=== PATIENT | male | born 1965 | race Caucasian/White ===

== ENCOUNTER 2023-05-02 11:37 | Outpatient (REF) | payer OTHER, SELFPAY ==
[2023-05-02 13:15] LABS: MANUAL DIFF FLAG NO
[2023-05-02 13:30] LABS: Basophils Percent Auto 0.3 % (0-2); Eosinophils Absolute Auto 0.2 X10*3/uL (0.0-0.4); Eosinophils Percent Auto 2.9 % (0-4); Hematocrit 46.2 % (42.0-52.0); Hemoglobin 15.3 g/dl (14.0-18.0); Imm Gran Abs Auto 0.01 X10*3/uL (0.00-0.03); Imm Gran Pct Auto 0.2 % (0.0-0.4); Lymphocytes Absolute Auto 1.7 X10*3/uL (1.2-4.9); Lymphocytes Percent Auto 27.3 % (20-40); Mean Corpuscular HGB Conc 33.1 g/dl (31.0-36.0); Mean Corpuscular Volume 96.7 fL (80.0-98.0); Mean Platelet Volume 10.8 fL (9.4-12.4); Monocytes Absolute Auto 0.6 X10*3/uL (0.1-1.2); Monocytes Percent Auto 10.2 % (2-11); Neutrophils Absolute Auto 3.7 x10*3/uL (2.0-8.3); Neutrophils Percent Auto 59.1 % (45-73); Platelet Count 201 X10*3/uL (160-400); Red Blood Count 4.78 X10*6/uL (4.60-5.80); Red Cell Distribution Width 13.1 % (11.0-16.0); White Blood Count 6.3 X10*3/uL (4.8-10.8)
[2023-05-02 13:47] LABS: Alanine Aminotransferase 25 U/L (0-40); Albumin Level 4.1 g/dL (3.5-5.0); Alkaline Phosphatase 70 U/L (39-117); Anion Gap 9 (12-20); Aspartate Amino Transferase 18 U/L (5-37); Bilirubin Direct 0.1 mg/dL (0.0-0.5); Bilirubin Total 0.3 mg/dL (0.0-1.0); Blood Urea Nitrogen 18 mg/dL (9-16); Carbon Dioxide 28 mmol/L (22-29); Chloride 108 mmol/L (96-108); Estimated Glomerular Filt Rate > 60; Glucose Random 106 mg/dL (60-115); Potassium 3.9 mmol/L (3.3-5.1); Sodium 141 mmol/L (135-145)
[2023-05-02 14:04] LABS: TSH reflex Free T4 0.35 uIU/mL (0.32-4.0)
[2023-05-08 19:48] LABS: Acetylcholine Recept. Blocking <15 (<15)
== END 2023-05-02 11:38 | disposition home or self-care (01) ==
LOC: HO.HHCL 11:37
PROVIDERS: Visit Provider Internal Medicine
DX: G12.29 Other motor neuron disease (principal)
CPT/HCPCS: 36415; 80048; 80076; 83519; 84443; 85025

== ENCOUNTER 2023-05-09 09:26 | Outpatient (REF) | payer OTHER, SELFPAY ==
[2023-05-10 10:13] LABS: Triiodothyronine T3 Free 3.2 pg/mL (2.3-4.2); Triiodothyronine T3 Total 117 ng/dL (76-181)
== END 2023-05-09 09:27 | disposition home or self-care (01) ==
LOC: HO.HHCL 09:26
PROVIDERS: Visit Provider Internal Medicine
DX: R29.2 Abnormal reflex (principal)
CPT/HCPCS: 36415; 84439; 84480; 84481

== ENCOUNTER 2023-10-28 10:45 | Outpatient (REF) | payer OTHER, SELFPAY ==
[2023-10-28 14:16] LABS: MANUAL DIFF FLAG NO
[2023-10-28 14:18] LABS: Basophils Percent Auto 0.7 % (0-2); Eosinophils Absolute Auto 0.2 X10*3/uL (0.0-0.4); Eosinophils Percent Auto 2.4 % (0-4); Hematocrit 46.9 % (42.0-52.0); Hemoglobin 15.9 g/dl (14.0-18.0); Imm Gran Abs Auto 0.02 X10*3/uL (0.00-0.03); Imm Gran Pct Auto 0.3 % (0.0-0.4); Lymphocytes Absolute Auto 1.5 X10*3/uL (1.2-4.9); Lymphocytes Percent Auto 24.9 % (20-40); Mean Corpuscular HGB Conc 33.9 g/dl (31.0-36.0); Mean Corpuscular Hemoglobin 32.5 pg (27.0-33.0); Mean Corpuscular Volume 95.9 fL (80.0-98.0); Mean Platelet Volume 11.5 fL (9.4-12.4); Monocytes Absolute Auto 0.6 X10*3/uL (0.1-1.2); Monocytes Percent Auto 9.3 % (2-11); Neutrophils Absolute Auto 3.8 x10*3/uL (2.0-8.3); Neutrophils Percent Auto 62.4 % (45-73); Platelet Count 154 X10*3/uL (160-400); Red Blood Count 4.89 X10*6/uL (4.60-5.80); Red Cell Distribution Width 13.2 % (11.0-16.0); White Blood Count 6.1 X10*3/uL (4.8-10.8)
[2023-10-28 14:49] LABS: Alanine Aminotransferase 28 U/L (0-40); Albumin Level 4.1 g/dL (3.5-5.0); Alkaline Phosphatase 80 U/L (39-117); Anion Gap 11 (12-20); Aspartate Amino Transferase 18 U/L (5-37); Bilirubin Total 0.5 mg/dL (0.0-1.0); Blood Urea Nitrogen 14 mg/dL (9-16); Calcium 9.8 mg/dL (8.4-10.2); Carbon Dioxide 25 mmol/L (22-29); Chloride 108 mmol/L (96-108); Cholesterol 174 mg/dL (<200); Estimated Glomerular Filt Rate > 60; Glucose Random 101 mg/dL (60-115); HDL Cholesterol 55 mg/dL (>40); LDL Cholesterol Calculated 107 mg/dL (<100); Potassium 3.9 mmol/L (3.3-5.1); Sodium 140 mmol/L (135-145); Total Protein 7.2 g/dL (6.5-8.0); Triglycerides 62 mg/dL (<150)
[2023-10-28 14:51] LABS: TSH reflex Free T4 0.45 uIU/mL (0.32-4.0); Vitamin D 25-OH Total 18.1 ng/mL (>30)
[2023-10-28 14:52] LABS: Microalbum/Creatinine Ratio Ur 9.3 ug/mg cr (<30)
[2023-10-29 04:27] LABS: HBS Num1 0.47 mIU/mL (0-7.99); HBc Num1 0.12 S/CO (0.00-0.79); HBsAGNum1 0.23 S/CO (0.00-0.99); HIV AB/AG Nonreactive (Nonreactive); HIV Num 1 0.05 S/CO (0.00-0.99); Hepatitis B Core Antibody Nonreactive (Nonreactive); Hepatitis B Surface Antigen Negative (Negative); ~Hepatitis B Surface Antibody NONREACTIVE (Nonreactive); ~Hepatitis C Antibody Nonreactive (Nonreactive)
[2023-10-31 11:28] LABS: Free Prostate Spec Ag 0.3 ng/mL; Percent Free Prostate Spec Ag 8 % (calc) (>25)
== END 2023-10-28 10:46 | disposition home or self-care (01) ==
LOC: HO.CHCLDS 10:45
PROVIDERS: Visit Provider Family Medicine
DX: Z11.4 Encounter for screening for human immunodeficiency virus [HIV] (principal); Z12.5 Encounter for screening for malignant neoplasm of prostate; E66.9 Obesity, unspecified; Z68.32 Body mass index [BMI] 32.0-32.9, adult
CPT/HCPCS: 36415; 80053; 80061; 82043; 82306; 82570; 84153; 84154; 84443; 85025; 86704; 86706; 86803; 87340; 87389

== ENCOUNTER 2023-11-14 15:07 | Outpatient (REF) | payer OTHER, SELFPAY | END 2023-11-14 15:08 | disposition home or self-care (01) | LOC: HO.CHCLNP 15:07 | PROVIDERS: Visit Provider Family Medicine | DX: K21.9 Gastro-esophageal reflux disease without esophagitis (principal) | CPT/HCPCS: 87338 ==

== ENCOUNTER 2023-11-28 13:16 | Outpatient (AMB) | payer OTHER, SELFPAY ==
--- NOTE | 2023-11-28 13:19 | A.OFFVIS_ITS ---
Vital Signs 3 11/28/23 13:31 Height 5 ft 7 in Weight 207 lb BMI 32.4 BP 148/84 H Blood Pressure Location Lt brachial Position Sitting Pulse 77 Intake Visit Reasons: Umbilical hernia Intake Note: Patient is seen in office for evaluation and treatment of an umbilical hernia. 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 Announcer Language: Conformal Pad Former Name: Verónica TINOCO Information Interpreted: non-clinical & clinical Accompanied by: Self / Same As Patient Medication List - Last Reconciled 11/28/23 by Brett Manzo MD albuterol sulfate 90 mcg/actuation inhalation amlodipine 2.5 mg PO DAILY betamethasone valerate 0.1% topical blood pressure test kit-large As directed cetirizine 10 mg PO DAILY lisinopril 10 mg PO DAILY pantoprazole 20 mg PO DAILY tizanidine 2 mg PO BID PRN tramadol 50 mg PO TID PRN HPI Comments Details: 58-year-old male patient presenting for evaluation of a possible recurrent umbilical hernia. For the past month he is noted increased pain in the umbilicus especially with bending. He also reports nausea and vomiting with more diffuse abdominal pain on occasion. He denies fever or chills. Previously underwent repair of bilateral inguinal hernias and an umbilical hernia. No information is available regarding this repair at the time of this visit. He reports feeling a swelling in the umbilicus which is causing pain. [facility] Surgical History Hx of release of tendon Hx of bilateral inguinal hernia repair Social History Alcohol intake: current Patient Tobacco Use Status: Never used Tobacco Review of Systems Const All systems reviewed & are unremarkable except as noted in HPI and below GI Reports abdominal pain, Reports nausea and Reports vomiting Physical Exam Vital Signs: Last Vital Signs Pulse 77 11/28/23 13:31 BP 148/84 H 11/28/23 13:31 BMI result Body Mass Index 32.4 Const General: cooperative and no acute distress Nutritional Appearance: well nourished Orientation/consciousness: patient oriented x3 Limitations: no limitations HEENT Head: Yes normocephalic and Yes atraumatic Ears: hearing grossly normal bilaterally Resp Effort & Inspection: normal respiratory effort, no audible wheezes, no cough and no respiratory distress Cardio Jugular venous distension: no JVD GI Other: Soft, large abdominal pannus, well-healed umbilical incision with tenderness to palpation. Patient examined in the standing position with Valsalva maneuvers. No definite hernias appreciated although tenderness is definitely elicited. Inspection: Yes normal to inspection Abdomen image: 2 1. Incision over umbilicus Skin Other: Warm, dry, no rash Neuro General: patient oriented x3 Extrem General: Yes no clubbing, cyanosis or edema Assessment & Plan Assessment & Plan (1) Recurrent umbilical hernia: Code(s): K42.9 - Umbilical hernia without obstruction or gangrene Category: Medical Plan 58-year-old male patient presenting with a possible recurrent umbilical hernia mainly complaining of pain, nausea and vomiting. I am unable to definitely confirmed a recurrent umbilical hernia and have therefore recommended a CT abdomen and pelvis. He will return following the study to review the results and discuss treatment options. He expressed understanding and agrees with the plan. Orders: Orders 2 CT abdomen pelvis wo IV con Today K42.9 - Umbilical hernia without obstruction or gangrene Coding Level of Care Code New Pt Level 4 (94253) Diagnoses Recurrent umbilical hernia K42.9
[2023-11-28 13:31] VITALS: BP 148/84; PULSE 77; BMI 32.4
== END 2023-11-28 13:40 | disposition home or self-care (01) ==
PROVIDERS: PCP Family Medicine; Referring Provider Family Medicine; Visit Provider Surgery
DX: K42.9 Umbilical hernia without obstruction or gangrene (principal)
CPT/HCPCS: 99203

== ENCOUNTER 2023-11-28 13:16 | Outpatient (REF) | payer OTHER, SELFPAY ==
--- NOTE | ~2023-11-28 | XR_ITS ---
EXAMINATION: XR ELBOW, RIGHT CLINICAL INFORMATION: Lateral elbow pain COMPARISON: None available. TECHNIQUE: AP, lateral, and oblique views of the right elbow. FINDINGS: The bones are intact. No acute fracture or joint effusion. Alignment is anatomic. Joint spaces are maintained. There is mild soft tissue swelling over the olecranon. On the lateral view, small ossific or calcific density is seen in the region of the coronoid process. XR/XR elbow RT 2V IMPRESSION: 1. No acute bony abnormality. 2. Small ossific or calcific density in the region of the coronoid process on the lateral view.
== END 2023-11-28 13:17 | disposition home or self-care (01) ==
LOC: HO.XRAY 13:16
PROVIDERS: PCP Family Medicine; Referring Provider Family Medicine; Visit Provider Surgery
DX: M77.11 Lateral epicondylitis, right elbow (principal); K42.9 Umbilical hernia without obstruction or gangrene
CPT/HCPCS: 73070; 99202

== ENCOUNTER 2024-01-17 08:18 | Outpatient (REF) | payer OTHER, SELFPAY ==
--- NOTE | ~2024-01-17 | CT_ITS ---
EXAMINATION: CT ABDOMEN AND PELVIS WITHOUT CONTRAST CLINICAL INFORMATION: Umbilical hernia without obstruction or gangrene. COMPARISON: None available. TECHNIQUE: Multidetector volumetric imaging was performed from the superior aspect of the liver through the pubic symphysis. Sagittal and coronal reformatted images were obtained on the technologist's workstation. This CT examination was performed using dose optimization techniques as appropriate, variously including the following: *Automated exposure control *Adjustment of mA and/or kV according to patient size (this includes techniques or standardized protocols for targeted exams where dose is matched to indication/reason for exam; i.e. extremities or head) *Use of iterative reconstruction technique DLP: 543 mGy-cm FINDINGS: LUNG BASES: There is mild bibasilar small airway thickening. A small benign, calcified granuloma is seen at the posterior left costophrenic angle. There are foci of minor scar/subsegmental atelectasis at the posterior right base. LIVER, GALLBLADDER, AND BILIARY TREE: The liver is normal in size, shape, and attenuation. No focal hepatic lesion or biliary ductal dilatation is present. The gallbladder is unremarkable with no evidence of radiopaque gallstones, gallbladder wall thickening, or obvious pericholecystic inflammatory changes. PANCREAS: Unremarkable. SPLEEN: Unremarkable. ADRENAL GLANDS: Unremarkable. KIDNEYS AND URETERS: The kidneys are normal in size, shape, and attenuation. No hydronephrosis, hydroureter, or calculi seen. No perinephric stranding. BLADDER: Unremarkable. GASTROINTESTINAL TRACT: There is mild diverticulosis, without acute diverticulitis. No bowel obstruction, free intraperitoneal air or abscess is seen. There is no focal bowel wall thickening. The vermiform appendix is surgically absent. ABDOMINAL WALL: There is a small fat-containing umbilical hernia, with neck measuring 0.9 x 1.1 cm (3:56 and 7:85). LYMPH NODES: No sizable abdominopelvic lymphadenopathy is seen. VASCULAR: Unremarkable. PELVIC VISCERA: The prostate and seminal vesicles are unremarkable. OSSEOUS STRUCTURES: There is multi-level marked lower thoracic and mild to moderate lumbar spondylosis. There is degenerative disc disease, most pronounced extending from T7-T8 through T11-T12, with vacuum disc phenomenon. No acute or aggressive osseous finding is seen. CT/CT abdomen pelvis wo IV con IMPRESSION: 1. There is a small fat-containing umbilical hernia, with dimensions as detailed. 2. There is mild diverticulosis, without acute diverticulitis. 3. There are multi-level degenerative changes of the spine. 4. There is are foci of minor scar/subsegmental atelectasis at the posterior right base. Fleischner guidelines were followed.
== END 2024-01-17 08:19 | disposition home or self-care (01) ==
LOC: HO.CT 08:18
PROVIDERS: PCP Family Medicine; Visit Provider Surgery
DX: K42.9 Umbilical hernia without obstruction or gangrene (principal)
CPT/HCPCS: 74176

== ENCOUNTER 2024-02-20 15:10 | Outpatient (AMB) | payer OTHER, SELFPAY ==
--- NOTE | 2024-02-20 15:11 | MHC.OFFVIS ---
Vital Signs 02/20/24 15:23 Height 5 ft 7 in Weight 208 lb BMI 32.6 BP 136/77 Blood Pressure Location Lt brachial Position Sitting Pulse 72 Intake Visit Reasons: Ct scan results, following umbilical hernia Intake Note: Patient is seen in office for CT scan results, following umbilical hernia. Pt c/o: here for results, hernia is still painful when bending CT:01/17/24 Harp Regulator Required: No Accompanied by: Self / Same As Patient Allergies No Known Allergies Allergy (Verified 02/20/24 15:24) HPI Comments Details: 58-year-old male patient presenting for evaluation of a possible recurrent umbilical hernia. For the past month he is noted increased pain in the umbilicus especially with bending. He also reports nausea and vomiting with more diffuse abdominal pain on occasion. He denies fever or chills. He previously underwent repair of bilateral inguinal hernias and an umbilical hernia. Since his last visit he continues to feel pain and swelling at the umbilicus. He underwent evaluation with CT abdomen and pelvis and returns today to review the results. The CT reveals a small fat containing umbilical hernia measuring approximately 1 cm in diameter. There is no evidence of surrounding inflammation. The images were reviewed in detail with the patient. [facility] Surgical History Hx of release of tendon Hx of bilateral inguinal hernia repair Social History Alcohol intake: current Patient Tobacco Use Status: Never used Tobacco Review of Systems Const All systems reviewed & are unremarkable except as noted in HPI and below GI Reports abdominal pain, Reports nausea and Reports vomiting Physical Exam Vital Signs: Last Vital Signs Pulse 72 02/20/24 15:23 BP 136/77 02/20/24 15:23 BMI result Body Mass Index 32.6 Const General: cooperative and no acute distress Nutritional Appearance: well nourished Orientation/consciousness: patient oriented x3 Limitations: no limitations HEENT Head: Yes normocephalic and Yes atraumatic Ears: hearing grossly normal bilaterally Resp Effort & Inspection: normal respiratory effort, no audible wheezes, no cough and no respiratory distress Cardio Jugular venous distension: no JVD GI Other: Soft, large abdominal pannus, well-healed umbilical incision with tenderness to palpation. Patient examined in the standing position with Valsalva maneuvers. No definite hernias appreciated although tenderness is definitely elicited. Inspection: Yes normal to inspection Skin Other: Warm, dry, no rash Neuro General: patient oriented x3 Extrem General: Yes no clubbing, cyanosis or edema Assessment & Plan Assessment & Plan (1) Recurrent umbilical hernia: Code(s): K42.9 - Umbilical hernia without obstruction or gangrene Category: Medical Plan 58-year-old male patient returning to review CT findings. He continues to have discomfort at his umbilicus and feels an area of swelling. CT scan confirms a small fat containing umbilical hernia measuring approximately 1 cm in diameter. I recommended repair of this umbilical hernia with mesh. After review of the procedure, risks and alternatives, he consents to repair of the umbilical hernia with mesh. This will be scheduled as a short-stay surgery. Coding Level of Care Code Est Pt Level 3 (34526) Diagnoses Recurrent umbilical hernia K42.9
[2024-02-20 15:23] VITALS: BP 136/77; PULSE 72; BMI 32.6
== END 2024-02-20 15:55 | disposition home or self-care (01) ==
PROVIDERS: PCP Family Medicine; Visit Provider Surgery
DX: K42.9 Umbilical hernia without obstruction or gangrene (principal)
CPT/HCPCS: 99213

== ENCOUNTER → 2024-02-20 15:10 | Outpatient (BNVA) | payer OTHER, SELFPAY | PROVIDERS: PCP Family Medicine; Visit Provider Surgery | DX: K42.9 Umbilical hernia without obstruction or gangrene (principal) | CPT/HCPCS: 99212 ==

== ENCOUNTER 2024-03-26 | Outpatient (REF) | payer OTHER, SELFPAY ==
--- NOTE | 2024-03-26 | ECG_ITS ---
Test Reason : PREOP Blood Pressure : / mmHG Vent. Rate : 067 BPM Atrial Rate : 067 BPM P-R Int : 138 ms QRS Dur : 092 ms QT Int : 412 ms P-R-T Axes : 038 -16 -02 degrees QTc Int : 435 ms Normal sinus rhythm Inferior infarct , age undetermined Abnormal ECG No previous ECGs available Referred By: Keiko Alonso Electronically Signed By:CHRISTIN JORDAN
[2024-03-26 10:06] VITALS: BMI 33.2
--- NOTE | 2024-03-26 10:10 | HO.ANESPROP2 ---
HPI - Anesthesia Eval Consult details Narrative: Abnormal EKG and c/o CP. Needs cardiac eval. 58yo M for Recurrent Hernia Umbilical Reducible with mesh, 04/01/24 No recent illnesss LAZO and CP with stairs, exercise - resolves with inhaler. Pt feels CP related to asthma. Will check EKG. GERD: untreated, symptomatic Asthma: albuterol ~ 2 x weekly PMFSH Active Problems Active Problems: All Active Problems Recurrent umbilical hernia (Acute) Past Medical History Medical History (Updated 03/26/24 @ 09:53 by Oliva Sanders RN) Arthritis Back pain Scoliosis Cough Habitual snoring Bronchitis Asthma Chest pain Nocturia GERD (gastroesophageal reflux disease) HTN (hypertension) Family History Family history of problems with anesthesia: No (sister and mom long to wake) Surgical History Surgical History (Updated 03/26/24 @ 09:57 by Oliva Sanders RN) Hx of hernia repair Hx of release of tendon Hx of bilateral inguinal hernia repair History of Problems with Anesthesia: No Social History Social History Are you a primary behavioral health care coordinator to a significant other at home: No Do you presently have visiting nurse or other home services: No Alcohol intake: current Alcohol intake frequency: 0-2 drinks per day Patient Tobacco Use Status: Never used Tobacco Use of substances other than those prescribed or required for medical reasons: No Have you been hit, kicked, punched, or otherwise hurt by someone within the past year? If so, by whom?: No Are you DNR?: No Advance Directives: No Advance Directives Information Provided: No Advance Directives on File: No Recently lost weight without trying: No Eating poorly because of decreased appetite: No Nutrition Risks: No Nutritional Risk Poor oral hygiene: Yes (lower missing teeth) Meds Allergies Allergy/AdvReac Type Severity Reaction Status Date / Time No Known Allergies Allergy Verified 02/20/24 15:24 Home Medications ?Medication ?Instructions ?Recorded ?Confirmed ?Last Taken ?Type albuterol sulfate 90 mcg/actuation 2 inh inhalation Q6-8H PRN 11/28/23 03/26/24 Unknown History aerosol inhaler Shortness Of Breath Or Wheezing amlodipine 2.5 mg tablet 2.5 mg PO DAILY 11/28/23 03/26/24 Unknown History betamethasone valerate 0.1 % 1 appl topical DAILY 11/28/23 03/26/24 Unknown History topical ointment blood pressure test kit-large #1 ea 11/28/23 11/28/23 Unknown History cetirizine 10 mg tablet 10 mg PO DAILY 11/28/23 03/26/24 Unknown History tizanidine 2 mg tablet 2 mg PO BID PRN muscle spasm 11/28/23 03/26/24 Unknown History tramadol 50 mg tablet 50 mg PO TID PRN Pain 11/28/23 03/26/24 Unknown History Exam Pertinent Lab Results Pertinent Lab Results: Laboratory Tests 10/28/23 10:49 WBC 6.1 Hgb 15.9 Hct 46.9 Plt Count 154 L Sodium 140 Potassium 3.9 Chloride 108 Carbon Dioxide 25 BUN 14 Creatinine 0.93 Airway Mallampati Class: II TM Dist: <=3cm Neck ROM: Full Loose/Missing/Broken Teeth: No (crowned molar) Heart: RRR Lungs: CTAB Assessment and Plan Assessment Anesthesia Assessment: Anesthesia Plan Discussed and PAT Visit Final Anesthetic Review Family History of Problems with Anesthesia: No (sister and mom long to wake) History of Problems with Anesthesia: No
[2024-03-26 10:11] VITALS: BP 120/78; PULSE 76; RESP 16; O2SAT 95
== END 2024-03-26 00:01 | disposition home or self-care (01) ==
LOC: HO.PAT
PROVIDERS: PCP Family Medicine; Visit Provider Surgery
DX: Z01.818 Encounter for other preprocedural examination (principal)
CPT/HCPCS: 93005

== ENCOUNTER 2024-05-08 12:37 | Outpatient (AMB) | payer OTHER, SELFPAY ==
[2024-05-08 12:51] VITALS: BP 110/70; PULSE 66; BMI 32.9
--- NOTE | 2024-05-08 12:51 | A.OFFVIS_ITS ---
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 Fulfillment Mail Clerk: Fulfillment Mail Clerk Present Accompanied by: Sister Allergies No Known Allergies Allergy (Verified 05/08/24 12:54) Medication List - Last Reconciled 05/08/24 by THUAN Ca albuterol sulfate 90 mcg/actuation 2 inhalations inhalation Q6-8H PRN amlodipine 5 mg PO DAILY betamethasone valerate 0.1% 1 appl topical DAILY blood pressure test kit-large As directed cetirizine 10 mg PO DAILY tizanidine 2 mg PO BID PRN tramadol 50 mg PO TID PRN HPI HPI Preop/dr y[place]/card clearance - umb hernia: Details: Howard is a 58-year-old male with past medical history of hypertension, pre diabetes, umbilical hernia in need of repair who had EKG showing old inferior infarct who was referred for cardiac evaluation and preop clearance. Today he presents for cardiology consultation. He tells me he does get random left-sided chest pressure. This can happen during physical activity and at rest. He does have shortness of breath with exertional activities. He admits to shortness of breath with climbing a flight of stairs. No PND, orthopnea or edema. No heart palpitations, lightheadedness, presyncope, syncope, falls. 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 He is a nonsmoker. He does drink 4-5 beers weekly. He has never been diagnosed with any heart problems. He has no known family history of heart disease. Sister is present and she is assisting with French translation at their request. She reports that patient has chronic issues with difficulty swallowing and choking on his food. He does this with every meal, every day. He is not able to go to restaur ants. This has been ongoing for the last 3-4 years. Patient is in agreement to what she is saying. They are asking for help. [facility] Medical History Arthritis Back pain Scoliosis Cough Habitual snoring Bronchitis Asthma Chest pain Nocturia GERD (gastroesophageal reflux disease) HTN (hypertension) Surgical History Hx of hernia repair Hx of release of tendon Hx of bilateral inguinal hernia repair Social History Are you a primary patient care manager to a significant other at home: No Do you presently have visiting nurse or other home services: No Alcohol intake: current Alcohol intake frequency: 0-2 drinks per day Patient Tobacco Use Status: Never used Tobacco Review of Systems Const All systems reviewed & are unremarkable except as noted in HPI and below ENT Denies dizziness Card Reports chest pain, Reports chest pain at rest, Denies chest pain with activity, Denies rapid heart rate, Denies pedal edema, Denies edema, Denies leg edema, Denies lightheadedness, Denies palpitations, Denies dyspnea, Reports dyspnea on exertion and Denies orthopnea Resp Denies cough, Denies dyspnea and Reports dyspnea on exertion GI Denies hematochezia and Denies change in stool character Musc Denies abnormal gait, Denies limited range of motion, Denies muscle cramps, Denies muscle weakness, Denies numbness, Denies radiating pain into limb, Denies stiffness and Denies tingling Neuro Denies abnormal gait, Denies dizziness, Denies numbness and Denies tingling Endo Denies palpitations Physical Exam Vital Signs: BMI result Body Mass Index 32.9 Const General: cooperative, healthy appearing, comfortable and no acute distress Orientation/consciousness: patient oriented x3 Neck Neck: Yes normal visual inspection and Yes no JVD Resp Effort & Inspection: normal respiratory effort Auscultation: clear to auscultation bilaterally, no crackles, no rales, no rhonchi and no wheezes Cardio Rate: regular rate Rhythm: regular rhythm Heart sounds: S1 normal heart sound present, S2 normal heart sound present, no murmurs and no rubs Neuro General: patient oriented x3 Extrem General: Yes normal to inspection and No no pedal edema Psych Appearance: grossly normal Mental Status: mental status grossly normal Speech and movement: Normal speech and movement present Office Procedures EKG Details: Today, read by me, normal sinus rhythm, inferior infarct, rate 66, QTC 440 milliseconds [id number], Complete Assessment & Plan Assessment & Plan (1) Abnormal EKG: Code(s): R94.31 - Abnormal electrocardiogram [ECG] [EKG] Category: Medical Plan: EKG done recently showing normal sinus rhythm with inferior infarct. Patient has no known history of heart disease, prior [place]. he has cardiac risk factors of hypertension and borderline diabetes. He does report atypical sounding chest discomfort and he has shortness of breath with exertional activities. He is preop for umbilical hernia surgery. Will check a echocardiogram to assess for structural abnormalities. Will check a pharmacological nuclear stress test to evaluate for ischemia. If there is a delay in getting this test done then will plan for a CTA of the coronary arteries instead. Each of these tests were reviewed with him in detail. Signs and symptoms of angina reviewed with him. Emergency care if ever needed for symptoms. Cardiology follow-up in 2 months, sooner if needed. (2) HTN (hypertension): Code(s): I10 - Essential (primary) hypertension Category: Medical Plan: Blood pressure normal at this time. He is on low-dose amlodipine. No changes made. (3) Preop cardiovascular exam: Code(s): Z01.810 - Encounter for preprocedural cardiovascular examination Category: Medical Plan: Preop for umbilical hernia repair. No date yet. EKG does show finding of inferior infarct, rate 66. EKG reviewed from [facility] 02/14/2020 shows sinus rhythm, no inferior Q-waves. For further evaluation cardiac testing being done as above. Once test results are known -preop clearance can be complete. (4) Dysphagia: Code(s): R13.10 - Dysphagia, unspecified Category: Medical Plan: Patient has had difficulty swallowing and coughs and chokes on his food every meal, every day for the last 3-4 years. It greatly affects his life as he can not eat around people, in restaurants. His sister states that family members do not want him eating near them as they feel he is going to choke. I will refer him to the GI department for evaluation. It seems he needs an upper endoscopy. Will forward this note to his PCP. Plan Time spent on chart review, documentation, interview, assessment Orders: Orders CA echo transthoracic complete Today R94.31 - Abnormal electrocardiogram [ECG] [EKG], Z01.810 - Encounter for preprocedural cardiovascular examination CA lexiscan stress w lindsey Today I10 - Essential (primary) hypertension, R94.31 - Abnormal electrocardiogram [ECG] [EKG], Z01.810 - Encounter for preprocedural cardiovascular examination NM cardiolite stress test Today I10 - Essential (primary) hypertension, R94.31 - Abnormal electrocardiogram [ECG] [EKG], Z01.810 - Encounter for preprocedural cardiovascular examination Referrals Gastroenterology Referral R13.10 - Dysphagia, unspecified Coding Level of Care Code New Pt Level 4 (22850) Complex EM visit Add On G2211 Diagnoses Abnormal EKG R94.31 HTN (hypertension) I10 Preop cardiovascular exam Z01.810 Dysphagia R13.10 CPT Codes EKG - CPT: 30312-[id number], Complete ([id number]) Time Spent (min) 30
== END 2024-05-08 13:29 | disposition home or self-care (01) ==
PROVIDERS: PCP Family Medicine; Visit Provider Nurse Practitioner Family
DX: R94.31 Abnormal electrocardiogram [ECG] [EKG] (principal); I10 Essential (primary) hypertension; Z01.810 Encounter for preprocedural cardiovascular examination; R13.10 Dysphagia, unspecified
CPT/HCPCS: 93010; 99204; G2211

== ENCOUNTER → 2024-05-08 12:37 | Outpatient (BNVA) | payer OTHER, SELFPAY | PROVIDERS: PCP Family Medicine; Visit Provider Nurse Practitioner Family | DX: Z01.810 Encounter for preprocedural cardiovascular examination (principal); I10 Essential (primary) hypertension; R94.31 Abnormal electrocardiogram [ECG] [EKG]; R13.10 Dysphagia, unspecified | CPT/HCPCS: 93005; 99202 ==

== ENCOUNTER → 2024-05-28 13:06 | Outpatient (REF) | payer OTHER, SELFPAY ==
--- NOTE | 2024-05-28 13:08 | CA_ITS ---
Transthoracic Echocardiogram Patient (Last, First, Middle): Howard Carson, Gender: Male Date of : 1965 Age: 59 Procedure Date: 05/28/2024 Procedure Type: Transthoracic Echocardiogram Location: OP Height: 170. cm Weight: 93.9 kg BSA: 2.05 m2 Heart Rate: 60 bpm BP: 120 / 78 mmHg Frame Operator: BEATRICE Naylor MD: Sherlyn Duarte WORLD TRAVEL COUNSELOR-Marisela Claim Rep: Tyler Ruiz MD Symptoms: R94.31 - Abnormal electrocardiogram [ECG] [EKG] Study Quality: Fair ECG Rhythm: Sinus Conclusions: - 1. Normal LV ejection fraction of 60 65% with mild asymmetric septal hypertrophy 2. Normal cardiac valvular Dopplers 3. Normal RV systolic pressure 4. Mildly dilated ascending aorta at 3.8 cm 5. No pericardial effusion Findings Left Ventricle Normal left ventricular size, thickness, and systolic function. The visually estimated ejection fraction is between 60-65%. Spectral Doppler is indicative of a normal filling pattern. There is mild septal asymmetric hypertrophy. Right Ventricle Normal right ventricular cavity size and systolic function. Atria The left atrium is normal in size. There is no evidence of interatrial shunt. The right atrium is normal in size. Aortic Valve Normal aortic valve structure and function. There is no aortic valve stenosis. There is no aortic valve regurgitation. Mitral Valve Normal mitral valve structure and function. There is trace mitral valve regurgitation. There is no mitral valve stenosis. Pulmonic Valve The pulmonic valve is likely normal. Tricuspid Valve Normal tricuspid valve structure. There is mild tricuspid valve regurgitation. The right ventricular systolic pressure is normal. The right ventricular systolic pressure is 33 mmHg. Normal right atrial pressure. There is no evidence of pulmonary hypertension. Great Vessels The pulmonary artery was not well visualized. There is mild dilatation of the ascending aorta measuring 3.80 cm. Venous The inferior vena cava is normal in size and collapses greater than 50% with inspiration. Pericardium/Pleural There is no evidence of pericardial effusion. Prior Study Comparison No prior study available for comparison. Measurements 2D Linear Measurements IVSd: 1.49 0.6-0.9/0.6-1.0 cm LVIDd: 4.45 3.9-5.3/4.2-5.9 cm LVIDd Index: 2.17 2.4-3.2/2.2-3.1 cm/m2 LVIDs: 2.37 2.0-3.6 cm LVPWd: 1.15 0.7-1.1 cm LA Diam: 4.00 2.7-3.8/3.0-4.0 cm LAIDs Index: 1.95 1.5-2.3 cm/m2 LV Mass: 279.01 67-162/88-224 g LV Mass Index: 136.10 43-95/49-115 g/m2 LVOT Diam: 2.20 3.0+(-)1.3 cm 2D Systolic Function EF 4C: 61.20 >55% EF 2C: 56.70 >55% EF BiP: 58.50 >55% Mitral Valve MV Pk E: 0.65 MV PK A: 0.42 MV Decel Time: 176.00 E/A: 1.60 E'Lateral: 11.90 E'Medial: 7.18 E/E' Med: 9.10 E/E' Lat: 5.50 PHT: 52.00 MVA PHT: 4.23 Decel [place]: 3.70 Aortic Valve AoV Pk Reyes: 1.40 AoV Mn Reyes: 1.01 AoV VTI: 0.30 AoV Pk Grad: 8.00 Aov Mn Grad: 4.00 NISSA Cont.VTI: 2.97 LVOT LVOT Pk Reyes: 1.15 LVOT Mn Reyes: 0.77 LVOT VTI: 0.23 LVOT Pk Grad: 5.00 LVOT Mn Grad: 3.00 LVOT Diam: 2.20 LVOT Area: 3.80 Diastolic Function MV Pk E: 0.65 MV Pk A: 0.42 E/A: 1.60 E'Medial: 7.18 E/E' Med: 9.10 E' Laterial: 11.90 E/E' Lat: 5.50 Right Ventricle TAPSE (mm): 17.50 Tricuspid Valve TR Pk Reyes: 2.51 TR Pk Grad: 25.00 RA Press: 8.00 RVSP: 33.00 Great Vessels Aorta Sinus of Valsalva: 3.60 2.0-3.5 cm Ao Asc: 3.80 2.1-3.4 cm Ao Arch: 3.10 Pulmonary Valve PV Pk Reyes: 0.86 Peak PV Grad: 3.00 Updated in Other Vendor System with Status of Final Jorge Martin MD electronically signed on 05/28/2024 2:52:00 PM with status of Final
== END ==
LOC: HO.CARD 13:06
PROVIDERS: PCP Family Medicine; Visit Provider Nurse Practitioner Family
DX: Z01.810 Encounter for preprocedural cardiovascular examination (principal); R94.31 Abnormal electrocardiogram [ECG] [EKG]
CPT/HCPCS: 93306

== ENCOUNTER → 2024-05-28 13:08 | Outpatient (BNV) | payer OTHER, SELFPAY | PROVIDERS: PCP Family Medicine; Visit Provider Internal Medicine Cardiovascular Disease | DX: I42.2 Other hypertrophic cardiomyopathy (principal); I36.1 Nonrheumatic tricuspid (valve) insufficiency | CPT/HCPCS: 93306 ==

== ENCOUNTER 2024-06-10 15:08 | Outpatient (AMB) | payer OTHER, SELFPAY ==
--- NOTE | 2024-06-10 15:09 | A.OFFVIS_ITS ---
Intake Visit Reasons: nocturia/ elevated PSA Intake Note: Patient is present for NOTURIA/ELEVATED PSA Urology Medication:NONE Antibiotic Allergy:NONE Blood Thinner:NONE TODAY'S PVR:0ML'S Roofing Laborer Required: No Roofing Laborer Name: JOANNA MULLERNGA Allergies No Known Allergies Allergy (Verified 06/10/24 15:26) Medication List - Last Reconciled 06/10/24 by MYRIAM Canela albuterol sulfate 90 mcg/actuation 2 inhalations inhalation Q6-8H PRN amlodipine 5 mg PO DAILY betamethasone valerate 0.1% 1 appl topical DAILY blood pressure test kit-large As directed cetirizine 10 mg PO DAILY tizanidine 2 mg PO BID PRN tramadol 50 mg PO TID PRN HPI Comments Details: Howard is a very pleasant 59-year-old Togolese-speaking male patient of . He has a past medical history of arthritis, back pain, scoliosis, bronchitis, asthma, GERD, and hypertension. He presents to the office today as a new patient for nocturia. In discussion with the patient today he reports noting episodes of nocturia at least 4 times per night. He reports the symptoms have been present for quite some time however feels they are worsening. He reports no other bothersome urinary issues. He denies urinary urgency, urinary frequency, incontinence, hematuria, dysuria, foul smelling urine, changes to urinary stream, flank pain, fever, and or chills. We discussed at length potential causes of nocturia. When asked he does report a history of habitual snoring and does feel fatigued upon wakening. We discussed further assessment evaluation with at home sleep study. We discussed obtaining retroperitoneal ultrasound for further assessment evaluation. In review of patient's chart it appears PSA was ordered and performed. These results were reviewed with the patient today. 11/14 4.0 % free PSA 8%. We discussed lifestyle modifications to assist with nocturia. We also discussed obtaining redraw of PSA. In office urinalysis results reviewed the patient today. PVR 0 mLs. GAY offered however deferred. He otherwise offers no other issues or concerns at this time. [facility] Medical History (Updated 06/10/24 @ 15:48 by MYRIAM Canela) Arthritis Back pain Scoliosis Cough Habitual snoring Bronchitis Asthma Chest pain Nocturia GERD (gastroesophageal reflux disease) HTN (hypertension) Surgical History Hx of hernia repair Hx of release of tendon Hx of bilateral inguinal hernia repair Social History Are you a primary care assistant to a significant other at home: No Do you presently have visiting nurse or other home services: No Alcohol intake: current Alcohol intake frequency: 0-2 drinks per day Patient Tobacco Use Status: Never used Tobacco Review of Systems Const All systems reviewed & are unremarkable except as noted in HPI and below Physical Exam Const General: cooperative, healthy appearing, comfortable, no acute distress, well developed, alert and awake Nutritional Appearance: overweight Orientation/consciousness: patient oriented x3 Limitations: no limitations HEENT Head: Yes normal to inspection, Yes normocephalic and Yes atraumatic Ears: hearing grossly normal bilaterally Eyes General: appearance normal, both eyes and all related structures Neck Neck: Yes normal visual inspection and Yes trachea midline Chest Chest palpation & inspection: normal inspection of the chest Resp Effort & Inspection: normal respiratory effort and able to speak in complete sentences Cardio Rate: regular rate GI Inspection: Yes normal to inspection General: Yes no CVA tenderness Back/Spine/Pelvis Back: no CVA tenderness Skin General skin exam: no rashes or lesions noted Neuro General: patient oriented x3 Extrem General: Yes normal to inspection Psych Appearance: grossly normal and well kempt Mental Status: mental status grossly normal Speech and movement: Normal speech and movement present and Clear speech present Affect: normal affect Attitude: cooperative Thought process: Normal thought process present Thought content: Normal thought content present Insight: Fair insight present (Psych) Judgement: Fair judgement present (Psych) Office Procedures Post Void Residual Post Residual Void Post Void Residual (PVR): [id number] Void Residual by ultrasound Assessment & Plan Assessment & Plan (1) Nocturia: Code(s): R35.1 - Nocturia Category: Medical (2) Snoring: Code(s): R06.83 - Snoring Category: Medical (3) Fatigue: Code(s): R53.83 - Other fatigue Category: Medical (4) Elevated PSA: Code(s): R97.20 - Elevated prostate specific antigen [PSA] Category: Medical Plan In office urinalysis results reviewed with the patient today; as noted above. PVR 0 mLs. We discussed at length potential causes of nocturia. Discussed obtaining sleep study for further assessment evaluation. We discussed obtaining retroperitoneal ultrasound for further assessment evaluation. Discussed redraw of PSA with no sex the night before, no caffeine morning of, and no heavy lifting 1-2 days prior. Discussed lifestyle modifications to assist with nocturia. GAY offered however deferred. We discussed possible near future in office cystoscopy and or urodynamics for further assessment evaluation. Follow-up in 1-3 months with imaging and labs; or sooner with any issues, concerns, and or questions. Orders: Orders RT home sleep study Today R06.83 - Snoring, R35.1 - Nocturia, R53.83 - Other fatigue US retroperitoneal comp Today R35.1 - Nocturia PSA,Total (Free>4and<10) Today R97.20 - Elevated prostate specific antigen [PSA] Patient Instructions: The patient had an opportunity to ask questions regarding the treatment plan. All questions were answered. Physical exam, labs, and imaging were discussed and reviewed in detail. As well as risks, benefits, and discussion of treatment choices. No major barriers to understanding were identified. The patient expressed understanding and agreement with the above treatment plan. The patient was made aware they should contact our office by phone for worsening of their current condition, the appearance of new symptoms, or with any questions or concerns. Compliance is encouraged with any medications and follow up testing that is ordered. It is a privilege to be allowed the opportunity to participate in? your urological care.? Again, if you have any questions or concerns If you have any questions or concerns please do not hesitate to contact me. The office is [phone]. This note is constructed using voice recognition software. While every effort has been made to ensure accuracy varnish maker helper errors may have been included. Yours sincerely, MYRIAM Canela Coding Level of Care Code New Pt Level 3 (23100) Diagnoses Nocturia R35.1 Snoring R06.83 Fatigue R53.83 Elevated PSA R97.20 CPT Codes Post Residual Void - PVR CPT Code: 19072-[id number] Void Residual by ultrasound ([id number])
== END 2024-06-10 15:49 | disposition home or self-care (01) ==
PROVIDERS: PCP Family Medicine; Visit Provider Nurse Practitioner Family
DX: R35.1 Nocturia (principal); R06.83 Snoring; R53.83 Other fatigue; R97.20 Elevated prostate specific antigen [PSA]
CPT/HCPCS: 99203

== ENCOUNTER → 2024-06-10 15:08 | Outpatient (BNVA) | payer OTHER, SELFPAY | PROVIDERS: PCP Family Medicine; Visit Provider Nurse Practitioner Family | DX: R35.1 Nocturia (principal); R06.83 Snoring; R53.83 Other fatigue; R97.20 Elevated prostate specific antigen [PSA] | CPT/HCPCS: 51798; 99202 ==

== ENCOUNTER → 2024-06-19 10:09 | Outpatient (REF) | payer OTHER, SELFPAY ==
--- NOTE | ~2024-06-19 | NM_ITS ---
Lexiscan Myocardial perfusion study Indication: Abnormal EKG evaluate for myocardial ischemia Technique: The patient was brought in for a Lexiscan perfusion study on 06/19/2024 and was injected 0.4 mg of Lexiscan intravenously. Within a minute of this injection 30 mCi of sestamibi was given intravenously. Images were obtained using the SPECT gamma camera interlaced with the gating device. Images were obtained in supine position. Resting perfusion study was performed on 06/22/2024. Patient was administered 30 mCi of sestamibi intravenously at rest. Images were then obtained in supine position. Images obtained with and without CT attenuation. Total DLP 124 mGy-cm. Images were processed with the software and compared side to side in short axis, horizontal long axis and vertical long axis views. Findings: The stress perfusion study showed nonattenuated images show minimal thinning of the basal septum and lateral wall which are nonspecific. Attenuated corrected images show overall normal uptake of radiotracer in all segments of the LV myocardium. The gated study shows normal LV systolic function with calculated LVEF of 65%. LV cavity is mildly dilated in size. The gated study shows normal systolic wall thickening and contraction of segments. Resting study shows no change in perfusion pattern compared to stress perfusion study on attenuated corrected images. Gating at rest reveals normal systolic wall motion with ejection fraction at 70%. The findings are consistent with likely normal myocardial perfusion. NM/NM cardiolite stress test Impression: 1. Myocardial perfusion imaging study shows normal myocardial perfusion 2. Gated LVEF is 65% 3. Transient ischemic dilatation not present Nondiagnostic changes on on EKG. Electronically signed by: Jorge Martin MD 06/23/2024 09:02 AM [facility]
--- NOTE | 2024-06-19 10:12 | CA_ITS ---
Acquisition Time: 2024-06-19 10:16:40 Total Exercise Time: 00:02:00 Test Indications: Abnormal ECG CP Medications: ALBUTEROL AMLODIPINE TRAMADOL TIZANADINE CETERIZINE Protocol: LEXISCAN Max HR: 086 BPM 53% of Pred: 160 BPM Max BP: 124/070 mmHG Max Work Load: 1.0 METS Pharmacologic stress test with Lexiscan while pt marches in his chair, with reports of mild SOB, headache, and reflux, no chest discomfort, without any arrythmias, with normotensive response to injection. Nondiagnostic EKG for ischemia. In recovery, pt treated with IVP Aminophylline 75 mg to reverse Lexiscan, after which pt feeling back to baseline. Nuclear images pending. Test reviewed with Dr. Ruiz. Referred By: Sherlyn Duarte Overread By: Kel Yanez
== END ==
LOC: HO.CARD 10:09
PROVIDERS: PCP Family Medicine; Visit Provider Nurse Practitioner Family
DX: Z01.810 Encounter for preprocedural cardiovascular examination (principal); I10 Essential (primary) hypertension; R94.31 Abnormal electrocardiogram [ECG] [EKG]
CPT/HCPCS: 78452; 93017; A9500; J0280; J2785

== ENCOUNTER → 2024-06-19 10:12 | Outpatient (BNV) | payer OTHER, SELFPAY | PROVIDERS: PCP Family Medicine | DX: R94.31 Abnormal electrocardiogram [ECG] [EKG] (principal) | CPT/HCPCS: 78452 ==

== ENCOUNTER 2024-06-22 13:41 | Emergency (ER) | payer OTHER, SELFPAY ==
--- NOTE | ~2024-06-22 | XR_ITS ---
EXAMINATION: XR CHEST CLINICAL INFORMATION: Chest pain and coughing with mucus production COMPARISON: None available. TECHNIQUE: 2 views of the chest were obtained. FINDINGS: The lungs are hypoexpanded but clear. The heart size and pulmonary vascularity is normal. No gross bony abnormality seen. XR/XR chest 2V IMPRESSION: Hypoexpanded lungs without acute process. Electronically signed by: Moisés Villatoro MD 06/22/2024 02:28 PM EST
[2024-06-22 13:56] VITALS: BP 124/72; PULSE 80; RESP 20; TEMP 36.9; O2SAT 96; BMI 32.6
--- NOTE | 2024-06-22 13:56 | ED_ITS ---
HPI - General Adult General Chief complaint: Upper Respiratory Symptoms Stated complaint: Diff Breathing Time Seen by Provider: 06/22/24 19:09 Source: patient Limitations: no limitations History of Present Illness ED Provider: Humera Larsen PA-C HPI narrative: 59-year-old male with a history of hypertension and asthma presents with cough and cold symptoms x2 days. Denies fever chest pain or shortness of breath. Patient states he has been using his inhaler, but his symptoms are persisting. Related Data Home Medications ?Medication ?Instructions ?Recorded ?Confirmed albuterol sulfate 90 mcg/actuation 2 inh inhalation Q6-8H PRN 11/28/23 05/08/24 aerosol inhaler Shortness Of Breath Or Wheezing betamethasone valerate 0.1 % 1 appl topical DAILY 11/28/23 05/08/24 topical ointment blood pressure test kit-large #1 ea 11/28/23 05/08/24 cetirizine 10 mg tablet 10 mg PO DAILY 11/28/23 05/08/24 tizanidine 2 mg tablet 2 mg PO BID PRN muscle spasm 11/28/23 05/08/24 tramadol 50 mg tablet 50 mg PO TID PRN Pain 11/28/23 05/08/24 amlodipine 2.5 mg tablet 5 mg PO DAILY 05/08/24 05/08/24 Previous Rx's ?Medication ?Instructions ?Recorded albuterol sulfate 90 mcg/actuation 2 puff inhalation Q4-6H PRN 06/22/24 aerosol inhaler shortness of breath or wheezing #6.7 grams prednisone 20 mg tablet 40 mg (2 x 20 mg) PO DAILY #8 tabs 06/22/24 Allergies Allergy/AdvReac Type Severity Reaction Status Date / Time No Known Allergies Allergy Verified 06/22/24 13:58 Review of Systems Review of Systems: Yes all other systems are reviewed and are negative Constitutional: Constitutional: Denies fatigue and Denies fever(s) Cardiovascular: Cardiovascular: Denies chest pain and Denies dyspnea Respiratory: Respiratory: Reports cough, Denies dyspnea and Reports wheezing Endocrine: Endocrine: Denies fatigue Allergic/Immunologic: Allergic/Immunologic: Reports wheezing PMFSH Past Medical History Attestation statement: The following information was validated with the patient. Medical History (Updated 06/22/24 @ 21:32 by JERE Rosen) Arthritis Back pain Scoliosis Cough Habitual snoring Bronchitis Asthma Chest pain Nocturia GERD (gastroesophageal reflux disease) HTN (hypertension) Surgical History Hx of hernia repair Hx of release of tendon Hx of bilateral inguinal hernia repair Social History Social History Are you a primary floor care technician to a significant other at home: No Do you presently have visiting nurse or other home services: No Alcohol intake: current Alcohol intake frequency: 0-2 drinks per day Patient Tobacco Use Status: Never used Tobacco Advance Directives: No Advance Directives Information Provided: No Physical Exam ED Vital Signs: Vital Signs - 24 hr 06/22/24 13:56 06/22/24 19:52 Temperature 98.5 F 97.6 F Pulse Rate 80 73 Respiratory Rate 20 16 Blood Pressure 124/72 140/84 H Pulse Oximetry 96 98 Oxygen Delivery Method Room Air Room Air BMI result Body Mass Index 32.6 Const Other: Alert Orientation/consciousness: patient oriented x3 Resp Other: Nonlabored respirations, lungs clear to auscultation no wheezing Cardio Other: Normal peripheral perfusion Skin Other: Warm dry no rash Neuro General: patient oriented x3, no focal motor deficits and CN's II-XI intact bilaterally Psych Other: Hostile belligerent Course Course Course Narrative: RME, this is a rapid medical exam performed by Ramos Santillan please refer to primary provider for complete H&P- 59 old male presents for evaluation of coughing. He reports coughing for the last 2 days. He reports his cough was productive of yellow sputum. He is well-appearing. Plan for viral swabs and chest x-ray Medications Administered Discontinued Medications Generic Name Dose Route Start Last Admin Trade Name Freq PRN Reason Stop Dose Admin Ketorolac Tromethamine 15 mg 06/22/24 20:14 06/22/24 20:34 Ketorolac Tromethamine 15 Mg/Ml Vial IM 06/22/24 20:15 15 mg ONCE ONE Administration Prednisone 40 mg 06/22/24 20:14 06/22/24 20:35 Prednisone 20 Mg Tablet PO 06/22/24 20:15 40 mg ONCE ONE Administration Medical Decision Making Medical Decision Making [facility] Narrative: 59-year-old male with a history of hypertension and asthma presents with cough and cold symptoms x2 days. Denies fever chest pain or shortness of breath. Patient states he has been using his inhaler, but his symptoms are persisting. Problem: Asthma History: Per patient I have considered the following differential diagnoses: Asthma exacerbation, bronchitis, pneumonia, viral syndrome Plan: Patient here with very mild symptoms, we will place on steroid. He also needs a refill on his inhaler. Viral Panel and chest x-ray Obtained from triage I have independently reviewed the following tests: Viral panel negative Chest x-ray: XR/XR chest 2V IMPRESSION: Hypoexpanded lungs without acute process. Electronically signed by: Moisés Villatoro MD 06/22/2024 02:28 PM [facility] Dictated By: Moisés Villatoro MD Lab Data Labs: Lab Results 06/22/24 Range/Units 15:40 Influenza Type A (PCR) NEGATIVE (Negative) Influenza Type B (PCR) NEGATIVE (Negative) RSV RNA Qual (PCR) NEGATIVE (Negative) SARS-CoV-2 RNA (RT-PCR) NEGATIVE (Negative) Discharge Plan Discharge Clinical Impression: Acute viral syndrome, Asthma Patient Disposition: Home, Self-Care Instructions: Asthma (ED), Viral Syndrome (ED) Additional Instructions: Your asthma is being triggered by a respiratory virus. The chest x-ray was negative for pneumonia, and are viral panel was negative. There are numerous respiratory viruses circulating within the community. Use your inhalers as needed at home, take the prednisone as directed, you do not require any additional medication until tomorrow morning. Follow up with your primary care provider as needed. Prescriptions: New albuterol sulfate 90 mcg/actuation HFA aerosol inhaler 2 puff inhalation Q4-6H PRN (Reason: shortness of breath or wheezing) Qty: 6. 7 0RF prednisone 20 mg tablet 40 mg PO DAILY Qty: 8 0RF No Action betamethasone valerate 0.1 % ointment 1 appl topical DAILY tramadol 50 mg tablet 50 mg PO TID PRN (Reason: Pain) albuterol sulfate 90 mcg/actuation HFA aerosol inhaler 2 inh inhalation Q6-8H PRN (Reason: Shortness Of Breath Or Wheezing) (DME) blood pressure test kit-large Kit See Rx Instructions .ROUTE DAILY Qty: 1 Rx Instructions: As directed cetirizine 10 mg tablet 10 mg PO DAILY tizanidine 2 mg tablet 2 mg PO BID PRN (Reason: muscle spasm) amlodipine 2.5 mg tablet 5 mg PO DAILY Interventions: ED Discharge Assessment Last Done: 06/22/24 21:29 Print Language: Arabic
[2024-06-22 16:27] LABS: Influenza A PCR NEGATIVE (Negative); Influenza B PCR NEGATIVE (Negative); Resp Syncy Virus RNA Qual PCR NEGATIVE (Negative); SARS COV2 PCR INHOUSE NEGATIVE (Negative)
[2024-06-22 19:52] VITALS: BP 140/84; PULSE 73; RESP 16; TEMP 36.4; O2SAT 98
[2024-06-22] MEDS: Ketorolac Tromethamine 15 MG/ML VIAL IM (20:34)
[2024-06-22] MEDS: predniSONE 20 MG TABLET 40 MG PO (20:35)
--- NOTE | 2024-06-22 21:28 | PC.NURSE ---
patient refuses to wait for discharge paper work said he's been here to long and wants to leave. Provider notified.
[2024-06-22 21:29] VITALS: BP 140/84; PULSE 73; RESP 16; TEMP 36.4; O2SAT 98
== END 2024-06-22 21:39 | disposition home or self-care (01) ==
PROVIDERS: Physician Assistant; Emergency Provider Emergency Medicine; PCP Family Medicine
DX: B34.9 Viral infection, unspecified (principal); J45.909 Unspecified asthma, uncomplicated; R05.9 Cough, unspecified; I10 Essential (primary) hypertension; K21.9 Gastro-esophageal reflux disease without esophagitis; Z79.899 Other long term (current) drug therapy; Z03.818 Encounter for observation for suspected exposure to other biological agents ruled out
CPT/HCPCS: 0241U; 71046; 96372; 99283; 99284; J1885

== ENCOUNTER → 2024-06-22 13:57 | Outpatient (BNV) | payer OTHER, SELFPAY | PROVIDERS: PCP Family Medicine; Visit Provider Radiology Diagnostic Radiology | DX: J98.4 Other disorders of lung (principal) | CPT/HCPCS: 71046 ==

== ENCOUNTER 2024-07-07 15:57 | Outpatient (REF) | payer OTHER, SELFPAY ==
--- NOTE | ~2024-07-07 | US_ITS ---
EXAMINATION: US RETROPERITONEAL LIMITED (RENAL ONLY) CLINICAL INFORMATION: Nocturia. COMPARISON: No prior ultrasound. Correlation made with CT abdomen pelvis without contrast 01/17/2024. TECHNIQUE: Real-time imaging of the kidneys. FINDINGS: RIGHT KIDNEY: 10.1 x 5.6 x 3.7 cm (SAG x AP x TRV). The kidney is normal in size, contour, and echogenicity. Renal cortical thickness is normal. No calculi or suspicious focal parenchymal lesions. No hydronephrosis. There is a mid pole 0.4 cm cyst with a tiny calcification along the posterior wall. This is benign. LEFT KIDNEY: 11.3 x 6.9 x 4.1 cm (SAG x AP x TRV). The kidney is normal in size, contour, and echogenicity. Renal cortical thickness is normal. No calculi or suspicious focal parenchymal lesions. No hydronephrosis. There is a simple lower pole exophytic cyst measuring 0.7 x 0.7 x 0.6 cm. US/US renal BI IMPRESSION: 1. Tiny bilateral renal cysts. Otherwise normal exam. Electronically signed by: Alexandro Blandon MD 07/08/2024 01:27 PM [facility]
== END 2024-07-07 15:58 | disposition home or self-care (01) ==
LOC: HO.US 15:57
PROVIDERS: PCP Family Medicine; Visit Provider Nurse Practitioner Family
DX: R35.1 Nocturia (principal)
CPT/HCPCS: 76775

== ENCOUNTER → 2024-07-07 15:59 | Outpatient (BNV) | payer OTHER, SELFPAY | PROVIDERS: PCP Family Medicine; Visit Provider Radiology Diagnostic Radiology | DX: R35.1 Nocturia (principal) | CPT/HCPCS: 76775 ==

== ENCOUNTER 2024-07-18 10:32 | Outpatient (REF) | payer OTHER, SELFPAY ==
--- OUTSIDE RECORDS SUMMARY | 2024-07-18 10:34 | XMS_ITS | Encounter Summary ---
Author Organization [employer] Address [address] [facility] [address] [place] [address] Care Team Providers Care News Cameraman Name Role Phone Marleen Jovel MD Primary Care Provider [phone] Encounter Details Date Type Department Care Team (Late st Contact Info) Description 06/22/2024 Orders Only [facility] External Provider, [facility] Social History Tobacco Use Types Packs/Day Years Used Date Smoking Tobacco: Never Passive Smoke Exposure: Never Smokeless Tobacco: Never Alcohol Use Standard Drinks/Week Comments Yes 0 (1 standard drink = 0.6 oz pur e alcohol) Depression Answer Date Recorded Patient Health Questionnaire-9 Score 0 10/28/2023 Patient Health Questionnaire-9 Score 0 10/28/2023 Last PHQ-9: Questionnaire Data Not on file 0 10/28/2023 Housing Stability Answer Date Recorded What is your housing situation today? I have machelle marte 10/28/[address] you li ve. Do you have problems with any of the following? None of the above 10/28/2023 Food Insecurity Answer Date Recorded Within the past 12 months, y ou worried that your food would run out before you got money to buy more: Never True 08/09/2023 Within the past 12 months,th e food you bought just didn't last and you didn't have enough money to get more: Never True Transportation Answer Date Recorded In the past 12 months, has l ack of transportation kept you from medical appts, meetings, work or from getting things needed for daily living? No 08/09/2023 Utilities Answer Date Recorded In the past 12 months, has t he electric, gas, oil or water company threatened to shut off services in your home? No 08/09/2023 Depression Answer Date Recorded Patient Health Questionnaire-2 Score 0 10/28/2023 Education Answer Date Recorded What is the highest level of school you have completed or the highest degree you have received? High school graduate 10/28/2023 Sex and Gender Information Value Date Recorded Sex Assigned at Male 05/02/2023 10:09 AM EST Legal Sex Male 10:05 AM EST Gender Identity Male 05/02/2023 10:09 AM EST Sexual Orientation Straight 05/02/2023 10 :09 AM EST documented as of this encounter Plan of Treatment Not on file documented as of this encounter Procedures Procedure Name Priority Date/Time Associated Diagnosis Comments SARS COV2/INFLUENZA A/B AND RSV RNA QL NAAT Routine 06/22/2024 3:40 PM EST XR CHEST 2 VIEWS Routine 06/22/2024 1:57 PM EST documented in this encounter Results * SARS-CoV-2 RNA, Influenza A/B, and RSV RNA, Ql NAAT (06/22/2024 3:40 PM EST) Influenza A PCR NEGATIVE Negative [facility] Influenza B PCR NEGATIVE Negative [facility] Resp Syncy Virus RNA Qual PCR NEGATIVE Negative [facility] SARS COV2 PCR NEGATIVE Negative [facility] Comment:All test results mus t be correlated with clinical findings.Negative results do not preclude SARS-CoV2, influenza Avirus, influenza B virus and/or RSV infectionand should not be used as the sole basis for treatment orother patient management decisions. Negative results must becombined with clinical observations, patient history, andepidemiological information.This test has not been evaluated for monitoring treatment ofinfection.This test has been authorized by the FDA under an EmergencyUse Authorization (EUA) for use by authorized laboratories.Testing performed on the [employer] GeneXpert utilizingreal-time RT-PCR.All SARS CoV2 and positive influenza A/B results arereported to [facility]. 06/22/2024 3:40 PM EST 06/22/2024 3:43 PM EST us Generic External Data Provider LAB MICROBIOLOGY - GENERAL ORDERABLES Final Result [facility] [address] [place] [address] [place] [phone] * XR Chest 2 Views (06/22/2024 1:57 PM EST) Anatomical Region Laterality Modality Chest Radiographic Vernell ging 06/22/2024 1:57 PM EST Narrative 06/22/2024 2:31 PM EST ? [facility] ?[address] ?[place] [address] ?XRay Report ? Signed ? Patient: Carson Ortiz,Howard ?MR#: [id number] ?? [id number] ? : 1965 ?Acct:[id number] ? Age/Sex: 59 / M ?ADM Date: 06/22/24 ? Loc: HO.ED ? Attending Dr: ? Ordering Physician: Misbah Santillan ?? Date of Service: 06/22/24 ?? Procedure(s): XR chest 2V ?? Accession Number(s): [id number] ? cc: Misbah Santillan; Marleen Jovel MD ? EXAMINATION: ?? XR CHEST ? CLINICAL INFORMATION: ?? Chest pain and coughing with mucus production ? COMPARISON: ?? None available. ? TECHNIQUE: ?? 2 views of the chest were obtained. ? FINDINGS: ?? The lungs are hypoexpanded but clear. The heart size and pulmonary ?? vascularity is normal. No gross bony abnormality seen. ? XR/XR chest 2V ?? IMPRESSION: ?? Hypoexpanded lungs without acute process. ? Electronically signed by: ??Moisés Villatoro MD ??06/22/2024 02:28 PM EST RP ? Dictated By: ?Shauna,Moisés S MD ? Signed By: ?<Electronically signed by Moisés S Shauna, MD in OV> ?06/22/24 1428 ? DD/ 1357 ? TD/TT: 06/22/24 1407 ? Trades Helper: MSM ? Procedure Note Farzana Walls - 06/22/[address] [address] XRay Report Signed Patient: Howard JuniorMR#: [id number] : 1965Acct:[id number] Age/Sex: 59 / MADM Date: 06/22/24 Loc: HO.ED Attending Dr: Ordering Physician: Misbah Santillan Date of Service: 06/22/24 Procedure(s): XR chest 2V Accession Number(s): [id number] cc: Misbah Santillan; Marleen Jovel MD EXAMINATION: XR CHEST CLINICAL INFORMATION: Chest pain and coughing with mucus production COMPARISON: None available. TECHNIQUE: 2 views of the chest were obtained. FINDINGS: The lungs are hypoexpanded but clear. The heart size and pulmonary vascularity is normal. No gross bony abnormality seen. XR/XR chest 2V IMPRESSION: Hypoexpanded lungs without acute process. Electronically signed by: Moisés Villatoro MD 06/22/2024 02:28 PM [facility] Dictated By: Moisés Villatoro MD Signed By: <Electronically signed by Moisés Villatoro MD in OV> 06/22/24 1428 DD/ 1357 TD/TT: 06/22/24 1407 Trades Helper: NICANOR [facility] External Provider IMG XR PROCEDURES Final Result documented in this encounter Visit Diagnoses Not on filedocumented in this encounter Additional Health Concerns Assessment Noted Time PHQ-9 Depression Total Score: 0 10/28/19 24 9:20 AM EDT documented as of this encounter Care Teams News Cameraman Relationship Specialty Start Date End Date Marleen Jovel MD [address] [place] [id number] PCP - General Family Medicine 10/28/23 documented as of this encounter
--- OUTSIDE RECORDS SUMMARY | 2024-07-18 10:34 | XMS_ITS | Clinical Summary ---
[facility] Organization [facility] Address [address] [place] [address] Care Team Providers Care Book Critic Name Role Phone Unavailable Primary Care Provider Unavailabl e Social History Tobacco Use Types Packs/Day Years Used Date Smoking Tobacco: Never Assessed Sex and Gender Information Value Date Recorded Sex Assigned at Not on file Gender Identity Not on file Sexual Orientation Not on file Plan of Treatment Health Maintenance Due Date Last Done Comments DTaP,Tdap,and Td Vaccines (1 - Tdap) 1983 Zoster Vaccines (1 of 2) 2014 Cholesterol Screening (Lipid Panel) 05/27/2022 Colorectal Cancer Screening: Colonoscopy 05/27/2022 Depression Screening 05/27/2022 HIV Screening 05/27/2022 Hepatitis C Screening 05/27/2022 Social Influencers of Health Screening 05/27/2022 COVID-19 Vaccine ( - 2023-2 5 season) 2024 Influenza Vaccine (#1) 2024 RSV Immunization Patients 60 + Years Old (1 - 1-dose 75+ series) 2039 HIB Vaccines Aged Out No longer eligi ble based on patient's age to complete this topic HPV Vaccines Aged Out No longer eligi ble based on patient's age to complete this topic Hepatitis A Vaccines Aged Out No long er eligible based on patient's age to complete this topic Hepatitis B Vaccines Aged Out No long er eligible based on patient's age to complete this topic IPV Vaccines Aged Out No longer eligi ble based on patient's age to complete this topic MMR Vaccines Aged Out No longer eligi ble based on patient's age to complete this topic Meningococcal ACWY Vaccine Aged Out N o longer eligible based on patient's age to complete this topic Pneumococcal Vaccine: Pediat rics (0 to 5 Years) and At-Risk Patients (6 to 64 Years) Aged Out No longer eligible b ased on patient's age to complete this topic RSV Immunization Patients Un ramandeep 20 months Aged Out No longer eligible b ased on patient's age to complete this topic Varicella Vaccines Aged Out No longer eligible based on patient's age to complete this topic
--- OUTSIDE RECORDS SUMMARY | 2024-07-18 10:34 | XMS_ITS | Encounter Summary ---
Author Organization [employer] Address [address] [facility] 7[address] [place] [address] Care Team Providers Care Congressional Aide Name Role Phone Marleen Jovel MD Primary Care Provider [phone] Encounter Details Date Type Department Care Team (Late st Contact Info) Description 06/19/2024 Orders Only [facility] External Provider, [facility] Social History Tobacco Use Types Packs/Day [...] Procedure Name Priority Date/Time Associated Diagnosis Comments STRESS TEST WITH MYOCARDIAL PERFUSION Routine 06/19/2024 10:15 AM EST documented in this encounter Results * Stress test with myocardial perfusion (06/19/2024 10:15 AM EST) 06/19/2024 10:1 5 AM EST Narrative [facility] - 06/23/2024 9:06 AM EST ? [facility] ?[address] ?[place] [address] ?Nuclear Medicine Report ? Signed ? Patient: Howard Junior ?MR#: [id number] ?? [id number] ? : 1965 ?Acct:[id number] ? Age/Sex: 59 / M ?ADM Date: 06/19/24 ? Loc: HO.CARD ? Attending Dr: Sherlyn LAROSE ? Ordering Physician: Sherlyn Duarte ?? Date of Service: 06/19/24 ?? Procedure(s): NM cardiolite stress test ?? Accession Number(s): [id number] ? cc: Sherlyn Duarte; Marleen Jovel MD ? Lexiscan Myocardial perfusion study ? Indication: ?? Abnormal EKG evaluate for myocardial ischemia ? Technique: ? The patient was brought in for a Lexiscan perfusion study on 06/19/2024 ?? and was injected 0.4 mg of Lexiscan intravenously. Within a minute of ?? this injection 30 mCi of sestamibi was given intravenously. Images were ?? obtained using the SPECT gamma camera interlaced with the gating ?? device. Images were obtained in supine position. ? Resting perfusion study was performed on 06/22/2024. Patient was ?? administered 30 mCi of sestamibi intravenously at rest. Images were ?? then obtained in supine position. ? Images obtained with and without CT attenuation. Total DLP 124 mGy-cm. ? Images were processed with the software and compared side to side in ?? short axis, horizontal long axis and vertical long axis views. ? Findings: ? The stress perfusion study showed ??nonattenuated images show minimal ?? thinning of the basal septum and lateral wall which are nonspecific. ?? Attenuated corrected images show overall normal uptake of radiotracer ?? in all segments of the LV myocardium. The gated study shows normal LV ?? systolic function with calculated LVEF of 65%. LV cavity is mildly ?? dilated in size. The gated study shows normal systolic ??wall thickening ?? and contraction of segments. ?? Resting study shows no change in perfusion pattern compared to stress ?? perfusion study on attenuated corrected images. Gating at rest reveals ?? normal systolic wall motion with ejection fraction at 70%. ? The findings are consistent with likely normal myocardial perfusion. ? NM/NM cardiolite stress test ?? Impression: ? 1. ??Myocardial perfusion imaging study shows normal myocardial perfusion ?? 2. ??Gated LVEF is 65% ?? 3. Transient ischemic dilatation not present ? Nondiagnostic changes on on EKG. ? Electronically signed by: ??Jorge Martin MD ??06/23/2024 09:02 AM EST RP ? Dictated By: ?Jorge Martin MD ? Signed By: ?<Electronically signed by Jorge Martin MD in OV> ?06/23/24 0902 ? DD/ 1015 ? TD/TT: 06/22/24 1445 ? Compressor Station Engineer Chief: ? Procedure Note Kavita, Farzana - 06/23/[address] [address] Nuclear Medicine Report Signed Patient: Howard Junior#: [id number] : 1965Acct:[id number] Age/Sex: 59 / MADM Date: 06/19/24 Loc: [facility] Attending Dr: Sherlyn Duarte MULTI MEDIA SPECIALIST-Marisela Ordering Physician: Sherlyn Duarte Date of Service: 06/19/24 Procedure(s): NM cardiolite stress test Accession Number(s): [id number] cc: Sherlyn Duarte; Marleen Jovel MD Lexiscan Myocardial perfusion study Indication: Abnormal EKG evaluate for myocardial ischemia Technique: The patient was brought in for a Lexiscan perfusion study on 06/19/2024 and was injected 0.4 mg of Lexiscan intravenously. Within a minute of this injection 30 mCi of sestamibi was given intravenously. Images were obtained using the SPECT gamma camera interlaced with the gating device. Images were obtained in supine position. Resting perfusion study was performed on 06/22/2024. Patient was administered 30 mCi of sestamibi intravenously at rest. Images were then obtained in supine position. Images obtained with and without CT attenuation. Total DLP 124 mGy-cm. Images were processed with the software and compared side to side in short axis, horizontal long axis and vertical long axis views. Findings: The stress perfusion study showed nonattenuated images show minimal thinning of the basal septum and lateral wall which are nonspecific. Attenuated corrected images show overall normal uptake of radiotracer in all segments of the LV myocardium. The gated study shows normal LV systolic function with calculated LVEF of 65%. LV cavity is mildly dilated in size. The gated study shows normal systolic wall thickening and contraction of segments. Resting study shows no change in perfusion pattern compared to stress perfusion study on attenuated corrected images. Gating at rest reveals normal systolic wall motion with ejection fraction at 70%. The findings are consistent with likely normal myocardial perfusion. NM/NM cardiolite stress test Impression: 1. Myocardial perfusion imaging study shows normal myocardial perfusion 2. Gated LVEF is 65% 3. Transient ischemic dilatation not present Nondiagnostic changes on on EKG. Electronically signed by: Jorge Martin MD 06/23/2024 09:02 AM [facility] Dictated By: Jorge Martin MD Signed By: <Electronically signed by Jorge Martin MD in OV> 06/23/24 0902 DD/ 1015 TD/TT: 06/22/24 1445 Compressor Station Engineer Chief: [facility] External Provider CV STRE SS PROCEDURES Edited Result - Final [facility] [address] [place] [address] documented in this encounter Visit Diagnoses Not on filedocumented in this encounter Additional Health Concerns Assessment Noted Time PHQ-9 Depression Total Score: 0 10/28/19 9:20 AM EDT documented as of this encounter Care Teams Congressional Aide Relationship Specialty Start Date End Date Marleen Jovel MD [address] [place] [id number] PCP - General Family Medicine 10/28/23 documented as of this encounter
--- OUTSIDE RECORDS SUMMARY | 2024-07-18 10:34 | XMS_ITS | Encounter Summary ---
Author Organization [employer] Address [address] [facility] [address] [place] [address] Care Team Providers Care Electric Motor Repair Supervisor Name Role Phone Marleen Jovel MD Primary Care Provider [phone] Encounter Details Date Type Department Care Team (Late st Contact Info) Description 07/07/2024 Orders Only [facility] External Provider, [facility] Social History Tobacco Use Types Packs/Day [...] Procedure Name Priority Date/Time Associated Diagnosis Comments US RENAL BI Routine 07/07/2024 4:29 PM EST documented in this encounter Results * US RENAL BI (07/07/2024 4:29 PM EST) Anatomical Region Laterality Modality Abdomen Ultrasound 07/07/2024 4:29 PM EST Narrative 07/08/2024 1:30 PM EST ? [facility] ?[address] ?[place] [address] ? Ultrasound Report ? Signed ? Patient: Howard Junior ?MR#: [id number] ?? [id number] ? : 1965 ?Acct:[id number] ? Age/Sex: 59 / M ?ADM Date: 07/07/24 ? Loc: HO.US ? Attending Dr: Kaley MIGUEL ? Ordering Physician: Kaley Burgos ?? Date of Service: 07/07/24 ?? Procedure(s): US renal BI ?? Accession Number(s): [id number] ? cc: Kaley Burgos; Marleen Jovel MD ? EXAMINATION: ?? US RETROPERITONEAL LIMITED (RENAL ONLY) ? CLINICAL INFORMATION: ?? Nocturia. ? COMPARISON: ?? No prior ultrasound. ?? Correlation made with CT abdomen pelvis without contrast 01/17/2024. ? TECHNIQUE: ?? Real-time imaging of the kidneys. ? FINDINGS: ? RIGHT KIDNEY: 10.1 x 5.6 x 3.7 cm (SAG x AP x TRV). The kidney is ?? normal in size, contour, and echogenicity. Renal cortical thickness is ?? normal. No calculi or suspicious focal parenchymal lesions. No ?? hydronephrosis. There is a mid pole 0.4 cm cyst with a tiny ?? calcification along the posterior wall. This is benign. ? LEFT KIDNEY: 11.3 x 6.9 x 4.1 cm (SAG x AP x TRV). The kidney is normal ?? in size, contour, and echogenicity. Renal cortical thickness is normal. ?? No calculi or suspicious focal parenchymal lesions. No hydronephrosis. ?? There is a simple lower pole exophytic cyst measuring 0.7 x 0.7 x 0.6 ?? cm. ? US/US renal BI ?? IMPRESSION: ?? 1. Tiny bilateral renal cysts. Otherwise normal exam. ? Electronically signed by: ??Alexandro Blandon MD ??07/08/2024 01:27 PM EST RP ? Dictated By: ?Alexandro Blandon MD ? Signed By: ?<Electronically signed by Alexandro Blandon MD in OV> ?07/08/24 1327 ? DD/ 1629 ? TD/TT: 07/07/24 1642 ? Continuous Crusher Operator: ? Procedure Note Farzana Walls - 07/08/2024 [place] [address] Ultrasound Report Signed Patient: Howard JuniorMR#: [id number] : 1965Acct:[id number] Age/Sex: 59 / MADM Date: 07/07/24 Loc: HO.US Attending Dr: Kaley MIGUEL Ordering Physician: Kaley Burgos Date of Service: 07/07/24 Procedure(s): US renal BI Accession Number(s): [id number] cc: Kaley Burgos; Marleen Jovel MD EXAMINATION: US RETROPERITONEAL LIMITED (RENAL ONLY) CLINICAL INFORMATION: Nocturia. COMPARISON: No prior ultrasound. Correlation made with CT abdomen pelvis without contrast 01/17/2024. TECHNIQUE: Real-time imaging of the kidneys. FINDINGS: RIGHT KIDNEY: 10.1 x 5.6 x 3.7 cm (SAG x AP x TRV). The kidney is normal in size, contour, and echogenicity. Renal cortical thickness is normal. No calculi or suspicious focal parenchymal lesions. No hydronephrosis. There is a mid pole 0.4 cm cyst with a tiny calcification along the posterior wall. This is benign. LEFT KIDNEY: 11.3 x 6.9 x 4.1 cm (SAG x AP x TRV). The kidney is normal in size, contour, and echogenicity. Renal cortical thickness is normal. No calculi or suspicious focal parenchymal lesions. No hydronephrosis. There is a simple lower pole exophytic cyst measuring 0.7 x 0.7 x 0.6 cm. US/US renal BI IMPRESSION: 1. Tiny bilateral renal cysts. Otherwise normal exam. Electronically signed by: Alexandro Blandon MD 07/08/2024 01:27 PM [facility] Dictated By: Alexandro Blandon MD Signed By: <Electronically signed by Alexandro Blandon MD in OV> 07/08/24 1327 DD/ 1629 TD/TT: 07/07/24 1642 Continuous Crusher Operator: [facility] External Provider IMG US PROCEDURES Final Result documented in this encounter Visit Diagnoses Not on filedocumented in this encounter Additional Health Concerns Assessment Noted Time PHQ-9 Depression Total Score: 0 10/28/19 24 9:20 AM EDT documented as of this encounter Care Teams Electric Motor Repair Supervisor Relationship Specialty Start Date End Date Marleen Jovel MD [address] [place] [address] PCP - General Family Medicine 10/28/23 documented as of this encounter
--- OUTSIDE RECORDS SUMMARY | 2024-07-18 10:35 | XMS_ITS | Clinical Summary ---
Author Organization [employer] Address [address] [facility] [address] [place] [address] Care Team Providers Care Converting Supervisor Name Role Phone Marleen Jovel MD Primary Care Provider [phone] Allergies No known active allergies Medications albuterol 108 (90 Base) MCG/ACT inhaler Inhale 2 puffs every 4 (four) hours if needed for wheezing or shortness of breath. 18 g 2 4 10/28/19 25 Active tiZANidine (Zanaflex) 2 MG capsule Take 1 capsule (2 mg) by mouth every 8 (eight) hours if needed for muscle spasms. 90 capsule 1 4 Active cetirizine (ZyrTEC) 10 MG tablet Take 1 tablet (10 mg) by mouth Once per day. 90 tablet 1 4 Active Blood Pressure kit 1 Units Once per day. 1 kit 4 Active cholecalciferol (Vitamin D-3) 50 MCG (2000 UT) capsule Take 1 capsule (50 mcg) by mouth Once per day. 120 capsule 3 4 Active betamethasone valerate (Valisone) 0.1 % ointment Apply topically if needed in the morning and at bedtime (dryness). 45 g 4 Active fluticasone furoate (Arnuity Ellipta) 100 MCG/ACT inhaler Inhale 1 puff Once per day. Rinse mouth with water after use to reduce aftertaste and incidence of candidiasis. Do not swallow. 1 each 4 11/21/19 25 Active Ketotifen Fumarate 0.035 % solution Administer 1 drop into affected eye(s) 2 times daily. 10 mL 4 Active tamsulosin (Flomax) 0.4 MG 24 hr capsule Take 1 capsule (0.4 mg) by mouth Once per day. 30 capsule 2 4 Active amLODIPine (Norvasc) 5 MG tablet Take 1 tablet (5 mg) by mouth Once per day. 90 tablet 1 4 Active Active Problems Problem Noted Date Diagnosed Date Acute non intractable tension-type headache 01/2024 Abnormal EKG 05/01/2024 Assessment & Plan (05/01/2024 3:18 PM EST): Patient had gone to surgeon and for preop evaluation for hernia surgery, was found to have abnormalities in V1-V3, no prior ECG in system to compare, they wanted patient to be seen by cardiology, but I don't see a referral in the system. [place] [facility] [place] attach media from ECG done in surgeon office. Umbilical hernia without obstruction and without gangrene 11/14/2023 Assessment & Plan (11/19/2023 10:35 AM EDT): Patient with reducible umbilical hernia, send to gen surgery for repair Right lateral epicondylitis 11/14/2023 Assessment & Plan (11/19/2023 10:36 AM EDT): Recommended Lateral epicondylitis exercises, splint and also send for elbow x ray, patient requested referral to ortho. Postinflammatory hyperpigmentation 11/14/2023 Assessment & Plan (11/19/2023 10:37 AM EDT): Will send trial of high intensity steroids, could consider triluma (steroid, retinoid and hydroquinone) Nocturia 10/28/2023 Assessment & Plan (02/17/2024 3:46 PM EDT): Prescribing Flomax for Sx. Referral to Urology for further evaluation. Relevant Medication Tamsulosin (Flomax) 0.4 mg 24 hr capsule. History of right inguinal hernia repair 10/28/19 History of lumbar laminectomy 10/28/2023 Hematuria 10/28/2023 Acid reflux 10/28/2023 Assessment & Plan (10/28/2023 10:51 AM EDT): Prescribing Protonix for acid reflux symptoms. Relevant Medication Pantoprazole (Protonix) 20 MG EC Tablet Iliotibial band syndrome of left side 10/28/2023 SI (sacroiliac) joint dysfunction 10/28/2023 Piriformis syndrome of left side 10/28/2023 Assessment & Plan (10/28/2023 11:19 AM EDT): Discussed mediations and refills as needed. Tenderness in left hip, possible Piriformis Syndrome. Referring to Orthopaedic for further evaluation. Referring to physical therapy. Relevant Medication Tizanidine (Zanaflex) 2 MG Capsule Epigastric pain 12/18/2022 Bacterial sinusitis 12/18/2022 Essential hypertension 09/10/2022 Assessment & Plan (05/01/2024 3:22 PM EST): Will increase amlodipine to 5 mg, slightly elevated BP at home. Target < 140/90 mmHg, various home readings with elevated diastolic and systolic. Followup in 3months. Assessment & Plan (02/17/2024 3:44 PM EDT): Continue medications and monitoring at home. Bring written readings and machine at next visit. Constipation 09/10/2022 Class 1 obesity 09/10/2022 Asthma, mild intermittent 09/10/2022 Assessment & Plan (10/28/2023 11:12 AM EDT): Discussed medication refills as needed. Relevant medications Albuterol 180(90 base) MCG/ACT inhaler. Mometasone Furoate (Asmanex HFA) 00 MCG/ACT aerosol Low back pain, unspecified 08/06/2022 Assessment & Plan (11/19/2023 10:35 AM EDT): Patient with LBP, ddx ITB dysfunction and SI joint dysfunction, at this moment will proceed with pain management and recommended patient to please call PT which referred last visit and letter was sent to patient. Encounters Date Type Department Care Team Description 07/07/2024 Orders Only [facility] External Provider, [facility] 06/22/2024 Orders Only [facility] External Provider, [facility] 06/19/2024 Orders Only [facility] External Provider, [facility] 05/01/2024 3:15 PM EST Office Visit [facility] [address] [place] [address] Marleen Jovel MD Acute non intractable tension-type headache (Primary Dx); Abnormal EKG; Essential hypertension 05/01/2024 Travel 04/28/2024 Refill [facility] [address] [place] [address] Marleen Jovel MD 04/24/2024 Patient Outreach [facility] [address] [place] [address] Marleen Jovel MD Pre-visit Planning (Pre-visit planning - LVM, SDOH screening completed on 10/28/2023//) from Last 3 Months Immunizations Name Administration Dates Next Due Hep B, adult 12/18/2023,11/20/2023 Influenza Injectable Quadriv alant Preservative Free IIV4 MDCK 04/01/2018 Influenza, IIV3, injectable 05/01/2024,,04/05/2015 Family History Medical History Relation Name Comments Diabetes Father Heart disease Father Hyperlipidemia Father Hypertension Father Prostate cancer Father COPD Mother Diabetes Mother Gout Mother Heart disease Mother Hypertension Mother Relation Name Status Comments Father Mother Social History Tobacco Use Types Packs/Day Years [...] Orientation Straight 05/02/2023 10 :09 AM EST Last Filed Vital Signs Vital Sign Reading Time Taken Comments Blood Pressure 121/81 05/01/2024 2:39 PM EST Pulse 66 05/01/2024 2:39 PM EST Temperature 36.3 ??C (97.3 ??F) 05/01/2024 2:39 PM ES T Respiratory Rate 12 05/01/2024 2:39 PM EST Oxygen Saturation 96% 05/01/2024 2:39 PM EST Inhaled Oxygen Concentration - - Weight 93 kg (205 lb) 05/01/2024 2:39 PM EST Height 170 cm (5' 6.93 ) 05/01/2024 2:39 PM EST Body Mass Index 32.17 05/01/2024 2:39 PM EST Plan of Treatment Health Maintenance Due Date Last Done Comments CT Colonography 1965 Colonoscopy 1965 Colorectal Cancer Screening 1965 FIT DNA/Cologuard 1964 FIT 1965 FOBT 1965 Sigmoidoscopy 1965 Pneumococcal Vaccine: Pediatrics (0 to 5 Years) and At-Risk Patients (6 to 64 Years) (1 of 2 - PCV) 1970 Alcohol/Substance Use Screening 1976 DTaP/Tdap/Td Vaccines (1 - Tdap) 1983 Zoster Vaccines (1 of 2) 2014 COVID-19 Vaccine (3 - season) 2024 01/07/2021, 12/17/2020 RSV Patients and Patients Aged 60 years or older (1 - Risk 60-74 years 1-dose series) 2024 Hepatitis B Vaccines (3 of 3 - 19+ 3-dose series) 05/22/2024 12/18/2023, 11/20/2023 Depression Screening 10/27/2024 10/28/2023, 10/28/19 SDOH Screening 10/27/2024 10/28/2023 Tobacco Screening 05/01/2025 05/01/2024 Lipid Panel 10/27/2028 10/28/2023 HIV Screening Completed 10/28/2023 Hepatitis C Screening Completed 10/28/2023 Influenza Vaccine Completed 05/01/2024, , 06/01/2022, Additional history exists HIB Vaccines Aged Out No longer eligi [...] patient's age to complete this topic Meningococcal Vaccine Aged Out No marcel jennifer eligible based on patient's age to complete this topic RSV under 20 months Aged Out No longe r eligible based on patient's age to complete this topic Rotavirus Vaccines Aged Out No longer eligible based on patient's age to complete this topic Procedures Procedure Name Priority Date/Time Associated Diagnosis Comments US RENAL BI Routine 07/07/2024 4:29 PM EST SARS COV2/INFLUENZA A/B AND RSV RNA QL NAAT Routine 06/22/2024 3:40 PM EST XR CHEST 2 VIEWS Routine 06/22/2024 1:57 PM EST STRESS TEST WITH MYOCARDIAL PERFUSION Routine 06/19/2024 10:15 AM EST HEPATITIS C AB W/REFL TO HCV RNA, QN, PCR Routine 10/28/2023 10:49 AM EDT Encounter for health-related screening HIV 1/2 ANTIGEN/ANTIBODY, FOURTH GENERATION W/RFL Routine 10/28/2023 10:49 AM EDT Encounter for health-related screening LIPID PANEL, STANDARD Routine 10/28/2023 10:49 AM EDT Class 1 obesity with body mass index (BMI) of 32.0 to 32.9 in adult, unspecified obesity type, unspecified whether serious comorbidity present from Last 3 Months or Most Recently Relevant to Health Maintenance Results * US RENAL BI (07/07/2024 4:29 PM EST) Anatomical Region Laterality Modality Abdomen Ultrasound 07/07/2024 4:29 PM EST Narrative 07/08/2024 1:30 PM EST ? [facility] ?[address] ?[place] [address] ? Ultrasound Report ? Signed ? Patient: Alli Ortiz,Howard ?MR#: [id number] ?? [id number] ? : 1965 ?Acct:[id number] ? Age/Sex: 59 / M ?ADM Date: 07/07/24 ? Loc: HO.US ? Attending Dr: Kaley MIGUEL ? Ordering Physician: Kaley Burgos ?? Date of Service: 07/07/24 ?? Procedure(s): US renal BI ?? Accession Number(s): [id number] ? cc: Kaley Burgos; Marleen Jovel MD [...] DD/ 1629 ? TD/TT: 07/07/24 1642 ? Eviction Specialist: ? Procedure Note Dahlialetykongter, Image - 07/08/2024 [place] [address] Ultrasound Report Signed Patient: Howard JuniorMR#: [id number] : 1965Acct:[id number] Age/Sex: 59 / MADM Date: 07/07/24 Loc: HO.US Attending Dr: Kaley MIGUEL Ordering Physician: Kaley Burgos Date of Service: 07/07/24 Procedure(s): US renal BI Accession Number(s): [id number] cc: Kaley Burgos; Marleen Jovel MD EXAMINATION: [...] by: Alexandro Blandon MD 07/08/2024 01:27 PM EST Dictated By: Alexandro Blandon MD Signed By: <Electronically signed by Alexandro Blandon MD in OV> 07/08/24 1327 DD/ 1629 TD/TT: 07/07/24 1642 Eviction Specialist: [facility] External Provider IMG US PROCEDURES Final Result * SARS-CoV-2 RNA, Influenza A/B, and RSV RNA, Ql NAAT (06/22/2024 3:40 PM EST) Influenza A PCR NEGATIVE Negative [facility] Influenza B PCR NEGATIVE Negative [facility] Resp Syncy Virus RNA Qual PCR NEGATIVE Negative [facility] SARS COV2 PCR NEGATIVE Negative [facility] Comment:All test results mus t [...] use by authorized laboratories.Testing performed on the [employer] GeneXpert utilizingreal-time RT-PCR.All SARS CoV2 and positive influenza A/B results arereported to [facility]. 06/22/2024 3:40 PM EST 06/22/2024 3:43 PM EST us Generic External Data Provider LAB MICROBIOLOGY - GENERAL ORDERABLES Final Result [facility] [address] [place] [phone] * XR Chest 2 Views (06/22/2024 1:57 PM EST) Anatomical Region Laterality Modality Chest Radiographic Vernell ging 06/22/2024 1:57 PM EST Narrative 06/22/2024 2:31 PM EST ? [facility] ?[address] ?[place] [address] ?XRay Report ? Signed ? Patient: Howard Junior ?MR#: [id number] ?? [id number] ? : 1965 ?Acct:[id number] ? Age/Sex: 59 / M ?ADM Date: 06/22/24 ? Loc: HO.ED ? Attending Dr: ? Ordering Physician: Misbah Santillan ?? Date of Service: 06/22/24 ?? Procedure(s): XR chest 2V ?? Accession Number(s): [id number] ? cc: Misbah Santillan; Marleen Jovel MD [...] acute process. ? Electronically signed by: ??Moisés Shauna MD ??06/22/2024 02:28 PM EST RP ? Dictated By: ?Shauna,Moisés S MD ? Signed By: ?<Electronically signed by Moisés S Shauna, MD in OV> ?06/22/ 1428 ? DD/DT: 06/22/ 1357 ? TD/TT: 06/22/ 1407 ? Eviction Specialist: MSM ? Procedure Note Donximenainterpreter, Image - 06/22/[address] [address] XRay Report Signed Patient: Howard JuniorMR#: [id number] : 1965Acct:[id number] Age/Sex: 59 / MADM Date: 06/22/24 Loc: HO.ED Attending Dr: Ordering Physician: Misbah Santillan Date of Service: 06/22/24 Procedure(s): XR chest 2V Accession Number(s): [id number] cc: Misbah Santillan; Marleen Jovel MD EXAMINATION: XR CHEST CLINICAL INFORMATION: Chest pain and coughing with mucus production COMPARISON: None available. TECHNIQUE: 2 views of the chest were obtained. FINDINGS: The lungs are hypoexpanded but clear. The heart size and pulmonary vascularity is normal. No gross bony abnormality seen. XR/XR chest 2V IMPRESSION: Hypoexpanded lungs without acute process. Electronically signed by: Moissé Villatoro MD 06/22/2024 02:28 PM EST RP Dictated By: Moisés Villatoro MD Signed By: <Electronically signed by Moisés Villatoro MD in OV> 06/22/24 1428 DD/ 1357 TD/TT: 06/22/24 1407 Eviction Specialist: NICANOR [facility] External Provider IMG XR PROCEDURES Final Result * Stress test with myocardial perfusion (06/19/2024 10:15 AM EST) 06/19/2024 10:1 5 AM EST Narrative [facility] - 06/23/2024 9:06 AM EST ? [facility] ?[address] ?[place] [address] ?Nuclear Medicine Report ? Signed ? Patient: Carson Ortiz,Howard ?MR#: [id number] ?? [id number] ? : 1965 ?Acct:[id number] ? Age/Sex: 59 / M ?ADM Date: 12/27/24 ? Loc: HO.CARD ? Attending Dr: Sherlyn LAROSE ? Ordering Physician: Sherlyn Duarte ?? Date of Service: 06/19/24 ?? Procedure(s): NM cardiolite stress test ?? Accession Number(s): [id number] ? cc: Sherlyn Duarte; Marleen Jovel MD [...] DD/ 1015 ? TD/TT: 06/22/24 1445 ? Eviction Specialist: ? Procedure Note Donotletyinterpreter, Image - 06/23/[address] [address] Nuclear Medicine Report Signed Patient: Howard JuniorMR#: [id number] : 1965Acct:[id number] Age/Sex: 59 / MADM Date: 06/19/24 Loc: SEKOU Attending Dr: Sherlyn LAROSE Ordering Physician: Sherlyn Duarte Date of Service: 06/19/24 Procedure(s): NM cardiolite stress test Accession Number(s): [id number] cc: Sherlyn Duarte; Marleen Jovel MD [employer] [...] by: Jorge Martin MD 06/23/2024 09:02 AM EST Dictated By: Jorge Martin MD Signed By: <Electronically signed by Jorge Martin MD in OV> 06/23/24 0902 DD/ 1015 TD/TT: 06/22/24 1445 Eviction Specialist: [facility] External Provider CV STRE SS PROCEDURES Edited Result - Final Performing Organization Address [facility]/ZIP Co de Phone Number [facility] [address] [place] [phone] * Hepatitis C Antibody with Reflex to HCV, RNA, Quantitative, Real-Time PCR (10/28/2023 10:49 AM EDT) [facility] Hepatitis C Antibody Nonreactive Nonreactive [facility] Comment:Antibodies to HCV no t detected; does not exclude early acuteHCV infection. Blood Venous blood specimen / Unknown 10/28/2023 10:49 AM EDT 10/28/2023 2:07 PM EDT Marleen Jovel MD LAB BLOOD ORDERABLES Final Re sult Performing Organization Address [facility]/ZIP Co de Phone Number [facility] [address] [place] [phone] * HIV-1/2 Antigen and Antibodies, Fourth Generation, with Reflexes (10/28/2023 10:49 AM EDT) Pathologist [facility] HIV AB/AG Nonreactive Nonreactive [facility] Comment:HIV-1 p24 Ag and/or HIV-1/HIV-2 Ab not detected.A test result that is nonreactive does not exclude thepossibility of exposure to or infection with HIV-1 and/orHIV-2. Nonreactive results in this assay for individualswith prior exposure to HIV-1 and/or HIV-2 may be due toantigen and antibody levels that are below the limit ofdetection of this assay.The [employer] HIV Ag/Ab Combo assay result andsupplemental assay results should be interpreted inconjunction with the patient's clinical presentation,history and other laboratory results. If the results areinconsistent with clinical evidence, additional testing issuggested to confirm the result. Blood Venous blood specimen / Unknown 10/28/2023 10:49 AM EDT 10/28/2023 2:07 PM EDT us Marleen Jovel MD LAB BLOOD ORDERABLES Final Re sult [facility] [address] [place] [phone] * (ABNORMAL) Lipid Panel, Standard (10/28/2023 10:49 AM EDT) Triglycerides 62 <150 mg/dL [facility] Comment:Desirable Triglyceri de: less than 150 mg/dLBorderline High Triglyceride 150-199 mg/dLHigh Triglyceride: 200-499 mg/dLVery High Triglyceride: greater than or equal to 5OO mg/dL Cholesterol 174 <200 mg/dL [facility] Comment:Desirable Cholestero l: less than 200 mg/dLBorderline High Cholesterol: 200-239 mg/dLHigh Cholesterol: greater than 239 mg/dL LDL Cholesterol Calculated 107(H) <100 mg/dL [facility] Comment:Desirable LDL: less than 100 mg/dLNear Optimal/Above Optimal LDL: 110- 129 mg/dLBorderline High LDL: 130-159 mg/dLHigh LDL: 160-189 mg/dLVery High LDL: greater than or equal to 190 mg/dL HDL Cholesterol 55 >40 mg/dL [facility] Comment:Desirable HDL: great er than 40 mg/dL Note: This HDL assay may give artificially low results in patients with liver disease. Blood Venous blood specimen / Unknown 10/28/2023 10:49 AM EDT 10/28/2023 2:07 PM EDT us Marleen Jovel MD LAB BLOOD ORDERABLES Final Re sult [facility] [address] [place] [address] [phone] from Last 3 Months or Most Recently Relevant to Health Maintenance Insurance [facility] Care Teams Converting Supervisor Relationship Specialty Start Date End Date Marleen Jovel MD [address] [place] [address] PCP - General Family Medicine 10/28/23
[2024-07-18 12:25] LABS: PSA,Total (Free>4and<10) 4.06 ng/mL (0.00-4.00)
[2024-07-20 11:53] LABS: Free Prostate Spec Ag 0.7 ng/mL; Percent Free Prostate Spec Ag 17 % (calc) (>25); Prostate Specific Ag Total 4.1 ng/mL (< OR = 4.0)
== END 2024-07-18 10:33 | disposition home or self-care (01) ==
LOC: HO.LAB 10:32
PROVIDERS: PCP Family Medicine; Visit Provider Nurse Practitioner Family
DX: R97.20 Elevated prostate specific antigen [PSA] (principal)
CPT/HCPCS: 36415; 84153; 84154

== ENCOUNTER 2024-07-20 14:44 | Outpatient (REF) | payer OTHER, SELFPAY ==
--- NOTE | ~2024-07-20 | US_ITS ---
CLINICAL HISTORY: NOCTURIA US Urinary Bladder Comparison: None Findings: The urinary bladder is unremarkable. Prevoid volume: 230 mLPostvoid volume: 35 mL Ureteral jets are visualized bilaterally. IMPRESSION: Unremarkable urinary bladder This document has been electronically signed by: Vanita Graves MD on 07/22/2024 15:24:22
--- OUTSIDE RECORDS SUMMARY | 2024-07-20 19:06 | XMS_ITS | Encounter Summary ---
Author Organization [employer] Address [address] [facility] [address]t [place] [address] Care Team Providers Care Supervisor Steno Pool Name Role Phone Marleen Jovel MD Primary Care Provider [phone] Encounter Details Date Type Department Care Team (Late st Contact Info) Description 07/18/2024 Orders Only GENERIC EXTERNAL DATA DEPARTMENT Provider, Generic External Data Social History Tobacco Use Types Packs/Day Years [...] Procedure Name Priority Date/Time Associated Diagnosis Comments PSA, FREE AND TOTAL Routine 07/18/2024 1 2:25 PM EST PSA, TOTAL WITH REFLEX TO PSA, FREE Routine 07/18/2024 10:47 AM EST documented in this encounter Results * (ABNORMAL) PSA, Free and Total (07/18/2024 12:25 PM EST) PSA, Total 4.1(A) < OR = 4.0 ng/mL [facility] PSA % Free 17(A) >25 % (calc) [facility] Comment: PSA(ng/mL) ?Free PSA(%) ? Estimated(x) Probability ? of Cancer(as%)0-2.5 ?(*) ? Approx. 12.6-4.0(1) ? 0-27(2) ? 24(3)4.1-10(4) ?0-10 ?56 ? 11-15 ? 28 ? 16-20 ? 20 ? 21-25 ? 16 ? >or =26 ? 8>10(+) ? N/A ?>50References:(1)Nathalie.:Urology 60: 469-474 (2002) ? (2)Nathalie.:J.Urol 168: 922-925 (2002) ?Free PSA(%) ?? Sensitivity(%) ??Specificity(%) ?< or = 25 ?85 ?19 ?< or = 30 ?93 ? 9 ? (3)Bonifacio et al.:ZAYDA 277: 5965-2007 (1996) ? (4)Bonifacio et al.:ZAYDA 279: 7627-7336 (1997)(x)These estimates vary with age, ethnicity, family ?? history and GAY results.(*)The diagnostic usefulness of % Free PSA has not been ?? established in patients with total PSA below 2.6 ng/mL(+)In men with PSA above 10 ng/mL, prostate cancer risk is ?? determined by total PSA alone.The Total PSA value from this assay system isstandardized against the equimolar PSA standard.The test result will be approximately 20% higherwhen compared to the WHO-standardized Total PSA(Siemens assay). Comparison of serial PSA resultsshould be interpreted with this fact in mind.PSA was performed using the [employer]ora CoulterImmunoassay method. Values obtained from differentassay methods cannot be used interchangeably. PSAlevels, regardless of value, should not be interpretedas absolute evidence of the presence or absence ofdisease.THIS TEST WAS PERFORMED AT:[facility] [address] ??[phone] SANCHEZ MD PSA, Free 0.7 ng/mL [facility] 07/18/2024 12:2 5 PM EST 07/18/2024 12:25 PM EST Generic External Data Provider LAB BLOOD ORDERAB LES Final Result Performing Organization Address [facility]/ZIP Co de Phone Number [facility] [address] [place] [phone] * (ABNORMAL) PSA, Total With Reflex to PSA, Free (07/18/2024 10:47 AM EST) PSA,Total (Free>4and<10) 4.06(H) 0.00 - 4.00 ng/mL [facility] Comment:PSA methodology: Stas Jackson i ChemiluminescentMicroparticle Immunoassay (CMIA) 07/18/2024 10:4 7 AM EST 07/18/2024 10:47 AM EST Generic External Data Provider LAB BLOOD ORDERAB LES Final Result Performing Organization Address [facility]/ZIP Co de Phone Number [facility] [address] [place] [phone] documented in this encounter Visit Diagnoses Not on filedocumented in this encounter Additional Health Concerns Assessment Noted Time PHQ-9 Depression Total Score: 0 10/28/19 24 9:20 AM EDT documented as of this encounter Care Teams Supervisor Steno Pool Relationship Specialty Start Date End Date Marleen Jovel MD [address] [place] [phone] PCP - General Family Medicine 10/28/23 documented as of this encounter
--- OUTSIDE RECORDS SUMMARY | 2024-07-20 19:06 | XMS_ITS | Encounter Summary ---
Author Organization [employer] Address [address] [facility] 7t [place] [address] Care Team Providers Care Fish And Wildlife Warden Name Role Phone Marleen Jovel MD Primary Care Provider Encounter Details Date Type Department Care Team (Late st Contact Info) Description 07/07/2024 Orders Only [facility] External Provider, [facility] Social History Tobacco Use Types Packs/Day [...] EST Narrative 07/08/2024 1:30 PM EST ? [facility] ?[address] ?[place] [address] ? Ultrasound Report ? Signed ? Patient: Howard Junior ?MR#: [id number] ?? [id number] ? : 1965 ?Acct:[id number] ? Age/Sex: 59 / M ?ADM Date: 07/07/24 ? Loc: HO.US ? Attending Dr: Kaley MIGUEL ? Ordering Physician: Kaley Burgos ?? Date of Service: 07/07/24 ?? Procedure(s): US renal BI ?? Accession Number(s): [id number] ? cc: Kaley Burgos; Marleen Jovel MD [...] DD/ 1629 ? TD/TT: 07/07/24 1642 ? Production Lead: ? Procedure Note Farzana Walls - 07/08/2024 [place] [address] Ultrasound Report Signed Patient: Howard JuniorMR#: [id number] : 1965Acct:[id number] Age/Sex: 59 / MADM Date: 07/07/24 Loc: HO.US Attending Dr: Kaley MIGUEL Ordering Physician: Kaley Burgos Date of Service: 07/07/24 Procedure(s): US renal BI Accession Number(s): [id number] cc: Kaley Burgos; Marleen Jovel MD EXAMINATION: [...] by: Alexandro Blandon MD 07/08/2024 01:27 PM [facility] Dictated By: Alexandro Blandon MD Signed By: <Electronically signed by Alexandro Blandon MD in OV> 07/08/24 1327 DD/ 1629 TD/TT: 07/07/24 1642 Production Lead: [facility] External Provider IMG US PROCEDURES Final Result documented in this encounter Visit Diagnoses Not on filedocumented in this encounter Additional Health Concerns Assessment Noted Time PHQ-9 Depression Total Score: 0 10/28/19 24 9:20 AM EDT documented as of this encounter Care Teams Fish And Wildlife Warden Relationship Specialty Start Date End Date Marleen Jovel MD [address] [place] [address] PCP - General Family Medicine 10/28/23 documented as of this encounter
--- OUTSIDE RECORDS SUMMARY | 2024-07-20 19:06 | XMS_ITS | Clinical Summary ---
[facility] Address [address] [place] [address] Care Team Providers Care Merchandising Intern Name Role Phone Unavailable Primary Care Provider [...]
--- OUTSIDE RECORDS SUMMARY | 2024-07-20 19:06 | XMS_ITS | Encounter Summary ---
Author Organization [employer] Address [address] [facility] 7t [place] [address] Care Team Providers Care Electric Meter Installer Name Role Phone Marleen Jovel MD Primary Care Provider [phone] Encounter Details Date Type Department Care Team (Late st Contact Info) Description 06/19/2024 Orders Only [facility] External Provider, [facility] Social History Tobacco Use Types Packs/Day Years [...] EST) 06/19/2024 10:1 5 AM EST Narrative [facility] - 06/23/2024 9:06 AM EST ? [facility] ?[address] ?[place] [address] ?Nuclear Medicine Report ? Signed ? Patient: Howard Junior ?MR#: [id number] ?? [id number] ? : 1965 ?Acct:[id number] ? Age/Sex: 59 / M ?ADM Date: 06/19/24 ? Loc: HO.CARD ? Attending Dr: Sherlyn LAROSE ? Ordering Physician: Sherlyn Duarte ?? Date of Service: 06/19/24 ?? Procedure(s): NM cardiolite stress test ?? Accession Number(s): [id number] ? cc: Sherlyn Duarte; Marleen Jovel MD [...] DD/ 1015 ? TD/TT: 06/22/24 1445 ? Ammonia Box Tender: ? Procedure Note Kavita, Farzana - 06/23/[address] [address] Nuclear Medicine Report Signed Patient: Howard Junior#: [id number] : 1965Acct:[id number] Age/Sex: 59 / MADM Date: 06/19/24 Loc: SEKOU Attending Dr: Sherlyn Duarte DIETARY AIDE TEACHER-Marisela Ordering Physician: Sherlyn Duarte Date of Service: 06/19/24 Procedure(s): NM cardiolite stress test Accession Number(s): [id number] cc: Sherlyn Duarte; Marleen Jovel MD Lexiscan [...] by: Jorge Martin MD 06/23/2024 09:02 AM [facility] [place] Dictated By: Jorge Martin MD Signed By: <Electronically signed by Jorge Martin MD in OV> 06/23/24 0902 DD/ 1015 TD/TT: 06/22/24 1445 Ammonia Box Tender: [facility] External Provider CV STRE SS PROCEDURES Edited Result - Final [facility] [address] [place] [address] documented in this encounter Visit Diagnoses Not on filedocumented in this encounter Additional Health Concerns Assessment Noted Time PHQ-9 Depression Total Score: 0 10/28/19 9:20 AM EDT documented as of this encounter Care Teams Electric Meter Installer Relationship Specialty Start Date End Date Marleen Jovel MD [address] [place] [phone] PCP - General Family Medicine 10/28/23 documented as of this encounter
--- OUTSIDE RECORDS SUMMARY | 2024-07-20 19:06 | XMS_ITS | Encounter Summary ---
Author Organization [employer] Address [address] [facility] 7t [place] [address] Care Team Providers Care Database Security Expert Name Role Phone Marleen Jovel MD Primary Care Provider [phone] Encounter Details Date Type Department Care Team (Late st Contact Info) Description 06/22/2024 Orders Only [facility] External Provider, [facility] Social History Tobacco Use Types Packs/Day [...] PM EST) Influenza A PCR NEGATIVE Negative [facility] Influenza B PCR NEGATIVE Negative [facility] Resp Syncy Virus RNA Qual PCR NEGATIVE Negative [facility] SARS COV2 PCR NEGATIVE Negative [facility] Comment:All test results mus t [...] use by authorized laboratories.Testing performed on the [employer] GeneXpert utilizingreal-time RT-PCR.All SARS CoV2 and positive influenza A/B results arereported to [facility]. 06/22/2024 3:40 PM EST 06/22/2024 3:43 PM EST us Generic External Data Provider LAB MICROBIOLOGY - GENERAL ORDERABLES Final Result [facility] [address] [place] [address] [place] [phone] * XR Chest 2 Views (06/22/2024 1:57 PM EST) Anatomical Region Laterality Modality Chest Radiographic Vernell ging 06/22/2024 1:57 PM EST Narrative 06/22/2024 2:31 PM EST ? [facility] ?[address] ?[place] [address] ?XRay Report ? Signed ? Patient: Carson Ortiz,Howard ?MR#: [id number] ?? [id number] ? : 1965 ?Acct:[id number] ? Age/Sex: 59 / M ?ADM Date: 06/22/24 ? Loc: HO.ED ? Attending Dr: ? Ordering Physician: Misbah Santillan ?? Date of Service: 06/22/24 ?? Procedure(s): XR chest 2V ?? Accession Number(s): [id number] ? cc: Misbah Santillan; Marleen Jovel MD [...] DD/ 1357 ? TD/TT: 06/22/24 1407 ? Pin Ticket Machine Operator: MSM ? Procedure Note Farzana Walls - 06/22/[address] [address] XRay Report Signed Patient: Howard JuniorMR#: [id number] : 1965Acct:[id number] Age/Sex: 59 / MADM Date: 06/22/24 Loc: HO.ED Attending Dr: Ordering Physician: Misbah Santillan Date of Service: 06/22/24 Procedure(s): XR chest 2V Accession Number(s): [id number] cc: Misbah Santillan; Marleen Jovel MD EXAMINATION: [...] by: Moisés Villatoro MD 06/22/2024 02:28 PM [facility] Dictated By: Moisés Villatoro MD Signed By: <Electronically signed by Moisés Villatoro MD in OV> 06/22/24 1428 DD/ 1357 TD/TT: 06/22/24 1407 Pin Ticket Machine Operator: NICANOR [facility] External Provider IMG XR PROCEDURES Final Result documented in this encounter Visit Diagnoses Not on filedocumented in this encounter Additional Health Concerns Assessment Noted Time PHQ-9 Depression Total Score: 0 10/28/19 24 9:20 AM EDT documented as of this encounter Care Teams Database Security Expert Relationship Specialty Start Date End Date Marleen Jovel MD [address] [place] [phone] PCP - General Family Medicine 10/28/23 documented as of this encounter
--- OUTSIDE RECORDS SUMMARY | 2024-07-20 19:06 | XMS_ITS | Clinical Summary ---
Author Organization [employer] Address [address] [facility] 7t [place] [address] Care Team Providers Care Chief Clerk Name Role Phone Marleen Jovel MD Primary Care Provider [phone] Allergies No known active allergies Medications albuterol [...] referral in the system. Will send to [facility]. Please attach media from ECG done in [...] Encounters Date Type Department Care Team Description 07/18/2024 Orders Only GENERIC EXTERNAL DATA DEPARTMENT Provider, Generic External Data 07/07/2024 Orders Only [facility] External Provider, [facility] 06/22/2024 Orders Only [facility] External Provider, [facility] 06/19/2024 Orders Only [facility] External Provider, [facility] 05/01/2024 3:15 PM EST Office Visit [facility] [address] [place] [address] Marleen Jovel MD Acute non intractable tension-type headache (Primary Dx); Abnormal EKG; Essential hypertension 05/01/2024 Travel 04/28/2024 Refill [facility] [address] [place] [address] Marleen Jovel MD 04/24/2024 Patient Outreach [facility] [address] [place] [address] Marleen Jovel MD Pre-visit Planning (Pre-visit planning [...] of 2) 2014 COVID-19 Vaccine (3 - 2023- season) 2024 01/07/2021, 12/17/2020 RSV Patients and [...] PSA, FREE Routine 07/18/2024 10:47 AM EST US RENAL BI Routine 07/07/2024 4:29 PM [...] Recently Relevant to Health Maintenance Results * (ABNORMAL) PSA, Free and Total (07/18/2024 12:25 PM EST) PSA, Total 4.1(A) < OR = 4.0 ng/mL [facility] PSA % Free 17(A) >25 % (calc) [facility] Comment: PSA(ng/mL) ?Free PSA(%) ? [...] ? 9 ? (3)Bonifacio et al.:ZAYDA 277: 3584-3272 (1996) ? (4)Bonifacio et al.:ZAYDA 279: 6079-2769 (1997)(x)These estimates vary with age, ethnicity, family [...] presence or absence ofdisease.THIS TEST WAS PERFORMED AT:[facility] [address] ??[phone] SANCHEZ MD PSA, Free 0.7 ng/mL [facility] 07/18/2024 12:2 5 PM EST 07/18/2024 12:25 PM EST Generic External Data Provider LAB BLOOD ORDERAB LES Final Result Performing Organization Address [facility] Co de Phone Number [facility] [address] [place] [phone] * (ABNORMAL) PSA, Total With Reflex to PSA, Free (07/18/2024 10:47 AM EST) PSA,Total (Free>4and<10) 4.06(H) 0.00 - 4.00 ng/mL [facility] Comment:PSA methodology: Stas Jackson i ChemiluminescentMicroparticle Immunoassay (CMIA) 07/18/2024 10:4 7 AM EST 07/18/2024 10:47 AM EST us Generic External Data Provider LAB BLOOD ORDERAB LES Final Result Performing Organization Address [facility] Co de Phone Number [facility] [address] [place] [phone] * US RENAL BI (07/07/2024 4:29 PM EST) Anatomical Region Laterality Modality Abdomen Ultrasound 07/07/2024 4:29 PM EST Narrative 07/08/2024 1:30 PM EST ? [facility] ?[address] ?[place] [address] ? Ultrasound Report ? Signed ? Patient: Carson Ortiz,Howard ?MR#: [id number] ?? [id number] ? : 1965 ?Acct:[id number] ? Age/Sex: 59 / M ?ADM Date: 07/07/24 ? Loc: HO.US ? Attending Dr: Kaley MIGUEL ? Ordering Physician: Kaley Burgos ?? Date of Service: 07/07/24 ?? Procedure(s): US renal BI ?? Accession Number(s): [id number] ? cc: Kaley Burgos; Marleen Jovel MD [...] DD/ 1629 ? TD/TT: 07/07/24 1642 ? Slicing Machine Feeder: ? Procedure Note Donotletyinterpreter, Image - 07/08/2024 [place] [address] Ultrasound Report Signed Patient: Howard JuniorMR#: [id number] : 1965Acct:[id number] Age/Sex: 59 / MADM Date: 07/07/24 Loc: HO.US Attending Dr: Kaley MIGUEL Ordering Physician: Kaley Burgos Date of Service: 07/07/24 Procedure(s): US renal BI Accession Number(s): [id number] cc: Kaley Burgos; Marleen Jovel MD EXAMINATION: [...] by: Alexandro Blandon MD 07/08/2024 01:27 PM [facility] Dictated By: Alexandro Blandon MD Signed By: <Electronically signed by Alexandro Blandon MD in OV> 07/08/24 1327 DD/ 1629 TD/TT: 07/07/24 1642 Slicing Machine Feeder: [facility] External Provider IMG US PROCEDURES Final Result * SARS-CoV-2 RNA, Influenza A/B, and RSV RNA, Ql NAAT (06/22/2024 3:40 PM EST) Influenza A PCR NEGATIVE Negative [facility] Influenza B PCR NEGATIVE Negative [facility] Resp Syncy Virus RNA Qual PCR NEGATIVE Negative [facility] SARS COV2 PCR NEGATIVE Negative [facility] Comment:All test results mus t be [...] use by authorized laboratories.Testing performed on the [employer] GeneXpert utilizingreal-time RT-PCR.All SARS CoV2 and positive influenza A/B results arereported to [facility]. 06/22/2024 3:40 PM EST 06/22/2024 3:43 PM EST Generic External Data Provider LAB MICROBIOLOGY - GENERAL ORDERABLES Final Result [facility] [address] [place] [phone] * XR Chest 2 Views (06/22/2024 1:57 PM EST) Anatomical Region Laterality Modality Chest Radiographic Vernell ging 06/22/2024 1:57 PM EST Narrative 06/22/2024 2:31 PM EST ? [facility] ?[address] ?[place] [address] ?XRay Report ? Signed ? Patient: Alli Ortiz,Howard ?MR#: [id number] ?? [id number] ? : 1965 ?Acct:[id number] ? Age/Sex: 59 / M ?ADM Date: 06/22/24 ? Loc: HO.ED ? Attending Dr: ? Ordering Physician: Misbah Santillan ?? Date of Service: 06/22/24 ?? Procedure(s): XR chest 2V ?? Accession Number(s): [id number] ? cc: Misbah Santillan; Marleen Jovel MD [...] 02:28 PM EST RP ? Dictated By: ?Moisés Villatoro MD ? Signed By: ?<Electronically signed by Moisés Villatoro MD in OV> ?06/22/24 1428 ? DD/ 1357 ? TD/TT: 06/22/24 1407 ? Slicing Machine Feeder: MSM ? Procedure Note Farzana Walls - 06/22/[address] [address] XRay Report Signed Patient: Howard JuniorMR#: [id number] : 1965Acct:[id number] Age/Sex: 59 / MADM Date: 06/22/24 Loc: HO.ED Attending Dr: Ordering Physician: Misbah Santillan Date of Service: 06/22/24 Procedure(s): XR chest 2V Accession Number(s): [id number] cc: Misbah Santillan; Jovel,Marleen MD EXAMINATION: XR CHEST CLINICAL INFORMATION: Chest pain and coughing with mucus production COMPARISON: None available. TECHNIQUE: 2 views of the chest were obtained. FINDINGS: The lungs are hypoexpanded but clear. The heart size and pulmonary vascularity is normal. No gross bony abnormality seen. XR/XR chest 2V IMPRESSION: Hypoexpanded lungs without acute process. Electronically signed by: Moisés Villatoro MD 06/22/2024 02:28 PM EST RP Dictated By: Moisés Villatoro MD Signed By: <Electronically signed by Moisés Villatoro MD in OV> 06/22/24 1428 DD/ 1357 TD/TT: 06/22/24 1407 Slicing Machine Feeder: NICANOR [facility] External Provider IMG XR PROCEDURES Final Result * Stress test with myocardial perfusion (06/19/2024 10:15 AM EST) 06/19/2024 10:1 5 AM EST Narrative [facility] - 06/23/2024 9:06 AM EST ? [facility] ?[address] ?[place] [address] ?Nuclear Medicine Report ? Signed ? Patient: Howard Junior ?MR#: [id number] ?? [id number] ? : 1965 ?Acct:[id number] ? Age/Sex: 59 / M ?ADM Date: 06/19/24 ? Loc: HO.CARD ? Attending Dr: Sherlyn LAROSE ? Ordering Physician: Sherlyn Duarte ?? Date of Service: 06/19/24 ?? Procedure(s): NM cardiolite stress test ?? Accession Number(s): [id number] ? cc: Sherlyn Duarte; Marleen Jovel MD [...] DD/ 1015 ? TD/TT: 06/22/24 1445 ? Slicing Machine Feeder: ? Procedure Note Farzana Walls - 06/23/[address] [address] Nuclear Medicine Report Signed Patient: Howard Junior#: [id number] : 1965Acct:[id number] Age/Sex: 59 / MADM Date: 06/19/24 [facility]: Sherlyn LAROSE Ordering Physician: Sherlyn Duarte Date of Service: 06/19/24 Procedure(s): NM cardiolite stress test Accession Number(s): [id number] cc: Sherlyn Duarte; Marleen Jovel MD Lexiscan [...] by: Jorge Martin MD 06/23/2024 09:02 AM [facility] Dictated By: Jorge Martin MD Signed By: <Electronically signed by Jorge Martin MD in OV> 06/23/24 0902 DD/ 1015 TD/TT: 06/22/24 1445 Slicing Machine Feeder: [facility] External Provider CV STRE SS PROCEDURES Edited Result - Final Performing Organization Address [facility]/ZIP Co de Phone Number [facility] [address] [place] [address] * Hepatitis C Antibody with Reflex to HCV, RNA, Quantitative, Real-Time PCR (10/28/2023 10:49 AM EDT) Hepatitis C Antibody Nonreactive Nonreactive [facility] Comment:Antibodies to HCV no t detected; does not exclude early acuteHCV infection. Blood Venous blood specimen / Unknown 10/28/2023 10:49 AM EDT 10/28/2023 2:07 PM EDT Marleen Jovel MD LAB BLOOD ORDERABLES Final Re sult Performing Organization Address City/[facility] Hospital/ZIP Co de Phone Number [facility] [address] [place] [phone] * HIV-1/2 Antigen and Antibodies, Fourth Generation, with Reflexes (10/28/2023 10:49 AM EDT) HIV AB/AG Nonreactive Nonreactive [facility] Comment:HIV-1 p24 Ag and/or HIV-1/HIV-2 Ab not detected.A test result that is nonreactive does not exclude thepossibility of exposure to or infection with HIV-1 and/orHIV-2. Nonreactive results in this assay for individualswith prior exposure to HIV-1 and/or HIV-2 may be due toantigen and antibody levels that are below the limit ofdetection of this assay.[facility] HIV Ag/Ab Combo assay result andsupplemental assay results should be interpreted inconjunction with the patient's clinical presentation,history and other laboratory results. If the results areinconsistent with clinical evidence, additional testing issuggested to confirm the result. Blood Venous blood specimen / Unknown 10/28/2023 10:49 AM EDT 10/28/2023 2:07 PM EDT us Marleen Jovel MD LAB BLOOD ORDERABLES Final Re sult Performing Organization Address [facility] Co de Phone Number [facility] [address] [place] [phone] * (ABNORMAL) Lipid Panel, Standard (10/28/2023 10:49 AM EDT) Triglycerides 62 <150 mg/dL [facility] Comment:Desirable Triglyceri de: less than 150 mg/dLBorderline High Triglyceride 150-199 mg/dLHigh Triglyceride: 200-499 mg/dLVery High Triglyceride: greater than or equal to 5OO mg/dL Cholesterol 174 <200 mg/dL [facility] Comment:Desirable Cholestero l: less than 200 mg/dLBorderline High Cholesterol: 200-239 mg/dLHigh Cholesterol: greater than 239 mg/dL LDL Cholesterol Calculated 107(H) <100 mg/dL [facility] Comment:Desirable LDL: less than 100 mg/dLNear Optimal/Above Optimal LDL: 110- 129 mg/dLBorderline High LDL: 130-159 mg/dLHigh LDL: 160-189 mg/dLVery High LDL: greater than or equal to 190 mg/dL HDL Cholesterol 55 >40 mg/dL [facility] Comment:Desirable HDL: great er than 40 mg/dL Note: This HDL assay may give artificially low results in patients with liver disease. Blood Venous blood specimen / Unknown 10/28/2023 10:49 AM EDT 10/28/2023 2:07 PM EDT us Marleen Jovel MD LAB BLOOD ORDERABLES Final Re sult Performing Organization Address [facility] Co de Phone Number [facility] [address] [place] [phone] from Last 3 Months or Most Recently Relevant to Health Maintenance Insurance [facility] Care Teams Chief Clerk Relationship Specialty Start Date End Date Marleen Jovel MD [address] [place] [address] PCP - General Family Medicine 10/28/23
== END 2024-07-20 14:45 | disposition home or self-care (01) ==
LOC: HO.US 14:44
PROVIDERS: PCP Family Medicine; Visit Provider Nurse Practitioner Family
DX: R35.1 Nocturia (principal)
CPT/HCPCS: 76857

== ENCOUNTER → 2024-07-20 14:46 | Outpatient (BNV) | payer OTHER, SELFPAY | PROVIDERS: PCP Family Medicine; Visit Provider Nuclear Medicine | DX: R35.1 Nocturia (principal) | CPT/HCPCS: 76857 ==

== ENCOUNTER 2024-07-27 13:35 | Outpatient (AMB) | payer OTHER, SELFPAY ==
[2024-07-27 13:46] VITALS: BP 100/72; PULSE 83; BMI 33.4
--- NOTE | 2024-07-27 13:46 | A.OFFVIS_ITS ---
Vital Signs 07/27/24 13:46 Height 5 ft 7 in Weight 212 lb 15.465 oz BMI 33.4 BP 100/72 Blood Pressure Location Lt brachial Position Sitting Pulse 83 Pulse Source Pulse Oximeter Intake Visit Reasons: 2m follow up/CTA/Echo Supervisor Customer Records Division Required: Yes Supervisor Customer Records Division Name: voice Allergies No Known Allergies Allergy (Verified 07/27/24 13:49) Medication List - Last Reconciled 07/27/24 by Sherlyn Duarte NP-C albuterol sulfate 90 mcg/actuation 2 puffs inhalation Q4-6H PRN albuterol sulfate 90 mcg/actuation 2 inhalations inhalation Q6-8H PRN amlodipine mg PO DAILY betamethasone valerate 0.1% 1 appl topical DAILY blood pressure test kit-large As directed cetirizine 10 mg PO DAILY pantoprazole mg PO DAILY prednisone 40 mg (2 x 20 mg) PO DAILY tizanidine 2 mg PO BID PRN tramadol 50 mg PO TID PRN HPI HPI 2m follow up/CTA/Echo: Details: Howard is a 59-year-old male with past medical history of hypertension, pre diabetes, umbilical hernia in need of repair who had 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 Today he reports that he has been doing well. He has some random pains in his left chest that he tells me now is only when he coughs. He does not get chest discomfort brought on by walking or stair climbing. He does have shortness of breath with exertional activities which is not new. He admits to shortness of breath with climbing a flight of stairs. No PND, orthopnea or edema. No heart palpitations, lightheadedness, presyncope, syncope, falls. 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 He still drinks 4-5 beers weekly. On last visit he was referred to GI however has not gotten an appointment as of yet. He had reported chronic issues with difficulty swallowing and choking on his food. He does this with every meal, every day. He is not able to go to restaurants. This has been ongoing for the last 3-4 years and still persists. [facility] Medical History Arthritis Back pain Scoliosis Cough Habitual snoring Bronchitis Asthma Chest pain Nocturia GERD (gastroesophageal reflux disease) HTN (hypertension) Surgical History Hx of hernia repair Hx of release of tendon Hx of bilateral inguinal hernia repair Social History Are you a primary career development coordinator to a significant other at home: No Do you presently have visiting nurse or other home services: No Alcohol intake: current Alcohol intake frequency: 0-2 drinks per day Patient Tobacco Use Status: Never used Tobacco Review of Systems Const All systems reviewed & are unremarkable except as noted in HPI and below ENT Denies dizziness Card Denies chest pain, Denies chest pain at rest, Denies chest pain with activity, Denies rapid heart rate, Denies pedal edema, Denies edema, Denies leg edema, Denies lightheadedness, Denies palpitations, Denies dyspnea, Denies dyspnea on exertion and Denies orthopnea Resp Denies cough, Denies dyspnea and Denies dyspnea on exertion GI Details: difficulty swallowing Denies hematochezia and Denies change in stool character Musc Denies abnormal gait, Denies limited range of motion, Denies muscle cramps, Denies muscle weakness, Denies numbness, Denies radiating pain into limb, Denies stiffness and Denies tingling Neuro Denies abnormal gait, Denies dizziness, Denies numbness and Denies tingling Endo Denies palpitations Physical Exam Vital Signs: Last Vital Signs Pulse 83 07/27/24 13:46 BP 100/72 07/27/24 13:46 BMI result Body Mass Index 33.4 Const General: cooperative, healthy appearing, comfortable and no acute distress Orientation/consciousness: patient oriented x3 Neck Neck: Yes normal visual inspection and Yes no JVD Resp Effort & Inspection: normal respiratory effort Auscultation: clear to auscultation bilaterally, no crackles, no rales, no rhonchi and no wheezes Cardio Rate: regular rate Rhythm: regular rhythm Heart sounds: S1 normal heart sound present, S2 normal heart sound present, no murmurs and no rubs Neuro General: patient oriented x3 Extrem General: Yes normal to inspection and No no pedal edema Psych Appearance: grossly normal Mental Status: mental status grossly normal Speech and movement: Normal speech and movement present Assessment & Plan Assessment & Plan (1) Abnormal EKG: Code(s): R94.31 - Abnormal electrocardiogram [ECG] [EKG] Category: Medical Plan: EKG done recently showing normal sinus rhythm with inferior infarct. Patient has no known history of heart disease or prior GA. He has cardiac risk factors of hypertension and borderline diabetes. He does report noncardiac sounding chest discomfort and he has shortness of breath with exertional activities. He is preop for umbilical hernia surgery. Echocardiogram was done on 05/28/2024 showing EF 60-65%, normal valves, no regional wall motion abnormality, ascending aorta 3.8 cm. A nuclear stress test was done 06/19/2024 showing normal myocardial perfusion imaging. Test results reviewed with him in detail. Blood pressure currently well controlled. No med changes made. Signs and symptoms of true angina reviewed with him. Emergency care if ever needed for symptoms. Cardiology follow-up as needed. (2) HTN (hypertension): Code(s): I10 - Essential (primary) hypertension Category: Medical Plan: Blood pressure normal at this time. He is on low-dose amlodipine. No changes made. (3) Preop cardiovascular exam: Code(s): Z01.810 - Encounter for preprocedural cardiovascular examination Category: Medical Plan: Preop for umbilical hernia repair. No date yet. Cardiac testing as above. He may proceed with low cardiac risk. Call/consult Cardiology if needed. (4) Dysphagia: Code(s): R13.10 - Dysphagia, unspecified Category: Medical Plan: Patient has had difficulty swallowing and coughs and chokes on his food every meal, every day for the last 3-4 years. It greatly affects his life as he can not eat around people, in restaurants. His sister states that family members do not want him eating near them as they feel he is going to choke. I will again refer him to the GI department for evaluation. It seems he needs an upper endoscopy. Will forward this note to his PCP. Plan Time spent on chart review, documentation, interview, assessment Coding Level of Care Code Est Pt Level 3 (79884) Complex EM visit Add On G2211 Diagnoses Abnormal EKG R94.31 HTN (hypertension) I10 Preop cardiovascular exam Z01.810 Dysphagia R13.10 Time Spent (min) 24
--- OUTSIDE RECORDS SUMMARY | 2024-07-27 14:57 | XMS_ITS | Encounter Summary ---
Author Organization [employer] Address [address] [facility] [address] [place] [address] Care Team Providers Care Hydrate Control Tender Name Role Phone Marleen Jovel MD Primary Care Provider [phone] Encounter Details Date Type Department Care Team [...] Total 4.1(A) < OR = 4.0 ng/mL [facility] PSA % Free 17(A) >25 % (calc) [facility] Comment: PSA(ng/mL) ?Free PSA(%) ? Estimated(x) [...] ? 9 ? (3)Bonifacio et al.:ZAYDA 277: 7852-5847 (1996) ? (4)Bonifacio et al.:ZAYDA 279: 9947-2653 (1997)(x)These estimates vary with age, ethnicity, family [...] presence or absence ofdisease.THIS TEST WAS PERFORMED AT:[facility] [address] ??[phone] SANCHEZ MD PSA, Free 0.7 ng/mL [facility] 07/18/2024 12:2 5 PM EST 07/18/2024 12:25 PM EST Generic External Data Provider LAB BLOOD ORDERAB LES Final Result Performing Organization Address [facility]/ZIP Co de Phone Number [facility] [address] [place] [phone] * (ABNORMAL) PSA, Total With Reflex to PSA, Free (07/18/2024 10:47 AM EST) PSA,Total (Free>4and<10) 4.06(H) 0.00 - 4.00 ng/mL [facility] Comment:PSA methodology: Stas Jackson i ChemiluminescentMicroparticle Immunoassay (CMIA) 07/18/2024 10:4 7 AM EST 07/18/2024 10:47 AM EST Generic External Data Provider LAB BLOOD ORDERAB LES Final Result Performing Organization Address [facility]/ZIP Co de Phone Number [facility] [address] [place] [phone] documented in this encounter Visit Diagnoses Not on filedocumented in this encounter Additional Health Concerns Assessment Noted Time PHQ-9 Depression Total Score: 0 10/28/19 24 9:20 AM EDT documented as of this encounter Care Teams Hydrate Control Tender Relationship Specialty Start Date End Date Marleen Jovel MD [address] [place] [phone] PCP - General Family Medicine 10/28/23 documented as of this encounter
--- OUTSIDE RECORDS SUMMARY | 2024-07-27 14:57 | XMS_ITS | Clinical Summary ---
[facility] Organization [facility] Address [address] [place] [address] Care Team Providers Care Housekeeping Supervisor Hotel Name Role Phone Unavailable Primary Care Provider [...]
--- OUTSIDE RECORDS SUMMARY | 2024-07-27 14:57 | XMS_ITS | Clinical Summary ---
Author Organization [employer] Address [address] [facility] 7t [place] [address] Care Team Providers Care Land Leveler Name Role Phone Marleen Jovel MD Primary Care Provider [phone] Allergies No known active allergies Medications albuterol [...] referral in the system. Will send to [facility]. Please attach media from ECG done in [...] Encounters Date Type Department Care Team Description 07/20/2024 Orders Only [facility] External Provider, [facility] 07/18/2024 Orders Only GENERIC EXTERNAL DATA DEPARTMENT Provider, Generic External Data 07/07/2024 Orders Only [facility] External Provider, [facility] 06/22/2024 Orders Only [facility] External Provider, [facility] 06/19/2024 Orders Only [facility] External Provider, [facility] 05/01/2024 3:15 PM EST Office Visit [facility] [address] [place] [address] Marleen Jovel MD Acute non intractable tension-type headache (Primary Dx); Abnormal EKG; Essential hypertension 05/01/2024 Travel 04/28/2024 Refill [facility] [address] [place] [address] Marleen Jovel MD from Last 3 Months Immunizations Name Administration [...] 1965 FIT 1964 FOBT 1964 Sigmoidoscopy 1964 Alcohol/Substance Use Screening 1976 DTaP/Tdap/Td Vaccines (1 - Tdap) 1983 Pneumococcal Vaccine: 50+ Years (1 of 2 - PCV) 1983 Zoster Vaccines (1 of 2) 2014 [...] Name Priority Date/Time Associated Diagnosis Comments US BLADDER Routine 07/22/2024 3:24 PM EST PSA, FREE AND TOTAL Routine 07/18/2024 1 [...] Relevant to Health Maintenance Results * US BLADDER (07/22/2024 3:24 PM EST) Anatomical Region Laterality Modality Abdomen Ultrasound 07/22/2024 3:24 PM EST Narrative 07/22/2024 3:25 PM EST ? [facility] ?[address] ?[place] [address] ? Ultrasound Report ? Signed ? Patient: Howard Junior ?MR#: [id number] ?? [id number] ? : 1965 ?Acct:[id number] ? Age/Sex: 59 / M ?ADM Date: 07/20/24 ? Loc: HO.US ? Attending Dr: Kaley MIGUEL ? Ordering Physician: Kaley Burgos ?? Date of Service: 07/20/24 ?? Procedure(s): US bladder ?? Accession Number(s): [id number] ? cc: Kaley Burgos; Marleen Jovel MD ? CLINICAL HISTORY: NOCTURIA ? US Urinary Bladder ? Comparison: None ? Findings: ?? The urinary bladder is unremarkable. ?? Prevoid volume: 230 mLPostvoid volume: 35 mL ? Ureteral jets are visualized bilaterally. ? IMPRESSION: ?? Unremarkable urinary bladder ? This document has been electronically signed by: Vanita Graves MD on ?? 07/22/2024 15:24:22 ? Dictated By: ?Vanita Graves MD ? Signed By: ?<Electronically signed by Vanita Graves MD in OV> ? 07/22/24 1524 ? DD/ 1524 ? TD/TT: 07/22/24 1524 ? Whiting Can Worker: ? Procedure Note Doncesar, Image - 07/22/2024 [place] [address] Ultrasound Report Signed Patient: Howard JuniorMR#: [id number] : 1965Acct:[id number] Age/Sex: 59 / MADM Date: 07/20/24 Loc: HO.US Attending Dr: Kaley MIGUEL Ordering Physician: Kaley Burgos Date of Service: 07/20/24 Procedure(s): US bladder Accession Number(s): [id number] cc: Kaley Burgos; Marleen Jovel MD CLINICAL HISTORY: NOCTURIA US Urinary Bladder Comparison: None Findings: The urinary bladder is unremarkable. Prevoid volume: 230 mLPostvoid volume: 35 mL Ureteral jets are visualized bilaterally. IMPRESSION: Unremarkable urinary bladder This document has been electronically signed by: Vanita Graves MD on 07/22/2024 15:24:22 Dictated By: Vanita Graves MD Signed By: <Electronically signed by Vanita Graves MD in OV> 07/22/24 1524 DD/ 1524 TD/TT: 07/22/24 1524 Whiting Can Worker: us [facility] External Provider IMG US PROCEDURES Edited Result - Final * (ABNORMAL) PSA, Free and Total (07/18/2024 12:25 PM EST) PSA, Total 4.1(A) < OR = 4.0 ng/mL [facility] PSA % Free 17(A) >25 % (calc) [facility] Comment: PSA(ng/mL) ?Free PSA(%) ? Estimated(x) Probability ? of Cancer(as%)0-2.5 ?(*) ? Approx. 12.6-4.0(1) ? 0-27(2) ? 24(3)4.1-10(4) ?0-10 ?56 ? 11-15 ? 28 ? 16-20 ? 20 ? 21-25 ? 16 ? >or =26 ? 8>10(+) ? N/A ?>50References:(1)Bonifacio et al.:Urology 60: 469-474 (2002) ? (2)Bonifacio et al.:J.Urol 168: 922-925 (2002) ?Free PSA(%) ?? Sensitivity(%) ??Specificity(%) ?< or = 25 ?85 ?19 ?< or = 30 ?93 ? 9 ? (3)Bonifacio et al.:ZAYDA 277: 9497-0735 (1996) ? (4)Bonifacio et al.:ZAYDA 279: 8577-1119 (1997)(x)These estimates vary with age, ethnicity, family [...] presence or absence ofdisease.THIS TEST WAS PERFORMED AT:?[address] [place] [address] ??[phone] SANCHEZ MD PSA, Free 0.7 ng/mL [facility] 07/18/2024 12:2 5 PM EST 07/18/2024 12:25 PM EST us Generic External Data Provider LAB BLOOD ORDERAB LES Final Result [facility] [address] [place] [phone] [phone] * (ABNORMAL) PSA, Total With Reflex to PSA, Free (07/18/2024 10:47 AM EST) PSA,Total (Free>4and<10) 4.06(H) 0.00 - 4.00 ng/mL [facility] Comment:PSA methodology: Stas Jackson i ChemiluminescentMicroparticle Immunoassay (CMIA) 07/18/2024 10:4 7 AM EST 07/18/2024 10:47 AM EST us Generic External Data Provider LAB BLOOD ORDERAB LES Final Result [facility] [address] [facility] [place] [address] [phone] * US RENAL BI (07/07/2024 4:29 PM EST) Anatomical Region Laterality Modality Abdomen Ultrasound 07/07/2024 4:29 PM EST Narrative 07/08/2024 1:30 PM EST ? [facility] ?[address] ?[place] [address] ? Ultrasound Report ? Signed ? Patient: Alli Ortiz,Howard ?MR#: [id number] ?? [id number] ? : 1965 ?Acct:[id number] ? Age/Sex: 59 / M ?ADM Date: 07/07/24 ? Loc: HO.US ? Attending Dr: Kaley MIGUEL ? Ordering Physician: Kaley Burgos ?? Date of Service: 07/07/24 ?? Procedure(s): US renal BI ?? Accession Number(s): [id number] ? cc: Kaley Burgos; Marleen Jovel MD [...] DD/ 1629 ? TD/TT: 07/07/24 1642 ? Whiting Can Worker: ? Procedure Note Donalonsoter, Image - 07/08/2024 [place] [address] Ultrasound Report Signed Patient: Howard JuniorMR#: [id number] : 1965Acct:[id number] Age/Sex: 59 / MADM Date: 07/07/24 Loc: HO. Attending Dr: Kaley MIGUEL Ordering Physician: Kaley Burgos Date of Service: 07/07/24 Procedure(s): US renal BI Accession Number(s): [id number] cc: Kaley Burgos; Marleen Jovel MD EXAMINATION: [...] 07/08/24 1327 DD/ 1629 TD/TT: 07/07/24 1642 [employer]iting Can Worker: us [facility] External Provider IMG US PROCEDURES Final Result * SARS-CoV-2 RNA, Influenza A/B, and RSV RNA, Ql NAAT (06/22/2024 3:40 PM EST) Influenza A PCR NEGATIVE Negative [facility] Influenza B PCR NEGATIVE Negative [facility] Resp Syncy Virus RNA Qual PCR NEGATIVE Negative [facility] SARS COV2 PCR NEGATIVE Negative [facility] Comment:All test results mus t [...] use by authorized laboratories.Testing performed on the redealize GeneXpert utilizingreal-time RT-PCR.All SARS CoV2 and positive influenza A/B results arereported to [facility]. 06/22/2024 3:40 PM EST 06/22/2024 3:43 PM EST us Generic External Data Provider LAB MICROBIOLOGY - GENERAL ORDERABLES Final Result [facility] [address] [place] [address] [phone] * XR Chest 2 Views (06/22/2024 1:57 PM EST) Anatomical Region Laterality Modality Chest Radiographic Vernell ging 06/22/2024 1:57 PM EST Narrative 06/22/2024 2:31 PM EST ? [facility] ?[address] ?[place] [address] ?XRay Report ? Signed ? Patient: Alli OrtizHoward ?MR#: [id number] ?? [id number] ? : 1965 ?Acct:[id number] ? Age/Sex: 59 / M ?ADM Date: 06/22/24 ? Loc: HO.ED ? Attending Dr: ? Ordering Physician: Misbah Santillan ?? Date of Service: 06/22/24 ?? Procedure(s): XR chest 2V ?? Accession Number(s): [id number] ? cc: Misbah Santillan; Marleen Jovel MD [...] DD/ 1357 ? TD/TT: 06/22/24 1407 ? [employer]iting [employer] Worker: MSM ? Procedure Note Kavita, Image - 06/22/2024 [facility] [address] [facility] [place] [address] XRay Report Signed Patient: Howard JuniorMR#: [id number] : 1965Acct:[id number] Age/Sex: 59 / MADM Date: 06/22/24 Loc: HO.ED Attending Dr: Ordering Physician: Misbah Santillan Date of Service: 06/22/24 Procedure(s): XR chest 2V Accession Number(s): [id number] cc: Misbah Santillan; Marleen Jovel MD EXAMINATION: [...] 06/22/24 1428 DD/ 1357 TD/TT: 06/22/24 1407 [employer]iting Can Worker: NICANOR [facility] External Provider IMG XR PROCEDURES Final Result * Stress test with myocardial perfusion (06/19/2024 10:15 AM EST) 06/19/2024 10:1 5 AM EST Narrative [facility] - 06/23/2024 9:06 AM EST ? [facility] ?[address] ?[place] [address] ?Nuclear Medicine Report ? Signed ? Patient: Alli Ortiz,Ohward ?MR#: [id number] ?? [id number] ? : 1965 ?Acct:[id number] ? Age/Sex: 59 / M ?ADM Date: 12/27/24 ? Loc: HO.CARD ? Attending Dr: Sherlyn LAROSE ? Ordering Physician: Sherlyn Duarte ?? Date of Service: 06/19/24 ?? Procedure(s): NM cardiolite stress test ?? Accession Number(s): [id number] ? cc: Sherlyn Duarte; Marleen Jovel MD [...] DD/ 1015 ? TD/TT: 06/22/24 1445 ? Whiting Can Worker: ? Procedure Note Donotuseinterpreter, Image - 06/23/[address] [address] Nuclear Medicine Report Signed Patient: Howard JuniorMR#: [id number] : 1965Acct:[id number] Age/Sex: 59 / MADM Date: 06/19/24 Loc: SEKOU Attending Dr: Sherlyn LAROSE Ordering Physician: Sherlyn Duarte Date of Service: 06/19/24 Procedure(s): NM cardiolite stress test Accession Number(s): [id number] cc: Sherlyn Duarte; Marleen Jovel MD [facility] [...] 06/23/24 0902 DD/ 1015 TD/TT: 06/22/24 1445 [employer]iting [employer] Worker: [facility] External Provider CV STRE SS PROCEDURES Edited Result - Final Performing Organization Address [facility] Co de Phone Number [facility] [address] [place] [phone] * Hepatitis C Antibody with Reflex to HCV, RNA, Quantitative, Real-Time PCR (10/28/2023 10:49 AM EDT) Hepatitis C Antibody Nonreactive Nonreactive [facility] Comment:Antibodies to HCV no t detected; does not exclude early acuteHCV infection. Blood Venous blood specimen / Unknown 10/28/2023 10:49 AM EDT 10/28/2023 2:07 PM EDT Marleen Jovel MD LAB BLOOD ORDERABLES Final Re sult Performing Organization Address [facility]/ZIP Co de Phone Number [facility] [address] [place] [address] [phone] * HIV-1/2 Antigen and Antibodies, Fourth Generation, with Reflexes (10/28/2023 10:49 AM EDT) HIV AB/AG Nonreactive Nonreactive [facility] Comment:HIV-1 p24 Ag and/or HIV-1/HIV-2 Ab not detected.A test result that is nonreactive does not exclude thepossibility of exposure to or infection with HIV-1 and/orHIV-2. Nonreactive results in this assay for individualswith prior exposure to HIV-1 and/or HIV-2 may be due toantigen and antibody levels that are below the limit ofdetection of this assay.The [employer] Raise HIV Ag/Ab Combo assay result andsupplemental assay results should be interpreted inconjunction with the patient's clinical presentation,history and other laboratory results. If the results areinconsistent with clinical evidence, additional testing issuggested to confirm the result. Blood Venous blood specimen / Unknown 10/28/2023 10:49 AM EDT 10/28/2023 2:07 PM EDT us Marleen Jovel MD LAB BLOOD ORDERABLES Final Re sult [facility] [address] [place] [address] [phone] * (ABNORMAL) Lipid Panel, Standard (10/28/2023 10:49 AM EDT) Triglycerides 62 <150 mg/dL [facility] Comment:Desirable Triglyceri de: less than 150 mg/dLBorderline High Triglyceride 150-199 mg/dLHigh Triglyceride: 200-499 mg/dLVery High Triglyceride: greater than or equal to 5OO mg/dL Cholesterol 174 <200 mg/dL [facility] Comment:Desirable Cholestero l: less than 200 mg/dLBorderline High Cholesterol: 200-239 mg/dLHigh Cholesterol: greater than 239 mg/dL LDL Cholesterol Calculated 107(H) <100 mg/dL [facility] Comment:Desirable LDL: less than 100 mg/dLNear Optimal/Above Optimal LDL: 110- 129 mg/dLBorderline High LDL: 130-159 mg/dLHigh LDL: 160-189 mg/dLVery High LDL: greater than or equal to 190 mg/dL HDL Cholesterol 55 >40 mg/dL [facility] Comment:Desirable HDL: great er than 40 mg/dL Note: This HDL assay may give artificially low results in patients with liver disease. Blood Venous blood specimen / Unknown 10/28/2023 10:49 AM EDT 10/28/2023 2:07 PM EDT us Marleen Jovel MD LAB BLOOD ORDERABLES Final Re sult [facility] [address] [place] [address] [phone] from Last 3 Months or Most Recently Relevant to Health Maintenance Insurance [employer] Care Teams Land Leveler Relationship Specialty Start Date End Date Marleen Jovel MD [address] [place] [address] PCP - General Family Medicine 10/28/23
--- OUTSIDE RECORDS SUMMARY | 2024-07-27 14:57 | XMS_ITS | Encounter Summary ---
Author Organization [employer] Address [address] [facility] [address] [place] [address] Care Team Providers Care Ancillary Specialist Name Role Phone Marleen Jovel MD Primary Care Provider [phone] Encounter Details Date Type Department Care Team (Late st Contact Info) Description 07/20/2024 Orders Only [facility] External Provider, [facility] Social History Tobacco Use Types Packs/Day [...] US BLADDER Routine 07/22/2024 3:24 PM EST documented in this encounter Results * US BLADDER (07/22/2024 3:24 PM EST) Anatomical Region Laterality Modality Abdomen Ultrasound 07/22/2024 3:24 PM EST Narrative 07/22/2024 3:25 PM EST ? [facility] ?[address] ?[place] [address] ? Ultrasound Report ? Signed ? Patient: Howard Junior ?MR#: [id number] ?? [id number] ? : 1965 ?Acct:[id number] ? Age/Sex: 59 / M ?ADM Date: 07/20/24 ? Loc: HO.US ? Attending Dr: Kaley MIGUEL ? Ordering Physician: Kaley Burgos ?? Date of Service: 07/20/24 ?? Procedure(s): US bladder ?? Accession Number(s): [id number] ? cc: Kaley Burgos; Marleen Jovel MD [...] DD/ 1524 ? TD/TT: 07/22/24 1524 ? Local Driver: ? Procedure Note Kavita, Image - 07/22/2024 [facility] [address] [place] [address] Ultrasound Report Signed Patient: Howard JuniorMR#: [id number] : 1965Acct:[id number] Age/Sex: 59 / MADM Date: 07/20/24 Loc: HO.US Attending Dr: Kaley MIGUEL Ordering Physician: Kaley Burgos Date of Service: 07/20/24 Procedure(s): US bladder Accession Number(s): [id number] cc: Kaley Burgos; Marleen Jovel MD CLINICAL [...] 07/22/24 1524 DD/ 1524 TD/TT: 07/22/24 1524 Local Driver: [facility] External Provider IMG US PROCEDURES Edited Result - Final documented in this encounter Visit Diagnoses Not on filedocumented in this encounter Additional Health Concerns Assessment Noted Time PHQ-9 Depression Total Score: 0 10/28/19 24 9:20 AM EDT documented as of this encounter Care Teams Ancillary Specialist Relationship Specialty Start Date End Date Marleen Jovel MD [address] [place] [address] PCP - General Family Medicine 10/28/23 documented as of this encounter
--- OUTSIDE RECORDS SUMMARY | 2024-07-27 14:57 | XMS_ITS | Encounter Summary ---
Author Organization [employer] Address [address] [facility] 7t [place] [address] Care Team Providers Care Statuary Painter Name Role Phone Marleen Jovel MD Primary Care Provider [phone] Encounter Details Date Type Department Care Team (Late st Contact Info) Description 07/07/2024 Orders Only [facility] External Provider, [facility] Social History Tobacco Use Types Packs/Day [...] EST Narrative 07/08/2024 1:30 PM EST ? [facility] ?[address] ?[place] [address] ? Ultrasound Report ? Signed ? Patient: Hwoard Junior ?MR#: [id number] ?? [id number] ? : 1965 ?Acct:[id number] ? Age/Sex: 59 / M ?ADM Date: 07/07/24 ? Loc: HO.US ? Attending Dr: Kaley MIGUEL ? Ordering Physician: Kaley Burgos ?? Date of Service: 07/07/24 ?? Procedure(s): US renal BI ?? Accession Number(s): [id number] ? cc: Kaley Burgos; Marleen Jovel MD [...] DD/ 1629 ? TD/TT: 07/07/24 1642 ? Shell Trim Operator: ? Procedure Note Farzana Walls - 07/08/2024 [place] [address] Ultrasound Report Signed Patient: Howard JuniorMR#: [id number] : 1965Acct:[id number] Age/Sex: 59 / MADM Date: 07/07/24 Loc: HO.US Attending Dr: Kaley MIGUEL Ordering Physician: Kaley Burgos Date of Service: 07/07/24 Procedure(s): US renal BI Accession Number(s): [id number] cc: Kaley Burgos; Marleen Jovel MD EXAMINATION: [...] by: Alexandro Blandon MD 07/08/2024 01:27 PM [facility] Dictated By: Alexandro Blandon MD Signed By: <Electronically signed by Alexandro Blandon MD in OV> 07/08/24 1327 DD/ 1629 TD/TT: 07/07/24 1642 Shell Trim Operator: [facility] External Provider IMG US PROCEDURES Final Result documented in this encounter Visit Diagnoses Not on filedocumented in this encounter Additional Health Concerns Assessment Noted Time PHQ-9 Depression Total Score: 0 10/28/19 24 9:20 AM EDT documented as of this encounter Care Teams Statuary Painter Relationship Specialty Start Date End Date Marleen Jovel MD [address] [place] [address] PCP - General Family Medicine 10/28/23 documented as of this encounter
== END 2024-07-27 14:06 | disposition home or self-care (01) ==
PROVIDERS: PCP Family Medicine; Visit Provider Nurse Practitioner Family
DX: R94.31 Abnormal electrocardiogram [ECG] [EKG] (principal); I10 Essential (primary) hypertension; Z01.810 Encounter for preprocedural cardiovascular examination; R13.10 Dysphagia, unspecified
CPT/HCPCS: 99213; G2211

== ENCOUNTER → 2024-07-27 13:35 | Outpatient (BNVA) | payer OTHER, SELFPAY | PROVIDERS: PCP Family Medicine; Visit Provider Nurse Practitioner Family | DX: Z01.810 Encounter for preprocedural cardiovascular examination (principal); I10 Essential (primary) hypertension; R13.10 Dysphagia, unspecified; R94.31 Abnormal electrocardiogram [ECG] [EKG] | CPT/HCPCS: 99212 ==

== ENCOUNTER → 2024-07-28 14:26 | Outpatient (REF) | payer OTHER, SELFPAY ==
--- OUTSIDE RECORDS SUMMARY | 2024-07-28 14:30 | XMS_ITS | Encounter Summary ---
Author Organization [employer] Address [address] [facility] 7t [place] [address] Care Team Providers Care Crater And Packer Name Role Phone Marleen Jovel MD Primary Care Provider [phone] Encounter Details Date Type Department Care Team [...] Total 4.1(A) < OR = 4.0 ng/mL [facility] PSA % Free 17(A) >25 % (calc) [facility] Comment: PSA(ng/mL) ?Free PSA(%) ? [...] ? 9 ? (3)Bonifacio et al.:ZAYDA 277: 6454-3326 (1996) ? (4)Bonifacio et al.:ZAYDA 279: 8098-3499 (1997)(x)These estimates vary with age, ethnicity, family [...] presence or absence ofdisease.THIS TEST WAS PERFORMED AT:[facility] [address] ??[phone] SANCHEZ MD PSA, Free 0.7 ng/mL [facility] 07/18/2024 12:2 5 PM EST 07/18/2024 12:25 PM EST Generic External Data Provider LAB BLOOD ORDERAB LES Final Result Performing Organization Address [facility]/ZIP Co de Phone Number [facility] [address] [place] [phone] * (ABNORMAL) PSA, Total With Reflex to PSA, Free (07/18/2024 10:47 AM EST) PSA,Total (Free>4and<10) 4.06(H) 0.00 - 4.00 ng/mL [facility] Comment:PSA methodology: Sats Jackson i ChemiluminescentMicroparticle Immunoassay (CMIA) 07/18/2024 10:4 7 AM EST 07/18/2024 10:47 AM EST Generic External Data Provider LAB BLOOD ORDERAB LES Final Result Performing Organization Address [facility]/ZIP Co de Phone Number [facility] [address] [place] [phone] documented in this encounter Visit Diagnoses Not on filedocumented in this encounter Additional Health Concerns Assessment Noted Time PHQ-9 Depression Total Score: 0 10/28/19 24 9:20 AM EDT documented as of this encounter Care Teams Crater And Packer Relationship Specialty Start Date End Date Marleen Jovel MD [address] [place] [phone] PCP - General Family Medicine 10/28/23 documented as of this encounter
--- OUTSIDE RECORDS SUMMARY | 2024-07-28 14:30 | XMS_ITS | Clinical Summary ---
Author Organization [facility] Address [address] [place] [address] Care Team Providers Care Reference Librarian Name Role Phone Unavailable Primary Care Provider [...]
--- OUTSIDE RECORDS SUMMARY | 2024-07-28 14:30 | XMS_ITS | Clinical Summary ---
Author Organization [employer] Address [address] [facility] 7t [place] [address] Care Team Providers Care Deputy Sheriff Lieutenant Name Role Phone Marleen Jovel MD Primary Care Provider [phone] Allergies No known active allergies Medications albuterol [...] referral in the system. Will send to [facility]. Please attach media from ECG done in [...] Department Care Team Description 07/20/2024 Orders Only [facility] External Provider, [facility] 07/18/2024 Orders Only GENERIC EXTERNAL DATA DEPARTMENT Provider, Generic External Data 07/07/2024 Orders Only [facility] External Provider, [facility] 06/22/2024 Orders Only [facility] External Provider, [facility] 06/19/2024 Orders Only [facility] External Provider, [facility] 05/01/2024 3:15 PM EST Office Visit [facility] [address] [place] [address] Marleen Jovel MD Acute non intractable tension-type headache (Primary Dx); Abnormal EKG; Essential hypertension 05/01/2024 Travel 04/28/2024 Refill [facility] [address] [place] [address] Marleen Jovel MD from Last 3 Months [...] EST Narrative 07/22/2024 3:25 PM EST ? [facility] ?[address] ?[place] [address] ? Ultrasound Report ? Signed ? Patient: Howard Junior ?MR#: [id number] ?? [id number] ? : 1965 ?Acct:[id number] ? Age/Sex: 59 / M ?ADM Date: 07/20/24 ? Loc: HO.US ? Attending Dr: Kaley MIGUEL ? Ordering Physician: Kaley Burgos ?? Date of Service: 07/20/24 ?? Procedure(s): US bladder ?? Accession Number(s): [id number] ? cc: Kaley Burgos; Marleen Jovel MD [...] DD/ 1524 ? TD/TT: 07/22/24 1524 ? Director Of Infection Control: ? Procedure Note Doncesar, Image - 07/22/2024 [place] [address] Ultrasound Report Signed Patient: Howard JuniorMR#: [id number] : 1965Acct:[id number] Age/Sex: 59 / MADM Date: 07/20/24 Loc: HO.US Attending Dr: Kaley MIGUEL Ordering Physician: Kaley Burgos Date of Service: 07/20/24 Procedure(s): US bladder Accession Number(s): [id number] cc: Kaley Burgos; Marleen Jovel MD CLINICAL [...] 07/22/24 1524 DD/ 1524 TD/TT: 07/22/24 1524 Director Of Infection Control: us [facility] External Provider IMG US PROCEDURES Edited Result - Final * (ABNORMAL) PSA, Free and Total (07/18/2024 12:25 PM EST) PSA, Total 4.1(A) < OR = 4.0 ng/mL [facility] PSA % Free 17(A) >25 % (calc) [facility] Comment: PSA(ng/mL) ?Free [...] ? 9 ? (3)Bonifacio et al.:ZAYDA 277: 5463-7460 (1996) ? (4)Bonifacio et al.:ZAYDA 279: 3892-4056 (1997)(x)These estimates vary with age, ethnicity, family [...] presence or absence ofdisease.THIS TEST WAS PERFORMED AT:[employer] [place] [address] ??[phone] SANCHEZ MD PSA, Free 0.7 ng/mL [facility] 07/18/2024 12:2 5 PM EST 07/18/2024 12:25 PM EST us Generic External Data Provider LAB BLOOD ORDERAB LES Final Result [facility] [address] [place] [address] [phone] * (ABNORMAL) PSA, Total With Reflex to PSA, Free (07/18/2024 10:47 AM EST) PSA,Total (Free>4and<10) 4.06(H) 0.00 - 4.00 ng/mL [facility] Comment:PSA methodology: Stas Jackson i ChemiluminescentMicroparticle Immunoassay (CMIA) 07/18/2024 10:4 7 AM EST 07/18/2024 10:47 AM EST us Generic External Data Provider LAB BLOOD ORDERAB LES Final Result [facility] [address] [facility] [place] [address] [phone] * US RENAL BI (07/07/2024 4:29 PM EST) Anatomical Region Laterality Modality Abdomen Ultrasound 07/07/2024 4:29 PM EST Narrative 07/08/2024 1:30 PM EST ? [facility] ?[address] ?[place] [address] ? Ultrasound Report ? Signed ? Patient: Alli Ortiz,Howard ?MR#: [id number] ?? [id number] ? : 1965 ?Acct:[id number] ? Age/Sex: 59 / M ?ADM Date: 07/07/24 ? Loc: HO.US ? Attending Dr: Kaley MIGUEL ? Ordering Physician: Kaley Burgos ?? Date of Service: 07/07/24 ?? Procedure(s): US renal BI ?? Accession Number(s): [id number] ? cc: Kaley Burgos; Marleen Jovel MD [...] DD/ 1629 ? TD/TT: 07/07/24 1642 ? Director Of Infection Control: ? Procedure Note Donalonsoter, Image - 07/08/2024 [place] [address] Ultrasound Report Signed Patient: Howard JuniorMR#: [id number] : 1965Acct:[id number] Age/Sex: 59 / MADM Date: 07/07/24 Loc: HO. Attending Dr: Kaley MIGUEL Ordering Physician: Kaley Burgos Date of Service: 07/07/24 Procedure(s): US renal BI Accession Number(s): [id number] cc: Kaley Burgos; Marleen Jovel MD EXAMINATION: [...] 07/08/24 1327 DD/ 1629 TD/TT: 07/07/24 1642 Director Of Infection Control: us [facility] External Provider IMG US PROCEDURES Final Result * SARS-CoV-2 RNA, Influenza A/B, and RSV RNA, Ql NAAT (06/22/2024 3:40 PM EST) Influenza A PCR NEGATIVE Negative [facility] Influenza B PCR NEGATIVE Negative [facility] Resp Syncy Virus RNA Qual PCR NEGATIVE Negative [facility] SARS COV2 PCR NEGATIVE Negative [facility] Comment:All test results mus t [...] use by authorized laboratories.Testing performed on the [employer] GeneXpert utilizingreal-time RT-PCR.All SARS CoV2 and positive influenza A/B results arereported to [facility]. 06/22/2024 3:40 PM EST 06/22/2024 3:43 PM EST us Generic External Data Provider LAB MICROBIOLOGY - GENERAL ORDERABLES Final Result [facility] [address] [place] [address] [phone] * XR Chest 2 Views (06/22/2024 1:57 PM EST) Anatomical Region Laterality Modality Chest Radiographic Vernell ging 06/22/2024 1:57 PM EST Narrative 06/22/2024 2:31 PM EST ? [facility] ?[address] ?[place] [address] ?XRay Report ? Signed ? Patient: Alli OrtizHoward ?MR#: [id number] ?? [id number] ? : 1965 ?Acct:[id number] ? Age/Sex: 59 / M ?ADM Date: 06/22/24 ? Loc: HO.ED ? Attending Dr: ? Ordering Physician: Misbah Santillan ?? Date of Service: 06/22/24 ?? Procedure(s): XR chest 2V ?? Accession Number(s): [id number] ? cc: Misbah Santillan; Marleen Jovel MD [...] DD/ 1357 ? TD/TT: 06/22/24 1407 ? Director Of Infection Control: MSM ? Procedure Note Kavita, Image - 06/22/2024 [facility] [address] [place] [address] XRay Report Signed Patient: Howard JuniorMR#: [id number] : 1965Acct:[id number] Age/Sex: 59 / MADM Date: 06/22/24 Loc: HO.ED Attending Dr: Ordering Physician: Misbah Santillan Date of Service: 06/22/24 Procedure(s): XR chest 2V Accession Number(s): [id number] cc: Misbah Santillan; Marleen Jovel MD EXAMINATION: [...] 06/22/24 1428 DD/ 1357 TD/TT: 06/22/24 1407 Director Of Infection Control: NICANOR [facility] External Provider IMG XR PROCEDURES Final Result * Stress test with myocardial perfusion (06/19/2024 10:15 AM EST) 06/19/2024 10:1 5 AM EST Narrative [facility] - 06/23/2024 9:06 AM EST ? [facility] ?[address] ?[place] [address] ?Nuclear Medicine Report ? Signed ? Patient: Alli Ortiz,Howard ?MR#: [id number] ?? [id number] ? : 1965 ?Acct:[id number] ? Age/Sex: 59 / M ?ADM Date: 12/27/24 ? Loc: HO.CARD ? Attending Dr: Sherlyn LAROSE ? Ordering Physician: Sherlyn Duarte ?? Date of Service: 06/19/24 ?? Procedure(s): NM cardiolite stress test ?? Accession Number(s): [id number] ? cc: Sherlyn Duarte; Marleen Jovel MD [...] AM EST RP ? Dictated By: ?Jorge Mratin MD ? Signed By: ?<Electronically signed by Jorge Martin MD in OV> ?06/23/24 0902 ? DD/ 1015 ? TD/TT: 06/22/24 1445 ? Director Of Infection Control: ? Procedure Note Donotuseinterpreter, Image - 06/23/[address] [address] Nuclear Medicine Report Signed Patient: Howard JuniorMR#: [id number] : 1965Acct:[id number] Age/Sex: 59 / MADM Date: 06/19/24 Loc: SEKOU Attending Dr: Sherlyn LAROSE Ordering Physician: Sherlyn Duarte Date of Service: 06/19/24 Procedure(s): NM cardiolite stress test Accession Number(s): [id number] cc: Sherlyn Duarte; Marleen Jovel MD [employer] [...] 06/23/24 0902 DD/ 1015 TD/TT: 06/22/24 1445 Director Of Infection Control: [facility] External Provider CV STRE SS PROCEDURES Edited Result - Final Performing Organization Address [facility] Co de Phone Number [facility] [address] [place] [phone] * Hepatitis C Antibody with Reflex to HCV, RNA, Quantitative, Real-Time PCR (10/28/2023 10:49 AM EDT) Hepatitis C Antibody Nonreactive Nonreactive [facility] Comment:Antibodies to HCV no t detected; does not exclude early acuteHCV infection. Blood Venous blood specimen / Unknown 10/28/2023 10:49 AM EDT 10/28/2023 2:07 PM EDT Marleen Jovel MD LAB BLOOD ORDERABLES Final Re sult Performing Organization Address [facility]/ZIP Co de Phone Number [facility] [address] [place] [address] [phone] * HIV-1/2 Antigen and Antibodies, Fourth Generation, with Reflexes (10/28/2023 10:49 AM EDT) HIV AB/AG Nonreactive Nonreactive [facility] Comment:HIV-1 p24 Ag and/or HIV-1/HIV-2 Ab not detected.A test result that is nonreactive does not exclude thepossibility of exposure to or infection with HIV-1 and/orHIV-2. Nonreactive results in this assay for individualswith prior exposure to HIV-1 and/or HIV-2 may be due toantigen and antibody levels that are below the limit ofdetection of this assay.The [employer] HIV Ag/Ab Combo assay result andsupplemental assay results should be interpreted inconjunction with the patient's clinical presentation,history and other laboratory results. If the results areinconsistent with clinical evidence, additional testing issuggested to confirm the result. Blood Venous blood specimen / Unknown 10/28/2023 10:49 AM EDT 10/28/2023 2:07 PM EDT us Marleen Jovel MD LAB BLOOD ORDERABLES Final Re sult [facility] [address] [place] [address] [phone] * (ABNORMAL) Lipid Panel, Standard (10/28/2023 10:49 AM EDT) Triglycerides 62 <150 mg/dL [facility] Comment:Desirable Triglyceri de: less than 150 mg/dLBorderline High Triglyceride 150-199 mg/dLHigh Triglyceride: 200-499 mg/dLVery High Triglyceride: greater than or equal to 5OO mg/dL Cholesterol 174 <200 mg/dL [facility] Comment:Desirable Cholestero l: less than 200 mg/dLBorderline High Cholesterol: 200-239 mg/dLHigh Cholesterol: greater than 239 mg/dL LDL Cholesterol Calculated 107(H) <100 mg/dL [facility] Comment:Desirable LDL: less than 100 mg/dLNear Optimal/Above Optimal LDL: 110- 129 mg/dLBorderline High LDL: 130-159 mg/dLHigh LDL: 160-189 mg/dLVery High LDL: greater than or equal to 190 mg/dL HDL Cholesterol 55 >40 mg/dL [facility] Comment:Desirable HDL: great er than 40 mg/dL Note: This HDL assay may give artificially low results in patients with liver disease. Blood Venous blood specimen / Unknown 10/28/2023 10:49 AM EDT 10/28/2023 2:07 PM EDT us Marleen Jovel MD LAB BLOOD ORDERABLES Final Re sult [facility] [address] [place] [address] [phone] from Last 3 Months or Most Recently Relevant to Health Maintenance Insurance [facility] Care Teams Deputy Sheriff Lieutenant Relationship Specialty Start Date End Date Marleen Jovel MD [address] [place] [address] PCP - General Family Medicine 10/28/23
--- OUTSIDE RECORDS SUMMARY | 2024-07-28 14:30 | XMS_ITS | Encounter Summary ---
Author Organization [employer] Address [address] [facility] 7t [place] [address] Care Team Providers Care Grip Wrapper Name Role Phone Marleen Jovel MD Primary Care Provider [phone] Encounter Details Date Type Department Care Team (Late st Contact Info) Description 07/07/2024 Orders Only [facility] External Provider, [facility] Social History Tobacco Use Types Packs/Day [...] EST Narrative 07/08/2024 1:30 PM EST ? [facility] ?[address] ?[place] [address] ? Ultrasound Report ? Signed ? Patient: Howard Junior ?MR#: [id number] ?? [id number] ? : 1965 ?Acct:[id number] ? Age/Sex: 59 / M ?ADM Date: 07/07/24 ? Loc: HO.US ? Attending Dr: Kaley MIGUEL ? Ordering Physician: Kaley Burgos ?? Date of Service: 07/07/24 ?? Procedure(s): US renal BI ?? Accession Number(s): [id number] ? cc: Kaley Burgos; Marleen Jovel MD [...] DD/ 1629 ? TD/TT: 07/07/24 1642 ? Coding Consultant: ? Procedure Note Farzana Walls - 07/08/2024 [place] [address] Ultrasound Report Signed Patient: Howard JuniorMR#: [id number] : 1965Acct:[id number] Age/Sex: 59 / MADM Date: 07/07/24 Loc: HO.US Attending Dr: Kaley MIGUEL Ordering Physician: Kaley Burgos Date of Service: 07/07/24 Procedure(s): US renal BI Accession Number(s): [id number] cc: Kaley Burgos; Marleen Jovel MD EXAMINATION: [...] by: Alexandro Blandon MD 07/08/2024 01:27 PM [facility] Dictated By: Alexandro Blandon MD Signed By: <Electronically signed by Alexandro Blandon MD in OV> 07/08/24 1327 DD/ 1629 TD/TT: 07/07/24 1642 Coding Consultant: [facility] External Provider IMG US PROCEDURES Final Result documented in this encounter Visit Diagnoses Not on filedocumented in this encounter Additional Health Concerns Assessment Noted Time PHQ-9 Depression Total Score: 0 10/28/19 24 9:20 AM EDT documented as of this encounter Care Teams Grip Wrapper Relationship Specialty Start Date End Date Marleen Jovel MD [address] [place] [address] PCP - General Family Medicine 10/28/23 documented as of this encounter
--- OUTSIDE RECORDS SUMMARY | 2024-07-28 14:30 | XMS_ITS | Encounter Summary ---
Author Organization [employer] Address [address] [facility] 7t [place] [address] Care Team Providers Care Manager Reporting Name Role Phone Marleen Jovel MD Primary Care Provider [phone] Encounter Details Date Type Department Care Team (Late st Contact Info) Description 07/20/2024 Orders Only [facility] External Provider, [facility] Social History Tobacco Use Types [...] EST Narrative 07/22/2024 3:25 PM EST ? [facility] ?[address] ?[place] [address] ? Ultrasound Report ? Signed ? Patient: Howard Junior ?MR#: [id number] ?? [id number] ? : 1965 ?Acct:[id number] ? Age/Sex: 59 / M ?ADM Date: 07/20/24 ? Loc: HO.US ? Attending Dr: Kaley MIGUEL ? Ordering Physician: Kaley Burgos ?? Date of Service: 07/20/24 ?? Procedure(s): US bladder ?? Accession Number(s): [id number] ? cc: Kaley Burgos; Marleen Jovel MD [...] DD/ 1524 ? TD/TT: 07/22/24 1524 ? Radiology Interventional Physician: ? Procedure Note Kavita, Image - 07/22/2024 [facility] [address] [place] [address] Ultrasound Report Signed Patient: Howard JuniorMR#: [id number] : 1965Acct:[id number] Age/Sex: 59 / MADM Date: 07/20/24 Loc: HO.US Attending Dr: Kaley MIGUEL Ordering Physician: Kaley Burgos Date of Service: 07/20/24 Procedure(s): US bladder Accession Number(s): [id number] cc: Kaley Burgos; Marleen Jovel MD CLINICAL [...] 07/22/24 1524 DD/ 1524 TD/TT: 07/22/24 1524 Radiology Interventional Physician: [facility] External Provider IMG US PROCEDURES Edited Result - Final documented in this encounter Visit Diagnoses Not on filedocumented in this encounter Additional Health Concerns Assessment Noted Time PHQ-9 Depression Total Score: 0 10/28/19 24 9:20 AM EDT documented as of this encounter Care Teams Manager Reporting Relationship Specialty Start Date End Date Marleen Jovel MD [address] [place] [address] PCP - General Family Medicine 10/28/23 documented as of this encounter
== END ==
LOC: HO.SL 14:26
PROVIDERS: PCP Family Medicine; Visit Provider Nurse Practitioner Family
DX: R35.1 Nocturia (principal); R97.20 Elevated prostate specific antigen [PSA]
CPT/HCPCS: 51798; 99212

== ENCOUNTER 2024-07-28 14:44 | Outpatient (AMB) | payer OTHER, SELFPAY ==
--- NOTE | 2024-07-28 15:11 | A.OFFVIS_ITS ---
Intake Visit Reasons: 2m/US/PSA(set) Intake Note: Patient presents today for follow up on: Nocturia and elevated psa Urology Medication: none Antibiotic Allergy: none Blood Thinner: none PVR: 134 (pt unable to urinate) Instrumentation Engineering Technician Required: Yes Accompanied by: Sister Allergies No Known Allergies Allergy (Verified 07/28/24 16:59) Medication List - Last Reconciled 07/28/24 by MYRIAM Canela albuterol sulfate 90 mcg/actuation 2 puffs inhalation Q4-6H PRN albuterol sulfate 90 mcg/actuation 2 inhalations inhalation Q6-8H PRN amlodipine mg PO DAILY betamethasone valerate 0.1% 1 appl topical DAILY blood pressure test kit-large As directed cetirizine 10 mg PO DAILY pantoprazole mg PO DAILY tizanidine 2 mg PO BID PRN tramadol 50 mg PO TID PRN HPI Comments Details: Howard is a very pleasant 59-year-old [place]uran-speaking male patient of who is accompanied by his sister at today's office visit. He has a past medical history of arthritis, back pain, scoliosis, bronchitis, asthma, GERD, and hypertension. He presents to the office today for follow-up. Of note, patient was seen approximately 2 months ago as a new patient for nocturia at which time a retroperitoneal ultrasound and redraw of PSA were ordered for further assessment evaluation. A sleep study was also ordered as patient has been experiencing nocturia and feeling fatigued upon wakening. He also has a history of habitual snoring. He reports prior to today's appointment he obtained home sleep study and plans to complete this tonight. 07/18 bilateral kidneys with tiny bilateral renal cyst, otherwise normal exam. The urinary bladder is unremarkable. Pre void bladder volume is approximately 230 mL. Postvoid bladder volume is approximately 35 mL. The prostate was not well visualized therefore was not measured. PSAs are as follows: 11/14 4.0 % free PSA 8%, 07/18 4.1 % free PSA 17% We again discussed at length potential causes of elevated PSA. We discussed further treatment options to include surveillance monitoring verses trial of finasteride verses prostate biopsy verses MRI of the prostate. Risks and benefits of these interventions were discussed at length. All questions were answered. He does continue to report episodes of nocturia however does feel they have lessened with decreasing amount of fluid prior to bed. He otherwise denies urinary urgency, urinary frequency, incontinence, hematuria, dysuria, foul smelling urine, changes to urinary stream, flank pain, fever, and or chills. We discussed obtaining retroperitoneal ultrasound for further assessment evaluation. In review of patient's chart it appears PSA was ordered and performed. Unable to obtain urine for urinalysis however PVR 134 mL PVR 0 mLs. He otherwise offers no other issues or concerns at this time. [facility] Medical History Arthritis Back pain Scoliosis Cough Habitual snoring Bronchitis Asthma Chest pain Nocturia GERD (gastroesophageal reflux disease) HTN (hypertension) Surgical History Hx of hernia repair Hx of release of tendon Hx of bilateral inguinal hernia repair Social History Are you a primary nursing care partner to a significant other at home: No Do you presently have visiting nurse or other home services: No Alcohol intake: current Alcohol intake frequency: 0-2 drinks per day Patient Tobacco Use Status: Never used Tobacco Review of Systems Const All systems reviewed & are unremarkable except as noted in HPI and below Physical Exam Const General: cooperative, healthy appearing, comfortable, no acute distress, well developed, alert and awake Nutritional Appearance: overweight Orientation/consciousness: patient oriented x3 Limitations: no limitations HEENT Head: Yes normal to inspection, Yes normocephalic and Yes atraumatic Ears: hearing grossly normal bilaterally Eyes General: appearance normal, both eyes and all related structures Neck Neck: Yes normal visual inspection and Yes trachea midline Chest Chest palpation & inspection: normal inspection of the chest Resp Effort & Inspection: normal respiratory effort and able to speak in complete sentences Cardio Rate: regular rate GI Inspection: Yes normal to inspection General: Yes no CVA tenderness Back/Spine/Pelvis Back: no CVA tenderness Skin General skin exam: no rashes or lesions noted Neuro General: patient oriented x3 Extrem General: Yes normal to inspection Psych Appearance: grossly normal and well kempt Mental Status: mental status grossly normal Speech and movement: Normal speech and movement present and Clear speech present Affect: normal affect Attitude: cooperative Thought process: Normal thought process present Thought content: Normal thought content present Insight: Fair insight present (Psych) Judgement: Fair judgement present (Psych) Office Procedures Post Void Residual Post Residual Void Post Void Residual (PVR): 134 20520-Lcac Void Residual by ultrasound Results Reviewed Results Reviewed: Date of Service: 07/07/24 EXAMINATION: US RETROPERITONEAL LIMITED (RENAL ONLY) FINDINGS: RIGHT KIDNEY: 10.1 x 5.6 x 3.7 cm (SAG x AP x TRV). The kidney is normal in size, contour, and echogenicity. Renal cortical thickness is normal. No calculi or suspicious focal parenchymal lesions. No hydronephrosis. There is a mid pole 0.4 cm cyst with a tiny calcification along the posterior wall. This is benign. LEFT KIDNEY: 11.3 x 6.9 x 4.1 cm (SAG x AP x TRV). The kidney is normal in size, contour, and echogenicity. Renal cortical thickness is normal. No calculi or suspicious focal parenchymal lesions. No hydronephrosis. There is a simple lower pole exophytic cyst measuring 0.7 x 0.7 x 0.6 cm. IMPRESSION: 1. Tiny bilateral renal cysts. Otherwise normal exam. Date of Service: 07/20/24 US Urinary Bladder Comparison: None Findings: The urinary bladder is unremarkable. Prevoid volume: 230 mLPostvoid volume: 35 mL Ureteral jets are visualized bilaterally. IMPRESSION: Unremarkable urinary bladder Assessment & Plan Assessment & Plan (1) Nocturia: Code(s): R35.1 - Nocturia Category: Medical (2) Elevated PSA: Code(s): R97.20 - Elevated prostate specific antigen [PSA] Category: Medical Plan Unable to obtain urine for urinalysis today PVR 134 mL. We discussed further treatment options of elevated PSA and risks and benefits of these interventions; this was discussed at length. Will attempt to re obtain bladder ultrasound for measurement of prostate. We discussed although slightly elevated PSA stability in PSA over the last 6 months. PCPT risk calculator results reviewed with the patient today Patient with planned sleep study tonight; will reassess once completed. Continue limiting fluids 2-3 hours prior to bed. GAY offered however deferred. Follow-up in 1-2 months with imaging to be completed prior; or sooner with any issues, concerns, and or questions. Orders: Orders US bladder Today R35.1 - Nocturia AMB Post Void Residual by ultrasound Today R35.1 - Nocturia Patient Instructions: The patient had an opportunity to ask questions regarding the treatment plan. All questions were answered. Physical exam, labs, and imaging were discussed and reviewed in detail. As well as risks, benefits, and discussion of treatment choices. No major barriers to understanding were identified. The patient expressed understanding and agreement with the above treatment plan. The patient was made aware they should contact our office by phone for worsening of their current condition, the appearance of new symptoms, or with any questions or concerns. Compliance is encouraged with any medications and follow up testing that is ordered. It is a privilege to be allowed the opportunity to participate in? your urological care.? Again, if you have any questions or concerns If you have any questions or concerns please do not hesitate to contact me. The office is [phone]. This note is constructed using voice recognition software. While every effort has been made to ensure accuracy swimming teacher errors may have been included. Yours sincerely, MYRIAM Canela Coding Level of Care Code Est Pt Level 4 (07770) Complex EM visit Add On G2211 Diagnoses Nocturia R35.1 Elevated PSA R97.20 CPT Codes Post Residual Void - PVR CPT Code: 82707-Wokl Void Residual by ultrasound ([id number]) Time Spent (min) 35
== END 2024-07-28 15:51 | disposition home or self-care (01) ==
PROVIDERS: PCP Family Medicine; Visit Provider Nurse Practitioner Family
DX: R35.1 Nocturia (principal); R97.20 Elevated prostate specific antigen [PSA]
CPT/HCPCS: 99214; G2211

== ENCOUNTER 2024-08-17 12:00 | Day surgery (SDC) | payer OTHER, SELFPAY ==
[2024-08-13 09:36] VITALS: BMI 33.4
[2024-08-17] VITALS (7 sets, daily range): BP systolic 122–150; BP diastolic 83–90; PULSE 56–81; RESP 16–22; TEMP 36.1–37.3; O2SAT 93–99; BMI 32.5
--- NOTE | 2024-08-17 10:59 | P.CONAN_ITS ---
HPI - Anesthesia Eval Consult details Narrative: 59 yo male patient for repair of recurrent umbilical hernia with mesh PMFSH Active Problems Active Problems: All Active Problems Elevated PSA (Acute) Fatigue (Acute) Snoring (Acute) Dysphagia (Acute) Preop cardiovascular exam (Acute) Abnormal EKG (Acute) Recurrent umbilical hernia (Acute) Nocturia (Acute) HTN (hypertension) (Acute) ?[place]- had test done but never got results Past Medical History Medical History Abnormal EKG Arthritis Back pain Scoliosis Habitual snoring Bronchitis Asthma Nocturia GERD (gastroesophageal reflux disease) HTN (hypertension) Family History Family history of problems with anesthesia: No (sister and mom long to wake) Surgical History Surgical History History of appendectomy H/O hand surgery Hx of hernia repair Hx of release of tendon Hx of bilateral inguinal hernia repair History of Problems with Anesthesia: No Social History Social History Are you a primary progressive care unit registered nurse to a significant other at home: No Do you presently have visiting nurse or other home services: No Alcohol intake: current Alcohol intake frequency: a few times a week Patient Tobacco Use Status: Never used Tobacco Use of substances other than those prescribed or required for medical reasons: No Have you been hit, kicked, punched, or otherwise hurt by someone within the past year? If so, by whom?: No Are you DNR?: No Advance Directives: No Advance Directives Information Provided: No Advance Directives on File: No Recently lost weight without trying: No How much weight loss: Not applicable Eating poorly because of decreased appetite: No Nutrition screen score: 0 Nutrition Risks: No Nutritional Risk Poor oral hygiene: No (missing teeth throughout) Meds Allergies Allergy/AdvReac Type Severity Reaction Status Date / Time No Known Allergies Allergy Verified 08/17/24 12:45 Home Medications ?Medication ?Instructions ?Recorded ?Confirmed ?Last Taken ?Type betamethasone valerate 0.1 % 1 appl topical DAILY 11/28/23 08/17/24 Unknown History topical ointment blood pressure test kit-large #1 ea 11/28/23 07/27/24 Unknown History cetirizine 10 mg tablet 10 mg PO DAILY 11/28/23 08/17/24 Unknown History tizanidine 2 mg tablet 2 mg PO BID PRN muscle spasm 11/28/23 08/17/24 Unknown History tramadol 50 mg tablet 50 mg PO TID PRN Pain 11/28/23 08/17/24 Unknown History amlodipine 5 mg tablet 5 mg PO DAILY 07/27/24 08/17/24 08/17/24 History pantoprazole 20 mg tablet,delayed 20 mg PO DAILY 07/27/24 08/17/24 08/17/24 History release Exam Height,Weight and Vital Signs: Height 5 ft 7 in Weight 96.615 kg Vital Signs Temp Pulse Resp BP Pulse Ox O2 Del Method 08/17/24 12:47 98.3 F 70 16 122/86 98 Room Air Airway Mallampati Class: IV TM Dist: >3cm Neck ROM: Full Loose/Missing/Broken Teeth: Yes (Missing teeth right and left bottom back. Denies broken or loose teeth) Heart: RRR Lungs: CTAB Assessment and Plan Assessment Anesthesia Assessment: Anesthesia Plan Discussed and Chart Reviewed Final Anesthetic Review Family History of Problems with Anesthesia: No (sister and mom long to wake) History of Problems with Anesthesia: No NPO: Yes ASA Class: III Final Preanesthetic Review: No Changes in Pt Med Stat, Meds/Allgs Chart Reviewed, Consent Obtained/Reviewed and Anes Risks/Benef Reviewed Patient Risk: Intermediate Procedure Risk: Low Assessment/Block/Sedation in SS: Assess/Block/Sedation-SS Anesthetic Plan Anesthetic Plan: GA Disposition: Standard PACU
[2024-08-17] MEDS: Lactated Ringers 1,000 ML 100 ML IVCONT (13:11)
--- NOTE | 2024-08-17 13:24 | MHC.SHP ---
Pre-Procedural Eval Section A - 24 Hr Update-Section A only Date of Service: 08/17/24 The patient is an INPATIENT: No Changes since office visit: Yes Patient answered all questions; No Cold of Flu in the past 2 weeks, No New Medical Problems and No Changes in Medication The patient has been examined within 24 hours of the surgical procedure. The History & Physical has been completed within 30 days and I have reviewed it.: No Section B - Complete if H&P > 30 days Chief Complaint: Umbilical hernia without obstruction or gangrene Details of Present Illness: No change in his hernias symptoms Relevant Family History (Specify if Yes): No Relevant Social History: None Present Medications: see Short Stay Collaborative assessment Medical History: No relevant PMH History of Previous Operations: No relevant previous surgery Allergies: Allergies Allergy/AdvReac Type Severity Reaction Status Date / Time No Known Allergies Allergy Verified 08/17/24 12:45 Review of Systems Sugical H&P ROS: Negative: Constitution, Cardiovascular, Respiratory, Neurological, Psychiatric, Hem-Onc, Allergic/Immunologic, Gastrointestinal, Genitourinary, Musculoskeletal, Integumentary, Endocrine and Eyes/Ears/Nose/Throat Exam Surgical H&P Exam: Normal: HEENT, Normal: Heart, Normal: Lungs, Normal: Extremities, Normal: Abdomen, Normal: Skin and Normal: Neurological Plan Diagnosis/Plan: Unchanged I have reviewed the history and physical and performed a pertinent physical examination on my patient. No changes have occurred unless specified. Time Spent With Patient Time: Total time managing care of this patient today ____ minutes.
--- NOTE | 2024-08-17 14:44 | P.OP_ITS ---
Operative Note Operative Note Date of Service: 08/17/24 Narrative: Preoperative diagnosis: Recurrent umbilical hernia Postoperative diagnosis: Same Procedure: Repair of a recurrent umbilical hernia with mesh Surgeon: Brett Manzo MD [employer] Director: Soraya Peck PA-C Anesthesia: General endotracheal Indications for procedure: 59-year-old male patient with a previous history of an umbilical hernia repair now presenting with a recurrent lump which is causing some discomfort. Patient has requested repair of this umbilical hernia. Operative findings: 2 cm umbilical defect, reducible, repaired with a 6.4 cm round Ventralex mesh Specimen: None Estimated blood loss: 4 mL Complications: None Procedure details: Patient was brought to the OR and placed in a supine position. After administering general anesthesia, the patient's abdomen was prepped with ChloraPrep and draped in a sterile fashion. A surgical time-out was called the consent confirmed. Patient received preoperative antibiotics and Venodyne boots were in place. Local anesthesia was infiltrated in a transverse fashion directly above the umbilicus. Incision was then made over the same area and carried out through subcutaneous tissue down to the hernia sac. Umbilical skin was then dissected off the fascia using electrocautery. The margins of the hernia were then dissected down to the fascial edge. The contents of the hernia were reduced into the abdominal cavity. A preperitoneal space was then dissected using a combination of blunt and electrocautery dissection. A 6.4 cm round Ventralex mesh was then obtained. This was deployed within the preperitoneal space and secured in 4 quadrants using a 0 Tycron suture. Fascia was then closed over the mesh using [id number] 0 Tycron sutures. Wounds were then irrigated with saline solution and suctioned dry. Umbilical skin was then reattached to the fascia using a 3-0 Polysorb suture. Dermis was reapproximated using interrupted 3-0 Polysorb sutures. Skin was then closed using a running subcuticular 4-0 Polysorb suture. Steri-Strips, 4 x 4 gauze and Tegaderm were then applied. The patient tolerated the procedure well. Sponge, instrument, needle counts reported as correct. The patient was transferred to PACU in stable condition.
[2024-08-17] MEDS: oxyCODONE HCl Immed Release 5 MG TABLET PO (15:53)
== END 2024-08-17 16:25 | disposition home or self-care (01) ==
PROVIDERS: PCP Family Medicine; Visit Provider Surgery
PROC: (CPT 49613; principal; 2024-08-17 14:10)
DX: K42.9 Umbilical hernia without obstruction or gangrene (principal); I10 Essential (primary) hypertension; K21.9 Gastro-esophageal reflux disease without esophagitis; R73.03 Prediabetes; R13.10 Dysphagia, unspecified; J45.909 Unspecified asthma, uncomplicated; R94.31 Abnormal electrocardiogram [ECG] [EKG]; Z79.52 Long term (current) use of systemic steroids; Z79.899 Other long term (current) drug therapy; Z98.890 Other specified postprocedural states
CPT/HCPCS: 49613; C1781; J0131; J0330; J0690; J1100; J2003; J2250; J2371; J2405; J2704; J2795; J3010

== ENCOUNTER → 2024-08-17 12:00 | Outpatient (BNV) | payer OTHER, SELFPAY | PROVIDERS: PCP Family Medicine; Visit Provider Surgery | DX: K42.9 Umbilical hernia without obstruction or gangrene (principal) | CPT/HCPCS: 49613 ==

== ENCOUNTER 2024-08-27 11:24 | Outpatient (AMB) | payer OTHER, SELFPAY ==
--- NOTE | 2024-08-27 11:28 | A.OFFVIS_ITS ---
Vital Signs 08/27/24 11:32 Height 5 ft 7 in Weight 209 lb 7.026 oz BMI 32.8 Respiration 18 Pulse 72 Intake Visit Reasons: S/P umbilical hernia w/mesh Intake Note: Patient is seen in office for post op assessment post umbilical hernia repair. Pt c/o;denies redness, discharge or signs of infection, admits to constipation is taking the oxycodone for pain surgery:08/17/24 Rn Primary Care Required: No Accompanied by: Self / Same As Patient Allergies No Known Allergies Allergy (Verified 08/27/24 11:32) HPI Comments Details: 59-year-old male patient returning 1 week following repair of a recurrent umbilical hernia with mesh on 08/17/2024. He tolerated the procedure well and denies any problems with discharge or bleeding from the incision. He does have some mild discomfort around the incision and also reports constipation. He denies any fever or chills. [facility] Medical History Abnormal EKG Arthritis Back pain Scoliosis Habitual snoring Bronchitis Asthma Nocturia GERD (gastroesophageal reflux disease) HTN (hypertension) Surgical History History of umbilical hernia repair (08/17/24) History of appendectomy H/O hand surgery Hx of hernia repair Hx of release of tendon Hx of bilateral inguinal hernia repair Social History Are you a primary nonfarm animal caretaker to a significant other at home: No Do you presently have visiting nurse or other home services: No Alcohol intake: current Alcohol intake frequency: a few times a week Patient Tobacco Use Status: Never used Tobacco Review of Systems Const All systems reviewed & are unremarkable except as noted in HPI and below Physical Exam Const General: no acute distress Nutritional Appearance: well nourished Orientation/consciousness: patient oriented x3 GI Other: Well-healed incision in the umbilicus without redness or discharge. No hernia noted with Valsalva maneuvers. Neuro General: patient oriented x3 Extrem General: Yes no clubbing, cyanosis or edema Assessment & Plan Assessment & Plan (1) Recurrent umbilical hernia: Code(s): K42.9 - Umbilical hernia without obstruction or gangrene Category: Medical Plan 59-year-old male patient returning 1 week following repair of an umbilical hernia. His wounds are healing nicely without evidence of infection or hernia recurrence. He should continue to avoid lifting greater than 10 lb for the next 4 weeks and return at that time for follow-up examination. Colace 100 mg p.o. daily for constipation. Coding Level of Care Code Global (29039) Diagnoses Recurrent umbilical hernia K42.9
[2024-08-27 11:32] VITALS: PULSE 72; RESP 18; BMI 32.8
--- OUTSIDE RECORDS SUMMARY | 2024-08-27 14:02 | XMS_ITS | Clinical Summary ---
Author Organization [employer] Address [address] [facility] [address] [place] [id number] Care Team Providers Care Head Of Mathematics Name Role Phone Marleen Jovel MD Primary Care Provider [phone] Allergies No known active allergies Medications albuterol 108 (90 Base) MCG/ACT inhaler Inhale 2 puffs every 4 (four) hours if needed for wheezing or shortness of breath. 18 g 2 10/28/19 24 025 Active tiZANidine (Zanaflex) 2 MG capsule Take 1 capsule (2 mg) by mouth every 8 (eight) hours if needed for muscle spasms. 90 capsule 1 10/28/19 24 Active cetirizine (ZyrTEC) 10 MG tablet Take 1 tablet (10 mg) by mouth Once per day. 90 tablet 1 10/28/19 24 Active Blood Pressure kit 1 Units Once per day. 1 kit 10/28/19 24 Active cholecalcifero l (Vitamin D-3) 50 MCG (1999 UT) capsule Take 1 capsule (50 mcg) by mouth Once per day. 120 capsule 3 11/14/19 24 Active betamethasone valerate (Valisone) 0.1 % ointment Apply topically if needed in the morning and at bedtime (dryness). 45 g 11/14/19 24 Active fluticasone furoate (Arnuity Ellipta) 100 MCG/ACT inhaler Inhale 1 puff Once per day. Rinse mouth with water after use to reduce aftertaste and incidence of candidiasis. Do not swallow. 1 each 11/21/19 24 025 Active Ketotifen Fumarate 0.035 % solution Administer 1 drop into affected eye(s) 2 times daily. 10 mL 02/17/20 24 Active tamsulosin (Flomax) 0.4 MG 24 hr capsule Take 1 capsule (0.4 mg) by mouth Once per day. 30 capsule 2 02/17/20 24 Active amLODIPine (Norvasc) 5 MG tablet TAKE 1 TABLET (5 MG) BY MOUTH ONCE PER DAY. 90 tablet 1 08/05/19 25 Active amLODIPine (Norvasc) 5 MG tablet Take 1 tablet (5 mg) by mouth Once per day. 90 tablet 1 05/01/20 24 025 Discontinued Active Problems Problem Noted Date Diagnosed Date [...] referral in the system. Will send to [facility]. Please attach media from ECG done in [...] Encounters Date Type Department Care Team Description 08/04/2024 Refill [facility] [address] [place] [address] Marleen Jovel MD 07/31/2024 Refill [facility] [address] [place] [address] Marleen Jovel MD 07/20/2024 Orders Only [facility] External Provider, [facility] 07/18/2024 Orders Only GENERIC EXTERNAL DATA DEPARTMENT Provider, Generic External Data 07/07/2024 Orders Only [facility] External Provider, [facility] 06/22/2024 Orders Only [facility] External Provider, [facility] 06/19/2024 Orders Only [facility] External Provider, [facility] from Last 3 Months Immunizations Name Administration [...] of 2) 2014 COVID-19 Vaccine (3 - 2024-25 season) 2024 01/07/2021, 12/17/2020 RSV Patients and [...] EST Narrative 07/22/2024 3:25 PM EST ? [facility] ?[address] ?[place] [address] ? Ultrasound Report ? Signed ? Patient: Howard Junior ?MR#: [id number] ?? [id number] ? : 1965 ?Acct:[id number] ? Age/Sex: 59 / M ?ADM Date: 07/20/24 ? Loc: HO.US ? Attending Dr: Kaley PEARL-BC ? Ordering Physician: Kaley Burgos-BC ?? Date of Service: 07/20/24 ?? Procedure(s): US bladder ?? Accession Number(s): [id number] ? cc: Kaley Burgos-BC; Marleen Jovel MD ? CLINICAL HISTORY: NOCTURIA [...] DD/ 1524 ? TD/TT: 07/22/24 1524 ? Toddler Caregiver: ? Procedure Note Kavita, Image - 07/22/2024 [place] [address] Ultrasound Report Signed Patient: Howard JuniorMR#: [id number] : 1965Acct:[id number] Age/Sex: 59 / MADM Date: 07/20/24 Loc: . Attending Dr: Kaley MIGUEL Ordering Physician: Kaley Burgos Date of Service: 07/20/24 Procedure(s): US bladder Accession Number(s): [id number] cc: Kaley Burgos; Marleen Jovel MD CLINICAL [...] 07/22/24 1524 DD/ 1524 TD/TT: 07/22/24 1524 Toddler Caregiver: us [facility] External Provider IMG US PROCEDURES Edited Result - Final * (ABNORMAL) PSA, Free and Total (07/18/2024 12:25 PM EST) PSA, Total 4.1(A) < OR = 4.0 ng/mL [facility] PSA % Free 17(A) >25 % (calc) [facility] Comment: PSA(ng/mL) ?Free PSA(%) ? [...] ? 9 ? (3)Bonifacio et al.:ZAYDA 277: 9744-8529 (1996) ? (4)Bonifacio et al.:ZAYDA 279: 1701-2702 (1997)(x)These estimates vary with age, ethnicity, family [...] presence or absence ofdisease.THIS TEST WAS PERFORMED AT:[employer] [place] [address] ??[phone] SANCHEZ MD PSA, Free 0.7 ng/mL [facility] 07/18/2024 12:2 5 PM EST 07/18/2024 12:25 PM EST us Generic External Data Provider LAB BLOOD ORDERAB LES Final Result [facility] [address] [place], [place] [phone] * (ABNORMAL) PSA, Total With Reflex to PSA, Free (07/18/2024 10:47 AM EST) PSA,Total (Free>4and<10) 4.06(H) 0.00 - 4.00 ng/mL [facility] Comment:PSA methodology: Abb carmela Jackson i ChemiluminescentMicroparticle Immunoassay (CMIA) 07/18/2024 10:4 7 AM EST 07/18/2024 10:47 AM EST us Generic External Data Provider LAB BLOOD ORDERAB LES Final Result [facility] [address] [place] [address] [phone] * US RENAL BI (07/07/2024 4:29 PM EST) Anatomical Region Laterality Modality Abdomen Ultrasound 07/07/2024 4:29 PM EST Narrative 07/08/2024 1:30 PM EST ? [facility] ?[address] ?[place] [address] ? Ultrasound Report ? Signed ? Patient: Howard Junior ?MR#: [id number] ?? [id number] ? : 1965 ?Acct:[id number] ? Age/Sex: 59 / M ?ADM Date: 07/07/24 ? Loc: HO.US ? Attending Dr: Kaley MIGUEL ? Ordering Physician: Kaley Burgos ?? Date of Service: 07/07/24 ?? Procedure(s): US renal BI ?? Accession Number(s): [id number] ? cc: Kaley Burgos; Marleen Jovel MD [...] DD/ 1629 ? TD/TT: 07/07/24 1642 ? Toddler Caregiver: ? Procedure Note Kavita, Farzana - 07/08/[address] [address] Ultrasound Report Signed Patient: Howard JuniorMR#: [id number] : 1965Acct:[id number] Age/Sex: 59 / MADM Date: 07/07/24 Loc: HO.US Attending Dr: Kaley MIGUEL Ordering Physician: Kaley Burgos Date of Service: 07/07/24 Procedure(s): US renal BI Accession Number(s): [id number] cc: Kaley Burgos; Marleen Jovel MD EXAMINATION: [...] 07/08/24 1327 DD/ 1629 TD/TT: 07/07/24 1642 Toddler Caregiver: [facility] External Provider IMG US PROCEDURES Final Result * SARS-CoV-2 RNA, Influenza A/B, and RSV RNA, Ql NAAT (06/22/2024 3:40 PM EST) Influenza A PCR NEGATIVE Negative [facility] Influenza B PCR NEGATIVE Negative [facility] Resp Syncy Virus RNA Qual PCR NEGATIVE Negative [facility] SARS COV2 PCR NEGATIVE Negative [facility] Comment:All test results [...] use by authorized laboratories.Testing performed on the [employer] GeneXpert utilizingreal-time RT-PCR.All SARS CoV2 and positive influenza A/B results arereported to [facility]. 06/22/2024 3:40 PM EST 06/22/2024 3:43 PM EST us Generic External Data Provider LAB MICROBIOLOGY - GENERAL ORDERABLES Final Result [facility] [address] [place] [address] [phone] * XR Chest 2 Views (06/22/2024 1:57 PM EST) Anatomical Region Laterality Modality Chest Radiographic Vernell ging 06/22/2024 1:57 PM EST Narrative 06/22/2024 2:31 PM EST ? [facility] ?[address] ?[place] [address] ?XRay Report ? Signed ? Patient: Carson OrtizHoward roberts ?MR#: [id number] ?? [id number] ? : 1965 ?Acct:[id number] ? Age/Sex: 59 / M ?ADM Date: 06/22/24 ? Loc: HO.ED ? Attending Dr: ? Ordering Physician: Misbah Santillan ?? Date of Service: 06/22/24 ?? Procedure(s): XR chest 2V ?? Accession Number(s): [id number] ? cc: Misbah Santillan; Marleen Jovel MD [...] MD in OV> ?06/22/24 1428 ? DD/ 1437 ? TD/TT: 06/22/24 1407 ? Toddler Caregiver: MSM ? Procedure Note Kavita, Image - 06/22/[address] [address] XRay Report Signed Patient: Howard JuniorMR#: [id number] : 1965Acct:[id number] Age/Sex: 59 / MADM Date: 06/22/24 Loc: HO.ED Attending Dr: Ordering Physician: Misbah Santillan Date of Service: 06/22/24 Procedure(s): XR chest 2V Accession Number(s): [id number] cc: Misbah Santillan; Marleen Jovel MD EXAMINATION: [...] 06/22/24 1428 DD/ 1357 TD/TT: 06/22/24 1407 Toddler Caregiver: NICANOR [facility] External Provider IMG XR PROCEDURES Final Result * Stress test with myocardial perfusion (06/19/2024 10:15 AM EST) 06/19/2024 10:1 5 AM EST Narrative [facility] - 06/23/2024 9:06 AM EST ? [facility] ?[address] ?[place] [address] ?Nuclear Medicine Report ? Signed ? Patient: Alli Ortzi,Howard ?MR#: [id number] ?? [id number] ? : 1965 ?Acct:[id number] ? Age/Sex: 59 / M ?ADM Date: 12/27/24 ? Loc: HO.CARD ? Attending Dr: Sherlyn LAROSE ? Ordering Physician: Sherlyn Duarte ?? Date of Service: 06/19/24 ?? Procedure(s): NM cardiolite stress test ?? Accession Number(s): [id number] ? cc: Sherlyn Duarte; Marleen Jovel MD [...] by Jorge Martin MD in OV> ?06/23/24 09 ? DD/ 1015 ? TD/TT: 06/22/24 1445 ? Toddler Caregiver: ? Procedure Note Donotuseinterpreter, Image - 06/23/2024 [place] [address] Nuclear Medicine Report Signed Patient: Howard JuniorMR#: [id number] : 1965Acct:[id number] Age/Sex: 59 / MADM Date: 06/19/24 Loc: SEKOU Attending Dr: Sherlyn LAROSE Ordering Physician: Sehrlyn Duarte Date of Service: 06/19/24 Procedure(s): NM cardiolite stress test Accession Number(s): [id number] cc: Sherlyn Duarte; Marleen Jovel MD Lexiscan [...] 06/23/24 0902 DD/ 1015 TD/TT: 06/22/24 1445 Toddler Caregiver: [facility] External Provider CV STRE SS PROCEDURES Edited Result - Final Performing Organization Address [facility]/ZIP Co de Phone Number [facility] [address] [place] [phone] * Hepatitis C Antibody with Reflex to HCV, RNA, Quantitative, Real-Time PCR (10/28/2023 10:49 AM EDT) Hepatitis C Antibody Nonreactive Nonreactive [facility] Comment:Antibodies to HCV no t detected; does not exclude early acuteHCV infection. Blood Venous blood specimen / Unknown 10/28/2023 10:49 AM EDT 10/28/2023 2:07 PM EDT Marleen Jovel MD LAB BLOOD ORDERABLES Final Re sult Performing Organization Address [facility]/ZIP Co de Phone Number [facility] [address] [place] [phone] * HIV-1/2 Antigen and Antibodies, Fourth Generation, with Reflexes (10/28/2023 10:49 AM EDT) HIV AB/AG Nonreactive Nonreactive [facility] Comment:HIV-1 p24 Ag and/or HIV-1/HIV-2 Ab not detected.A test result that is nonreactive does not exclude thepossibility of exposure to or infection with HIV-1 and/orHIV-2. Nonreactive results in this assay for individualswith prior exposure to HIV-1 and/or HIV-2 may be due toantigen and antibody levels that are below the limit ofdetection of this assay.The [employer] HIV Ag/Ab Combo assay result andsupplemental assay results should be interpreted inconjunction with the patient's clinical presentation,history and other laboratory results. If the results areinconsistent with clinical evidence, additional testing issuggested to confirm the result. Blood Venous blood specimen / Unknown 10/28/2023 10:49 AM EDT 10/28/2023 2:07 PM EDT us Marleen Jovel MD LAB BLOOD ORDERABLES Final Re sult [facility] [address] [place] [address] [phone] * (ABNORMAL) Lipid Panel, Standard (10/28/2023 10:49 AM EDT) Triglycerides 62 <150 mg/dL [facility] Comment:Desirable Triglyceri de: less than 150 mg/dLBorderline High Triglyceride 150-199 mg/dLHigh Triglyceride: 200-499 mg/dLVery High Triglyceride: greater than or equal to 5OO mg/dL Cholesterol 174 <200 mg/dL [facility] Comment:Desirable Cholestero l: less than 200 mg/dLBorderline High Cholesterol: 200-239 mg/dLHigh Cholesterol: greater than 239 mg/dL LDL Cholesterol Calculated 107(H) <100 mg/dL [facility] Comment:Desirable LDL: less than 100 mg/dLNear Optimal/Above Optimal LDL: 110- 129 mg/dLBorderline High LDL: 130-159 mg/dLHigh LDL: 160-189 mg/dLVery High LDL: greater than or equal to 190 mg/dL HDL Cholesterol 55 >40 mg/dL [facility] Comment:Desirable HDL: great er than 40 mg/dL Note: This HDL assay may give artificially low results in patients with liver disease. Blood Venous blood specimen / Unknown 10/28/2023 10:49 AM EDT 10/28/2023 2:07 PM EDT us Marleen Jovel MD LAB BLOOD ORDERABLES Final Re sult [facility] [address] [place] [address] [phone] from Last 3 Months or Most Recently Relevant to Health Maintenance Insurance [facility] Care Teams Head Of Mathematics Relationship Specialty Start Date End Date Marleen Jovel MD [address] [place] [address] PCP - General Family Medicine 10/28/23
--- OUTSIDE RECORDS SUMMARY | 2024-08-27 14:02 | XMS_ITS | Encounter Summary ---
Author Organization [employer] Address [address] [facility] 7t [place] [address] Care Team Providers Care Risk Tech Name Role Phone Marleen Jovel MD Primary Care Provider [phone] Reason for Visit * Reason Comments Med Refill Encounter Details Date Type Department Care Team ([facility] st Contact Info) Description 08/04/2024 Refill [facility] [address] [place], [place] [phone] Marleen Jovel MD [address] [place] [address] Social History Tobacco Use Types Packs/Day Years [...] on file documented as of this encounter Visit Diagnoses Not on filedocumented in this encounter Additional Health Concerns Assessment Noted Time PHQ-9 Depression Total Score: 0 10/28/19 9:20 AM EDT documented as of this encounter Care Teams Risk Tech Relationship Specialty Start Date End Date Marleen Jovel MD [address] [place] [phone] PCP - General Family Medicine 10/28/23 documented as of this encounter
--- OUTSIDE RECORDS SUMMARY | 2024-08-27 14:02 | XMS_ITS | Clinical Summary ---
Author Organization [facility] Address [address] [place] [address] Care Team Providers Care Recruiting Internship Name Role Phone Unavailable Primary Care Provider Unavailabl e Social History Tobacco Use Types Packs/Day Years Used Date Smoking Tobacco: Never Assessed Sex and Gender Information Value Date Recorded Sex Assigned at Not on file Legal Sex Male 4:35 AM EST Gender Identity Not on file Sexual Orientation Not on file Plan of Treatment Health Maintenance Due Date Last Done Comments DTaP,Tdap,and Td Vaccines (1 - Tdap) 1983 Pneumococcal Vaccine: 50+ Ye ars (1 of 1 - PCV) 2014 Zoster Vaccines (1 of 2) 2014 Cholesterol [...] patient's age to complete this topic Meningococcal B Vacine Aged Out No lo nger eligible based on patient's age to complete [...]
--- OUTSIDE RECORDS SUMMARY | 2024-08-27 14:02 | XMS_ITS | Encounter Summary ---
Author Organization [employer] Address [address] [facility] 7[address] [place] [address] Care Team Providers Care Salary And Wage Administrator Name Role Phone Marleen Jovel MD Primary Care Provider [phone] Reason for Visit * Reason Comments Med Refill Encounter Details Date Type Department Care Team ([facility] st Contact Info) Description 07/31/2024 Refill [facility] [address] [place], [place] [phone] Marleen Jovel MD [address] [place] [address] Social History Tobacco Use Types Packs/Day Years [...] documented as of this encounter Care Teams Salary And Wage Administrator Relationship Specialty Start Date End Date Marleen Jovel MD [address] [place] [phone] PCP - General Family Medicine 10/28/23 documented as of this encounter
== END 2024-08-27 11:35 | disposition home or self-care (01) ==
PROVIDERS: PCP Family Medicine; Visit Provider Surgery
DX: K42.9 Umbilical hernia without obstruction or gangrene (principal)
CPT/HCPCS: 99212

== ENCOUNTER → 2024-08-27 11:24 | Outpatient (BNVA) | payer OTHER, SELFPAY | PROVIDERS: PCP Family Medicine; Visit Provider Surgery | DX: Z48.815 Encounter for surgical aftercare following surgery on the digestive system (principal); Z98.890 Other specified postprocedural states | CPT/HCPCS: 99212 ==

== ENCOUNTER 2024-09-23 09:37 | Outpatient (REF) | payer OTHER, SELFPAY ==
--- OUTSIDE RECORDS SUMMARY | 2024-09-23 10:50 | XMS_ITS | Clinical Summary ---
Author Organization [employer] Address [address] [facility] [address] [place] [address] Care Team Providers Care Merchandise For Resale Purchasing Agent Name Role Phone Marleen Jovel MD Primary Care Provider [phone] Allergies No known active allergies Medications tiZANidine (Zanaflex) 2 MG capsule Take 1 capsule (2 mg) by mouth every 8 (eight) hours if needed for muscle spasms. 90 capsule 1 024 Active cetirizine (ZyrTEC) 10 MG tablet Take 1 tablet (10 mg) by mouth Once per day. 90 tablet 1 024 Active Additional Information Patient not taking.Reported on 09/16/2024 Blood Pressure kit 1 Units Once per day. 1 kit 024 Active cholecalciferol (Vitamin D-3) 50 MCG (2000 UT) capsule Take 1 capsule (50 mcg) by mouth Once per day. 120 capsule 3 024 Active Additional Information Patient not taking.Reported on 09/16/2024 betamethasone valerate (Valisone) 0.1 % ointment Apply topically if needed in the morning and at bedtime (dryness). 45 g 024 Active tamsulosin (Flomax) 0.4 MG 24 hr capsule Take 1 capsule (0.4 mg) by mouth Once per day. 30 capsule 2 024 Active Additional Information Patient not taking.Reported on 09/16/2024 amLODIPine (Norvasc) 5 MG tablet TAKE 1 TABLET (5 MG) BY MOUTH ONCE PER DAY. 90 tablet 1 025 Active fluticasone furoate (Arnuity Ellipta) 100 MCG/ACT inhalerIndication s:Rhinosinusitis Inhale 1 puff Once per day. Rinse mouth with water after use to reduce aftertaste and incidence of candidiasis. Do not swallow. 1 each 025 2025 Active albuterol 108 (90 Base) MCG/ACT inhalerIndication s:Rhinosinusitis Inhale 2 puffs every 4 (four) hours if needed for wheezing or shortness of breath. 18 g 2 025 2025 Active cetirizine (ZyrTEC) 10 MG tabletIndications :Rhinosinusitis,A llergic conjunctivitis of both eyes Take 1 tablet (10 mg) by mouth Once per day. 30 tablet 2025 Active Ketotifen Fumarate 0.035 % solutionIndicatio ns:Allergic conjunctivitis of both eyes Administer 1 drop into affected eye(s) 2 times daily. 10 mL Active albuterol 108 (90 Base) MCG/ACT inhaler Inhale 2 puffs every 4 (four) hours if needed for wheezing or shortness of breath. 18 g 2 024 2024 Discontinued(R eorder (will not trigger notification to Pharmacy)) fluticasone furoate (Arnuity Ellipta) 100 MCG/ACT inhaler Inhale 1 puff Once per day. Rinse mouth with water after use to reduce aftertaste and incidence of candidiasis. Do not swallow. 1 each 024 2024 Discontinued(R eorder (will not trigger notification to Pharmacy)) Ketotifen Fumarate 0.035 % solution Administer 1 drop into affected eye(s) 2 times daily. 10 mL 024 2024 Discontinued(R eorder (will not trigger notification to Pharmacy)) Active Problems Problem Noted Date Diagnosed Date [...] referral in the system. Will send to [facility]. Please attach media from ECG done in [...] Encounters Date Type Department Care Team Description 09/23/2024 Telephone [facility] [address] [place] [address] Marleen Jovel MD Medication Question 09/17/2024 10:00 AM EDT Office Visit [facility] [address] [place] [address] Nhung Bearden MD Essential hypertension (Primary Dx); Umbilical hernia without obstruction and without gangrene; Rhinosinusitis; Allergic conjunctivitis of both eyes 09/17/2024 Travel 08/04/2024 Refill [facility] [address] [place] [address] Marleen Jovel MD 07/31/2024 Refill [facility] [address] [place] [address] Marleen Jovel MD 07/20/2024 Orders Only [facility] External Provider, [facility] 07/18/2024 Orders Only GENERIC EXTERNAL DATA DEPARTMENT Provider, Generic External Data 07/07/2024 Orders Only [facility] External Provider, [facility] from Last 3 Months Immunizations Name Administration Dates Next Due Hep B, adult 12/18/2023,11/20/2023 Influenza Injectable Quadriv alant Preservative Free IIV4 MDCK 04/01/2018 Influenza, IIV3, injectable 05/01/2024,,04/05/2015 Zoster, Recombinant 09/17/2024 Family History Medical History Relation Name Comments [...] Sign Reading Time Taken Comments Blood Pressure 115/80 09/17/2024 9:49 AM EDT Pulse 76 09/17/2024 9:49 AM EDT Temperature 36.4 ??C (97.6 ??F) 09/17/2024 9:49 AM ED T Respiratory Rate 20 09/17/2024 9:49 AM EDT Oxygen Saturation 98% 09/17/2024 9:49 AM EDT Inhaled Oxygen Concentration - - Weight 96.9 kg (213 lb 9.6 oz) 09/17/2024 9:49 A M EDT Height 170 cm (5' 6.93 ) 09/17/2024 9:49 AM EDT Body Mass Index 33.52 09/17/2024 9:49 AM EDT Plan of Treatment Upcoming Encounters Date Type Department Care Team (Late st Contact Info) Description 10/15/2024 3:00 PM EDT Clinical Support [facility] [address] [place] [address] 11/26/2024 11:00 AM EDT Nurse Only [facility] [address] [place] [address] Health Maintenance Due Date Last Done Comments CT Colonography 1965 Colonoscopy 1965 Colorectal Cancer Screening 1965 FIT DNA/Cologuard 1965 FIT 1965 FOBT 1965 Sigmoidoscopy 1965 Alcohol/Substance Use Screening 1976 DTaP/Tdap/Td Vaccines (1 - Tdap) 1983 Pneumococcal Vaccine: 50+ Years (1 of 2 - PCV) 1983 COVID-19 Vaccine ( - season) 2024 01/07/2021, 12/17/2020 RSV Patients and Patients Aged 60 years or older (1 - Risk 60-74 years 1-dose series) 2024 Hepatitis B Vaccines (3 of 3 - 19+ 3-dose series) 05/22/2024 12/18/2023, 11/20/2023 Depression Screening 10/27/2024 10/28/2023, 10/28/19 SDOH Screening 10/27/2024 10/28/2023 Zoster Vaccines (2 of 2) 11/12/2024 09/17/2024 Tobacco Screening 05/01/2025 05/01/2024 Lipid Panel 10/27/2028 10/28/2023 HIV Screening Completed 10/28/2023 Hepatitis C Screening Completed 10/28/2023 Influenza Vaccine Completed 05/01/2024, , 04/01/2018, Additional history exists HIB Vaccines Aged Out [...] RENAL BI Routine 07/07/2024 4:29 PM EST HEPATITIS C AB W/REFL TO HCV [...] 3:25 PM EST ? [facility] ?[address] ?[place] [address] ? Ultrasound Report ? Signed ? Patient: Howard Junior ?MR#: [id number] ?? [id number] ? : 1965 ?Acct:[id number] ? Age/Sex: 59 / M ?ADM Date: 07/20/24 ? Loc: HO.US ? Attending Dr: Kaley MIGUEL ? Ordering Physician: Kaley Burgos ?? Date of Service: 07/20/24 ?? Procedure(s): US bladder ?? Accession Number(s): [id number] ? cc: Kaley Burgos; Marleen Jovel MD [...] DD/ 1524 ? TD/TT: 07/22/24 1524 ? General Office Associate: ? Procedure Note Farzana Walls - 07/22/[address] [address] Ultrasound Report Signed Patient: Howard Junior#: [id number] : 1965Acct:[id number] Age/Sex: 59 / MADM Date: 07/20/24 Loc: HO.US Attending Dr: Kaley MIGUEL Ordering Physician: Kaley Burgos Date of Service: 07/20/24 Procedure(s): US bladder Accession Number(s): [id number] cc: Kaley Burgos; Marleen Jovel MD CLINICAL [...] 07/22/24 1524 DD/ 1524 TD/TT: 07/22/24 1524 General Office Associate: us [facility] External Provider IMG US PROCEDURES Edited Result - Final * (ABNORMAL) PSA, Free and Total (07/18/2024 12:25 PM EST) PSA, Total 4.1(A) < OR = 4.0 ng/mL [facility] PSA % Free 17(A) >25 % (calc) [facility] Comment: PSA(ng/mL) ?Free PSA(%) ? Estimated(x) [...] = 30 ?93 ? 9 ? (3)Bonifacio wright al.:ZAYDA 277: 8278-8336 (1996) ? (4)Bonifacio wright al.:ZAYDA 279: 2034-5827 (1997)(x)These estimates vary with age, ethnicity, family [...] presence or absence ofdisease.THIS TEST WAS PERFORMED AT:[facility] [place] [address] ??[phone] SANCHEZ MD PSA, Free 0.7 ng/mL [facility] 07/18/2024 12:2 5 PM EST 07/18/2024 12:25 PM EST Generic External Data Provider LAB BLOOD ORDERAB LES Final Result Performing Organization Address [facility] de Phone Number [facility] [address] [place] [phone] * (ABNORMAL) PSA, Total With Reflex to PSA, Free (07/18/2024 10:47 AM EST) PSA,Total (Free>4and<10) 4.06(H) 0.00 - 4.00 ng/mL [facility] Comment:PSA methodology: Abb carmela Jackson i ChemiluminescentMicroparticle Immunoassay (CMIA) 07/18/2024 10:4 7 AM EST 07/18/2024 10:47 AM EST us Generic External Data Provider LAB BLOOD ORDERAB LES Final Result Performing Organization Address [facility] Co de Phone Number [facility] [address] [place] [phone] * US RENAL BI (07/07/2024 4:29 PM EST) Anatomical Region Laterality Modality Abdomen Ultrasound 07/07/2024 4:29 PM EST Narrative 07/08/2024 1:30 PM EST ? [facility] ?[address] ?[place] [address] ? Ultrasound Report ? Signed ? Patient: Alli Ortiz,Howard ?MR#: [id number] ?? [id number] ? : 1965 ?Acct:[id number] ? Age/Sex: 59 / M ?ADM Date: 07/07/24 ? Loc: HO.US ? Attending Dr: Kaley MIGUEL ? Ordering Physician: Kaley Burgos ?? Date of Service: 07/07/24 ?? Procedure(s): US renal BI ?? Accession Number(s): [id number] ? cc: Kaley Burgos; Marleen Jovel MD [...] Blandon MD ??07/08/2024 01:27 PM EST RP ?? Workstation: [id number] ? Dictated By: ?Alexandro Blandon MD ? Signed By: ?<Electronically signed by Alexandro Blandon MD in OV> ?07/08/24 1327 ? DD/ 1629 ? TD/TT: 07/07/24 1642 ? General Office Associate: ? Procedure Note Donotuseinterpreter, Image - 07/08/[address] [address] Ultrasound Report Signed Patient: Howard JuniorMR#: [id number] : 1965Acct:[id number] Age/Sex: 59 / MADM Date: 07/07/24 Loc: HO.US Attending Dr: Kaley MIGUEL Ordering Physician: Kaley Burgos Date of Service: 07/07/24 Procedure(s): US renal BI Accession Number(s): [id number] cc: Kaley Burgos; Marleen Jovel MD EXAMINATION: [...] 07/08/24 1327 DD/ 1629 TD/TT: 07/07/24 1642 General Office Associate: [facility] External Provider IMG US PROCEDURES Final Result * Hepatitis C Antibody with Reflex to HCV, RNA, Quantitative, Real-Time PCR (10/28/2023 10:49 AM EDT) Hepatitis C Antibody Nonreactive Nonreactive [facility] Comment:Antibodies to HCV no t detected; does not exclude early acuteHCV infection. Blood Venous blood specimen / Unknown 10/28/2023 10:49 AM EDT 10/28/2023 2:07 PM EDT Marleen Jovel MD LAB BLOOD ORDERABLES Final Re sult [facility] [address] [place] [phone] * HIV-1/2 Antigen and Antibodies, Fourth Generation, with Reflexes (10/28/2023 10:49 AM EDT) HIV AB/AG Nonreactive Nonreactive [facility] Comment:HIV-1 p24 Ag and/or HIV-1/HIV-2 Ab not detected.A test result that is nonreactive does not exclude thepossibility of exposure to or infection with HIV-1 and/orHIV-2. Nonreactive results in this assay for individualswith prior exposure to HIV-1 and/or HIV-2 may be due toantigen and antibody levels that are below the limit ofdetection of this assay.The [id number] HIV Ag/Ab Combo assay result andsupplemental assay results should be interpreted inconjunction with the patient's clinical presentation,history and other laboratory results. If the results areinconsistent with clinical evidence, additional testing issuggested to confirm the result. Blood Venous blood specimen / Unknown 10/28/2023 10:49 AM EDT 10/28/2023 2:07 PM EDT us Marleen Jovel MD LAB BLOOD ORDERABLES Final Re sult Performing Organization Address [facility]/ZIP Co de Phone Number [facility] [address] [place] [phone] * (ABNORMAL) Lipid Panel, Standard (10/28/2023 10:49 AM EDT) Triglycerides 62 <150 mg/dL [facility] Comment:Desirable Triglyceri de: less than 150 mg/dLBorderline High Triglyceride 150-199 mg/dLHigh Triglyceride: 200-499 mg/dLVery High Triglyceride: greater than or equal to 5OO mg/dL Cholesterol 174 <200 mg/dL [facility] Comment:Desirable Cholestero l: less than 200 mg/dLBorderline High Cholesterol: 200-239 mg/dLHigh Cholesterol: greater than 239 mg/dL LDL Cholesterol Calculated 107(H) <100 mg/dL [facility] Comment:Desirable LDL: less than 100 mg/dLNear Optimal/Above Optimal LDL: 110- 129 mg/dLBorderline High LDL: 130-159 mg/dLHigh LDL: 160-189 mg/dLVery High LDL: greater than or equal to 190 mg/dL HDL Cholesterol 55 >40 mg/dL [facility] Comment:Desirable HDL: great er than 40 mg/dL Note: This HDL assay may give artificially low results in patients with liver disease. Blood Venous blood specimen / Unknown 10/28/2023 10:49 AM EDT 10/28/2023 2:07 PM EDT us Marleen Jovel MD LAB BLOOD ORDERABLES Final Re sult Performing Organization Address [facility]/ZIP Co de Phone Number [facility] [address] [place] [phone] from Last 3 Months or Most Recently Relevant to Health Maintenance Insurance [facility] Care Teams Merchandise For Resale Purchasing Agent Relationship Specialty Start Date End Date Marleen Jovel MD [address] [place] [address] PCP - General Family Medicine 10/28/23
--- OUTSIDE RECORDS SUMMARY | 2024-09-23 10:50 | XMS_ITS | Encounter Summary ---
Author Organization [employer] Address [address] [place] [address] Care Team Providers Care Fish Processing Supervisor Name Role Phone Marleen Jovel MD Primary Care Provider Reason for Visit * Reason Onset Date Comments Medication Question 09/23/2024 Encounter Details Date Type Department Care Team ([facility] Contact Info) Description 09/23/2024 Telephone [facility] [address] [place], [place] [phone] Marleen Jovel MD [address] [place] [address] Medication Question Social History Tobacco Use Types Packs/Day Years [...] AM EST documented as of this encounter Miscellaneous Notes * Telephone Encounter - Gifty Marcano - 09/23/2024 9:28 AM EDT Pt requesting to reevaluate bp meds, states bp has been high especially at bed time, states on and off headaches. Requesting call from nurse documented in this encounter Plan of Treatment Upcoming Encounters Date Type Department Care Team (Late st Contact Info) Description 10/15/2024 3:00 PM EDT Clinical Support [facility] [address] [place] [address] 11/26/2024 11:00 AM EDT Nurse Only [facility] [address] [place] [address] documented as of this encounter Visit Diagnoses Not on filedocumented in this encounter Additional Health Concerns Assessment Noted Time PHQ-9 Depression Total Score: 0 10/28/19 9:20 AM EDT documented as of this encounter Care Teams Fish Processing Supervisor Relationship Specialty Start Date End Date Marleen Jovel MD [address] [place] [address] PCP - General Family Medicine 10/28/23 documented as of this encounter
--- OUTSIDE RECORDS SUMMARY | 2024-09-23 10:50 | XMS_ITS | Clinical Summary ---
Author Organization [facility] ity Address [address] [place] [address] Care Team Providers Care Fern Cutter Name Role Phone Unavailable Primary Care Provider [...] - 2023-2 5 season) 2024 Influenza Vaccine (Season Ended) 2025 RSV Immunization Adult Patie nts (1 - 1-dose 75+ series) 2039 HIB [...]
--- OUTSIDE RECORDS SUMMARY | 2024-09-23 10:50 | XMS_ITS | Encounter Summary ---
Author Organization [employer] Address [address] [place] [address] Care Team Providers Care Soft Shoe Dancer Name Role Phone Marleen Jovel MD Primary Care Provider [phone] Reason for Visit * Reason Comments Med Refill Encounter Details Date Type Department Care Team ([facility] st Contact Info) Description 07/31/2024 Refill [facility] [address] [place], [place] [phone] Marleen Jovel MD [address] [place] [address] Social History Tobacco Use Types Packs/Day Years [...] as of this encounter Plan of Treatment Upcoming Encounters Date Type Department Care Team (Late st Contact Info) Description 10/15/2024 3:00 PM EDT Clinical Support [facility] [address] [place] [address] 11/26/2024 11:00 AM EDT Nurse Only [facility] [address] [place] [address] documented as of this encounter Visit Diagnoses Not on filedocumented in this encounter Additional Health Concerns Assessment Noted Time PHQ-9 Depression Total Score: 0 10/28/19 9:20 AM EDT documented as of this encounter Care Teams Soft Shoe Dancer Relationship Specialty Start Date End Date Marleen Jovel MD [address] [place] [address] PCP - General Family Medicine 10/28/23 documented as of this encounter
[2024-09-27 07:49] LABS: Metanephrine, Free 40 pg/mL (<=57); Normetanephrines, Free 130 pg/mL (<=148); Total Metanephrine, Free 170 pg/mL (<=205)
== END 2024-09-23 09:38 | disposition home or self-care (01) ==
LOC: HO.CHCLDS 09:37
PROVIDERS: Visit Provider Internal Medicine
DX: I10 Essential (primary) hypertension (principal)
CPT/HCPCS: 36415; 82088; 83835

== ENCOUNTER 2024-09-24 15:00 | Outpatient (REF) | payer OTHER, SELFPAY ==
--- NOTE | ~2024-09-24 | US_ITS ---
EXAMINATION: US BLADDER HISTORY: R35.1 - Nocturia COMPARISON: Comparison is made with the prior examination dated 07/20/2024. FINDINGS: Sonographic examination of the urinary bladder was performed before and after voiding. Before voiding, the urinary bladder measured 11.2 x 7.3 x 8.5, for an estimated volume of362 mL. After voiding, the urinary bladder measured 3.8 x 1.5 x 3.4, for an estimated volume of 10 mL. No intrinsic bladder abnormality is identified. Bilateral ureteral jets are identified. The prostate measures 3.1 x 3.4 x 4.3 cm. US/US bladder IMPRESSION: Unremarkable ultrasound of the urinary bladder. Post void bladder residual of 10 mL. Electronically signed by: Hussain Aguiar MD 09/25/2024 07:41 AM EDT
--- OUTSIDE RECORDS SUMMARY | 2024-09-24 16:31 | XMS_ITS | Encounter Summary ---
Author Organization [employer] Address [address] [place] [address] Care Team Providers Care Order Picker/Assembler Name Role Phone Marleen Jovel MD Primary Care Provider [phone] Reason for Visit * Reason Onset Date Comments Medication Question 09/23/2024 Encounter Details Date Type Department Care Team ([facility] Contact Info) Description 09/23/2024 Telephone [facility] [address] [place], [place] [phone] Marleen Jovel MD [address] [place] [address] Medication Question Social History Tobacco Use Types [...] Description 10/15/2024 3:00 PM EDT Clinical Support [facility] [address] [place] [address] 11/26/2024 11:00 AM EDT Nurse Only [facility] [address] [place] [address] documented as of this encounter Visit Diagnoses Not on filedocumented in this encounter Additional Health Concerns Assessment Noted Time PHQ-9 Depression Total Score: 0 10/28/19 9:20 AM EDT documented as of this encounter Care Teams Order Picker/Assembler Relationship Specialty Start Date End Date Marleen Jovel MD [address] [place] [address] PCP - General Family Medicine 10/28/23 documented as of this encounter
--- OUTSIDE RECORDS SUMMARY | 2024-09-24 16:31 | XMS_ITS | Clinical Summary ---
Author Organization [employer] Address [address] [facility] [address] 7[address] [place] [address] Care Team Providers Care Msws Name Role Phone Marleen Jovel MD Primary Care Provider [phone] Allergies No known active allergies Medications tiZANidine [...] referral in the system. Will send to [facility]. Please attach media from ECG done in [...] Type Department Care Team Description 09/23/2024 Telephone [facility] [address] [place] [address] Marleen Jovel MD Medication Question 09/17/2024 10:00 AM EDT Office Visit [facility] [address] [place] [address] Nhung Bearden MD Essential hypertension (Primary Dx); Umbilical hernia without obstruction and without gangrene; Rhinosinusitis; Allergic conjunctivitis of both eyes 09/17/2024 Travel 08/04/2024 Refill [facility] [address] [place] [address] Marleen Jovel MD 07/31/2024 Refill [facility] [address] [place] [address] Marleen Jovel MD 07/20/2024 Orders Only [facility] External Provider, [facility] 07/18/2024 Orders Only GENERIC EXTERNAL DATA DEPARTMENT Provider, Generic External Data 07/07/2024 Orders Only [facility] External Provider, [facility] from Last 3 Months Immunizations Name [...] Description 10/15/2024 3:00 PM EDT Clinical Support [facility] [address] [place] [address] 11/26/2024 11:00 AM EDT Nurse Only [facility] [address] [place] [address] Health Maintenance Due Date Last Done Comments [...] EST Narrative 07/22/2024 3:25 PM EST ? [facility] ?[address] ?[place] [address] ? Ultrasound Report ? Signed ? Patient: Howard Junior ?MR#: [id number] ?? [id number] ? : 1965 ?Acct:[id number] ? Age/Sex: 59 / M ?ADM Date: 07/20/24 ? Loc: HO.US ? Attending Dr: Kaley MIGUEL ? Ordering Physician: Kaley Burgos ?? Date of Service: 07/20/24 ?? Procedure(s): US bladder ?? Accession Number(s): [id number] ? cc: Kaley Burgos; Marleen Jovel MD [...] DD/ 1524 ? TD/TT: 07/22/24 1524 ? Engravings Polisher: ? Procedure Note Farzana Walls - 07/22/[address] [address] Ultrasound Report Signed Patient: Howard Junior#: [id number] : 1965Acct:[id number] Age/Sex: 59 / MADM Date: 07/20/24 Loc: HO.US Attending Dr: Kaley MIGUEL Ordering Physician: Kaley Burgos Date of Service: 07/20/24 Procedure(s): US bladder Accession Number(s): [id number] cc: Kaley Burgos; Marleen Jovel MD CLINICAL [...] 07/22/24 1524 DD/ 1524 TD/TT: 07/22/24 1524 Engravings Polisher: us [facility] External Provider IMG US PROCEDURES Edited Result - Final * (ABNORMAL) PSA, Free and Total (07/18/2024 12:25 PM EST) PSA, Total 4.1(A) < OR = 4.0 ng/mL [facility] PSA % Free 17(A) >25 % (calc) [facility] Comment: PSA(ng/mL) ?Free PSA(%) ? [...] ? 9 ? (3)Bonifacio wright al.:ZAYDA 277: 4567-6828 (1996) ? (4)Bonifacio wright al.:ZAYDA 279: 4354-4032 (1997)(x)These estimates vary with age, ethnicity, family [...] presence or absence ofdisease.THIS TEST WAS PERFORMED AT:[facility] [place] [address] ??[phone] SANCHEZ MD PSA, Free 0.7 ng/mL [facility] 07/18/2024 12:2 5 PM EST 07/18/2024 12:25 PM EST Generic External Data Provider LAB BLOOD ORDERAB LES Final Result Performing Organization Address [facility] de Phone Number [facility] [address] [place] [phone] * (ABNORMAL) PSA, Total With Reflex to PSA, Free (07/18/2024 10:47 AM EST) PSA,Total (Free>4and<10) 4.06(H) 0.00 - 4.00 ng/mL [facility] Comment:PSA methodology: Abb carmela Jackson i ChemiluminescentMicroparticle Immunoassay (CMIA) 07/18/2024 10:4 7 AM EST 07/18/2024 10:47 AM EST us Generic External Data Provider LAB BLOOD ORDERAB LES Final Result Performing Organization Address [facility] Co de Phone Number [facility] [address] [place] [phone] * US RENAL BI (07/07/2024 4:29 PM EST) Anatomical Region Laterality Modality Abdomen Ultrasound 07/07/2024 4:29 PM EST Narrative 07/08/2024 1:30 PM EST ? [facility] ?[address] ?[place] [address] ? Ultrasound Report ? Signed ? Patient: Alli Ortiz,Howard ?MR#: [id number] ?? [id number] ? : 1965 ?Acct:[id number] ? Age/Sex: 59 / M ?ADM Date: 07/07/24 ? Loc: HO.US ? Attending Dr: Kaley MIGUEL ? Ordering Physician: aKley Burgos ?? Date of Service: 07/07/24 ?? Procedure(s): US renal BI ?? Accession Number(s): [id number] ? cc: Kaley Burgos; Marleen Jovel MD [...] ??07/08/2024 01:27 PM EST RP ?? Workstation: [id number] ? Dictated By: ?Alexandro Blandon MD ? Signed By: ?<Electronically signed by Alexandro Blandon MD in OV> ?07/08/24 1327 ? DD/ 1629 ? TD/TT: 07/07/24 1642 ? Engravings Polisher: ? Procedure Note Donotuseinterpreter, Image - 07/08/[address] [address] Ultrasound Report Signed Patient: Howard JuniorMR#: [id number] : 1965Acct:[id number] Age/Sex: 59 / MADM Date: 07/07/24 Loc: HO.US Attending Dr: Kaley MIGUEL Ordering Physician: Kaley Burogs Date of Service: 07/07/24 Procedure(s): US renal BI Accession Number(s): [id number] cc: Kaley Burgos; Marleen Jovel MD EXAMINATION: [...] 07/08/24 1327 DD/ 1629 TD/TT: 07/07/24 1642 Engravings Polisher: [facility] External Provider IMG US PROCEDURES Final Result * Hepatitis C Antibody with Reflex to HCV, RNA, Quantitative, Real-Time PCR (10/28/2023 10:49 AM EDT) Hepatitis C Antibody Nonreactive Nonreactive [facility] Comment:Antibodies to HCV no t detected; does not exclude early acuteHCV infection. Blood Venous blood specimen / Unknown 10/28/2023 10:49 AM EDT 10/28/2023 2:07 PM EDT Marleen Jovel MD LAB BLOOD ORDERABLES Final Re sult [facility] [address] [place] [phone] * HIV-1/2 Antigen and Antibodies, Fourth Generation, with Reflexes (10/28/2023 10:49 AM EDT) HIV AB/AG Nonreactive Nonreactive [facility] Comment:HIV-1 p24 Ag and/or HIV-1/HIV-2 Ab not detected.A test result that is nonreactive does not exclude thepossibility of exposure to or infection with HIV-1 and/orHIV-2. Nonreactive results in this assay for individualswith prior exposure to HIV-1 and/or HIV-2 may be due toantigen and antibody levels that are below the limit ofdetection of this assay.The [employer] HIV Ag/Ab Combo assay result andsupplemental assay results should be interpreted inconjunction with the patient's clinical presentation,history and other laboratory results. If the results areinconsistent with clinical evidence, additional testing issuggested to confirm the result. Blood Venous blood specimen / Unknown 10/28/2023 10:49 AM EDT 10/28/2023 2:07 PM EDT us Marleen Jovel MD LAB BLOOD ORDERABLES Final Re sult Performing Organization Address [facility]/ZIP Co de Phone Number [facility] [address] [place] [phone] * (ABNORMAL) Lipid Panel, Standard (10/28/2023 10:49 AM EDT) Triglycerides 62 <150 mg/dL [facility] Comment:Desirable Triglyceri de: less than 150 mg/dLBorderline High Triglyceride 150-199 mg/dLHigh Triglyceride: 200-499 mg/dLVery High Triglyceride: greater than or equal to 5OO mg/dL Cholesterol 174 <200 mg/dL [facility] Comment:Desirable Cholestero l: less than 200 mg/dLBorderline High Cholesterol: 200-239 mg/dLHigh Cholesterol: greater than 239 mg/dL LDL Cholesterol Calculated 107(H) <100 mg/dL [facility] Comment:Desirable LDL: less than 100 mg/dLNear Optimal/Above Optimal LDL: 110- 129 mg/dLBorderline High LDL: 130-159 mg/dLHigh LDL: 160-189 mg/dLVery High LDL: greater than or equal to 190 mg/dL HDL Cholesterol 55 >40 mg/dL [facility] Comment:Desirable HDL: great er than 40 mg/dL Note: This HDL assay may give artificially low results in patients with liver disease. Blood Venous blood specimen / Unknown 10/28/2023 10:49 AM EDT 10/28/2023 2:07 PM EDT us Marleen Jovel MD LAB BLOOD ORDERABLES Final Re sult Performing Organization Address [facility]/ZIP Co de Phone Number [facility] [address] [place] [phone] from Last 3 Months or Most Recently Relevant to Health Maintenance Insurance [facility] Care Teams Msws Relationship Specialty Start Date End Date Marleen Jovel MD [address] [place] [address] PCP - General Family Medicine 10/28/23
--- OUTSIDE RECORDS SUMMARY | 2024-09-24 16:31 | XMS_ITS | Clinical Summary ---
Author Organization [facility] Address [address] [place] [address] Care Team Providers Care Day Habilitation Supervisor Name Role Phone Unavailable Primary Care Provider [...]
--- OUTSIDE RECORDS SUMMARY | 2024-09-24 16:31 | XMS_ITS | Encounter Summary ---
Author Organization [employer] Address [address] [place] [address] Care Team Providers Care Field Supervisor Name Role Phone Marleen Jovel MD Primary Care Provider [phone] Reason for Visit * Reason Comments Med Refill Encounter Details Date Type Department Care Team ([facility] st Contact Info) Description 07/31/2024 Refill [facility] [address] [place], [place] [phone] Marleen Jovel MD [address] [place] [address] Social History Tobacco Use Types Packs/Day Years [...] Description 10/15/2024 3:00 PM EDT Clinical Support [facility] [address] [place] [address] 11/26/2024 11:00 AM EDT Nurse Only [facility] [address] [place] [address] documented as of this encounter Visit Diagnoses Not on filedocumented in this encounter Additional Health Concerns Assessment Noted Time PHQ-9 Depression Total Score: 0 10/28/19 9:20 AM EDT documented as of this encounter Care Teams Field Supervisor Relationship Specialty Start Date End Date Marleen Jovel MD [address] [place] [address] PCP - General Family Medicine 10/28/23 documented as of this encounter
== END 2024-09-24 15:01 | disposition home or self-care (01) ==
LOC: HO.US 15:00
PROVIDERS: PCP Family Medicine; Visit Provider Nurse Practitioner Family
DX: R35.1 Nocturia (principal)
CPT/HCPCS: 76857

== ENCOUNTER → 2024-09-24 15:04 | Outpatient (BNV) | payer OTHER, SELFPAY | PROVIDERS: PCP Family Medicine; Visit Provider Radiology Diagnostic Radiology | DX: R39.14 Feeling of incomplete bladder emptying (principal) | CPT/HCPCS: 76857 ==

== ENCOUNTER 2024-09-28 15:17 | Outpatient (AMB) | payer OTHER, SELFPAY ==
--- NOTE | 2024-09-28 15:18 | A.OFFVIS_ITS ---
Vital Signs 09/28/24 15:22 Height 5 ft 7 in Weight 211 lb 10.3 oz BMI 33.1 BP 110/77 Blood Pressure Location Lt brachial Position Sitting Pulse 76 Intake Visit Reasons: Dysphagia Intake Note: Howard presents in the office as a new patient for Dysphagia. CC: States that he is having issues - states that he does not take all of his medications. No pains in the stomach but states the does have some constipation. When he eats he has issues with choking very badly. Believes he may have some acid reflux. Integrated Circuit Fabricator Required: No Allergies No Known Allergies Allergy (Verified 09/28/24 15:23) HPI Comments Details: 59 y.o M with PMH of obesity, MANASA, elevated PSA who is here for dysphagia. Pt accompanied by his sister. Reports 5-8 years of dysphagia that has gradually gotten worse. Mostly to solids, sometimes to liquids as well. Frequently chokes on food. No unintentional weight loss. Does not smoke or drink. No fam hx of esophageal or colon ca. Overdue on crc screening. Has not done stool based testing either. [facility] Medical History Abnormal EKG Arthritis Back pain Scoliosis Habitual snoring Bronchitis Asthma Nocturia GERD (gastroesophageal reflux disease) HTN (hypertension) Surgical History History of umbilical hernia repair (08/17/24) History of appendectomy H/O hand surgery Hx of hernia repair Hx of release of tendon Hx of bilateral inguinal hernia repair Social History Are you a primary day care attendant to a significant other at home: No Do you presently have visiting nurse or other home services: No Alcohol intake: current Alcohol intake frequency: a few times a week Patient Tobacco Use Status: Never used Tobacco Review of Systems Const All systems reviewed & are unremarkable except as noted in HPI and below Physical Exam Vital Signs: Last Vital Signs Pulse 76 09/28/24 15:22 BP 110/77 09/28/24 15:22 BMI result Body Mass Index 33.1 No apparent distress, obese Nonicteric Abdomen soft, nondistended Alert and oriented x3, normal gait Assessment & Plan Assessment & Plan (1) Dysphagia: Code(s): R13.10 - Dysphagia, unspecified Category: Medical (2) Colon cancer screening: Code(s): Z12.11 - Encounter for screening for malignant neoplasm of colon Category: Medical Plan Dysphagia DDx include dysmotility, EoE, web/stricture. Plan: - Barium swallow - EGD with dilation to be booked - Pt with recent anesth for umbilical hernia repair - mallampati 4 noted CRC screening Overdue. To be booked at the same time as EGD. Plan: - Pt requests miralax/gatorade prep Follow up after scopes Orders: Orders [place] barium swallow Today R13.10 - Dysphagia, unspecified Medications: New polyethylene glycol 3350 (Miralax) mix in 64 oz of gatorade the evening before the colonoscopy 238 grams PO ONCE 238 grams 0RF Coding Level of Care Code New Pt Level 4 (03160) Diagnoses Dysphagia R13.10 Colon cancer screening Z12.11
[2024-09-28 15:22] VITALS: BP 110/77; PULSE 76; BMI 33.1
--- OUTSIDE RECORDS SUMMARY | 2024-09-28 18:06 | XMS_ITS | Encounter Summary ---
Author Organization [employer] Address [address] [place] [address] Care Team Providers Care Indian Blanket Weaver Name Role Phone Marleen Jovel MD Primary Care Provider [phone] Reason for Visit * Reason Comments Med Refill Encounter Details Date Type Department Care Team ([facility] st Contact Info) Description 07/31/2024 Refill [facility] [address] [place], [place] [phone] Marleen Jovel MD [address] [place] [address] Social History Tobacco Use Types Packs/Day Years [...] Description 10/15/2024 3:00 PM EDT Clinical Support [facility] [address] [place] [address] 11/26/2024 11:00 AM EDT Nurse Only [facility] [address] [place] [address] documented as of this encounter Visit Diagnoses Not on filedocumented in this encounter Additional Health Concerns Assessment Noted Time PHQ-9 Depression Total Score: 0 10/28/19 9:20 AM EDT documented as of this encounter Care Teams Indian Blanket Weaver Relationship Specialty Start Date End Date Marleen Jovel MD [address] [place] [address] PCP - General Family Medicine 10/28/23 documented as of this encounter
--- OUTSIDE RECORDS SUMMARY | 2024-09-28 18:06 | XMS_ITS | Encounter Summary ---
Author Organization [employer] Address [address] [place] [address] Care Team Providers Care Chainsaw Mechanic Name Role Phone Marleen Jovel MD Primary Care Provider [phone] Encounter Details Date Type Department Care Team (Late st Contact Info) Description 09/24/2024 Orders Only [facility] External Provider, [facility] Social History Tobacco Use Types Packs/Day [...] Upcoming Encounters Date Type Department Care Team ([facility] st Contact Info) Description 10/15/2024 3:00 PM EDT Clinical Support [facility] [address] [place] [address] 11/26/2024 11:00 AM EDT Nurse Only [facility] [address] [place] [address] documented as of this encounter Procedures Procedure Name Priority Date/Time Associated Diagnosis Comments US BLADDER Routine 09/24/2024 3:17 PM EDT documented in this encounter Results * US BLADDER (09/24/2024 3:17 PM EDT) Anatomical Region Laterality Modality Abdomen Ultrasound 09/24/2024 3:17 PM EDT Narrative 09/25/2024 7:43 AM EDT ? [facility] ?[address] ?[place] [address] ? Ultrasound Report ? Signed ? Patient: Alli Ortiz,Howard ?MR#: [id number] ?? [id number] ? : 1965 ?Acct:[id number] ? Age/Sex: 59 / M ?ADM Date: 09/24/24 ? Loc: HO.US ? Attending Dr: Kaley ESPARZAP-BC ? Ordering Physician: Kaley BurgosP-BC ?? Date of Service: 09/24/24 ?? Procedure(s): US bladder ?? Accession Number(s): [id number] ? cc: Kaley Burgos CHURN DRILL OPERATOR-; Marleen Jovel MD ? EXAMINATION: ??US BLADDER ? HISTORY: R35.1 - Nocturia ? COMPARISON: Comparison is made with the prior examination dated ?? 07/20/2024. ? FINDINGS: ??Sonographic examination of the urinary bladder was performed ?? before and after voiding. Before voiding, the urinary bladder measured ?? 11.2 x 7.3 x 8.5, for an estimated volume of362 mL. ??After voiding, the ?? urinary bladder measured 3.8 x 1.5 x 3.4, for an estimated volume of 10 ?? mL. ??No intrinsic bladder abnormality is identified. ??Bilateral ?? ureteral jets are identified. The prostate measures 3.1 x 3.4 x 4.3 cm. ? US/US bladder ?? IMPRESSION: ?? Unremarkable ultrasound of the urinary bladder. Post void bladder ?? residual of 10 mL. ? Electronically signed by: ??Hussain Aguiar MD ??09/25/2024 07:41 AM EDT ? Dictated By: ?Hussain Aguiar MD ? Signed By: ?<Electronically signed by Hussain Aguiar MD in OV> ?09/25/2441 ? DD/ 1517 ? TD/TT: 09/24/24 1523 ? Funeral Pre Need Consultant: ? Procedure Note Farzana Walls - 09/25/2024 [place] [address] Ultrasound Report Signed Patient: Howard JuniorMR#: [id number] : 1965Acct:[id number] Age/Sex: 59 / MADM Date: 09/24/24 Loc: HO.US Attending Dr: Kaley MIGUEL Ordering Physician: Kaley Burgos Date of Service: 09/24/24 Procedure(s): US bladder Accession Number(s): [id number] cc: Kaley Burgos; Marleen Jovel MD EXAMINATION: US BLADDER HISTORY: R35.1 - Nocturia COMPARISON: Comparison is made with the prior examination dated 07/20/2024. FINDINGS: Sonographic examination of the urinary bladder was performed before and after voiding. Before voiding, the urinary bladder measured 11.2 x 7.3 x 8.5, for an estimated volume of362 mL. After voiding, the urinary bladder measured 3.8 x 1.5 x 3.4, for an estimated volume of 10 mL. No intrinsic bladder abnormality is identified. Bilateral ureteral jets are identified. The prostate measures 3.1 x 3.4 x 4.3 cm. US/US bladder IMPRESSION: Unremarkable ultrasound of the urinary bladder. Post void bladder residual of 10 mL. Electronically signed by: Hussain Aguiar MD 09/25/2024 07:41 AM EDT RP Dictated By: Hussain Aguiar MD Signed By: <Electronically signed by Hussain Aguiar MD in OV> 09/25/24 0741 DD/ 1517 TD/TT: 09/24/24 1523 Funeral Pre Need Consultant: [facility] External Provider IMG US PROCEDURES Final Result documented in this encounter Visit Diagnoses Not on filedocumented in this encounter Additional Health Concerns Assessment Noted Time PHQ-9 Depression Total Score: 0 10/28/19 24 9:20 AM EDT documented as of this encounter Care Teams Chainsaw Mechanic Relationship Specialty Start Date End Date Marleen Jovel MD [address] [place] [address] PCP - General Family Medicine 10/28/23 documented as of this encounter
--- OUTSIDE RECORDS SUMMARY | 2024-09-28 18:06 | XMS_ITS | Encounter Summary ---
Author Organization [employer] Address [address] [place] [address] Care Team Providers Care Strand And Binder Controller Name Role Phone Marleen Jovel MD Primary Care Provider [phone] Reason for Visit * Reason Onset Date Comments Medication Question 09/23/2024 Encounter Details Date Type Department Care Team ([facility] Contact Info) Description 09/23/2024 Telephone [facility] MED & PEDS [address] [place], [place] [phone] Marleen Jovel MD [address] [place] [address] Medication Question Social History Tobacco Use Types [...] 3:00 PM EDT Clinical Support [facility] MED & PEDS [address] [place] [address] 11/26/2024 11:00 AM EDT Nurse Only [facility] PED[facility] [address] [place] [address] documented as of this encounter Visit Diagnoses Not on filedocumented in this encounter Additional Health Concerns Assessment Noted Time PHQ-9 Depression Total Score: 0 10/28/19 9:20 AM EDT documented as of this encounter Care Teams Strand And Binder Controller Relationship Specialty Start Date End Date Marleen Jovel MD [address] [place] [address] PCP - General Family Medicine 10/28/23 documented as of this encounter
--- OUTSIDE RECORDS SUMMARY | 2024-09-28 18:06 | XMS_ITS | Clinical Summary ---
Author Organization [facility] ity Address [address] [place] [address] Care Team Providers Care Whipped Topping Mixer Name Role Phone Unavailable Primary Care Provider [...] age to complete this topic Meningococcal B Vaccine Aged Out No l onger eligible based on patient's age to complete [...]
--- OUTSIDE RECORDS SUMMARY | 2024-09-28 18:06 | XMS_ITS | Clinical Summary ---
Author Organization [employer] Address [address] [facility] 7t [place] [address] Care Team Providers Care Wood Cutter Name Role Phone Marleen Jovel MD Primary Care Provider [phone] Allergies No known active allergies Medications tiZANidine [...] referral in the system. Will send to [facility]. Please attach media from ECG [...] Encounters Date Type Department Care Team Description 09/24/2024 Orders Only [facility] External Provider, [facility] 09/23/2024 Orders Only [facility] [address] [place] [address] Nhung Bearden MD 09/23/2024 Telephone [facility] [address] [place] [address] Marleen Jovel MD Medication Question 09/17/2024 10:00 AM EDT Office Visit [facility] [address] [place] [address] Nhung Bearden MD Essential hypertension (Primary Dx); Umbilical hernia without obstruction and without gangrene; Rhinosinusitis; Allergic conjunctivitis of both eyes 09/17/2024 Travel 08/04/2024 Refill [facility] [address] [place] [address] Marleen Jovel MD 07/31/2024 Refill [facility] [address] [place] [address] Marleen Jovel MD 07/20/2024 Orders Only [facility] External Provider, [facility] 07/18/2024 Orders Only GENERIC EXTERNAL DATA DEPARTMENT Provider, Generic External Data 07/07/2024 Orders Only [facility] External Provider, [facility] from Last 3 Months Immunizations Name Administration [...] 3:00 PM EDT Clinical Support [facility] [address] [place] [address] 11/26/2024 11:00 AM EDT Nurse Only [facility] [address] [place] [address] Health Maintenance Due Date Last Done Comments CT Colonography 1965 Colonoscopy 1965 Colorectal Cancer Screening 1965 FIT DNA/Cologuard 1965 FIT 1965 FOBT 1965 Sigmoidoscopy 1965 Alcohol/Substance Use Screening 1976 DTaP/Tdap/Td Vaccines (1 - Tdap) 1983 Pneumococcal Vaccine: 50+ Years (1 of 2 - PCV) 1983 COVID-19 Vaccine (3 - season) 2024 01/07/2021, [...] US BLADDER Routine 09/24/2024 3:17 PM EDT METANEPHRINES, FRACT, FREE, LC/MS/MS, PLASMA Routine 09/23/2024 11:44 AM EDT ALDOSTERONE/PLASMA RENIN ACTIVITY RATIO, LC/MS/MS Routine 09/23/2024 11:44 AM EDT Essential hypertension US BLADDER Routine 07/22/2024 3:24 PM EST [...] to Health Maintenance Results * US BLADDER (09/24/2024 3:17 PM EDT) Only the most recent of2 resultswithin the time period is included. Anatomical Region Laterality Modality Abdomen Ultrasound 09/24/2024 3:17 PM EDT Narrative 09/25/2024 7:43 AM EDT ? [facility] ?[address] ?[place] [address] ? Ultrasound Report ? Signed ? Patient: Alli Ortiz,Howard ?MR#: [id number] ?? [id number] ? : 1965 ?Acct:[id number] ? Age/Sex: 59 / M ?ADM Date: 04/03/25 ? Loc: HO.US ? Attending Dr: Kaley MIGUEL ? Ordering Physician: Kaley Burgos ?? Date of Service: 09/24/24 ?? Procedure(s): US bladder ?? Accession Number(s): [id number] ? cc: Kaley Burgos; Marleen Jovel MD ? EXAMINATION: ??US BLADDER [...] signed by Hussain Aguiar MD in OV> ?09/25/24 0741 ? DD/ 1517 ? TD/TT: 09/24/24 1523 ? Recreation Therapy Aides Teacher: ? Procedure Note Farzana Walls - 09/25/2024 [place] [address] Ultrasound Report Signed Patient: Howard JuniorMR#: [id number] : 1965Acct:[id number] Age/Sex: 59 / MADM Date: 09/24/24 Loc: HO.US Attending Dr: Kaley MIGUEL Ordering Physician: Kaley Burgos Date of Service: 09/24/24 Procedure(s): US bladder Accession Number(s): [id number] cc: Kaley Burgos; Marleen Jovel MD EXAMINATION: [...] 09/25/24 0741 DD/ 1517 TD/TT: 09/24/24 1523 Recreation Therapy Aides Teacher: us [facility] External Provider IMG US PROCEDURES Final Result * Metanephrines, Fractionated, Free, LC/MS/MS, Plasma (09/23/2024 11:44 AM EDT) Metanephrine, Free 40 <=57 pg/mL [facility] Comment:This test was develo ped and its analytical performancecharacteristics have been determined by [employer] [place], [place]. It hasnot been cleared or approved by the U.S. Food and DrugAdministration. This assay has been validated pursuantto the CLIA regulations and is used for clinicalpurposes. Normetanephrine, Free 130 <=148 pg/mL [facility] Comment:This test was develo ped and its analytical performancecharacteristics have been determined by [employer] [place], [place]. It hasnot been cleared or approved by the U.S. Food and DrugAdministration. This assay has been validated pursuantto the CLIA regulations and is used for clinicalpurposes. Total, Free (MN+NMN) 170 <=205 pg/mL [facility] Comment: For additional information, please refer tohttp://education.[employer].Kionix/faq/MetFractFree(This link is being provided for informational/educatioinformational/educational purposes only.)Elevations >4-fold upper reference range: stronglysuggestive of a pheochromocytoma(1).Elevations >1- 4-fold upper reference range:significant but not diagnostic, may be due tomedications or stress. Suggest running 24 hr urinefractionated metanephrines and/or serum Chromagranin Afor confirmation.Reference:(1)Chau Krueger et al, Plasma Chromogranin Aor Urine Fractionated Metanephrines Follow-Up TestingImproves the Diagnostic Accuracy of Plasma FractionatedMetanephrines for Pheochromocytoma. The Journal ofClinical Endocrinology # Metabolism 93(1), 91-95, 2007.This test was developed and its analytical performancecharacteristics have been determined by [employer] [place], [place]. It hasnot been cleared or approved by the U.S. Food and DrugAdministration. This assay has been validated pursuantto the CLIA regulations and is used for clinicalpurposes.THIS TEST WAS PERFORMED AT:[facility] [place], [place] ??[address]JWMSLEZ W. MASON,MD,PHD 09/23/2024 11:4 4 AM EDT 09/23/2024 11:44 AM EDT us Nhung Bearden MD LAB BLOOD ORDERABLES Final Result [facility] [address] [place] [phone] * Aldosterone/Plasma Renin Activity Ratio, LC/MS/MS (09/23/2024 11:44 AM EDT) Aldosterone 4 see note ng/dL [facility] Comment:Unable to flag abnor mal result(s), please refer to reference range(s) below:Adult Reference Ranges for Aldosterone, LC/MS/MS: Upright 8:00 - 10:00 am < or = 28 ng/dL Upright 4:00 - 6:00 pm < or = 21 ng/dL Supine 8:00 - 10:00 am 3 - 16 ng/dLTHIS TEST WAS PERFORMED AT:[facility]KH[address] [place] [address]XGDNYCUMARÍA YORK MD,PHD Plasma Renin Activity 0.80 0.25 - 5.82 ng/mL/h [facility] Aldosterone/Renin Ratio 5.0 0.9 - 28.9 Ratio [facility] Comment:This test was develo ped and its analytical performancecharacteristics have been determined by [employer] [place], [place]. It hasnot been cleared or approved by the U.S. Food and DrugAdministration. This assay has been validated pursuantto the CLIA regulations and is used for clinicalpurposes.THIS TEST WAS PERFORMED AT:[facility] [id number] [place] [address]VHYOZYOMARÍA YORK MD,PHD Blood Venous blood specimen / Unknown 09/23/2024 11:44 AM EDT 09/23/2024 11:44 AM EDT us Nhung Bearden MD LAB BLOOD ORDERABLES Final Result [facility] [address] [place] [phone] * (ABNORMAL) PSA, Free and Total (07/18/2024 12:25 PM EST) PSA, Total 4.1(A) < OR = 4.0 ng/mL [facility] PSA % Free 17(A) >25 % (calc) [facility] Comment: PSA(ng/mL) ?Free PSA(%) ? Estimated(x) Probability ? of Cancer(as%)0-2.5 ?(*) ? Approx. 12.6-4.0(1) ? 0-27(2) ? 24(3)4.1-10(4) ?0-10 ?56 ? 11-15 ? 28 ? 16-20 ? 20 ? 21-25 ? 16 ? >or =26 ? 8>10(+) ? N/A ?>50References:(1)Guevara:Urology 60: 469-474 (2002) ? (2)Nathalie.:J.Urol 168: 922-925 (2002) ?Free PSA(%) ?? Sensitivity(%) ??Specificity(%) ?< or = 25 ?85 ?19 ?< or = 30 ?93 ? 9 ? (3)Bonifacio et al.:ZAYDA 277: 2981-4900 (1996) ? (4)Catalona et al.:ZAYDA 279: 2303-9249 (1997)(x)These estimates vary with age, ethnicity, family [...] presence or absence ofdisease.THIS TEST WAS PERFORMED AT:[facility] [address] [place] [address] ??[id number] SANCHEZ MD PSA, Free 0.7 ng/mL [facility] 07/18/2024 12:2 5 PM EST 07/18/2024 12:25 PM EST us Generic External Data Provider LAB BLOOD ORDERAB LES Final Result [facility] [address] [place] [phone] * (ABNORMAL) PSA, Total With Reflex to PSA, Free (07/18/2024 10:47 AM EST) PSA,Total (Free>4and<10) 4.06(H) 0.00 - 4.00 ng/mL [facility] Comment:PSA methodology: Stas Jackson i ChemiluminescentMicroparticle Immunoassay (CMIA) 07/18/2024 10:4 7 AM EST 07/18/2024 10:47 AM EST us Generic External Data Provider LAB BLOOD ORDERAB LES Final Result [facility] [address] [place] [phone] [phone] * US RENAL BI (07/07/2024 4:29 PM EST) Anatomical Region Laterality Modality Abdomen Ultrasound 07/07/2024 4:29 PM EST Narrative 07/08/2024 1:30 PM EST ? [facility] ?[address] ?[place] [address] ? Ultrasound Report ? Signed ? Patient: Alli OrtizHoward ?MR#: [id number] ?? [id number] ? : 1965 ?Acct:[id number] ? Age/Sex: 59 / M ?ADM Date: 07/07/24 ? Loc: HO.US ? Attending Dr: Kaley MIGUEL ? Ordering Physician: Kaley Burgos ?? Date of Service: 07/07/24 ?? Procedure(s): US renal BI ?? Accession Number(s): [id number] ? cc: Kaley Burgos; Marleen Jovel MD [...] DD/ 1629 ? TD/TT: 07/07/24 1642 ? Recreation Therapy Aides Teacher: ? Procedure Note Donotuseinterpreter, Image - 07/08/2024 [place] [address] Ultrasound Report Signed Patient: Howard Junior#: [id number] : 1965Acct:[id number] Age/Sex: 59 / MADM Date: 07/07/24 Loc: HO.US Attending Dr: Kaley MIGUEL Ordering Physician: Kaley Burgos Date of Service: 07/07/24 Procedure(s): US renal BI Accession Number(s): [id number] cc: Kaley Burgos; Marleen Jovel MD EXAMINATION: [...] by: Alexandro Blandon MD 07/08/2024 01:27 PM [facility] Dictated By: Alexandro Blandon MD Signed By: <Electronically signed by Alexandro Blandon MD in OV> 07/08/24 1327 DD/ 1629 TD/TT: 07/07/24 1642 Recreation Therapy Aides Teacher: Result [facility] External Provider IMG US PROCEDURES Final Result * Hepatitis C Antibody with Reflex to HCV, RNA, Quantitative, Real-Time PCR (10/28/2023 10:49 AM EDT) Hepatitis C Antibody Nonreactive Nonreactive [facility] Comment:Antibodies to HCV no t detected; does not exclude early acuteHCV infection. Blood Venous blood specimen / Unknown 10/28/2023 10:49 AM EDT 10/28/2023 2:07 PM EDT Result [facility] Marleen Jovel MD LAB BLOOD ORDERABLES Final Re sult [facility] [address] [place] [address] [phone] * HIV-1/2 Antigen and Antibodies, Fourth Generation, with Reflexes (10/28/2023 10:49 AM EDT) HIV AB/AG Nonreactive Nonreactive [facility] Comment:HIV-1 p24 Ag and/or HIV-1/HIV-2 Ab not detected.A test result that is nonreactive does not exclude thepossibility of exposure to or infection with HIV-1 and/orHIV-2. Nonreactive results in this assay for individualswith prior exposure to HIV-1 and/or HIV-2 may be due toantigen and antibody levels that are below the limit ofdetection of this assay.The AxisRoomsniOptoNova HIV Ag/Ab Combo assay result andsupplemental assay results should be interpreted inconjunction with the patient's clinical presentation,history and other laboratory results. If the results areinconsistent with clinical evidence, additional testing issuggested to confirm the result. Blood Venous blood specimen / Unknown 10/28/2023 10:49 AM EDT 10/28/2023 2:07 PM EDT us Marleen Jovel MD LAB BLOOD ORDERABLES Final Re sult [facility] [address] [place] [phone] * (ABNORMAL) Lipid Panel, Standard (10/28/2023 10:49 AM EDT) Triglycerides 62 <150 mg/dL [facility] Comment:Desirable Triglyceri de: less than 150 mg/dLBorderline High Triglyceride 150-199 mg/dLHigh Triglyceride: 200-499 mg/dLVery High Triglyceride: greater than or equal to 5OO mg/dL Cholesterol 174 <200 mg/dL [facility] Comment:Desirable Cholestero l: less than 200 mg/dLBorderline High Cholesterol: 200-239 mg/dLHigh Cholesterol: greater than 239 mg/dL LDL Cholesterol Calculated 107(H) <100 mg/dL [facility] Comment:Desirable LDL: less than 100 mg/dLNear Optimal/Above Optimal LDL: 110- 129 mg/dLBorderline High LDL: 130-159 mg/dLHigh LDL: 160-189 mg/dLVery High LDL: greater than or equal to 190 mg/dL HDL Cholesterol 55 >40 mg/dL [facility] Comment:Desirable HDL: great er than 40 mg/dL Note: This HDL assay may give artificially low results in patients with liver disease. Blood Venous blood specimen / Unknown 10/28/2023 10:49 AM EDT 10/28/2023 2:07 PM EDT us Marleen Jovel MD LAB BLOOD ORDERABLES Final Re sult [facility] [address] [place] [address] [phone] from Last 3 Months or Most Recently Relevant to Health Maintenance Insurance [facility] Care Teams Wood Cutter Relationship Specialty Start Date End Date Marleen Jovel MD [address] [place] [phone] PCP - General Family Medicine 10/28/23
--- OUTSIDE RECORDS SUMMARY | 2024-09-28 18:06 | XMS_ITS | Encounter Summary ---
Author Organization [employer] Address [address] [facility] 7t [place] [address] Care Team Providers Care Labor Expediter Name Role Phone Marleen Jovel MD Primary Care Provider [phone] Encounter Details Date Type Department Care Team (Late st Contact Info) Description 09/23/2024 Orders Only [facility] [address] [place], [place] [phone] Nhung Bearden MD [address] [place], [place] [phone] Social History Tobacco Use Types Packs/Day Years [...] t he electric, gas, oil or water [employer] threatened to shut off services in your [...] Description 10/15/2024 3:00 PM EDT Clinical Support [facility] [address] [place] [address] 11/26/2024 11:00 AM EDT Nurse Only [facility] [address] [place] [address] documented as of this encounter Procedures Procedure Name Priority Date/Time Associated Diagnosis Comments METANEPHRINES, FRACT, FREE, LC/MS/MS, PLASMA Routine 09/23/2024 11:44 AM EDT documented in this encounter Results * Metanephrines, Fractionated, Free, LC/MS/MS, Plasma (09/23/2024 11:44 AM EDT) Metanephrine, Free 40 <=57 pg/mL [facility] Comment:This test was develo ped and its analytical performancecharacteristics have been determined by [employer] [place], [place]. It hasnot been cleared or approved by the U.S. Food and DrugAdministration. This assay has been validated pursuantto the CLIA regulations and is used for clinicalpurposes. Normetanephrine, Free 130 <=148 pg/mL [facility] Comment:This test was develo ped and its analytical performancecharacteristics have been determined by [employer] [place], [place]. It hasnot been cleared or approved by the U.S. Food and DrugAdministration. This assay has been validated pursuantto the CLIA regulations and is used for clinicalpurposes. Total, Free (MN+NMN) 170 <=205 pg/mL [facility] Comment: For additional information, please refer tohttp://education.[employer]/faq/MetFractFree(This link is being provided for informational/educatioinformational/educational purposes [...] Journal ofClinical Endocrinology # Metabolism 93(1), 91-95, 2008.This test was developed and its analytical performancecharacteristics have been determined by [employer] [place], [place]. It hasnot been cleared or approved by the U.S. Food and DrugAdministration. This assay has been validated pursuantto the CLIA regulations and is used for clinicalpurposes.THIS TEST WAS PERFORMED AT:[employer] [place], [place] ??[id number] YORK MD,PHD 09/23/2024 11:4 4 AM EDT 09/23/2024 11:44 AM EDT us Nhung Bearden MD LAB BLOOD ORDERABLES Final Result [facility] [address] [place] [phone] documented in this encounter Visit Diagnoses Not on filedocumented in this encounter Additional Health Concerns Assessment Noted Time PHQ-9 Depression Total Score: 0 10/28/19 24 9:20 AM EDT documented as of this encounter Care Teams Labor Expediter Relationship Specialty Start Date End Date Marleen Jovel MD [address] [place] [address] PCP - General Family Medicine 10/28/23 documented as of this encounter
== END 2024-09-28 16:48 | disposition home or self-care (01) ==
LOC: HO.HGI 15:18
PROVIDERS: PCP Family Medicine; Visit Provider Internal Medicine
DX: R13.10 Dysphagia, unspecified (principal); Z12.11 Encounter for screening for malignant neoplasm of colon
CPT/HCPCS: 99203

== ENCOUNTER → 2024-09-28 15:17 | Outpatient (BNVA) | payer OTHER, SELFPAY | PROVIDERS: PCP Family Medicine; Visit Provider Internal Medicine | DX: R13.10 Dysphagia, unspecified (principal); E66.9 Obesity, unspecified; Z68.33 Body mass index [BMI] 33.0-33.9, adult | CPT/HCPCS: 99202 ==

== ENCOUNTER 2024-09-29 10:43 | Outpatient (AMB) | payer OTHER, SELFPAY ==
--- NOTE | 2024-09-29 10:48 | A.OFFVIS_ITS ---
Vital Signs 09/29/24 10:58 Height 5 ft 7 in Weight 216 lb BMI 33.8 BP 126/75 Blood Pressure Location Lt brachial Position Sitting Pulse 74 Intake Visit Reasons: 1 mth follow up S/P umbilical hernia w/mesh Intake Note: Patient is seen in office for one month follow up visit, post umbilical hernia repair. 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 He tolerated the procedure well and denies any problems with discharge or bleeding from the incision. He does have some mild discomfort around the incision and also reports constipation. He denies any fever or chills. [facility] Medical History Abnormal EKG Arthritis Back pain Scoliosis Habitual snoring Bronchitis Asthma Nocturia GERD (gastroesophageal reflux disease) HTN (hypertension) Surgical History History of umbilical hernia repair (08/17/24) History of appendectomy H/O hand surgery Hx of hernia repair Hx of release of tendon Hx of bilateral inguinal hernia repair Social History Are you a primary weekend caregiver to a significant other at home: No Do you presently have visiting nurse or other home services: No Alcohol intake: current Alcohol intake frequency: a few times a week Patient Tobacco Use Status: Never used Tobacco Physical Exam Const General: no acute distress Nutritional Appearance: well nourished Orientation/consciousness: patient oriented x3 GI Other: Well-healed incision in the umbilicus without redness or discharge. No hernia noted with Valsalva maneuvers. Neuro General: patient oriented x3 Extrem General: Yes no clubbing, cyanosis or edema Assessment & Plan Assessment & Plan (1) Recurrent umbilical hernia: Code(s): K42.9 - Umbilical hernia without obstruction or gangrene Category: Medical Plan 59-year-old male patient returning 1 month following repair of an umbilical hernia. His wounds are healing nicely without evidence of infection or hernia recurrence. He may resume normal activity without restrictions. He may return to work as of 10/12/2024 without restrictions. Coding Level of Care Code Global (00941) Diagnoses Recurrent umbilical hernia K42.9
[2024-09-29 10:58] VITALS: BP 126/75; PULSE 74; BMI 33.8
--- OUTSIDE RECORDS SUMMARY | 2024-09-29 12:52 | XMS_ITS | Clinical Summary ---
Author Organization [facility] Address [address] [place] [address] Care Team Providers Care Hide Washer Name Role Phone Unavailable Primary Care Provider [...]
--- OUTSIDE RECORDS SUMMARY | 2024-09-29 12:52 | XMS_ITS | Encounter Summary ---
Author Organization [employer] Address [address] [facility] [address] [place] [address] Care Team Providers Care Services Executive Name Role Phone Marleen Jovel MD Primary Care Provider [phone] Reason for Visit * Reason Comments Med Refill Encounter Details Date Type Department Care Team ([facility] st Contact Info) Description 07/31/2024 Refill [facility] [address] [place], [place] [phone] Marleen Jovel MD [address] [place] [address] Social History Tobacco Use Types Packs/Day Years [...] 3:00 PM EDT Clinical Support [facility] [address] [place] [address] 11/26/2024 11:00 AM EDT Nurse Only [facility] [address] [place] [address] documented as of this encounter Visit Diagnoses Not on filedocumented in this encounter Additional Health Concerns Assessment Noted Time PHQ-9 Depression Total Score: 0 10/28/19 9:20 AM EDT documented as of this encounter Care Teams Services Executive Relationship Specialty Start Date End Date Marleen Jovel MD [address] [place] [address] PCP - General Family Medicine 10/28/23 documented as of this encounter
--- OUTSIDE RECORDS SUMMARY | 2024-09-29 12:52 | XMS_ITS | Encounter Summary ---
Author Organization [employer] Address [address] [facility] [address] [place] [address] Care Team Providers Care Senior Telecommunications Specialist Name Role Phone Marleen Jovel MD Primary Care Provider [phone] Encounter Details Date Type Department Care Team (Late st Contact Info) Description 09/24/2024 Orders Only [facility] External Provider, [facility] Social History Tobacco Use Types Packs/Day [...] Upcoming Encounters Date Type Department Care Team ([facility] st Contact Info) Description 10/15/2024 3:00 PM EDT Clinical Support [facility] [address] [facility] [place] [address] 11/26/2024 11:00 AM EDT Nurse Only [facility] [address] [place] [address] documented as of this encounter Procedures Procedure Name Priority Date/Time Associated Diagnosis Comments US BLADDER Routine 09/24/2024 3:17 PM EDT documented in this encounter Results * US BLADDER (09/24/2024 3:17 PM EDT) Anatomical Region Laterality Modality Abdomen Ultrasound 09/24/2024 3:17 PM EDT Narrative 09/25/2024 7:43 AM EDT ? [facility] ?[address] ?[place] [address] ? Ultrasound Report ? Signed ? Patient: Alli Ortiz,Howard ?MR#: [id number] ?? [id number] ? : 1965 ?Acct:[id number] ? Age/Sex: 59 / M ?ADM Date: 09/24/24 ? Loc: HO.US ? Attending Dr: Kaley ESPARZAP-BC ? Ordering Physician: Kaley BurgosP-BC ?? Date of Service: 09/24/24 ?? Procedure(s): US bladder ?? Accession Number(s): [id number] ? cc: Kaley Burgos MARKETING TRAFFIC MANAGER-; Marleen Jovel MD ? EXAMINATION: ??US BLADDER [...] DD/ 1517 ? TD/TT: 09/24/24 1523 ? Hair Salon Manager: ? Procedure Note Farzana Walls - 09/25/2024 [place] [address] Ultrasound Report Signed Patient: Howard JuniorMR#: [id number] : 1965Acct:[id number] Age/Sex: 59 / MADM Date: 09/24/24 Loc: HO.US Attending Dr: Kaley MIGUEL Ordering Physician: Kaley Burgos Date of Service: 09/24/24 Procedure(s): US bladder Accession Number(s): [id number] cc: Kaley Burgos; Marleen Jovel MD EXAMINATION: [...] 09/25/24 0741 DD/ 1517 TD/TT: 09/24/24 1523 Hair Salon Manager: [facility] External Provider IMG US PROCEDURES Final Result documented in this encounter Visit Diagnoses Not on filedocumented in this encounter Additional Health Concerns Assessment Noted Time PHQ-9 Depression Total Score: 0 10/28/19 24 9:20 AM EDT documented as of this encounter Care Teams Senior Telecommunications Specialist Relationship Specialty Start Date End Date Marleen Jovel MD [address] [place] [address] PCP - General Family Medicine 10/28/23 documented as of this encounter
--- OUTSIDE RECORDS SUMMARY | 2024-09-29 12:52 | XMS_ITS | Clinical Summary ---
Author Organization [employer] Address [address] [facility] [address] [place] [address] Care Team Providers Care Lacemaker Name Role Phone Marleen Jovel MD Primary Care Provider [phone] Allergies No known active allergies Medications tiZANidine [...] referral in the system. Will send to [facility]. Please attach media from ECG done in [...] Department Care Team Description 09/24/2024 Orders Only [facility] External Provider, [facility] 09/23/2024 Orders Only [facility] [address] [place] [address] Nhung Bearden MD 09/23/2024 Telephone [facility] [address] [place] [address] Marleen Jovel MD Medication Question 09/17/2024 10:00 AM EDT Office Visit [facility] [address] [place] [address] Nhung Bearden MD Essential hypertension (Primary Dx); Umbilical hernia without obstruction and without gangrene; Rhinosinusitis; Allergic conjunctivitis of both eyes 09/17/2024 Travel 08/04/2024 Refill [facility] [address] [place] [address] Marleen Jovel MD 07/31/[address] [facility] [address] [place] [address] Marleen Jovel MD 07/20/2024 Orders Only [facility] External Provider, [facility] 07/18/2024 Orders Only GENERIC EXTERNAL DATA DEPARTMENT Provider, Generic External Data 07/07/2024 Orders Only [facility] External Provider, [facility] from Last 3 Months Immunizations Name [...] Description 10/15/2024 3:00 PM EDT Clinical Support [facility] [address] [place] [address] 11/26/2024 11:00 AM EDT Nurse Only [facility] [address] [place] [address] Health Maintenance Due Date Last Done Comments [...] EDT Narrative 09/25/2024 7:43 AM EDT ? [facility] ?[address] ?[place] [address] ? Ultrasound Report ? Signed ? Patient: Alli Ortiz,Howard ?MR#: [id number] ?? [id number] ? : 1965 ?Acct:[id number] ? Age/Sex: 59 / M ?ADM Date: 04/03/25 ? Loc: HO.US ? Attending Dr: Kaley MIGUEL ? Ordering Physician: Kaley Burgos ?? Date of Service: 09/24/24 ?? Procedure(s): US bladder ?? Accession Number(s): [id number] ? cc: Kaley Burgos; Marleen Jovel MD [...] DD/ 1517 ? TD/TT: 09/24/24 1523 ? Bin Operator: ? Procedure Note Farzana Walls - 09/25/2024 [place] [address] Ultrasound Report Signed Patient: Howard JuniorMR#: [id number] : 1965Acct:[id number] Age/Sex: 59 / MADM Date: 09/24/24 Loc: HO.US Attending Dr: Kaley MIGEUL Ordering Physician: Kaley Burgos Date of Service: 09/24/24 Procedure(s): US bladder Accession Number(s): [id number] cc: Kaley Burgos; Marleen Jovel MD EXAMINATION: [...] 09/25/24 0741 DD/ 1517 TD/TT: 09/24/24 1523 Bin Operator: us [facility] External Provider IMG US PROCEDURES Final Result * Metanephrines, Fractionated, Free, LC/MS/MS, Plasma (09/23/2024 11:44 AM EDT) Metanephrine, Free 40 <=57 pg/mL [facility] Comment:This test was develo ped and its analytical performancecharacteristics have been determined by [facility] [facility] [place], [place]. It hasnot been cleared or approved by the U.S. Food and DrugAdministration. This assay has been validated pursuantto the CLIA regulations and is used for clinicalpurposes. Normetanephrine, Free 130 <=148 pg/mL [facility] Comment:This test was develo ped and its analytical performancecharacteristics have been determined by [facility] [facility] [place], [place]. It hasnot been cleared or approved by the U.S. Food and DrugAdministration. This assay has been validated pursuantto the CLIA regulations and is used for clinicalpurposes. Total, Free (MN+NMN) 170 <=205 pg/mL [facility] Comment: For additional information, please refer tohttp://education.Smalldeals.Avinger/faq/MetFractFree(This link is being provided for informational/educatioinformational/educational purposes [...] its analytical performancecharacteristics have been determined by [employer] [place], [place]. It hasnot been cleared or approved by the U.S. Food and DrugAdministration. This assay has been validated pursuantto the CLIA regulations and is used for clinicalpurposes.THIS TEST WAS PERFORMED AT:[facility] [address] [place], [place] ??[id number] W. MASON,MD,PHD 09/23/2024 11:4 4 AM EDT 09/23/2024 11:44 AM EDT us Nhung Bearden MD LAB BLOOD ORDERABLES Final Result [facility] [address] [place] [phone] * Aldosterone/Plasma Renin Activity Ratio, LC/MS/MS (09/23/2024 11:44 AM EDT) Aldosterone 4 see note ng/dL [facility] Comment:Unable to flag abnor mal result(s), please refer to reference range(s) below:Adult Reference Ranges for Aldosterone, LC/MS/MS: Upright 8:00 - 10:00 am < or = 28 ng/dL Upright 4:00 - 6:00 pm < or = 21 ng/dL Supine 8:00 - 10:00 am 3 - 16 ng/dLTHIS TEST WAS PERFORMED AT:[facility]/[id number] [place] [address]XKSPEGHMARÍA YORK MD,PHD Plasma Renin Activity 0.80 0.25 - 5.82 ng/mL/h [facility] Aldosterone/Renin Ratio 5.0 0.9 - 28.9 Ratio [facility] Comment:This test was develo ped and its analytical performancecharacteristics have been determined by [employer] [place], [place]. It hasnot been cleared or approved by the U.S. Food and DrugAdministration. This assay has been validated pursuantto the CLIA regulations and is used for clinicalpurposes.THIS TEST WAS PERFORMED AT:[facility] [facility] [employer] [facility]/[employer] [id number] [place] [address]YJBHKWDMARÍA YORK MD,PHD Blood Venous blood specimen / Unknown 09/23/2024 11:44 AM EDT 09/23/2024 11:44 AM EDT us Nhung Bearden MD LAB BLOOD ORDERABLES Final Result [facility] [address] [place] [phone] * (ABNORMAL) PSA, Free and Total (07/18/2024 12:25 PM EST) PSA, Total 4.1(A) < OR = 4.0 ng/mL [facility] PSA % Free 17(A) >25 % (calc) [facility] Comment: PSA(ng/mL) ?Free PSA(%) ? Estimated(x) [...] ? 9 ? (3)Bonifacio et al.:ZAYDA 277: 3191-0647 (1996) ? (4)Catalona et al.:ZAYDA 279: 3985-2996 (1997)(x)These estimates vary with age, ethnicity, family [...] presence or absence ofdisease.THIS TEST WAS PERFORMED AT:[facility] [place] [address] ??[id number] SANCHEZ MD PSA, Free 0.7 ng/mL [facility] 07/18/2024 12:2 5 PM EST 07/18/2024 12:25 PM EST us Generic External Data Provider LAB BLOOD ORDERAB LES Final Result [facility] [address] [place] [phone] * (ABNORMAL) PSA, Total With Reflex to PSA, Free (07/18/2024 10:47 AM EST) PSA,Total (Free>4and<10) 4.06(H) 0.00 - 4.00 ng/mL [facility] Comment:PSA methodology: Stas Jackson i ChemiluminescentMicroparticle Immunoassay (CMIA) 07/18/2024 10:4 7 AM EST 07/18/2024 10:47 AM EST us Generic External Data Provider LAB BLOOD ORDERAB LES Final Result [facility] [address] [place] [address] [phone] * US RENAL BI (07/07/2024 4:29 PM EST) Anatomical Region Laterality Modality Abdomen Ultrasound 07/07/2024 4:29 PM EST Narrative 07/08/2024 1:30 PM EST ? [facility] ?[address] ?[place] [address] ? Ultrasound Report ? Signed ? Patient: Alli OrtizHoward ?MR#: [id number] ?? [id number] ? : 1965 ?Acct:[id number] ? Age/Sex: 59 / M ?ADM Date: 07/07/24 ? Loc: HO.US ? Attending Dr: Kaley MIGUEL ? Ordering Physician: Kaley Burgos ?? Date of Service: 07/07/24 ?? Procedure(s): US renal BI ?? Accession Number(s): [id number] ? cc: Kaley Burgos; Marleen Jovel MD [...] DD/ 1629 ? TD/TT: 07/07/24 1642 ? Bin Operator: ? Procedure Note Donotuseinterpreter, Image - 07/08/2024 [place] [address] Ultrasound Report Signed Patient: Howard Junior#: [id number] : 1965Acct:[id number] Age/Sex: 59 / MADM Date: 07/07/24 Loc: HO.US Attending Dr: Kaley MIGUEL Ordering Physician: Kaley Burgos Date of Service: 07/07/24 Procedure(s): US renal BI Accession Number(s): [id number] cc: Kaley Burgos; Marleen Jovel MD EXAMINATION: [...] Alexandro Blandon MD 07/08/2024 01:27 PM [facility] Dictated By: Aelxandro Blandon MD Signed By: <Electronically signed by Alexandro Blandon MD in OV> 07/08/24 1327 DD/ 1629 TD/TT: 07/07/24 1642 Bin Operator: Result [facility] External Provider IMG US PROCEDURES Final Result * Hepatitis C Antibody with Reflex to HCV, RNA, Quantitative, Real-Time PCR (10/28/2023 10:49 AM EDT) Hepatitis C Antibody Nonreactive Nonreactive [facility] Comment:Antibodies to HCV no t detected; does not exclude early acuteHCV infection. Blood Venous blood specimen / Unknown 10/28/2023 10:49 AM EDT 10/28/2023 2:07 PM EDT Result [facility] Marleen Jovel MD LAB BLOOD ORDERABLES Final Re sult [facility] [address] [place] [address] [phone] * HIV-1/2 Antigen and Antibodies, Fourth Generation, with Reflexes (10/28/2023 10:49 AM EDT) HIV AB/AG Nonreactive Nonreactive [facility] Comment:HIV-1 p24 Ag and/or HIV-1/HIV-2 Ab not detected.A test result that is nonreactive does not exclude thepossibility of exposure to or infection with HIV-1 and/orHIV-2. Nonreactive results in this assay for individualswith prior exposure to HIV-1 and/or HIV-2 may be due toantigen and antibody levels that are below the limit ofdetection of this assay.The [employer] It Better HIV Ag/Ab Combo assay result andsupplemental assay results should be interpreted inconjunction with the patient's clinical presentation,history and other laboratory results. If the results areinconsistent with clinical evidence, additional testing issuggested to confirm the result. Blood Venous blood specimen / Unknown 10/28/2023 10:49 AM EDT 10/28/2023 2:07 PM EDT us Marleen Jovel MD LAB BLOOD ORDERABLES Final Re sult [facility] [address] [place] [phone] * (ABNORMAL) Lipid Panel, Standard (10/28/2023 10:49 AM EDT) Triglycerides 62 <150 mg/dL [facility] Comment:Desirable Triglyceri de: less than 150 mg/dLBorderline High Triglyceride 150-199 mg/dLHigh Triglyceride: 200-499 mg/dLVery High Triglyceride: greater than or equal to 5OO mg/dL Cholesterol 174 <200 mg/dL [facility] Comment:Desirable Cholestero l: less than 200 mg/dLBorderline High Cholesterol: 200-239 mg/dLHigh Cholesterol: greater than 239 mg/dL LDL Cholesterol Calculated 107(H) <100 mg/dL [facility] Comment:Desirable LDL: less than 100 mg/dLNear Optimal/Above Optimal LDL: 110- 129 mg/dLBorderline High LDL: 130-159 mg/dLHigh LDL: 160-189 mg/dLVery High LDL: greater than or equal to 190 mg/dL HDL Cholesterol 55 >40 mg/dL [facility] Comment:Desirable HDL: great er than 40 mg/dL Note: This HDL assay may give artificially low results in patients with liver disease. Blood Venous blood specimen / Unknown 10/28/2023 10:49 AM EDT 10/28/2023 2:07 PM EDT us Marleen Jovel MD LAB BLOOD ORDERABLES Final Re sult [facility] [address] [place] [address] [phone] from Last 3 Months or Most Recently Relevant to Health Maintenance Insurance [facility] Care Teams Lacemaker Relationship Specialty Start Date End Date Marleen Jovel MD [address] [place] [phone] PCP - General Family Medicine 10/28/23
--- OUTSIDE RECORDS SUMMARY | 2024-09-29 12:52 | XMS_ITS | Encounter Summary ---
Author Organization [employer] Address [address] [facility] 7t [place] [address] Care Team Providers Care Telegraph Repeater Mechanic Name Role Phone Marleen Jovel MD Primary Care Provider [phone] Encounter Details Date Type Department Care Team (Late st Contact Info) Description 09/23/2024 Orders Only [facility] [address] [place], [place] [phone] Nhung Bearden MD [address] [place] [employer], [place] [phone] Social History Tobacco Use Types Packs/Day Years [...] t he electric, gas, oil or water [employer] threatened to shut off services in your [...] 3:00 PM EDT Clinical Support [facility] [address] [place] [address] 11/26/2024 11:00 AM EDT Nurse Only [facility] [address] [place] [address] documented as of this encounter Procedures Procedure Name Priority Date/Time Associated Diagnosis Comments METANEPHRINES, FRACT, FREE, LC/MS/MS, PLASMA Routine 09/23/2024 11:44 AM EDT documented in this encounter Results * Metanephrines, Fractionated, Free, LC/MS/MS, Plasma (09/23/2024 11:44 AM EDT) Metanephrine, Free 40 <=57 pg/mL [facility] Comment:This test was develo ped and its analytical performancecharacteristics have been determined by [employer] [place], [place]. It hasnot been cleared or approved by the U.S. Food and DrugAdministration. This assay has been validated pursuantto the CLIA regulations and is used for clinicalpurposes. Normetanephrine, Free 130 <=148 pg/mL [facility] Comment:This test was develo ped and its analytical performancecharacteristics have been determined by [employer] [place], [place]. It hasnot been cleared or approved by the U.S. Food and DrugAdministration. This assay has been validated pursuantto the CLIA regulations and is used for clinicalpurposes. Total, Free (MN+NMN) 170 <=205 pg/mL [facility] Comment: For additional information, please refer tohttp://education.[employer]/faq/MetFractFree(This link is being provided for informational/educatioinformational/educational purposes [...] its analytical performancecharacteristics have been determined by [employer] [place], [place]. It hasnot been cleared or approved by the U.S. Food and DrugAdministration. This assay has been validated pursuantto the CLIA regulations and is used for clinicalpurposes.THIS TEST WAS PERFORMED AT:[employer] [place], [place] ??[phone] YORK MD,PHD 09/23/2024 11:4 4 AM EDT 09/23/2024 11:44 AM EDT us Nhung Bearden MD LAB BLOOD ORDERABLES Final Result [facility] [address] [place] [phone] documented in this encounter Visit Diagnoses Not on filedocumented in this encounter Additional Health Concerns Assessment Noted Time PHQ-9 Depression Total Score: 0 10/28/19 24 9:20 AM EDT documented as of this encounter Care Teams Telegraph Repeater Mechanic Relationship Specialty Start Date End Date Marleen Jovel MD [address] [place] [address] PCP - General Family Medicine 10/28/23 documented as of this encounter
== END 2024-09-29 11:15 | disposition home or self-care (01) ==
LOC: HO.HGS 10:43
PROVIDERS: PCP Family Medicine; Visit Provider Surgery
DX: K42.9 Umbilical hernia without obstruction or gangrene (principal)
CPT/HCPCS: 99212

== ENCOUNTER → 2024-09-29 10:43 | Outpatient (BNVA) | payer OTHER, SELFPAY | PROVIDERS: PCP Family Medicine; Visit Provider Surgery | DX: K42.9 Umbilical hernia without obstruction or gangrene (principal) | CPT/HCPCS: 99212 ==

== ENCOUNTER 2024-10-07 11:26 | Outpatient (AMB) | payer OTHER, SELFPAY ==
--- NOTE | 2024-10-07 11:36 | MHC.OFFVIS ---
Intake Visit Reasons: 2m/US(set) Intake Note: Patient is present for 2M/US Urology Medication:NONE Antibiotic Allergy:NONE Blood Thinner:NONE TODAY'S PVR:0ML'S High [employer] Academic Coach Required: No Allergies No Known Allergies Allergy (Verified 10/07/24 13:29) Medication List - Last Reconciled 10/07/24 by DAE Canela- albuterol sulfate 90 mcg/actuation 2 puffs inhalation Q4-6H PRN betamethasone valerate 0.1% 1 appl topical DAILY blood pressure test kit-large As directed cetirizine 10 mg PO DAILY cholecalciferol (vitamin D3) 50 mcg PO DAILY fluticasone furoate 100 mcg/actuation (Arnuity Ellipta) 1 inh inhalation DAILY pantoprazole 20 mg PO DAILY polyethylene glycol 3350 (Miralax) 238 grams PO ONCE tizanidine 2 mg PO BID PRN tramadol 50 mg PO TID PRN HPI Comments Details: Howard is a very pleasant 59-year-old Uruguayan-speaking male patient of Dr. Jovel who is accompanied by his sister at today's office visit. He has a past medical history of arthritis, back pain, scoliosis, bronchitis, asthma, GERD, and hypertension. He presents to the office today for follow-up of his elevated PSA. In discussion with the patient today he reports to be doing and feeling well. When asked he continues to report episodes of nocturia however has been following up with PCP to obtain in-person/inpatient sleep study as most recent home sleep study recommended inpatient assessment. He otherwise denies urinary urgency, urinary frequency, incontinence, hematuria, dysuria, foul smelling urine, changes to urinary stream, flank pain, fever, and or chills. Recent bladder ultrasound results reviewed with the patient today. Pre void bladder volume was approximately 375 mL. Postvoid bladder volume is approximately 10 mL. The prostate measures 24 mL. We discussed at length potential causes of nocturia as well as borderline elevated PSA. PSAs are as follows: 11/14 4.0 % free PSA 8%, 07/18 4.1 % free PSA 17% We discussed further treatment options to include surveillance monitoring verses trial of finasteride verses prostate biopsy verses MRI of the prostate. Risks and benefits of these interventions were discussed at length. All questions were answered. When asked he denies any known family history of prostate cancer. PCPT risk calculator results were reviewed. 75% chance that prostate biopsy is negative for prostate cancer, 20% chance of low-grade prostate cancer, and 5% chance of high-grade prostate cancer. In office urinalysis results reviewed with the patient today. PVR 0 mLs He otherwise offers no other issues or concerns at this time. [facility] Medical History Abnormal EKG Arthritis Back pain Scoliosis Habitual snoring Bronchitis Asthma Nocturia GERD (gastroesophageal reflux disease) HTN (hypertension) Surgical History History of umbilical hernia repair (08/17/24) History of appendectomy H/O hand surgery Hx of hernia repair Hx of release of tendon Hx of bilateral inguinal hernia repair Social History Are you a primary acute care registered nurse to a significant other at home: No Do you presently have visiting nurse or other home services: No Alcohol intake: current Alcohol intake frequency: a few times a week Patient Tobacco Use Status: Never used Tobacco Review of Systems Const All systems reviewed & are unremarkable except as noted in HPI and below Physical Exam Const General: cooperative, healthy appearing, comfortable, no acute distress, well developed, alert and awake Nutritional Appearance: overweight Orientation/consciousness: patient oriented x3 Limitations: no limitations HEENT Head: Yes normal to inspection, Yes normocephalic and Yes atraumatic Ears: hearing grossly normal bilaterally Eyes General: appearance normal, both eyes and all related structures Neck Neck: Yes normal visual inspection and Yes trachea midline Chest Chest palpation & inspection: normal inspection of the chest Resp Effort & Inspection: normal respiratory effort and able to speak in complete sentences Cardio Rate: regular rate GI Inspection: Yes normal to inspection General: Yes no CVA tenderness Back/Spine/Pelvis Back: no CVA tenderness Skin General skin exam: no rashes or lesions noted Neuro General: patient oriented x3 Extrem General: Yes normal to inspection Psych Appearance: grossly normal and well kempt Mental Status: mental status grossly normal Speech and movement: Normal speech and movement present and Clear speech present Affect: normal affect Attitude: cooperative Thought process: Normal thought process present Thought content: Normal thought content present Insight: Fair insight present (Psych) Judgement: Fair judgement present (Psych) Office Procedures Post Void Residual Post Residual Void Post Void Residual (PVR): 0 [id number]-[id number] Void Residual by ultrasound Assessment & Plan Assessment & Plan (1) Elevated PSA: Code(s): R97.20 - Elevated prostate specific antigen [PSA] Category: Medical Plan In office urinalysis results reviewed with the patient today; as noted above. PVR 0 mL. Discussed potential causes of elevated PSA as well as nocturia We discussed further workup of elevated PSA and risks and benefits of these interventions. Will continue with surveillance monitoring at this time. Will obtain PSA now as well as in 4 months. We discussed obtaining in person sleep study for further assessment evaluation in correlation of potential sleep apnea with nocturia. Follow-up in 4 months with PSA and PVR; or sooner with any issues, concerns, and or questions. Orders: Orders Prostate Specific Antigen 4 Months R97.20 - Elevated prostate specific antigen [PSA] Prostate Specific Antigen Today R97.20 - Elevated prostate specific antigen [PSA] Patient Instructions: The patient had an opportunity to ask questions regarding the treatment plan. All questions were answered. Physical exam, labs, and imaging were discussed and reviewed in detail. As well as risks, benefits, and discussion of treatment choices. No major barriers to understanding were identified. The patient expressed understanding and agreement with the above treatment plan. The patient was made aware they should contact our office by phone for worsening of their current condition, the appearance of new symptoms, or with any questions or concerns. Compliance is encouraged with any medications and follow up testing that is ordered. It is a privilege to be allowed the opportunity to participate in? your urological care.? Again, if you have any questions or concerns If you have any questions or concerns please do not hesitate to contact me. The office is [phone]. This note is constructed using voice recognition software. While every effort has been made to ensure accuracy inspector floor sub assembly errors may have been included. Yours sincerely, MYRIAM Canela Coding Level of Care Code Est Pt Level 3 (36825) Complex EM visit Add On G2211 Diagnoses Elevated PSA R97.20 CPT Codes Post Residual Void - PVR CPT Code: 07409-Vgof Void Residual by ultrasound ([id number])
--- OUTSIDE RECORDS SUMMARY | 2024-10-07 13:52 | XMS_ITS | Clinical Summary ---
Author Organization [facility] Address [address] [place] [address] Phone Care Team Providers Care Geospatial Applications Developer Name Role Phone Marleen Jovel MD Primary Care Provider [phone] Allergies No known active allergies Medications No known medications Active Problems No known active problems Encounters Date Type Department Care Team Description 10/02/2024 7:39 PM EDT - 10/02/2024 9:[address] [facility] Emergency [address] [place] [address] Chest pain, unspecified type (Primary Dx) Discharge Disposition: Home or Self Care from Last 3 Months Medical History Medical History Date Comments Hypertension Social History Tobacco Use Types Packs/Day Years Used Date Smoking Tobacco: Never Assessed Sex and Gender Information Value Date Recorded Sex Assigned at Male 10/02/2024 7:49 PM EDT Legal Sex Male 4:35 AM EST Gender Identity Male 10/02/2024 7:49 PM EDT Sexual Orientation Straight 10/02/2024 7: 49 PM EDT Obstetrics History Last Filed Vital Signs Vital Sign Reading Time Taken Comments Blood Pressure 135/90 10/02/2024 7:45 PM EDT Pulse 74 10/02/2024 7:45 PM EDT Temperature 36.6 ??C (97.9 ??F) 10/02/2024 7:45 PM ED T Respiratory Rate 18 10/02/2024 7:45 PM EDT Oxygen Saturation 97% 10/02/2024 7:45 PM EDT Inhaled Oxygen Concentration - - Weight 95.3 kg (210 lb) 10/02/2024 5:31 PM EDT Height 170.2 cm (5' 7 ) 10/02/2024 5:31 PM EDT Body Mass Index 32.89 10/02/2024 5:31 PM EDT Plan of Treatment Health Maintenance Due Date Last Done Comments DTaP,Tdap,and Td Vaccines (1 - Tdap) 1983 Pneumococcal Vaccine: 50+ Years (1 of 2 - PCV) 1983 Pneumococcal Vaccine: Pediatrics (0 to 5 Years) and At-Risk Patients (6 to 64 Years) (1 of 2 - PCV) 1983 Colorectal Cancer Screening: Colonoscopy 05/27/2022 Social Influencers of Health Screening 05/27/2022 COVID-19 Vaccine (3 - 2023- season) 2024 01/07/2021, 12/17/2020 RSV Immunization Adult Patients (1 - Risk 60-74 years 1-dose series) 2024 Hepatitis B Vaccines (3 of 3 - 19+ 3-dose series) 05/22/2024 12/18/2023, 11/20/2023 Depression Screening 10/27/2024 10/28/2023 Zoster Vaccines (2 of 2) 11/12/2024 09/17/2024 Hypertension/CHF/CAD Annual BMP Blood Test 10/02/2025 10/02/2024 Cholesterol Screening (Lipid Panel) 10/27/2028 10/28/2023 HIV Screening Completed 10/28/2023 Hepatitis [...] to complete this topic RSV Immunization Patients Under 20 months Aged Out No longer eligible based on patient's age to complete this topic Varicella Vaccines Aged Out No longer eligible based on patient's age to complete this topic Procedures Procedure Name Priority Date/Time Associated Diagnosis Comments ECG ANNOTATED 10/03/2024 ECG 12-LEAD STAT 10/02/2024 8:09 PM EDT XR CHEST 2 VIEWS STAT 10/02/2024 7:26 PM EDT TROPONIN I HIGH SENSITIVITY STAT 10/02/2024 7:16 PM EDT CBC WITH AUTO DIFFERENTIAL STAT 10/02/2024 5:49 PM EDT B-TYPE NATRIURETIC PEPTIDE STAT 10/02/2024 5:49 PM EDT MAGNESIUM STAT 10/02/2024 5:49 PM EDT LIPASE STAT 10/02/2024 5:49 PM EDT COMPREHENSIVE METABOLIC PANEL STAT 10/02/2024 5:49 PM EDT CBC AND DIFFERENTIAL STAT 10/02/2024 5:49 PM EDT TROPONIN I HIGH SENSITIVITY STAT 10/02/2024 5:49 PM EDT ECG 12-LEAD STAT 10/02/2024 5:37 PM EDT from Last 3 Months Results * ECG-Annotated (10/03/2024) us Provider Onbase MD ECG ORDERABLES Final Result * ECG 12 lead (10/02/2024 8:09 PM EDT) Only the most recent of2 resultswithin the time period is included. Ventricular Rate ECG 77 BPM GEMUSE Atrial Rate 77 BPM GEMUSE P-R Interval 126 ms GEMUSE QRS Duration 88 ms GEMUSE Q-T Interval 388 ms GEMUSE QTc 439 ms GEMUSE P Wave Uriah 22 degrees GEMUSE R Uriah -31 degrees GEMUSE T Uriah 10 degrees GEMUSE ECG Interpretation Normal sinus rhythm Left axis deviation Nonspecific T wave abnormality Abnormal ECG When compared with ECG of 02-OCT-2024 17:37, No significant change was found Confirmed by LUCIAN GILLETTE ([id number]) on 10/03/2024 3:34:11 PM GEMUSE 10/02/2024 8:09 PM EDT 10/03/2024 3:34 PM EDT us Michelle Galloway DO ECG ORDERABLES Final Res ult GEMUSE * XR Chest 2 Views (10/02/2024 7:26 PM EDT) Anatomical Region Laterality Modality Body Radiographic Vernell ging 10/03/2024 8:39 AM EDT Impressions 10/03/2024 8:40 AM EDT No acute findings. -------- FINAL REPORT -------- Dictated By: Mayur Zavala Dictated Date: 10/03/2024 08:39 ET Assigned Physician: Mayur Zavala Reviewed and Electronically Signed By: Mayur Zavala Signed Date: 10/03/2024 08:40 ET Workstation ID: [id number] Transcribed By: Self Edit Transcribed Date: 10/03/2024 08:39 ET Narrative 10/03/2024 8:40 AM EDT PROCEDURE: PA and lateral radiographs of the chest. HISTORY: chest pain. COMPARISON: 09/20/2023. FINDINGS: The heart is mildly enlarged. ??Lungs and pleural spaces are clear. ??No pulmonary edema. ??Degenerative changes of the spine. Procedure Note Mayur Zavala MD - 10/03/2024 PROCEDURE: PA and lateral radiographs of the chest. HISTORY: chest pain. COMPARISON: 09/20/2023. FINDINGS: The heart is mildly enlarged. Lungs and pleural spaces are clear. Nopulmonary edema. Degenerative changes of the spine. IMPRESSION: No acute findings. -------- FINAL REPORT -------- Dictated By: Mayur Zavala Dictated Date: 10/03/2024 08:39 ET Assigned Physician: Mayur Zavala Reviewed and Electronically Signed By: Mayur Zavala Signed Date: 10/03/2024 08:40 ET Workstation ID: [id number] Transcribed By: Self Edit Transcribed Date: 10/03/2024 08:39 ET Michelle Galloway DO IMG XR PROCEDURES Final R esult * Troponin I high sensitivity (10/02/2024 7:16 PM EDT) Only the most recent of2 resultswithin the time period is included. [facility] High Sensitivity Troponin I 9 <=79 ng/L LAB CHEMISTRY METHOD 10/02/2024 8:01 PM EDT [facility] Blood Venous blood specimen / Unknown Venipuncture / Unknown 10/02/2024 7:16 PM EDT 10/02/2024 7:33 PM EDT Narrative [facility] - 10/02/2024 8:01 PM EDT High levels of biotin in samples may falsely decrease hsTroponin values. ??Use caution when interpreting hsTroponin results in patients taking biotin who exhibit renal impairment (eGFR <60) or in patients taking more than 20 mg/day of biotin. Michelle Galloway DO LAB BLOOD ORDERABLES Demi l Result [facility] [address] [place] [address], [place] [phone] * (ABNORMAL) CBC auto differential (10/02/2024 5:49 PM EDT) [facility] WBC 7.2 4.8 - 10.8 K/[facility] LAB HEMETOLOGY METHOD 10/02/2024 6:11 PM EDT [facility] RBC 4.70 4.50 - 5.50 M/[facility] LAB HEMETOLOGY METHOD 10/02/2024 6:11 PM EDT [facility] Hemoglobin 15.2 13.5 - 17.5 g/dL LAB HEMETOLOGY [facility] Hematocrit 46.0 42.0 - 54.0 % LAB HEMETOLOGY METHOD [facility]/02[facility]2024 [facility] MCV 97.0 79.0 - 98.0 FL LAB HEMETOLOGY METHOD 10/02/2024 6:11 PM EDT [facility] MCH 32.1(H) 27.0 - 32.0 pcg LAB HEMETOLOGY METHOD 10/02[facility]2024 6[facility] MCHC 33.0 32.0 - 37.0 g/dL LAB HEMETOLOGY METHOD 10/02/2024 6:11 PM [facility] RDW 12.8 11.0 - 15.0 % LAB HEMETOLOGY METHOD 10/02/2024 6:[facility] Platelets 234 130 - 400 K/mcL LAB HEMETOLOGY METHOD 10/02/2024 6[facility] MPV 10.5 7.0 - 11.0 FL LAB HEMETOLOGY METHOD 10/02/2024 6:11 PM [facility] NRBC 0.0 <1.0 % LAB HEMETOLOGY METHOD 10/02[facility]2024 6[facility] NRBC Absolute 0.00 <0.10 K/mcL LAB HEMETOLOGY METHOD 10/02/2024 6[facility] Neutrophils Relative 59.2 % LAB HEMETOLOGY METHOD 10/02/2024 6:[facility] Lymphocytes Relative 27.6 % LAB HEMETOLOGY METHOD 10/02/2024 6:11 PM [facility] Monocytes Relative 9.0 % LAB HEMETOLOGY METHOD 10/02/2024 6:11 PM EDT [facility] Eosinophils Relative 3.3 % LAB HEMETOLOGY METHOD 10/02/2024 6:11 PM EDT [facility] Basophils Relative 0.6 % LAB HEMETOLOGY METHOD 10/02/2024 6:11 PM EDT [facility] Immature Granulocytes Relative 0.3 % LAB HEMETOLOGY METHOD 10/02/2024 6:11 PM EDT [facility] Neutrophils Absolute 4.26 1.50 - 7.00 K/mcL LAB HEMETOLOGY METHOD 10/02/2024 6:11 PM EDT [facility] Lymphocytes Absolute 1.99 1.00 - 5.00 K/mcL LAB HEMETOLOGY METHOD 10/02/2024 6:11 PM EDT [facility] Monocytes Absolute 0.65 0.20 - 1.00 K/mcL LAB HEMETOLOGY METHOD 10/02/2024 6:11 PM EDT [facility] Eosinophils Absolute 0.24 0.00 - 0.50 K/mcL LAB HEMETOLOGY METHOD 10/02/2024 6:11 PM EDT [facility] Basophils Absolute 0.04 0.00 - 0.20 K/mcL LAB HEMETOLOGY METHOD 10/02/2024 6:11 PM EDT [facility] Immature Granulocytes Absolute 0.02 0.00 - 0.03 K/mcL LAB HEMETOLOGY METHOD 10/02/2024 6:11 PM EDT [facility] Blood Venous blood specimen / Unknown Venipuncture / Unknown 10/02/2024 5:49 PM EDT 10/02/2024 6:00 PM EDT us Michelle Galloway DO LAB BLOOD ORDERABLES Demi l Result [facility] [address] [place] [address], [place] [phone] * (ABNORMAL) B-type natriuretic peptide (10/02/2024 5:49 PM EDT) [facility] BNP 114(H) <=100 pcg/mL LAB CHEMISTRY METHOD 10/02/2024 6:37 PM EDT [facility] Blood Venous blood specimen / Unknown Venipuncture / Unknown 10/02/2024 5:49 PM EDT 10/02/2024 6:01 PM EDT Michelle Galloway DO LAB BLOOD ORDERABLES Demi l Result [facility] [address] [place] [address], [place] [phone] * Magnesium (10/02/2024 5:49 PM EDT) [facility] Magnesium 2.1 1.9 - 2.6 mg/dL LAB CHEMISTRY METHOD 10/02/2024 6:31 PM EDT [facility] Blood Venous blood specimen / Unknown Venipuncture / Unknown 10/02/2024 5:49 PM EDT 10/02/2024 6:01 PM EDT Michelle Lares Galloway DO LAB BLOOD ORDERABLES Demi l Result [facility] [address] [place] [address], [place] [phone] * Lipase (10/02/2024 5:49 PM EDT) [facility] Lipase 28 13 - 75 unit/L LAB CHEMISTRY METHOD 10/02/2024 6:33 PM EDT [facility] Blood Venous blood specimen / Unknown Venipuncture / Unknown 10/02/2024 5:49 PM EDT 10/02/2024 6:01 PM EDT us Michelle Galloway DO LAB BLOOD ORDERABLES Demi l Result [facility] [address] [place] [address], [place] [phone] * (ABNORMAL) Comprehensive metabolic panel (10/02/2024 5:49 PM EDT) Sodium 141 133 - 145 mmol/L LAB CHEMISTRY METHOD 10/02/2024 6:31 PM EDT [facility] Potassium 3.8 3.5 - 5.5 mmol/L LAB CHEMISTRY METHOD 10/02/2024 6:31 PM [facility] Chloride 109 96 - 110 mmol/L LAB CHEMISTRY METHOD 10/02/2024 6:31 PM [facility] CO2 26 21 - 32 mmol/L LAB CHEMISTRY METHOD 10/02/2024 6:31 PM [facility] Anion Gap 6 3 - 11 LAB CHEMISTRY METHOD 10/02/2024 6:31 PM [facility] Glucose 124(H) 70 - 100 mg/dL LAB CHEMISTRY METHOD 10/02/2024 6:31 PM [facility] BUN 19 5 - 25 mg/dL LAB CHEMISTRY METHOD 10/02/2024 6:31 PM [facility] Creatinine 0.89 0.70 - 1.30 mg/dL LAB CHEMISTRY METHOD 10/02/2024 6:31 PM [facility] eGFR 98 >=60 mL/min/1. 73m2 LAB CHEMISTRY METHOD 10/02/2024 6:31 PM [facility] Comment:Calculation based on the??Chronic Kidney Disease Epidemiology Collaboration (CKD-EPI) equation refit??without adjustment for race. BUN/Creatinine Ratio 21.3 LAB CHEMISTRY METHOD 10/02/2024 6:31 PM [facility] Calcium 9.5 8.5 - 10.5 mg/dL LAB CHEMISTRY METHOD 10/02/2024 6:31 PM EDT [facility] AST (SGOT) 24 10 - 42 unit/L LAB CHEMISTRY METHOD 10/02/2024 6:31 PM EDT [facility] ALT (SGPT) 43 10 - 60 unit/L LAB CHEMISTRY METHOD 10/02/2024 6:31 PM EDT [facility] Alkaline Phosphatase 89 42 - 121 unit/L LAB CHEMISTRY METHOD 10/02/2024 6:31 PM EDT [facility] Total Protein 7.0 6.0 - 8.0 g/dL LAB CHEMISTRY METHOD 10/02/2024 6:31 PM EDT [facility] Albumin 3.6 3.2 - 5.0 g/dL LAB CHEMISTRY METHOD 10/02/2024 6:31 PM EDT [facility] Total Bilirubin 0.2 0.0 - 1.4 mg/dL LAB CHEMISTRY METHOD 10/02/2024 6:31 PM EDT [facility] Blood Venous blood specimen / Unknown Venipuncture / Unknown 10/02/2024 5:49 PM EDT 10/02/2024 6:01 PM EDT Michelle Galloway DO LAB BLOOD ORDERABLES Demi zoya Result [facility] [address] [place] [address], from Last 3 Months Insurance [facility] [employer] Care Teams Geospatial Applications Developer Relationship Specialty Start Date End Date Marleen Jovel MD [address] [place] [id number] PCP - General Family Medicine 10/02/24
--- OUTSIDE RECORDS SUMMARY | 2024-10-07 13:52 | XMS_ITS | Encounter Summary ---
Author Organization [employer] Address [address] [place] [address] Care Team Providers Care Fire Department Marine Engineer Name Role Phone Marleen Jovel MD Primary Care Provider [phone] Reason for Visit * Reason Comments Hypertension Encounter Details Date Type Department Care Team (Late st Contact Info) Description 10/02/2024 7:39 PM EDT - 10/02/2024 9:05 PM EDT Emergency [facility] [address] [place] [address] Chest pain, unspecified type (Primary Dx) Discharge Disposition: Home or Self Care Social History Tobacco Use Types Packs/Day Years Used Date Smoking Tobacco: Never Assessed Sex and Gender Information Value Date Recorded Sex Assigned at Male 10/02/2024 7:49 PM EDT Legal Sex Male 4:35 AM EST Gender Identity Male 10/02/2024 7:49 PM EDT Sexual Orientation Straight 10/02/2024 7: 49 PM EDT documented as of this encounter Last Filed Vital Signs Vital Sign Reading [...] Mass Index 32.89 10/02/2024 5:31 PM EDT documented in this encounter Functional Status * Are you deaf or do you have serious difficulty hearing? Answer Date of Assessment Author No 10/02/2024 7:47 PM EDT Kodi Snyder RN * Are you blind or do you have serious difficulty seeing, even when wearing glasses? Answer Date of Assessment Author No 10/02/2024 7:47 PM EDT Kodi Snyder RN * Do you have serious difficulty walking or climbing stairs? Answer Date of Assessment Author No 10/02/2024 7:47 PM EDT Kodi Snyder RN * Do you have serious difficulty dressing or bathing? Answer Date of Assessment Author No 10/02/2024 7:47 PM EDT Kodi Snyder RN * Because of a physical, mental, or emotional condition, do you have serious difficulty doing errandsalone such as visiting the doctor? Answer Date of Assessment Author No 10/02/2024 7:47 PM EDT Kodi Snyder RN documented as of this encounter Mental Status * Because of a physical, mental, or emotional condition, do you have serious difficulty concentrating, remembering, or making decisions? (5 years old or older) Answer Entry Date Author No 10/02/2024 7:47 PM EDT Kodi Snyder RN documented in this encounter Discharge Instructions * Discharge Instructions* JERE Abraham - 10/02/2024 8:51 PM EDT Please follow-up with your primary care provider within 7 to 10 days for a reevaluation of your symptoms. Please continue taking your medications as previously prescribed. Follow up with your primary provider. Call tomorrow for appointment. Return to Emergency Department if symptoms worsen, do not improve, or any other concern. Get well soon! Thank you for coming to the [facility] Emergency Department today. Our entire team works together to provide you with the best care possible. Examination and treatment you received in the emergency department has been rendered on an EMERGENCY basis only. It is not intended to be a substitute for or an effort to provide complete medical care. You should follow-up with your primary care provider. Please report to your physician any new or remaining problems, because it is impossible to recognize and treat all elements of injury or illness in a single emergency department visit. In the event that you're unable to obtain a followup appointment in a timely fashion, OR you are not getting any better, OR you are getting worse, OR you develop any symptoms of concern, please return here immediately for further evaluation. The emergency department is open 24 hours a day, 7 days aweek. Your discharge report is based on information that was available when you were in the emergency department. If you do not have a primary care provider, please contact one of the following to make arrangements to follow up. Luisa Fulton Luisa [place] Luisa Harden Luisa Archibald * Attachments The following attachments cannot be sent through Care Everywhere. * Chest Pain (Mozambican) documented in this encounter Discharge Disposition Disposition Code Departure Means Destination Comment s Home or Self Care documented in this encounter Progress Notes * Carmen Luna RN - 10/02/2024 5:32 PM EDT PT C/O INTERMITTENT CHEST PAIN WITH HTN SINCE YESTERDAY. PT STATES HE TOOK HIS BLOOD PRESSURE 159/95 AND TOOK HIS BLOOD PRESSURE MEDICATION. INTERMITTENT DIZZINESS AND SOB. * JERE Abraham - 10/02/2024 5:25 PM EDT Emergency Medicine Note Patient Name: Howard Carson Initial Evaluation: 10/02/2024 : 1965 Patient's PCP: Marleen Joevl MD Emergency Physician: JERE Abraham History of Present Illness Chief Complaint: Chief Complaint Patient presents with Hypertension This is a 59-year-old Mozambican-speaking male with a past medical history of hypertension, asthma andgastroesophageal reflux disease presenting for evaluation of elevated blood pressures at home that started at 3 PM today coupled with chest pain that started yesterday. Patient states that the chest p ain started yesterday afternoon, comes and goes and is a burning and stabbing sensation. Patient states that his chest pain will last less than 2 minutes at a time and the last time he felt this painwas at 3 PM today, which is why he checked his blood pressure. Patient states his blood pressure athome was 150/95. Patient denies having any fevers, chills, cough, shortness of breath, nausea, vomiting, abdominal pain or back pain. Patient states that he is compliant with his blood pressure medication daily. publication designer used: Yes (Mozambican) ROS: I have performed a ROS with the pertinent positives and negatives documented in the history ofpresent illness. Previous History Past Medical History: Diagnosis Date Hypertension History reviewed. No pertinent surgical history. No family history on file. has No Known Allergies. No current facility-administered medications on file prior to encounter. No current outpatient medications on file prior to encounter. Physical Exam ED Triage Vitals Temp Heart Rate Resp BP 10/02/24 1731 10/02/24 1731 10/02/24 17310/02/24 173 36.4 ??C (97.5 ??F) 88 20 (!) 132/94 SpO2 Temp Source Heart Rate Source Patient Position 10/02/24173010/02/24173010/02/24194410/02/241944 99 % Oral Left Lying BP Location FiO2 (%) 10/02/241944 -- Left arm Physical Exam General: awake, calm, cooperative, no apparent distress, vital signs reviewed Skin: warm, dry, no diaphoresis Neck: soft/supple, full range of motion, no nuchal rigidity Respiratory: clear to auscultation bilaterally throughout, no tachypnea Cardiovascular: regular rate and rhythm, no murmur Gastrointestinal: soft, nontender, abdomen is nondistended Neurological: alert and oriented X3, no focal deficits Psychiatric: stable mood and affect, fluid speech, good eye contact and appropriate demeanor Results Labs Reviewed COMPREHENSIVE METABOLIC PANEL - Abnormal Result Value Sodium 141 Potassium 3.8 Chloride 109 CO2 26 Anion Gap 6 Glucose 124 (*) BUN 19 Creatinine 0.89 eGFR 98 BUN/Creatinine Ratio 21.3 Calcium 9.5 AST (SGOT) 24 ALT (SGPT) 43 Alkaline Phosphatase 89 Total Protein 7.0 Albumin 3.6 Total Bilirubin 0.2 B-TYPE NATRIURETIC PEPTIDE - Abnormal BNP 114 (*) CBC WITH AUTO DIFFERENTIAL - Abnormal WBC 7.2 RBC 4.70 Hemoglobin 15.2 Hematocrit 46.0 MCV 97.0 MCH 32.1 (*) MCHC 33.0 RDW 12.8 Platelets 234 MPV 10.5 NRBC 0.0 NRBC Absolute 0.00 Neutrophils Relative 59.2 Lymphocytes Relative 27.6 Monocytes Relative 9.0 Eosinophils Relative 3.3 Basophils Relative 0.6 Immature Granulocytes Relative 0.3 Neutrophils Absolute 4.26 Lymphocytes Absolute 1.99 Monocytes Absolute 0.65 Eosinophils Absolute 0.24 Basophils Absolute 0.04 Immature Granulocytes Absolute 0.02 TROPONIN I HIGH SENSITIVITY - Normal High Sensitivity Troponin I 10 Narrative: High levels of biotin in samples may falsely decrease hsTroponin values. Use caution when interpreting hsTroponin results in patients taking biotin who exhibit renal impairment (eGFR <60) or in patients taking more than 20 mg/day of biotin. TROPONIN I HIGH SENSITIVITY - Normal High Sensitivity Troponin I 9 Narrative: High levels of biotin in samples may falsely decrease hsTroponin values. Use caution when interpreting hsTroponin results in patients taking biotin who exhibit renal impairment (eGFR <60) or in patients taking more than 20 mg/day of biotin. LIPASE - Normal Lipase 28 MAGNESIUM - Normal Magnesium 2.1 CBC AND DIFFERENTIAL Narrative: The following orders were created for panel order CBC and differential. Procedure Abnormality Status --------- ------ CBC auto differential[[id number]] Abnormal Final result Please view results for these tests on the individual orders. Abnormal Labs Reviewed COMPREHENSIVE METABOLIC PANEL - Abnormal; Notable for the following components: Result Value Glucose 124 (*) All other components within normal limits B-TYPE NATRIURETIC PEPTIDE - Abnormal; Notable for the following components: BNP 114 (*) All other components within normal limits CBC WITH AUTO DIFFERENTIAL - Abnormal; Notable for the following components: MCH 32.1 (*) All other components within normal limits XR Chest 2 Views (Results Pending) I have discussed the incidental/abnormal imaging and/or lab abnormalities with the patient and haveinstructed them the need for further evaluation and workup with their primary care doctor. The laboratory results, imaging results and other diagnostic exam results were reviewed in the EMR. EKG Interpretation Normal sinus rhythm rate of 79 bpm Normal sinus rhythm rate of 77 bpm Critical Care Time None ? Differential Diagnosis Hypertension Chest pain ACS Angina Pneumonia CHF Medical Decision Making Medical Decision Making Patient is evaluated. He is in no acute distress and is chest pain free at this time. His EKG is nonischemic. Patient will be given aspirin while his laboratories and imaging are pending. Medications aspirin chewable tablet 324 mg (324 mg oral Given 10/02/242015) ED Course as of 10/02/242052Oct 02, 20242049 Patient's laboratories and imaging are reviewed. Patient will be discharged home and instructed follow-up with his primary care provider as an outpatient. [RO] ED Course User Index [RO] JERE Abraham Clinical Impressions as of 10/02/242052 Chest pain, unspecified type Procedures Procedures Diagnosis 1. Chest pain, unspecified type Disposition Discharge ED Prescriptions None Physician Attestation JERE Abraham 10/02/242010 JERE Abraham 10/02/242052 Cosigned by Michelle Galloway DO at 10/02/2024 10:39 PM EDT documented in this encounter Plan of Treatment Not on file documented as of this encounter Procedures Procedure Name Priority Date/Time Associated Diagnosis Comments ECG ANNOTATED 10/03/2024 ECG 12-LEAD STAT 10/02/2024 8:09 PM EDT XR CHEST 2 VIEWS STAT 10/02/2024 7:26 PM EDT TROPONIN I HIGH SENSITIVITY STAT 10/02/2024 7:16 PM EDT TROPONIN I HIGH SENSITIVITY STAT 10/02/2024 5:49 PM EDT CBC WITH AUTO DIFFERENTIAL STAT 10/02/2024 5:49 PM EDT CBC AND DIFFERENTIAL STAT 10/02/2024 5:49 PM EDT B-TYPE NATRIURETIC PEPTIDE STAT 10/02/2024 5:49 PM EDT MAGNESIUM STAT 10/02/2024 5:49 PM EDT LIPASE STAT 10/02/2024 5:49 PM EDT COMPREHENSIVE METABOLIC PANEL STAT 10/02/2024 5:49 PM EDT ECG 12-LEAD STAT 10/02/2024 5:37 PM EDT documented in this encounter Results * ECG-Annotated (10/03/2024) us Provider Onbase MD ECG ORDERABLES Final Result * ECG 12 lead (10/02/2024 8:09 PM EDT) Ventricular Rate ECG 77 BPM GEMUSE Atrial Rate 77 BPM GEMUSE P-R Interval 126 ms GEMUSE QRS Duration 88 ms GEMUSE Q-T Interval 388 ms GEMUSE QTc 439 ms GEMUSE P Wave [place] 22 degrees GEMUSE R [place] -31 degrees GEMUSE T [place] 10 degrees GEMUSE ECG Interpretation Normal sinus [...] Signed Date: 10/03/2024 08:40 ET Workstation ID: [id number] Transcribed By: Self Edit Transcribed Date: 10/03/2024 [...] Signed Date: 10/03/2024 08:40 ET Workstation ID: [id number] Transcribed By: Self Edit Transcribed Date: 10/03/2024 08:39 ET us Michelle Beasleyny Nilesh DO IMG XR PROCEDURES Final R esult * Troponin I high sensitivity (10/02/2024 7:16 PM EDT) High Sensitivity Troponin I 9 <=79 ng/L LAB CHEMISTRY METHOD 10/02/2024 8:01 PM EDT [facility] Blood Venous blood specimen / Unknown Venipuncture / Unknown 10/02/2024 7:16 PM EDT 10/02/2024 7:33 PM EDT Narrative [facility] - 10/02/2024 8:01 PM EDT High levels of biotin in samples may falsely decrease hsTroponin values. ??Use caution when interpreting hsTroponin results in patients taking biotin who exhibit renal impairment (eGFR <60) or in patients taking more than 20 mg/day of biotin. Michelle Galloway DO LAB BLOOD ORDERABLES Demi l Result [facility] [address] [place] [address], [place] [phone] * (ABNORMAL) CBC auto differential (10/02/2024 5:49 PM EDT) WBC 7.2 4.8 - 10.8 K/mcL LAB HEMETOLOGY METHOD 10/02/2024 6:11 PM EDT [facility] RBC 4.70 4.50 - 5.50 M/mcL LAB HEMETOLOGY METHOD 10/02/2024 6:11 PM EDT [facility] Hemoglobin 15.2 13.5 - 17.5 g/dL LAB HEMETOLOGY METHOD 10/02/2024 6:11 PM EDT [facility] Hematocrit 46.0 42.0 - 54.0 % LAB HEMETOLOGY METHOD 10/02/2024 6:11 PM EDT [facility] MCV 97.0 79.0 - 98.0 FL LAB HEMETOLOGY METHOD 10/02/2024 6:11 PM EDT [facility] MCH 32.1(H) 27.0 - 32.0 pcg LAB HEMETOLOGY METHOD 10/02/2024 6:11 PM EDT [facility] MCHC 33.0 32.0 - 37.0 g/dL LAB HEMETOLOGY METHOD 10/02/2024 6:11 PM EDT [facility] RDW 12.8 11.0 - 15.0 % LAB HEMETOLOGY METHOD 10/02/2024 6:11 PM [facility] Platelets 234 130 - 400 K/mcL LAB HEMETOLOGY METHOD 10/02/2024 6:11 PM [facility] MPV 10.5 7.0 - 11.0 FL LAB HEMETOLOGY METHOD 10/02/2024 6:11 PM [facility] NRBC 0.0 <1.0 % LAB HEMETOLOGY METHOD 10/02/2024 6:11 PM [facility] NRBC Absolute 0.00 <0.10 K/mcL LAB HEMETOLOGY METHOD 10/02/2024 6:11 PM [facility] Neutrophils Relative 59.2 % LAB HEMETOLOGY METHOD 10/02/2024 6:11 PM [facility] Lymphocytes Relative 27.6 % LAB HEMETOLOGY METHOD 10/02/2024 6:11 PM [facility] Monocytes Relative 9.0 % LAB HEMETOLOGY METHOD 10/02/2024 6:11 PM [facility] Eosinophils Relative 3.3 % LAB HEMETOLOGY METHOD 10/02/2024 6:11 PM [facility] Basophils Relative 0.6 % LAB HEMETOLOGY METHOD 10/02/2024 6:11 PM [facility] Immature Granulocytes Relative 0.3 % LAB HEMETOLOGY METHOD 10/02/2024 6:11 PM [facility] Neutrophils Absolute 4.26 1.50 - 7.00 K/mcL LAB HEMETOLOGY METHOD 10/02/2024 6:11 PM [facility] Lymphocytes Absolute 1.99 1.00 - 5.00 K/mcL LAB HEMETOLOGY METHOD 10/02/2024 6:11 PM [facility] Monocytes Absolute 0.65 0.20 - 1.00 K/mcL LAB HEMETOLOGY METHOD 10/02/2024 6:11 PM EDT [facility] Eosinophils Absolute 0.24 0.00 - 0.50 K/[facility] LAB HEMETOLOGY METHOD 10/02/2024 6:11 PM EDT [facility] Basophils Absolute 0.04 0.00 - 0.20 K/[facility] LAB HEMETOLOGY METHOD 10/02/2024 6:11 PM EDT [facility] Immature Granulocytes Absolute 0.02 0.00 - 0.03 K/[facility] LAB HEMETOLOGY METHOD 10/02/2024 6:11 PM EDT [facility] Blood Venous blood specimen / Unknown Venipuncture / Unknown 10/02/2024 5:49 PM EDT 10/02/2024 6:00 PM EDT Michelle Tray Arnaud Galloway LAB BLOOD ORDERABLES Demi l Result Performing Organization Address City/[facility]/ZIP Co de Phone Number [facility] [address] [place] [address], [place] [phone] * (ABNORMAL) B-type natriuretic peptide (10/02/2024 5:49 PM EDT) Pathologist [facility] BNP 114(H) <=100 pcg/mL LAB CHEMISTRY METHOD 10/02/2024 6:37 PM EDT [facility] Blood Venous blood specimen / Unknown Venipuncture / Unknown 10/02/2024 5:49 PM EDT 10/02/2024 6:01 PM EDT [id number] Arnaud Meebo LAB BLOOD ORDERABLES Demi l Result [facility] [address] [place] [address], [place] [phone] * Magnesium (10/02/2024 5:49 PM EDT) Magnesium 2.1 1.9 - 2.6 mg/dL LAB CHEMISTRY METHOD 10/02/2024 6:31 PM EDT [facility] Blood Venous blood specimen / Unknown Venipuncture / Unknown 10/02/2024 5:49 PM EDT 10/02/2024 6:01 PM EDT Michelle Galloway LAB BLOOD ORDERABLES Edmi l Result [facility] [address] [place] [address], [place] [phone] * Lipase (10/02/2024 5:49 PM EDT) [facility] Lipase 28 13 - 75 unit/L LAB CHEMISTRY METHOD 10/02/2024 6:33 PM EDT [facility] Blood Venous blood specimen / Unknown Venipuncture / Unknown 10/02/2024 5:49 PM EDT 10/02/2024 6:01 PM EDT Michelle Glaloway LAB BLOOD ORDERABLES Demi l Result Performing Organization Address [facility]/ZIP Co de Phone Number [facility] [address] [place] [address], [place] [phone] * (ABNORMAL) Comprehensive metabolic panel (10/02/2024 5:49 PM EDT) [facility] Sodium 141 133 - 145 mmol/L LAB CHEMISTRY METHOD 10/02/2024 6:31 PM EDT [facility] Potassium 3.8 3.5 - 5.5 mmol/L LAB CHEMISTRY METHOD 10/02/2024 6:31 PM EDT [facility] Chloride 109 96 - 110 mmol/L LAB CHEMISTRY METHOD 10/02/2024 6:31 PM EDT [facility] CO2 26 21 - 32 mmol/L LAB CHEMISTRY METHOD 10/02/2024 6:31 PM [facility] Anion Gap 6 3 - 11 LAB CHEMISTRY METHOD 10/02/2024 6:31 PM [facility] Glucose 124(H) 70 - 100 mg/dL LAB CHEMISTRY METHOD 10/02/2024 6:31 PM [facility] BUN 19 5 - 25 mg/dL LAB CHEMISTRY METHOD 10/02/2024 6:31 PM [facility] Creatinine 0.89 0.70 - 1.30 mg/dL LAB CHEMISTRY METHOD 10/02/2024 6:31 PM [facility] eGFR 98 >=60 mL/min/1. 73m2 LAB CHEMISTRY METHOD 10/02/2024 6:31 PM [facility] Comment:Calculation based on the??Chronic Kidney Disease Epidemiology Collaboration (CKD-EPI) equation refit??without adjustment for race. BUN/Creatinine Ratio 21.3 LAB CHEMISTRY METHOD 10/02/2024 6:31 PM [facility] Calcium 9.5 8.5 - 10.5 mg/dL LAB CHEMISTRY METHOD 10/02/2024 6:31 PM [facility] AST (SGOT) 24 10 - 42 unit/L LAB CHEMISTRY METHOD 10/02/2024 6:31 PM [facility] ALT (SGPT) 43 10 - 60 unit/L LAB CHEMISTRY METHOD 10/02/2024 6:31 PM [facility] Alkaline Phosphatase 89 42 - 121 unit/L LAB CHEMISTRY METHOD 10/02/2024 6:31 PM [facility] Total Protein 7.0 6.0 - 8.0 g/dL LAB CHEMISTRY METHOD 10/02/2024 6:31 PM [facility] Albumin 3.6 3.2 - 5.0 g/dL LAB CHEMISTRY METHOD 10/02/2024 6:31 PM [facility] Total Bilirubin 0.2 0.0 - 1.4 mg/dL LAB CHEMISTRY METHOD 10/02/2024 6:31 PM EDT [facility] Blood Venous blood specimen / Unknown Venipuncture / Unknown 10/02/2024 5:49 PM EDT 10/02/2024 6:[address] [facility] Tray Galloway LAB BLOOD ORDERABLES Demi l Result Performing Organization Address [facility] Co de Phone Number [facility] [address] [place] [address], [place] [phone] * Troponin I high sensitivity (10/02/2024 5:49 PM EDT) [facility] High Sensitivity Troponin I 10 <=79 ng/L LAB CHEMISTRY METHOD 10/02/2024 6:28 PM EDT [facility] Blood Venous blood specimen / Unknown Venipuncture / Unknown 10/02/2024 5:49 PM EDT 10/02/2024 6:00 PM EDT Narrative [facility] - 10/02/2024 6:28 PM EDT High levels of biotin in samples may falsely decrease hsTroponin values. ??Use caution when interpreting hsTroponin results in patients taking biotin who exhibit renal impairment (eGFR <60) or in patients taking more than 20 mg/day of biotin. Michelle Galloway LAB BLOOD ORDERABLES Demi l Result Performing Organization Address [facility] de Phone Number [facility] [address] [place] [address], [place] [phone] * ECG 12 lead (10/02/2024 5:37 PM EDT) [facility] Ventricular Rate ECG 79 BPM GEMUSE Atrial Rate 79 BPM GEMUSE P-R Interval 142 ms GEMUSE QRS Duration 88 ms GEMUSE Q-T Interval 382 ms GEMUSE QTc 438 ms GEMUSE P Wave [place] 22 degrees GEMUSE R [place] -25 degrees GEMUSE T [place] 13 degrees GEMUSE ECG Interpretation Normal sinus rhythm Normal ECG When compared with ECG of 27-MAR-2022 09:58, No significant change was found Confirmed by MARIN CARTAGENA ([id number]) on 10/03/2024 11:03:28 AM GEMUSE 10/02/2024 5:37 PM EDT 10/03/2024 11:03 AM EDT us Michelle Lares Galloway DO ECG ORDERABLES Final Res ult GEMUSE documented in this encounter Visit Diagnoses Diagnosis Chest pain, unspecified type- Primary documented in this encounter Administered Medications Inactive Administered Medications - up to 3 most recent administrations Medication Order MAR Action Action Date Dose Rate Site aspirin chewable tablet 324 mg 324 mg, oral, Once, On Sat10/02/24 at 2005, For 1 dose Given 10/02/2024 8:16 PM EDT 324 mg documented in this encounter Active and Recently Administered Medications Times are shown in EDT. Scheduled Medication Order 09/30/2024 10/01/2024 10/02/2024 aspirin chewable tablet 324 mg (COMPLETED) 324 mg, oral, Once, On Sat10/02/24 at 2005, For 1 dose 2015 (Given - Provid er: Meghan Snyder RN) documented in this encounter Orders Medications Ordered That Kp ht Not Have Been Administered Count Last Ordered Date First Ordered Date nitroglycerin (NITRO-BID) 2 % ointment - ADS Override Pull 1 10/02/2024 documented in this encounter Care Teams Fire Department Marine Engineer Relationship Specialty Start Date End Date Marleen Jovel MD [address] [place] [address] PCP - General Family Medicine 10/02/24 documented as of this encounter
--- OUTSIDE RECORDS SUMMARY | 2024-10-07 13:52 | XMS_ITS | Encounter Summary ---
Author Organization [employer] Address [address] [place] [address] Care Team Providers Care Telesales Advisor Name Role Phone Marleen Jovel MD Primary Care Provider [phone] Encounter Details Date Type Department Care Team (Late st Contact Info) Description 10/05/2024 Orders Only [facility] [address] [place] [address] Provider, MD Wang Social History Tobacco Use Types Packs/Day Years [...] Description 10/15/2024 3:00 PM EDT Clinical Support [facility] [address] [place] [address] 11/26/2024 11:00 AM EDT Nurse Only [facility] [address] [place] [address] documented as of this encounter Procedures Procedure Name Priority Date/Time Associated Diagnosis Comments ECG 12-LEAD Routine 10/02/2024 9:58 AM EDT ECG 12-LEAD Routine 10/02/2024 9:09 AM EDT documented in this encounter Results * ECG 12 lead (10/02/2024 9:58 AM EDT) us Historical Provider MD ECG ORDERABLES Final Res ult * ECG 12 lead (10/02/2024 9:09 AM EDT) us Historical Provider MD ECG ORDERABLES Final Res ult documented in this encounter Visit Diagnoses Not on filedocumented in this encounter Additional Health Concerns Assessment Noted Time PHQ-9 Depression Total Score: 0 10/28/19 9:20 AM EDT documented as of this encounter Care Teams Telesales Advisor Relationship Specialty Start Date End Date Marleen Jovel MD [address] [place] [address] PCP - General Family Medicine 10/28/23 documented as of this encounter
--- OUTSIDE RECORDS SUMMARY | 2024-10-07 13:53 | XMS_ITS | Encounter Summary ---
Author Organization [employer] Address [address] [facility] [address] [place] [address] Care Team Providers Care Manager Support Name Role Phone Marleen Jovel MD Primary Care Provider [phone] Reason for Visit * Reason Comments Med Refill Encounter Details Date Type Department Care Team ([facility] st Contact Info) Description 07/31/2024 Refill [facility] MED & PEDS [address] [place], [place] [phone] Marleen Jovel MD [address] [place] [address] Social History Tobacco Use Types Packs/Day Years [...] 3:00 PM EDT Clinical Support [facility] MED & PEDS [address] [place] [address] 11/26/2024 11:00 AM EDT Nurse Only [facility] MED & PEDS [address] [place] [address] documented as of this encounter Visit Diagnoses Not on filedocumented in this encounter Additional Health Concerns Assessment Noted Time PHQ-9 Depression Total Score: 0 10/28/19 9:20 AM EDT documented as of this encounter Care Teams Manager Support Relationship Specialty Start Date End Date Marleen Jovel MD [address] [place] [address] PCP - General Family Medicine 10/28/23 documented as of this encounter
--- OUTSIDE RECORDS SUMMARY | 2024-10-07 13:53 | XMS_ITS | Clinical Summary ---
Author Organization [employer] Address [address] [facility] 7t [place] [address] Care Team Providers Care Retail Assistant Name Role Phone Marleen Jovel MD Primary Care Provider [phone] Allergies No known active allergies Medications tiZANidine [...] referral in the system. Will send to [facility]. Please attach media from ECG done in [...] Encounters Date Type Department Care Team Description 10/05/2024 Orders Only [facility] MED & PEDS [address] [place] [address] Provider, MD Wang 09/24/2024 Orders Only [facility] External Provider, [facility] 09/23/2024 Orders Only [facility] [address] [place] [address] Nhung Bearden MD 09/23/2024 Telephone [facility] [address] [place] [address] Marleen Jovel MD Medication Question 09/17/2024 10:00 AM EDT Office Visit [facility] [address] [place] [address] Nhung Bearden MD Essential hypertension (Primary Dx); Umbilical hernia without obstruction and without gangrene; Rhinosinusitis; Allergic conjunctivitis of both eyes 09/17/2024 Travel 08/04/2024 Refill [facility] MED [facility]ED[facility] [address] [place] [address] Marleen Jovel MD 07/31/2024 Refill [facility] [address] [place] [address] Marleen Jovel MD 07/20/2024 Orders Only [facility] External Provider, [facility] 07/18/2024 Orders Only GENERIC EXTERNAL DATA DEPARTMENT Provider, Generic External Data from Last 3 Months Immunizations Name Administration [...] Upcoming Encounters Date Type Department Care Team ([facility] st Contact Info) Description 10/15/2024 3:00 PM EDT Clinical Support [facility] MED [facility]ED[facility] [address] [place] [address] 11/26/2024 11:00 AM EDT Nurse Only [facility]ED[facility] [address] [place] [address] Health Maintenance Due Date Last Done Comments [...] ECG 12-LEAD Routine 10/02/2024 9:09 AM EDT US BLADDER Routine 09/24/2024 3:17 PM EDT METANEPHRINES, FRACT, FREE, LC/MS/MS, PLASMA Routine 09/23/2024 11:44 AM EDT ALDOSTERONE/PLASMA RENIN ACTIVITY RATIO, LC/MS/MS Routine 09/23/2024 11:44 AM EDT Essential hypertension US BLADDER Routine 07/22/2024 3:24 PM EST PSA, FREE AND TOTAL Routine 07/18/2024 1 2:25 PM EST PSA, TOTAL WITH REFLEX TO PSA, FREE Routine 07/18/2024 10:47 AM EST HEPATITIS C AB W/REFL TO [...] Recently Relevant to Health Maintenance Results * ECG 12 lead (10/02/2024 9:58 AM EDT) Only the most recent of2 resultswithin the time period is included. us Historical Provider ECG ORDERABLES Final Res ult * US BLADDER (09/24/2024 3:17 PM EDT) Only the most recent of2 resultswithin the time period is included. Anatomical Region Laterality Modality Abdomen Ultrasound 09/24/2024 3:17 PM EDT Narrative 09/25/2024 7:43 AM EDT ? [facility] ?[address] ?[place] [address] ? Ultrasound Report ? Signed ? Patient: Alli Ortiz,Howard ?MR#: [id number] ?? [id number] ? : 1965 ?Acct:[id number] ? Age/Sex: 59 / M ?ADM Date: 04/03/25 ? Loc: HO.US ? Attending Dr: Kaley MIGUEL ? Ordering Physician: Kaley Burogs ?? Date of Service: 09/24/24 ?? Procedure(s): US bladder ?? Accession Number(s): [id number] ? cc: Kaley Burgos; Marleen Jovel MD [...] DD/ 1517 ? TD/TT: 09/24/24 1523 ? 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 Procedure Note Farzana Walls - 09/25/[address] [address] Ultrasound Report Signed Patient: Howard JuniorMR#: [id number] : 1965Acct:[id number] Age/Sex: 59 / MADM Date: 09/24/24 Loc: HO.US Attending Dr: Kaley MIGUEL Ordering Physician: Kaley Burgos Date of Service: 09/24/24 Procedure(s): US bladder Accession Number(s): [id number] cc: Kaley Burgos-; Marleen Jovel MD EXAMINATION: US BLADDER HISTORY: [...] 09/25/24 0741 DD/ 1517 TD/TT: 09/24/24 1523 Commercial Truck Driver: [facility] External Provider IMG US PROCEDURES Final Result * Metanephrines, Fractionated, Free, LC/MS/MS, Plasma (09/23/2024 11:44 AM EDT) Metanephrine, Free 40 <=57 pg/mL [facility] Comment:This test was develo ped and its analytical performancecharacteristics have been determined by [facility], [place]. It hasnot been cleared or approved by the U.S. Food and DrugAdministration. This assay has been validated pursuantto the CLIA regulations and is used for clinicalpurposes. Normetanephrine, Free 130 <=148 pg/mL [facility] Comment:This test was develo ped and its analytical performancecharacteristics have been determined by [facility], [place]. It hasnot been cleared or approved by the U.S. Food and DrugAdministration. This assay has been validated pursuantto the CLIA regulations and is used for clinicalpurposes. Total, Free (MN+NMN) 170 <=205 pg/mL [facility] Comment: For additional information, please refer tohttp://education.[employer]/faq/MetFractFree(This link is being provided for informational/educatioinformational/educational purposes only.)Elevations >4-fold upper reference range: stronglysuggestive of a pheochromocytoma(1).Elevations >1- 4-fold upper reference range:significant but not diagnostic, may be due tomedications or stress. Suggest running 24 hr urinefractionated metanephrines and/or serum Chromagranin Afor confirmation.Reference:(1)Chau Bhakta et al, Plasma Chromogranin Aor Urine Fractionated Metanephrines Follow-Up TestingImproves the Diagnostic Accuracy of Plasma FractionatedMetanephrines for Pheochromocytoma. The Journal ofClinical Endocrinology # Metabolism 93(1), 91-95, 2008.This test was developed and its analytical performancecharacteristics have been determined by [facility] [place], [place]. It hasnot been cleared or approved by the U.S. Food and DrugAdministration. This assay has been validated pursuantto the CLIA regulations and is used for clinicalpurposes.THIS TEST WAS PERFORMED AT:[employer] [place], [place] ??[phone] YORK MD,PHD 09/23/2024 11:4 4 AM EDT 09/23/2024 11:44 AM EDT us Nhung Bearden MD LAB BLOOD ORDERABLES Final Result [facility] [address] [place] [phone] * Aldosterone/Plasma Renin Activity Ratio, LC/MS/MS (09/23/2024 11:44 AM EDT) Pathologist [facility] Aldosterone 4 see note ng/dL [facility] Comment:Unable to flag abnor mal result(s), please refer to reference range(s) below:Adult Reference Ranges for Aldosterone, LC/MS/MS: Upright 8:00 - 10:00 am < or = 28 ng/dL Upright 4:00 - 6:00 pm < or = 21 ng/dL Supine 8:00 - 10:00 am 3 - 16 ng/dLTHIS TEST WAS PERFORMED AT:[employer]/[facility] [address] [address]LMQXGHLMARÍA YORK MD,PHD Plasma Renin Activity 0.80 0.25 - 5.82 ng/mL/h [facility] Aldosterone/Renin Ratio 5.0 0.9 - 28.9 Ratio [facility] Comment:This test was develo ped and its analytical performancecharacteristics have been determined by [facility], [place]. It hasnot been cleared or approved by the U.S. Food and DrugAdministration. This assay has been validated pursuantto the CLIA regulations and is used for clinicalpurposes.THIS TEST WAS PERFORMED AT:[employer]/[facility] [address] [place] [address]ZZKTYNQMARÍA YORK MD,PHD Blood Venous blood specimen / Unknown 09/23/2024 11:44 AM EDT 09/23/2024 11:44 AM EDT us Nhung Bearden MD LAB BLOOD ORDERABLES Final Result [facility] [address] [place] [phone] * (ABNORMAL) PSA, Free and Total (07/18/2024 12:25 PM EST) Pathologist [facility] PSA, Total 4.1(A) < OR = 4.0 ng/mL [facility] PSA % Free 17(A) >25 % (calc) [facility] Comment: PSA(ng/mL) ?Free PSA(%) ? Estimated(x) Probability ? of Cancer(as%)0-2.5 ?(*) ? Approx. 12.6-4.0(1) ? 0-27(2) ? 24(3)4.1-10(4) ?0-10 ?56 ? 11-15 ? 28 ? 16-20 ? 20 ? 21-25 ? 16 ? >or =26 ? 8>10(+) ? N/A ?>50References:(1)Bonifacio et al.:Urology 60: 469-474 (2002) ? (2)Nathalie.:J.Urol 168: 922-925 (2002) ?Free PSA(%) ?? Sensitivity(%) ??Specificity(%) ?< or = 25 ?85 ?19 ?< or = 30 ?93 ? 9 ? (3)Bonifacio et al.:ZAYDA 277: 8319-4064 (1996) ? (4)Catalona et al.:ZAYDA 279: 5460-4004 (1997)(x)These estimates vary with age, ethnicity, family [...] presence or absence ofdisease.THIS TEST WAS PERFORMED AT:[employer] [address] ??[phone] SANCHEZ MD PSA, Free 0.7 ng/mL [facility] 07/18/2024 12:2 5 PM EST 07/18/2024 12:25 PM EST us Generic External Data Provider LAB BLOOD ORDERAB LES Final Result [facility] [address] [place] [phone] * (ABNORMAL) PSA, Total With Reflex to PSA, Free (07/18/2024 10:47 AM EST) PSA,Total (Free>4and<10) 4.06(H) 0.00 - 4.00 ng/mL [facility] Comment:PSA methodology: Abb carmela Alinity i ChemiluminescentMicroparticle Immunoassay (CMIA) 07/18/2024 10:4 7 AM EST 07/18/2024 10:47 AM EST us Generic External Data Provider LAB BLOOD ORDERAB LES Final Result Performing Organization Address [facility]/ZIP Co de Phone Number [facility] [address] [place] [phone] * Hepatitis C Antibody with Reflex to HCV, RNA, Quantitative, Real-Time PCR (10/28/2023 10:49 AM EDT) Pathologist [facility] Hepatitis C Antibody Nonreactive Nonreactive [facility] Comment:Antibodies to HCV no t detected; does not exclude early acuteHCV infection. Blood Venous blood specimen / Unknown 10/28/2023 10:49 AM EDT 10/28/2023 2:07 PM EDT us Marleen Jovel MD LAB BLOOD ORDERABLES Final Re sult Performing Organization Address [facility] Co de Phone Number [facility] [address] [place] [phone] * HIV-1/2 Antigen and Antibodies, Fourth Generation, with Reflexes (10/28/2023 10:49 AM EDT) Pathologist [facility] HIV AB/AG Nonreactive Nonreactive [facility] Comment:HIV-1 p24 Ag and/or HIV-1/HIV-2 Ab not detected.A test result that is nonreactive does not exclude thepossibility of exposure to or infection with HIV-1 and/orHIV-2. Nonreactive results in this assay for individualswith prior exposure to HIV-1 and/or HIV-2 may be due toantigen and antibody levels that are below the limit ofdetection of this assay.The Giraldo Alinity HIV Ag/Ab Combo assay result andsupplemental assay results should be interpreted inconjunction with the patient's clinical presentation,history and other laboratory results. If the results areinconsistent with clinical evidence, additional testing issuggested to confirm the result. Blood Venous blood specimen / Unknown 10/28/2023 10:49 AM EDT 10/28/2023 2:07 PM EDT us Marleen Jovel MD LAB BLOOD ORDERABLES Final Re sult Performing Organization Address [facility] Co de Phone Number [facility] [address] [place] [phone] * (ABNORMAL) Lipid Panel, Standard (10/28/2023 10:49 AM EDT) Triglycerides 62 <150 mg/dL [facility] Comment:Desirable Triglyceri de: less than 150 mg/dLBorderline High Triglyceride 150-199 mg/dLHigh Triglyceride: 200-499 mg/dLVery High Triglyceride: greater than or equal to 5OO mg/dL Cholesterol 174 <200 mg/dL [facility] Comment:Desirable Cholestero l: less than 200 mg/dLBorderline High Cholesterol: 200-239 mg/dLHigh Cholesterol: greater than 239 mg/dL LDL Cholesterol Calculated 107(H) <100 mg/dL [facility] Comment:Desirable LDL: less than 100 mg/dLNear Optimal/Above Optimal LDL: 110- 129 mg/dLBorderline High LDL: 130-159 mg/dLHigh LDL: 160-189 mg/dLVery High LDL: greater than or equal to 190 mg/dL HDL Cholesterol 55 >40 mg/dL [facility] Comment:Desirable HDL: great er than 40 mg/dL Note: This HDL assay may give artificially low results in patients with liver disease. Blood Venous blood specimen / Unknown 10/28/2023 10:49 AM EDT 10/28/2023 2:07 PM EDT us Marleen Jovel MD LAB BLOOD ORDERABLES Final Re sult [facility] [address] [place] [phone] [phone] from Last 3 Months or Most Recently Relevant to Health Maintenance Insurance [facility] Care Teams Retail Assistant Relationship Specialty Start Date End Date Marleen Jovel MD [address] [place] [phone] PCP - General Family Medicine 10/28/23
== END 2024-10-07 12:08 | disposition home or self-care (01) ==
LOC: HO.HUSH 11:26
PROVIDERS: PCP Family Medicine; Visit Provider Nurse Practitioner Family
DX: R97.20 Elevated prostate specific antigen [PSA] (principal)
CPT/HCPCS: 99213; G2211

== ENCOUNTER → 2024-10-07 11:26 | Outpatient (BNVA) | payer OTHER, SELFPAY | PROVIDERS: PCP Family Medicine; Visit Provider Nurse Practitioner Family | DX: R97.20 Elevated prostate specific antigen [PSA] (principal) | CPT/HCPCS: 51798; 99212 ==

== ENCOUNTER 2024-10-07 12:11 | Outpatient (REF) | payer OTHER, SELFPAY ==
--- OUTSIDE RECORDS SUMMARY | 2024-10-07 14:31 | XMS_ITS | Encounter Summary ---
Author Organization [employer] Address [address] [facility] [address] [place] [address] Care Team Providers Care Cooperative Extension Agent Name Role Phone Marleen Jovel MD Primary Care Provider [phone] Encounter Details Date Type Department Care Team (Late st Contact Info) Description 10/05/2024 Orders Only [facility] MED & PEDS [address] [place] [address] Provider, MD Wang Social History Tobacco Use [...] 3:00 PM EDT Clinical Support [facility] MED & PEDS [address] [place] [address] 11/26/2024 11:00 AM EDT Nurse Only [facility] MED & PEDS [address] [place] [address] documented as of this encounter Procedures Procedure [...] documented as of this encounter Care Teams Cooperative Extension Agent Relationship Specialty Start Date End Date Marleen Jovel MD [address] [place] [address] PCP - General Family Medicine 10/28/23 documented as of this encounter
--- OUTSIDE RECORDS SUMMARY | 2024-10-07 14:32 | XMS_ITS | Clinical Summary ---
Author Organization [facility] Address [address] [place] [address] Phone Care Team Providers Care Venetian Blind Installer Name Role Phone Marleen Jovel MD Primary Care Provider Allergies No known active allergies Medications No known medications Active Problems No known active problems Encounters Date Type Department Care Team Description 10/02/2024 7:39 PM EDT - 10/02/2024 9:05 PM EDT Emergency [facility] Emergency [address] [place] [address] Chest pain, unspecified type (Primary [...] GEMUSE QTc 439 ms GEMUSE P Wave [place] 22 degrees GEMUSE R [place] -31 degrees GEMUSE T [place] 10 degrees GEMUSE ECG Interpretation Normal sinus [...] Signed Date: 10/03/2024 08:40 ET Workstation ID: [id number] Transcribed By: Self Edit Transcribed Date: 10/03/2024 [...] Signed Date: 10/03/2024 08:40 ET Workstation ID: [id number] Transcribed By: Self Edit Transcribed Date: 10/03/2024 08:39 ET Michelle Galloway DO IMG XR PROCEDURES Final R esult * Troponin I high sensitivity (10/02/2024 7:16 PM EDT) Only the most recent of2 resultswithin the time period is included. [facility] High Sensitivity Troponin I 9 <=79 ng/L LAB CHEMISTRY METHOD 10/02/2024 8:01 PM EDT [facility] Blood [...] l Result [facility] [address] [place] [address], [place] [phone] * (ABNORMAL) CBC auto differential (10/02/2024 5:49 PM EDT) [facility] WBC 7.2 4.8 - 10.8 K/[facility] LAB HEMETOLOGY METHOD 10/02/2024 6:11 PM EDT [facility] RBC 4.70 4.50 - 5.50 M/[facility] LAB HEMETOLOGY METHOD 10/02/2024 6:11 PM EDT [facility] Hemoglobin 15.2 13.5 - 17.5 g/dL LAB HEMETOLOGY METHOD [facility]24 [facility] Hematocrit 46.0 42.0 - 54.0 % LAB HEMETOLOGY METHOD 10/02/2024 6:[facility] MCV 97.0 79.0 - 98.0 FL LAB HEMETOLOGY METHOD 10/02/2024 6:11 PM EDT [facility] MCH 32.1(H) 27.0 - 32.0 pcg LAB HEMETOLOGY METHOD 10/02/2024 6:[facility] MCHC 33.0 32.0 - 37.0 g/dL LAB HEMETOLOGY METHOD 10/02/2024 6:11 PM [facility] RDW 12.8 11.0 - 15.0 % LAB HEMETOLOGY METHOD 10/02/2024 6:11 [facility] Platelets 234 130 - 400 K/mcL LAB HEMETOLOGY METHOD 10/02/2024 6:11 [facility] MPV 10.5 7.0 - 11.0 FL LAB HEMETOLOGY METHOD 10/02/2024 6:11 PM [facility] NRBC 0.0 <1.0 % LAB HEMETOLOGY METHOD 10/02/2024 6:11 [facility] NRBC Absolute 0.00 <0.10 K/mcL LAB HEMETOLOGY METHOD 10/02/2024 6:11 [facility] Neutrophils Relative 59.2 % LAB HEMETOLOGY METHOD 10/02/2024 6:11 [facility] Lymphocytes Relative 27.6 % LAB HEMETOLOGY METHOD 10/02/2024 6:11 PM [facility] Monocytes Relative 9.0 % LAB HEMETOLOGY METHOD 10/02/2024 6:11 PM EDT [facility] Eosinophils Relative 3.3 % LAB HEMETOLOGY METHOD 10/02/2024 6:11 PM EDT [facility] Basophils Relative 0.6 % LAB HEMETOLOGY METHOD 10/02/2024 6:11 PM EDT [facility] Immature Granulocytes Relative 0.3 % LAB HEMETOLOGY METHOD 10/02/2024 6:11 PM EDT [facility] Neutrophils Absolute 4.26 1.50 - 7.00 K/mcL LAB HEMETOLOGY METHOD 10/02/2024 6:11 PM EDT [facility] Lymphocytes Absolute 1.99 1.00 - 5.00 K/mcL LAB HEMETOLOGY METHOD 10/02/2024 6:11 PM EDT [facility] Monocytes Absolute 0.65 0.20 - [...] l Result [facility] [address] [place] [address], [place] [phone] * (ABNORMAL) B-type natriuretic peptide (10/02/2024 5:49 PM EDT) [facility] BNP 114(H) <=100 pcg/mL LAB CHEMISTRY METHOD 10/02/2024 6:37 PM EDT [facility] Blood Venous blood specimen / Unknown Venipuncture / Unknown 10/02/2024 5:49 PM EDT 10/02/2024 6:01 PM EDT Michelle Galloway DO LAB BLOOD ORDERABLES Demi l Result [facility] [address] [place] [address], [place] [phone] * Magnesium (10/02/2024 5:49 PM EDT) [facility] Magnesium 2.1 1.9 - 2.6 mg/dL LAB CHEMISTRY METHOD 10/02/2024 6:31 PM EDT [facility] Blood Venous blood specimen / Unknown Venipuncture / Unknown 10/02/2024 5:49 PM EDT 10/02/2024 6:01 PM EDT Michelle Lares Galloway DO LAB BLOOD ORDERABLES Demi l Result [facility] [address] [place] [address], [place] [phone] * Lipase (10/02/2024 5:49 PM EDT) [facility] Lipase 28 13 - 75 unit/L LAB CHEMISTRY METHOD 10/02/2024 6:33 PM EDT [facility] Blood Venous blood specimen / Unknown Venipuncture / Unknown 10/02/2024 5:49 PM EDT 10/02/2024 6:01 PM EDT us Michelle Galloway DO LAB BLOOD ORDERABLES Demi l Result [facility] [address] [place] [address], [place] [phone] * (ABNORMAL) Comprehensive metabolic panel (10/02/2024 5:49 PM EDT) Sodium 141 133 - 145 mmol/L LAB CHEMISTRY METHOD 10/02/2024 6:31 PM EDT [facility] Potassium 3.8 3.5 - 5.5 mmol/L LAB CHEMISTRY METHOD 10/02/2024 6:31 PM [facility] Chloride 109 96 - 110 mmol/L LAB CHEMISTRY METHOD 10/02/2024 6:31 PM [facility] CO2 26 21 - 32 mmol/L LAB CHEMISTRY METHOD 10/02/2024 6:31 PM [facility] Anion Gap 6 3 - 11 LAB CHEMISTRY METHOD 10/02/2024 6:31 PM [facility] Glucose 124(H) 70 - 100 mg/dL LAB CHEMISTRY METHOD 10/02/2024 6:31 PM [facility] BUN 19 5 - 25 mg/dL LAB CHEMISTRY METHOD 10/02/2024 6:31 PM [facility] Creatinine 0.89 0.70 - 1.30 mg/dL LAB CHEMISTRY METHOD 10/02/2024 6:31 PM [facility] eGFR 98 >=60 mL/min/1. 73m2 LAB CHEMISTRY METHOD 10/02/2024 6:31 PM [facility] Comment:Calculation based on the??Chronic Kidney Disease Epidemiology Collaboration (CKD-EPI) equation refit??without adjustment for race. BUN/Creatinine Ratio 21.3 LAB CHEMISTRY METHOD 10/02/2024 6:31 PM [facility] Calcium 9.5 8.5 - 10.5 mg/dL LAB CHEMISTRY METHOD 10/02/2024 6:31 PM EDT [facility] AST (SGOT) 24 10 - 42 unit/L LAB CHEMISTRY METHOD 10/02/2024 6:31 PM EDT [facility] ALT (SGPT) 43 10 - 60 unit/L LAB CHEMISTRY METHOD 10/02/2024 6:31 PM EDT [facility] Alkaline Phosphatase 89 42 - 121 unit/L LAB CHEMISTRY METHOD 10/02/2024 6:31 PM EDT [facility] Total Protein 7.0 6.0 - 8.0 g/dL LAB CHEMISTRY METHOD 10/02/2024 6:31 PM EDT [facility] Albumin 3.6 3.2 - 5.0 g/dL LAB CHEMISTRY METHOD 10/02/2024 6:31 PM EDT [facility] Total Bilirubin 0.2 0.0 - 1.4 mg/dL LAB CHEMISTRY METHOD 10/02/2024 6:31 PM EDT [facility] Blood Venous blood specimen / Unknown Venipuncture / Unknown 10/02/2024 5:49 PM EDT 10/02/2024 6:01 PM EDT Michelle Galloway DO LAB BLOOD ORDERABLES Demi zoya Result [facility] [address] [place] [address], from Last 3 Months Insurance [facility] [employer] Care Teams Venetian Blind Installer Relationship Specialty Start Date End Date Marleen Jovel MD [address] [place] [phone] PCP - General Family Medicine 10/02/24
--- OUTSIDE RECORDS SUMMARY | 2024-10-07 14:32 | XMS_ITS | Clinical Summary ---
Author Organization [employer] Address [address] [facility] 7t [place] [address] Care Team Providers Care Anchor Tacker Name Role Phone Marleen Jovel MD Primary Care Provider [phone] Allergies No known active allergies Medications tiZANidine [...] referral in the system. [place] [facility] [place] Please attach media from [...] Department Care Team Description 10/05/2024 Orders Only [facility] [address] [place] [address] Provider, MD Wang 09/24/2024 Orders Only [facility] External Provider, [facility] 09/23/2024 Orders Only [facility] [address] [place] [address] Nhung Bearden MD 09/23/2024 Telephone [facility] [address] [place] [address] Marleen Jovel MD Medication Question 09/17/2024 10:00 AM EDT Office Visit [facility] [address] [place] [address] Nhung Bearden MD Essential hypertension (Primary Dx); Umbilical hernia without obstruction and without gangrene; Rhinosinusitis; Allergic conjunctivitis of both eyes 09/17/2024 Travel 08/04/2024 Refill [facility] [address] [place] [address] Marleen Jovel MD 07/31/2024 Refill [facility] [address] [place] [address] Marleen Jovel MD 07/20/2024 Orders Only [facility] External Provider, [facility] 07/18/2024 Orders Only GENERIC EXTERNAL DATA [...] Upcoming Encounters Date Type Department Care Team ([facility] st Contact Info) Description 10/15/2024 3:00 PM EDT Clinical Support [facility] [address] [place] [address] 11/26/2024 11:00 AM EDT Nurse Only [facility] [address] [place] [address] Health Maintenance Due Date Last Done Comments [...] EDT Narrative 09/25/2024 7:43 AM EDT ? [facility] ?[address] ?[place] [address] ? Ultrasound Report ? Signed ? Patient: Alli Ortiz,Howard ?MR#: [id number] ?? [id number] ? : 1965 ?Acct:[id number] ? Age/Sex: 59 / M ?ADM Date: 04/03/25 ? Loc: HO.US ? Attending Dr: Kaley MIGUEL ? Ordering Physician: Kaley Burgos ?? Date of Service: 09/24/24 ?? Procedure(s): US bladder ?? Accession Number(s): [id number] ? cc: Kaley Burgos; Marleen Jovel MD [...] DD/ 1517 ? TD/TT: 09/24/24 1523 ? Textile Designer: ? Procedure Note Farzana Walls - 09/25/[address] [address] Ultrasound Report Signed Patient: Howard JuniorMR#: [id number] : 1965Acct:[id number] Age/Sex: 59 / MADM Date: 09/24/24 Loc: HO.US Attending Dr: Kaley MIGUEL Ordering Physician: Kaley Burgos Date of Service: 09/24/24 Procedure(s): US bladder Accession Number(s): [id number] cc: Kaley Burgos-; Marleen Jovel MD EXAMINATION: [...] 09/25/24 0741 DD/ 1517 TD/TT: 09/24/24 1523 Textile Designer: [facility] External Provider IMG US PROCEDURES Final Result * Metanephrines, Fractionated, Free, LC/MS/MS, Plasma (09/23/2024 11:44 AM EDT) Metanephrine, Free 40 <=57 pg/mL [facility] Comment:This test was develo ped and its analytical performancecharacteristics have been determined by [employer] [place]. It hasnot been cleared or approved by the U.S. Food and DrugAdministration. This assay has been validated pursuantto the CLIA regulations and is used for clinicalpurposes. Normetanephrine, Free 130 <=148 pg/mL [facility] Comment:This test was develo ped and its analytical performancecharacteristics have been determined by [employer] [place]. It hasnot been cleared or approved by the U.S. Food and DrugAdministration. This assay has been validated pursuantto the CLIA regulations and is used for clinicalpurposes. Total, Free (MN+NMN) 170 <=205 pg/mL [facility] Comment: For additional information, please refer tohttp://education.[employer].iwi/faq/MetFractFree(This link is being provided for informational/educatioinformational/educational purposes [...] its analytical performancecharacteristics have been determined by [employer] [place], [place]. It hasnot been cleared or approved by the U.S. Food and DrugAdministration. This assay has been validated pursuantto the CLIA regulations and is used for clinicalpurposes.THIS TEST WAS PERFORMED AT:[employer] [place], [place] ??[phone] YORK MD,PHD 09/23/2024 11:4 4 AM EDT 09/23/2024 11:44 AM EDT us Nhung Bearden MD LAB BLOOD ORDERABLES Final Result [facility] [address] [place] [phone] * Aldosterone/Plasma Renin Activity Ratio, LC/MS/MS (09/23/2024 11:44 AM EDT) Pathologist [facility] Aldosterone 4 see note ng/dL [facility] Comment:Unable to flag abnor mal result(s), please refer to reference range(s) below:Adult Reference Ranges for Aldosterone, LC/MS/MS: Upright 8:00 - 10:00 am < or = 28 ng/dL Upright 4:00 - 6:00 pm < or = 21 ng/dL Supine 8:00 - 10:00 am 3 - 16 ng/dLTHIS TEST WAS PERFORMED AT:[employer] [address] [id number] YORK MD,PHD Plasma Renin Activity 0.80 0.25 - 5.82 ng/mL/h [facility] Aldosterone/Renin Ratio 5.0 0.9 - 28.9 Ratio [facility] Comment:This test was develo ped and its analytical performancecharacteristics have been determined by [employer] [place], [place]. It hasnot been cleared or approved by the U.S. Food and DrugAdministration. This assay has been validated pursuantto the CLIA regulations and is used for clinicalpurposes.THIS TEST WAS PERFORMED AT:[employer] [id number] [place] [address]LXDGWVXMARÍA YORK MD,PHD Blood Venous blood specimen / Unknown 09/23/2024 11:44 AM EDT 09/23/2024 11:44 AM EDT us Nhung Bearden MD LAB BLOOD ORDERABLES Final Result [facility] [address] [place] [phone] * (ABNORMAL) PSA, Free and Total (07/18/2024 12:25 PM EST) Pathologist [facility] PSA, Total 4.1(A) < OR = 4.0 ng/mL [facility] PSA % Free 17(A) >25 % (calc) [facility] Comment: PSA(ng/mL) ?Free PSA(%) ? [...] ? 9 ? (3)Bonifacio et al.:ZAYDA 277: 7445-2236 (1996) ? (4)Catalona et al.:ZAYDA 279: 7598-6935 (1997)(x)These estimates vary with age, ethnicity, family [...] presence or absence ofdisease.THIS TEST WAS PERFORMED AT:[employer] [address] ??[phone] SANCHEZ MD PSA, Free 0.7 ng/mL [facility] 07/18/2024 12:2 5 PM EST 07/18/2024 12:25 PM EST us Generic External Data Provider LAB BLOOD ORDERAB LES Final Result [facility] [address] [place] [phone] [phone] * (ABNORMAL) PSA, Total With Reflex to PSA, Free (07/18/2024 10:47 AM EST) PSA,Total (Free>4and<10) 4.06(H) 0.00 - 4.00 ng/mL [facility] Comment:PSA methodology: Abb carmela Alinity i ChemiluminescentMicroparticle Immunoassay (CMIA) 07/18/2024 10:4 7 AM EST 07/18/2024 10:47 AM EST us Generic External Data Provider LAB BLOOD ORDERAB LES Final Result Performing Organization Address [facility]/ZIP Co de Phone Number [facility] [address] [place] [phone] * Hepatitis C Antibody with Reflex to HCV, RNA, Quantitative, Real-Time PCR (10/28/2023 10:49 AM EDT) Pathologist [facility] Hepatitis C Antibody Nonreactive Nonreactive [facility] Comment:Antibodies to HCV no t detected; does not exclude early acuteHCV infection. Blood Venous blood specimen / Unknown 10/28/2023 10:49 AM EDT 10/28/2023 2:07 PM EDT us Marleen Jovel MD LAB BLOOD ORDERABLES Final Re sult Performing Organization Address [facility] Co de Phone Number [facility] [address] [place] [phone] * HIV-1/2 Antigen and Antibodies, Fourth Generation, with Reflexes (10/28/2023 10:49 AM EDT) Pathologist [facility] HIV AB/AG Nonreactive Nonreactive [facility] Comment:HIV-1 p24 Ag and/or HIV-1/HIV-2 [...] ORDERABLES Final Re sult Performing Organization Address [facility] Co de Phone Number [facility] [address] [place] [phone] * (ABNORMAL) Lipid Panel, Standard (10/28/2023 10:49 AM EDT) Triglycerides 62 <150 mg/dL [facility] Comment:Desirable Triglyceri de: less than 150 mg/dLBorderline High Triglyceride 150-199 mg/dLHigh Triglyceride: 200-499 mg/dLVery High Triglyceride: greater than or equal to 5OO mg/dL Cholesterol 174 <200 mg/dL [facility] Comment:Desirable Cholestero l: less than 200 mg/dLBorderline High Cholesterol: 200-239 mg/dLHigh Cholesterol: greater than 239 mg/dL LDL Cholesterol Calculated 107(H) <100 mg/dL [facility] Comment:Desirable LDL: less than 100 mg/dLNear Optimal/Above Optimal LDL: 110- 129 mg/dLBorderline High LDL: 130-159 mg/dLHigh LDL: 160-189 mg/dLVery High LDL: greater than or equal to 190 mg/dL HDL Cholesterol 55 >40 mg/dL [facility] Comment:Desirable HDL: great er than 40 mg/dL Note: This HDL assay may give artificially low results in patients with liver disease. Blood Venous blood specimen / Unknown 10/28/2023 10:49 AM EDT 10/28/2023 2:07 PM EDT us Marleen Jovel MD LAB BLOOD ORDERABLES Final Re sult [facility] [address] [place] [address] [phone] from Last 3 Months or Most Recently Relevant to Health Maintenance Insurance [facility] Care Teams Anchor Tacker Relationship Specialty Start Date End Date Marleen Jovel MD [address] [place] [phone] PCP - General Family Medicine 10/28/23
--- OUTSIDE RECORDS SUMMARY | 2024-10-07 14:32 | XMS_ITS | Encounter Summary ---
Author Organization [employer] Address [address] [place] [address] Care Team Providers Care Chief Communications Officer Name Role Phone Marleen Jovel MD Primary Care Provider [phone] Reason for Visit * Reason Comments Hypertension Encounter Details Date Type Department Care Team (Late st Contact Info) Description 10/02/2024 7:39 PM EDT - 10/02/2024 9:05 PM EDT Emergency [facility] Emergency [address] [place] [address] Chest pain, unspecified type (Primary [...] soon! Thank you for coming to the [facility] Emergency Department today. Our entire team works [...] sent through Care Everywhere. * Chest Pain (Niuean) documented in this encounter Discharge Disposition Disposition [...] Evaluation: 10/02/2024 : 1965 Patient's PCP: Marleen Jovel MD Emergency Physician: JERE Abraham History of Present Illness Chief Complaint: Chief Complaint Patient presents with Hypertension This is a 59-year-old Niuean-speaking male with a past medical history of [...] compliant with his blood pressure medication daily. hourly sign language interpreter used: Yes (Niuean) ROS: I have performed a ROS with [...] Procedure Abnormality Status --------- ------ CBC auto differential[[id number]] Abnormal Final result Please view results for [...] GEMUSE QTc 439 ms GEMUSE P Wave [place] 22 degrees GEMUSE R [place] -31 degrees GEMUSE T [place] 10 degrees GEMUSE ECG Interpretation Normal sinus [...] Signed Date: 10/03/2024 08:40 ET Workstation ID: [id number] Transcribed By: Self Edit Transcribed Date: 10/03/2024 [...] Signed Date: 10/03/2024 08:40 ET Workstation ID: [id number] Transcribed By: Self Edit Transcribed Date: 10/03/2024 08:39 ET us Michelle Beasleyny Nilesh DO IMG XR PROCEDURES Final R esult * Troponin I high sensitivity (10/02/2024 7:16 PM EDT) High Sensitivity Troponin I 9 <=79 ng/L LAB CHEMISTRY METHOD 10/02/2024 8:[address] [facility] Blood Venous blood specimen / Unknown Venipuncture / Unknown 10/02/2024 7:16 PM EDT 10/02/2024 7:33 PM EDT Narrative [facility] - 10/02/2024 8:01 PM EDT High levels of biotin in samples may falsely decrease hsTroponin values. ??Use caution when interpreting hsTroponin results in patients taking biotin who exhibit renal impairment (eGFR <60) or in patients taking more than 20 mg/day of biotin. Michelle Galloway DO LAB BLOOD ORDERABLES Demi l Result [facility] [address] [place] [address], [place] [phone] * (ABNORMAL) CBC auto differential (10/02/2024 5:49 PM EDT) WBC 7.2 4.8 - 10.8 K/mcL LAB HEMETOLOGY METHOD 10/02/2024 6:11 PM EDT [facility] RBC 4.70 4.50 - 5.50 M/mcL LAB HEMETOLOGY METHOD 10/02/2024 6:11 PM EDT [facility] Hemoglobin 15.2 13.5 - 17.5 g/dL LAB HEMETOLOGY METHOD 10/02/2024 6:11 PM EDT [facility] Hematocrit 46.0 42.0 - 54.0 % LAB HEMETOLOGY METHOD 10/02/2024 6:11 PM EDT [facility] MCV 97.0 79.0 - 98.0 FL LAB HEMETOLOGY METHOD 10/02/2024 6:11 PM EDT [facility] MCH 32.1(H) 27.0 - 32.0 pcg LAB HEMETOLOGY METHOD 10/02/2024 6:11 PM EDT [facility] MCHC 33.0 32.0 - 37.0 g/dL LAB HEMETOLOGY METHOD 10/02/2024 6:11 PM EDT [facility] RDW 12.8 11.0 - 15.0 % LAB HEMETOLOGY METHOD 10/02/2024 6:11 PM [facility] Platelets 234 130 - 400 K/mcL LAB HEMETOLOGY METHOD 10/02/2024 6:11 PM [facility] MPV 10.5 7.0 - 11.0 FL LAB HEMETOLOGY METHOD 10/02/2024 6:11 PM [facility] NRBC 0.0 <1.0 % LAB HEMETOLOGY METHOD 10/02/2024 6:11 PM [facility] NRBC Absolute 0.00 <0.10 K/mcL LAB HEMETOLOGY METHOD 10/02/2024 6:11 PM [facility] Neutrophils Relative 59.2 % LAB HEMETOLOGY METHOD 10/02/2024 6:11 PM [facility] Lymphocytes Relative 27.6 % LAB HEMETOLOGY METHOD 10/02/2024 6:11 PM [facility] Monocytes Relative 9.0 % LAB HEMETOLOGY METHOD 10/02/2024 6:11 PM [facility] Eosinophils Relative 3.3 % LAB HEMETOLOGY METHOD 10/02/2024 6:11 PM [facility] Basophils Relative 0.6 % LAB HEMETOLOGY METHOD 10/02/2024 6:11 PM [facility] Immature Granulocytes Relative 0.3 % LAB HEMETOLOGY METHOD 10/02/2024 6:11 PM [facility] Neutrophils Absolute 4.26 1.50 - 7.00 K/mcL LAB HEMETOLOGY METHOD 10/02/2024 6:11 PM [facility] Lymphocytes Absolute 1.99 1.00 - 5.00 K/mcL LAB HEMETOLOGY METHOD 10/02/2024 6:11 PM [facility] Monocytes Absolute 0.65 0.20 - 1.00 K/mcL LAB HEMETOLOGY METHOD 10/02/2024 6:11 PM EDT [facility] Eosinophils Absolute 0.24 0.00 - 0.50 K/[facility] LAB HEMETOLOGY METHOD 10/02/2024 6:11 PM EDT [facility] Basophils Absolute 0.04 0.00 - 0.20 K/[facility] LAB HEMETOLOGY METHOD 10/02/2024 6:11 PM EDT [facility] Immature Granulocytes Absolute 0.02 0.00 - 0.03 K/[facility] LAB HEMETOLOGY METHOD 10/02/2024 6:11 PM EDT [facility] Blood Venous blood specimen / Unknown Venipuncture / Unknown 10/02/2024 5:49 PM EDT 10/02/2024 6:00 PM EDT Michelle Tray Arnaud Galloway LAB BLOOD ORDERABLES Demi l Result Performing Organization Address City/[facility]/ZIP Co de Phone Number [facility] [address] [place] [address], [place] [phone] * (ABNORMAL) B-type natriuretic peptide (10/02/2024 5:49 PM EDT) Pathologist [facility] BNP 114(H) <=100 pcg/mL LAB CHEMISTRY METHOD 10/02/2024 6:37 PM EDT [facility] Blood Venous blood specimen / Unknown Venipuncture / Unknown 10/02/2024 5:49 PM EDT 10/02/2024 6:01 PM EDT [employer] LAB BLOOD ORDERABLES Demi l Result [facility] [address] [place] [address], [place] [phone] * Magnesium (10/02/2024 5:49 PM EDT) Magnesium 2.1 1.9 - 2.6 mg/dL LAB CHEMISTRY METHOD 10/02/2024 6:31 PM EDT [facility] Blood Venous blood specimen / Unknown Venipuncture / Unknown 10/02/2024 5:49 PM EDT 10/02/2024 6:01 PM EDT Michelle Galloway LAB BLOOD ORDERABLES Demi l Result [facility] [address] [place] [address], [place] [phone] * Lipase (10/02/2024 5:49 PM EDT) [facility] Lipase 28 13 - 75 unit/L LAB CHEMISTRY METHOD 10/02/2024 6:33 PM EDT [facility] Blood Venous blood specimen / Unknown Venipuncture / Unknown 10/02/2024 5:49 PM EDT 10/02/2024 6:01 PM EDT Michelle Galloway LAB BLOOD ORDERABLES Demi l Result Performing Organization Address [facility]/ZIP Co de Phone Number [facility] [address] [place] [address], [place] [phone] * (ABNORMAL) Comprehensive metabolic panel (10/02/2024 5:49 PM EDT) [facility] Sodium 141 133 - 145 mmol/L LAB CHEMISTRY METHOD 10/02/2024 6:31 PM EDT [facility] Potassium 3.8 3.5 - 5.5 mmol/L LAB CHEMISTRY METHOD 10/02/2024 6:31 PM EDT [facility] Chloride 109 96 - 110 mmol/L LAB CHEMISTRY METHOD 10/02/2024 6:31 PM EDT [facility] CO2 26 21 - 32 mmol/L LAB CHEMISTRY METHOD 10/02/2024 6:31 PM [facility] Anion Gap 6 3 - 11 LAB CHEMISTRY METHOD 10/02/2024 6:31 PM [facility] Glucose 124(H) 70 - 100 mg/dL LAB CHEMISTRY METHOD 10/02/2024 6:31 PM [facility] BUN 19 5 - 25 mg/dL LAB CHEMISTRY METHOD 10/02/2024 6:31 PM [facility] Creatinine 0.89 0.70 - 1.30 mg/dL LAB CHEMISTRY METHOD 10/02/2024 6:31 PM [facility] eGFR 98 >=60 mL/min/1. 73m2 LAB CHEMISTRY METHOD 10/02/2024 6:31 PM [facility] Comment:Calculation based on the??Chronic Kidney Disease Epidemiology Collaboration (CKD-EPI) equation refit??without adjustment for race. BUN/Creatinine Ratio 21.3 LAB CHEMISTRY METHOD 10/02/2024 6:31 PM [facility] Calcium 9.5 8.5 - 10.5 mg/dL LAB CHEMISTRY METHOD 10/02/2024 6:31 PM [facility] AST (SGOT) 24 10 - 42 unit/L LAB CHEMISTRY METHOD 10/02/2024 6:31 PM [facility] ALT (SGPT) 43 10 - 60 unit/L LAB CHEMISTRY METHOD 10/02/2024 6:31 PM [facility] Alkaline Phosphatase 89 42 - 121 unit/L LAB CHEMISTRY METHOD 10/02/2024 6:31 PM [facility] Total Protein 7.0 6.0 - 8.0 g/dL LAB CHEMISTRY METHOD 10/02/2024 6:31 PM [facility] Albumin 3.6 3.2 - 5.0 g/dL LAB CHEMISTRY METHOD 10/02/2024 6:31 PM [facility] Total Bilirubin 0.2 0.0 - 1.4 mg/dL LAB CHEMISTRY METHOD 10/02/2024 6:31 PM EDT [facility] Blood Venous blood specimen / Unknown Venipuncture / Unknown 10/02/2024 5:49 PM EDT 10/02/2024 6:01 PM EDT [facility] Tray Galloway LAB BLOOD ORDERABLES Demi l Result Performing Organization Address [facility] Co de Phone Number [facility] [address] [place] [address], [place] [phone] * Troponin I high sensitivity (10/02/2024 5:49 PM EDT) [facility] High Sensitivity Troponin I 10 <=79 ng/L LAB CHEMISTRY METHOD 10/02/2024 6:28 PM EDT [facility] Blood Venous blood specimen / Unknown Venipuncture / Unknown 10/02/2024 5:49 PM EDT 10/02/2024 6:00 PM EDT Narrative [facility] - 10/02/2024 6:28 PM EDT High levels of biotin in samples may falsely decrease hsTroponin values. ??Use caution when interpreting hsTroponin results in patients taking biotin who exhibit renal impairment (eGFR <60) or in patients taking more than 20 mg/day of biotin. Michelle Galloway LAB BLOOD ORDERABLES Demi l Result Performing Organization Address [facility] de Phone Number [facility] [address] [place] [address], [place] [phone] * ECG 12 lead (10/02/2024 5:37 PM EDT) [facility] Ventricular Rate ECG 79 BPM GEMUSE Atrial Rate 79 BPM GEMUSE P-R Interval 142 ms GEMUSE QRS Duration 88 ms GEMUSE Q-T Interval 382 ms GEMUSE QTc 438 ms GEMUSE P Wave [place] 22 degrees GEMUSE R [place] -25 degrees GEMUSE T [place] 13 degrees GEMUSE ECG Interpretation Normal sinus [...] 10/02/2024 documented in this encounter Care Teams Chief Communications Officer Relationship Specialty Start Date End Date Marleen Jovel MD [address] [place] [address] PCP - General Family Medicine 10/02/24 documented as of this encounter
--- OUTSIDE RECORDS SUMMARY | 2024-10-07 14:32 | XMS_ITS | Encounter Summary ---
Author Organization [employer] Address [address] [place] [address] Care Team Providers Care Film Masker Name Role Phone Marleen Jovel MD Primary Care Provider [phone] Reason for Visit * Reason Comments Med Refill Encounter Details Date Type Department Care Team ([facility] st Contact Info) Description 07/31/2024 Refill [facility] PEDS [address] [place], [place] [phone] Marleen Jovel MD [address] [place] [address] Social History Tobacco Use Types Packs/Day Years [...] Description 10/15/2024 3:00 PM EDT Clinical Support [facility] [address] [place] [address] 11/26/2024 11:00 AM EDT Nurse Only [facility] [address] [place] [address] documented as of this encounter Visit Diagnoses Not on filedocumented in this encounter Additional Health Concerns Assessment Noted Time PHQ-9 Depression Total Score: 0 10/28/19 9:20 AM EDT documented as of this encounter Care Teams Film Masker Relationship Specialty Start Date End Date Marleen Jovel MD [address] [place] [address] PCP - General Family Medicine 10/28/23 documented as of this encounter
[2024-10-07 17:33] LABS: Prostate Specific Antigen 4.09 ng/mL (<0.05-4.0)
== END 2024-10-07 12:12 | disposition home or self-care (01) ==
LOC: HO.10HDL 12:11
PROVIDERS: Visit Provider Nurse Practitioner Family
DX: Z12.5 Encounter for screening for malignant neoplasm of prostate (principal); R97.20 Elevated prostate specific antigen [PSA]
CPT/HCPCS: 36415; 84153

== ENCOUNTER 2024-10-27 09:41 | Outpatient (REF) | payer OTHER, SELFPAY ==
--- NOTE | ~2024-10-27 | XR_ITS ---
EXAMINATION: XR CHEST CLINICAL INFORMATION: SOB COMPARISON: June 22, 2024. TECHNIQUE: 2 views of the chest were obtained. FINDINGS: Poor inspiration. No consolidation, pleural effusion or pneumothorax. Cardiomediastinal silhouette size is normal. Multilevel thoracic and upper lumbar spondylosis. XR/XR chest 2V IMPRESSION: No acute airspace disease. Electronically signed by: Wilian Benson MD 10/27/2024 09:56 AM EDT
[2024-10-27 10:31] LABS: MANUAL DIFF FLAG NO
--- OUTSIDE RECORDS SUMMARY | 2024-10-27 10:43 | XMS_ITS | Encounter Summary ---
Author Organization [employer] Address [address] [place] [address] Care Team Providers Care National Sales Associate Name Role Phone Marleen Jovel MD Primary Care Provider [phone] Reason for Visit * Reason Comments Med Refill Encounter Details Date Type Department Care Team ([facility] st Contact Info) Description 07/31/2024 Refill [facility] PEDS [address] [place], [place] [phone] Marleen Jovel MD [address] [place] [address] Social History Tobacco Use Types Packs/Day Years [...] Care Team (Late st Contact Info) Description 10/29/2024 11:20 AM EDT Office Visit [facility] [address] [place] [address] 11/26/2024 11:00 AM EDT Nurse Only [facility] [address] [place] [address] documented as of this encounter Visit Diagnoses Not on filedocumented in this encounter Additional Health Concerns Assessment Noted Time PHQ-9 Depression Total Score: 0 10/28/19 9:20 AM EDT documented as of this encounter Care Teams National Sales Associate Relationship Specialty Start Date End Date Marleen Jovel MD [address] [place] [phone] PCP - General Family Medicine 10/28/23 documented as of this encounter
--- OUTSIDE RECORDS SUMMARY | 2024-10-27 10:43 | XMS_ITS | Encounter Summary ---
Author Organization [employer] Address [address] [facility] [address] [place] [address] Care Team Providers Care Fireworks Display Specialist Name Role Phone Marleen Jovel MD Primary Care Provider [phone] Reason for Visit * Reason Comments Foot Infection Encounter Details Date Type Department Care Team ([facility] st Contact Info) Description 10/27/2024 9:00 AM EDT Office Visit [facility] [address] [place] [address] [phone] Melinda Alva MD [address] [place] [address] SOB (shortness of breath) (Primary Dx); Cellulitis of lower extremity, unspecified laterality; Venous stasis dermatitis Social History Tobacco Use Types Packs/Day Years [...] AM EST documented as of this encounter Last Filed Vital Signs Vital Sign Reading Time Taken Comments Blood Pressure 128/73 10/27/2024 9:01 AM EDT Pulse 67 10/27/2024 9:01 AM EDT Temperature 37.1 ??C (98.8 ??F) 10/27/2024 9:01 AM ED T Respiratory Rate 18 10/27/2024 9:01 AM EDT Oxygen Saturation 95% 10/27/2024 9:01 AM EDT Inhaled Oxygen Concentration - - Weight 97.9 kg (215 lb 12.8 oz) 10/27/2024 9:01 AM EDT Height - - Body Mass Index 33.87 09/17/2024 9:49 AM EDT documented in this encounter Miscellaneous Notes * Assessment & Plan Note - Melinda Alva MD - 10/27/2024 9:28 AM EDT Associated Problem(s): Cellulitis of lower extremity -Rx doxycycline to cover for possible MRSA started 10/27/24 for 10 days -ER precautions discussed * Assessment & Plan Note - Melinda Alva MD - 10/27/2024 9:28 AM EDT Associated Problem(s): Venous stasis dermatitis -Trial of clobetasol ointment x 2 weeks started 10/27/24 * Assessment & Plan Note - Melinda Alva MD - 10/27/2024 9:27 AM EDT Associated Problem(s): SOB (shortness of breath) Acute SOB x 3 days with absence of URI symptoms. No wheeze on exam. O2 97% on RA. Differential includes asthma (but no wheeze), PE given LE cellulitis (no calf swelling or tenderness), congestive heart failure vs other -check EKG -check CXR -labs for possible edema ordered, check d dimer documented in this encounter Plan of Treatment Upcoming Encounters Date Type Department Care Team (Late st Contact Info) Description 10/29/2024 11:20 AM EDT Office Visit [facility] [address] [place], [place] [phone] 11/26/2024 11:00 AM EDT Nurse Only [facility] [address] [place] [address] Pending Results Name Type Priority Associated Diagnoses Date /Time ECG 12 lead ECG Routine SOB (shortness of breath) 10/27/2024 9:32 AM EDT Scheduled Orders Name Type Priority Associated Diagnoses Orde r Schedule B Type Natriuretic Peptide (BNP) Lab Routine SOB (shortness of breath) Expected: 10/27/2024 (Approximate), Expires: 10/27/2025 TSH with Reflex to Free T4 Lab Routine SOB (shortness of breath) Expected: 10/27/2024 (Approximate), Expires: 10/27/2025 Basic Metabolic Panel Lab Routine SOB (shortness of breath) Expected: 10/27/2024 (Approximate), Expires: 10/27/2025 Albumin, Random Urine W/Creatinine Lab Routine SOB (shortness of breath) Expected: 10/27/2024 (Approximate), Expires: 10/27/2025 CBC auto differential Lab Routine SOB (shortness of breath) Expected: 10/27/2024 (Approximate), Expires: 10/27/2025 Hepatic Function Panel Lab Routine SOB (shortness of breath) Expected: 10/27/2024 (Approximate), Expires: 10/27/2025 D Dimer High Sensitivity Lab Routine SOB (shortness of breath) Expected: 10/27/2024, Expires: 10/27/2025 documented as of this encounter Procedures Procedure Name Priority Date/Time Associated Diagnosis Comments XR CHEST 2 VIEWS Routine 10/27/2024 9:43 AM EDT SOB (shortness of breath) documented in this encounter Results * XR Chest 2 Views (10/27/2024 9:43 AM EDT) Anatomical Region Laterality Modality Chest Radiographic Vernell ging 10/27/2024 9:43 AM EDT Narrative 10/27/2024 9:58 AM EDT ?[facility] ?[address] ?[place] [address] ?XRay Report ? Signed ? Patient: Howard Junior ?MR#: [id number] ?? [id number] ? : 1965 ?Acct:[id number] ? Age/Sex: 59 / M ?ADM Date: 10/27/24 ? Loc: HO.HHCX ? Attending Dr: Melinda Alva MD ? Ordering Physician: Melinda Alva MD ?? Date of Service: 10/27/24 ?? Procedure(s): XR chest 2V ?? Accession Number(s): [id number] ? cc: Melinda Alva MD ? EXAMINATION: ?? XR CHEST ? CLINICAL INFORMATION: ?? SOB ? COMPARISON: ?? June 22, 2024. ? TECHNIQUE: ?? 2 views of the chest were obtained. ? FINDINGS: ?? Poor inspiration. ?? No consolidation, pleural effusion or pneumothorax. ?? Cardiomediastinal silhouette size is normal. ?? Multilevel thoracic and upper lumbar spondylosis. ? XR/XR chest 2V ?? IMPRESSION: ?? No acute airspace disease. ? Electronically signed by: ??Wilian Benson MD ??10/27/2024 09:56 AM ?? EDT RP ? Dictated By: ?Wilian Shepherd MD ? Signed By: ?<Electronically signed by Wilian Ndiaye MD in OV> ? 10/27/24 0956 ? DD/ 0943 ? TD/TT: 10/27/24 0952 ? Quenching Car Operator: ? Procedure Note Donotuseinterpreter, Image - 10/27/2024 [facility] [address] [place] [address] XRay Report Signed Patient: Howard JuniorMR#: [id number] : 1965Acct:[id number] Age/Sex: 59 / MADM Date: 10/27/24 Loc: HO.HHCX Attending Dr: Melinda Alva MD Ordering Physician: Melinda Alva MD Date of Service: 10/27/24 Procedure(s): XR chest 2V Accession Number(s): [id number] cc: Melinda Alva MD EXAMINATION: XR CHEST CLINICAL INFORMATION: SOB COMPARISON: June 22, 2024. TECHNIQUE: 2 views of the chest were obtained. FINDINGS: Poor inspiration. No consolidation, pleural effusion or pneumothorax. Cardiomediastinal silhouette size is normal. Multilevel thoracic and upper lumbar spondylosis. XR/XR chest 2V IMPRESSION: No acute airspace disease. Electronically signed by: Wilian Benson MD 10/27/2024 09:56 AM EDT RP Dictated By: Wilian Shepherd MD Signed By: <Electronically signed by Wilian Ndiaye MDin OV> 10/27/24 0956 DD/ TD/TT: 10/27/24 0952 Quenching Car Operator: Melinda Alva MD IMG XR PROCEDURES Final Re sult documented in this encounter Visit Diagnoses Diagnosis SOB (shortness of breath)- Primary Shortness of breath Cellulitis of lower extremity, unspecified laterality Venous stasis dermatitis documented in this encounter Additional Health Concerns Assessment Noted Time PHQ-9 Depression Total Score: 0 10/28/19 24 9:20 AM EDT documented as of this encounter Care Teams Fireworks Display Specialist Relationship Specialty Start Date End Date Marleen Jovel MD [address] [place] [address] PCP - General Family Medicine 10/28/23 documented as of this encounter
--- OUTSIDE RECORDS SUMMARY | 2024-10-27 10:43 | XMS_ITS | Clinical Summary ---
Author Organization [employer] Address [address] [facility] 7[address] [place] [address] Care Team Providers Care Swine Extension Field Specialist Name Role Phone Marleen Jovel MD Primary Care Provider Allergies No known active allergies Medications tiZANidine (Zanaflex) 2 MG capsule Take 1 capsule (2 mg) by mouth every 8 (eight) hours if needed for muscle spasms. 90 capsule 1 10/28/19 24 Active cetirizine (ZyrTEC) 10 MG tablet Take 1 tablet (10 mg) by mouth Once per day. 90 tablet 1 10/28/19 24 Active Additional Information Patient not taking.Reported on 09/16/2024 Blood Pressure kit 1 Units Once per day. 1 kit 10/28/19 24 Active cholecalciferol (Vitamin D-3) 50 MCG (2000 UT) capsule Take 1 capsule (50 mcg) by mouth Once per day. 120 capsule 3 11/14/19 24 Active Additional Information Patient not taking.Reported on 09/16/2024 betamethasone valerate (Valisone) 0.1 % ointment Apply topically if needed in the morning and at bedtime (dryness). 45 g 11/14/19 24 Active tamsulosin (Flomax) 0.4 MG 24 hr capsule Take 1 capsule (0.4 mg) by mouth Once per day. 30 capsule 2 02/17/20 24 Active Additional Information Patient not taking.Reported on 09/16/2024 amLODIPine (Norvasc) 5 MG tablet TAKE 1 TABLET (5 MG) BY MOUTH ONCE PER DAY. 90 tablet 1 08/05/19 25 Active fluticasone furoate (Arnuity Ellipta) 100 MCG/ACT inhalerIndications :Rhinosinusitis Inhale 1 puff Once per day. Rinse mouth with water after use to reduce aftertaste and incidence of candidiasis. Do not swallow. 1 each 09/18/19 Active albuterol 108 (90 Base) MCG/ACT inhalerIndications :Rhinosinusitis Inhale 2 puffs every 4 (four) hours if needed for wheezing or shortness of breath. 18 g 09/18/19 Active cetirizine (ZyrTEC) 10 MG tabletIndications: Rhinosinusitis,All ergic conjunctivitis of both eyes Take 1 tablet (10 mg) by mouth Once per day. 30 tablet 09/18/19 Active Ketotifen Fumarate 0.035 % solutionIndication s:Allergic conjunctivitis of both eyes Administer 1 drop into affected eye(s) 2 times daily. 10 mL 09/18/19 Active clobetasol (Temovate) 0.05 % ointmentIndication s:Venous stasis dermatitis Apply topically 2 times daily for 10 days. 45 g 10/28/19 Active doxycycline (Vibramycin) 100 MG capsuleIndications :Cellulitis of lower extremity, unspecified laterality Take 1 capsule (100 mg) by mouth 2 times daily for 10 days. Take with at least 8 ounces (large glass) of water, do not lie down for 30 minutes after 20 capsule 10/28/19 025 Active Active Problems Problem Noted Date Diagnosed Date SOB (shortness of breath) 10/27/2024 Assessment & Plan (10/27/2024 9:27 AM EDT): Acute SOB x 3 days with absence of URI symptoms. No wheeze on exam. O2 97% on RA. Differential includes asthma (but no wheeze), PE given LE cellulitis (no calf swelling or tenderness), congestive heart failure vs other -check EKG -check CXR -labs for possible edema ordered, check d dimer Cellulitis of lower extremity 10/27/2024 Assessment & Plan (10/27/2024 9:28 AM EDT): -Rx doxycycline to cover for possible MRSA started 10/27/24 for 10 days -ER precautions discussed Venous stasis dermatitis 10/27/2024 Assessment & Plan (10/27/2024 9:28 AM EDT): -Trial of clobetasol ointment x 2 weeks started 10/27/24 Acute non intractable tension-type headache 01/2024 Abnormal EKG 05/01/2024 Assessment & Plan (05/01/2024 3:18 PM EST): Patient had gone to surgeon and for preop evaluation for hernia surgery, was found to have abnormalities in V1-V3, no prior ECG in system to compare, they wanted patient to be seen by cardiology, but I don't see a referral in the system. [place] [facility] Please attach media from ECG done in [...] Encounters Date Type Department Care Team Description 10/27/2024 9:00 AM EDT Office Visit [facility] [address] [address] Melinda Alva MD SOB (shortness of breath) (Primary Dx); Cellulitis of lower extremity, unspecified laterality; Venous stasis dermatitis 10/15/2024 3:00 PM EDT Clinical Support [facility] [address] [place] [address] Tatiana Lock, RN Essential hypertension [I10] 10/15/2024 Travel 10/05/2024 Orders Only [facility] [address] [place] [address] ProviderWang MD 09/24/2024 Orders Only [facility] External Provider, [facility] 09/23/2024 Orders Only [facility] [address] [place] [address] Nhung Bearden MD 09/23/2024 Telephone [facility] [address] [place] [address] Marleen Jovel MD Medication Question 09/17/2024 10:00 AM EDT Office Visit [facility] [address] [place] [address] Nhung Bearden MD Essential hypertension (Primary Dx); Umbilical hernia without obstruction and without gangrene; Rhinosinusitis; Allergic conjunctivitis of both eyes 09/17/2024 Travel 08/04/2024 Refill [facility] [address] [place] [address] Marleen Jovel MD 07/31/2024 Refill [facility] [address] [place] [address] Marleen Jovel MD from Last 3 Months Immunizations Name Administration Dates Next Due Hep B, adult 12/18/2023,11/20/2023 Influenza Injectable Quadriv alant Preservative Free IIV4 MDCK 04/01/2018 Influenza, IIV3, injectable 05/01/2024, 2,04/05/2015 Zoster, Recombinant 09/17/2024 Family History Medical History [...] 12.8 oz) 10/27/2024 9:01 AM EDT Height 170 cm (5' 6.93 ) 09/17/2024 9:49 AM EDT Body Mass Index 33.87 09/17/2024 9:49 AM EDT Plan of Treatment Upcoming Encounters Date Type Department Care Team (Late st Contact Info) Description 10/29/2024 11:20 AM EDT Office Visit [facility] [address] [place], [place] [phone] 11/26/2024 11:00 AM EDT Nurse Only [facility] [address] [place], [place] [phone] Health Maintenance Due Date Last Done Comments CT Colonography 1965 Colonoscopy 1965 Colorectal Cancer Screening 1965 FIT DNA/Cologuard 1965 FIT 1965 FOBT 1965 Sigmoidoscopy 1965 Alcohol/Substance Use Screening 1976 DTaP/Tdap/Td Vaccines (1 - Tdap) 1983 Pneumococcal Vaccine: 50+ Years (1 of 2 - PCV) 1983 COVID-19 Vaccine (3 - 2023- season) 2024 01/07/2021, 12/17/2020 RSV Patients and Patients Aged 60 years or older (1 - Risk 60-74 years 1-dose series) 2024 Hepatitis B Vaccines (3 of 3 - 19+ 3-dose series) 05/22/2024 12/18/2023, 11/20/2023 Depression Screening 10/27/2024 10/28/2023, 10/28/19 24 SDOH Screening 10/27/2024 10/28/2023 Zoster Vaccines (2 [...] 9:43 AM EDT SOB (shortness of breath) ECG 12-LEAD Routine 10/02/2024 9:58 AM EDT ECG 12-LEAD Routine 10/02/2024 9:09 AM EDT US BLADDER Routine 09/24/2024 3:17 PM EDT METANEPHRINES, FRACT, FREE, LC/MS/MS, PLASMA Routine 09/23/2024 11:44 AM EDT ALDOSTERONE/PLASMA RENIN ACTIVITY RATIO, LC/MS/MS Routine 09/23/2024 11:44 AM EDT Essential hypertension HEPATITIS C AB W/REFL TO HCV RNA, [...] Recently Relevant to Health Maintenance Results * XR Chest 2 Views (10/27/2024 9:43 AM EDT) Anatomical Region Laterality Modality Chest Radiographic Vernell ging 10/27/2024 9:43 AM EDT Narrative 10/27/2024 9:58 AM EDT ?[facility] ?[address] ?[place] [address] ?XRay Report ? Signed ? Patient: Alli Ortiz,Howard ?MR#: [id number] ?? [id number] ? : 1965 ?Acct:[id number] ? Age/Sex: 59 / M ?ADM Date: 10/27/24 ? Loc: HO.HHCX ? Attending Dr: Melinda Alva MD ? Ordering Physician: Melinda Alva MD ?? Date of Service: 10/27/24 ?? Procedure(s): XR chest 2V ?? Accession Number(s): [id number] ? cc: Melinda Alva MD ? EXAMINATION: [...] DD/ 0943 ? TD/TT: 10/27/24 0952 ? Medical Practice Manager: ? Procedure Note Farzana Walls - 10/27/[address] [address] XRay Report Signed Patient: Howard JuniorMR#: [id number] : 1965Acct:[id number] Age/Sex: 59 / MADM Date: 10/27/24 Loc: HO.HHCX Attending Dr: Melinda Alva MD Ordering Physician: Melinda Alva MD Date of Service: 10/27/24 Procedure(s): XR chest 2V Accession Number(s): [id number] cc: Melinda Alva MD EXAMINATION: XR CHEST [...] <Electronically signed by Wilian Ndiaye MDin OV> 10/27/2456 DD/ 2 TD/TT: 10/27/24951 Medical Practice Manager: Melinda Alva MD IMG XR PROCEDURES Final Re sult * ECG 12 lead (10/02/2024 9:58 AM EDT) Only the most recent of2 resultswithin the time period is included. Historical Provider ECG ORDERABLES Final Res ult * US BLADDER (09/24/2024 3:17 PM EDT) Anatomical Region Laterality Modality Abdomen Ultrasound 09/24/2024 3:17 PM EDT Narrative 09/25/2024 7:43 AM EDT ? [facility] ?[address] ?[place] [address] ? Ultrasound Report ? Signed ? Patient: Alli Ortiz,Howard ?MR#: [id number] ?? [id number] ? : 1965 ?Acct:[id number] ? Age/Sex: 59 / M ?ADM Date: 04/03/25 ? Loc: HO.US ? Attending Dr: Kaley MIGUEL ? Ordering Physician: Kaley Burgos ?? Date of Service: 09/24/24 ?? Procedure(s): US bladder ?? Accession Number(s): [id number] ? cc: Kaley Burgos; Marleen Jovel MD [...] DD/ 1517 ? TD/TT: 09/24/24 1523 ? Medical Practice Manager: ? Procedure Note Kavita, Image - 09/25/2024 [place] [address] Ultrasound Report Signed Patient: Howard Junior#: [id number] : 1965Acct:[id number] Age/Sex: 59 / MADM Date: 09/24/24 Loc: HO.US Attending Dr: Kaley MIGUEL Ordering Physician: Kaley Burgos Date of Service: 09/24/24 Procedure(s): bladder Accession Number(s): [id number] cc: Kaley Burgos; Marleen Jovel MD EXAMINATION: [...] 09/25/24 0741 DD/ 1517 TD/TT: 09/24/24 1523 Medical Practice Manager: us [facility] External Provider IMG US PROCEDURES Final Result * Metanephrines, Fractionated, Free, LC/MS/MS, Plasma (09/23/2024 11:44 AM EDT) Metanephrine, Free 40 <=57 pg/mL [facility] Comment:This test was develo ped and its analytical performancecharacteristics have been determined by [employer] [place], [place]. It hasnot been cleared or approved by the U.S. Food and DrugAdministration. This assay has been validated pursuantto the CLIA regulations and is used for clinicalpurposes. Normetanephrine, Free 130 <=148 pg/mL [facility] Comment:This test was develo ped and its analytical performancecharacteristics have been determined by [employer] [place], [place]. It hasnot been cleared or approved by the U.S. Food and DrugAdministration. This assay has been validated pursuantto the CLIA regulations and is used for clinicalpurposes. Total, Free (MN+NMN) 170 <=205 pg/mL [facility] Comment: For additional information, please refer tohttp://education.Near Page.[employer]/faq/[employer](This link is being provided for informational/educatioinformational/educational purposes [...] its analytical performancecharacteristics have been determined by [employer] [place], [place]. It hasnot been cleared or approved by the U.S. Food and DrugAdministration. This assay has been validated pursuantto the CLIA regulations and is used for clinicalpurposes.THIS TEST WAS PERFORMED AT:[employer] [place], [place] ??[id number] W. MASON,MD,PHD 09/23/2024 11:4 4 AM EDT 09/23/2024 11:44 AM EDT us Nhung Bearden MD LAB BLOOD ORDERABLES Final Result [facility] [address] [place] [address] [phone] * Aldosterone/Plasma Renin Activity Ratio, LC/MS/MS (09/23/2024 11:44 AM EDT) Aldosterone 4 see note ng/dL [facility] Comment:Unable to flag abnor mal result(s), please refer to reference range(s) below:Adult Reference Ranges for Aldosterone, LC/MS/MS: Upright 8:00 - 10:00 am < or = 28 ng/dL Upright 4:00 - 6:00 pm < or = 21 ng/dL Supine 8:00 - 10:00 am 3 - 16 ng/dLTHIS TEST WAS PERFORMED AT:[employer] [id number] [place] [address]RKZHZOUMARÍA YORK MD,PHD Plasma Renin Activity 0.80 0.25 - 5.82 ng/mL/h [facility] Aldosterone/Renin Ratio 5.0 0.9 - 28.9 Ratio [facility] Comment:This test was develo ped and its analytical performancecharacteristics have been determined by [employer] [place], [place]. It hasnot been cleared or approved by the U.S. Food and DrugAdministration. This assay has been validated pursuantto the CLIA regulations and is used for clinicalpurposes.THIS TEST WAS PERFORMED AT:[employer] [id number] [place] [address]WPWKOQAMARÍA YORK MD,PHD Blood Venous blood specimen / Unknown 09/23/2024 11:44 AM EDT 09/23/2024 11:44 AM EDT Nhung Bearden MD LAB BLOOD ORDERABLES Final Result [facility] [address] [place] [phone] * Hepatitis C Antibody with Reflex to HCV, RNA, Quantitative, Real-Time PCR (10/28/2023 10:49 AM EDT) Hepatitis C Antibody Nonreactive Nonreactive [facility] Comment:Antibodies to HCV no t detected; does not exclude early acuteHCV infection. Blood Venous blood specimen / Unknown 10/28/2023 10:49 AM EDT 10/28/2023 2:07 PM EDT us Marleen Jovel MD LAB BLOOD ORDERABLES Final Re sult Performing Organization Address [facility]/ZIP Co de Phone Number [facility] [address] [place] [phone] * HIV-1/2 Antigen and Antibodies, Fourth Generation, with Reflexes (10/28/2023 10:49 AM EDT) HIV AB/AG Nonreactive Nonreactive [facility] Comment:HIV-1 p24 Ag and/or HIV-1/HIV-2 Ab not detected.A test result that is nonreactive does not exclude thepossibility of exposure to or infection with HIV-1 and/orHIV-2. Nonreactive results in this assay for individualswith prior exposure to HIV-1 and/or HIV-2 may be due toantigen and antibody levels that are below the limit ofdetection of this assay.The CAXA HIV Ag/Ab Combo assay result andsupplemental assay results should be interpreted inconjunction with the patient's clinical presentation,history and other laboratory results. If the results areinconsistent with clinical evidence, additional testing issuggested to confirm the result. Blood Venous blood specimen / Unknown 10/28/2023 10:49 AM EDT 10/28/2023 2:07 PM EDT us Marleen Jovel MD LAB BLOOD ORDERABLES Final Re sult Performing Organization Address [facility]/ZIP Co de Phone Number [facility] [address] [place] [address] [phone] * (ABNORMAL) Lipid Panel, Standard (10/28/2023 10:49 AM EDT) Triglycerides 62 <150 mg/dL [facility] Comment:Desirable Triglyceri de: less than 150 mg/dLBorderline High Triglyceride 150-199 mg/dLHigh Triglyceride: 200-499 mg/dLVery High Triglyceride: greater than or equal to 5OO mg/dL Cholesterol 174 <200 mg/dL [facility] Comment:Desirable Cholestero l: less than 200 mg/dLBorderline High Cholesterol: 200-239 mg/dLHigh Cholesterol: greater than 239 mg/dL LDL Cholesterol Calculated 107(H) <100 mg/dL [facility] Comment:Desirable LDL: less than 100 mg/dLNear Optimal/Above Optimal LDL: 110- 129 mg/dLBorderline High LDL: 130-159 mg/dLHigh LDL: 160-189 mg/dLVery High LDL: greater than or equal to 190 mg/dL HDL Cholesterol 55 >40 mg/dL [facility] Comment:Desirable HDL: great er than 40 mg/dL Note: This HDL assay may give artificially low results in patients with liver disease. Blood Venous blood specimen / Unknown 10/28/2023 10:49 AM EDT 10/28/2023 2:07 PM EDT us Marleen Jovel MD LAB BLOOD ORDERABLES Final Re sult [facility] [address] [place] [address] [phone] from Last 3 Months or Most Recently Relevant to Health Maintenance Insurance [employer] Care Teams Swine Extension Field Specialist Relationship Specialty Start Date End Date Marleen Jovel MD [address] [place] [phone] PCP - General Family Medicine 10/28/23
--- OUTSIDE RECORDS SUMMARY | 2024-10-27 10:43 | XMS_ITS | Clinical Summary ---
Author Organization [facility] Address [address] [place] [address] Phone Care Team Providers Care Beer Brewer Name Role Phone Marleen Jovel MD Primary Care Provider [phone] Allergies No known active allergies Medications No known medications Active Problems No known active problems Encounters Date Type Department Care Team Description 10/02/2024 7:39 PM EDT - 10/02/2024 9:05 PM EDT Emergency [facility] Emergency [address] [place] [address] Chest pain, unspecified type (Primary [...] GEMUSE QTc 439 ms GEMUSE P Wave Pope 22 degrees GEMUSE R Pope -31 degrees GEMUSE T Pope 10 degrees GEMUSE ECG Interpretation Normal sinus [...] Signed Date: 10/03/2024 08:40 ET Workstation ID: [id number] Transcribed By: Self Edit Transcribed Date: 10/03/2024 [...] Signed Date: 10/03/2024 08:40 ET Workstation ID: [id number] Transcribed By: Self Edit Transcribed Date: 10/03/2024 08:39 ET Michelle Galloway DO IMG XR PROCEDURES Final R esult * Troponin I high sensitivity (10/02/2024 7:16 PM EDT) Only the most recent of2 resultswithin the time period is included. [facility] High Sensitivity Troponin I 9 <=79 ng/L LAB CHEMISTRY METHOD 10/02/2024 8:01 PM EDT [facility] Blood Venous blood specimen / Unknown Venipuncture / Unknown 10/02/2024 7:16 PM EDT 10/02/2024 7:33 PM EDT Narrative [facility] - 10/02/2024 8:01 PM EDT High levels of biotin in samples may falsely decrease hsTroponin values. ??Use caution when interpreting hsTroponin results in patients taking biotin who exhibit renal impairment (eGFR <60) or in patients taking more than 20 mg/day of biotin. Michelle Galloway DO LAB BLOOD ORDERABLES Demi l Result [facility] [address] [place] [address], [place] [phone] * (ABNORMAL) CBC auto differential (10/02/2024 5:49 PM EDT) [facility] WBC 7.2 4.8 - 10.8 K/[facility] LAB HEMETOLOGY METHOD 10/02/2024 6:11 PM EDT [facility] RBC 4.70 4.50 - 5.50 M/[facility] LAB HEMETOLOGY METHOD 10/02/2024 6:11 PM EDT [facility] Hemoglobin 15.2 13.5 - 17.5 g/dL LAB HEMETOLOGY METHOD [facility] Hematocrit 46.0 42.0 - 54.0 % LAB HEMETOLOGY METHOD [facility] MCV 97.0 79.0 - 98.0 FL LAB HEMETOLOGY METHOD 10/02/2024 6:11 PM EDT [facility] MCH 32.1(H) 27.0 - 32.0 pcg LAB HEMETOLOGY METHOD [facility]24 [facility] MCHC 33.0 32.0 - 37.0 g/dL LAB HEMETOLOGY METHOD 10/02/2024 6:11 PM [facility] RDW 12.8 11.0 - 15.0 % LAB HEMETOLOGY METHOD 10/02/2024 6[facility] Platelets 234 130 - 400 K/mcL LAB HEMETOLOGY METHOD [facility]/02[facility]2024 6[facility] MPV 10.5 7.0 - 11.0 FL LAB HEMETOLOGY METHOD 10/02/2024 6:11 PM [facility] NRBC 0.0 <1.0 % LAB HEMETOLOGY METHOD [facility]/02[facility]2024 6[facility] NRBC Absolute 0.00 <0.10 K/mcL LAB HEMETOLOGY METHOD 10/02[facility]2024 6[facility] Neutrophils Relative 59.2 % LAB HEMETOLOGY METHOD [facility]/02[facility]2024 [facility] Lymphocytes Relative 27.6 % LAB HEMETOLOGY METHOD 10/02/2024 6:11 PM [facility] Monocytes Relative 9.0 % LAB HEMETOLOGY METHOD 10/02/2024 6:11 PM EDT [facility] Eosinophils Relative 3.3 % LAB HEMETOLOGY METHOD 10/02/2024 6:11 PM EDT [facility] Basophils Relative 0.6 % LAB HEMETOLOGY METHOD 10/02/2024 6:11 PM EDT [facility] Immature Granulocytes Relative 0.3 % LAB HEMETOLOGY METHOD 10/02/2024 6:11 PM EDT [facility] Neutrophils Absolute 4.26 1.50 - 7.00 K/mcL LAB HEMETOLOGY METHOD 10/02/2024 6:11 PM EDT [facility] Lymphocytes Absolute 1.99 1.00 - 5.00 K/mcL LAB HEMETOLOGY METHOD 10/02/2024 6:11 PM EDT [facility] Monocytes Absolute 0.65 0.20 - 1.00 K/mcL LAB HEMETOLOGY METHOD 10/02/2024 6:11 PM EDT [facility] Eosinophils Absolute 0.24 0.00 - 0.50 K/mcL LAB HEMETOLOGY METHOD 10/02/2024 6:11 PM EDT [facility] Basophils Absolute 0.04 0.00 - 0.20 K/mcL LAB HEMETOLOGY METHOD 10/02/2024 6:11 PM EDT [facility] Immature Granulocytes Absolute 0.02 0.00 - 0.03 K/mcL LAB HEMETOLOGY METHOD 10/02/2024 6:11 PM EDT [facility] Blood Venous blood specimen / Unknown Venipuncture / Unknown 10/02/2024 5:49 PM EDT 10/02/2024 6:00 PM EDT us Michelle Galloway DO LAB BLOOD ORDERABLES Demi l Result [facility] [address] [place] [address], [place] [phone] * (ABNORMAL) B-type natriuretic peptide (10/02/2024 5:49 PM EDT) [facility] BNP 114(H) <=100 pcg/mL LAB CHEMISTRY METHOD 10/02/2024 6:37 PM EDT [facility] Blood Venous blood specimen / Unknown Venipuncture / Unknown 10/02/2024 5:49 PM EDT 10/02/2024 6:01 PM EDT Michelle Galloway DO LAB BLOOD ORDERABLES Demi l Result [facility] [address] [place] [address], [place] [phone] * Magnesium (10/02/2024 5:49 PM EDT) [facility] Magnesium 2.1 1.9 - 2.6 mg/dL LAB CHEMISTRY METHOD 10/02/2024 6:31 PM EDT [facility] Blood Venous blood specimen / Unknown Venipuncture / Unknown 10/02/2024 5:49 PM EDT 10/02/2024 6:01 PM EDT Michelle Lares Galloway DO LAB BLOOD ORDERABLES Demi l Result [facility] [address] [place] [address], [place] [phone] * Lipase (10/02/2024 5:49 PM EDT) [facility] Lipase 28 13 - 75 unit/L LAB CHEMISTRY METHOD 10/02/2024 6:33 PM EDT [facility] Blood Venous blood specimen / Unknown Venipuncture / Unknown 10/02/2024 5:49 PM EDT 10/02/2024 6:01 PM EDT us Michelle Galloway DO LAB BLOOD ORDERABLES Demi l Result [facility] [address] [place] [address], [place] [phone] * (ABNORMAL) Comprehensive metabolic panel (10/02/2024 5:49 PM EDT) Sodium 141 133 - 145 mmol/L LAB CHEMISTRY METHOD 10/02/2024 6:31 PM EDT [facility] Potassium 3.8 3.5 - 5.5 mmol/L LAB CHEMISTRY METHOD 10/02/2024 6:31 PM [facility] Chloride 109 96 - 110 mmol/L LAB CHEMISTRY METHOD 10/02/2024 6:31 PM [facility] CO2 26 21 - 32 mmol/L LAB CHEMISTRY METHOD 10/02/2024 6:31 PM [facility] Anion Gap 6 3 - 11 LAB CHEMISTRY METHOD 10/02/2024 6:31 PM [facility] Glucose 124(H) 70 - 100 mg/dL LAB CHEMISTRY METHOD 10/02/2024 6:31 PM [facility] BUN 19 5 - 25 mg/dL LAB CHEMISTRY METHOD 10/02/2024 6:31 PM [facility] Creatinine 0.89 0.70 - 1.30 mg/dL LAB CHEMISTRY METHOD 10/02/2024 6:31 PM [facility] eGFR 98 >=60 mL/min/1. 73m2 LAB CHEMISTRY METHOD 10/02/2024 6:31 PM [facility] Comment:Calculation based on the??Chronic Kidney Disease Epidemiology Collaboration (CKD-EPI) equation refit??without adjustment for race. BUN/Creatinine Ratio 21.3 LAB CHEMISTRY METHOD 10/02/2024 6:31 PM [facility] Calcium 9.5 8.5 - 10.5 mg/dL LAB CHEMISTRY METHOD 10/02/2024 6:31 PM EDT [facility] AST (SGOT) 24 10 - 42 unit/L LAB CHEMISTRY METHOD 10/02/2024 6:31 PM EDT [facility] ALT (SGPT) 43 10 - 60 unit/L LAB CHEMISTRY METHOD 10/02/2024 6:31 PM EDT [facility] Alkaline Phosphatase 89 42 - 121 unit/L LAB CHEMISTRY METHOD 10/02/2024 6:31 PM EDT [facility] Total Protein 7.0 6.0 - 8.0 g/dL LAB CHEMISTRY METHOD 10/02/2024 6:31 PM EDT [facility] Albumin 3.6 3.2 - 5.0 g/dL LAB CHEMISTRY METHOD 10/02/2024 6:31 PM EDT [facility] Total Bilirubin 0.2 0.0 - 1.4 mg/dL LAB CHEMISTRY METHOD 10/02/2024 6:31 PM EDT [facility] Blood Venous blood specimen / Unknown Venipuncture / Unknown 10/02/2024 5:49 PM EDT 10/02/2024 6:01 PM EDT Michelle Galloway DO LAB BLOOD ORDERABLES Demi zoya Result [facility] [address] [place] [address], from Last 3 Months Insurance [facility] [employer] Care Teams Beer Brewer Relationship Specialty Start Date End Date Marleen Jovel MD [address] [place] [id number] PCP - General Family Medicine 10/02/24
--- OUTSIDE RECORDS SUMMARY | 2024-10-27 10:43 | XMS_ITS | Encounter Summary ---
Author Organization [employer] Address [address] [place] [address] Care Team Providers Care Marine Engine Mechanic Name Role Phone Marleen Jovel MD Primary Care Provider [phone] Encounter Details Date Type Department Care Team (Late st Contact Info) Description 10/05/2024 Orders Only [facility] [address] [place] [address] Provider, MD Wang Social History Tobacco Use [...] Description 10/29/2024 11:20 AM EDT Office Visit [facility] [address] [place] [address] 11/26/2024 11:00 AM EDT Nurse Only [facility] [address] [place] [address] documented as of this encounter Procedures Procedure [...] documented as of this encounter Care Teams Marine Engine Mechanic Relationship Specialty Start Date End Date Marleen Jovel MD [address] [place] [address] PCP - General Family Medicine 10/28/23 documented as of this encounter
[2024-10-27 11:33] LABS: Basophils Percent Auto 0.5 % (0-2); Eosinophils Absolute Auto 0.2 X10*3/uL (0.0-0.4); Eosinophils Percent Auto 2.7 % (0-4); Hemoglobin 15.1 g/dl (14.0-18.0); Imm Gran Abs Auto 0.02 X10*3/uL (0.00-0.03); Imm Gran Pct Auto 0.3 % (0.0-0.4); Lymphocytes Absolute Auto 1.4 X10*3/uL (1.2-4.9); Lymphocytes Percent Auto 21.5 % (20-40); Mean Corpuscular HGB Conc 34.3 g/dl (31.0-36.0); Mean Corpuscular Hemoglobin 32.8 pg (27.0-33.0); Mean Corpuscular Volume 95.4 fL (80.0-98.0); Mean Platelet Volume 10.6 fL (9.4-12.4); Monocytes Absolute Auto 0.6 X10*3/uL (0.1-1.2); Monocytes Percent Auto 9.4 % (2-11); Neutrophils Absolute Auto 4.3 x10*3/uL (2.0-8.3); Neutrophils Percent Auto 65.6 % (45-73); Platelet Count 201 X10*3/uL (160-400); Red Blood Count 4.61 X10*6/uL (4.60-5.80); Red Cell Distribution Width 13.1 % (11.0-16.0); White Blood Count 6.6 X10*3/uL (4.8-10.8)
[2024-10-27 11:42] LABS: D Dimer High Sensitivity < 150 NG/ML
[2024-10-27 12:02] LABS: B Type Natriuretic Peptide 98 pg/mL (<100)
[2024-10-27 12:14] LABS: Creatinine Urine 182.36 mg/dL; Microalbum/Creatinine Ratio Ur 4.9 ug/mg cr (<30)
[2024-10-27 14:36] LABS: Alanine Aminotransferase 28 U/L (0-40); Albumin Level 4.2 g/dL (3.5-5.0); Anion Gap 13 (12-20); Aspartate Amino Transferase 28 U/L (5-37); Bilirubin Direct 0.1 mg/dL (0.0-0.5); Bilirubin Total 0.3 mg/dL (0.0-1.0); Blood Urea Nitrogen 20 mg/dL (9-16); Calcium 9.2 mg/dL (8.4-10.2); Carbon Dioxide 25 mmol/L (22-29); Chloride 108 mmol/L (96-108); Estimated Glomerular Filt Rate > 60; Glucose Random 103 mg/dL (60-115); Potassium 3.8 mmol/L (3.3-5.1); Sodium 142 mmol/L (135-145); Total Protein 7.2 g/dL (6.5-8.0)
[2024-10-27 14:46] LABS: TSH reflex Free T4 0.51 uIU/mL (0.32-4.0)
[2024-10-27 18:19] LABS: Alkaline Phosphatase 79 U/L (39-117)
== END 2024-10-27 09:42 | disposition home or self-care (01) ==
LOC: HO.HHCX 09:41
PROVIDERS: PCP Family Medicine; Visit Provider Family Medicine
DX: R06.02 Shortness of breath (principal)
CPT/HCPCS: 36415; 71046; 80048; 80076; 82043; 82570; 83880; 84443; 85025; 85379

== ENCOUNTER → 2024-10-27 09:43 | Outpatient (BNV) | payer OTHER, SELFPAY | PROVIDERS: Visit Provider Radiology Diagnostic Radiology | DX: R06.02 Shortness of breath (principal) | CPT/HCPCS: 71046 ==

== ENCOUNTER 2024-12-28 09:10 | Outpatient (REF) | payer OTHER, SELFPAY ==
--- NOTE | ~2024-12-28 | FL_ITS ---
EXAMINATION: XR BARIUM SWALLOW CLINICAL INFORMATION: Dysphagia COMPARISON: None available. TECHNIQUE: Routine upright barium swallow was performed with thick barium and barium coated saltine crackers. Thin barium was administered in prone lying position. FINDINGS: On oral administration of thick barium in upright view there is laryngeal penetration without aspiration. Otherwise is normal propagation bolus from the oral cavity through the pharynx, esophagus into stomach without any evidence of obstruction, narrowing or stricture. On oral administration of barium coated saltine crackers there is normal oral mastication is normal propagation of bolus from the oral cavity through the pharynx, esophagus into stomach. On oral administration of thin barium in prone lying position there is normal passage of bolus from the oral cavity, pharynx, esophagus into stomach. No intrinsic obstruction or extrinsic compression seen. No evidence of hiatal hernia or gastroesophageal reflux in supine or decubitus lying positions. There is mild retention of barium in the valleculae which cleared with subsequent swallowing. Patient had coughing throughout the exam and from very first swallow after observing laryngeal penetration. No aspiration was seen. FLUOROSCOPY TIME: 2 minutes and 43 seconds. DOSE AREA PRODUCT: [id number] uGy-m2 (microgray-meter squared) FL/FL barium swallow IMPRESSION: Laryngeal penetration on initial swallow but not seen subsequently. No laryngeal penetration. Patient had coughing throughout the exam. The barium swallow is otherwise unremarkable. Electronically signed by: Moisés Villatoro MD 12/28/2024 10:18 AM EDT
--- OUTSIDE RECORDS SUMMARY | 2024-12-28 09:36 | XMS_ITS | Encounter Summary ---
Author Organization [employer] Address [address] [place] [address] Care Team Providers Care Veterinary Meat Inspector Name Role Phone Marleen Jovel MD Primary Care Provider [phone] Encounter Details Date Type Department Care Team (Late st Contact Info) Description 10/05/2024 Orders Only [facility] [address] [place] [address] Provider, MD Wang Social History Tobacco Use [...] (10/02/2024 9:58 AM EDT) us Historical Provider ECG ORDERABLES Final Res ult * ECG 12 lead (10/02/2024 9:09 AM EDT) us Historical Provider MD ECG ORDERABLES Final Res ult documented in this encounter Visit Diagnoses Not on filedocumented in this encounter Additional Health Concerns Assessment Noted Time PHQ-9 Depression Total Score: 0 10/28/19 9:20 AM EDT documented as of this encounter Care Teams Veterinary Meat Inspector Relationship Specialty Start Date End Date Marleen Jovel MD [address] [place] [address] PCP - General Family Medicine 10/28/23 documented as of this encounter
--- OUTSIDE RECORDS SUMMARY | 2024-12-28 09:36 | XMS_ITS | Clinical Summary ---
Author Organization [facility] Address [address] [place] [address] Phone Care Team Providers Care Die Cutter Operator Name Role Phone Marleen Jovel MD Primary Care Provider [phone] Allergies No known active allergies Medications No known medications Active Problems No known active problems Encounters Date Type Department Care Team Description 10/02/2024 7:39 PM EDT - 10/02/2024 9:05 PM EDT Emergency [facility] Emergency [address] [place] [address] Chest pain, unspecified type (Primary [...] 74 10/02/2024 7:45 PM EDT Temperature 36.6 C (97.9 F) 10/02/2024 7:45 PM EDT Respiratory Rate 18 10/02/2024 7:45 PM EDT [...] Zoster Vaccines (2 of 2) 11/12/2024 09/17/2024 Influenza Vaccine (#1) 2025 , 06/01/2022, 04/01/2018, Additional history exists Hypertension/CHF/CAD Annual BMP Blood Test 10/02/2025 10/02/2024 Cholesterol Screening (Lipid Panel) 10/27/2028 10/28/2023 HIV Screening Completed 10/28/2023 Hepatitis C Screening Completed 10/28/2023 HIB Vaccines Aged Out No longer eligi [...] GEMUSE QTc 439 ms GEMUSE P Wave Success 22 degrees GEMUSE R Success -31 degrees GEMUSE T Success 10 degrees GEMUSE ECG Interpretation Normal sinus [...] Signed Date: 10/03/2024 08:40 ET Workstation ID: [id number] Transcribed By: Self Edit Transcribed Date: 10/03/2024 08:39 ET Narrative 10/03/2024 8:40 AM EDT PROCEDURE: PA and lateral radiographs of the chest. HISTORY: chest pain. COMPARISON: 09/20/2023. FINDINGS: The heart is mildly enlarged. Lungs and pleural spaces are clear. No pulmonary edema. Degenerative changes of the spine. Procedure Note Mayur [...] Signed Date: 10/03/2024 08:40 ET Workstation ID: [id number] Transcribed By: Self Edit Transcribed Date: 10/03/2024 08:39 ET Michelle Galloway DO IMG XR PROCEDURES Final R esult * Troponin I high sensitivity (10/02/2024 7:16 PM EDT) Only the most recent of2 resultswithin the time period is included. [facility] High Sensitivity Troponin I 9 <=79 ng/L LAB CHEMISTRY METHOD 10/02/2024 8:01 PM EDT [facility] Blood Venous blood specimen / Unknown Venipuncture / Unknown 10/02/2024 7:16 PM EDT 10/02/2024 7:33 PM EDT Narrative [facility] - 10/02/2024 8:01 PM EDT High levels of biotin in samples may falsely decrease hsTroponin values. Use caution when interpreting hsTroponin results in patients taking biotin who exhibit renal impairment (eGFR <60) or in patients taking more than 20 mg/day of biotin. us Michelle Galloway DO LAB BLOOD ORDERABLES Demi l Result [facility] [address] [place] [address], [place] [phone] * (ABNORMAL) CBC auto differential (10/02/2024 5:49 PM EDT) [facility] WBC 7.2 4.8 - 10.8 K/[facility] LAB HEMETOLOGY METHOD 10/02/2024 6:11 PM EDT [facility] RBC 4.70 4.50 - 5.50 M/[facility] LAB HEMETOLOGY METHOD 10/02/2024 6:11 PM [facility] Hemoglobin 15.2 13.5 - 17.5 g/dL LAB HEMETOLOGY METHOD 10/02/2024 6:11 PM [facility] Hematocrit 46.0 42.0 - 54.0 % LAB HEMETOLOGY METHOD 10/02/2024 6:11 PM [facility] MCV 97.0 79.0 - 98.0 FL LAB HEMETOLOGY METHOD 10/02/2024 6:11 PM [facility] MCH 32.1(H) 27.0 - 32.0 pcg LAB HEMETOLOGY METHOD 10/02/2024 6:11 PM [facility] MCHC 33.0 32.0 - 37.0 g/dL LAB HEMETOLOGY METHOD 10/02/2024 6:11 PM [facility] RDW 12.8 11.0 - 15.0 % LAB HEMETOLOGY METHOD 10/02/2024 6:11 PM [facility] Platelets 234 130 - 400 K/mcL LAB HEMETOLOGY METHOD 10/02/2024 6:11 PM [facility] MPV 10.5 7.0 - 11.0 FL LAB HEMETOLOGY METHOD 10/02/2024 6:11 PM [facility] NRBC 0.0 <1.0 % LAB HEMETOLOGY METHOD 10/02/2024 6:11 PM [facility] NRBC Absolute 0.00 <0.10 K/mcL LAB HEMETOLOGY METHOD 10/02/2024 6:11 PM [facility] Neutrophils Relative 59.2 % LAB HEMETOLOGY METHOD 10/02/2024 6:11 PM [facility] Lymphocytes Relative 27.6 % LAB HEMETOLOGY METHOD 10/02/2024 6:11 PM [facility] Monocytes Relative 9.0 % LAB HEMETOLOGY METHOD 10/02/2024 6:11 PM EDT [facility] Eosinophils Relative 3.3 % LAB HEMETOLOGY METHOD 10/02/2024 6:11 PM EDT [facility] Basophils Relative 0.6 % LAB HEMETOLOGY METHOD 10/02/2024 6:11 PM EDT [facility] Immature Granulocytes Relative 0.3 % LAB HEMETOLOGY METHOD 10/02/2024 6:11 PM EDT [facility] Neutrophils Absolute 4.26 1.50 - 7.00 K/mcL LAB HEMETOLOGY METHOD 10/02/2024 6:11 PM EDT [facility] Lymphocytes Absolute 1.99 1.00 - 5.00 K/mcL LAB HEMETOLOGY METHOD 10/02/2024 6:11 PM EDT [facility] Monocytes Absolute 0.65 0.20 - 1.00 K/mcL LAB HEMETOLOGY METHOD 10/02/2024 6:11 PM EDT [facility] Eosinophils Absolute 0.24 0.00 - 0.50 K/mcL LAB HEMETOLOGY METHOD 10/02/2024 6:11 PM EDT [facility] Basophils Absolute 0.04 0.00 - 0.20 K/mcL LAB HEMETOLOGY METHOD 10/02/2024 6:11 PM EDT [facility] Immature Granulocytes Absolute 0.02 0.00 - 0.03 K/mcL LAB HEMETOLOGY METHOD 10/02/2024 6:11 PM EDT [facility] Blood Venous blood specimen / Unknown Venipuncture / Unknown 10/02/2024 5:49 PM EDT 10/02/2024 6:00 PM EDT us Michelle Galloway DO LAB BLOOD ORDERABLES Demi l Result [facility] [address] [place] [address], [place] [phone] * (ABNORMAL) B-type natriuretic peptide (10/02/2024 5:49 PM EDT) [facility] BNP 114(H) <=100 pcg/mL LAB CHEMISTRY METHOD 10/02/2024 6:37 PM EDT [facility] Blood Venous blood specimen / Unknown Venipuncture / Unknown 10/02/2024 5:49 PM EDT 10/02/2024 6:01 PM EDT Michelle Galloway DO LAB BLOOD ORDERABLES Demi l Result [facility] [address] [place] [address], [place] [phone] * Magnesium (10/02/2024 5:49 PM EDT) [facility] Magnesium 2.1 1.9 - 2.6 mg/dL LAB CHEMISTRY METHOD 10/02/2024 6:31 PM EDT [facility] Blood Venous blood specimen / Unknown Venipuncture / Unknown 10/02/2024 5:49 PM EDT 10/02/2024 6:01 PM EDT Michelle Galloway DO LAB BLOOD ORDERABLES Demi l Result [facility] [address] [place] [address], [place] [phone] * Lipase (10/02/2024 5:49 PM EDT) [facility] Lipase 28 13 - 75 unit/L LAB CHEMISTRY METHOD 10/02/2024 6:33 PM EDT [facility] Blood Venous blood specimen / Unknown Venipuncture / Unknown 10/02/2024 5:49 PM EDT 10/02/2024 6:01 PM EDT us Michelle Galloway DO LAB BLOOD ORDERABLES Demi l Result [facility] [address] [place] [address], * (ABNORMAL) Comprehensive metabolic panel (10/02/2024 5:49 PM EDT) Sodium 141 133 - 145 mmol/L LAB CHEMISTRY METHOD 10/02/2024 6:31 PM EDT [facility] Potassium 3.8 3.5 - 5.5 mmol/L LAB CHEMISTRY METHOD 10/02/2024 6:31 PM [facility] Chloride 109 96 - 110 mmol/L LAB CHEMISTRY METHOD 10/02/2024 6:31 PM [facility] CO2 26 21 - 32 mmol/L LAB CHEMISTRY METHOD 10/02/2024 6:31 PM [facility] Anion Gap 6 3 - 11 LAB CHEMISTRY METHOD 10/02/2024 6:31 PM [facility] Glucose 124(H) 70 - 100 mg/dL LAB CHEMISTRY METHOD 10/02/2024 6:31 PM [facility] BUN 19 5 - 25 mg/dL LAB CHEMISTRY METHOD 10/02/2024 6:31 PM [facility] Creatinine 0.89 0.70 - 1.30 mg/dL LAB CHEMISTRY METHOD 10/02/2024 6:31 PM [facility] eGFR 98 >=60 mL/min/1. 73m2 LAB CHEMISTRY METHOD 10/02/2024 6:31 PM [facility] Comment:Calculation based on the Chronic Kidney Disease Epidemiology Collaboration (CKD-EPI) equation refit without adjustment for race. BUN/Creatinine Ratio 21.3 LAB CHEMISTRY METHOD 10/02/2024 6:31 PM [facility] Calcium 9.5 8.5 - 10.5 mg/dL LAB CHEMISTRY METHOD 10/02/2024 6:31 PM EDT [facility] AST (SGOT) 24 10 - 42 unit/L LAB CHEMISTRY METHOD 10/02/2024 6:31 PM EDT [facility] ALT (SGPT) 43 10 - 60 unit/L LAB CHEMISTRY METHOD 10/02/2024 6:31 PM EDT [facility] Alkaline Phosphatase 89 42 - 121 unit/L LAB CHEMISTRY METHOD 10/02/2024 6:31 PM EDT [facility] Total Protein 7.0 6.0 - 8.0 g/dL LAB CHEMISTRY METHOD 10/02/2024 6:31 PM EDT [facility] Albumin 3.6 3.2 - 5.0 g/dL LAB CHEMISTRY METHOD 10/02/2024 6:31 PM EDT [facility] Total Bilirubin 0.2 0.0 - 1.4 mg/dL LAB CHEMISTRY METHOD 10/02/2024 6:31 PM EDT [facility] Blood Venous blood specimen / Unknown Venipuncture / Unknown 10/02/2024 5:49 PM EDT 10/02/2024 6:01 PM EDT us Michelle Galloway DO LAB BLOOD ORDERABLES Demi l Result [facility] [address] [place] [address], from Last 3 Months Insurance [facility] [employer] Care Teams Die Cutter Operator Relationship Specialty Start Date End Date Marleen Jovel MD [address] [place] [id number] PCP - General Family Medicine 10/02/24
== END 2024-12-28 09:11 | disposition home or self-care (01) ==
LOC: HO.XRAY 09:10
PROVIDERS: PCP Family Medicine; Visit Provider Internal Medicine
DX: R13.10 Dysphagia, unspecified (principal)
CPT/HCPCS: 74220

== ENCOUNTER → 2024-12-28 09:12 | Outpatient (BNV) | payer OTHER, SELFPAY | PROVIDERS: PCP Family Medicine; Visit Provider Radiology Diagnostic Radiology | DX: R13.10 Dysphagia, unspecified (principal) | CPT/HCPCS: 74220 ==

== ENCOUNTER → 2025-02-12 08:28 | Outpatient (BNV) | payer OTHER, SELFPAY | PROVIDERS: Visit Provider Radiology Diagnostic Radiology | DX: R60.0 Localized edema (principal) | CPT/HCPCS: 71046 ==

== ENCOUNTER 2025-02-12 09:06 | Outpatient (REF) | payer OTHER, SELFPAY ==
--- NOTE | ~2025-02-12 | XR_ITS ---
EXAMINATION: XR CHEST CLINICAL INFORMATION: Pedal edema COMPARISON: 10/27/2024, 06/22/2024. TECHNIQUE: 2 views of the chest were obtained. FINDINGS: There is mild cardiac enlargement. Mediastinal hilar contours appear normal. The lungs are clear bilaterally. There is no pneumothorax or pleural effusion. There is no focal osseous or soft tissue abnormality. There are degenerative changes of the spine. XR/XR chest 2V IMPRESSION: No active pulmonary disease. No significant change from 10/27/2024. Electronically signed by: Alexandro Blandon MD 02/12/2025 09:23 AM EDT
--- OUTSIDE RECORDS SUMMARY | 2025-02-12 09:16 | XMS_ITS | Clinical Summary ---
Author Organization [facility] Address [address] [place] [address] Phone Care Team Providers Care Lumber Inspector Name Role Phone Marleen Jovel MD Primary Care Provider [phone] Allergies No known active allergies Medications No known medications Active Problems No known active problems Medical History Medical History Date Comments Hypertension [...] Years (1 of 2 - PCV) 1983 Colorectal Cancer Screening: Colonoscopy 05/27/2022 Social Influencers of Health Screening 05/27/2022 COVID-19 Vaccine ( - season) 2024 01/07/2021, 12/17/2020 RSV Immunization Adult Patients (1 - Risk 60-74 years 1-dose series) 2024 Hepatitis B Vaccines (3 of 3 - 19+ 3-dose series) 05/22/2024 12/18/2023, 11/20/2023 Depression Screening 06/24/2024 Zoster Vaccines (2 of 2) 11/12/2024 09/17/2024 [...] Procedure Name Priority Date/Time Associated Diagnosis Comments COMPREHENSIVE METABOLIC PANEL STAT 10/02/2024 5:49 PM EDT from Last 3 Months or Most Recently Relevant to Health Maintenance Results * (ABNORMAL) Comprehensive metabolic panel (10/02/2024 5:49 PM EDT) Sodium 141 133 - 145 mmol/L LAB CHEMISTRY METHOD 10/02/2024 6:31 PM [facility] Potassium 3.8 3.5 - 5.5 mmol/L LAB CHEMISTRY METHOD 10/02/2024 6:31 PM [facility] Chloride 109 96 - 110 mmol/L LAB CHEMISTRY METHOD 10/02/2024 6:31 PM [facility] CO2 26 21 - 32 mmol/L LAB CHEMISTRY METHOD 10/02/2024 6:31 PM [facility] Anion Gap 6 3 - 11 LAB CHEMISTRY METHOD 10/02/2024 6:31 PM [facility] Glucose 124(H) 70 - 100 mg/dL LAB CHEMISTRY METHOD 10/02/2024 6:31 PM [facility] BUN 19 5 - 25 mg/dL LAB CHEMISTRY METHOD 10/02/2024 6:31 PM [facility] Creatinine 0.89 0.70 - 1.30 mg/dL LAB CHEMISTRY METHOD 10/02/2024 6:31 PM [facility] eGFR 98 >=60 mL/min/1. 73m2 LAB CHEMISTRY METHOD 10/02/2024 6:31 PM [facility] Comment:Calculation based on the Chronic Kidney Disease Epidemiology Collaboration (CKD-EPI) equation refit without adjustment for race. BUN/Creatinine Ratio 21.3 LAB CHEMISTRY METHOD 10/02/2024 6:31 PM [facility] Calcium 9.5 8.5 - 10.5 mg/dL LAB CHEMISTRY METHOD 10/02/2024 6:31 PM [facility] AST (SGOT) 24 10 - 42 unit/L LAB CHEMISTRY METHOD 10/02/2024 6:31 PM [facility] ALT (SGPT) 43 10 - 60 unit/L LAB CHEMISTRY METHOD 10/02/2024 6:31 PM [facility] Alkaline Phosphatase 89 42 - 121 unit/L LAB CHEMISTRY METHOD 10/02/2024 6:31 PM EDT [facility] Total Protein 7.0 6.0 - 8.0 g/dL LAB CHEMISTRY METHOD 10/02/2024 6:31 PM EDT [facility] Albumin 3.6 3.2 - 5.0 g/dL LAB CHEMISTRY METHOD 10/02/2024 6:31 PM EDT [facility] Total Bilirubin 0.2 0.0 - 1.4 mg/dL LAB CHEMISTRY METHOD 10/02/2024 6:31 PM EDT [facility] Blood Venous blood specimen / Unknown Venipuncture / Unknown 10/02/2024 5:49 PM EDT 10/02/2024 6:01 PM EDT us Ronaldo Tray Galloway DO LAB BLOOD ORDERABLES Demi zoya Result [facility] [address] [place] [address], from Last 3 Months or Most Recently Relevant to Health Maintenance Insurance [employer] Care Teams Lumber Inspector Relationship Specialty Start Date End Date Marleen Jovel MD [address] [place] [address] PCP - General Family Medicine 10/02/24
--- OUTSIDE RECORDS SUMMARY | 2025-02-12 09:16 | XMS_ITS | Encounter Summary ---
Author Organization [employer] Address [address] [facility] [address] [place] [address] Care Team Providers Care Color Developer Name Role Phone Marleen Jovel MD Primary Care Provider [phone] Encounter Details Date Type Department Care Team (Late st Contact Info) Description 10/05/2024 Orders Only [facility] [address] [place] [address] Provider, MD Wang Social History Tobacco Use [...] documented as of this encounter Care Teams Color Developer Relationship Specialty Start Date End Date Marleen Jovel MD [address] [place] [address] PCP - General Family Medicine 10/28/23 documented as of this encounter
[2025-02-12 11:54] LABS: MANUAL DIFF FLAG NO
[2025-02-12 12:02] LABS: Hematocrit 44.4 % (42.0-52.0); Hemoglobin 14.6 g/dl (14.0-18.0); Imm Gran Abs Auto 0.01 X10*3/uL (0.00-0.03); Imm Gran Pct Auto 0.1 % (0.0-0.4); Lymphocytes Absolute Auto 1.3 X10*3/uL (1.2-4.9); Mean Corpuscular HGB Conc 32.9 g/dl (31.0-36.0); Mean Corpuscular Hemoglobin 32.1 pg (27.0-33.0); Mean Corpuscular Volume 97.6 fL (80.0-98.0); NRBC Abs Auto 0.000 X10*3/uL (0.0-0.012); NRBC Pct Auto 0.0 /100WBC (0.0-0.2); Platelet Count 143 X10*3/uL (160-400); Red Blood Count 4.55 X10*6/uL (4.60-5.80); White Blood Count 7.1 X10*3/uL (4.8-10.8)
[2025-02-12 12:11] LABS: B Type Natriuretic Peptide 133 pg/mL (<100)
[2025-02-12 12:33] LABS: Alanine Aminotransferase 30 U/L (0-40); Albumin Level 4.1 g/dL (3.5-5.0); Alkaline Phosphatase 73 U/L (39-117); Anion Gap 12 (12-20); Aspartate Amino Transferase 40 U/L (5-37); Blood Urea Nitrogen 15 mg/dL (9-16); Calcium 9.1 mg/dL (8.4-10.2); Carbon Dioxide 26 mmol/L (22-29); Chloride 110 mmol/L (96-108); Estimated Glomerular Filt Rate > 60; Potassium 3.8 mmol/L (3.3-5.1); Sodium 144 mmol/L (135-145); Total Protein 6.8 g/dL (6.5-8.0)
[2025-02-12 13:54] LABS: Prostate Specific Antigen 5.41 ng/mL (<0.05-4.0)
== END 2025-02-12 09:07 | disposition home or self-care (01) ==
LOC: HO.HHCX 09:06
PROVIDERS: Nurse Practitioner Family; PCP Family Medicine; Referring Provider Family Medicine; Visit Provider Family Medicine
DX: R97.20 Elevated prostate specific antigen [PSA] (principal); R60.0 Localized edema; R63.5 Abnormal weight gain; I10 Essential (primary) hypertension
CPT/HCPCS: 36415; 71046; 80053; 83880; 84153; 85025

== ENCOUNTER 2025-02-16 11:22 | Emergency (ER) | payer OTHER, SELFPAY ==
--- OUTSIDE RECORDS SUMMARY | 2025-02-12 08:40 | XMS_ITS | Encounter Summary ---
Author Organization [employer] Address [address] [facility] [address] [place] [address] Care Team Providers Care Cad Designer Name Role Phone Marleen Jovel MD Primary Care Provider [phone] Reason for Referral * Consultation (Urgent) - Closed Specialty Diagnoses / Procedures Referred By Contac t Referred To Contact Cardiology Diagnoses Pedal edema Tru Lomeli MD [address] [place] [phone] Phone: tel: fax: [address] Phone: tel: fax: Referral ID Status Reason Start Date Expiration Date V isits Requested Visits Authorized [id number] Closed Specialty Services Required 02/13/2025 02/13/2026 1 1 Reason for Visit * Reason Comments Leg Swelling Encounter Details Date Type Department Care Team ([facility] Contact Info) Description 02/12/2025 8:40 AM EDT Office Visit [facility] [address] [place] [address] [phone] Tru Lomeli MD [address] [place] [address] [phone] Pedal edema (Primary Dx) Social History Tobacco Use Types Packs/Day Years Used Date Smoking Tobacco: Never Passive Smoke Exposure: Never Smokeless Tobacco: Never Tobacco Cessation:Counseling Given: Not Answered Alcohol Use Standard Drinks/Week Comments Yes 0 [...] Sign Reading Time Taken Comments Blood Pressure 126/83 02/12/2025 8:42 AM EDT Pulse 83 02/12/2025 8:42 AM EDT Temperature 36.7 C (98.1 F) 02/12/2025 8:42 AM EDT Respiratory Rate 18 02/12/2025 8:42 AM EDT Oxygen Saturation 97% 02/12/2025 8:42 AM EDT Inhaled Oxygen Concentration - - Weight 99.8 kg (220 lb) 02/12/2025 8:42 AM EDT Height - - Body Mass Index 34.53 10/29/2024 11:10 AM EDT documented in this encounter Progress Notes * Tru Lomeli MD - 02/12/2025 8:40 AM EDT Subjective History was provided by the patient. Howard Carson is a 59 y.o. male who presents for evaluation of ongoing bilateral pedal edema for 3 months now. Was evaluated in [facility] in 10/2024. The appearance has not changed much since that visit. Underlying venous stasis dermatitis. Previously treated for right leg cellulitis with Doxycycline. Denies any significant SOB or CP. Previously had negative BNP and D-dimer (10/2024). BUN/Cr & Microalbumin within normal (10/2024). Denies any recent travels. Denies new medications. Denies injury or fall. Objective Vitals: 02/12/25 0842 BP: 126/83 BP Location: Right arm Patient Position: Sitting BP Cuff Size: Large adult Pulse: 83 Resp: 18 Temp: 98.1 ??F (36.7 ??C) TempSrc: Temporal SpO2: 97% Weight: 220 lb (99.8 kg) Physical Exam Vitals reviewed. Constitutional: General: He is not in acute distress. Appearance: Normal appearance. He is not ill-appearing, toxic-appearing or diaphoretic. HENT: Head: Normocephalic and atraumatic. Right Ear: External ear normal. Left Ear: External ear normal. Nose: Nose normal. Mouth/Throat: Mouth: Mucous membranes are moist. Pharynx: Oropharynx is clear. Eyes: Extraocular Movements: Extraocular movements intact. Conjunctiva/sclera: Conjunctivae normal. Neck: Vascular: No carotid bruit. Comments: No JVD Cardiovascular: Rate and Rhythm: Normal rate and regular rhythm. Heart sounds: Normal heart sounds. Pulmonary: Effort: Pulmonary effort is normal. No respiratory distress. Breath sounds: Normal breath sounds. No wheezing, rhonchi or rales. Chest: Chest wall: No tenderness. Musculoskeletal: General: Swelling present. Normal range of motion. Cervical back: Normal range of motion and neck supple. Right lower leg: Edema present. Left lower leg: Edema present. Comments: 1+ pitting edema BLE up to mid-calf; RLE erythema and LLL hyperpigmentation; negative Blanca's; no calf tenderness; no cords Lymphadenopathy: Cervical: No cervical adenopathy. Skin: General: Skin is warm and dry. Neurological: General: No focal deficit present. Mental Status: He is alert and oriented to person, place, and time. Psychiatric: Mood and Affect: Mood normal. Behavior: Behavior normal. Howard was seen today for leg swelling. Diagnoses and all orders for this visit: Pedal edema (Primary) - XR Chest 2 Views; Future - furosemide (Lasix) 20 MG tablet; Take 1 tablet (20 mg) by mouth Once per day for 7 days. - Comprehensive Metabolic Panel; Future - B Type Natriuretic Peptide (BNP); Future - CBC auto differential; Future Patient presents to [facility] due to bilateral pedal edema for several months No associated calf tenderness; negative Blanca's; no cords Previous urine without proteinuria; within normal renal function No clinical evidence of CHF CXR without pleural effusion, but mild cardiac enlargement Will refer to Cardiology for further evaluation Normal pulmonary exam without respiratory distress Encouraged to keep legs elevated at night Trial of Furosemide 20mg daily for 7 days Check CBC, CMP, & BNP Indications for UC/ER use reviewed Advised to contact the clinic if symptoms persist or worsens documented in this encounter Plan of Treatment Scheduled Referrals Name Type Priority Associated Diagnoses Order Schedule Referral to Cardiology Outpatient Referral Urgent Pedal edema Expected: 02/13/2025 (Approximate), Expires: 02/13/2026 documented as of this encounter Procedures Procedure Name Priority Date/Time Associated Diagnosis Comments CBC WITH AUTO DIFFERENTIAL Routine 02/12/2025 10:08 AM EDT Pedal edema B TYPE NATRIURETIC PEPTIDE (BNP) Routine 02/12/2025 10:08 AM EDT Pedal edema COMPREHENSIVE METABOLIC PANEL Routine 02/12/2025 10:08 AM EDT Pedal edema XR CHEST 2 VIEWS Routine 02/12/2025 8:28 AM EDT Pedal edema documented in this encounter Results * (ABNORMAL) CBC auto differential (02/12/2025 10:08 AM EDT) White Blood Count 7.1 4.8 - 10.8 X10*3/uL [facility] Red Blood Count 4.55(L) 4.60 - 5.80 X10*6/uL [facility] Hemoglobin 14.6 14.0 - 18.0 g/dl [facility] Hematocrit 44.4 42.0 - 52.0 % [facility] Mean Corpuscular Volume 97.6 80.0 - 98.0 fL [facility] Mean Corpuscular Hemoglobin 32.1 27.0 - 33.0 pg [facility] Mean Corpuscular HGB Conc 32.9 31.0 - 36.0 g/dl [facility] Red Cell Distribution Width 13.2 11.0 - 16.0 % [facility] Platelet Count 143(L) 160 - 400 X10*3/uL [facility] Mean Platelet Volume 11.4 9.4 - 12.4 fL [facility] Neutrophils Percent Auto 70.3 45 - 73 % [facility] Imm Gran Pct Auto 0.1 0.0 - 0.4 % [facility] Lymphocytes Percent Auto 18.5(L) 20 - 40 % [facility] Monocytes Percent Auto 8.9 2 - 11 % [facility] Eosinophils Percent Auto 1.8 0 - 4 % [facility] Basophils Percent Auto 0.4 0 - 2 % [facility] NRBC Pct Auto 0.0 0.0 - 0.2 /100WBC [facility] Neutrophils Absolute Auto 5.0 2.0 - 8.3 x10*3/uL [facility] Imm Gran Abs Auto 0.01 0.00 - 0.03 X10*3/uL [facility] Lymphocytes Absolute Auto 1.3 1.2 - 4.9 X10*3/uL [facility] Monocytes Absolute Auto 0.6 0.1 - 1.2 X10*3/uL [facility] Eosinophils Absolute Auto 0.1 0.0 - 0.4 X10*3/uL [facility] Basophils Absolute Auto 0.0 0.0 - 0.2 X10*3/uL [facility] NRBC Abs Auto 0.000 0.0 - 0.012 X10*3/uL [facility] Blood Venous blood specimen / Unknown 02/12/2025 10:08 AM EDT 02/12/2025 11:51 AM EDT us Tru Lomeli MD LAB BLOOD ORDERABLES Final Resul t Performing Organization Address City/[facility]/ZIP Co de Phone Number [facility] [address] [place] [phone] * (ABNORMAL) B Type Natriuretic Peptide (BNP) (02/12/2025 10:08 AM EDT) B Type Natriuretic Peptide 133(H) <100 pg/mL [facility] Blood Venous blood specimen / Unknown 02/12/2025 10:08 AM EDT 02/12/2025 11:50 AM EDT us Tru Lomeli MD LAB BLOOD ORDERABLES Final Resul t Performing Organization Address [facility] Co de Phone Number [facility] [address] [place] [phone] * (ABNORMAL) Comprehensive Metabolic Panel (02/12/2025 10:08 AM EDT) Pathologist [facility] Sodium 144 135 - 145 mmol/L [facility] Potassium 3.8 3.3 - 5.1 mmol/L [facility] Chloride 110(H) 96 - 108 mmol/L [facility] Carbon Dioxide 26 22 - 29 mmol/L [facility] Anion Gap 12 12 - 20 [facility] Urea Nitrogen (BUN) 15 9 - 16 mg/dL [facility] Creatinine, Serum 0.83 0.5 - 1.4 mg/dL [facility] Estimated Glomerular Filt Rate >60 [facility] Comment:Chronic Kidney Disea se: Estimated GFR < 60 mL/min/1.97d3Jickrb Kidney Disease: Estimated GFR < 15 mL/min/1.73m2 Glucose 104 60 - 115 mg/dL [facility] Calcium 9.1 8.4 - 10.2 mg/dL [facility] Bilirubin, Total 0.4 0.0 - 1.0 mg/dL [facility] Aspartate Amino Transferase 40(H) 5 - 37 U/L [facility] Alanine Aminotransferase 30 0 - 40 U/L [facility] Total Protein 6.8 6.5 - 8.0 g/dL [facility] Albumin Level 4.1 3.5 - 5.0 g/dL [facility] Alkaline Phosphatase 73 39 - 117 U/L [facility] Blood Venous blood specimen / Unknown 02/12/2025 10:08 AM EDT 02/12/2025 11:51 AM EDT Tru Lomeli MD LAB BLOOD ORDERABLES Final Resul t Performing Organization Address City/State/[facility] Co de Phone Number [facility] [address] [place] [phone] * XR Chest 2 Views (02/12/2025 8:28 AM EDT) Anatomical Region Laterality Modality Chest Radiographic Vernell ging 02/12/2025 8:28 AM EDT Narrative 02/12/2025 9:26 AM EDT [address] [address] XRay Report Signed Patient: Howard Junior MR#: [id number] : 1965 Acct:[id number] Age/Sex: 59 / M ADM Date: 02/12/25 Loc: [facility] Attending Dr: Tru Lomeli MD Ordering Physician: Tru Lomeli MD Date of Service: 02/12/25 Procedure(s): XR chest 2V Accession Number(s): [id number] cc: Tru Lomeli MD EXAMINATION: XR CHEST CLINICAL INFORMATION: Pedal edema COMPARISON: 10/27/2024, 06/22/2024. TECHNIQUE: 2 views of the chest were obtained. FINDINGS: There is mild cardiac enlargement. Mediastinal hilar contours appear normal. The lungs are clear bilaterally. There is no pneumothorax or pleural effusion. There is no focal osseous or soft tissue abnormality. There are degenerative changes of the spine. XR/XR chest 2V IMPRESSION: No active pulmonary disease. No significant change from 10/27/2024. Electronically signed by: Alexandro Blandon MD 02/12/2025 09:23 AM EDT RP Dictated By: Alexandro Blandon MD Signed By: <Electronically signed by Alexandro Blandon MD in OV> 02/12/25922 DD/ 7 TD/TT: 02/12/25914 Senior Manufacturing Engineer: Procedure Note Donotuseinterpreter, Image - 02/12/[address] [address] XRay Report Signed Patient: Howard JuniorMR#: [id number] : 1965Acct:[id number] Age/Sex: 59 / MADM Date: 02/12/25 [facility]: Tru Lomeli MD Ordering Physician: Tru Lomeli MD Date of Service: 02/12/25 Procedure(s): XR chest 2V Accession Number(s): [id number] cc: Tru Lomeli MD EXAMINATION: XR CHEST CLINICAL INFORMATION: Pedal edema COMPARISON: 10/27/2024, 06/22/2024. TECHNIQUE: 2 views of the chest were obtained. FINDINGS: There is mild cardiac enlargement. Mediastinal hilar contours appear normal. The lungs are clear bilaterally. There is no pneumothorax or pleural effusion. There is no focal osseous or soft tissue abnormality. There are degenerative changes of the spine. XR/XR chest 2V IMPRESSION: No active pulmonary disease. No significant change from 10/27/2024. Electronically signed by: Alexandro Blandon MD 02/12/2025 09:23 AM EDT RP Dictated By: Alexandro Blandon MD Signed By: <Electronically signed by Alexandro Blandon MD in OV> 02/12/25922 DD/ 7 TD/TT: 02/12/25914 Senior Manufacturing Engineer: Tru Lomeli MD IMG XR PROCEDURES Final Result documented in this encounter Visit Diagnoses Diagnosis Pedal edema- Primary Edema documented in this encounter Additional Health Concerns Assessment Noted Time PHQ-9 Depression Total Score: 0 10/28/19 9:20 AM EDT documented as of this encounter Care Teams Cad Designer Relationship Specialty Start Date End Date Marleen Jovel MD [address] [place] [address] PCP - General Family Medicine 10/28/23 documented as of this encounter
--- NOTE | ~2025-02-16 | XR_ITS ---
Exam: 2 view x-ray bilateral tibia and fibula. INDICATION: Leg swelling. Prior: None TECHNIQUE: AP and lateral views lower extremity, tibia and fibula FINDINGS: Right: No erosions or lytic lesions are seen. No periosteal abnormality is evident. The ankle joints are grossly unremarkable. Left: No erosions or lytic lesions are seen. No periosteal abnormality is evident. The ankle joints are grossly unremarkable. XR/XR Tibia Fibula Marty 2V Impression: Unremarkable bilateral lower legs. Electronically signed by: Keegan Zhang MD 02/16/2025 01:44 PM EDT
--- NOTE | ~2025-02-16 | US_ITS ---
EXAMINATION: US TRIPLEX LOWER EXTREMITY, BILATERAL CLINICAL INFORMATION: Bilateral lower extremity edema and pain. COMPARISON: None available. TECHNIQUE: Color-flow triplex imaging with spectral analysis and compression Doppler were performed on the bilateral lower extremities. FINDINGS: Respiratory variation, normal compression and augmented flow are noted throughout the bilateral lower extremities. The visualized common femoral vein, superficial femoral vein, profunda femoral vein, popliteal vein and midcalf peroneal and posterior tibial venous segments show no evidence of deep venous thrombosis bilaterally. There is no Mata's cyst. US/US venous duplex LE BI IMPRESSION: No evidence of deep venous thrombosis involving the bilateral lower extremities. Electronically signed by: Alexandro Blandon MD 02/16/2025 03:00 PM EDT
--- OUTSIDE RECORDS SUMMARY | 2025-02-16 10:00 | XMS_ITS | Encounter Summary ---
Author Organization [employer] Address [address] [facility] [address] [place] [address] Care Team Providers Care Special Investigator Name Role Phone Marleen Jovel MD Primary Care Provider [phone] Reason for Referral * Consultation (Routine) - Authorized Specialty Diagnoses / Procedures Referred By Contac t Referred To Contact Vascular Surgery Diagnoses Lower extremity edema Noel Conn MD [address] [place] [address] Phone: tel: fax: [address] Phone: tel: fax: Referral ID Status Reason Start Date Expiration Date Visits Requested Visits Authorized [id number] Authorized Specialty Services Required 02/16/2025 02/16/2026 1 1 Encounter Details Date Type Department Care Team (Late st Contact Info) Description 02/16/2025 10:00 AM EDT Office Visit [facility] [address] [place] [address] [phone] Noel Conn MD [address] [place] [id number] Cellulitis of right leg (Primary Dx); Cellulitis of left leg; Lower extremity edema; Dyspnea on exertion; Rhinosinusitis Social History Tobacco Use Types Packs/Day Years [...] Sign Reading Time Taken Comments Blood Pressure 126/76 02/16/2025 10:23 AM EDT Pulse 68 02/16/2025 10:23 AM EDT Temperature 36.8 C (98.2 F) 02/16/2025 10:23 AM EDT Respiratory Rate 14 02/16/2025 10:23 AM EDT Oxygen Saturation 96% 02/16/2025 10:23 AM EDT Inhaled Oxygen Concentration - - Weight - - Height - - Body Mass Index - - documented in this encounter Progress Notes * Noel Conn MD - 02/16/2025 10:00 AM EDT Subjective Patient ID: Howard Carson is a 59 y.o. male. HPI From walk-in clinic visit 4 days ago: Presents for evaluation of ongoing bilateral pedal edema for 3 months now. Was evaluated in [facility] in10/2024. The appearance has not changed much since that visit. Underlying venous stasis dermatitis. Previously treated for right leg cellulitis with Doxycycline. Denies any significant SOB or CP. Previously had negative BNP and D-dimer (10/2024). BUN/Cr & Microalbumin within normal (10/2024). Prescribed Lasix 20 mg daily for 7 days. Chest x-ray done which was read as no active pulmonary disease. BMP normal except for chloride of 110 CBC normal except for platelet count 143. BNP slightly elevated at 133. PSA elevated at 5.41, followed by [facility] urology. Kirill?? returns to walk-in clinic today because he states that 5 days ago he had onset of pain and redness left lower leg that is spreading proximally. + tactile fever, chills 2 days ago. No n/v. Advil was helping pain. Also has SOB on exertion that started 1 month ago with associated wheezing, resolves with albuterolHFA. Has not been using Arnuity Ellipta. No cough. Treated with doxycycline 10/27/2024 for right leg cellulitis. Lives alone. 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 Never smoked. Patient Active Problem List Diagnosis Date Noted SOB (shortness of breath) 10/27/2024 Cellulitis of lower extremity 10/27/2024 Venous stasis dermatitis 10/27/2024 Acute non intractable tension-type headache 05/01/2024 Abnormal EKG 05/01/2024 Umbilical hernia without obstruction and without gangrene 11/14/2023 Right lateral epicondylitis 11/14/2023 Postinflammatory hyperpigmentation 11/14/2023 Nocturia 10/28/2023 History of right inguinal hernia repair 10/28/2023 History of lumbar laminectomy 10/28/2023 Hematuria 10/28/2023 Acid reflux 10/28/2023 Iliotibial band syndrome of left side 10/28/2023 SI (sacroiliac) joint dysfunction 10/28/2023 Piriformis syndrome of left side 10/28/2023 Epigastric pain 12/18/2022 Bacterial sinusitis 12/18/2022 Essential hypertension 09/10/2022 Constipation 09/10/2022 Class 1 obesity 09/10/2022 Asthma, mild intermittent 09/10/2022 Low back pain, unspecified 08/06/2022 The following portions of the chart were reviewed this encounter and updated as appropriate: Tobacco Allergies Meds Problems Med Hx Surg Hx Fam Hx Review of Systems Constitutional: Positive for chills and fever. Respiratory: Positive for shortness of breath and wheezing. Cardiovascular: Negative for chest pain. Gastrointestinal: Negative for abdominal pain. Skin: Positive for rash. Neurological: Negative for headaches. Objective Physical Exam Constitutional: Appearance: Normal appearance. HENT: Nose: Nose normal. Eyes: Conjunctiva/sclera: Conjunctivae normal. Pupils: Pupils are equal, round, and reactive to light. Cardiovascular: Rate and Rhythm: Normal rate and regular rhythm. Pulses: Dorsalis pedis pulses are 2+ on the right side and 2+ on the left side. Heart sounds: No murmur heard. Pulmonary: Effort: Pulmonary effort is normal. Breath sounds: Normal breath sounds. Musculoskeletal: General: Normal range of motion. Cervical back: No tenderness. Right lower le+ Pitting Edema present. Left lower le+ Edema present. Skin: Findings: No rash. Comments: Right leg: Diffuse erythema with increased warmth and tenderness from ankle area extending proximally over the lower half of the leg. Left leg: Chronic hyperpigmentation of the pretibial skin with surrounding erythema and increased warmth. Neurological: Mental Status: He is alert. Gait: Gait is intact. Psychiatric: Mood and Affect: Mood normal. Behavior: Behavior normal. Procedures Assessment/Plan Diagnoses and all orders for this visit: Cellulitis of right leg Due to extensive cellulitis, and asymmetric swelling and edema compared to left leg, Kirill?? is goingto the ED now for further evaluation and treatment. ? right lower extremity DVT. Cellulitis of left leg As above Lower extremity edema Referred to vascular surgery. Dyspnea on exertion Abnormal chest x-ray done 4 days ago. BNP was minimally elevated 4 days ago. Symptoms most likely related to asthma. I refilled albuterol HFA and Arnuity Ellipta, and advised him to restart Arnuity Ellipta daily. Prescribed spacer for albuterol HFA. Return to clinic if not improving Rhinosinusitis - albuterol 108 (90 Base) MCG/ACT inhaler; Inhale 2 puffs every 4 (four) hours if needed for wheezing or shortness of breath. - fluticasone furoate (Arnuity Ellipta) 100 MCG/ACT inhaler; Inhale 1 puff Once per day. Rinse mouth with water after use to reduce aftertaste and incidence of candidiasis. Do not swallow. Other orders - Spacer/Aero-Holding Chambers (OptiChamber Torri) misc; 1 each every 4 (four) hours if needed (asthma). documented in this encounter Plan of Treatment Scheduled Referrals Name Type Priority Associated Diagnoses Orde r Schedule Referral to Vascular Surgery Outpatient Referral Routine Lower extremity edema Expected: 02/16/2025 (Approximate), Expires: 02/16/2026 documented as of this encounter Visit Diagnoses Diagnosis Cellulitis of right leg- Primary Cellulitis of left leg Lower extremity edema Edema Dyspnea on exertion Other dyspnea and respiratory abnormality Rhinosinusitis documented in this encounter Additional Health Concerns Assessment Noted Time PHQ-9 Depression Total Score: 0 10/28/19 9:20 AM EDT documented as of this encounter Care Teams Special Investigator Relationship Specialty Start Date End Date Marleen Jovel MD [address] [place] [address] PCP - General Family Medicine 10/28/23 documented as of this encounter
[2025-02-16 12:40] VITALS: BP 124/87; PULSE 62; RESP 16; TEMP 36.8; O2SAT 98; BMI 33.7
--- NOTE | 2025-02-16 12:50 | ED_ITS ---
HPI - General Adult General Chief complaint: Skin/Abscess/Foreign Body Stated complaint: Infection, sent from clinic Time Seen by Provider: 02/16/25 15:50 Source: patient Mode of arrival: ambulatory Limitations: no limitations History of Present Illness ED Provider: Sofia Garcia PA-C HPI narrative: Patient is a 59 year old assigned male at with a history of HTN, umbilical hernia, and recurrent cellulitis in his lower extremities presenting to the emergency department today with lower leg redness and swelling. Patient states that over the last 5 days he has had bilateral lower extremity pain and swelling with redness. Patient denies any other complaints at this time. Onset (ago): day(s) () Related Data Home Medications ?Medication ?Instructions ?Recorded ?Confirmed betamethasone valerate 0.1 % 1 appl topical DAILY 12/1508/17/24 topical ointment blood pressure test kit-large #1 ea 11/28/23 07/27/24 cetirizine 10 mg tablet 10 mg PO DAILY 11/28/2307/26 tizanidine 2 mg tablet 2 mg PO BID PRN muscle spasm 11/28/23 08/17/24 tramadol 50 mg tablet 50 mg PO TID PRN Pain 08/17/24 pantoprazole 20 mg tablet,delayed 20 mg PO DAILY 07/2708/17/24 release cholecalciferol (vitamin D3) 50 50 mcg PO DAILY mcg (2,000 unit) capsule fluticasone furoate 100 1 inh inhalation DAILY 09/28 mcg/actuation blister powder for inhalation (Arnuity Ellipta) Previous Rx's ?Medication ?Instructions ?Recorded albuterol sulfate 90 mcg/actuation 2 puff inhalation Q 4-6H PRN 06/22/24 aerosol inhaler shortness of breath or wheez ing #6.7 grams polyethylene glycol 3350 17 238 g PO ONCE #238 grams 0 09/28/24 gram/dose oral powder (Miralax) cephalexin 500 mg capsule 500 mg PO Q6H 7 days #28 cap s 02/16/25 Allergies Allergy/AdvReac Type Severity Reaction Status Date / Time No Known Allergies Allergy Verified 02/16/25 12:43 Review of Systems 2 Constitutional: Constitutional: Reports as per HPI Eyes: Eyes: Reports as per HPI ENT: Reports as per HPI Cardiovascular: Cardiovascular: Reports as per HPI Respiratory: Respiratory: Reports as per HPI Gastrointestinal: Gastrointestinal: Reports as per HPI Genitourinary: Genitourinary: Reports as per HPI Musculoskeletal: Comments: bilateral lower leg swelling, pain, and redness Integumentary/Breasts: Skin/Breast: Reports as per HPI Neurologic: Reports as per HPI Psychiatric: Psychiatric: Reports as per HPI Endocrine: Endocrine: Reports as per HPI Hematologic/Lymphatic: Hematologic/Lymphatic: Reports as per HPI Allergic/Immunologic: Allergic/Immunologic: Reports as per HPI [facility] Past Medical History Attestation statement: The following information was validated with the patient. Source: old records reviewed and nursing notes reviewed Medical History Abnormal EKG Arthritis Back pain Scoliosis Habitual snoring Bronchitis Asthma Nocturia GERD (gastroesophageal reflux disease) HTN (hypertension) Surgical History History of umbilical hernia repair (08/17/24) History of appendectomy H/O hand surgery Hx of hernia repair Hx of release of tendon Hx of bilateral inguinal hernia repair Social History Social History Are you a primary career consultant to a significant other at home: No Do you presently have visiting nurse or other home services: No Alcohol intake: current Alcohol intake frequency: a few times a week Patient Tobacco Use Status: Never used Tobacco Advance Directives: No Advance Directives Information Provided: Yes Physical Exam ED Vital Signs: Vital Signs - 24 hr 02/16/25 16:31 Temperature 98.2 F Pulse Rate 62 Respiratory Rate 16 Blood Pressure 124/87 Pulse Oximetry 98 Oxygen Delivery Method Room Air BMI result Body Mass Index 33.7 Const General: cooperative, no acute distress, alert and awake Nutritional Appearance: well nourished Orientation/consciousness: patient oriented x3 HENMT Head: Yes normal to inspection and Yes atraumatic Ears: hearing grossly normal bilaterally and external ears normal General nose exam: Normal external nose present, no nasal discharge noted and no epistaxis Face and sinus: Yes normal facial exam, No abrasion and No laceration Mouth: Normal oral and palatal mucosa present, no drooling and no muffled voice Eyes General: appearance normal, both eyes and all related structures Periorbital: periorbital findings normal Eyelids: Yes eyelids normal Conjunctivae: conjunctivae normal Pupils: Equal, round and reactive pupils present EOM: EOMs intact bilaterally Neck Neck: Yes normal visual inspection and Yes full ROM Resp Effort & Inspection: normal respiratory effort and able to speak in complete sentences Neuro General: patient oriented x3, moves all extremities and CN's II-XI intact bilaterally Cranial nerves: Yes Equal, round and reactive pupils present Cognition (Neuro): normal cognition Extrem Other: General: Yes full ROM and Yes capillary refill normal Psych Appearance: grossly normal Mental Status: mental status grossly normal Affect: normal affect Attitude: cooperative Thought process: Normal thought process present Thought content: Normal thought content present Insight: Good insight present (Psych) Course Course Course Narrative: RME: 59-year-old male presents to ED for bilateral leg edema with redness for the past 5 days. Patient is sent from urgent care for evaluation. Bilateral leg redness with a warmth. Ultrasound labs x-ray ordered Medical Decision Making Medical Decision Making MDM Narrative: Patient is a 59 year old assigned male at with a history of HTN, umbilical hernia, and recurrent cellulitis in his lower extremities presenting to the emergency department today with lower leg redness and swelling. Patient's physical exam was as noted in the physical exam portion of this note. Both of the patient's lower legs showed evidence of venous stasis dermatitis however, the patient's right lower leg (pictured in the chart) was warm and red - concerning for cellulitis. Patient's blood work showed a CRP of 1.09 but were otherwise unremarkable. Patient's bilateral tib fib x-rays ordered by the provider in triage showed no acute process. Patient's bilateral lower leg US showed no acute process. I explained my physical exam findings as well as all test results to the patient. I answered all questions asked by the patient. I stressed the importance of the patient taking his medication as directed (either prescribed or as the over the counter packaging recommends). I stressed the importance of the patient following up with his primary care provider. I stressed the importance of the patient returning to the emergency department immediately if his symptoms were to worsen or if he were to develop any dizziness, shortness of breath, difficulty breathing, chest pain, blurry vision, loss of vision, nausea, vomiting, abdominal pain, fever, chills, back pain, or any other complaints. Patient verbalized agreement and understanding with this treatment plan and discharge. Differential Diagnosis Differential Diagnoses: The differential diagnosis associated with the presentation includes Cellulitis Venous stasis dermatitis Admission/Observation Consideration of admission/observation: Escalation of care including admission/observation considered Patient would have been admitted to the hospital had his work up had any findings where hospital admission was appropriate and his clinical presentation warranted hospital admission. Lab Data [facility] Lab Attestation statement: I reviewed the patient's lab results. My interpretation of these results are in the [facility] Rationale portion of this note. 02/16/25 13:14 02/16/25 13:14 Labs: Lab Results 02/16/25 Range/Units 13:14 WBC 6.7 (4.8-10.8) X10*3/uL RBC 4.53 L (4.60-5.80) X10*6/uL Hgb 14.6 (14.0-18.0) g/dl Hct 43.2 (42.0-52.0) % MCV 95.4 (80.0-98.0) fL MCH 32.2 (27.0-33.0) pg MCHC 33.8 (31.0-36.0) g/dl RDW 12.9 (11.0-16.0) % Plt Count 188 D (160-400) X10*3/uL MPV 10.1 (9.4-12.4) fL Immature Gran % (Auto) 0.3 (0.0-0.4) % Neut % (Auto) 54.9 (45-73) % Lymph % (Auto) 30.5 (20-40) % Lyon % (Auto) 11.1 H (2-11) % Eos % (Auto) 2.8 (0-4) % Baso % (Auto) 0.4 (0-2) % Lymph # (Auto) 2.0 (1.2-4.9) X10*3/uL Lyon # (Auto) 0.7 (0.1-1.2) X10*3/uL Eos # (Auto) 0.2 (0.0-0.4) X10*3/uL Baso # (Auto) 0.0 (0.0-0.2) X10*3/uL Abs Immat Gran (auto) 0.02 (0.00-0.03) X10*3/uL Absolute Neuts (auto) 3.7 (2.0-8.3) x10*3/uL Absolute Nucleated RBC 0.000 (0.0-0.012) X10*3/uL Nucleated RBC % (auto) 0.0 (0.0-0.2) /100WBC ESR 13 (0-15) MM/HR Sodium 141 (135-145) mmol/L Potassium 3.7 (3.3-5.1) mmol/L Chloride 106 (96-108) mmol/L Carbon Dioxide 27 (22-29) mmol/L Anion Gap 12 (12-20) BUN 14 (9-16) mg/dL Creatinine 0.91 (0.5-1.4) mg/dL Estim Creat Clear Calc 96.0 Estimated GFR > 60 Random Glucose 87 (60-115) mg/dL Calcium 9.1 (8.4-10.2) mg/dL Total Bilirubin 0.4 (0.0-1.0) mg/dL AST 23 (5-37) U/L ALT 30 (0-40) U/L Alkaline Phosphatase 84 (39-117) U/L C-Reactive Protein 1.09 H (< or = 0.50) mg/dL Total Protein 7.1 (6.5-8.0) g/dL Albumin 4.3 (3.5-5.0) g/dL Independent Interpretation I performed an independent interpretation of an: Plain X-Ray and Ultrasound Interpretation: My interpretation is in agreement with the radiologist's impression of these imaging studies. L EXAMINATION: US TRIPLEX LOWER EXTREMITY, BILATERAL CLINICAL INFORMATION: Bilateral lower extremity edema and pain. COMPARISON: None available. TECHNIQUE: Color-flow triplex imaging with spectral analysis and compression Doppler were performed on the bilateral lower extremities. FINDINGS: Respiratory variation, normal compression and augmented flow are noted throughout the bilateral lower extremities. The visualized common femoral vein, superficial femoral vein, profunda femoral vein, popliteal vein and midcalf peroneal and posterior tibial venous segments show no evidence of deep venous thrombosis bilaterally. There is no Mata's cyst. US/US venous duplex LE BI IMPRESSION: No evidence of deep venous thrombosis involving the bilateral lower extremities. Electronically signed by: Alexandro Blandon MD 02/16/2025 03:00 PM EDT RP Dictated By: Alexandro Blandon MD Signed By: Electronically signed by Alexandro Blandon MD 02/16/25 1500 Exam: 2 view x-ray bilateral tibia and fibula. INDICATION: Leg swelling. Prior: None TECHNIQUE: AP and lateral views lower extremity, tibia and fibula FINDINGS: Right: No erosions or lytic lesions are seen. No periosteal abnormality is evident. The ankle joints are grossly unremarkable. Left: No erosions or lytic lesions are seen. No periosteal abnormality is evident. The ankle joints are grossly unremarkable. XR/XR Tibia Fibula Marty 2V Impression: Unremarkable bilateral lower legs. Electronically signed by: Keegan Zhang MD 02/16/2025 01:44 PM EDT RP Dictated By: Keegan Zhang MD Signed By: Electronically signed by Keegan Zhang MD 02/16/25 1344 Radiology Impression Discussion of test interpretation with radiology: I have reviewed the radiologist's reading. Prescription Management I considered prescription management with: Antibiotic (Patient prescribed an antibiotic for right lower leg cellulitis) Discharge Plan Discharge Clinical Impression: Cellulitis, Venous stasis Patient Disposition: Home, Self-Care Instructions: Cellulitis (ED), Venous Insufficiency (DC) Additional Instructions: Your work up today was reassuring that there is no fracture / break or blood clot in your lower extremities. However, your right lower leg does have evidence of cellulitis (an infection). Both of your legs have evidence of venous stasis (poor blood flow). This should be followed up on by your primary care provider. Los estudios de hoy confirmaron que no hay fractura ni co?gulo de ivan en las extremidades inferiores. Sin embargo, la parte inferior de la pierna derecha presenta signos de celulitis (jacob infecci?n). Ambas piernas presentan signos de estasis venosa (flujo sangu?romeo deficiente). Braswell m?dico de cabecera debe realizarle seguimiento. Take your antibiotic as prescribed. Chamita braswell antibi?jorge seg?n lo prescrito. IF you are prescribed home medications and/or you are taking over the counter medications at home- it is very important you continue to do so as prescribed / directed unless told otherwise. SI le recetan medicamentos y/o est? tomando medicamentos de venta phil, es muy importante que contin?e haci?ndolo seg?n lo recetado/indicado a menos que le indiquen lo contrario. Follow up with your primary care provider. Return to the emergency department immediately if your symptoms worsen or if you develop any dizziness, shortness of breath, difficulty breathing, chest pain, blurry vision, loss of vision, nausea, vomiting, abdominal pain, fever, chills, back pain, or any other complaints. Cecilia?seguimiento?con braswell m?dico de atenci?n primaria. Acuda inmediatamente al servicio de urgencias si manny s?ntomas empeoran o si presenta falta de aliento, dificultad para respirar, dolor tor?cico, mareos, aturdimiento, dolor de espalda, dolor abdominal, fiebre, escalofr?os o cualquier otro s?ntoma. Please see the information below about our Patient Portal. If you are not yet enrolled in the [facility] Patient Portal, you will receive an enrollment email invitation following your visit to any [facility] setting. You may also self-enroll in the Patient Portal by visiting our website: [email or web address] The following information is required to access the Patient Portal: - Your [facility] Medical Record Number - Your personal home email address (must match what is in your electronic medical record, Registration staff can assist with this) - Name - Date of Capabilities of the Patient Portal: - Message some providers - View upcoming appointments - Access your health summary, medical history, and visit history - View current conditions and allergies - View procedure and lab results - View your medications, including guidelines, side effects, and precautions - Complete pre-appointment questionnaires requested by your provider - Ready summary reports of your office visits and procedures To access the Patient Portal Mobile Willa, follow these directions: - Search Choister in the Willa Store or [email or web address] Store - Download the Willa - Search for [facility] - Enter your login/password Portal del paciente Si usted no esta inscrito en el portal de pacientes de [facility], recibira jacob invitacion de inscripcion despues de braswell visita al [facility] o al [facility] via correo electronico. Tambien puede inscribirse voluntariamente en el portal de pacientes visitando nuestra pagina web: [email or web address] La siguiente informacion sera requerida para acceder al portal: - Braswell simone de historia medica de [facility] - Braswell direccion de correo electronico personal - Nombre - Fecha de nacimiento Capacidades: Las siguientes capacidades estan disponibles en el portal de pacientes: - Enviar mensajes a algunos doctores - Verificar proximas citas - Acceso a braswell historial de jimi, registro medico e historial de visitas - Melissa las condiciones actuales y alergias melissa procedimientos y resultados del laboratorio - Melissa manny medicamentos, incluyendo las pautas - Efectos secundarios y precauciones - Completar o llenar formularios / cuestionarios de - Citas solicitadas por braswell doctor - Leer los resumenes de reportes medicos de manny visitas y procedimientos [place] acceder a la aplicacion movil: - [facility] en la Willa Store o Google Play Store - Descargue la aplicacion - [facility] - Ingrese braswell nombre de usuario / Contrasena Prescriptions: New cephalexin 500 mg capsule 500 mg PO Q6H 7 Days Qty: 28 0RF No Action albuterol sulfate 90 mcg/actuation HFA aerosol inhaler 2 puff inhalation Q4-6H PRN (Reason: shortness of breath or wheezing) Qty: 6.7 0RF pantoprazole 20 mg tablet,delayed release (DR/EC) 20 mg PO DAILY cholecalciferol (vitamin D3) 50 mcg (2,000 unit) capsule 50 mcg PO DAILY Arnuity Ellipta 100 mcg/actuation blister with device 1 inh inhalation DAILY polyethylene glycol 3350 [Miralax] 17 gram/dose powder 238 g PO ONCE Qty: 238 0RF Rx Instructions: mix in 64 oz of gatorade the evening before the colonoscopy betamethasone valerate 0.1 % ointment 1 appl topical DAILY tramadol 50 mg tablet 50 mg PO TID PRN (Reason: Pain) (DME) blood pressure test kit-large Kit See Rx Instructions .ROUTE DAILY Qty: 1 Rx Instructions: As directed cetirizine 10 mg tablet 10 mg PO DAILY tizanidine 2 mg tablet 2 mg PO BID PRN (Reason: muscle spasm) Referrals: Marleen Jovel MD [Primary Care Provider, Medical] Interventions: ED Discharge Assessment Last Done: 02/16/25 16:31 Discharge Date/Time: 02/16/25 16:31 Print Language: Italian
[2025-02-16 13:18] LABS: MANUAL DIFF FLAG NO
[2025-02-16 13:20] LABS: Hematocrit 43.2 % (42.0-52.0); Hemoglobin 14.6 g/dl (14.0-18.0); Imm Gran Abs Auto 0.02 X10*3/uL (0.00-0.03); Imm Gran Pct Auto 0.3 % (0.0-0.4); Lymphocytes Absolute Auto 2.0 X10*3/uL (1.2-4.9); Mean Corpuscular HGB Conc 33.8 g/dl (31.0-36.0); Mean Corpuscular Hemoglobin 32.2 pg (27.0-33.0); Mean Corpuscular Volume 95.4 fL (80.0-98.0); NRBC Abs Auto 0.000 X10*3/uL (0.0-0.012); NRBC Pct Auto 0.0 /100WBC (0.0-0.2); Platelet Count 188 X10*3/uL (160-400); Red Blood Count 4.53 X10*6/uL (4.60-5.80); White Blood Count 6.7 X10*3/uL (4.8-10.8)
[2025-02-16 13:34] LABS: Alanine Aminotransferase 30 U/L (0-40); Albumin Level 4.3 g/dL (3.5-5.0); Alkaline Phosphatase 84 U/L (39-117); Anion Gap 12 (12-20); Aspartate Amino Transferase 23 U/L (5-37); Blood Urea Nitrogen 14 mg/dL (9-16); Calcium 9.1 mg/dL (8.4-10.2); Carbon Dioxide 27 mmol/L (22-29); Chloride 106 mmol/L (96-108); Creatinine Clr Calc Pharmacy 96.0; Estimated Glomerular Filt Rate > 60; Potassium 3.7 mmol/L (3.3-5.1); Sodium 141 mmol/L (135-145); Total Protein 7.1 g/dL (6.5-8.0)
[2025-02-16 16:31] VITALS: BP 124/87; PULSE 62; RESP 16; TEMP 36.8; O2SAT 98
--- OUTSIDE RECORDS SUMMARY | 2025-02-16 16:40 | XMS_ITS | Encounter Summary ---
Author Organization [employer] Address [address] [place] [address] Care Team Providers Care Office Director Name Role Phone Marleen Jovel MD Primary Care Provider [phone] Reason for Visit * Reason Onset Date Comments ER Expect 02/16/2025 Encounter Details Date Type Department Care Team ([facility] st Contact Info) Description 02/16/2025 Telephone [facility] [address] [place] [address] Kimmy Ndiaye RN [address] [place], [place] [phone] ER Expect Social History Tobacco Use Types Packs/Day Years [...] encounter Miscellaneous Notes * Telephone Encounter - Kimmy Ndiaye RN - 02/16/2025 11:07 AM EDT ED expect called into [facility] ED. Spoke with JONATHAN Ponce. Informed of bilateral lowerextremity cellulitis with right leg more swollen than left. Recommend to r/o DVT with venous doppler. Informed of dyspnea on exertion possibly related to asthma. Informed pt has all paperwork and is making his way over there by private vehicle. Kris verbalized understanding. documented in this encounter Plan of Treatment Not on file documented as of this encounter Visit Diagnoses Not on filedocumented in this encounter Additional Health Concerns Assessment Noted Time PHQ-9 Depression Total Score: 0 10/28/19 24 9:20 AM EDT documented as of this encounter Care Teams Office Director Relationship Specialty Start Date End Date Marleen Jovel MD [address] [place] [id number] PCP - General Family Medicine 10/28/23 documented as of this encounter
--- OUTSIDE RECORDS SUMMARY | 2025-02-16 16:40 | XMS_ITS | Encounter Summary ---
Author Organization [employer] Address [address] [place] [address] Care Team Providers Care Choir Accompanist Name Role Phone Marleen Jovel MD Primary Care Provider [phone] Encounter Details Date Type Department Care Team (Late st Contact Info) Description 10/05/2024 Orders Only [facility] [address] [place] [address] Provider, MD Wang Social History Tobacco Use [...] documented as of this encounter Care Teams Choir Accompanist Relationship Specialty Start Date End Date Marleen Jovel MD [address] [place] [address] PCP - General Family Medicine 10/28/23 documented as of this encounter
--- OUTSIDE RECORDS SUMMARY | 2025-02-16 16:40 | XMS_ITS | Encounter Summary ---
Author Organization [employer] Address [address] [place] [address] Care Team Providers Care Performance Specialist Name Role Phone Marleen Jovel MD Primary Care Provider [phone] Reason for Visit * Reason Comments Med Refill Encounter Details Date Type Department Care Team ([facility] st Contact Info) Description 07/31/2024 Refill [facility] [address] [place], [place] [phone] Marleen Jovel MD [address] [place] [address] Social History Tobacco Use Types Packs/Day Years [...] documented as of this encounter Care Teams Performance Specialist Relationship Specialty Start Date End Date Marleen Jovel MD [address] [place] [id number] PCP - General Family Medicine 10/28/23 documented as of this encounter
--- OUTSIDE RECORDS SUMMARY | 2025-02-16 16:40 | XMS_ITS | Encounter Summary ---
Author Organization [employer] Address [address] [place] [address] Care Team Providers Care Warehouse Assistant Name Role Phone Marleen Jovel MD Primary Care Provider [phone] Encounter Details Date Type Department Care Team (Latest Contact Info) Description 02/12/2025 Results Follow-Up [facility] [address] [place] [address] [phone] Tru Lomeli MD [address] [place] [address] Comprehensive Metabolic Panel, B Type Natriuretic Peptide (BNP), CBC auto differential Social History Tobacco Use Types Packs/Day Years [...] documented as of this encounter Care Teams Warehouse Assistant Relationship Specialty Start Date End Date Marleen Jovel MD [address] [place] [id number] PCP - General Family Medicine 10/28/23 documented as of this encounter
--- OUTSIDE RECORDS SUMMARY | 2025-02-16 16:40 | XMS_ITS | Encounter Summary ---
Author Organization [employer] Address [address] [facility] [address] [place] [address] Care Team Providers Care Ostomy Nurse Name Role Phone Marleen Jovel MD Primary Care Provider [phone] Reason for Visit * Reason Onset Date Comments Nurse Triage 02/16/2025 Encounter Details Date Type Department Care Team ([facility] st Contact Info) Description 02/16/2025 Telephone [facility] [address] [place] [address] Kimmy Ndiaye RN [address] [place], [place] [phone] Nurse Triage Social History Tobacco Use Types Packs/Day Years [...] Encounter - Kimmy Ndiaye RN - 02/16/2025 9:30 AM EDT Assessment: Patient presented to [facility] and was triaged and sent to [facility]. Presents to Walk- In Center as directed c/o SOB and right leg erythema, swelling, and itching x4 days. Rapid triage completed. Pt reports Hx of asthma and that SOB is worsened with exertion. Reports legswelling and red area has been spreading. Pt denies it being hot to the touch. Located on right medial calf, red, shiny, and blanches when pressure is applied. Pt's SpO2 is currently 96% on room air resting in chair. He is not in acute distress. Denies taking medication for Sx. Allergies[1] Current Medications[2] Patient Active Problem List Diagnosis Date Noted [...] intermittent 09/10/2022 Low back pain, unspecified 08/06/2022 Plan of care: Hand off given to [place] on pt's status. Pt currently in waiting room. Was advised to notify [facility] if any change in condition. Kimmy Ndiaye RN [1] No Known Allergies [2] Current Outpatient Medications Medication Sig Dispense Refill albuterol 108 (90 Base) MCG/ACT inhaler Inhale 2 puffs every 4 (four) hours if needed for wheezing or shortness of breath. 18 g 2 amLODIPine (Norvasc) 5 MG tablet TAKE 1 TABLET (5 MG) BY MOUTH ONCE PER DAY. 90 tablet 1 betamethasone valerate (Valisone) 0.1 % ointment Apply topically if needed in the morning and at bedtime (dryness). 45 g 0 Blood Pressure kit 1 Units Once per day. 1 kit 0 cetirizine (ZyrTEC) 10 MG tablet Take 1 tablet (10 mg) by mouth Once per day. (Patient not taking: Reported on 09/16/2024) 90 tablet 1 cetirizine (ZyrTEC) 10 MG tablet Take 1 tablet (10 mg) by mouth Once per day. 30 tablet 11 cholecalciferol (Vitamin D-3) 50 MCG (2000 UT) capsule Take 1 capsule (50 mcg) by mouth Once per day. (Patient not taking: Reported on 09/16/2024) 120 capsule 3 fluticasone furoate (Arnuity Ellipta) 100 MCG/ACT inhaler Inhale 1 puff Once per day. Rinse mouth with water after use to reduce aftertaste and incidence of candidiasis. Do not swallow. 1 each 11 furosemide (Lasix) 20 MG tablet Take 1 tablet (20 mg) by mouth Once per day for 7 days. 7 tablet 0 Ketotifen Fumarate 0.035 % solution Administer 1 drop into affected eye(s) 2 times daily. 10 mL 0 tamsulosin (Flomax) 0.4 MG 24 hr capsule Take 1 capsule (0.4 mg) by mouth Once per day. (Patient not taking: Reported on 09/16/2024) 30 capsule 2 tiZANidine (Zanaflex) 2 MG capsule Take 1 capsule (2 mg) by mouth every 8 (eight) hours if needed for muscle spasms. 90 capsule 1 No current facility-administered medications for this visit. documented in this encounter Plan of Treatment Not on file documented as of this encounter Visit Diagnoses Not on filedocumented in this encounter Additional Health Concerns Assessment Noted Time PHQ-9 Depression Total Score: 0 10/28/19 9:20 AM EDT documented as of this encounter Care Teams Ostomy Nurse Relationship Specialty Start Date End Date Marleen Jovel MD [address] [place] [address] PCP - General Family Medicine 10/28/23 documented as of this encounter
--- OUTSIDE RECORDS SUMMARY | 2025-02-16 16:40 | XMS_ITS | Encounter Summary ---
Author Organization [employer] Address [address] [facility] [address] [place] [address] Care Team Providers Care Aircraft Line Assembler Name Role Phone Marleen Jovel MD Primary Care Provider [phone] Encounter Details Date Type Department Care Team (Late st Contact Info) Description 02/12/2025 Orders Only GENERIC EXTERNAL DATA DEPARTMENT Provider, [...] Name Priority Date/Time Associated Diagnosis Comments PSA, TOTAL Routine 02/12/2025 10:08 AM EDT documented in this encounter Results * (ABNORMAL) PSA,Total (02/12/2025 10:08 AM EDT) Prostate Specific Antigen 5.41(H) <0.05 - 4.0 ng/mL [facility] Comment:PSA methodology: Stas Jackson i ChemiluminescentMicroparticle Immunoassay (CMIA) 02/12/2025 10:0 8 AM EDT 02/12/2025 11:51 AM EDT us Generic External Data Provider LAB BLOOD ORDERAB LES Final Result [facility] [address] [place] [phone] documented in this encounter Visit Diagnoses Not on filedocumented in this encounter Additional Health Concerns Assessment Noted Time PHQ-9 Depression Total Score: 0 10/28/19 24 9:20 AM EDT documented as of this encounter Care Teams Aircraft Line Assembler Relationship Specialty Start Date End Date Marleen Jovel MD [address] [place] [address] PCP - General Family Medicine 10/28/23 documented as of this encounter
--- OUTSIDE RECORDS SUMMARY | 2025-02-16 16:40 | XMS_ITS | Encounter Summary ---
Author Organization [employer] Address [address] [facility] [address] [place] [address] Care Team Providers Care Button Tacker Name Role Phone Marleen Jovel MD Primary Care Provider [phone] Encounter Details Date Type Department Care Team (Late st Contact Info) Description 02/16/2025 Orders Only GENERIC EXTERNAL DATA DEPARTMENT Provider, [...] Procedure Name Priority Date/Time Associated Diagnosis Comments VASC US LOWER EXTREMITY VENOUS DUPLEX BILATERAL Routine 02/16/2025 2:33 PM EDT CBC WITH AUTO DIFFERENTIAL Routine 02/16/2025 1:14 PM EDT SED RATE BY MODIFIED WESTERGREN Routine 02/16/2025 1:14 PM EDT C-REACTIVE PROTEIN Routine 02/16/2025 1: 14 PM EDT COMPREHENSIVE METABOLIC PANEL Routine 02/16/2025 1:14 PM EDT XR TIBIA FIBULA 2 VW BILATERAL Routine 02/16/2025 12:35 PM EDT documented in this encounter Results * VASC US Lower Extremity Venous Duplex Bilateral (02/16/2025 2:33 PM EDT) 02/16/2025 2:33 PM EDT Narrative [facility] - 02/16/2025 3:02 PM EDT [address] [address] Ultrasound Report Signed Patient: Howard Junior MR#: [id number] : 1965 Acct:[id number] Age/Sex: 59 / M ADM Date: 02/16/25 Loc: .ED Attending Dr: Ordering Physician: Fredy Villalobos Date of Service: 02/16/25 Procedure(s): US venous duplex LE Accession Number(s): [id number] cc: Fredy Villalobos; Marleen Jovel MD EXAMINATION: US TRIPLEX LOWER EXTREMITY, BILATERAL CLINICAL INFORMATION: Bilateral lower extremity edema and pain. COMPARISON: None available. TECHNIQUE: Color-flow triplex imaging with spectral analysis and compression Doppler were performed on the bilateral lower extremities. FINDINGS: Respiratory variation, normal compression and augmented flow are noted throughout the bilateral lower extremities. The visualized common femoral vein, superficial femoral vein, profunda femoral vein, popliteal vein and midcalf peroneal and posterior tibial venous segments show no evidence of deep venous thrombosis bilaterally. There is no Mata's cyst. US/US venous duplex LE BI IMPRESSION: No evidence of deep venous thrombosis involving the bilateral lower extremities. Electronically signed by: Alexandro Blandon MD 02/16/2025 03:00 PM EDT RP Dictated By: Alexandro Blandon MD Signed By: <Electronically signed by Alexandro Blandon MD in OV> 02/16/25 1500 DD/ 1433 TD/TT: 02/16/25 1447 Care Attendant: Procedure Note Donotuseinterpreter, Image - 02/16/2025 [place] [address] Ultrasound Report Signed Patient: Howard JuniorMR#: [id number] : 1965Acct:[id number] Age/Sex: 59 / MADM Date: 02/16/25 Loc: .ED Attending Dr: Ordering Physician: Fredy Villalobos Date of Service: 02/16/25 Procedure(s): US venous duplex LE BI Accession Number(s): [id number] cc: Fredy Villalobos; Marleen Jovel MD EXAMINATION: US TRIPLEX LOWER EXTREMITY, BILATERAL CLINICAL INFORMATION: Bilateral lower extremity edema and pain. COMPARISON: None available. TECHNIQUE: Color-flow triplex imaging with spectral analysis and compression Doppler were performed on the bilateral lower extremities. FINDINGS: Respiratory variation, normal compression and augmented flow are noted throughout the bilateral lower extremities. The visualized common femoral vein, superficial femoral vein, profunda femoral vein, popliteal vein and midcalf peroneal and posterior tibial venous segments show no evidence of deep venous thrombosis bilaterally. There is no Mata's cyst. US/US venous duplex LE BI IMPRESSION: No evidence of deep venous thrombosis involving the bilateral lower extremities. Electronically signed by: Alexandro Blandon MD 02/16/2025 03:00 PM EDT Dictated By: Alexandro Blandon MD Signed By: <Electronically signed by Alexandro Blandon MD in OV> 02/16/25 1500 DD/ 1433 TD/TT: 02/16/25 1447 Care Attendant: [facility] External Provider CV VASC ULAR PROCEDURES Final Result Performing Organization Address [facility] Co de Phone Number [facility] [address] [place] [phone] * Sed Rate by Modified Aaron (02/16/2025 1:14 PM EDT) Erythrocyte Sedimentation Rate 13 0 - 15 MM/HR [facility] Comment:Patients with polycy themia and many hemoglobin abnormalitiesmay have depressed sed rates whereas patients with anemiamay have elevated sed rates. 02/16/2025 1:14 PM EDT 02/16/2025 1:16 PM EDT Generic External Data Provider LAB BLOOD ORDERAB LES Final Result Performing Organization Address [facility] Co de Phone Number [facility] [address] [place] [phone] * (ABNORMAL) C-reactive Protein (02/16/2025 1:14 PM EDT) C Reactive Protein 1.09(H) < or = 0.50 mg/dL [facility] 02/16/2025 1:14 PM EDT 02/16/2025 1:16 PM EDT Generic External Data Provider LAB BLOOD ORDERAB LES Final Result Performing Organization Address [facility] Co de Phone Number [facility] [address] [place] [phone] * Comprehensive Metabolic Panel (02/16/2025 1:14 PM EDT) Sodium 141 135 - 145 mmol/L [facility] Potassium 3.7 3.3 - 5.1 mmol/L [facility] Chloride 106 96 - 108 mmol/L [facility] Carbon Dioxide 27 22 - 29 mmol/L [facility] Anion Gap 12 12 - 20 [facility] Urea Nitrogen (BUN) 14 9 - 16 mg/dL [facility] Creatinine, Serum 0.91 0.5 - 1.4 mg/dL [facility] Creatinine Clr Calc Pharmacy 96.0 [facility] Comment:eGFR (calculated fro m the MDRD study equation) and eCrCl(calculated from the Cockcroft-Gault equation) are based ondifferent parameters and may not yield comparable results.If eCrCl result is absurd, please check patient'sheight/weight. Estimated Glomerular Filt Rate >60 [facility] Comment:Chronic Kidney Disea se: Estimated GFR < 60 mL/min/1.94m7Okzltg Kidney Disease: Estimated GFR < 15 mL/min/1.73m2 Glucose 87 60 - 115 mg/dL [facility] Calcium 9.1 8.4 - 10.2 mg/dL [facility] Bilirubin, Total 0.4 0.0 - 1.0 mg/dL [facility] Aspartate Amino Transferase 23 5 - 37 U/L [facility] Alanine Aminotransferase 30 0 - 40 U/L [facility] Total Protein 7.1 6.5 - 8.0 g/dL [facility] Albumin Level 4.3 3.5 - 5.0 g/dL [facility] Alkaline Phosphatase 84 39 - 117 U/L [facility] 02/16/2025 1:14 PM EDT 02/16/2025 1:16 PM EDT us Generic External Data Provider LAB BLOOD ORDERAB LES Final Result [facility] [address] [place] [phone] * (ABNORMAL) CBC auto differential (02/16/2025 1:14 PM EDT) White Blood Count 6.7 4.8 - 10.8 X10*3/uL [facility] Red Blood Count 4.53(L) 4.60 - 5.80 X10*6/uL [facility] Hemoglobin 14.6 14.0 - 18.0 g/dl [facility] Hematocrit 43.2 42.0 - 52.0 % [facility] Mean Corpuscular Volume 95.4 80.0 - 98.0 fL [facility] Mean Corpuscular Hemoglobin 32.2 27.0 - 33.0 pg [facility] Mean Corpuscular HGB Conc 33.8 31.0 - 36.0 g/dl [facility] Red Cell Distribution Width 12.9 11.0 - 16.0 % [facility] Platelet Count 188 160 - 400 X10*3/uL [facility] Mean Platelet Volume 10.1 9.4 - 12.4 fL [facility] Neutrophils Percent Auto 54.9 45 - 73 % [facility] Imm Gran Pct Auto 0.3 0.0 - 0.4 % [facility] Lymphocytes Percent Auto 30.5 20 - 40 % [facility] Monocytes Percent Auto 11.1(H) 2 - 11 % [facility] Eosinophils Percent Auto 2.8 0 - 4 % [facility] Basophils Percent Auto 0.4 0 - 2 % [facility] NRBC Pct Auto 0.0 0.0 - 0.2 /100WBC [facility] Neutrophils Absolute Auto 3.7 2.0 - 8.3 x10*3/uL [facility] Imm Gran Abs Auto 0.02 0.00 - 0.03 X10*3/uL [facility] Lymphocytes Absolute Auto 2.0 1.2 - 4.9 X10*3/uL [facility] Monocytes Absolute Auto 0.7 0.1 - 1.2 X10*3/uL [facility] Eosinophils Absolute Auto 0.2 0.0 - 0.4 X10*3/uL [facility] Basophils Absolute Auto 0.0 0.0 - 0.2 X10*3/uL [facility] NRBC Abs Auto 0.000 0.0 - 0.012 X10*3/uL [facility] 02/16/2025 1:14 PM EDT 02/16/2025 1:16 PM EDT us Generic External Data Provider LAB BLOOD ORDERAB LES Final Result Performing Organization Address City/State/[facility] Co de Phone Number [facility] [address] [place] [phone] * XR TIBIA FIBULA 2 VW BILATERAL (02/16/2025 12:35 PM EDT) Anatomical Region Laterality Modality Radiographic Vernell ging 02/16/2025 12:3 5 PM EDT Narrative 02/16/2025 1:46 PM EDT [address] [address] XRay Report Signed Patient: Howard Junior MR#: [id number] : 1965 Acct:[id number] Age/Sex: 59 / M ADM Date: 02/16/25 Loc: .ED Attending Dr: Ordering Physician: Fredy Villalobos Date of Service: 02/16/25 Procedure(s): XR Tibia Fibula Marty 2V Accession Number(s): [id number] cc: Fredy Villalobos; Marleen Jovel MD Exam: 2 view x-ray bilateral tibia and fibula. INDICATION: Leg swelling. Prior: None TECHNIQUE: AP and lateral views lower extremity, tibia and fibula FINDINGS: Right: No erosions or lytic lesions are seen. No periosteal abnormality is evident. The ankle joints are grossly unremarkable. Left: No erosions or lytic lesions are seen. No periosteal abnormality is evident. The ankle joints are grossly unremarkable. XR/XR Tibia Fibula Marty 2V Impression: Unremarkable bilateral lower legs. Electronically signed by: Keegan Zhang MD 02/16/2025 01:44 PM EDT RP Dictated By: Keegan Zhang MD Signed By: <Electronically signed by Keegan Zhang MD in OV> 02/16/25 1344 DD/ 1235 TD/TT: 02/16/25 1335 Care Attendant: Procedure Note Donotuseinterpreter, Image - 02/16/[address] [address] XRay Report Signed Patient: Howard JuniorMR#: [id number] : 1965Acct:[id number] Age/Sex: 59 / MADM Date: 02/16/25 Loc: .ED Attending Dr: Ordering Physician: Fredy Villalobos Date of Service: 02/16/25 Procedure(s): XR Tibia Fibula Marty 2V Accession Number(s): [id number] cc: Fredy Villalobos; Marleen Jovel MD Exam: 2 view x-ray bilateral tibia and fibula. INDICATION: Leg swelling. Prior: None TECHNIQUE: AP and lateral views lower extremity, tibia and fibula FINDINGS: Right: No erosions or lytic lesions are seen. No periosteal abnormality is evident. The ankle joints are grossly unremarkable. Left: No erosions or lytic lesions are seen. No periosteal abnormality is evident. The ankle joints are grossly unremarkable. XR/XR Tibia Fibula Marty 2V Impression: Unremarkable bilateral lower legs. Electronically signed by: Keegan Zhang MD 02/16/2025 01:44 PM EDT RP Dictated By: Keegan Zhang MD Signed By: <Electronically signed by Keegan Zhang MD in OV> 02/16/25 1344 DD/ 1235 TD/TT: 02/16/25 1335 Care Attendant: [facility] External Provider IMG XR PROCEDURES Final Result documented in this encounter Visit Diagnoses Not on filedocumented in this encounter Additional Health Concerns Assessment Noted Time PHQ-9 Depression Total Score: 0 10/28/19 9:20 AM EDT documented as of this encounter Care Teams Button Tacker Relationship Specialty Start Date End Date Marleen Jovel MD [address] [place] [address] PCP - General Family Medicine 10/28/23 documented as of this encounter
--- OUTSIDE RECORDS SUMMARY | 2025-02-16 16:41 | XMS_ITS | Clinical Summary ---
Author Organization [facility] Address [address] [place] [address] Phone Care Team Providers Care Workers Compensation Coordinator Name Role Phone Marleen Jovel MD Primary [...] mmol/L LAB CHEMISTRY METHOD 10/02/2024 6:31 PM [facility] Potassium 3.8 3.5 - 5.5 mmol/L LAB CHEMISTRY METHOD 10/02/2024 6:31 PM [facility] Chloride 109 96 - 110 mmol/L LAB CHEMISTRY METHOD 10/02/2024 6:31 PM [facility] CO2 26 21 - 32 mmol/L LAB CHEMISTRY METHOD 10/02/2024 6:31 PM [facility] Anion Gap 6 3 - 11 LAB CHEMISTRY METHOD 10/02/2024 6:31 PM [facility] Glucose 124(H) 70 - 100 mg/dL LAB CHEMISTRY METHOD 10/02/2024 6:31 PM [facility] BUN 19 5 - 25 mg/dL LAB CHEMISTRY METHOD 10/02/2024 6:31 PM [facility] Creatinine 0.89 0.70 - 1.30 mg/dL LAB CHEMISTRY METHOD 10/02/2024 6:31 PM [facility] eGFR 98 >=60 mL/min/1. 73m2 LAB CHEMISTRY METHOD 10/02/2024 6:31 PM [facility] Comment:Calculation based on the Chronic Kidney Disease Epidemiology Collaboration (CKD-EPI) equation refit without adjustment for race. BUN/Creatinine Ratio 21.3 LAB CHEMISTRY METHOD 10/02/2024 6:31 PM [facility] Calcium 9.5 8.5 - 10.5 mg/dL LAB CHEMISTRY METHOD 10/02/2024 6:31 PM [facility] AST (SGOT) 24 10 - 42 unit/L LAB CHEMISTRY METHOD 10/02/2024 6:31 PM [facility] ALT (SGPT) 43 10 - 60 unit/L LAB CHEMISTRY METHOD 10/02/2024 6:31 PM [facility] Alkaline Phosphatase 89 42 - 121 unit/L LAB CHEMISTRY METHOD 10/02/2024 6:31 PM EDT [facility] Total Protein 7.0 6.0 - 8.0 g/dL LAB CHEMISTRY METHOD 10/02/2024 6:31 PM EDT [facility] Albumin 3.6 3.2 - 5.0 g/dL LAB CHEMISTRY METHOD 10/02/2024 6:31 PM EDT [facility] Total Bilirubin 0.2 0.0 - 1.4 mg/dL LAB CHEMISTRY METHOD 10/02/2024 6:31 PM EDT [facility] Blood Venous blood specimen / Unknown Venipuncture / Unknown 10/02/2024 5:49 PM EDT 10/02/2024 6:01 PM EDT us Ronaldo Tray Galloway DO LAB BLOOD ORDERABLES Demi zoya Result [facility] [address] [place] [address], from Last 3 Months or Most Recently Relevant to Health Maintenance Insurance [facility] [employer] Care Teams Workers Compensation Coordinator Relationship Specialty Start Date End Date Marleen Jovel MD [address] [place] [address] PCP - General Family Medicine 10/02/24
--- OUTSIDE RECORDS SUMMARY | 2025-02-16 16:41 | XMS_ITS | Clinical Summary ---
Author Organization [employer] Address [address] [facility] [address] [place] [address] Care Team Providers Care Robotic Maintenance Technician Name Role Phone Marleen Jovel MD Primary Care Provider [phone] Allergies No known active allergies Medications tiZANidine (Zanaflex) 2 MG capsule Take 1 capsule (2 mg) by mouth every 8 (eight) hours if needed for muscle spasms. 90 capsule 1 Active cetirizine (ZyrTEC) 10 MG tablet Take 1 tablet (10 mg) by mouth Once per day. 90 tablet 1 Active Additional Information Patient not taking.Reported on [...] mouth Once per day. 30 capsule 2 Active Additional Information Patient not taking.Reported on 09/16/2024 amLODIPine (Norvasc) 5 MG tablet TAKE 1 TABLET (5 MG) BY MOUTH ONCE PER DAY. 90 tablet 1 Active cetirizine (ZyrTEC) 10 MG tabletIndications :Rhinosinusitis,A llergic conjunctivitis of both eyes Take 1 tablet (10 mg) by mouth Once per day. 30 tablet 11 025 2025 Active Ketotifen Fumarate 0.035 % solutionIndicatio ns:Allergic conjunctivitis of both eyes Administer 1 drop into affected eye(s) 2 times daily. 10 mL Active furosemide (Lasix) 20 MG tabletIndications :Pedal edema Take 1 tablet (20 mg) by mouth Once per day for 7 days. 7 tablet 025 2024 Active albuterol 108 (90 Base) MCG/ACT inhalerIndication s:Rhinosinusitis Inhale 2 puffs every 4 (four) hours if needed for wheezing or shortness of breath. 18 g 5 025 2025 Active fluticasone furoate (Arnuity Ellipta) 100 MCG/ACT inhalerIndication s:Rhinosinusitis Inhale 1 puff Once per day. Rinse mouth with water after use to reduce aftertaste and incidence of candidiasis. Do not swallow. 1 each 5 025 2025 Active Spacer/Aero-Holdi ng Chambers (OptiChamber Torri) misc 1 each every 4 (four) hours if needed (asthma). 1 each Active fluticasone furoate (Arnuity Ellipta) 100 MCG/ACT inhalerIndication s:Rhinosinusitis Inhale 1 puff Once per day. Rinse mouth with water after use to reduce aftertaste and incidence of candidiasis. Do not swallow. 1 each 11 025 2024 Discontinued(R eorder (will not trigger notification to Pharmacy)) albuterol 108 (90 Base) MCG/ACT inhalerIndication s:Rhinosinusitis Inhale 2 puffs every 4 (four) hours if needed for wheezing or shortness of breath. 18 g 2 025 2024 Discontinued(R eorder (will not trigger notification to Pharmacy)) Active Problems Problem Noted Date Diagnosed Date SOB (shortness of breath) 10/27/2024 Assessment & Plan (10/29/2024 11:26 AM EDT): Seen on 10/27/24 for acute SOB x 3 days with absence of URI symptoms. No wheeze on exam. O2 97% on RA. Differential includes asthma (but no wheeze), PE given LE cellulitis (no calf swelling or tenderness), congestive heart failure vs other -EKG normal -CXR normal -labs unremarkable. 10/29/24 seen today for f/u. Discussed SOB at baseline and residual S/P URI. Assessment & Plan (10/27/2024 9:27 AM EDT): [...] of lower extremity 10/27/2024 Assessment & Plan (10/29/2024 11:24 AM EDT): -Rx doxycycline to cover for possible MRSA started 10/27/24 for 10 days -F/u today 10/29/24, improving. Compare images from 10/27/24 and 10/29/24. -Discussed continuing abx as prescribed above. Assessment & Plan (10/27/2024 9:28 AM EDT): [...] referral in the system. Will send to [facility]. Please attach media from ECG done in [...] Encounters Date Type Department Care Team Description 02/16/2025 10:00 AM EDT Office Visit [facility] [address] [address] Noel Conn MD Cellulitis of right leg (Primary Dx); Cellulitis of left leg; Lower extremity edema; Dyspnea on exertion; Rhinosinusitis 02/16/2025 Orders Only GENERIC EXTERNAL DATA DEPARTMENT Provider, Generic External Data 02/16/[address] [address] Kimmy Ndiaye, BUCKLE SORTER Expect 02/16/[address] [address] Kimmy Ndiaye, RN Nurse Triage 02/12/2025 8:40 AM EDT Office Visit [facility] [address] [address] Tru Lomeli MD Pedal edema (Primary Dx) 02/12/2025 Results Follow-Up [facility] [address] [place] [address] Tru Lomeli MD Comprehensive Metabolic Panel, B Type Natriuretic Peptide (BNP), CBC auto differential 02/12/2025 Orders Only GENERIC EXTERNAL DATA DEPARTMENT Provider, Generic External Data 02/12/2025 Travel 12/28/2024 Orders Only [facility] External Provider, [facility] from Last 3 Months Immunizations Immunization Administration Dates Next Due Hep B, adult 12/18/2023,11/20/2023 Influenza Injectable Quadriv alant Preservative Free IIV4 MDCK 04/01/2018 Influenza, IIV3, injectable 05/01/2024,,04/05/2015 Zoster, Recombinant 11/26/2024,09/17/2024 Family History Medical History Relation Name Comments [...] (220 lb) 02/12/2025 8:42 AM EDT Height 170 cm (5' 6.93 ) 10/29/2024 11:10 AM EDT Body Mass Index 34.53 10/29/2024 11:10 AM EDT Plan of Treatment Health Maintenance Due Date Last Done Comments CT Colonography 1965 Colonoscopy 1965 Colorectal Cancer Screening 1965 FIT DNA/Cologuard 1965 FIT 1965 FOBT 1965 Sigmoidoscopy 1965 Disability Screening 1964 Alcohol/Substance Use Screening 1976 DTaP/Tdap/Td Vaccines [...] 10/27/2024 10/28/2023, 10/28/19 SDOH Screening 10/27/2024 10/28/2023 Influenza Vaccine (#1) 2025 , 06/01/2022, 04/01/2018, Additional history exists Tobacco Screening 02/16/2026 02/16/2025 Lipid Panel 10/27/2028 10/28/2023 HIV Screening Completed 10/28/2023 Hepatitis C Screening Completed 10/28/2023 Zoster Vaccines Completed 11/26/2024, 09/17/2024 HIB Vaccines Aged Out No longer eligi [...] DUPLEX BILATERAL Routine 02/16/2025 2:33 PM EDT SED RATE BY MODIFIED WESTERGREN Routine 02/16/2025 1:14 PM EDT C-REACTIVE PROTEIN Routine 02/16/2025 1: 14 PM EDT COMPREHENSIVE METABOLIC PANEL Routine 02/16/2025 1:14 PM EDT CBC WITH AUTO DIFFERENTIAL Routine 02/16/2025 1:14 PM EDT XR TIBIA FIBULA 2 VW BILATERAL Routine 02/16/2025 12:35 PM EDT PSA, TOTAL Routine 02/12/2025 10:08 AM EDT CBC WITH AUTO DIFFERENTIAL Routine 02/12/2025 10:08 AM EDT Pedal edema B TYPE NATRIURETIC PEPTIDE (BNP) Routine 02/12/2025 10:08 AM EDT Pedal edema COMPREHENSIVE METABOLIC PANEL Routine 02/12/2025 10:08 AM EDT Pedal edema XR CHEST 2 VIEWS Routine 02/12/2025 8:28 AM EDT Pedal edema FL ESOPHAGUS BARIUM SWALLOW Routine 12/28/2024 9:17 AM EDT HEPATITIS C AB W/REFL TO HCV RNA, [...] Recently Relevant to Health Maintenance Results * VASC US Lower Extremity Venous Duplex Bilateral (02/16/2025 2:33 PM EDT) 02/16/2025 2:33 PM EDT Narrative [facility] - 02/16/2025 3:02 PM EDT [address] [address] Ultrasound Report Signed Patient: Howard Junior MR#: [id number] : 1965 Acct:[id number] Age/Sex: 59 / M ADM Date: 02/16/25 Loc: HO.ED Attending Dr: Ordering Physician: Fredy Villalobos Date of Service: 02/16/25 Procedure(s): US venous duplex LE BI Accession Number(s): [id number] cc: Fredy Villalobos; Marleen Jovel MD EXAMINATION: [...] 02/16/25 1500 DD/ 1433 TD/TT: 02/16/25 1447 Thread Singer: Procedure Note Donotuseinterpreter, Image - 02/16/2025 [place] [address] Ultrasound Report Signed Patient: Howard JuniorMR#: [id number] : 1965Acct:[id number] Age/Sex: 59 / MADM Date: 02/16/25 Loc: HO.ED Attending Dr: Ordering Physician: Fredy Villalobos Date of Service: 02/16/25 Procedure(s): US venous duplex LE BI Accession Number(s): [id number] cc: Fredy Villalobos; Marleen Jovel MD EXAMINATION: [...] 02/16/25 1500 DD/ 1433 TD/TT: 02/16/25 1447 Thread Singer: us [facility] External Provider CV VASC ULAR PROCEDURES Final Result [facility] [address] [place] [phone] * (ABNORMAL) CBC auto differential (02/16/2025 1:14 PM EDT) Only the most recent of2 resultswithin the time period is included. White Blood Count 6.7 4.8 - 10.8 X10*3/uL [facility] Red Blood Count 4.53(L) 4.60 - 5.80 X10*6/uL [facility] Hemoglobin 14.6 14.0 - 18.0 g/dl [facility] Hematocrit 43.2 42.0 - 52.0 % [facility] Mean Corpuscular Volume 95.4 80.0 - 98.0 fL [facility] Mean Corpuscular Hemoglobin 32.2 27.0 - 33.0 pg [facility] Mean Corpuscular HGB Conc 33.8 31.0 - 36.0 g/dl [facility] Red Cell Distribution Width 12.9 11.0 - 16.0 % [facility] Platelet Count 188 160 - 400 X10*3/uL [facility] Mean Platelet Volume 10.1 9.4 - 12.4 fL [facility] Neutrophils Percent Auto 54.9 45 - 73 % [facility] Imm Gran Pct Auto 0.3 0.0 - 0.4 % [facility] Lymphocytes Percent Auto 30.5 20 - 40 % [facility] Monocytes Percent Auto 11.1(H) 2 - 11 % [facility] Eosinophils Percent Auto 2.8 0 - 4 % [facility] Basophils Percent Auto 0.4 0 - 2 % [facility] NRBC Pct Auto 0.0 0.0 - 0.2 /100WBC [facility] Neutrophils Absolute Auto 3.7 2.0 - 8.3 x10*3/uL [facility] Imm Gran Abs Auto 0.02 0.00 - 0.03 X10*3/uL [facility] Lymphocytes Absolute Auto 2.0 1.2 - 4.9 X10*3/uL [facility] Monocytes Absolute Auto 0.7 0.1 - 1.2 X10*3/uL [facility] Eosinophils Absolute Auto 0.2 0.0 - 0.4 X10*3/uL [facility] Basophils Absolute Auto 0.0 0.0 - 0.2 X10*3/uL [facility] NRBC Abs Auto 0.000 0.0 - 0.012 X10*3/uL [facility] 02/16/2025 1:14 PM EDT 02/16/2025 1:16 PM EDT us Generic External Data Provider LAB BLOOD ORDERAB LES Final Result [facility] [address] [place] [address] [phone] * Sed Rate by Modified Aaron (02/16/2025 1:14 PM EDT) Erythrocyte Sedimentation Rate 13 0 - 15 MM/HR [facility] Comment:Patients with polycy themia and many hemoglobin abnormalitiesmay have depressed sed rates whereas patients with anemiamay have elevated sed rates. 02/16/2025 1:14 PM EDT 02/16/2025 1:16 PM EDT us Generic External Data Provider LAB BLOOD ORDERAB LES Final Result Performing Organization Address City/[facility] Co de Phone Number [facility] [address] [place] [phone] * (ABNORMAL) C-reactive Protein (02/16/2025 1:14 PM EDT) C Reactive Protein 1.09(H) < or = 0.50 mg/dL [facility] 02/16/2025 1:14 PM EDT 02/16/2025 1:16 PM EDT Generic External Data Provider LAB BLOOD ORDERAB LES Final Result Performing Organization Address [facility] de Phone Number [facility] [address] [place] [phone] * Comprehensive Metabolic Panel (02/16/2025 1:14 PM EDT) Only the most recent of2 resultswithin the time period is included. Sodium 141 135 - 145 mmol/L [facility] Potassium 3.7 3.3 - 5.1 mmol/L [facility] Chloride 106 96 - 108 mmol/L [facility] Carbon Dioxide 27 22 - 29 mmol/L [facility] Anion Gap 12 12 - 20 [facility] Urea Nitrogen (BUN) 14 9 - 16 mg/dL [facility] Creatinine, Serum 0.91 0.5 - 1.4 mg/dL [facility] Creatinine Clr Calc Pharmacy 96.0 [facility] Comment:eGFR (calculated fro m the MDRD study equation) and eCrCl(calculated from the Cockcroft-Gault equation) are based ondifferent parameters and may not yield comparable results.If eCrCl result is absurd, please check patient'sheight/weight. Estimated Glomerular Filt Rate >60 [facility] Comment:Chronic Kidney Disea se: Estimated GFR < 60 mL/min/1.34e5Ymbedc Kidney Disease: Estimated GFR < 15 mL/min/1.73m2 Glucose 87 60 - 115 mg/dL [facility] Calcium 9.1 8.4 - 10.2 mg/dL [facility] Bilirubin, Total 0.4 0.0 - 1.0 mg/dL [facility] Aspartate Amino Transferase 23 5 - 37 U/L [facility] Alanine Aminotransferase 30 0 - 40 U/L [facility] Total Protein 7.1 6.5 - 8.0 g/dL [facility] Albumin Level 4.3 3.5 - 5.0 g/dL [facility] Alkaline Phosphatase 84 39 - 117 U/L [facility] 02/16/2025 1:14 PM EDT 02/16/2025 1:16 PM EDT us Generic External Data Provider LAB BLOOD ORDERAB LES Final Result Performing Organization Address City/State/[facility] Co de Phone Number [facility] [address] [place] [phone] * XR TIBIA FIBULA 2 VW BILATERAL (02/16/2025 12:35 PM EDT) Anatomical Region Laterality Modality Radiographic Vernell ging 02/16/2025 12:3 5 PM EDT Narrative 02/16/2025 1:46 PM EDT [address] [address] XRay Report Signed Patient: Howard Junior MR#: [id number] : 1965 Acct:[id number] Age/Sex: 59 / M ADM Date: 02/16/25 Loc: HO.ED Attending Dr: Ordering Physician: Fredy Villalobos Date of Service: 02/16/25 Procedure(s): XR Tibia Fibula Marty 2V Accession Number(s): [id number] cc: Fredy Villalobos; Marleen Jovel MD Exam: [...] 02/16/25 1344 DD/ 1235 TD/TT: 02/16/25 1335 Thread Singer: Procedure Note Donotuseinterpreter, Image - 02/16/2025 [place] [address] XRay Report Signed Patient: Howard Junior#: [id number] : 1965Acct:[id number] Age/Sex: 59 / MADM Date: 02/16/25 Loc: .ED Attending Dr: Ordering Physician: Fredy Villalobos Date of Service: 02/16/25 Procedure(s): XR Tibia Fibula Marty 2V Accession Number(s): [id number] cc: Fredy Villalobos; Marleen Jovel MD Exam: [...] 02/16/25 1344 DD/ 1235 TD/TT: 02/16/25 1335 Thread Singer: us [facility] External Provider IMG XR PROCEDURES Final Result * (ABNORMAL) PSA,Total (02/12/2025 10:08 AM EDT) Prostate Specific Antigen 5.41(H) <0.05 - 4.0 ng/mL [facility] Comment:PSA methodology: Stas casey Alipoppyty i ChemiluminescentMicroparticle Immunoassay (CMIA) 02/12/2025 10:0 8 AM EDT 02/12/2025 11:51 AM EDT Generic External Data Provider LAB BLOOD ORDERAB LES Final Result Performing Organization Address [facility] Co de Phone Number [facility] [address] [place] [phone] * (ABNORMAL) B Type Natriuretic Peptide (BNP) (02/12/2025 10:08 AM EDT) Pathologist [facility] B Type Natriuretic Peptide 133(H) <100 pg/mL [facility] Blood Venous blood specimen / Unknown 02/12/2025 10:08 AM EDT 02/12/2025 11:50 AM EDT Tru Lomeli MD LAB BLOOD ORDERABLES Final Resul t Performing Organization Address City/[facility]/ZIP Co de Phone Number [facility] [address] [place] [phone] [phone] * XR Chest 2 Views (02/12/2025 8:28 AM EDT) Anatomical Region Laterality Modality Chest Radiographic Vernell ging 02/12/2025 8:28 AM EDT Narrative 02/12/2025 9:26 AM EDT [address] [address] XRay Report Signed Patient: Howadr Junior MR#: [id number] : 1965 Acct:[id number] Age/Sex: 59 / M ADM Date: 02/12/25 Loc: HOMarinaHHCX Attending Dr: Tru Lomeli MD Ordering Physician: Tru Lomeli MD Date of Service: 02/12/25 Procedure(s): XR chest 2V Accession Number(s): [id number] cc: Tru Lomeli MD EXAMINATION: XR CHEST [...] Alexandro Blandon MD 02/12/2025 09:23 AM EDT Dictated By: Alexandro Blandon MD Signed By: <Electronically signed by Alexandro Blandon MD in OV> 02/12/25922 DD/ 7 TD/TT: 02/12/25914 Thread Singer: Procedure Note Donotuseinterpreter, Image - 02/12/2025 [place] [address] XRay Report Signed Patient: Howard JuniorMR#: [id number] : 1965Acct:[id number] Age/Sex: 59 / MADM Date: 02/12/25 Loc: WILFREDCX Attending Dr: Tru Lomeli MD Ordering Physician: Tru Lomeli MD Date of Service: 02/12/25 Procedure(s): XR chest 2V Accession Number(s): [id number] cc: Tru Lomeli MD EXAMINATION: XR CHEST [...] in OV> 02/12/25922 DD/ 7 TD/TT: 02/12/25914 Thread Singer: Tru Lomeli MD IMG XR PROCEDURES Final Result * FL Esophagus Barium Swallow (12/28/2024 9:17 AM EDT) Anatomical Region Laterality Modality Head, Neck Radiographic Vernell ging 12/28/2024 9:17 AM EDT Narrative 12/28/2024 10:20 AM EDT [place] [address] Fluoroscopy Report Signed Patient: Howard Junior MR#: [id number] : 1965 Acct:[id number] Age/Sex: 59 / M ADM Date: 12/28/24 Loc: HO.XRAY Attending Dr: Zonia Gongora MD Ordering Physician: Zonia Gongora MD Date of Service: 12/28/24 Procedure(s): FL barium swallow Accession Number(s): [id number] cc: Marleen Jovel MD; Zonia Gongora MD EXAMINATION: XR BARIUM SWALLOW CLINICAL INFORMATION: Dysphagia COMPARISON: None available. TECHNIQUE: Routine upright barium swallow was performed with thick barium and barium coated saltine crackers. Thin barium was administered in prone lying position. FINDINGS: On oral administration of thick barium in upright view there is laryngeal penetration without aspiration. Otherwise is normal propagation bolus from the oral cavity through the pharynx, esophagus into stomach without any evidence of obstruction, narrowing or stricture. On oral administration of barium coated saltine crackers there is normal oral mastication is normal propagation of bolus from the oral cavity through the pharynx, esophagus into stomach. On oral administration of thin barium in prone lying position there is normal passage of bolus from the oral cavity, pharynx, esophagus into stomach. No intrinsic obstruction or extrinsic compression seen. No evidence of hiatal hernia or gastroesophageal reflux in supine or decubitus lying positions. There is mild retention of barium in the valleculae which cleared with subsequent swallowing. Patient had coughing throughout the exam and from very first swallow after observing laryngeal penetration. No aspiration was seen. FLUOROSCOPY TIME: 2 minutes and 43 seconds. DOSE AREA PRODUCT: [id number] uGy-m2 (microgray-meter squared) FL/FL barium swallow IMPRESSION: Laryngeal penetration on initial swallow but not seen subsequently. No laryngeal penetration. Patient had coughing throughout the exam. The barium swallow is otherwise unremarkable. Electronically signed by: Moisés Villatoro MD 12/28/2024 10:18 AM EDT RP Dictated By: Moisés Villatoro MD Signed By: <Electronically signed by Moisés Villatoro MD in OV> 12/28/24 1018 DD/ 0917 TD/TT: 12/28/24 0951 Thread Singer: [facility] Procedure Note Donotuseinterpreter, Image - 12/28/2024 [place] [address] Fluoroscopy Report Signed Patient: Howard Junior#: [id number] : 1965Acct:[id number] Age/Sex: 59 / MADM Date: 12/28/24 Loc: HO.XRAY Attending Dr: Zonia Gongora MD Ordering Physician: Zonia Gongora MD Date of Service: 12/28/24 Procedure(s): FL barium swallow Accession Number(s): [id number] cc: Marleen Jovel MD; Zonia Gongora MD EXAMINATION: XR BARIUM SWALLOW CLINICAL INFORMATION: Dysphagia COMPARISON: None available. TECHNIQUE: Routine upright barium swallow was performed with thick barium and barium coated saltine crackers. Thin barium was administered in prone lying position. FINDINGS: On oral administration of thick barium in upright view there is laryngeal penetration without aspiration. Otherwise is normal propagation bolus from the oral cavity through the pharynx, esophagus into stomach without any evidence of obstruction, narrowing or stricture. On oral administration of barium coated saltine crackers there is normal oral mastication is normal propagation of bolus from the oral cavity through the pharynx, esophagus into stomach. On oral administration of thin barium in prone lying position there is normal passage of bolus from the oral cavity, pharynx, esophagus into stomach. No intrinsic obstruction or extrinsic compression seen. No evidence of hiatal hernia or gastroesophageal reflux in supine or decubitus lying positions. There is mild retention of barium in the valleculae which cleared with subsequent swallowing. Patient had coughing throughout the exam and from very first swallow after observing laryngeal penetration. No aspiration was seen. FLUOROSCOPY TIME: 2 minutes and 43 seconds. DOSE AREA PRODUCT: [id number] uGy-m2 (microgray-meter squared) FL/FL barium swallow IMPRESSION: Laryngeal penetration on initial swallow but not seen subsequently. No laryngeal penetration. Patient had coughing throughout the exam. The barium swallow is otherwise unremarkable. Electronically signed by: Moisés Villatoro MD 12/28/2024 10:18 AM EDT Dictated By: Moisés Villatoro MD Signed By: <Electronically signed by Moisés Villatoro MD in OV> 12/28/24 1018 DD/ 0917 TD/TT: 12/28/24 0951 Thread Singer: [facility] External Provider IMG FLU OROSCOPY PROCEDURES Final Result * Hepatitis C Antibody with Reflex to HCV, RNA, Quantitative, Real-Time PCR (10/28/2023 10:49 AM EDT) Hepatitis C Antibody Nonreactive Nonreactive [facility] Comment:Antibodies to HCV no t detected; does not exclude early acuteHCV infection. Blood Venous blood specimen / Unknown 10/28/2023 10:49 AM EDT 10/28/2023 2:07 PM EDT Marleen Jovel MD LAB BLOOD ORDERABLES Final Re sult [facility] [address] [place] [phone] * HIV-1/2 Antigen and Antibodies, Fourth Generation, with Reflexes (10/28/2023 10:49 AM EDT) HIV AB/AG Nonreactive Nonreactive [facility] Comment:HIV-1 p24 Ag and/or HIV-1/HIV-2 Ab not detected.A test result that is nonreactive does not exclude thepossibility of exposure to or infection with HIV-1 and/orHIV-2. Nonreactive results in this assay for individualswith prior exposure to HIV-1 and/or HIV-2 may be due toantigen and antibody levels that are below the limit ofdetection of this assay.The Chiral Quest HIV Ag/Ab Combo assay result andsupplemental assay results should be interpreted inconjunction with the patient's clinical presentation,history and other laboratory results. If the results areinconsistent with clinical evidence, additional testing issuggested to confirm the result. Blood Venous blood specimen / Unknown 10/28/2023 10:49 AM EDT 10/28/2023 2:07 PM EDT us Marleen Jovel MD LAB BLOOD ORDERABLES Final Re sult [facility] [address] [place] [address] [phone] * (ABNORMAL) Lipid Panel, Standard (10/28/2023 10:49 AM EDT) Triglycerides 62 <150 mg/dL [facility] Comment:Desirable Triglyceri de: less than 150 mg/dLBorderline High Triglyceride 150-199 mg/dLHigh Triglyceride: 200-499 mg/dLVery High Triglyceride: greater than or equal to 5OO mg/dL Cholesterol 174 <200 mg/dL [facility] Comment:Desirable Cholestero l: less than 200 mg/dLBorderline High Cholesterol: 200-239 mg/dLHigh Cholesterol: greater than 239 mg/dL LDL Cholesterol Calculated 107(H) <100 mg/dL [facility] Comment:Desirable LDL: less than 100 mg/dLNear Optimal/Above Optimal LDL: 110- 129 mg/dLBorderline High LDL: 130-159 mg/dLHigh LDL: 160-189 mg/dLVery High LDL: greater than or equal to 190 mg/dL HDL Cholesterol 55 >40 mg/dL [facility] Comment:Desirable HDL: great er than 40 mg/dL Note: This HDL assay may give artificially low results in patients with liver disease. Blood Venous blood specimen / Unknown 10/28/2023 10:49 AM EDT 10/28/2023 2:07 PM EDT us Marleen Jovel MD LAB BLOOD ORDERABLES Final Re sult [facility] [address] [place] [phone] from Last 3 Months or Most Recently Relevant to Health Maintenance Insurance [facility] Care Teams Robotic Maintenance Technician Relationship Specialty Start Date End Date Marleen Jovel MD [address] [place] [phone] PCP - General Family Medicine 10/28/23
--- OUTSIDE RECORDS SUMMARY | 2025-02-16 16:41 | XMS_ITS | Encounter Summary ---
Author Organization [employer] Address [address] [place] [address] Care Team Providers Care Bleach Chlorinator Name Role Phone Marleen Jovel MD Primary Care Provider [phone] Encounter Details Date Type Department Care Team (Latest Contact Info) Description 02/12/2025 Travel Social History Tobacco Use Types Packs/Day Years [...] is your housing situation today? I have machelleramiro marte 10/28/[address] you [...] documented as of this encounter Care Teams Bleach Chlorinator Relationship Specialty Start Date End Date Marleen Jovel MD [address] [place] [address] PCP - General Family Medicine 10/28/23 documented as of this encounter
== END 2025-02-16 16:31 | disposition home or self-care (01) ==
PROVIDERS: Physician Assistant; Emergency Provider Emergency Medicine Emergency Medical Services; PCP Family Medicine
DX: L03.115 Cellulitis of right lower limb (principal); L03.116 Cellulitis of left lower limb; I87.8 Other specified disorders of veins; R60.0 Localized edema; M79.605 Pain in left leg; M79.604 Pain in right leg
CPT/HCPCS: 36415; 73590; 80053; 85025; 85652; 86140; 93970; 99282; 99284

== ENCOUNTER → 2025-02-16 12:48 | Outpatient (BNV) | payer OTHER, SELFPAY | PROVIDERS: PCP Family Medicine; Visit Provider Radiology Diagnostic Radiology | DX: M79.661 Pain in right lower leg (principal); M79.662 Pain in left lower leg; R22.43 Localized swelling, mass and lump, lower limb, bilateral | CPT/HCPCS: 73590; 93970 ==

== ENCOUNTER 2025-02-18 13:36 | Outpatient (AMB) | payer OTHER, SELFPAY ==
--- OUTSIDE RECORDS SUMMARY | 2025-02-16 10:00 | XMS_ITS | Encounter Summary ---
Author Organization [employer] Address [address] [facility] [address] [place] [address] Care Team Providers Care Optical Model Maker And Tester Name Role Phone Marleen Jovel MD Primary Care Provider [phone] Reason for Referral * Consultation (Routine) - Authorized Specialty Diagnoses / Procedures Referred By Contac t Referred To Contact Vascular Surgery Diagnoses Lower extremity edema Noel Conn MD [address] [place] [phone] Phone: tel: fax: [address] Phone: tel: fax: Referral ID Status Reason Start Date Expiration Date Visits Requested Visits Authorized [id number] Authorized Specialty Services Required 02/16/2025 02/16/2026 1 1 Encounter Details Date Type Department Care Team (Late st Contact Info) Description 02/16/2025 10:00 AM EDT Office Visit [facility] [address] [place] [id number] [phone] Noel Conn MD [address] [place] [phone] Cellulitis of right leg (Primary Dx); Cellulitis [...] for 3 months now. Was evaluated in [facility] in10/2024. The appearance has not changed [...] 133. PSA elevated at 5.41, followed by [facility] urology. Kirill?? returns to walk-in clinic today [...] documented as of this encounter Care Teams Optical Model Maker And Tester Relationship Specialty Start Date End Date Marleen Jovel MD [address] [place] [address] PCP - General Family Medicine 10/28/23 documented as of this encounter
--- NOTE | 2025-02-18 13:40 | MHC.OFFVIS ---
Intake Visit Reasons: PSA Follow up Intake Note: Patient is present for PSA F/U Urology Medication:NONE Antibiotic Allergy:NONE Blood Thinner:NONE TODAY'S PVR:0ML'S Sheet Layer Required: No Allergies No Known Allergies Allergy (Verified 02/18/25 14:15) Medication List - Last Reconciled 02/18/25 by DAE Canela-MARIA E albuterol sulfate 90 mcg/actuation 2 puffs inhalation Q4-6H PRN betamethasone valerate 0.1% 1 appl topical DAILY blood pressure test kit-large As directed cephalexin 500 mg PO Q6H 7 days cetirizine 10 mg PO DAILY cholecalciferol (vitamin D3) 50 mcg PO DAILY fluticasone furoate 100 mcg/actuation (Arnuity Ellipta) 1 inh inhalation DAILY pantoprazole 20 mg PO DAILY polyethylene glycol 3350 (Miralax) 238 grams PO ONCE tizanidine 2 mg PO BID PRN tramadol 50 mg PO TID PRN HPI Comments Details: Howard is a very pleasant 59-year-old Polish-speaking male patient of Dr. Jovel. He has a past medical history of arthritis, back pain, scoliosis, bronchitis, asthma, GERD, and hypertension. He presents to the office today for follow-up of his elevated PSA. In discussion with the patient today he reports to be doing and feeling well. When asked he continues to report episodes of nocturia however has been following up with PCP to obtain in-person/inpatient sleep study as most recent home sleep study recommended inpatient assessment. He otherwise denies urinary urgency, urinary frequency, incontinence, hematuria, dysuria, foul smelling urine, changes to urinary stream, flank pain, fever, and or chills. Recent PSA results reviewed with the patient today. Previous workup has included a bladder ultrasound 10/16 noting Pre void bladder volume was approximately 375 mL. Postvoid bladder volume is approximately 10 mL. The prostate measures 24 mL. We discussed at length potential causes of nocturia as well as elevated PSA. PSAs are as follows: 11/14 4.0 % free PSA 8%, 07/18 4.1 % free PSA 17%, 02/15 5.4 We discussed further treatment options of elevated PSA and risks and benefits of these treatment options. He does report a paternal family history of prostate cancer. PCPT risk calculator results reviewed with the patient today 70% chance prostate biopsy negative for prostate cancer, 23% chance low-grade prostate cancer, and 7% chance high-grade prostate cancer. All questions were answered. He otherwise offers no other issues or concerns at this time. [facility] Medical History Abnormal EKG Arthritis Back pain Scoliosis Habitual snoring Bronchitis Asthma Nocturia GERD (gastroesophageal reflux disease) HTN (hypertension) Surgical History History of umbilical hernia repair (08/17/24) History of appendectomy H/O hand surgery Hx of hernia repair Hx of release of tendon Hx of bilateral inguinal hernia repair Social History Are you a primary account executive healthcare to a significant other at home: No Do you presently have visiting nurse or other home services: No Alcohol intake: current Alcohol intake frequency: a few times a week Patient Tobacco Use Status: Never used Tobacco Office Procedures Post Void Residual Post Residual Void Post Void Residual (PVR): 0 [id number]-[id number] Void Residual by ultrasound Assessment & Plan Assessment & Plan (1) Nocturia: Code(s): R35.1 - Nocturia Category: Medical (2) Elevated PSA: Code(s): R97.20 - Elevated prostate specific antigen [PSA] Category: Medical (3) Family history of prostate cancer: Code(s): Z80.42 - Family history of malignant neoplasm of prostate Category: Medical Plan: Plan Risks and benefits regarding trans rectal ultrasound with prostate biopsy were discussed.? Options of continued surveillance, no treatment and biopsy were offered. The risks include but are not limited to, urinary tract infection, sepsis, difficulty urinating, bleeding into the rectum or bladder that requires intervention and transfusion,and failure to diagnose prostate cancer. The patient understands the options and the risks involved. They wish to proceed. Printed information was provided to ensure he remains off anticoagulation for the appropriate length of time. He may require cardiology or PCP clearance.? An antibiotic will be administered prior to, and following the procedure Plan Unable to provide urine for urinalysis as patient unable to void however PVR 0 mL Recent PSA results with the patient today; as noted above. GAY offered however deferred. PCPT risk calculator results reviewed with the patient today; as noted above. We did discussed potential causes of elevated PSA as well as further treatment options and risks and benefits of these treatment options. All questions were answered. Prescription provided for antibiotic therapy we discussed importance of taking day before procedure, day of procedure, and day after procedure. Will schedule for prostate biopsy as discussed. Follow-up per doctor's orders; or sooner with any issues, concerns, and or questions. Orders: Orders AMB Urinalysis Automated Today Z13.9 - Encounter for screening, unspecified US biopsy prostate Today R97.20 - Elevated prostate specific antigen [PSA], Z80.42 - Family history of malignant neoplasm of prostate Medications: New levofloxacin take 1 tablet day before procedure, 1 tablet day of procedure and 1 tablet day after procedure 500 mg PO DAILY 3 tabs 0RF 3 days Patient Instructions: The patient had an opportunity to ask questions regarding the treatment plan. All questions were answered. Physical exam, labs, and imaging were discussed and reviewed in detail. As well as risks, benefits, and discussion of treatment choices. No major barriers to understanding were identified. The patient expressed understanding and agreement with the above treatment plan. The patient was made aware they should contact our office by phone for worsening of their current condition, the appearance of new symptoms, or with any questions or concerns. Compliance is encouraged with any medications and follow up testing that is ordered. It is a privilege to be allowed the opportunity to participate in? your urological care.? Again, if you have any questions or concerns If you have any questions or concerns please do not hesitate to contact me. The office is [phone]. This note is constructed using voice recognition software. While every effort has been made to ensure accuracy drama professor errors may have been included. Yours sincerely, MYRIAM Canela Coding Level of Care Code Est Pt Level 4 (01488) Complex EM visit Add On G2211 Diagnoses Nocturia R35.1 Elevated PSA R97.20 Family history of prostate cancer Z80.42 CPT Codes Post Residual Void - PVR CPT Code: 60530-Dvfv Void Residual by ultrasound ([id number])
--- OUTSIDE RECORDS SUMMARY | 2025-02-18 14:21 | XMS_ITS | Clinical Summary ---
Author Organization [employer] Address [address] [place] [address] Care Team Providers Care Hatchery Laborer Name Role Phone Marleen Jovel MD Primary Care Provider [phone] Allergies No known active allergies Medications tiZANidine [...] referral in the system. Will send to [facility]. Please attach media from ECG done [...] Description 02/16/2025 10:00 AM EDT Office Visit [facility] [address] [address] Noel Conn MD Cellulitis of right leg (Primary Dx); Cellulitis of left leg; Lower extremity edema; Dyspnea on exertion; Rhinosinusitis 02/16/2025 Orders Only GENERIC EXTERNAL DATA DEPARTMENT Provider, Generic External Data 02/16/[address] [address] Kimmy Ndiaye, VERIFIER Expect 02/16/[address] [address] Kimmy Ndiaye, RN Nurse Triage 02/12/2025 8:40 AM EDT Office Visit [facility] [address] [address] Tru Lomeli MD Pedal edema (Primary Dx) 02/12/2025 Results Follow-Up [facility] [address] [place] [address] Tru Lomeli MD Comprehensive Metabolic Panel, B Type Natriuretic Peptide (BNP), CBC auto differential 02/12/2025 Orders Only GENERIC EXTERNAL DATA DEPARTMENT Provider, Generic External Data 02/12/2025 Travel 12/28/2024 Orders Only [facility] External Provider, [facility] [place] from Last 3 Months Immunizations Immunization Administration [...] PM EDT) 02/16/2025 2:33 PM EDT Narrative [facility] - 02/16/2025 3:02 PM EDT [address] [address] Ultrasound Report Signed Patient: Howard Junior MR#: [id number] : 1965 Acct:[id number] Age/Sex: 59 / M ADM Date: 02/16/25 Loc: HO.ED Attending Dr: Ordering Physician: Fredy Villalobos Date of Service: 02/16/25 Procedure(s): US venous duplex LE BI Accession Number(s): [id number] cc: Fredy Villalobos; Marleen Jovel MD EXAMINATION: [...] 02/16/25 1500 DD/ 1433 TD/TT: 02/16/25 1447 Student Services Vice President: Procedure Note Donotuseinterpreter, Image - 02/16/2025 [place] [address] Ultrasound Report Signed Patient: Howard JuniorMR#: [id number] : 1965Acct:[id number] Age/Sex: 59 / MADM Date: 02/16/25 Loc: HO.ED Attending Dr: Ordering Physician: Fredy Villalobos Date of Service: 02/16/25 Procedure(s): US venous duplex LE BI Accession Number(s): [id number] cc: Fredy Villalobos; Marleen Jovel MD EXAMINATION: [...] 02/16/25 1500 DD/ 1433 TD/TT: 02/16/25 1447 Student Services Vice President: us [facility] [place] External Provider CV VASC ULAR PROCEDURES Final Result [facility] [address] [place] [phone] * (ABNORMAL) CBC auto differential (02/16/2025 1:14 PM EDT) Only the most recent of2 resultswithin the time period is included. White Blood Count 6.7 4.8 - 10.8 X10*3/uL [facility] Red Blood Count 4.53(L) 4.60 - 5.80 X10*6/uL [facility] Hemoglobin 14.6 14.0 - 18.0 g/dl [facility] Hematocrit 43.2 42.0 - 52.0 % [facility] Mean Corpuscular Volume 95.4 80.0 - 98.0 fL [facility] Mean Corpuscular Hemoglobin 32.2 27.0 - 33.0 pg [facility] Mean Corpuscular HGB Conc 33.8 31.0 - 36.0 g/dl [facility] Red Cell Distribution Width 12.9 11.0 - 16.0 % [facility] Platelet Count 188 160 - 400 X10*3/uL [facility] Mean Platelet Volume 10.1 9.4 - 12.4 fL [facility] Neutrophils Percent Auto 54.9 45 - 73 % [facility] Imm Gran Pct Auto 0.3 0.0 - 0.4 % [facility] Lymphocytes Percent Auto 30.5 20 - 40 % [facility] Monocytes Percent Auto 11.1(H) 2 - 11 % [facility] Eosinophils Percent Auto 2.8 0 - 4 % [facility] Basophils Percent Auto 0.4 0 - 2 % [facility] NRBC Pct Auto 0.0 0.0 - 0.2 /100WBC [facility] Neutrophils Absolute Auto 3.7 2.0 - 8.3 x10*3/uL [facility] Imm Gran Abs Auto 0.02 0.00 - 0.03 X10*3/uL [facility] Lymphocytes Absolute Auto 2.0 1.2 - 4.9 X10*3/uL [facility] Monocytes Absolute Auto 0.7 0.1 - 1.2 X10*3/uL [facility] Eosinophils Absolute Auto 0.2 0.0 - 0.4 X10*3/uL [facility] Basophils Absolute Auto 0.0 0.0 - 0.2 X10*3/uL [facility] NRBC Abs Auto 0.000 0.0 - 0.012 X10*3/uL [facility] 02/16/2025 1:14 PM EDT 02/16/2025 1:16 PM EDT us Generic External Data Provider LAB BLOOD ORDERAB LES Final Result [facility] [address] [place] [phone] * Sed Rate by Modified Aaron (02/16/2025 1:14 PM EDT) Erythrocyte Sedimentation Rate 13 0 - 15 MM/HR [facility] Comment:Patients with polycy themia and many hemoglobin abnormalitiesmay have depressed sed rates whereas patients with anemiamay have elevated sed rates. 02/16/2025 1:14 PM EDT 02/16/2025 1:16 PM EDT us Generic External Data Provider LAB BLOOD ORDERAB LES Final Result Performing Organization Address City/[facility] Co de Phone Number [facility] [address] [place] [phone] * (ABNORMAL) C-reactive Protein (02/16/2025 1:14 PM EDT) C Reactive Protein 1.09(H) < or = 0.50 mg/dL [facility] 02/16/2025 1:14 PM EDT 02/16/2025 1:16 PM EDT Generic External Data Provider LAB BLOOD ORDERAB LES Final Result Performing Organization Address [facility] de Phone Number [facility] [address] [place] [phone] * Comprehensive Metabolic Panel (02/16/2025 1:14 PM EDT) Only the most recent of2 resultswithin the time period is included. Sodium 141 135 - 145 mmol/L [facility] Potassium 3.7 3.3 - 5.1 mmol/L [facility] Chloride 106 96 - 108 mmol/L [facility] Carbon Dioxide 27 22 - 29 mmol/L [facility] Anion Gap 12 12 - 20 [facility] Urea Nitrogen (BUN) 14 9 - 16 mg/dL [facility] Creatinine, Serum 0.91 0.5 - 1.4 mg/dL [facility] Creatinine Clr Calc Pharmacy 96.0 [facility] Comment:eGFR (calculated fro m the MDRD study equation) and eCrCl(calculated from the Cockcroft-Gault equation) are based ondifferent parameters and may not yield comparable results.If eCrCl result is absurd, please check patient'sheight/weight. Estimated Glomerular Filt Rate >60 [facility] Comment:Chronic Kidney Disea se: Estimated GFR < 60 mL/min/1.44y2Whrmpo Kidney Disease: Estimated GFR < 15 mL/min/1.73m2 Glucose 87 60 - 115 mg/dL [facility] Calcium 9.1 8.4 - 10.2 mg/dL [facility] Bilirubin, Total 0.4 0.0 - 1.0 mg/dL [facility] Aspartate Amino Transferase 23 5 - 37 U/L [facility] Alanine Aminotransferase 30 0 - 40 U/L [facility] Total Protein 7.1 6.5 - 8.0 g/dL [facility] Albumin Level 4.3 3.5 - 5.0 g/dL [facility] Alkaline Phosphatase 84 39 - 117 U/L [facility] 02/16/2025 1:14 PM EDT 02/16/2025 1:16 PM EDT us Generic External Data Provider LAB BLOOD ORDERAB LES Final Result Performing Organization Address City/State/[facility] Co de Phone Number [facility] [address] [place] [phone] * XR TIBIA FIBULA 2 VW BILATERAL (02/16/2025 12:35 PM EDT) Anatomical Region Laterality Modality Radiographic Vernell ging 02/16/2025 12:3 5 PM EDT Narrative 02/16/2025 1:46 PM EDT [address] [address] XRay Report Signed Patient: Howard Junior MR#: [id number] : 1965 Acct:[id number] Age/Sex: 59 / M ADM Date: 02/16/25 Loc: HO.ED Attending Dr: Ordering Physician: Fredy Villalobos Date of Service: 02/16/25 Procedure(s): XR Tibia Fibula Marty 2V Accession Number(s): [id number] cc: Fredy Villalobos; Marleen Jovel MD Exam: [...] 02/16/25 1344 DD/ 1235 TD/TT: 02/16/25 1335 Student Services Vice President: Procedure Note Donotuseinterpreter, Image - 02/16/2025 [place] [address] XRay Report Signed Patient: Howard Junior#: [id number] : 1965Acct:[id number] Age/Sex: 59 / MADM Date: 02/16/25 Loc: .ED Attending Dr: Ordering Physician: Fredy Villalobos Date of Service: 02/16/25 Procedure(s): XR Tibia Fibula Maryt 2V Accession Number(s): [id number] cc: Fredy Villalobos; Marleen Jovel MD Exam: [...] 02/16/25 1344 DD/ 1235 TD/TT: 02/16/25 1335 Student Services Vice President: us [facility] External Provider IMG XR PROCEDURES Final Result * (ABNORMAL) PSA,Total (02/12/2025 10:08 AM EDT) Prostate Specific Antigen 5.41(H) <0.05 - 4.0 ng/mL [facility] Comment:PSA methodology: Stas casey Alipoppyty i ChemiluminescentMicroparticle Immunoassay (CMIA) 02/12/2025 10:0 8 AM EDT 02/12/2025 11:51 AM EDT Generic External Data Provider LAB BLOOD ORDERAB LES Final Result Performing Organization Address [facility] Co de Phone Number [facility] [address] [place] [phone] * (ABNORMAL) B Type Natriuretic Peptide (BNP) (02/12/2025 10:08 AM EDT) Pathologist [facility] B Type Natriuretic Peptide 133(H) <100 pg/mL [facility] Blood Venous blood specimen / Unknown 02/12/2025 10:08 AM EDT 02/12/2025 11:50 AM EDT Tru Lomeli MD LAB BLOOD ORDERABLES Final Resul t Performing Organization Address City/[facility]/ZIP Co de Phone Number [facility] [address] [place] [phone] * XR Chest 2 Views (02/12/2025 8:28 AM EDT) Anatomical Region Laterality Modality Chest Radiographic Vernell ging 02/12/2025 8:28 AM EDT Narrative 02/12/2025 9:26 AM EDT [address] [address] XRay Report Signed Patient: Howard Junior MR#: [id number] : 1965 Acct:[id number] Age/Sex: 59 / M ADM Date: 02/12/25 Loc: HOMarinaHHCX Attending Dr: Tru Lomeli MD Ordering Physician: Tru Lomeli MD Date of Service: 02/12/25 Procedure(s): XR chest 2V Accession Number(s): [id number] cc: Tru Lomeli MD EXAMINATION: XR CHEST [...] in OV> 02/12/25922 DD/ 7 TD/TT: 02/12/25914 Student Services Vice President: Procedure Note Donotuseinterpreter, Image - 02/12/2025 [place] [address] XRay Report Signed Patient: Howard JuniorMR#: [id number] : 1965Acct:[id number] Age/Sex: 59 / MADM Date: 02/12/25 Loc: WILFREDCX Attending Dr: Tru Lomeli MD Ordering Physician: Tru Lomeli MD Date of Service: 02/12/25 Procedure(s): XR chest 2V Accession Number(s): [id number] cc: Tru Lomeli MD EXAMINATION: XR CHEST [...] in OV> 02/12/25922 DD/ 7 TD/TT: 02/12/25914 Student Services Vice President: Tru Lomeli MD IMG XR PROCEDURES Final Result * FL Esophagus Barium Swallow (12/28/2024 9:17 AM EDT) Anatomical Region Laterality Modality Head, Neck Radiographic Vernell ging 12/28/2024 9:17 AM EDT Narrative 12/28/2024 10:20 AM EDT [place] [address] Fluoroscopy Report Signed Patient: Howard Junior MR#: [id number] : 1965 Acct:[id number] Age/Sex: 59 / M ADM Date: 12/28/24 Loc: HO.XRAY Attending Dr: Zonia Gongora MD Ordering Physician: Zonia Gongora MD Date of Service: 12/28/24 Procedure(s): FL barium swallow Accession Number(s): [id number] cc: Marleen Jovel MD; Zonia Gongora MD [...] 12/28/24 1018 DD/ 0917 TD/TT: 12/28/24 0951 Student Services Vice President: [facility] Procedure Note Donotuseinterpreter, Image - 12/28/2024 [place] [address] Fluoroscopy Report Signed Patient: Howard Junior#: [id number] : 1965Acct:[id number] Age/Sex: 59 / MADM Date: 12/28/24 Loc: HO.XRAY Attending Dr: Zonia Gongora MD Ordering Physician: Zonia Gongora MD Date of Service: 12/28/24 Procedure(s): FL barium swallow Accession Number(s): [id number] cc: Marleen Jovel MD; Zonia Gongora MD [...] 12/28/24 1018 DD/ 0917 TD/TT: 12/28/24 0951 Student Services Vice President: [facility] External Provider IMG FLU OROSCOPY PROCEDURES Final Result * Hepatitis C Antibody with Reflex to HCV, RNA, Quantitative, Real-Time PCR (10/28/2023 10:49 AM EDT) Hepatitis C Antibody Nonreactive Nonreactive [facility] Comment:Antibodies to HCV no t detected; does not exclude early acuteHCV infection. Blood Venous blood specimen / Unknown 10/28/2023 10:49 AM EDT 10/28/2023 2:07 PM EDT Marleen Jovel MD LAB BLOOD ORDERABLES Final Re sult [facility] [address] [place] [phone] * HIV-1/2 Antigen and Antibodies, Fourth Generation, with Reflexes (10/28/2023 10:49 AM EDT) HIV AB/AG Nonreactive Nonreactive [facility] Comment:HIV-1 p24 Ag and/or HIV-1/HIV-2 Ab not detected.A test result that is nonreactive does not exclude thepossibility of exposure to or infection with HIV-1 and/orHIV-2. Nonreactive results in this assay for individualswith prior exposure to HIV-1 and/or HIV-2 may be due toantigen and antibody levels that are below the limit ofdetection of this assay.The [email or web address] HIV Ag/Ab Combo assay result andsupplemental assay results should be interpreted inconjunction with the patient's clinical presentation,history and other laboratory results. If the results areinconsistent with clinical evidence, additional testing issuggested to confirm the result. Blood Venous blood specimen / Unknown 10/28/2023 10:49 AM EDT 10/28/2023 2:07 PM EDT us Marleen Jovel MD LAB BLOOD ORDERABLES Final Re sult [facility] [address] [place] [phone] * (ABNORMAL) Lipid Panel, Standard (10/28/2023 10:49 AM EDT) Triglycerides 62 <150 mg/dL [facility] Comment:Desirable Triglyceri de: less than 150 mg/dLBorderline High Triglyceride 150-199 mg/dLHigh Triglyceride: 200-499 mg/dLVery High Triglyceride: greater than or equal to 5OO mg/dL Cholesterol 174 <200 mg/dL [facility] Comment:Desirable Cholestero l: less than 200 mg/dLBorderline High Cholesterol: 200-239 mg/dLHigh Cholesterol: greater than 239 mg/dL LDL Cholesterol Calculated 107(H) <100 mg/dL [facility] Comment:Desirable LDL: less than 100 mg/dLNear Optimal/Above Optimal LDL: 110- 129 mg/dLBorderline High LDL: 130-159 mg/dLHigh LDL: 160-189 mg/dLVery High LDL: greater than or equal to 190 mg/dL HDL Cholesterol 55 >40 mg/dL [facility] Comment:Desirable HDL: great er than 40 mg/dL Note: This HDL assay may give artificially low results in patients with liver disease. Blood Venous blood specimen / Unknown 10/28/2023 10:49 AM EDT 10/28/2023 2:07 PM EDT us Marleen Jovel MD LAB BLOOD ORDERABLES Final Re sult [facility] [address] [place] [phone] from Last 3 Months or Most Recently Relevant to Health Maintenance Insurance [facility] Care Teams Hatchery Laborer Relationship Specialty Start Date End Date Marleen Jovel MD [address] [place] [phone] PCP - General Family Medicine 10/28/23
--- OUTSIDE RECORDS SUMMARY | 2025-02-18 14:21 | XMS_ITS | Encounter Summary ---
Author Organization [employer] Address [address] [facility] [address] 7[address] [place] [address] Care Team Providers Care Cytogenetics Technologist Name Role Phone Marleen Jovel MD Primary Care Provider [phone] Encounter Details Date Type Department Care Team (Latest Contact Info) Description 02/12/2025 Results Follow-Up [facility] [address] [place] [address] [phone] Tru Lomeli MD [address] [place] [address] Comprehensive Metabolic Panel, B Type Natriuretic Peptide [...] documented as of this encounter Care Teams Cytogenetics Technologist Relationship Specialty Start Date End Date Marleen Jovel MD [address] [place] [phone] PCP - General Family Medicine 10/28/23 documented as of this encounter
--- OUTSIDE RECORDS SUMMARY | 2025-02-18 14:21 | XMS_ITS | Encounter Summary ---
Author Organization [employer] Address [address] [facility] [address] 7[address] [place] [address] Care Team Providers Care Gas Fitter Name Role Phone Marleen Jovel MD Primary Care Provider [phone] Encounter Details Date Type Department Care Team [...] PM EDT) 02/16/2025 2:33 PM EDT Narrative [facility] - 02/16/2025 3:02 PM EDT [address] [address] Ultrasound Report Signed Patient: Howard Junior MR#: [id number] : 1965 Acct:[id number] Age/Sex: 59 / M ADM Date: 02/16/25 Loc: .ED Attending Dr: Ordering Physician: Fredy Villalobos Date of Service: 02/16/25 Procedure(s): US venous duplex LE Accession Number(s): [id number] cc: Fredy Villalobos; Marleen Jovel MD EXAMINATION: [...] 02/16/25 1500 DD/ 1433 TD/TT: 02/16/25 1447 Feed Mixer: Procedure Note Donotuseinterpreter, Image - 02/16/2025 [place] [address] Ultrasound Report Signed Patient: Howard JuniorMR#: [id number] : 1965Acct:[id number] Age/Sex: 59 / MADM Date: 02/16/25 Loc: .ED Attending Dr: Ordering Physician: Fredy Villalobos Date of Service: 02/16/25 Procedure(s): US venous duplex LE BI Accession Number(s): [id number] cc: Fredy Villalobos; Marleen Jovel MD EXAMINATION: [...] 02/16/25 1500 DD/ 1433 TD/TT: 02/16/25 1447 Feed Mixer: [facility] External Provider CV VASC ULAR PROCEDURES Final Result Performing Organization Address [facility] Co de Phone Number [facility] [address] [place] [phone] * Sed Rate by Modified Aaron (02/16/2025 1:14 PM EDT) Erythrocyte Sedimentation Rate 13 0 - 15 MM/HR [facility] Comment:Patients with polycy themia and many hemoglobin abnormalitiesmay have depressed sed rates whereas patients with anemiamay have elevated sed rates. 02/16/2025 1:14 PM EDT 02/16/2025 1:16 PM EDT Generic External Data Provider LAB BLOOD ORDERAB LES Final Result Performing Organization Address [facility] Co de Phone Number [facility] [address] [place] [phone] * (ABNORMAL) C-reactive Protein (02/16/2025 1:14 PM EDT) C Reactive Protein 1.09(H) < or = 0.50 mg/dL [facility] 02/16/2025 1:14 PM EDT 02/16/2025 1:16 PM EDT Generic External Data Provider LAB BLOOD ORDERAB LES Final Result Performing Organization Address [facility] Co de Phone Number [facility] [address] [place] [address] [phone] * Comprehensive Metabolic Panel (02/16/2025 1:14 PM EDT) Sodium 141 135 - 145 mmol/L [facility] Potassium 3.7 3.3 - 5.1 mmol/L [facility] Chloride 106 96 - 108 mmol/L [facility] Carbon Dioxide 27 22 - 29 mmol/L [facility] Anion Gap 12 12 - 20 [facility] Urea Nitrogen (BUN) 14 9 - 16 mg/dL [facility] Creatinine, Serum 0.91 0.5 - 1.4 mg/dL [facility] Creatinine Clr Calc Pharmacy 96.0 [facility] Comment:eGFR (calculated fro m the MDRD study equation) and eCrCl(calculated from the Cockcroft-Gault equation) are based ondifferent parameters and may not yield comparable results.If eCrCl result is absurd, please check patient'sheight/weight. Estimated Glomerular Filt Rate >60 [facility] Comment:Chronic Kidney Disea se: Estimated GFR < 60 mL/min/1.55k3Fmvwdr Kidney Disease: Estimated GFR < 15 mL/min/1.73m2 Glucose 87 60 - 115 mg/dL [facility] Calcium 9.1 8.4 - 10.2 mg/dL [facility] Bilirubin, Total 0.4 0.0 - 1.0 mg/dL [facility] Aspartate Amino Transferase 23 5 - 37 U/L [facility] Alanine Aminotransferase 30 0 - 40 U/L [facility] Total Protein 7.1 6.5 - 8.0 g/dL [facility] Albumin Level 4.3 3.5 - 5.0 g/dL [facility] Alkaline Phosphatase 84 39 - 117 U/L [facility] 02/16/2025 1:14 PM EDT 02/16/2025 1:16 PM EDT us Generic External Data Provider LAB BLOOD ORDERAB LES Final Result [facility] [address] [place] [address] [phone] * (ABNORMAL) CBC auto differential (02/16/2025 1:14 PM EDT) White Blood Count 6.7 4.8 - 10.8 X10*3/uL [facility] Red Blood Count 4.53(L) 4.60 - 5.80 X10*6/uL [facility] Hemoglobin 14.6 14.0 - 18.0 g/dl [facility] Hematocrit 43.2 42.0 - 52.0 % [facility] Mean Corpuscular Volume 95.4 80.0 - 98.0 fL [facility] Mean Corpuscular Hemoglobin 32.2 27.0 - 33.0 pg [facility] Mean Corpuscular HGB Conc 33.8 31.0 - 36.0 g/dl [facility] Red Cell Distribution Width 12.9 11.0 - 16.0 % [facility] Platelet Count 188 160 - 400 X10*3/uL [facility] Mean Platelet Volume 10.1 9.4 - 12.4 fL [facility] Neutrophils Percent Auto 54.9 45 - 73 % [facility] Imm Gran Pct Auto 0.3 0.0 - 0.4 % [facility] Lymphocytes Percent Auto 30.5 20 - 40 % [facility] Monocytes Percent Auto 11.1(H) 2 - 11 % [facility] Eosinophils Percent Auto 2.8 0 - 4 % [facility] Basophils Percent Auto 0.4 0 - 2 % [facility] NRBC Pct Auto 0.0 0.0 - 0.2 /100WBC [facility] Neutrophils Absolute Auto 3.7 2.0 - 8.3 x10*3/uL [facility] Imm Gran Abs Auto 0.02 0.00 - 0.03 X10*3/uL [facility] Lymphocytes Absolute Auto 2.0 1.2 - 4.9 X10*3/uL [facility] Monocytes Absolute Auto 0.7 0.1 - 1.2 X10*3/uL [facility] Eosinophils Absolute Auto 0.2 0.0 - 0.4 X10*3/uL [facility] Basophils Absolute Auto 0.0 0.0 - 0.2 X10*3/uL [facility] NRBC Abs Auto 0.000 0.0 - 0.012 X10*3/uL [facility] 02/16/2025 1:14 PM EDT 02/16/2025 1:16 PM EDT us Generic External Data Provider LAB BLOOD ORDERAB LES Final Result Performing Organization Address City/State/[facility] Co de Phone Number [facility] [address] [place] [phone] * XR TIBIA FIBULA 2 VW BILATERAL (02/16/2025 12:35 PM EDT) Anatomical Region Laterality Modality Radiographic Vernell ging 02/16/2025 12:3 5 PM EDT Narrative 02/16/2025 1:46 PM EDT [address] [address] XRay Report Signed Patient: Howard Junior MR#: [id number] : 1965 Acct:[id number] Age/Sex: 59 / M ADM Date: 02/16/25 Loc: .ED Attending Dr: Ordering Physician: Fredy Villalobos Date of Service: 02/16/25 Procedure(s): XR Tibia Fibula Marty 2V Accession Number(s): [id number] cc: Fredy Villalobos; aMrleen Jovel MD Exam: 2 view x-ray bilateral [...] 02/16/25 1344 DD/ 1235 TD/TT: 02/16/25 1335 Feed Mixer: Procedure Note Donotuseinterpreter, Image - 02/16/[address] [address] XRay Report Signed Patient: Howard JuniorMR#: [id number] : 1965Acct:[id number] Age/Sex: 59 / MADM Date: 02/16/25 Loc: .ED Attending Dr: Ordering Physician: Fredy Villalobos Date of Service: 02/16/25 Procedure(s): XR Tibia Fibula Marty 2V Accession Number(s): [id number] cc: Fredy Villalobos; Marleen Jovel MD Exam: [...] 02/16/25 1344 DD/ 1235 TD/TT: 02/16/25 1335 Feed Mixer: [facility] External Provider IMG XR PROCEDURES Final Result documented in this encounter Visit Diagnoses Not on filedocumented in this encounter Additional Health Concerns Assessment Noted Time PHQ-9 Depression Total Score: 0 10/28/19 9:20 AM EDT documented as of this encounter Care Teams Gas Fitter Relationship Specialty Start Date End Date Marleen Jovel MD [address] [place] [address] PCP - General Family Medicine 10/28/23 documented as of this encounter
--- OUTSIDE RECORDS SUMMARY | 2025-02-18 14:21 | XMS_ITS | Clinical Summary ---
Author Organization [facility] Address [address] [place] [address] Phone Care Team Providers Care Medical Concierge Name Role Phone Marleen Jovel MD Primary Care Provider [phone] Allergies No known active allergies Medications No [...] 6:31 PM [facility] Potassium 3.8 3.5 - 5.5 [...] [facility] Comment:Calculation based on the Chronic Kidney Disease Epidemiology Collaboration (CKD-EPI) equation refit without adjustment for race. BUN/Creatinine Ratio 21.3 LAB CHEMISTRY METHOD 10/02/2024 6:31 PM [facility] Calcium 9.5 8.5 - 10.5 mg/dL LAB CHEMISTRY METHOD 10/02/2024 6:31 PM [facility] AST (SGOT) 24 10 - 42 unit/L LAB CHEMISTRY METHOD 10/02/2024 6:31 PM [facility] ALT (SGPT) 43 10 - 60 unit/L LAB CHEMISTRY METHOD 10/02/2024 6:31 PM [facility] Alkaline Phosphatase 89 42 - 121 unit/L LAB CHEMISTRY METHOD 10/02/2024 6:31 PM EDT [facility] Total Protein 7.0 6.0 - 8.0 g/dL LAB CHEMISTRY METHOD 10/02/2024 6:31 PM EDT [facility] Albumin 3.6 3.2 - 5.0 g/dL LAB CHEMISTRY METHOD 10/02/2024 6:31 PM EDT [facility] Total Bilirubin 0.2 0.0 - 1.4 mg/dL LAB CHEMISTRY METHOD 10/02/2024 6:31 PM EDT [facility] Blood Venous blood specimen / Unknown Venipuncture / Unknown 10/02/2024 5:49 PM EDT 10/02/2024 6:01 PM EDT us Ronaldo Tray Galloway DO LAB BLOOD ORDERABLES Demi zoya Result [facility] [address] [place] [address], from Last 3 Months or Most Recently Relevant to Health Maintenance Insurance [facility] [employer] Care Teams Medical Concierge Relationship Specialty Start Date End Date Marleen Jovel MD [address] [place] [address] PCP - General Family Medicine 10/02/24
--- OUTSIDE RECORDS SUMMARY | 2025-02-18 14:21 | XMS_ITS | Encounter Summary ---
Author Organization [employer] Address [address] [facility] 7t [place] [address] Care Team Providers Care Document Examiner Name Role Phone Marleen Jovel MD Primary Care Provider [phone] Reason for Visit * Reason Onset Date Comments Nurse Triage 02/16/2025 Encounter Details Date Type Department Care Team ([facility] st Contact Info) Description 02/16/2025 Telephone [facility] [address] [place] [address] Kimmy Ndiaye RN [address] [place], [place] [phone] Nurse Triage Social History Tobacco Use Types [...] 9:30 AM EDT Assessment: Patient presented to [facility] and was triaged and sent to [facility]. Presents to Walk- In Center as directed [...] documented as of this encounter Care Teams Document Examiner Relationship Specialty Start Date End Date Marleen Jovel MD [address] [place] [address] PCP - General Family Medicine 10/28/23 documented as of this encounter
--- OUTSIDE RECORDS SUMMARY | 2025-02-18 14:21 | XMS_ITS | Encounter Summary ---
Author Organization [employer] Address [address] [facility] [address] [place] [address] Care Team Providers Care Property Utilization Officer Name Role Phone Marleen Jovel MD Primary Care Provider [phone] Encounter Details Date Type Department Care Team (Late st Contact Info) Description 10/05/2024 Orders Only [facility] [address] [place] [address] Provider, MD Wang Social History Tobacco Use [...] documented as of this encounter Care Teams Property Utilization Officer Relationship Specialty Start Date End Date Marleen Jovel MD [address] [place] [address] PCP - General Family Medicine 10/28/23 documented as of this encounter
--- OUTSIDE RECORDS SUMMARY | 2025-02-18 14:21 | XMS_ITS | Encounter Summary ---
Author Organization [employer] Address [address] [facility] [address] [place] [address] Care Team Providers Care Piledriver Carpenter Name Role Phone Marleen Jovel MD Primary Care Provider [phone] Reason for Visit * Reason Comments Med Refill Encounter Details Date Type Department Care Team ([facility] st Contact Info) Description 07/31/[address] [facility] MED & PEDS [address] [place], [place] [phone] Marleen Jovle MD [address] [place] [address] Social History Tobacco Use Types Packs/Day Years [...] documented as of this encounter Care Teams Piledriver Carpenter Relationship Specialty Start Date End Date Marleen Jovel MD [address] [place] [phone] PCP - General Family Medicine 10/28/23 documented as of this encounter
--- OUTSIDE RECORDS SUMMARY | 2025-02-18 14:21 | XMS_ITS | Encounter Summary ---
Author Organization [employer] Address [address] [facility] 7t [place] [address] Care Team Providers Care Metal Hanging Helper Name Role Phone Marleen Jovel MD Primary Care Provider [phone] Reason for Visit * Reason Onset Date Comments ER Expect 02/16/2025 Encounter Details Date Type Department Care Team ([facility] st Contact Info) Description 02/16/[address] [facility] [address] [place] [address] Kimmy Ndiaye RN [address] [place], [place] [phone] ER Expect Social History Tobacco Use Types [...] 11:07 AM EDT ED expect called into [facility] ED. Spoke with JONATHNA Ponce. Informed of bilateral lowerextremity cellulitis with [...] documented as of this encounter Care Teams Metal Hanging Helper Relationship Specialty Start Date End Date Marleen Jovel MD [address] [place] [address] PCP - General Family Medicine 10/28/23 documented as of this encounter
== END 2025-02-18 14:18 | disposition home or self-care (01) ==
LOC: HO.HUSH 13:37
PROVIDERS: PCP Family Medicine; Visit Provider Nurse Practitioner Family
DX: R35.1 Nocturia (principal); R97.20 Elevated prostate specific antigen [PSA]; Z80.42 Family history of malignant neoplasm of prostate
CPT/HCPCS: 99214

== ENCOUNTER → 2025-02-18 13:36 | Outpatient (BNVA) | payer OTHER, SELFPAY | PROVIDERS: PCP Family Medicine; Visit Provider Nurse Practitioner Family | DX: R97.20 Elevated prostate specific antigen [PSA] (principal); R35.1 Nocturia; Z80.42 Family history of malignant neoplasm of prostate | CPT/HCPCS: 51798; 99212 ==

== ENCOUNTER 2025-03-09 07:11 | Outpatient (REF) | payer OTHER, SELFPAY ==
--- OUTSIDE RECORDS SUMMARY | 2025-03-09 07:14 | XMS_ITS | Encounter Summary ---
Author Organization [employer] Address [address] [facility] [address] 7[address] [place] [address] Care Team Providers Care Servicenow Administrator Developer Name Role Phone Marleen Jovel MD Primary Care Provider [phone] Reason for Visit * Reason Comments Med Refill Encounter Details Date Type Department Care Team ([facility] st Contact Info) Description 07/31/[address] [facility] MED [facility] PEDS [address] [place], [place] [phone] Marleen oJvel MD [address] [place] [address] Social History Tobacco Use Types Packs/Day Years [...] Care Team (Late st Contact Info) Description 04/27/2025 9:30 AM EST Office [address] [facility]S [address] [place] [address] Nhung Bearden MD [address] [place] [address] documented as of this encounter Visit Diagnoses Not on filedocumented in this encounter Additional Health Concerns Assessment Noted Time PHQ-9 Depression Total Score: 0 10/28/19 9:20 AM EDT documented as of this encounter Care Teams Servicenow Administrator Developer Relationship Specialty Start Date End Date Marleen Jovel MD [address] [place] [address] PCP - General Family Medicine 10/28/23 documented as of this encounter
--- OUTSIDE RECORDS SUMMARY | 2025-03-09 07:14 | XMS_ITS | Encounter Summary ---
Author Organization [employer] Address [address] [facility] [address] [place] [address] Care Team Providers Care Newsstand Vendor Name Role Phone Marleen Jovel MD Primary Care Provider [phone] Encounter Details Date Type Department Care Team (Late st Contact Info) Description 10/05/2024 Orders Only [facility]S [address] [place] [address] Provider, MD Wang Social History Tobacco Use [...] Description 04/27/2025 9:30 AM EST Office Visit [facility] MED & PEDS [address] [place] [address] Nhung Bearden MD [address] [place] [address] documented as of this encounter Procedures Procedure [...] documented as of this encounter Care Teams Newsstand Vendor Relationship Specialty Start Date End Date Marleen Jovel MD [address] [place] [address] PCP - General Family Medicine 10/28/23 documented as of this encounter
--- OUTSIDE RECORDS SUMMARY | 2025-03-09 07:14 | XMS_ITS | Encounter Summary ---
Author Organization [employer] Address [address] [facility] [address] [place] [address] Care Team Providers Care Middleware Systems Architect Name Role Phone Marleen Jovel MD Primary Care Provider [phone] Encounter Details Date Type Department Care Team (Latest Contact Info) Description 02/12/2025 Results Follow-Up [facility] [address] [place] [address] [phone] Tru Lomeli MD [address] [place] [address] Comprehensive Metabolic Panel, B Type Natriuretic Peptide [...] Description 04/27/2025 9:30 AM EST Office Visit [facility] [address] [place] [address] Nhung Bearden MD [address] [place] [address] documented as of this encounter Visit Diagnoses Not on filedocumented in this encounter Additional Health Concerns Assessment Noted Time PHQ-9 Depression Total Score: 0 10/28/19 9:20 AM EDT documented as of this encounter Care Teams Middleware Systems Architect Relationship Specialty Start Date End Date Marleen Jovel MD [address] [place] [address] PCP - General Family Medicine 10/28/23 documented as of this encounter
--- OUTSIDE RECORDS SUMMARY | 2025-03-09 07:14 | XMS_ITS | Clinical Summary ---
Author Organization [employer] Address [address] [place] [address] Care Team Providers Care Oyster Preparer Name Role Phone Marleen Jovel MD Primary Care Provider [phone] Allergies No known active allergies Medications tiZANidine [...] mL Active albuterol 108 (90 Base) MCG/ACT inhalerIndication [...] hours if needed (asthma). 1 each Active furosemide (Lasix) 20 MG tabletIndications :Pedal edema Take 1 tablet (20 mg) by mouth Once per day for 7 days. 7 tablet 025 2024 Active fluticasone furoate (Arnuity Ellipta) 100 MCG/ACT [...] eorder (will not trigger notification to Pharmacy)) furosemide (Lasix) 20 MG tabletIndications :Pedal edema Take 1 tablet (20 mg) by mouth Once per day for 7 days. 7 tablet 025 2024 Discontinued(R eorder (will not trigger [...] referral in the system. Will send to [facility]. Please attach media from ECG done in [...] Encounters Date Type Department Care Team Description 03/03/2025 3:40 PM EDT Office Visit [facility] [address] [place] [address] Nhung Bearden MD Bilateral leg edema (Primary Dx); Venous stasis dermatitis; Pedal edema; Mild diastolic dysfunction 03/03/2025 Travel 03/02/2025 Telephone [facility] [address] [place] [address] Marleen Jovel MD Appointment Request 03/01/2025 Telephone [facility] [address] [place] [address] Nhung Bearden MD No Show 02/16/2025 10:00 AM EDT Office Visit [facility] [address] [address] Noel Conn MD Cellulitis of right leg (Primary Dx); Cellulitis of left leg; Lower extremity edema; Dyspnea on exertion; Rhinosinusitis 02/16/2025 Orders Only GENERIC EXTERNAL DATA DEPARTMENT Provider, Generic External Data 02/16/2025 Telephone [facility] [address] [place] [phone] Kimmy Ndiaye, PRESS OFFICER Expect 02/16/2025 Telephone [facility] [address] [place] [phone] Kimmy Ndiaye, RN Nurse Triage 02/12/2025 8:40 AM EDT [facility] [address] [address] Tru Lomeli MD Pedal edema (Primary Dx) 02/12/2025 Results Follow-Up [address] [address] Tru Lomeli MD Comprehensive Metabolic Panel, B Type Natriuretic Peptide (BNP), CBC auto differential 02/12/2025 Orders Only GENERIC EXTERNAL DATA DEPARTMENT Provider, Generic External Data 02/12/2025 Travel 12/28/2024 Orders Only [facility] External Provider, [facility] from Last 3 Months Immunizations Immunization Administration Dates Next Due Hep B, adult 12/18/2023,11/20/2023 Influenza Injectable Quadriv alant Preservative Free IIV4 MDCK 04/01/2018 Influenza, IIV3, injectable 05/01/2024, 2,04/05/2015 Zoster, Recombinant 11/26/2024,09/17/2024 Family History Medical History [...] is your housing situation today? I have machelel marte 10/28/[address] you [...] Sign Reading Time Taken Comments Blood Pressure 117/79 03/03/2025 3:25 PM EDT Pulse 84 03/03/2025 3:25 PM EDT Temperature 36.8 C (98.2 F) 03/03/2025 3:25 PM EDT Respiratory Rate 20 03/03/2025 3:25 PM EDT Oxygen Saturation 98% 03/03/2025 3:25 PM EDT Inhaled Oxygen Concentration - - Weight 98 kg (216 lb) 03/03/2025 3:25 PM EDT Height 169 cm (5' 6.54 ) 03/03/2025 3:25 PM EDT Body Mass Index 34.3 03/03/2025 3:25 PM EDT Plan of Treatment Upcoming Encounters Date Type Department Care Team ([facility] st Contact Info) Description 04/27/2025 9:30 AM EST Office Visit [facility] [address] [place] [address] Nhung Bearden MD [address] [place] [address] Health Maintenance Due Date Last Done Comments CT Colonography 1965 Colonoscopy 1965 Colorectal Cancer Screening 1965 FIT DNA/Cologuard 1965 FIT 1965 FOBT 1965 Sigmoidoscopy 1965 Disability Screening 1965 Alcohol/Substance Use Screening 1976 DTaP/Tdap/Td Vaccines (1 - Tdap) 1983 Pneumococcal Vaccine: 50+ Years (1 of 2 - PCV) 1983 RSV Patients and Patients Aged 60 years or older (1 - Risk 60-74 years 1-dose series) 2024 Hepatitis B Vaccines (3 of 3 - 19+ 3-dose series) 05/22/2024 12/18/2023, 11/20/2023 Depression Screening 10/27/2024 10/28/2023, 10/28/19 24 SDOH Screening 10/27/2024 10/28/2023 COVID-19 Vaccine (3 - season) 2025 01/07/2021, 12/17/2020 Influenza Vaccine (#1) 2025 , 06/01/2022, 04/01/2018, Additional history exists Tobacco Screening 03/03/2026 03/03/2025 Lipid Panel 10/27/2028 10/28/2023 HIV Screening Completed [...] Recently Relevant to Health Maintenance Results * [facility] US Lower Extremity Venous Duplex Bilateral (02/16/2025 2:33 PM EDT) 02/16/2025 2:33 PM EDT Narrative [facility] - 02/16/2025 3:02 PM EDT [place] [address] Ultrasound Report Signed Patient: Howard Junior MR#: [id number] : 1965 Acct:[id number] Age/Sex: 59 / M ADM Date: 02/16/25 Loc: .ED Attending Dr: Ordering Physician: Fredy Villalobos Date of Service: 02/16/25 Procedure(s): US venous duplex LE BI Accession Number(s): [id number] cc: Fredy Villalobos; Marleen Jovel MD EXAMINATION: [...] 02/16/25 1500 DD/ 1433 TD/TT: 02/16/25 1447 Piano Mechanic: Procedure Note Donotuseinterpreter, Image - 02/16/[address] [address] Ultrasound Report Signed Patient: Howard JuniorMR#: [id number] : 1965Acct:[id number] Age/Sex: 59 / MADM Date: 02/16/25 Loc: .ED Attending Dr: Ordering Physician: Fredy Villalobos Date of Service: 02/16/25 Procedure(s): US venous duplex LE BI Accession Number(s): [id number] cc: Fredy Villalobos; Marleen Jovel MD EXAMINATION: [...] 02/16/25 1500 DD/ 1433 TD/TT: 02/16/25 1447 Piano Mechanic: [facility] External Provider CV VASC ULAR PROCEDURES Final Result [facility] [address] [place] [address] * (ABNORMAL) CBC auto differential (02/16/2025 1:14 PM EDT) Only the most recent of2 resultswithin the time period is included. White Blood Count 6.7 4.8 - 10.8 X10*3/uL [facility] Red Blood Count 4.53(L) 4.60 - 5.80 X10*6/uL [facility] Hemoglobin 14.6 14.0 - 18.0 g/dl [facility] Hematocrit 43.2 42.0 - 52.0 % [facility] Mean Corpuscular Volume 95.4 80.0 - 98.0 fL [facility] Mean Corpuscular Hemoglobin 32.2 27.0 - 33.0 pg [facility] Mean Corpuscular HGB Conc 33.8 31.0 - 36.0 g/dl [facility] Red Cell Distribution Width 12.9 11.0 - 16.0 % [facility] Platelet Count 188 160 - 400 X10*3/uL [facility] Mean Platelet Volume 10.1 9.4 - 12.4 fL [facility] Neutrophils Percent Auto 54.9 45 - 73 % [facility] Imm Gran Pct Auto 0.3 0.0 - 0.4 % [facility] Lymphocytes Percent Auto 30.5 20 - 40 % [facility] Monocytes Percent Auto 11.1(H) 2 - 11 % [facility] Eosinophils Percent Auto 2.8 0 - 4 % [facility] Basophils Percent Auto 0.4 0 - 2 % [facility] NRBC Pct Auto 0.0 0.0 - 0.2 /100WBC [facility] Neutrophils Absolute Auto 3.7 2.0 - 8.3 x10*3/uL [facility] Imm Gran Abs Auto 0.02 0.00 - 0.03 X10*3/uL [facility] Lymphocytes Absolute Auto 2.0 1.2 - 4.9 X10*3/uL [facility] Monocytes Absolute Auto 0.7 0.1 - 1.2 X10*3/uL [facility] Eosinophils Absolute Auto 0.2 0.0 - 0.4 X10*3/uL [facility] Basophils Absolute Auto 0.0 0.0 - 0.2 X10*3/uL [facility] NRBC Abs Auto 0.000 0.0 - 0.012 X10*3/uL [facility] 02/16/2025 1:14 PM EDT 02/16/2025 1:16 PM EDT us Generic External Data Provider LAB BLOOD ORDERAB LES Final Result Performing Organization Address [facility] Co de Phone Number [facility] [address] [place] [phone] * Sed Rate by Modified Aaron (02/16/2025 1:14 PM EDT) Pathologist [facility] Erythrocyte Sedimentation Rate 13 0 - 15 MM/HR [facility] Comment:Patients with polycy themia and many hemoglobin abnormalitiesmay have depressed sed rates whereas patients with anemiamay have elevated sed rates. 02/16/2025 1:14 PM EDT 02/16/2025 1:16 PM EDT us Generic External Data Provider LAB BLOOD ORDERAB LES Final Result Performing Organization Address [facility] Co de Phone Number [facility] [address] [place] [phone] * (ABNORMAL) C-reactive Protein (02/16/2025 1:14 PM EDT) C Reactive Protein 1.09(H) < or = 0.50 mg/dL [facility] 02/16/2025 1:14 PM EDT 02/16/2025 1:16 PM EDT Generic External Data Provider LAB BLOOD ORDERAB LES Final Result Performing Organization Address [facility]/ZIP Co de Phone Number [facility] [address] [place] [phone] * Comprehensive Metabolic Panel (02/16/2025 1:14 PM EDT) Only the most recent of2 resultswithin the time period is included. Sodium 141 135 - 145 mmol/L [facility] Potassium 3.7 3.3 - 5.1 mmol/L [facility] Chloride 106 96 - 108 mmol/L [facility] Carbon Dioxide 27 22 - 29 mmol/L [facility] Anion Gap 12 12 - 20 [facility] Urea Nitrogen (BUN) 14 9 - 16 mg/dL [facility] Creatinine, Serum 0.91 0.5 - 1.4 mg/dL [facility] Creatinine Clr Calc Pharmacy 96.0 [facility] Comment:eGFR (calculated fro m the MDRD study equation) and eCrCl(calculated from the Cockcroft-Gault equation) are based ondifferent parameters and may not yield comparable results.If eCrCl result is absurd, please check patient'sheight/weight. Estimated Glomerular Filt Rate >60 [facility] Comment:Chronic Kidney Disea se: Estimated GFR < 60 mL/min/1.59d0Dbkyme Kidney Disease: Estimated GFR < 15 mL/min/1.73m2 Glucose 87 60 - 115 mg/dL [facility] Calcium 9.1 8.4 - 10.2 mg/dL [facility] Bilirubin, Total 0.4 0.0 - 1.0 mg/dL [facility] Aspartate Amino Transferase 23 5 - 37 U/L [facility] Alanine Aminotransferase 30 0 - 40 U/L [facility] Total Protein 7.1 6.5 - 8.0 g/dL [facility] Albumin Level 4.3 3.5 - 5.0 g/dL [facility] Alkaline Phosphatase 84 39 - 117 U/L [facility] 02/16/2025 1:14 PM EDT 02/16/2025 1:16 PM EDT us Generic External Data Provider LAB BLOOD ORDERAB LES Final Result [facility] [address] [place] [phone] * XR TIBIA FIBULA 2 VW BILATERAL (02/16/2025 12:35 PM EDT) Anatomical Region Laterality Modality Radiographic Vernell ging 02/16/2025 12:3 5 PM EDT Narrative 02/16/2025 1:46 PM EDT [address] [address] XRay Report Signed Patient: Howard Junior MR#: [id number] : 1965 Acct:[id number] Age/Sex: 59 / M ADM Date: 02/16/25 Loc: HO.ED Attending Dr: Ordering Physician: Fredy Villalobos Date of Service: 02/16/25 Procedure(s): XR Tibia Fibula Marty 2V Accession Number(s): [id number] cc: Fredy Villalobos; Marleen Jovel MD Exam: [...] Keegan Zhang MD 02/16/2025 01:44 PM EDT Dictated By: Keegan Zhang MD Signed By: <Electronically signed by Keegan Zhang MD in OV> 02/16/25 1344 DD/ 1235 TD/TT: 02/16/25 1335 Piano Mechanic: Procedure Note Donotuseinterpreter, Image - 08/26/[address] [address] XRay Report Signed Patient: Howard JuniorMR#: [id number] : 1965Acct:[id number] Age/Sex: 59 / MADM Date: 02/16/25 Loc: HO.ED Attending Dr: Ordering Physician: Fredy Villalobos Date of Service: 02/16/25 Procedure(s): XR Tibia Fibula Marty 2V Accession Number(s): [id number] cc: Fredy Villalobos; Marleen Jovel MD Exam: [...] Keegan Zhang MD 02/16/2025 01:44 PM EDT Dictated By: Keegan Zhang MD Signed By: <Electronically signed by Keegan Zhang MD in OV> 02/16/25 1344 DD/ 1235 TD/TT: 02/16/25 1335 Piano Mechanic: [facility] External Provider IMG XR PROCEDURES Final Result * (ABNORMAL) PSA,Total (02/12/2025 10:08 AM EDT) Prostate Specific Antigen 5.41(H) <0.05 - 4.0 ng/mL [facility] Comment:PSA methodology: Stas Jackson i ChemiluminescentMicroparticle Immunoassay (CMIA) 02/12/2025 10:0 8 AM EDT 02/12/2025 11:51 AM EDT us Generic External Data Provider LAB BLOOD ORDERAB LES Final Result Performing Organization Address [facility] Co de Phone Number [facility] [address] [place] [phone] * (ABNORMAL) B Type Natriuretic Peptide (BNP) (02/12/2025 10:08 AM EDT) B Type Natriuretic Peptide 133(H) <100 pg/mL [facility] Blood Venous blood specimen / Unknown 02/12/2025 10:08 AM EDT 02/12/2025 11:50 AM EDT Tru Lomeli MD LAB BLOOD ORDERABLES Final Resul t Performing Organization Address [facility] Co de Phone Number [facility] [address] [place] [phone] * XR Chest 2 Views (02/12/2025 8:28 AM EDT) Anatomical Region Laterality Modality Chest Radiographic Vernell ging 02/12/2025 8:28 AM EDT Narrative 02/12/2025 9:26 AM EDT [address] [address] XRay Report Signed Patient: Howard Junior MR#: [id number] : 1965 Acct:[id number] Age/Sex: 59 / M ADM Date: 02/12/25 Loc: HO.HHCX Attending Dr: Tru Lomeli MD Ordering Physician: Tru Lomeli MD Date of Service: 02/12/25 Procedure(s): XR chest 2V Accession Number(s): [id number] cc: Tru Lomeli MD EXAMINATION: XR CHEST [...] in OV> 02/12/25922 DD/ 7 TD/TT: 02/12/25914 Piano Mechanic: Procedure Note Donotuseinterpreter, Image - 02/12/[address] [address] XRay Report Signed Patient: Howard JuniorMR#: [id number] : 1965Acct:[id number] Age/Sex: 59 / MADM Date: 02/12/25 Loc: HOHHCX Attending Dr: Tru Lomeli MD Ordering Physician: Tru Lomeli MD Date of Service: 02/12/25 Procedure(s): XR chest 2V Accession Number(s): [id number] cc: Tru Lomeli MD EXAMINATION: XR CHEST [...] in OV> 02/12/25922 DD/ 7 TD/TT: 02/12/25914 Piano Mechanic: Tru Lomeli MD IMG XR PROCEDURES Final Result * FL Esophagus Barium Swallow (12/28/2024 9:17 AM EDT) Anatomical Region Laterality Modality Head, Neck Radiographic Vernell ging 12/28/2024 9:17 AM EDT Narrative 12/28/2024 10:20 AM EDT [address] [address] Fluoroscopy Report Signed Patient: Howard Junior MR#: [id number] : 1965 Acct:[id number] Age/Sex: 59 / M ADM Date: 12/28/24 Loc: HO.XRAY Attending Dr: Zonia Gongora MD Ordering Physician: Zonia Gongora MD Date of Service: 12/28/24 Procedure(s): FL barium swallow Accession Number(s): [id number] cc: Marleen Jovel MD; Zonia Gongora MD [...] Villatoro MD in OV> 12/28/24 1018 DD/ TD/TT: 12/28/24 0951 Piano Mechanic: [facility] Procedure Note Donotuseinterpreter, Image - 12/28/2024 [place] [address] Fluoroscopy Report Signed Patient: Howard JnuiorMR#: [id number] : 1965Acct:[id number] Age/Sex: 59 / MADM Date: 12/28/24 Loc: HO.XRAY Attending Dr: Zonia Gongora MD Ordering Physician: Zonia Gongora MD Date of Service: 12/28/24 Procedure(s): FL barium swallow Accession Number(s): [id number] cc: Marleen Jovel MD; Zonia Gongora MD [...] 12/28/24 1018 DD/ 0917 TD/TT: 12/28/24 0951 Piano Mechanic: NICANOR [facility] External Provider IMG FLU OROSCOPY PROCEDURES Final Result * Hepatitis C Antibody with Reflex to HCV, RNA, Quantitative, Real-Time PCR (10/28/2023 10:49 AM EDT) Hepatitis C Antibody Nonreactive Nonreactive [facility] Comment:Antibodies to HCV no t detected; does not exclude early acuteHCV infection. Blood Venous blood specimen / Unknown 10/28/2023 10:49 AM EDT 10/28/2023 2:07 PM EDT Marleen Jovel MD LAB BLOOD ORDERABLES Final Re sult [facility] [address] [place] [phone] * HIV-1/2 Antigen and Antibodies, Fourth Generation, with Reflexes (10/28/2023 10:49 AM EDT) HIV AB/AG Nonreactive Nonreactive [facility] Comment:HIV-1 p24 Ag and/or HIV-1/HIV-2 Ab not detected.A test result that is nonreactive does not exclude thepossibility of exposure to or infection with HIV-1 and/orHIV-2. Nonreactive results in this assay for individualswith prior exposure to HIV-1 and/or HIV-2 may be due toantigen and antibody levels that are below the limit ofdetection of this assay.The joiz HIV Ag/Ab Combo assay result andsupplemental assay results should be interpreted inconjunction with the patient's clinical presentation,history and other laboratory results. If the results areinconsistent with clinical evidence, additional testing issuggested to confirm the result. Blood Venous blood specimen / Unknown 10/28/2023 10:49 AM EDT 10/28/2023 2:07 PM EDT Marleen Jovel MD LAB BLOOD ORDERABLES Final Re sult Performing Organization Address [facility] de Phone Number [facility] [address] [place] [phone] * (ABNORMAL) Lipid Panel, Standard (10/28/2023 10:49 AM EDT) Triglycerides 62 <150 mg/dL [facility] Comment:Desirable Triglyceri de: less than 150 mg/dLBorderline High Triglyceride 150-199 mg/dLHigh Triglyceride: 200-499 mg/dLVery High Triglyceride: greater than or equal to 5OO mg/dL Cholesterol 174 <200 mg/dL [facility] Comment:Desirable Cholestero l: less than 200 mg/dLBorderline High Cholesterol: 200-239 mg/dLHigh Cholesterol: greater than 239 mg/dL LDL Cholesterol Calculated 107(H) <100 mg/dL [facility] Comment:Desirable LDL: less than 100 mg/dLNear Optimal/Above Optimal LDL: 110- 129 mg/dLBorderline High LDL: 130-159 mg/dLHigh LDL: 160-189 mg/dLVery High LDL: greater than or equal to 190 mg/dL HDL Cholesterol 55 >40 mg/dL [facility] Comment:Desirable HDL: great er than 40 mg/dL Note: This HDL assay may give artificially low results in patients with liver disease. Blood Venous blood specimen / Unknown 10/28/2023 10:49 AM EDT 10/28/2023 2:07 PM EDT us Marleen Jovel MD LAB BLOOD ORDERABLES Final Re sult Performing Organization Address [facility] Co de Phone Number [facility] [address] [place] [phone] from Last 3 Months or Most Recently Relevant to Health Maintenance Insurance [facility] Care Teams Oyster Preparer Relationship Specialty Start Date End Date Marleen Jovel MD [address] [place] [phone] PCP - General Family Medicine 10/28/23
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
[2025-03-09] MEDS: Lidocaine HCl 1 % MPF 5 ML VIAL 10 ML SUBCUT (08:23)
--- NOTE | 2025-03-25 21:32 | W.PM.OPN ---
Operative Note Operative Note Date of Service: 03/25/25 Narrative: Preoperative diagnosis: Elevated PSA Postoperative diagnosis: Elevated PSA Procedure: 1. transrectal ultrasound measurement of prostate 2. transrectal ultrasound-guided pudendal nerve block 3. transrectal ultrasound-guided prostate biopsy 12 core Surgeon: Dr. Aravind Wilkins Anesthetic: 10cc 1% lidocaine Indications for procedure: Elevated PSA 5.4 Counselling: Technical aspects, risks and benefits of proposed procedure were discussed in full. All questions have been answered, written consent has been obtained and patient agrees to proceed. Procedure: The patient was brought into the procedure area and placed in a left lateral decubitus position. Patient identity confirmed. Perioperative antibiotics confirmed. Safety pause time out performed. GAY was performed to dilate rectal sphincter Iodine 10cc with 60 cc gel was placed per rectum to reduce infection risk using a catheter tip syringe. 8 Hz Myles rectal end-fire ultrasound probe was placed transrectally without difficulty. The prostate was visualized. Seminal vesicles were normal. Prostate margins were clearly demarcated. Bladder was seen superiorly. No cystic structures were noted No calcifications were noted at the surgical margin The prostate was otherwise homogeneous in nature The prostate was measured in 3 dimensions Prostatic Width: 5 cm Prostatic Height: 6 cm Urethral Length: 6 cm Total volume equals : 75 ml An ultrasound-guided pudendal nerve block was performed using a 22 gauge spinal needle in the sagittal plane. 4 cc of 1% lidocaine placed at the junction of each seminal vesicle and 2 cc placed at the apex of the prostate. A 12 core biopsy was performed with 6 cores each side using an 18 gauge prostate biopsy gun. Two cores each were taken at the prostate apex, mid and base on each side. Cores were spaced between lateral and medial aspects. Each core was examined as placed on specimen foam as part of quality assurance monitor final to ensure a minimum 1 cm of length and minimal discontinuity. He tolerated the procedure well with minimal rectal bleeding. Blood pressure remained stable following procedure. He was able to ambulate to bathroom after 5 minutes. Printed instructions regarding antibiotic use and common adverse events from the procedure such as low-grade temperature, potential infection and bleeding were given. He understands to call the office or go to an emergency room should any of these events arise. Pathology: 12 core prostate biopsy. CPT code 88925: Transrectal ultrasound; this is a diagnostic test for evaluation of the prostate and surrounding structures, looking for abnormalities or suspicious areas worrisome for cancer CPT code 21703: Biopsy, prostate; needle or punch, single or multiple, any approach CPT code 13183: Ultrasonic guidance for needle placement (eg, biopsy, aspiration, injection, localization device), imaging supervision and interpretation
== END 2025-03-09 07:12 | disposition home or self-care (01) ==
LOC: HO.US 07:11
PROVIDERS: PCP Family Medicine; Visit Provider Urology
DX: R97.20 Elevated prostate specific antigen [PSA] (principal); Z80.42 Family history of malignant neoplasm of prostate
CPT/HCPCS: 55700; 76942; 88305; J2003

== ENCOUNTER → 2025-03-09 07:11 | Outpatient (BNV) | payer OTHER, SELFPAY | PROVIDERS: PCP Family Medicine; Visit Provider Urology | DX: R97.20 Elevated prostate specific antigen [PSA] (principal) | CPT/HCPCS: 55700; 76872; 76942 ==

== ENCOUNTER 2025-03-25 14:58 | Outpatient (AMB) | payer OTHER, SELFPAY ==
--- OUTSIDE RECORDS SUMMARY | 2025-03-21 16:36 | XMS_ITS | Encounter Summary ---
Author Organization [facility] Address [address] [place] [address] Care Team Providers Care Erp Technical Lead Name Role Phone Marleen Jovel MD Primary Care Provider [phone] Reason for Visit * Reason Comments Foot Pain Encounter Details Date Type Department Care Team (Late st Contact Info) Description 03/21/2025 4:36 PM EDT - 03/21/2025 9:42 PM EDT Emergency [facility] Emergency [address] [place] [id number] Verónica Gross MD [address] [place] [address] Chest pain, unspecified type (Primary Dx); Leg swelling; Bronchitis Discharge Disposition: Home or Self Care Social History Tobacco Use Types Packs/Day Years Used Date Smoking Tobacco: Never Smokeless Tobacco: Never Interpersonal Safety Answer Date Record ed Physical Abuse Unrecognized value 02/25/2025 Verbal Abuse Unrecognized value 02/25/2025 Sex and Gender Information Value Date Recorded Sex Assigned at Male 10/02/2024 7:49 PM EDT Legal Sex Male 4:35 AM EST Gender Identity Male 10/02/2024 7:49 PM EDT Sexual Orientation Straight 10/02/2024 7: 49 PM EDT documented as of this encounter Last Filed Vital Signs Vital Sign Reading Time Taken Comments Blood Pressure 123/89 03/21/2025 8:58 PM EDT Pulse 74 03/21/2025 8:58 PM EDT Temperature 37.4 C (99.3 F) 03/21/2025 8:58 PM EDT Respiratory Rate 20 03/21/2025 8:58 PM EDT Oxygen Saturation 98% 03/21/2025 8:58 PM EDT Inhaled Oxygen Concentration - - Weight 95.3 kg (210 lb) 03/21/2025 4:12 PM EDT Height 170.2 cm (5' 7 ) 03/21/2025 4:12 PM EDT Body Mass Index 32.89 03/21/2025 4:12 PM EDT documented in this encounter Functional Status * Are you deaf or do you have serious difficulty hearing? Answer Date of Assessment Author No 02/25/2025 8:07 PM EDT Mila Green RN * Are you blind or do you have serious difficulty seeing, even when wearing glasses? Answer Date of Assessment Author No 02/25/2025 8:07 PM EDT Mila Green RN * Do you have serious difficulty walking or climbing stairs? Answer Date of Assessment Author No 02/25/2025 8:07 PM EDT Mila Green RN * Do you have serious difficulty dressing or bathing? Answer Date of Assessment Author No 02/25/2025 8:07 PM EDT Mila Green RN * Because of a physical, mental, or emotional condition, do you have serious difficulty doing errandsalone such as visiting the doctor? Answer Date of Assessment Author No 02/25/2025 8:07 PM EDT Mila Green RN documented as of this encounter Mental Status * Because of a physical, mental, or emotional condition, do you have serious difficulty concentrating, remembering, or making decisions? (5 years old or older) Answer Entry Date Author No 02/25/2025 8:07 PM EDT Mila Green RN documented in this encounter Discharge Instructions * Attachments The following attachments cannot be sent through Care Everywhere. * Chest Pain (Niuean) * Edema: Leg and Ankle (Niuean) * Bronchitis (Niuean) documented in this encounter Medications at Time of Discharge albuterol HFA (PROAIR HFA ; PROVENTIL HFA ; VENTOLIN HFA) 90 mcg/actuation inhaler Inhale 2 puffs by mouth Every 4 hours as needed. 02/16/2025 amLODIPine (NORVASC) 5 mg tablet Take 1 tablet (5 mg total) by mouth 1 (one) time each day. cetirizine (ZyrTEC) 10 mg tablet Take 1 tablet (10 mg total) by mouth daily. 10/28/2023 clobetasoL (TEMOVATE) 0.05 % ointment Apply 1 Application topically 2 (two) times a day. 10/27/2024 fluticasone furoate (ARNUITY ELLIPTA) 100 mcg/actuation blister with device inhaler Inhale 1 puff by mouth daily. 02/16/2025 ketotifen fumarate (ZADITOR) 0.035 % ophthalmic solution Administer 1 drop into affected eye(s) 2 times daily. 09/17/2024 azithromycin (ZITHROMAX) 250 mg tablet Take 2 tablets (500 mg total) by mouth 1 (one) time each day for 1 day, THEN 1 tablet (250 mg total) 1 (one) time each day for 4 days. 6 each 03/21/2025 5 documented as of this encounter Ordered Prescriptions Prescription Sig Dispense Quantity Refills Last Filled Start Date End Date azithromycin (ZITHROMAX) 250 mg tablet Take 2 tablets (500 mg total) by mouth 1 (one) time each day for 1 day, THEN 1 tablet (250 mg total) 1 (one) time each day for 4 days. 6 each 03/21/2025 5 documented in this encounter Discharge Disposition Disposition Code Departure Means Destination Comment s Home or Self Care Primary rn reviewed discharge, self ambulated to exit documented in this encounter Progress Notes * Nighat Jackson RN - 03/21/2025 6:00 PM EDT Pt c/o chest pain and SOB. Pt is 98% RA on sat probe. Pt appears to be in NAD. Provider made aware.No new orders at this time. * Kya Brumfield RN - 03/21/2025 4:17 PM EDT He was admitted here earlier this month for cellulitis in both lower legs and feet. He was treated with IV Vanco and Rocephin and discharged on Keflex. He is finishing the Keflex today but his feet still hurt a lot and his lower legs still hurt and still have erythema. * Verónica Gross MD - 03/21/2025 4:09 PM EDT HPI Chief Complaint Patient presents with Foot Pain 59-year-old male with past medical history of hypertension, venous stasis dermatitis presenting to the ED due to concern for worsening swelling of bilateral lower extremities worse on the left side. Was recently admitted for similar symptoms at the beginning of February. Blood cultures were negative at that time and he was treated with IV cefazolin and then discharged home with Keflex which she has since completed. States a couple of days ago he began to notice worsening swelling again. Last night began to have some minimal chest pain without dyspnea. Also endorsing onset of cough last night. No hemoptysis. No fevers or chills. No abdominal pain. No history of PE or DVT. Ashly Coma Scale Score: 15 Patient History Medical History[1] Surgical History[2] Family History[3] Social History Tobacco Use Smoking status: Never Smokeless tobacco: Never Substance Use Topics Alcohol use: Not on file Drug use: Not on file Review of Systems Review of Systems Physical Exam ED Triage Vitals [03/21/25 1612] Temp Heart Rate Resp BP 36.7 ??C (98.1 ??F) 85 16 136/85 SpO2 Temp Source Heart Rate Source Patient Position 96 % Oral -- -- BP Location FiO2 (%) -- -- Physical Exam Constitutional: Appearance: Normal appearance. HENT: Head: Normocephalic. Cardiovascular: Rate and Rhythm: Normal rate and regular rhythm. Pulmonary: Effort: Pulmonary effort is normal. Musculoskeletal: Comments: Minimal bilateral lower extremity noted (left>right), compartments soft. Palpable peripheral pulses. Venous stasis changes without warmth/significant asymmetric edema Neurological: General: No focal deficit present. Mental Status: He is alert and oriented to person, place, and time. ED Course & MDM Clinical Impressions as of 03/21/252049 Chest pain, unspecified type Leg swelling Bronchitis Medical Decision Making 59-year-old male presenting to the ED due to concern for acute on chronic worsening of bilateral lower extremity edema. On arrival to ED patient is hemodynamically stable. No acute or respiratory distress. Some bilateral lower extremity edema noted. Minimally increased on the left side. Compartments soft. Examination more consistent with venous stasis versus acute cellulitis. Ultrasound without evidence of DVT. Also endorsing some chest discomfort/cough since last night. EKG without acute ischemic changes. Initial and repeat troponin not elevated. Do not suspect ACS at this time. CTA without evidence of PE. Some mucous plugging noted which may be secondary to developing underlying infectious process. Will empirically treat with antibiotics. Discharged home. Return precautions discussed. Procedures Verónica Gross MD 03/21/25 2988 [1] Past Medical History: Diagnosis Date Hypertension [2] History reviewed. No pertinent surgical history. [3] No family history on file. Verónica Gross MD 03/21/252050 documented in this encounter Plan of Treatment Not on file documented as of this encounter Procedures Procedure Name Priority Date/Time Associated Diagnosis Comments ECG ANNOTATED 03/22/2025 TROPONIN I HIGH SENSITIVITY Timed 03/21/2025 6:[address] ANGIO CHEST WO AND/OR W CONTRAST STAT 03/21/2025 6:09 PM EDT Chest pain, unspecified type ECG 12-LEAD STAT 03/21/2025 5:56 PM EDT VAS US DUPLEX LOWER EXT VENOUS BILAT STAT 03/21/2025 5:18 PM EDT Leg swelling TROPONIN I HIGH SENSITIVITY Timed 03/21/2025 4:47 PM EDT COMPLETE BLOOD COUNT STAT 03/21/2025 4:47 PM EDT BASIC METABOLIC PANEL STAT 03/21/2025 4:47 PM EDT documented in this encounter Results * ECG-Annotated (03/22/2025) us Provider Onbase ECG ORDERABLES Final Result * Troponin I High Sensitivity (03/21/2025 6:31 PM EDT) High Sensitivity Troponin I 9 <=79 ng/L LAB CHEMISTRY METHOD 03/21/2025 7:08 PM EDT [facility] Blood Venous blood specimen / Unknown Venipuncture / Unknown 03/21/2025 6:31 PM EDT 03/21/2025 6:41 PM EDT Narrative [facility] - 03/21/2025 7:08 PM EDT High levels of biotin in samples may falsely decrease hsTroponin values. Use caution when interpreting hsTroponin results in patients taking biotin who exhibit renal impairment (eGFR <60) or in patients taking more than 20 mg/day of biotin. Verónica Gross MD LAB BLOOD ORDERABLES Final Resul t [facility] [address] [place] [address], [place] [phone] * CT Angio Chest wo and/or w Contrast (03/21/2025 6:09 PM EDT) Anatomical Region Laterality Modality Body Computed Tomogra phy 03/21/2025 6:34 PM EDT Impressions 03/21/2025 6:34 PM EDT 1. No acute pulmonary embolus. 2. Diffuse bronchiolar wall thickening with few areas of mucous plugging. This document has been electronically signed by: Doug Gaston MD on 03/21/2025 18:34:25 Narrative 03/21/2025 6:34 PM EDT INDICATION: PE suspected, high prob CT angiography chest with contrast. 3D Postprocessing. Comparison: DX/SR - XR CHEST 2 VW - 10/02/24 19:20 EDT Findings: Cardiomegaly. No pericardial effusion. Normal RV/LV ratio. Coronary atherosclerosis. Unremarkable thoracic aorta and great vessels. No aneurysm. No acute pulmonary embolus. The visualized thyroid and mediastinum are unremarkable. Diffuse bronchiolar wall thickening with few areas of mucous plugging. No consolidation, pleural effusion or pneumothorax. No acute findings in the visualized upper abdomen. Degenerative changes of the spine. Chronic multilevel anterior wedging in the midthoracic spine. Procedure Note Doug Gaston MD - 03/21/2025 INDICATION: PE suspected, high prob CT angiography chest with contrast. 3D Postprocessing. Comparison: DX/SR - XR CHEST 2 VW - 10/02/24 19:20 EDT Findings: Cardiomegaly. No pericardial effusion. Normal RV/LV ratio. Coronary atherosclerosis. Unremarkable thoracic aorta and great vessels. No aneurysm. No acute pulmonary embolus. The visualized thyroid and mediastinum are unremarkable. Diffuse bronchiolar wall thickening with few areas of mucous plugging. No consolidation, pleural effusion or pneumothorax. No acute findings in the visualized upper abdomen. Degenerative changes of the spine. Chronic multilevel anterior wedgingin the midthoracic spine. IMPRESSION: 1. No acute pulmonary embolus. 2. Diffuse bronchiolar wall thickening with few areas of mucousplugging. This document has been electronically signed by: Doug Gaston MD on 03/21/2025 18:34:25 Verónica Gross MD IMG CT PROCEDURES Final Result * 12-Lead ECG (03/21/2025 5:56 PM EDT) Ventricular Rate ECG 70 BPM GEMUSE Atrial Rate 70 BPM GEMUSE P-R Interval 140 ms GEMUSE QRS Duration 88 ms GEMUSE Q-T Interval 414 ms GEMUSE QTc 447 ms GEMUSE P Wave Hoffman 32 degrees GEMUSE R Hoffman -23 degrees GEMUSE T Hoffman 0 degrees GEMUSE ECG Interpretation Normal sinus rhythm Normal ECG When compared with ECG of 02-OCT-2024 20:09, No significant change was found Confirmed by KIEL ROBERSON ([id number]) on 03/21/2025 10:51:55 PM GEMUSE 03/21/2025 5:56 PM EDT 03/21/2025 10:51 PM EDT us Verónica Gross MD ECG ORDERABLES Final Result GEMUSE * Vascular US Duplex Lower Extremity Venous Bilateral (03/21/2025 5:18 PM EDT) Anatomical Region Laterality Modality Vascular, Abdomen Ultrasound 03/21/2025 9:07 PM EDT Impressions 03/21/2025 9:08 PM EDT NO RIGHT OR LEFT LOWER EXTREMITY DEEP VENOUS THROMBOSIS. -------- FINAL REPORT -------- Dictated By: MILI SARAH Dictated Date: 03/21/2025 21:07 ET Assigned Physician: MILI SARAH Reviewed and Electronically Signed By: MILI SARAH Signed Date: 03/21/2025 21:08 ET Workstation ID: [id number] Transcribed By: Self Edit Transcribed Date: 03/21/2025 21:07 ET Narrative 03/21/2025 9:08 PM EDT PROCEDURE: VAS US DUPLEX LOWER EXT VENOUS BILAT INDICATION: Bilateral leg swelling TECHNIQUE: 2-D and color Doppler imaging of the lower extremity venous vasculature with compression and augmentation maneuvers. COMPARISON: No priors available. FINDINGS: RIGHT: There is normal flow, compression, and augmentation from the common femoral through the popliteus. Visualized calf veins are patent LEFT: There is normal flow, compression, and augmentation from the common femoral through the popliteus. Visualized calf veins are patent. Procedure Note Mili Sarah MD - 03/21/2025 PROCEDURE: VAS US DUPLEX LOWER EXT VENOUS BILAT INDICATION: Bilateral leg swelling TECHNIQUE: 2-D and color Doppler imaging of the lower extremity venousvasculature with compression and augmentation maneuvers. COMPARISON: No priors available. FINDINGS: RIGHT: There is normal flow, compression, and augmentation from the commonfemoral through the popliteus. Visualized calf veins are patent LEFT: There is normal flow, compression, and augmentation from the commonfemoral through the popliteus. Visualized calf veins are patent. IMPRESSION: NO RIGHT OR LEFT LOWER EXTREMITY DEEP VENOUS THROMBOSIS. -------- FINAL REPORT -------- Dictated By: MILI SARAH Dictated Date: 03/21/2025 21:07 ET Assigned Physician: MILI SARAH Reviewed and Electronically Signed By: MILI SARAH Signed Date: 03/21/2025 21:08 ET Workstation ID: [id number] Transcribed By: Self Edit Transcribed Date: 03/21/2025 21:07 ET us Verónica Gross MD CV VASCULAR PROCEDURES Final Res ult * Troponin I High Sensitivity (03/21/2025 4:47 PM EDT) [facility] High Sensitivity Troponin I 8 <=79 ng/L LAB CHEMISTRY METHOD 03/21/2025 5:29 PM EDT [facility] Blood Venous blood specimen / Unknown Venipuncture / Unknown 03/21/2025 4:47 PM EDT 03/21/2025 5:05 PM EDT Narrative [facility] - 03/21/2025 5:29 PM EDT High levels of biotin in samples may falsely decrease hsTroponin values. Use caution when interpreting hsTroponin results in patients taking biotin who exhibit renal impairment (eGFR <60) or in patients taking more than 20 mg/day of biotin. us Verónica Gross MD LAB BLOOD ORDERABLES Final Resul t [facility] [address] [place] [address], * (ABNORMAL) Basic Metabolic Panel (BMP) (03/21/2025 4:47 PM EDT) [facility] Sodium 140 133 - 145 mmol/L LAB CHEMISTRY METHOD 03/21/2025 5:29 PM EDT [facility] Potassium 3.7 3.5 - 5.5 mmol/L LAB CHEMISTRY METHOD 03/21/2025 5:29 PM EDT [facility] Chloride 104 96 - 110 mmol/L LAB CHEMISTRY METHOD 03/21/2025 5:29 PM EDT [facility] CO2 29 21 - 32 mmol/L LAB CHEMISTRY METHOD 03/21/2025 5:29 PM EDT [facility] Anion Gap 7 3 - 11 LAB CHEMISTRY METHOD 03/21/2025 5:29 PM EDT [facility] Glucose 100 70 - 100 mg/dL LAB CHEMISTRY METHOD 03/21/2025 5:[address] [facility] BUN 26(H) 5 - 25 mg/dL LAB CHEMISTRY [facility]25 [facility] Creatinine 1.21 0.70 - 1.30 mg/dL LAB CHEMISTRY METHOD 03/21/2025 5:[facility] eGFR 69 >=60 mL/min/1. 73m2 LAB CHEMISTRY METHOD 03/21/2025 5:29 PM EDT [facility] Comment:Calculation based on the Chronic Kidney Disease Epidemiology Collaboration (CKD-EPI) equation refit without adjustment for race. BUN/Creatinine Ratio 21.5 LAB CHEMISTRY METHOD 03/21/2025 5:[address] [facility] Calcium 8.8 8.5 - 10.5 mg/dL LAB CHEMISTRY METHOD 03/21/2025 5:[address] [facility] Blood Venous blood specimen / Unknown Venipuncture / Unknown 03/21/2025 4:47 PM EDT 03/21/2025 5:05 PM EDT us Verónica Gross MD LAB BLOOD ORDERABLES Final Resul t [facility] [address] [place] [address], * (ABNORMAL) CBC (03/21/2025 4:47 PM EDT) WBC 7.6 4.8 - 10.8 K/mcL LAB HEMETOLOGY METHOD 03/21/2025 5:10 PM EDT [facility] RBC 4.40(L) 4.50 - 5.50 M/mcL LAB HEMETOLOGY METHOD 03/21/2025 5:10 PM EDT [facility] Hemoglobin 13.8 13.5 - 17.5 g/dL LAB HEMETOLOGY METHOD 03/21/2025 5:10 PM EDT [facility] Hematocrit 42.8 42.0 - 54.0 % LAB HEMETOLOGY METHOD 03/21/2025 5:10 PM EDT [facility] MCV 96.4 79.0 - 98.0 FL LAB HEMETOLOGY METHOD 03/21/2025 5:10 PM EDT [facility] MCH 31.1 27.0 - 32.0 pcg LAB HEMETOLOGY METHOD 03/21/2025 5:10 PM EDT [facility] MCHC 32.2 32.0 - 37.0 g/dL LAB HEMETOLOGY METHOD 03/21/2025 5:10 PM EDT [facility] RDW 12.8 11.0 - 15.0 % LAB HEMETOLOGY METHOD 03/21/2025 5:10 PM EDT [facility] Platelets 211 130 - 400 K/mcL LAB HEMETOLOGY METHOD 03/21/2025 5:10 PM EDT [facility] MPV 10.3 7.0 - 11.0 FL LAB HEMETOLOGY METHOD 03/21/2025 5:10 PM EDT [facility] NRBC 0.0 <1.0 % LAB HEMETOLOGY METHOD 03/21/2025 5:10 PM EDT [facility] NRBC Absolute 0.00 <0.10 K/mcL LAB HEMETOLOGY METHOD 03/21/2025 5:10 PM EDT [facility] Blood Venous blood specimen / Unknown Venipuncture / Unknown 03/21/2025 4:47 PM EDT 03/21/2025 5:05 PM EDT us Verónica Gross MD LAB BLOOD ORDERABLES Final Resul t [facility] [address] [place] [address], documented in this encounter Visit Diagnoses Diagnosis Chest pain, unspecified type- Primary Leg swelling Swelling of limb Bronchitis Bronchitis, not specified as acute or chronic documented in this encounter Administered Medications Inactive Administered Medications - up to 3 most recent administrations Medication Order MAR Action Action Date Dose Rate Site iopamidoL (ISOVUE-370) 370 mg iodine /mL (76 %) injection 100 mL 100 mL, intravenous, Once in imaging, Starting on 03/21/25 at 1803, For 1 dose Given 03/21/2025 6:06 PM EDT 90 mL sodium chloride 0.9 % flush 10 mL 10 mL, intravenous, Once, On 03/21/25 at 1804, For 1 dose Given 03/21/2025 6:06 PM EDT 10 mL documented in this encounter Active and Recently Administered Medications Times are shown in EDT. Scheduled Medication Order 03/19/2025 03/20/2025 03/21/2025 iopamidoL (ISOVUE-370) 370 mg iodine /mL (76 %) injection 100 mL (COMPLETED) 100 mL, intravenous, Once in imaging, Starting on 03/21/25 at 1803, For 1 dose 1806 (Given - Provid er: Aneta Juarez) sodium chloride 0.9 % flush 10 mL (COMPLETED) 10 mL, intravenous, Once, On 03/21/25 at 1804, For 1 dose 1806 (Given - Provid er: Aneta Juarez) documented in this encounter Care Teams Erp Technical Lead Relationship Specialty Start Date End Date Marleen Jovel MD [address] [place] [address] PCP - General Family Medicine 10/02/24 documented as of this encounter
--- OUTSIDE RECORDS SUMMARY | 2025-03-25 10:00 | XMS_ITS | Encounter Summary ---
Author Organization [employer] Address [address] [facility] [address] [place] [address] Care Team Providers Care Hrbp Name Role Phone Marleen Jovel MD Primary Care Provider [phone] Reason for Referral * Consultation (Routine) - Authorized Specialty Diagnoses / Procedures Referred By Contac t Referred To Contact Behavioral Health Diagnoses Other depression Procedures Referral to Behavioral Health Nhung Bearden MD [address] [place] [address] Phone: tel: fax: Referral ID Status Reason Start Date Expiration Date Visits Requested Visits Authorized [id number] Authorized Specialty Services Required 03/25/2025 03/25/2026 1 1 Reason for Visit * Reason Comments HDF Encounter Details Date Type Department Care Team ([facility] st Contact Info) Description 03/25/2025 10:00 AM EDT Office Visit [facility]S [address] [place] [address] Nhung Bearden MD [address] [place] [address] Venous stasis dermatitis (Primary Dx); Essential hypertension; SOB (shortness of breath); Diastolic dysfunction; Other depression Social History Tobacco Use Types Packs/Day Years Used Date Smoking Tobacco: Never Passive Smoke Exposure: Never Smokeless Tobacco: Never Alcohol Use Standard Drinks/Week Comments Yes 0 (1 standard drink = 0.6 oz pur e alcohol) Depression Answer Date Recorded Patient Health Questionnaire-9 Score 8 03/25/2025 Patient Health Questionnaire-9 Score 8 03/25/2025 Last PHQ-9: Questionnaire Data Not on file 1 Housing Stability Answer Date Recorded What is your housing situation today? I have machelle marte 03/25/[address] you li ve. Do you have problems with any of the following? None of the above 03/25/2025 Food Insecurity Answer Date Recorded Within the past 12 months, y ou worried that your food would run out before you got money to buy more: Never True 03/25/2025 Within the past 12 months,th e food you bought just didn't last and you didn't have enough money to get more: Never True 07/2024 Transportation Answer Date Recorded In the past 12 months, has l ack of transportation kept you from medical appts, meetings, work or from getting things needed for daily living? No 03/25/2025 Utilities Answer Date Recorded In the past 12 months, has t he electric, gas, oil or water company threatened to shut off services in your home? No 03/25/2025 Depression Answer Date Recorded Patient Health Questionnaire-2 Score 2 03/25/2025 Internet Access Answer Date Recorded Internet Access Q1 Yes 03/25/2025 Internet Access Q2 Not on file 03/25/2025 Education Answer Date Recorded What is the [...] Sign Reading Time Taken Comments Blood Pressure 104/66 03/25/2025 9:35 AM EDT Pulse 60 03/25/2025 9:35 AM EDT Temperature - - Respiratory Rate 20 03/25/2025 9:35 AM EDT Oxygen Saturation 97% 03/25/2025 9:35 AM EDT Inhaled Oxygen Concentration - - Weight 99.3 kg (219 lb) 03/25/2025 9:35 AM EDT Height 169 cm (5' 6.54 ) 03/25/2025 9:35 AM EDT Body Mass Index 34.78 03/25/2025 9:35 AM EDT documented in this encounter Functional Status * Over the past 2 weeks, how often have you been bothered by any of the following problems? Question Answer Date of Assessment Author Patient Health Questionnaire-2 Score 2 07/2024 10:21 AM Mya Myers [place] * Little interest or pleasure in doing things Answer Date of Assessment Author Several days 03/25/2025 10:21 AM Leatha Myers MA * Feeling down, depressed, or hopeless Answer Date of Assessment Author Several days 03/25/2025 10:21 AM Leatha Myers MA * Trouble falling or staying asleep, or sleeping too much Answer Date of Assessment Author Nearly every day 03/25/2025 10:21 AM Mya Myers MA * Feeling tired or having little energy Answer Date of Assessment Author More than half the days 03/25/2025 10:21 AM Mya Myers MA * Poor appetite or overeating Answer Date of Assessment Author Several days 03/25/2025 10:21 AM Leatha Myers MA * Feeling bad about yourself - or that you are a failure or have let yourself or your family down Answer Date of Assessment Author Not at all 03/25/2025 10:21 AM Leatha Myers MA * Trouble concentrating on things, such as reading the newspaper or watching television Answer Date of Assessment Author Not at all 03/25/2025 10:21 AM Leatha Myers MA * Moving or speaking so slowly that other people could have noticed? Or the opposite - being so fidgety or restless that you have been moving around a lot more than usual. Answer Date of Assessment Author Not at all 03/25/2025 10:21 AM Leatha Myers MA * Thoughts that you would be better off or hurting yourself in some way Answer Date of Assessment Author Not at all 03/25/2025 10:21 AM Leatha Myers MA * Patient Health Questionnaire-9 Score Answer Date of Assessment Author 8 03/25/2025 10:21 AM Leatha Myers MA * How difficult have these problems made it for you to do your work, take care of things at home, or get along with other people? Answer Date of Assessment Author Somewhat difficult 03/25/2025 10:21 AM EDT Mya Conklin MA documented as of this encounter Progress Notes * Nhung Bearden MD - 03/25/2025 10:00 AM EDT SUBJECTIVE Howard Carson is a 59 y.o. male who presents for No chief complaint on file.. HPI Admitted at [facility] from 02/25/25 to 02/27/25 w/ Treated w/ IV vanco and ceftriaxone, transition to cefazolin. Patient improved clinically. Discharged on cephalexin oral to continue for 8 days. Completed a total of 10 days of antibiotics. Labs: BMP unremarkable. CBC: Leukocytosis at 12.5. Lactate 0.9. Blood culture: No growth noted in the EHR. MRSA screen negative. Patient was also complaining of shortness of breath on exertion. Echocardiogram showed ejection fraction of 55 to 60% with grade 1 mild diastolic dysfunction. No regional left ventricular wall motionabnormality. No evidence of pulmonary hypertension. Trace mitral and tricuspid insufficiency. Mildly thickened aortic valve leaflets. Normal right ventricular systolic function. Mild concentric left ventricular hypertrophy. Treated with Lasix 20 mg daily for 4 more days outpatient. It was recommended to consider an outpatient cardiology evaluation. Advised to continue with daily weight monitoringand sodium restricted diet. The referral to cardiology was already generated on February 13, 2025. Regarding his history of stasis dermatitis and bilateral lower limb swelling, Mr. Howard Carson has tried wearing compression stockings which he feels makes his legs get more swollen. Patient was also concerned today about the results of his most recent prostate biopsy. 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 He has a scheduled follow-up appointment after this visit with his urologist Problem List[1] Allergies[2] Medications Ordered Prior to Encounter[3] Review of Systems Constitutional: Negative for appetite change, chills and diaphoresis. Respiratory: Negative for cough, choking and chest tightness. Cardiovascular: Positive for leg swelling. Gastrointestinal: Negative for anal bleeding, blood in stool and constipation. Musculoskeletal: Negative for gait problem, joint swelling and myalgias. Skin: Positive for rash. OBJECTIVE Vitals: 03/25/25 0935 BP: 104/66 BP Location: Left arm Patient Position: Sitting BP Cuff Size: Adult long Pulse: 60 Resp: 20 SpO2: 97% Weight: 219 lb (99.3 kg) Height: 5' 6.54 (1.69 m) Physical Exam Constitutional: General: He is not in acute distress. Appearance: Normal appearance. He is obese. He is not ill-appearing, toxic- appearing or diaphoretic. Skin: Comments: 1) ill-defined multiple polygonal erythematous and dry patches of the legs bilaterally Neurological: Mental Status: He is alert. Assessment/Plan Assessment/Plan Diagnoses and all orders for this visit: Venous stasis dermatitis Comments: Leg elevation Vascular surgery evaluation for further management. Orders: - triamcinolone (Kenalog) 0.1 % ointment; Apply topically 2 times daily. Essential hypertension Comments: Blood pressure is currently acceptable No acute intervention Cardiology evaluation. SOB (shortness of breath) Comments: Already have a referral to cardiology. Urged to keep that appointment. Diastolic dysfunction Comments: As above. Other depression - Referral to Behavioral Health; Future Given his multiple medical conditions, Mr. Howard Carson will need 2 days of a week to attend his appointments with either his primary care provider and his specialist for treatments. His FMLA form will be signed out for him. [1] Patient Active Problem List Diagnosis Nocturia Low back pain, unspecified History of right inguinal hernia repair History of lumbar laminectomy Hematuria Essential hypertension Epigastric pain Constipation Class 1 obesity Bacterial sinusitis Asthma, mild intermittent Acid reflux Iliotibial band syndrome of left side SI (sacroiliac) joint dysfunction Piriformis syndrome of left side Umbilical hernia without obstruction and without gangrene Right lateral epicondylitis Postinflammatory hyperpigmentation Acute non intractable tension-type headache Abnormal EKG SOB (shortness of breath) Cellulitis of lower extremity Venous stasis dermatitis [2] No Known Allergies [3] Current Outpatient Medications on File Prior to Visit Medication Sig Dispense Refill albuterol 108 (90 Base) MCG/ACT inhaler Inhale 2 puffs every 4 (four) hours if needed for wheezing or shortness of breath. 18 g 5 azithromycin (Zithromax) 250 MG tablet Take 2 tablets (500 mg total) by mouth 1 (one) time each dayfor 1 day, THEN 1 tablet (250 mg total) 1 (one) time each day for 4 days betamethasone valerate (Valisone) 0.1 % ointment Apply topically if needed in the morning and at bedtime (dryness). 45 g 0 Blood Pressure kit 1 Units Once per day. 1 kit 0 cetirizine (ZyrTEC) 10 MG tablet Take 1 tablet (10 mg) by mouth Once per day. 30 tablet 11 fluticasone furoate (Arnuity Ellipta) 100 MCG/ACT inhaler Inhale 1 puff Once per day. Rinse mouth with water after use to reduce aftertaste and incidence of candidiasis. Do not swallow. 1 each 5 hydroCHLOROthiazide (HYDRODiuril) 25 MG tablet Take 1 tablet (25 mg) by mouth Once per day. PLEASE DISCONTINUE AMLODIPINE 30 tablet 2 Ketotifen Fumarate 0.035 % solution Administer 1 drop into affected eye(s) 2 times daily. 10 mL 0 Spacer/Aero-Holding Chambers (OptiChamber Torri) misc 1 each every 4 (four) hours if needed (asthma). 1 each 0 tiZANidine (Zanaflex) 2 MG capsule Take 1 capsule (2 mg) by mouth every 8 (eight) hours if needed for muscle spasms. 90 capsule 1 No current facility-administered medications on file prior to visit. documented in this encounter Plan of Treatment Upcoming Encounters Date Type Department Care Team (Late st Contact Info) Description 04/27/2025 9:30 AM EST Office Visit [facility] MED & PEDS [address] [place] [address] Nhung Bearden MD [address] [place] [address] documented as of this encounter Visit Diagnoses Diagnosis Venous stasis dermatitis- Primary Essential hypertension Unspecified essential hypertension SOB (shortness of breath) Shortness of breath Diastolic dysfunction Unspecified heart disease Other depression documented in this encounter Additional Health Concerns Assessment Noted Time PHQ-9 Depression Total Score: 8 03/25/20 25 10:21 AM EDT documented as of this encounter Care Teams Hrbp Relationship Specialty Start Date End Date Marleen Jovel MD [address] [place] [id number] PCP - General Family Medicine 10/28/23 documented as of this encounter
--- NOTE | 2025-03-25 14:59 | A.OFFVIS_ITS ---
Intake Visit Reasons: Prostate biospy results Intake Note: Patient is present for PROSTATE Bx RESULTS Urology Medication:BETAMETHASONE Antibiotic Allergy:NONE Blood Thinner:NONE Tailor Apprentice Required: No Accompanied by: Self / Same As Patient Allergies No Known Allergies Allergy (Verified 03/25/25 15:00) HPI Comments Details: Howard is a pleasant Latvian-speaking male. He is a patient of Dr. Jovel. He is seen for the following urologic conditions - prostate cancer Telemedicine Evaluation 15 min Consultation Vend Willa Video Latvian translation provided by qualified biomedical engineering technician Low volume prostate cancer Plan MRI Start finasteride 8 week follow-up Prostate cancer 03/18 - grade group 1, low volume TRUS volume 60 cc PT1c Leslee 3 + 3 4 cores out of 12 PSA 5.4 Histologic grade: Georgiana score: 3+3=6 (right base lateral 16%, right mid lateral 55%, right mid medial 10%, right apex lateral 12%) Grade group: 1 Tumor quantitation: Number cores positive: 4 Total number of cores: 12 % of tissue involved: See above for details Periprostatic fat inv.: Not identified Seminal vesicle inv.: Not identified Perineural inv.: Not identified LVI: Not identified Plan prostate MRI Prolaris genetics Start finasteride PFSH Medical History Abnormal EKG Arthritis Back pain Scoliosis Habitual snoring Bronchitis Asthma Nocturia GERD (gastroesophageal reflux disease) HTN (hypertension) Surgical History History of umbilical hernia repair (08/17/24) History of appendectomy H/O hand surgery Hx of hernia repair Hx of release of tendon Hx of bilateral inguinal hernia repair Social History Are you a primary child care development specialist to a significant other at home: No Do you presently have visiting nurse or other home services: No Alcohol intake: current Alcohol intake frequency: a few times a week Patient Tobacco Use Status: Never used Tobacco Review of Systems Const All systems reviewed & are unremarkable except as noted in HPI and below Reports no additional complaints Resp Reports no additional complaints GI Reports no additional complaints Reports as per HPI Musc Reports no additional complaints Physical Exam Telemedicine evaluation Appropriate responses Regular breathing rate and rhythm HEENT Head: Yes normal to inspection Ears: hearing grossly normal bilaterally Eyes General: appearance normal, both eyes and all related structures Neck Neck: Yes normal visual inspection Chest Chest palpation & inspection: normal inspection of the chest Resp Effort & Inspection: normal respiratory effort and able to speak in complete sentences Telehealth Telehealth Telehealth Platform: Vend Location of provider rendering services: practice address Location of patient: address on file Patient Identification confirmed using: Name, : Yes Telehealth method: video Patient verbally consented to treatment: Yes Patient verbally consented to billing insurance company: Yes Patient informed of any privacy concerns related to visit: Yes Minutes spent on Phone/Video with Pt.: 15 Assessment & Plan Assessment & Plan (1) Hormone sensitive prostate cancer: Code(s): C61 - Malignant neoplasm of prostate; Z19.1 - Hormone sensitive malignancy status Category: Medical Plan Six-month follow-up MRI Start dutasteride 8 week follow-up office Orders: Orders MR Prostate wo/w con 6 Weeks C61 - Malignant neoplasm of prostate, Z19.1 - Hormone sensitive malignancy status Medications: New 2 dutasteride 0.5 mg PO DAILY 90 caps 1RF 90 days C61 - Malignant neoplasm of prostate, Z19.1 - Hormone sensitive malignancy status Patient Instructions: This note is constructed using voice recognition software. While every effort has been made to ensure accuracy rivet maker errors may have been included. Imaging studies, laboratory and physical exam results were discussed and reviewed in detail. No major barriers to patient understanding were identified. An opportunity to ask questions regarding the treatment plan was provided. All questions were answered. The patient expressed understanding and agreement with the above treatment plan. The patient is aware they should contact our office by phone for worsening of their current condition or the appearance of new urologic symptoms. Compliance is encouraged with any medications and followup testing that is ordered. It is a privilege to participate in the urologic care of your patient. If you have any questions or concerns regarding treatment for the above conditions, or other urologic issues, please do not hesitate to contact me. The office tele phone contact is [phone]. Sincerely, Dr Aravind Wilkins MD, [facility] - Urology Compassionate Specialist Care for the Genitourinary System Coding Level of Care Code Tele Est Pt Level 4 (78622) Complex EM visit Add On G2211 Diagnoses Hormone sensitive prostate cancer C61; Z19.1
--- OUTSIDE RECORDS SUMMARY | 2025-03-25 16:25 | XMS_ITS | Encounter Summary ---
Author Organization [employer] Address [address] [facility] [place] [address] Care Team Providers Care Dish Room Worker Name Role Phone Marleen Jovel MD Primary Care Provider [phone] Encounter Details Date Type Department Care Team (Latest Contact Info) Description 02/12/2025 Results Follow-Up [facility] [address] [place] [address] [id number] Tru Lomeli MD [address] [place] [address] Comprehensive Metabolic Panel, B Type Natriuretic Peptide [...] Description 04/27/2025 9:30 AM EST Office Visit [facility] & PEDS [address] [place] [address] Nhung Bearden MD [address] [place] [address] documented as of this encounter Visit Diagnoses Not on filedocumented in this encounter Additional Health Concerns Assessment Noted Time PHQ-9 Depression Total Score: 0 10/28/19 9:20 AM EDT documented as of this encounter Care Teams Dish Room Worker Relationship Specialty Start Date End Date Marleen Jovel MD [address] [place] [id number] PCP - General Family Medicine 10/28/23 documented as of this encounter
--- OUTSIDE RECORDS SUMMARY | 2025-03-25 16:26 | XMS_ITS | Encounter Summary ---
Author Organization [employer] Address [address] [facility] [address] [place] [address] Care Team Providers Care Wire Preparation Machine Tender Name Role Phone Marleen Jovel MD Primary Care Provider [phone] Reason for Visit * Reason Onset Date Comments Chart Prep 03/24/2025 Encounter Details Date Type Department Care Team ([facility] st Contact Info) Description 03/24/2025 Telephone [facility] [address] [place], [place] [phone] Marleen Jovel MD [address] [place] [address] Chart Prep Social History Tobacco Use Types Packs/Day Years [...] encounter Miscellaneous Notes * Telephone Encounter - Donna Jackson MA - 03/24/2025 9:43 AM EDT Chart Prep Labs: not applicable Images: not applicable Referrals: appointment pending Vaccines due: Covid, Flu, PCV20, Tdap, Hep B, and RSV Screenings: colonoscopy Overdue care gaps: SBIRT, SDOH, PHQ-9, Oral health screening, Disability screen, and Tobacco documented in this encounter Plan of Treatment Upcoming Encounters Date Type Department Care Team (Late st Contact Info) Description 04/27/2025 9:30 AM EST Office Visit [facility] MED & PEDS [address] [place] [address] Nhung Bearden MD [address] [place] [address] documented as of this encounter Visit Diagnoses Not on filedocumented in this encounter Additional Health Concerns Assessment Noted Time PHQ-9 Depression Total Score: 0 10/28/19 24 9:20 AM EDT documented as of this encounter Care Teams Wire Preparation Machine Tender Relationship Specialty Start Date End Date Marleen Jovel MD [address] [place] [id number] PCP - General Family Medicine 10/28/23 documented as of this encounter
--- OUTSIDE RECORDS SUMMARY | 2025-03-25 16:26 | XMS_ITS | Clinical Summary ---
Author Organization [email or web address] Address [address] [facility] [address] [place] [address] Care Team Providers Care Production Packager Name Role Phone Marleen Jovel MD Primary Care Provider [phone] Allergies No known active allergies Medications tiZANidine (Zanaflex) 2 MG capsule Take 1 capsule (2 mg) by mouth every 8 (eight) hours if needed for muscle spasms. 90 capsule 1 Active Blood Pressure kit 1 Units Once per day. 1 kit 024 Active betamethasone valerate (Valisone) 0.1 % ointment Apply topically if needed in the morning and at bedtime (dryness). 45 g 024 Active cetirizine (ZyrTEC) 10 MG tabletIndications :Rhinosinusitis,A [...] wheezing or shortness of breath. 18 g 025 2025 Active fluticasone furoate (Arnuity Ellipta) 100 MCG/ACT inhalerIndication s:Rhinosinusitis Inhale 1 puff Once per day. Rinse mouth with water after use to reduce aftertaste and incidence of candidiasis. Do not swallow. 1 each 025 2025 Active Spacer/Aero-Holdi ng Chambers (OptiChamber Torri) misc 1 each every 4 (four) hours if needed (asthma). 1 each Active hydroCHLOROthiazi de (HYDRODiuril) 25 MG tabletIndications :Bilateral leg edema,Essential hypertension Take 1 tablet (25 mg) by mouth Once per day. PLEASE DISCONTINUE AMLODIPINE 30 tablet 2 025 2024 Active azithromycin (Zithromax) 250 MG tablet Take 2 tablets (500 mg total) by mouth 1 (one) time each day for 1 day, THEN 1 tablet (250 mg total) 1 (one) time each day for 4 days 025 2024 Active triamcinolone (Kenalog) 0.1 % ointmentIndicatio ns:Venous stasis dermatitis Apply topically 2 times daily. 30 g Active cetirizine (ZyrTEC) 10 MG tablet Take 1 tablet (10 mg) by mouth Once per day. 90 tablet 1 024 2024 Discontinued cholecalciferol (Vitamin D-3) 50 MCG (1999 UT) capsule Take 1 capsule (50 mcg) by mouth Once per day. 120 capsule 3 024 2024 Discontinued tamsulosin (Flomax) 0.4 MG 24 hr capsule Take 1 capsule (0.4 mg) by mouth Once per day. 30 capsule 2 024 2024 Discontinued amLODIPine (Norvasc) 5 MG tablet TAKE 1 TABLET (5 MG) BY MOUTH ONCE PER DAY. 90 tablet 1 025 2024 Discontinued furosemide (Lasix) 20 MG tabletIndications :Pedal edema Take 1 tablet (20 mg) by mouth Once per day for 7 days. 7 tablet 025 2024 Discontinued(R eorder (will not trigger notification to Pharmacy)) furosemide (Lasix) 20 MG tabletIndications :Pedal edema Take 1 tablet (20 mg) by mouth Once per day for 7 days. 7 tablet 025 2024 Discontinued Active Problems Problem Noted Date Diagnosed [...] referral in the system. Will send to [facility]. Please attach media from ECG done in [...] Encounters Date Type Department Care Team Description 03/25/2025 10:00 AM EDT Office Visit [facility] [address] [place] [address] Nhung Bearden MD Venous stasis dermatitis (Primary Dx); Essential hypertension; SOB (shortness of breath); Diastolic dysfunction; Other depression 03/25/2025 Travel 03/24/2025 Telephone [facility] [address] [place] [address] Marleen Jovel MD Chart Prep 03/22/2025 Orders Only [facility] [address] [place] [address] Wang Rubin MD 03/11/2025 11:00 AM EDT Office Visit [facility] [address] [place] [address] Tru Lomeli MD Bilateral leg edema (Primary Dx); Essential hypertension [I10] 03/11/2025 Telephone [facility] [address] [place] [phone] Tru Lomeli MD 03/11/2025 Travel 03/09/2025 Orders Only GENERIC EXTERNAL DATA DEPARTMENT Provider, Generic External Data 03/03/2025 3:40 PM EDT Office Visit [facility] [address] [place] [address] Nhung Bearden MD Bilateral leg edema (Primary Dx); Venous stasis dermatitis; Pedal edema; Mild diastolic dysfunction 03/03/2025 Travel 03/02/2025 Telephone [facility] [address] [place] [address] Marleen Jovel MD Appointment Request 03/01/2025 Telephone [facility] [address] [place] [address] Nhung Bearden MD No Show 02/16/2025 10:00 AM EDT Office Visit [facility] [address] [address] Noel Conn MD Cellulitis of right leg (Primary Dx); Cellulitis of left leg; Lower extremity edema; Dyspnea on exertion; Rhinosinusitis 02/16/2025 Orders Only GENERIC EXTERNAL DATA DEPARTMENT Provider, Generic External Data 02/16/[address] [address] Kimmy Ndiaye, CUSTOMER DEVELOPMENT MANAGER Expect 02/16/[address] [address] Kimmy Ndiaye, RN Nurse Triage 02/12/2025 8:40 AM EDT Office Visit [facility] [address] [address] Tru Lomeli MD Pedal edema (Primary Dx) 02/12/2025 Results Follow-Up [facility] [address] [address] Tru Lomeli MD Comprehensive Metabolic Panel, B Type Natriuretic Peptide (BNP), CBC auto differential 02/12/2025 Orders Only GENERIC EXTERNAL DATA DEPARTMENT Provider, Generic External Data 02/12/2025 Travel 12/28/2024 Orders Only [facility] External Provider, [facility] from Last 3 Months Immunizations Immunization Administration [...] Pulse 60 03/25/2025 9:35 AM EDT Temperature 36.7 C (98.1 F) 03/11/2025 10:56 AM EDT Respiratory Rate 20 03/25/2025 9:35 AM EDT Oxygen Saturation 97% 03/25/2025 9:35 AM EDT Inhaled Oxygen Concentration - - Weight 99.3 kg (219 lb) 03/25/2025 9:35 AM EDT Height 169 cm (5' 6.54 ) 03/25/2025 9:35 AM EDT Body Mass Index 34.78 03/25/2025 9:35 AM EDT Plan of Treatment Upcoming Encounters Date Type Department Care Team (Late st Contact Info) Description 04/27/2025 9:30 AM EST Office Visit [facility] [address] [place] [address] Nhung Bearden MD [address] [place] [address] Health Maintenance Due Date Last Done Comments CT Colonography 1965 Colonoscopy 1965 Colorectal Cancer Screening 1965 FIT DNA/Cologuard 1965 FIT 1965 FOBT 1965 Sigmoidoscopy 1965 DTaP/Tdap/Td Vaccines (1 - Tdap) 1983 Pneumococcal Vaccine: 50+ Years (1 of 2 - PCV) 1983 RSV Patients and Patients Aged 60 years or older (1 - Risk 60-74 years 1-dose series) 2024 Hepatitis B Vaccines (3 of 3 - 19+ 3-dose series) 05/22/2024 12/18/2023, 11/20/2023 COVID-19 Vaccine (3 - 2024- season) 2025 01/07/2021, 12/17/2020 Influenza Vaccine (#1) 2025 , 06/01/2022, 04/01/2018, Additional history exists Alcohol/Substance Use Screening 03/25/2026 03/25/2025 Depression Screening 03/25/2026 03/25/2025, 03/25/20 Disability Screening 03/25/2026 03/25/2025 SDOH Screening 03/25/2026 03/25/2025 Tobacco Screening 03/25/2026 03/25/2025 Lipid Panel 10/27/2028 10/28/2023 HIV Screening Completed [...] Date/Time Associated Diagnosis Comments ECG 12-LEAD Routine 03/21/2025 9:[address] CHEST ANGIO W AND WO IV CONTRAST Routine 03/21/2025 8:53 AM EDT PROSTATE BIOPSY 1-20 Routine 03/09/2025 8:25 AM EDT VASC US LOWER EXTREMITY VENOUS DUPLEX BILATERAL [...] Health Maintenance Results * ECG 12 lead (03/21/2025 9:02 AM EDT) us Historical Provider ECG ORDERABLES Final Res ult * CT CHEST ANGIO W AND WO IV CONTRAST (03/21/2025 8:53 AM EDT) Anatomical Region Laterality Modality Computed Tomogra phy us Historical Provider IMG CT PROCEDURES Final R esult * Prostate biopsy 1-20 (03/09/2025 8:25 AM EDT) 03/09/2025 8:25 AM EDT 03/09/2025 10:30 AM EDT Narrative [facility] - 03/11/2025 12:06 PM EDT ----- ------- Name: Alli OrtizHoward Age/Sex: 59/M : 1965 Unit#: [id number] Attend Dr: Aravind Wilkins MD Re03/09/25 Status: [facility] REF Location: [facility] Disch: ----- ------- SPEC : [id number] RECD: 03/09/25-1029 STATUS: ADDY SUTTON NUM: [id number] KIET: 03/09/25 [facility] DR: Aravind Wilkins MD ENTERED: 03/09/256577 SP TYPE: Surgical OTHR DR: Marleen Jovel MD ORDERED: Prostate biopsy Diagnosis A. Prostate, left base lateral, core biopsy: Benign prostatic tissue. B. Prostate, left base medial, core biopsy: Benign prostatic tissue. C. Prostate, left mid lateral, core biopsy: Benign prostatic tissue. D. Prostate, left mid medial, core biopsy: Benign prostatic tissue. E. Prostate, left apex lateral, core biopsy: Benign prostatic tissue. F. Prostate, left apex medial, core biopsy: Benign prostatic tissue. G. Prostate, right base lateral, core biopsy: Prostatic adenocarcinoma, Chesnee score 3+3=6 (Grade group 1) involving 16% of the tissue core. H. Prostate, right base medial, core biopsy: Benign prostatic tissue. I. Prostate, right mid lateral, core biopsy: Prostatic adenocarcinoma, Leslee score 3+3=6 (Grade group 1) involving 55% of the tissue core. J. Prostate, right mid medial, core biopsy: Prostatic adenocarcinoma, Chesnee score 3+3=6 (Grade group 1) involving 10% of the tissue core. K. Prostate, right apex lateral, core biopsy: Prostatic adenocarcinoma, Leslee score 3+3=6 (Grade group 1) involving 12% of the tissue core. L. Prostate, right apex medial, core biopsy: Benign prostatic tissue. Data synopsis - Prostate needle biopsy Histologic type: Acinar adenocarcinoma Histologic grade: Leslee score: 3+3=6 (G, I, J, K) % of pattern 4: N/A % of pattern 5: N/A Grade group: 1 Tumor quantitation: Number cores positive: 4 Total number of cores: 12 % of tissue involved: See above for details Periprostatic fat inv.: Not identified Seminal vesicle inv.: Not identified Perineural inv.: Not identified LVI: Not identified Clinical History Elevated prostate specific antigen (PSA) CONTINUED ON NEXT PAGE ----- ------- Name: Howard Junior Age/Sex: 59/M : 1965 [facility]#: [id number] Unit#: [id number] Attend Dr: Aravind Wilkins MD Re03/09/25 Status: [facility] REF Location: [facility] Disch: ----- ------- SPEC : [id number] RECD: 03/09/25 STATUS: ADDY SUTTON NUM: [id number] KIET: 03/09/25 [facility] DR: Aravind Wilkins MD ENTERED: 03/09/25-1108 SP TYPE: Surgical OTHR DR: Marleen Jovel MD ORDERED: Prostate biopsy Microscopic Description Microscopic sections reviewed. Material Received A: Left base lateral B: Left base medial C: Left mid lateral D: Left mid medial E: Left apex lateral F: Left apex medial G: Right base lateral H: Right base medial I: Right mid lateral J: Right mid medial K: Right apex lateral L: Right apex medial Gross Description Received in twelve parts. Part A: Received in formalin labeled left base lateral is a 1.6 cm in length thin and delicate mccloud-jackson cylindrical thread of tissue, submitted in toto in a cassette labeled A. Part B: Received in formalin labeled left base medial are two thin and delicate mccloud-jackson cylindrical threads of tissue measuring 0.6 and 1.3 cm, submitted in toto in a cassette labeled B. Part C: Received in formalin labeled left mid lateral is a 1.5 cm in length thin and delicate mccloud-white cylindrical thread of tissue, submitted in toto in a cassette labeled C. Part D: Received in formalin labeled left mid medial is a 1.1 cm in length thin and delicate mccloud-white cylindrical thread of tissue, submitted in toto in a cassette labeled D. Part E: Received in formalin labeled left apex lateral is a 0.7 cm in length thin and delicate mccloud-white cylindrical thread of tissue, submitted in toto in a cassette labeled E. Part F: Received in formalin labeled left apex medial is a 1.3 cm in length thin and delicate mccloud-white cylindrical thread of tissue, submitted in toto in a cassette labeled F. CONTINUED ON NEXT PAGE ----- ------- Name: Alli OrtizHoward Age/Sex: 59/M : 1965 Unit#: [id number] Attend Dr: Aravind Wilkins MD Re03/09/25 Status: [facility] REF Location: [facility] Disch: ----- ------- SPEC : [id number] RECD: 03/09/25-0 STATUS: ADDY SUTTON NUM: [id number] KIET: 03/09/25 [facility] DR: Aravind Wilkins MD ENTERED: 03/09/25-3685 SP TYPE: Surgical OTHR DR: Marleen Jovel MD ORDERED: Prostate biopsy Gross Description (Continued) Part G: Received in formalin labeled right base lateral are two thin and delicate mccloud- white cylindrical threads of tissue measuring 0.6 and 1.0 cm in length, submitted in toto in a cassette labeled G. Part H: Received in formalin labeled right base medial is a 2.0 cm in length thin and delicate mccloud-white cylindrical thread of tissue, submitted in toto in a cassette labeled H. Part I: Received in formalin labeled right mid lateral is a 1.2 cm in length thin and delicate mccloud-white cylindrical thread of tissue, submitted in toto in a cassette labeled I. Part J: Received in formalin labeled right mid medial is a 1.6 cm in length thin and delicate mccloud-white cylindrical thread of tissue, submitted in toto in a cassette labeled J. Part K: Received in formalin labeled right apex lateral is a 1.5 cm in length thin and delicate mccloud-white cylindrical thread of tissue, submitted in toto in a cassette labeled K. Part L: Received in formalin labeled right apex medial is a 1.5 cm in length thin and delicate mccloud-white cylindrical thread of tissue, submitted in toto in a cassette labeled L. CEDS This case was reviewed intradepartmentally. IHC S/NG Disclaimer NOTE: Unless otherwise stated, all tissue is formalin-fixed and paraffin-embedded. Some or all of the immunohistochemical tests reported herein may have been developed and their performance characteristics determined by [facility]. They have not been cleared or approved by the U.S. Food and Drug Administration (FDA). However, the FDA has determined that such clearance or approval is not necessary. This laboratory is certified under the Clinical Laboratory Improvement Amendments of 1988 (CLIA) as qualified to perform high complexity clinical laboratory testing. Copies To: Aravind Wilkins MD [facility] [address] [place] [address] CONTINUED ON NEXT PAGE ----- ------- Name: Howard Junior Age/Sex: 59/M : 1965 Unit#: [id number] Attend Dr: Aravind Wilkins MD Re03/09/25 Status: DEP REF Location: [facility] Disch: ----- ------- SPEC : [id number] RECD: 03/09/25 STATUS: ADDY SUTTON NUM: [id number] KIET: 03/09/25 [facility] DR: Aravind Wilkins MD ENTERED: 03/09/25 SP TYPE: Surgical OTHR DR: Marleen Jovel MD ORDERED: Prostate biopsy Copies To: (Continued) Marleen Jovel MD [address] [place] [address] ----- ------- Signed (signature on file) Annalee Mazariegos MD 03/11/25 0426 ----- ------- END OF REPORT us Generic External Data Provider LAB PATHOLOGY ORD ERABLES Final Result [facility] [address] [place] [address] [phone] * [facility] US Lower Extremity Venous Duplex Bilateral (02/16/2025 2:33 PM EDT) 02/16/2025 2:33 PM EDT Narrative [facility] - 02/16/2025 3:02 PM EDT [address] [address] Ultrasound Report Signed Patient: Howard Junior MR#: [id number] : 1965 Acct:[id number] Age/Sex: 59 / M ADM Date: 02/16/25 Loc: HO.ED Attending Dr: Ordering Physician: Fredy Villalobos Date of Service: 02/16/25 Procedure(s): US venous duplex LE BI Accession Number(s): [id number] cc: Fredy Villalobos; Marleen Jovel MD EXAMINATION: [...] Blandon MD Signed By: <Electronically signed by Aleaxndro Blandon MD in OV> 02/16/25 1500 DD/ 1433 TD/TT: 02/16/25 1447 Flosser: Procedure Note Donotuseinterpreter, Image - 02/16/[address] [address] Ultrasound Report Signed Patient: Howard JuniorMR#: [id number] : 1965Acct:[id number] Age/Sex: 59 / MADM Date: 02/16/25 Loc: HO.ED Attending Dr: Ordering Physician: Fredy Villalobos Date of Service: 02/16/25 Procedure(s): US venous duplex LE BI Accession Number(s): [id number] cc: Fredy Villalobos; Marleen Jovel MD EXAMINATION: [...] 02/16/25 1500 DD/ 1433 TD/TT: 02/16/25 1447 Flosser: [facility] External Provider CV VASC ULAR PROCEDURES Final Result [facility] [address] [place] [phone] * (ABNORMAL) CBC auto differential (02/16/2025 1:14 PM EDT) Only the most recent of2 resultswithin the time period is included. White Blood Count 6.7 4.8 - 10.8 X10*3/uL [facility] Red Blood Count 4.53(L) 4.60 - 5.80 X10*6/uL [facility] Hemoglobin 14.6 14.0 - 18.0 g/dl [facility] Hematocrit 43.2 42.0 - 52.0 % [facility] Mean Corpuscular Volume 95.4 80.0 - 98.0 fL [facility] Mean Corpuscular Hemoglobin 32.2 27.0 - 33.0 pg [facility] Mean Corpuscular HGB Conc 33.8 31.0 - 36.0 g/dl [facility] Red Cell Distribution Width 12.9 11.0 - 16.0 % [facility] Platelet Count 188 160 - 400 X10*3/uL [facility] Mean Platelet Volume 10.1 9.4 - 12.4 fL [facility] Neutrophils Percent Auto 54.9 45 - 73 % [facility] Imm Gran Pct Auto 0.3 0.0 - 0.4 % [facility] Lymphocytes Percent Auto 30.5 20 - 40 % [facility] Monocytes Percent Auto 11.1(H) 2 - 11 % [facility] Eosinophils Percent Auto 2.8 0 - 4 % [facility] Basophils Percent Auto 0.4 0 - 2 % [facility] NRBC Pct Auto 0.0 0.0 - 0.2 /100WBC [facility] Neutrophils Absolute Auto 3.7 2.0 - 8.3 x10*3/uL [facility] Imm Gran Abs Auto 0.02 0.00 - 0.03 X10*3/uL [facility] Lymphocytes Absolute Auto 2.0 1.2 - 4.9 X10*3/uL [facility] Monocytes Absolute Auto 0.7 0.1 - 1.2 X10*3/uL [facility] Eosinophils Absolute Auto 0.2 0.0 - 0.4 X10*3/uL [facility] Basophils Absolute Auto 0.0 0.0 - 0.2 X10*3/uL [facility] NRBC Abs Auto 0.000 0.0 - 0.012 X10*3/uL [facility] 02/16/2025 1:14 PM EDT 02/16/2025 1:16 PM EDT us Generic External Data Provider LAB BLOOD ORDERAB LES Final Result [facility] [address] [place] [address] [phone] * Sed Rate by Modified Westergren (02/16/2025 1:14 PM EDT) Pathologist [facility] Erythrocyte Sedimentation Rate 13 0 - 15 MM/HR [facility] Comment:Patients with polycy themia and many hemoglobin abnormalitiesmay have depressed sed rates whereas patients with anemiamay have elevated sed rates. 02/16/2025 1:14 PM EDT 02/16/2025 1:16 PM EDT Generic External Data Provider LAB BLOOD ORDERAB LES Final Result Performing Organization Address [facility]/ZIP Co de Phone Number [facility] [address] [place] [phone] * (ABNORMAL) C-reactive Protein (02/16/2025 1:14 PM EDT) Pathologist [facility] C Reactive Protein 1.09(H) < or = 0.50 mg/dL [facility] 02/16/2025 1:14 PM EDT 02/16/2025 1:16 PM EDT [employer] External Data Provider LAB BLOOD ORDERAB LES Final Result Performing Organization Address [facility] Co de Phone Number [facility] [address] [place] [phone] * Comprehensive Metabolic Panel (02/16/2025 1:14 PM EDT) Only the most recent of2 resultswithin the time period is included. Pathologist [facility] Sodium 141 135 - 145 mmol/L [facility] Potassium 3.7 3.3 - 5.1 mmol/L [facility] Chloride 106 96 - 108 mmol/L [facility] Carbon Dioxide 27 22 - 29 mmol/L [facility] Anion Gap 12 12 - 20 [facility] Urea Nitrogen (BUN) 14 9 - 16 mg/dL [facility] Creatinine, Serum 0.91 0.5 - 1.4 mg/dL [facility] Creatinine Clr Calc Pharmacy 96.0 [facility] Comment:eGFR (calculated fro m the MDRD study equation) and eCrCl(calculated from the Cockcroft-Gault equation) are based ondifferent parameters and may not yield comparable results.If eCrCl result is absurd, please check patient'sheight/weight. Estimated Glomerular Filt Rate >60 [facility] Comment:Chronic Kidney Disea se: Estimated GFR < 60 mL/min/1.65e1Sddsgs Kidney Disease: Estimated GFR < 15 mL/min/1.73m2 Glucose 87 60 - 115 mg/dL [facility] Calcium 9.1 8.4 - 10.2 mg/dL [facility] Bilirubin, Total 0.4 0.0 - 1.0 mg/dL [facility] Aspartate Amino Transferase 23 5 - 37 U/L [facility] Alanine Aminotransferase 30 0 - 40 U/L [facility] Total Protein 7.1 6.5 - 8.0 g/dL [facility] Albumin Level 4.3 3.5 - 5.0 g/dL [facility] Alkaline Phosphatase 84 39 - 117 U/L [facility] 02/16/2025 1:14 PM EDT 02/16/2025 1:16 PM EDT us Generic External Data Provider LAB BLOOD ORDERAB LES Final Result [facility] [address] [place] [phone] * XR TIBIA FIBULA 2 VW BILATERAL (02/16/2025 12:35 PM EDT) Anatomical Region Laterality Modality Radiographic Vernell ging 02/16/2025 12:3 5 PM EDT Narrative 02/16/2025 1:46 PM EDT [address] [address] XRay Report Signed Patient: Howard Junior MR#: [id number] : 1965 Acct:[id number] Age/Sex: 59 / M ADM Date: 02/16/25 Loc: HO.ED Attending Dr: Ordering Physician: Fredy Villalobos Date of Service: 02/16/25 Procedure(s): XR Tibia Fibula Marty 2V Accession Number(s): [id number] cc: Fredy Villalobos; Marleen Jovel MD Exam: [...] 02/16/25 1344 DD/ 1235 TD/TT: 02/16/25 1335 Flosser: Procedure Note Donotuseinterpreter, Image - 02/16/2025 [place] [address] XRay Report Signed Patient: Howard JuniorMR#: [id number] : 1965Acct:[id number] Age/Sex: 59 / MADM Date: 02/16/25 Loc: HO.ED Attending Dr: Ordering Physician: Fredy Villalobos Date of Service: 02/16/25 Procedure(s): XR Tibia Fibula Marty 2V Accession Number(s): [id number] cc: Fredy Villalobos; Marleen Jovel MD Exam: [...] 02/16/25 1344 DD/ 1235 TD/TT: 02/16/25 1335 Flosser: [facility] External Provider IMG XR PROCEDURES Final Result * (ABNORMAL) PSA,Total (02/12/2025 10:08 AM EDT) Prostate Specific Antigen 5.41(H) <0.05 - 4.0 ng/mL [facility] Comment:PSA methodology: Stas Jackson i ChemiluminescentMicroparticle Immunoassay (CMIA) 02/12/2025 10:0 8 AM EDT 02/12/2025 11:51 AM EDT Generic External Data Provider LAB BLOOD ORDERAB LES Final Result Performing Organization Address [facility] Co de Phone Number [facility] [address] [place] [phone] * (ABNORMAL) B Type Natriuretic Peptide (BNP) (02/12/2025 10:08 AM EDT) B Type Natriuretic Peptide 133(H) <100 pg/mL [facility] Blood Venous blood specimen / Unknown 02/12/2025 10:08 AM EDT 02/12/2025 11:50 AM EDT Tru Lomeli MD LAB BLOOD ORDERABLES Final Resul t Performing Organization Address [facility] Co de Phone Number [facility] [address] [place] [phone] * XR Chest 2 Views (02/12/2025 8:28 AM EDT) Anatomical Region Laterality Modality Chest Radiographic Vernell ging 02/12/2025 8:28 AM EDT Narrative 02/12/2025 9:26 AM EDT [address] [address] XRay Report Signed Patient: Howard Junior MR#: [id number] : 1965 Acct:[id number] Age/Sex: 59 / M ADM Date: 02/12/25 Loc: HO.HHCX Attending Dr: Tru Lomeli MD Ordering Physician: Tru Lomeli MD Date of Service: 02/12/25 Procedure(s): XR chest 2V Accession Number(s): [id number] cc: Tru Lomeli MD EXAMINATION: XR CHEST [...] signed by Alexandro Blandon MD in OV> 02/12/2523 DD/ 7 TD/TT: 02/12/25914 Flosser: Procedure Note Donotuseinterpreter, Image - 02/12/[address] [address] XRay Report Signed Patient: Howard JuniorMR#: [id number] : 1965Acct:[id number] Age/Sex: 59 / MADM Date: 02/12/25 Loc: HO.HHCX Attending Dr: Tru Lomeli MD Ordering Physician: Tru Lomeli MD Date of Service: 02/12/25 Procedure(s): XR chest 2V Accession Number(s): [id number] cc: Tru Lomeli MD EXAMINATION: XR CHEST [...] MD in OV> 02/12/25922 DD/ 7 TD/TT: 02/12/25 0915 Flosser: Tru Lomeli MD IMG XR PROCEDURES Final Result * FL Esophagus Barium Swallow (12/28/2024 9:17 AM EDT) Anatomical Region Laterality Modality Head, Neck Radiographic Vernell ging 12/28/2024 9:17 AM EDT Narrative 12/28/2024 10:20 AM EDT [place] [address] Fluoroscopy Report Signed Patient: Howard [place] MR#: [id number] : 1965 Acct:[id number] Age/Sex: 59 / M ADM Date: 12/28/24 Loc: HO.XRAY Attending Dr: Zonia Gongora MD Ordering Physician: Zonia Gongora MD Date of Service: 12/28/24 Procedure(s): FL barium swallow Accession Number(s): [id number] cc: Marleen Jovel MD; Zonia Gongora MD [...] 12/28/24 1018 DD/ 0917 TD/TT: 12/28/24 0951 Flosser: [facility] Procedure Note Donotuseinterpreter, Image - 12/28/[address] [address] Fluoroscopy Report Signed Patient: Gu[place]#: [id number] : 1965Acct:[id number] Age/Sex: 59 / MADM Date: 12/28/24 Loc: HO.XRAY Attending Dr: Zonia Gongora MD Ordering Physician: Zonia Gongora MD Date of Service: 12/28/24 Procedure(s): FL barium swallow Accession Number(s): [id number] cc: Marleen Jovel MD; Zonia Gongora MD [...] 12/28/24 1018 DD/ 0917 TD/TT: 12/28/24 0951 Flosser: [facility] External Provider IMG FLU OROSCOPY PROCEDURES Final Result * Hepatitis C Antibody with Reflex to HCV, RNA, Quantitative, Real-Time PCR (10/28/2023 10:49 AM EDT) Hepatitis C Antibody Nonreactive Nonreactive [facility] Comment:Antibodies to HCV no t detected; does not exclude early acuteHCV infection. Blood Venous blood specimen / Unknown 10/28/2023 10:49 AM EDT 10/28/2023 2:07 PM EDT Marleen Jovel MD LAB BLOOD ORDERABLES Final Re sult Performing Organization Address City/[facility]/ZIP Co de Phone Number [facility] [address] [place] [address] [phone] * HIV-1/2 Antigen and Antibodies, Fourth Generation, with Reflexes (10/28/2023 10:49 AM EDT) Pathologist [facility] HIV AB/AG Nonreactive Nonreactive [facility] Comment:HIV-1 p24 Ag and/or HIV-1/HIV-2 Ab not detected.A test result that is nonreactive does not exclude thepossibility of exposure to or infection with HIV-1 and/orHIV-2. Nonreactive results in this assay for individualswith prior exposure to HIV-1 and/or HIV-2 may be due toantigen and antibody levels that are below the limit ofdetection of this assay.The [employer] HIV Ag/Ab Combo assay result andsupplemental assay results should be interpreted inconjunction with the patient's clinical presentation,history and other laboratory results. If the results areinconsistent with clinical evidence, additional testing issuggested to confirm the result. Blood Venous blood specimen / Unknown 10/28/2023 10:49 AM EDT 10/28/2023 2:07 PM EDT Marleen Jovel MD LAB BLOOD ORDERABLES Final Re sult Performing Organization Address City/[facility]/ZIP Co de Phone Number [facility] [address] [place] [address] [phone] * (ABNORMAL) Lipid Panel, Standard (10/28/2023 10:49 AM EDT) Triglycerides 62 <150 mg/dL [facility] Comment:Desirable Triglyceri de: less than 150 mg/dLBorderline High Triglyceride 150-199 mg/dLHigh Triglyceride: 200-499 mg/dLVery High Triglyceride: greater than or equal to 5OO mg/dL Cholesterol 174 <200 mg/dL [facility] Comment:Desirable Cholestero l: less than 200 mg/dLBorderline High Cholesterol: 200-239 mg/dLHigh Cholesterol: greater than 239 mg/dL LDL Cholesterol Calculated 107(H) <100 mg/dL [facility] Comment:Desirable LDL: less than 100 mg/dLNear Optimal/Above Optimal LDL: 110- 129 mg/dLBorderline High LDL: 130-159 mg/dLHigh LDL: 160-189 mg/dLVery High LDL: greater than or equal to 190 mg/dL HDL Cholesterol 55 >40 mg/dL [facility] Comment:Desirable HDL: great er than 40 mg/dL Note: This HDL assay may give artificially low results in patients with liver disease. Blood Venous blood specimen / Unknown 10/28/2023 10:49 AM EDT 10/28/2023 2:07 PM EDT us Marleen Jovel MD LAB BLOOD ORDERABLES Final Re sult [facility] [address] [place] [address] [phone] from Last 3 Months or Most Recently Relevant to Health Maintenance Insurance [facility] Care Teams Production Packager Relationship Specialty Start Date End Date Marleen Jovel MD [address] [place] [phone] PCP - General Family Medicine 10/28/23
--- OUTSIDE RECORDS SUMMARY | 2025-03-25 16:26 | XMS_ITS | Encounter Summary ---
Author Organization [employer] Address [address] [place] [address] Care Team Providers Care Oiler And Greaser Name Role Phone Marleen Jovel MD Primary Care Provider [phone] Encounter Details Date Type Department Care Team (Latest Contact Info) Description 03/25/2025 Travel Social History Tobacco Use Types Packs/Day [...] housing situation today? I have machelleramiro marte 03/25/[address] you [...] AM EST documented as of this encounter Functional Status * Over the [...] Not at all 03/25/2025 10:21 AM Leatha Meyrs MA * Moving or speaking so slowly [...] Author Not at all 03/25/2025 10:21 AM EDT Leatha Conklin MA * Patient Health Questionnaire-9 Score Answer Date of Assessment Author 8 03/25/2025 10:21 AM EDT Leatha Conklin MA * How difficult have these problems made it for you to do your work, take care of things at home, or get along with other people? Answer Date of Assessment Author Somewhat difficult 03/25/2025 10:21 AM EDT Mya Conklin MA documented as of this encounter Plan of Treatment Upcoming Encounters Date Type Department Care Team (Late st Contact Info) Description 04/27/2025 9:30 AM EST Office Visit [facility]S [address] [place] [address] Nhung Bearden MD [address] [place] [address] documented as of this encounter Visit Diagnoses Not on filedocumented in this encounter Additional Health Concerns Assessment Noted Time PHQ-9 Depression Total Score: 8 03/25/20 25 10:21 AM EDT documented as of this encounter Care Teams Oiler And Greaser Relationship Specialty Start Date End Date Marleen Jovel MD [address] [place] [phone] PCP - General Family Medicine 10/28/23 documented as of this encounter
--- OUTSIDE RECORDS SUMMARY | 2025-03-25 16:26 | XMS_ITS | Encounter Summary ---
Author Organization [employer] Address [address] [place] [address] Care Team Providers Care Piano Mover Name Role Phone Marleen Jovel MD Primary Care Provider [phone] Reason for Visit * Reason Comments Med Refill Encounter Details Date Type Department Care Team ([facility] st Contact Info) Description 07/31/2024 Refill [facility]EDS [address] [place], [place] [phone] Marleen Jovel MD [address] [place] [address] Social History Tobacco Use Types Packs/Day Years [...] Office Visit [facility]ED[facility] [address] [place] [address] Nhung Bearden MD [address] [place] [address] documented as of this encounter Visit Diagnoses Not on filedocumented in this encounter Additional Health Concerns Assessment Noted Time PHQ-9 Depression Total Score: 0 10/28/19 9:20 AM EDT documented as of this encounter Care Teams Piano Mover Relationship Specialty Start Date End Date Marleen Jovel MD [address] [place] [phone] PCP - General Family Medicine 10/28/23 documented as of this encounter
--- OUTSIDE RECORDS SUMMARY | 2025-03-25 16:26 | XMS_ITS | Encounter Summary ---
Author Organization [employer] Address [address] [place] [address] Care Team Providers Care Chrome Tanner Name Role Phone Marleen Jovel MD Primary Care Provider [phone] Encounter Details Date Type Department Care Team (Late st Contact Info) Description 10/05/2024 Orders Only [facility]S [address] [place] [address] Provider, MD Wang Social History Tobacco Use [...] Description 04/27/2025 9:30 AM EST Office Visit [facility] P[facility] [address] [place] [address] Nhnug Bearden MD [address] [place] [address] documented as of this encounter Procedures Procedure [...] documented as of this encounter Care Teams Chrome Tanner Relationship Specialty Start Date End Date Marleen Jovel MD [address] [place] [address] PCP - General Family Medicine 10/28/23 documented as of this encounter
--- OUTSIDE RECORDS SUMMARY | 2025-03-25 16:26 | XMS_ITS | Encounter Summary ---
Author Organization [employer] Address [address] [place] [address] Care Team Providers Care Certified Tumor Registrar Name Role Phone Marleen Jovel MD Primary Care Provider [phone] Encounter Details Date Type Department Care Team (Late st Contact Info) Description 03/22/2025 Orders Only [facility] PEDS [address] [place] [address] Provider, MD Wang Social History Tobacco Use [...] 10:21 AM EDT Leatha Conklin MA * Thoughts that you would be [...] Description 04/27/2025 9:30 AM EST Office Visit [facility] [address] [place] [address] Nhung Bearden MD [address] [place] [address] documented as of this encounter Procedures Procedure Name Priority Date/Time Associated Diagnosis Comments ECG 12-LEAD Routine 03/21/2025 9:[address] CHEST ANGIO W AND WO IV CONTRAST Routine 03/21/2025 8:53 AM EDT documented in this encounter Results * ECG 12 lead (03/21/2025 9:02 AM EDT) Historical Provider ECG ORDERABLES Final Res ult * CT CHEST ANGIO W AND WO IV CONTRAST (03/21/2025 8:53 AM EDT) Anatomical Region Laterality Modality Computed Tomogra phy Historical Provider IMG CT PROCEDURES Final R esult documented in this encounter Visit Diagnoses Not on filedocumented in this encounter Additional Health Concerns Assessment Noted Time PHQ-9 Depression Total Score: 0 10/28/19 24 9:20 AM EDT documented as of this encounter Care Teams Certified Tumor Registrar Relationship Specialty Start Date End Date Marleen Jovel MD [address] [place] [address] PCP - General Family Medicine 10/28/23 documented as of this encounter
--- OUTSIDE RECORDS SUMMARY | 2025-03-25 16:26 | XMS_ITS | Clinical Summary ---
Author Organization [facility] Address [address] [place] [address] Phone Care Team Providers Care Hand Flatwork Finisher Name Role Phone Marleen Jovel MD Primary Care Provider [phone] Allergies No known active allergies Medications albuterol [...] mg total) by mouth daily. 10/28/19 24 Active clobetasoL (TEMOVATE) 0.05 % ointment Apply 1 Application topically 2 (two) times a day. 10/28/19 25 Active fluticasone furoate (ARNUITY ELLIPTA) 100 mcg/actuation blister with device inhaler Inhale 1 puff by mouth daily. 02/17/20 25 026 Active ketotifen fumarate (ZADITOR) 0.035 % ophthalmic solution Administer 1 drop into affected eye(s) 2 times daily. 09/18/19 25 Active furosemide (LASIX) 20 mg tablet Take 1 tablet (20 mg total) by mouth 1 (one) time each day for 4 days. 4 each 02/28/20 25 Active azithromycin (ZITHROMAX) 250 mg tablet Take 2 tablets (500 mg total) by mouth 1 (one) time each day for 1 day, THEN 1 tablet (250 mg total) 1 (one) time each day for 4 days. 6 each 03/21/20 25 025 Active cephalexin (KEFLEX) 500 mg capsule Take 1 capsule (500 mg total) by mouth every 6 (six) hours. for 7 days 02/17/20 025 Discontinued furosemide (LASIX) 20 mg tablet Take 1 tablet (20 mg total) by mouth daily. 02/13/20 25 025 Discontinued levoFLOXacin (LEVAQUIN) 500 mg tablet [...] 8 days. 32 each 02/28/20 25 025 saccharomyces boulardii (FLORASTOR) 250 mg capsule Take 1 capsule (250 mg total) by mouth 2 (two) times a day for 14 days. 28 capsule 02/28/20 25 025 ondansetron (ZOFRAN) 4 mg tablet Take 1 tablet (4 mg total) by mouth every 8 (eight) hours if needed for nausea or vomiting for up to 3 days. 9 each 02/28/20 25 025 Active Problems Problem Noted Date Diagnosed Date Cellulitis 02/25/2025 Encounters Date Type Department Care Team Description 03/21/2025 4:36 PM EDT - 03/21/2025 9:42 PM EDT Emergency [facility] Emergency [address] [place] [address] Verónica Gross MD Chest pain, unspecified type (Primary Dx); Leg swelling; Bronchitis Discharge Disposition: Home or Self Care 02/25/2025 8:02 PM EDT - 02/27/2025 12:29 PM EDT Hospital Encounter [facility] Surgical Unit [address] [place] [address] Alan Hu MD Ishtiaq, MD Kelin [...] Mass Index 32.89 03/21/2025 4:12 PM EDT Plan of Treatment Health Maintenance Due Date Last Done Comments Colorectal Cancer Screening: Colonoscopy 1964 DTaP,Tdap,and Td Vaccines (1 - Tdap) 1983 Pneumococcal Vaccine: 50+ Years (1 of 2 - PCV) 1983 Social Influencers of Health Screening 05/27/2022 RSV Immunization Adult Patients (1 - Risk 60-74 years 1-dose series) 2024 Hepatitis B Vaccines (3 of 3 - 19+ 3-dose series) 05/22/2024 12/18/2023, 11/20/2023 Depression Screening 06/24/2024 COVID-19 Vaccine (3 - 2024- season) 2025 01/07/2021, 12/17/2020 Influenza Vaccine (#1) 2025 , 06/01/2022, 04/01/2018, Additional history exists Hypertension/CHF/CAD Annual BMP Blood Test 03/21/2026 03/21/2025, 02/27/2025, 02/26/2025, Additional history exists Cholesterol Screening (Lipid Panel) [...] HIGH SENSITIVITY Timed 03/21/2025 4:47 PM EDT BASIC METABOLIC PANEL STAT 03/21/2025 4:47 PM EDT COMPLETE BLOOD COUNT STAT 03/21/2025 4:47 PM EDT VANCOMYCIN, TROUGH Timed 02/27/2025 11 :03 AM [...] from Last 3 Months Results * ECG-Annotated (03/22/2025) us Provider Onbase ECG ORDERABLES Final Result * Troponin I High Sensitivity (03/21/2025 6:31 PM EDT) Only the most recent of2 resultswithin the time period is included. High Sensitivity Troponin I 9 <=79 ng/L LAB CHEMISTRY METHOD 03/21/2025 7:08 PM EDT [facility] Blood Venous blood specimen / Unknown Venipuncture / Unknown 03/21/2025 6:31 PM EDT 03/21/2025 6:41 PM EDT Narrative [facility] - 03/21/2025 7:08 PM EDT High levels of biotin in samples may falsely decrease hsTroponin values. Use caution when interpreting hsTroponin results in patients taking biotin who exhibit renal impairment (eGFR <60) or in patients taking more than 20 mg/day of biotin. us Verónica Gross MD LAB BLOOD ORDERABLES Final Resul t [facility] ([facility] LAB [address] [place] [address], * CT Angio Chest wo and/or w [...] GEMUSE QTc 447 ms GEMUSE P Wave Badger 32 degrees GEMUSE R Badger -23 degrees GEMUSE T Badger 0 degrees GEMUSE ECG Interpretation Normal sinus rhythm Normal ECG When compared with ECG of 02-OCT-2024 20:09, No significant change was found Confirmed by KIEL ROBERSON ([id number]) on 03/21/2025 10:51:55 PM GEMUSE 03/21/2025 5:56 PM EDT 03/21/2025 10:51 PM EDT us Verónica Gross MD ECG ORDERABLES Final Result GEMUSE * Vascular US Duplex Lower Extremity Venous Bilateral (03/21/2025 5:18 PM EDT) Only the most recent of2 resultswithin the time period is included. Anatomical Region Laterality Modality Vascular, Abdomen Ultrasound 03/21/2025 9:07 PM EDT Impressions 03/21/2025 9:08 PM EDT NO RIGHT OR LEFT LOWER EXTREMITY DEEP VENOUS THROMBOSIS. -------- FINAL REPORT -------- Dictated By: UBALDO SARAH Dictated Date: 03/21/2025 21:07 ET Assigned Physician: UBALDO SARAH Reviewed and Electronically Signed By: UBALDO SARAH Signed Date: 03/21/2025 21:08 ET Workstation ID: [id number] Transcribed By: Self Edit Transcribed Date: 03/21/2025 [...] Visualized calf veins are patent. Procedure Note Ubaldo Sarah MD - 03/21/2025 PROCEDURE: VAS US [...] THROMBOSIS. -------- FINAL REPORT -------- Dictated By: UBALDO SARAH Dictated Date: 03/21/2025 21:07 ET Assigned Physician: UBALDO SARAH Reviewed and Electronically Signed By: UBALDO SARAH Signed Date: 03/21/2025 21:08 ET Workstation ID: [id number] Transcribed By: Self Edit Transcribed Date: 03/21/2025 21:07 ET us Verónica Gross MD CV VASCULAR PROCEDURES Final Res ult * (ABNORMAL) CBC (03/21/2025 4:47 PM EDT) WBC 7.6 4.8 - 10.8 K/mcL LAB HEMETOLOGY METHOD 03/21/2025 5:10 PM EDT [facility] RBC 4.40(L) 4.50 - 5.50 M/mcL LAB HEMETOLOGY METHOD 03/21/2025 5:10 PM EDT [facility] Hemoglobin 13.8 13.5 - 17.5 g/dL LAB HEMETOLOGY METHOD 03/21/2025 5:10 PM EDT [facility] Hematocrit 42.8 42.0 - 54.0 % LAB HEMETOLOGY METHOD 03/21/2025 5:10 PM EDT [facility] MCV 96.4 79.0 - 98.0 FL LAB HEMETOLOGY METHOD 03/21/2025 5:10 PM EDT [facility] MCH 31.1 27.0 - 32.0 pcg LAB HEMETOLOGY METHOD 03/21/2025 5:10 PM EDT [facility] MCHC 32.2 32.0 - 37.0 g/dL LAB HEMETOLOGY METHOD 03/21/2025 5:10 PM EDT [facility] RDW 12.8 11.0 - 15.0 % LAB HEMETOLOGY METHOD 03/21/2025 5:10 PM EDT [facility] Platelets 211 130 - 400 K/mcL LAB HEMETOLOGY METHOD 03/21/2025 5:10 PM EDT [facility] MPV 10.3 7.0 - 11.0 FL LAB HEMETOLOGY METHOD 03/21/2025 5:10 PM EDT [facility] NRBC 0.0 <1.0 % LAB HEMETOLOGY METHOD 03/21/2025 5:10 PM EDT [facility] NRBC Absolute 0.00 <0.10 K/mcL LAB HEMETOLOGY METHOD 03/21/2025 5:10 PM EDT [facility] Blood Venous blood specimen / Unknown Venipuncture / Unknown 03/21/2025 4:47 PM EDT 03/21/2025 5:05 PM EDT us Verónica Gross MD LAB BLOOD ORDERABLES Final Resul t [facility] [address] [place] [address], * (ABNORMAL) Basic Metabolic Panel (BMP) (03/21/2025 4:47 PM EDT) Only the most recent of4 resultswithin the time period is included. Sodium 140 133 - 145 mmol/L LAB CHEMISTRY METHOD 03/21/2025 5:29 PM [facility] Potassium 3.7 3.5 - 5.5 mmol/L LAB CHEMISTRY METHOD 03/21/2025 5:29 PM [facility] Chloride 104 96 - 110 mmol/L LAB CHEMISTRY METHOD 03/21/2025 5:29 PM [facility] CO2 29 21 - 32 mmol/L LAB CHEMISTRY METHOD 03/21/2025 5:29 PM [facility] Anion Gap 7 3 - 11 LAB CHEMISTRY METHOD 03/21/2025 5:29 PM [facility] Glucose 100 70 - 100 mg/dL LAB CHEMISTRY METHOD 03/21/2025 5:29 PM [facility] BUN 26(H) 5 - 25 mg/dL LAB CHEMISTRY METHOD 03/21/2025 5:29 PM [facility] Creatinine 1.21 0.70 - 1.30 mg/dL LAB CHEMISTRY METHOD 03/21/2025 5:29 PM [facility] eGFR 69 >=60 mL/min/1. 73m2 LAB CHEMISTRY METHOD 03/21/2025 5:29 PM [facility] Comment:Calculation based on the Chronic Kidney Disease Epidemiology Collaboration (CKD-EPI) equation refit without adjustment for race. BUN/Creatinine Ratio 21.5 LAB CHEMISTRY METHOD 03/21/2025 5:29 PM [facility] Calcium 8.8 8.5 - 10.5 mg/dL LAB CHEMISTRY METHOD 03/21/2025 5:29 PM [facility] Blood Venous blood specimen / Unknown Venipuncture / Unknown 03/21/2025 4:47 PM EDT 03/21/2025 5:05 PM EDT Verónica Gross MD LAB BLOOD ORDERABLES Final Resul t Performing Organization Address [facility]/ZIP Co de Phone Number [facility] [address] [place] [address], [place] [phone] * (ABNORMAL) Vancomycin, trough (02/27/2025 11:03 AM EDT) Vancomycin Trough 2.6(L) 10.0 - 20.0 mcg/mL LAB CHEMISTRY METHOD 02/27/2025 11:45 AM EDT [facility] Blood Venous blood specimen / Unknown Venipuncture / Unknown 02/27/2025 11:03 AM EDT 02/27/2025 11:08 AM EDT Demarcus Cage MD LAB BLOOD ORDERABLES Final Res ult Performing Organization Address [facility]/ZIP Co de Phone Number [facility] [address] [place] [address], [place] [phone] * XR Abdomen 1 View (02/27/2025 10:20 AM EDT) Anatomical Region Laterality Modality Body Radiographic Vernell ging 02/27/2025 10:5 2 AM EDT Impressions 02/27/2025 10:53 AM EDT No acute findings. -------- FINAL REPORT -------- Dictated By: Mayur Zavala Dictated Date: 02/27/2025 10:52 ET Assigned Physician: Mayur Zavala Reviewed and Electronically Signed By: Mayur aZvala Signed Date: 02/27/2025 10:53 ET Workstation ID: [id number] Transcribed By: Self Edit Transcribed Date: 02/27/2025 [...] Signed Date: 02/27/2025 10:53 ET Workstation ID: [id number] Transcribed By: Self Edit Transcribed Date: 02/27/2025 10:52 ET us Annie OQUENDO IMG XR PROCEDURES Final Res ult * CBC auto differential (02/27/2025 5:36 AM EDT) Only the most recent of3 resultswithin the time period is included. WBC 8.6 4.8 - 10.8 K/mcL LAB HEMETOLOGY METHOD 02/27/2025 6:00 AM [facility] RBC 4.50 4.50 - 5.50 M/mcL LAB HEMETOLOGY METHOD 02/27/2025 6:00 AM EDT [facility] Hemoglobin 14.3 13.5 - 17.5 g/dL LAB HEMETOLOGY METHOD 02/27/2025 6:00 AM [facility] Hematocrit 44.0 42.0 - 54.0 % LAB HEMETOLOGY METHOD 02/27/2025 6:00 AM [facility] MCV 96.9 79.0 - 98.0 FL LAB HEMETOLOGY METHOD 02/27/2025 6:00 AM [facility] MCH 31.5 27.0 - 32.0 pcg LAB HEMETOLOGY METHOD 02/27/2025 6:00 AM [facility] MCHC 32.5 32.0 - 37.0 g/dL LAB HEMETOLOGY METHOD 02/27/2025 6:00 AM [facility] RDW 13.0 11.0 - 15.0 % LAB HEMETOLOGY METHOD 02/27/2025 6:00 AM [facility] Platelets 156 130 - 400 K/mcL LAB HEMETOLOGY METHOD 02/27/2025 6:00 AM [facility] MPV 10.7 7.0 - 11.0 FL LAB HEMETOLOGY METHOD 02/27/2025 6:00 AM [facility] NRBC 0.0 <1.0 % LAB HEMETOLOGY METHOD 02/27/2025 6:00 AM [facility] NRBC Absolute 0.00 <0.10 K/mcL LAB HEMETOLOGY METHOD 02/27/2025 6:00 AM [facility] Neutrophils Relative 57.2 % LAB HEMETOLOGY METHOD 02/27/2025 6:00 AM [facility] Lymphocytes Relative 29.7 % LAB HEMETOLOGY METHOD 02/27/2025 6:00 AM [facility] Monocytes Relative 9.7 % LAB HEMETOLOGY METHOD 02/27/2025 6:00 AM [facility] Eosinophils Relative 2.8 % LAB HEMETOLOGY METHOD 02/27/2025 6:00 AM [facility] Basophils Relative 0.4 % LAB HEMETOLOGY METHOD 02/27/2025 6:00 AM [facility] Immature Granulocytes Relative 0.2 % LAB HEMETOLOGY METHOD 02/27/2025 6:00 AM [facility] Neutrophils Absolute 4.89 1.50 - 7.00 K/mcL LAB HEMETOLOGY METHOD 02/27/2025 6:00 AM EDT [facility] Lymphocytes Absolute 2.54 1.00 - 5.00 K/mcL LAB HEMETOLOGY METHOD 02/27/2025 6:00 AM EDT [facility] Monocytes Absolute 0.83 0.20 - 1.00 K/mcL LAB HEMETOLOGY METHOD 02/27/2025 6:00 AM EDT [facility] Eosinophils Absolute 0.24 0.00 - 0.50 K/mcL LAB HEMETOLOGY METHOD 02/27/2025 6:00 AM EDT [facility] Basophils Absolute 0.03 0.00 - 0.20 K/mcL LAB HEMETOLOGY METHOD 02/27/2025 6:00 AM EDT [facility] Immature Granulocytes Absolute 0.02 0.00 - 0.03 K/mcL LAB HEMETOLOGY METHOD 02/27/2025 6:00 AM EDT [facility] Blood Venous blood specimen / Unknown Venipuncture / Unknown 02/27/2025 5:36 AM EDT 02/27/2025 5:54 AM EDT Annei OQUENDO LAB BLOOD ORDERABLES Final Result [facility] [address] [place] [address], * (ABNORMAL) C-reactive protein (02/27/2025 5:36 AM EDT) Only the most recent of2 resultswithin the time period is included. C-Reactive Protein 3.54(H) <=0.50 mg/dL LAB CHEMISTRY METHOD 02/27/2025 6:16 AM EDT [facility] Blood Venous blood specimen / Unknown Venipuncture / Unknown 02/27/2025 5:36 AM EDT 02/27/2025 5:54 AM EDT Annie OQUENDO LAB BLOOD ORDERABLES Final Result [facility] ([facility] [address] [place] [address], [place] [phone] * (ABNORMAL) TRANSTHORACIC ECHOCARDIOGRAM (TTE) COMPLETE W/ CONTRAST (02/26/2025 2:48 PM EDT) BSA 2.17 m2 CV PACS Left Atrium Minor Badger 6.7 cm CV PACS Left Atrium Major Badger 6.8 cm CV PACS LA Area Sys [...] Area 4.2 cm2 CV PACS MV Deceleration [place] 3.7 m/s2 CV PACS E Wave Deceleration [...] sult * Magnesium (02/26/2025 5:29 AM EDT) [facility] Magnesium 2.4 1.9 - 2.6 mg/dL LAB CHEMISTRY METHOD 02/26/2025 7:15 AM EDT [facility] Blood Venous blood specimen / Unknown Venipuncture / Unknown 02/26/2025 5:29 AM EDT 02/26/2025 6:12 AM EDT Demarcus Cage MD LAB BLOOD ORDERABLES Final Res ult Performing Organization Address [facility]/ZIP Co de Phone Number [facility] [address] [place] [address], [place] [phone] * Hemoglobin A1c (02/26/2025 5:29 AM EDT) [facility] Hemoglobin A1C 6.1 <6.5 % LAB CHEMISTRY METHOD 02/26/2025 11:16 AM EDT [facility] Mean Bld Glu Estim. 128 mg/dL LAB CHEMISTRY METHOD 02/26/2025 11:16 AM EDT [facility] Blood Venous blood specimen / Unknown Venipuncture / Unknown 02/26/2025 5:29 AM EDT 02/26/2025 6:13 AM EDT Verónica Pathak NP LAB BLOOD ORDERABLES Fin al Result Performing Organization Address City/[facility]/ZIP Co de Phone Number [facility] [address] [place] [address], [place] [phone] * MRSA molecular study (02/25/2025 9:18 PM EDT) [facility] MRSA Screen PCR Not Detected Not Detected LAB MICROBIOLOGY METHOD 02/25/2025 10:42 PM EDT [facility] Swab Both anterior nares / Unknown Non-blood Collection / Unknown 02/25/2025 9:18 PM EDT 02/25/2025 9:26 PM EDT Verónica Pathak NP LAB MICROBIOLOGY - GENER AL ORDERABLES Final Result Performing Organization Address City/[facility]/ZIP Co de Phone Number [facility] [address] [place] [address], [place] [phone] * Lactate, with Reflex (02/25/2025 6:57 PM EDT) LACTIC ACID 0.9 0.4 - 2.0 mmol/L LAB CHEMISTRY METHOD 02/25/2025 7:37 PM EDT [facility] Blood Venous blood specimen / Unknown Venipuncture / Unknown 02/25/2025 6:57 PM EDT 02/25/2025 7:06 PM EDT us Alan Hu MD LAB BLOOD ORDERABLES Final Resul t Performing Organization Address [facility]/ZIP Co de Phone Number [facility] [address] [place] [address], [place] [phone] * Blood Culture, Peripheral #2 (02/25/2025 6:57 PM EDT) Only the most recent of2 resultswithin the time period is included. Culture, Blood No growth at 5 days 03/02/2025 8:01 PM EDT [facility] Blood Venous blood specimen / Unknown Venipuncture / Unknown 02/25/2025 6:57 PM EDT 02/25/2025 7:07 PM EDT us Alan Hu MD LAB MICROBIOLOGY - GENERAL ORDER BABITA Final Result Performing Organization Address City/[facility]/ZIP Co de Phone Number [facility] [address] [place] [address], [place] [phone] from Last 3 Months Insurance [facility] [employer] Advance Directives * Full Code - [...] currently active code status orders. Care Teams Hand Flatwork Finisher Relationship Specialty Start Date End Date Marleen Jovel MD [address] [place] [id number] PCP - General Family Medicine 10/02/24
== END 2025-03-25 16:15 | disposition home or self-care (01) ==
LOC: HO.HUSH 14:59
PROVIDERS: PCP Family Medicine; Visit Provider Urology
DX: C61 Malignant neoplasm of prostate (principal); Z19.1 Hormone sensitive malignancy status
CPT/HCPCS: 99499

== ENCOUNTER 2025-03-31 14:14 | Outpatient (REF) | payer OTHER, SELFPAY ==
--- NOTE | ~2025-03-31 | FL_ITS ---
EXAMINATION: XR MODIFIED BARIUM SWALLOW CLINICAL INFORMATION: Dysphagia, unspecified. Laryngeal penetration on barium swallow 12/28/2024. COMPARISON: 12/28/2024. TECHNIQUE: Modified barium swallow was performed under lateral fluoroscopy with patient in standing position. Barium mixed with solids and liquids of different consistencies was administered by the speech pathologist. Examination was recorded in the fluoroscopy suite. FINDINGS: The patient was given several consistencies. Trace, transient laryngeal penetration was noted on thin liquids. There was no evidence of aspiration. FLUOROSCOPY TIME: 1 minute, 38 seconds Number of Spot Images: N/A DOSE AREA PRODUCT: 1064 uGy-m2 (microgray-meter squared) FL/FL Modified Barium Swallow IMPRESSION: 1. Trace laryngeal penetration on thin liquids without evidence of subglottic aspiration. Please refer to the full speech therapy report to follow for further detail. Electronically signed by: Alexandro Blandon MD 03/31/2025 03:15 PM EDT
--- NOTE | 2025-03-31 15:53 | MHC.SL.IMP ---
Date of Plan of Treatment: 03/31/25 Onset of Symptoms/Illness: 03/31/17 Date Treatment Started: 03/31/25 Admitting Diagnosis: GERD Primary Speech & Language Diagnosis: R13.12 Oropharyngeal Phase Dysphagia Reason for Today's Visit: 95786 Modified Barium Swallow Study Pre-evaluation Dietary Consistencies: Regular Pre-evaluation Liquid Consistency: Thin Pre-evaluation Medication Administration: Whole with Liquid Medical History: Modified Barium Swallow Study Fluoroscopic Evaluation of Swallowing Function CPT Code 69436 Evaluation Year: 2024 Reason for Study: Difficulty swallowing Referring Physician: Zonia Gongora MD Evaluating Clinician: Vianney Bradford MA, CCC-RESERVOIR ENGINEER Study Number: 1 Patient Name: Howard Ortiz Status: Outpatient, Ambulatory Age: 59 Sex: Male Medical History Medical History Abnormal EKG Arthritis Back pain Scoliosis Habitual snoring Bronchitis Asthma Nocturia GERD (gastroesophageal reflux disease) HTN (hypertension) Surgical History History of umbilical hernia repair (08/17/24) History of appendectomy H/O hand surgery Hx of hernia repair Hx of release of tendon Hx of bilateral inguinal hernia repair Current (pre-evaluation) Intake/Diet: Route: PO Diet Grade: Regular Liquid Consistencies: Thin Pre-Study Functional Oral Intake Scale (FOIS): 7- Total oral intake with no restrictions Pain: None reported at time of study SUBJECTIVE: Patient is a 59 year old male referred for a modified barium swallow study by Dr. Gongora from Gastroenterology service. Patient reports experiencing choking episodes mostly with solid foods. Patient reports he has been suffering with these symptoms for 5-8 years, and that they have gradually gotten worse. Patient also believes he may have reflux. Past medical history in the EMR documents history of GERD, asthma, and bronchitis. Patient did have a barium swallow x-ray on 12/28/24 showing, ?Laryngeal penetration on initial swallow but not seen subsequently, ?Patient had coughing throughout the exam. The barium swallow is otherwise unremarkable.? Most recent chest x-ray from 02/12/25 with no active pulmonary disease. Oral Motor Exam Facial Symmetry: Symmetrical Mouth Occlusion: Normal Oral-Facial Teeth Characteristics: Intact/Normal Oral-Facial Lip Pucker Description: Normal Oral-Facial Smile (Lips) Description: Normal Oral-Facial Puff Cheeks Description: Normal Tongue Size: Normal Tongue Excursion Description: Normal Tongue Range of Movement Description: Normal Tongue Speed of Movement Description: Normal Tongue Strength of Movement (against opposing pressure): Normal Tongue Movement Characteristics: Normal/Absent Food and Liquid Trials: Oral Impairment: Lip Closure: Did not test Oral Impairment: Tongue Control During Bolus Hold: 2=Posterior escape of less than half of bolus Oral Impairment: Bolus Preparation/Mastication: 1=Slow prolonged chewing/mashing with complete re-collection Oral Impairment: Bolus Transport/Lingual Motion: 1= Delayed initiation of tongue motion Oral Impairment: Oral Residue: 2=Residue collection on oral structures Oral Impairment:Initiation of Pharyngeal Swallow: 3=Bolus head in pyriforms Pharyngeal Impairment: Soft Palate Elevation: 0=No bolus between soft palate (SP)/pharyngeal wall (PW) Pharyngeal Impairment: Laryngeal Elevation: 0=Complete superior movement of thyroid cartilage (see description) Pharyngeal Impairment: Anterior Hyoid Excursion: 0=Complete anterior movement Pharyngeal Impairment: Epiglottic Movement: 1=Partial inversion Pharyngeal Impairment: Laryngeal Vestibular Closure:: 1=Incomplete: narrow column air/contrast in laryngeal vestibule Pharyngeal Impairment: Pharyngeal Stripping Wave: 0=Present: complete Pharyngeal Impairment: Pharyngeal Contraction: Did not test Pharyngeal Impairment: Pharyngoesophageal Segment Openin=Complete distension and complete duration: no obstruction of flow Pharyngeal Impairment: Tongue Base (TB) Retraction: 1=Trace column of contrast/air between TB and posterior PW Pharyngeal Impairment: Pharyngeal Residue: 1=Trace residue within or on pharyngeal structures Pharyngeal Impairment: Esophageal Clearance Upright Position: Did not test Impressions and Recommendations OBJECTIVE: Time-out: performed at 14:45 Evaluation Start: 14:30; Stop: 14:35 Patient Positioning: Standing Viewing Planes: LATERAL ONLY Contrast: MBSImP? Standardized Protocol using commercially prepared, standardized Barium viscosities, including: Varibar? THIN LIQUID (40% w/v, <15 cps) , Varibar? PUDDING (40% w/v, <7195-5822 cps) , 1/2 Shortbread Cookie (1 x1 x.25 ) MBSImP ID: [id number] MBSImP Results: Lip closure for intraoral bolus containment could not be assessed due to logistical reasons not related to physiologic impairment. Tongue control during bolus hold resulted in posterior escape of less than half of the bolus. Bolus preparation and mastication resulted in slow, prolonged chewing/mashing but with complete re-collection. Bolus transport/lingual motion demonstrated delayed initiation of tongue motion. Oral residue was a collection on oral structures. Initiation of the pharyngeal swallow occurred when the bolus head was in the pyriform sinuses. Soft palate elevation resulted in no bolus between the soft palate and the pharyngeal wall. Laryngeal elevation demonstrated complete superior movement of the thyroid cartilage with complete approximation of the arytenoids to the epiglottic petiole. Anterior hyoid excursion demonstrated complete anterior movement. Epiglottic movement resulted in partial inversion. Laryngeal vestibular closure was incomplete, with a narrow column of air/contrast noted within the laryngeal vestibule at the height of the swallow. Pharyngeal stripping wave was present and complete. Pharyngeal contraction could not be determined due to logistical reasons not related to physiologic impairment. Pharyngoesophageal segment opening was completely distended for complete duration with no obstruction of bolus flow. Tongue base retraction allowed a trace column of contrast or air between the retracted tongue base and the posterior pharyngeal wall. Pharyngeal residue was a trace within or on pharyngeal structures. Esophageal clearance in the upright position could not be assessed due to logistical reasons not related to physiologic impairment. Oral Impairment Score: 9 (absence of score, component 1) Pharyngeal Impairment Score: 2 (absence of score, component 13) Esophageal Impairment Score: --- (absence of score, component 17) Laryngeal Penetration and Aspiration: Neither penetration nor aspiration was observed in today's study with Cookie, Pudding-thick. Penetration was observed in today's study. Thin Contrast entered the airway, remained above the vocal folds, and was ejected from the airway. ASSESSMENT: This exam was performed by the radiologist and the speech pathologist. Patient was standing for lateral view and fed himself independently. He trialed the following consistencies: -thin liquids via individual cup sips -puree (mixture applesauce with barium pudding) -regular (shortbread cookie coated with barium pudding) There was posterior escape of trace contrast intermittently, which pooled in the valleculae and/or pyriforms prior to initiation of the pharyngeal swallow trigger. Posterior bolus transport was mildly delayed in initiation, but with brisk tongue movement. Mastication was mildly prolonged, characterized by piece meal deglutition pattern. Pharyngeal swallow trigger was delayed, at times initiated when the bolus head reached the pyriforms. Post-swallow, there was minimal residue coating the posterior tongue, which cleared on secondary swallow. No evidence of nasopharyngeal reflux. Complete laryngeal elevation with partial epiglottic inversion and incomplete laryngeal vestibular closure. Epiglottis appeared prominent. There was episodes of penetration intermittently on sips of thin liquid. A trace amount of liquid entered the airway above the vocal folds and cleared on subsequent swallows, with no aspiration. There was very trace residue on the tongue base, in the valleculae, and at times in the pyriforms, which also cleared on subsequent swallows. Liquid Intake Recommendation: Thin Liquid Intake Strategies: Dietary Recommendations: Regular Medication Administration: Whole with Liquid Please contact the pharmacy regarding appropriate crushable or liquid drug formulations that are available whenever modified delivery is recommended. Compensatory Strategies Recommended: Sitting Upright (90 deg), Small Bites and Sips, Rate of Ingestion Change Recommendation for Speech Therapy: NA:Typical Evaluation Text Comment: Intake Recommendations: Route: PO Diet Grade: Regular Liquid Consistencies: Thin Post-Study Functional Oral Intake Scale (FOIS): 7- Total oral intake with no restrictions Trace penetration intermittently on trials of thin liquid by cup, which cleared spontaneously. No evidence of aspiration during this exam. Minimal residue seen in the oral and pharyngeal cavities cleared on secondary swallows. Patient was observed to cough throughout the exam. Suggested Referrals: The patient might benefit from a referral to: Otolaryngology Indication for Referral: Patient?s voice perceived as hyponasal, presents with chronic cough and complaining of coughing with swallowing, barium swallow 12/28/24 and MBSS 03/31/25 showing no aspiration and good clearance, note hx GERD. Therapy Recommendations: Diet modification and speech therapy are not indicated at this time. Recommend continue on unmodified diet textures regular solids and thin liquids. Patient may benefit from referral to ENT for resonance issues and chronic cough. Clinician - Supplemental, Miscellaneous Communication: It is important to note MBSS objective studies are snapshots in time and Patient function might vary with factors such as time of day or concomitant medical conditions. For this reason, the final treatment plan for this patient should rest with their medical care team. Additional recommendations should be considered with the totality of the Patient in mind. Thank for the opportunity to participate in the care of this patient. If you have any questions about the content of this report, please contact the [facility] at [facility]. Education: Education regarding findings from today's study and plans for therapy were provided to Patient only through Verbal Instruction. Understanding was expressed by the Patient only. Meal Temperer Clinician/Clinical Fellow: No Supervisory Statement: N/A Speech Language Pathologist: Vianney Bradford M.A., [facility]-RESERVOIR ENGINEER
== END 2025-03-31 14:15 | disposition home or self-care (01) ==
LOC: HO.XRAY 14:14
PROVIDERS: PCP Family Medicine; Visit Provider Internal Medicine
DX: R13.10 Dysphagia, unspecified (principal)
CPT/HCPCS: 74230; 92611

== ENCOUNTER → 2025-03-31 14:15 | Outpatient (BNV) | payer OTHER, SELFPAY | PROVIDERS: PCP Family Medicine; Visit Provider Radiology Diagnostic Radiology | DX: R13.10 Dysphagia, unspecified (principal) | CPT/HCPCS: 74230 ==

== ENCOUNTER 2025-04-26 14:02 | Outpatient (AMB) | payer OTHER, SELFPAY ==
[2025-04-26 14:27] VITALS: BP 110/82; PULSE 81; BMI 34.2
--- NOTE | 2025-04-26 14:27 | MHC.OFFVIS ---
Vital Signs 04/26/25 14:27 Height 5 ft 7 in Weight 218 lb 11.177 oz BMI 34.2 BP 110/82 Blood Pressure Location Lt brachial Position Sitting Pulse 81 Pulse Source Pulse Oximeter Intake Visit Reasons: Dr. Lomeli/Pedal edema Hand Silvering Supervisor Required: No Hand Silvering Supervisor Services: Hand Silvering Supervisor Offered & Declined Finished Hardware Erector: Finished Hardware Erector Present Allergies No Known Allergies Allergy (Verified 04/26/25 14:31) Medication List - Last Reconciled 04/26/25 by THUAN Ca albuterol sulfate 90 mcg/actuation 2 puffs inhalation Q4-6H PRN azithromycin 250 mg PO DIRECTED betamethasone valerate 0.1% 1 appl topical DAILY blood pressure test kit-large As directed cetirizine 10 mg PO DAILY cholecalciferol (vitamin D3) 50 mcg PO DAILY dutasteride 0.5 mg PO DAILY 90 days fluticasone furoate 100 mcg/actuation (Arnuity Ellipta) 1 inh inhalation DAILY furosemide 20 mg PO DAILY hydrochlorothiazide 25 mg PO DAILY levofloxacin 500 mg PO DAILY 3 days ondansetron HCl 4 mg PO Q8H PRN pantoprazole 20 mg PO DAILY polyethylene glycol 3350 (Miralax) 238 grams PO ONCE Saccharomyces boulardii (Probiotic (S.boulardii)) 250 mg PO BID tizanidine 2 mg PO BID PRN tramadol 50 mg PO TID PRN HPI HPI Dr. Lomeli/Pedal edema: Details: Howard is a 59-year-old male with past medical history of hypertension, pre diabetes, who was recently admitted at [facility] for foot and leg edema. Records of that admission not available at the time of this visit. He now presents here for follow-up. Today he reports that he has been having swelling in his feet and lower legs for the last 4 months. He says he was seen at [facility] ED in January and treated for cellulitis. He says he was then admitted at [facility] for the same problem. He still on antibiotics but tells me he still has swelling in his legs. He is reporting shortness of breath with exertional activities which is not new. He has been sleeping on the couch as he says he can sleep better in a partially upright position. He also has random left-sided chest pains not brought on by walking or stair climbing. No heart palpitations, lightheadedness, presyncope, syncope, falls. 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 He still drinks 4-5 beers regularly. He is now following with GI for his swallowing difficulties. He is currently taking both Lasix and hydrochlorothiazide. Compliant with all meds. Significant other is present and assisting with Kyrgyz translation. [facility] Medical History Abnormal EKG Arthritis Back pain Scoliosis Habitual snoring Bronchitis Asthma Nocturia GERD (gastroesophageal reflux disease) HTN (hypertension) Surgical History History of umbilical hernia repair (08/17/24) History of appendectomy H/O hand surgery Hx of hernia repair Hx of release of tendon Hx of bilateral inguinal hernia repair Social History Are you a primary health care attorney to a significant other at home: No Do you presently have visiting nurse or other home services: No Alcohol intake: current Alcohol intake frequency: a few times a week Patient Tobacco Use Status: Never used Tobacco Review of Systems Const All systems reviewed & are unremarkable except as noted in HPI and below ENT Denies dizziness Card Details: discomfort in chest Denies chest pain, Denies chest pain at rest, Denies chest pain with activity, Denies rapid heart rate, Reports pedal edema, Denies edema, Reports leg edema, Denies lightheadedness, Denies palpitations, Denies dyspnea, Reports dyspnea on exertion and Denies orthopnea Resp Denies cough, Denies dyspnea and Reports dyspnea on exertion GI Denies hematochezia and Denies change in stool character Musc Denies abnormal gait, Reports limited range of motion, Denies muscle cramps, Denies muscle weakness, Denies numbness, Denies radiating pain into limb, Denies stiffness and Denies tingling Neuro Denies abnormal gait, Denies dizziness, Denies numbness and Denies tingling Endo Denies palpitations Physical Exam Vital Signs: Last Vital Signs Pulse 81 04/26/25 14:27 BP 110/82 04/26/25 14:27 BMI result Body Mass Index 34.2 Const General: cooperative, healthy appearing, comfortable and no acute distress Orientation/consciousness: patient oriented x3 Neck Neck: Yes normal visual inspection and Yes no JVD Resp Effort & Inspection: normal respiratory effort Auscultation: clear to auscultation bilaterally, no crackles, no rales, no rhonchi and no wheezes Cardio Rate: regular rate Rhythm: regular rhythm Heart sounds: S1 normal heart sound present, S2 normal heart sound present, no murmurs and no rubs Neuro General: patient oriented x3 Extrem Other: mild edema in feet bilaterally and 1+ edema left lower leg with mild redness General: Yes pedal edema Psych Appearance: grossly normal Mental Status: mental status grossly normal Speech and movement: Normal speech and movement present Assessment & Plan Assessment & Plan (1) Edema of both feet: Code(s): R60.0 - Localized edema Category: Medical Plan: Report of foot and lower leg edema occurring in the last 4 months. [facility] evaluation with ultrasound showing negative DVT. BNP only mildly elevated. He was treated for cellulitis in January. [facility] admission, details unknown. Will work on obtaining [facility] records for review. Last echo 05/28/2024 showing EF 60-65%, normal valve Dopplers and normal RV systolic pressures. His swelling is less likely to be heart failure related. He is still undergoing treatment for cellulitis. I gave him a pair of compression stockings from our office stock and instructed on their use. He will not use on left leg until all signs of cellulitis has resolved. Discussed low-salt diet, leg elevation, avoid prolonged standing at work if able. No med changes made. (2) Abnormal EKG: Code(s): R94.31 - Abnormal electrocardiogram [ECG] [EKG] Category: Medical Plan: Prior EKG showing normal sinus rhythm with inferior infarct. Patient has no known history of heart disease or prior AK. He has cardiac risk factors of hypertension and borderline diabetes. Echocardiogram was done on 05/28/2024 showing EF 60-65%, normal valves, no regional wall motion abnormality, ascending aorta 3.8 cm. A nuclear stress test was done 06/19/2024 showing normal myocardial perfusion imaging. Currently has atypical sounding chest discomfort. Signs and symptoms of true angina reviewed with him. Continue risk factor modification. (3) HTN (hypertension): Code(s): I10 - Essential (primary) hypertension Category: Medical Plan: Blood pressure goal less than 130/80. Well controlled at present. No med changes made. Plan I discussed with the patient the ongoing management of cellulitis, emphasizing the importance of completing the antibiotic course and using compression stockings once the redness subsides. We reviewed the potential cardiac causes for his symptoms, and I explained the need for further heart testing, including a possible heart ultrasound. Informed him I will need to reviewe [facility] records to see what tests have been done. I advised reducing salt intake to manage leg swelling and scheduled a follow-up to review test results and adjust the treatment plan as necessary. Patient Instructions: - Complete the full course of antibiotics as prescribed. - Wear compression stockings once leg redness improves. - Avoid standing for prolonged periods to reduce leg swelling. - Follow a low-salt diet to help manage swelling. - Attend follow-up appointments for further heart testing and review of results. Patient was informed and verbally consented to the use of an ambient scribe for clinic note documentation during this visit. Visit time spent on chart review, interview, assessment, orders, documentation. Coding Level of Care Code Est Pt Level 4 (97677) Diagnoses Edema of both feet R60.0 Abnormal EKG R94.31 HTN (hypertension) I10 Time Spent (min) 28
== END 2025-04-26 15:06 | disposition home or self-care (01) ==
LOC: HO.HCS 14:03
PROVIDERS: PCP Family Medicine; Visit Provider Nurse Practitioner Family
DX: R60.0 Localized edema (principal); R94.31 Abnormal electrocardiogram [ECG] [EKG]; I10 Essential (primary) hypertension
CPT/HCPCS: 99214

== ENCOUNTER → 2025-04-26 14:02 | Outpatient (BNVA) | payer OTHER, SELFPAY | PROVIDERS: PCP Family Medicine; Visit Provider Nurse Practitioner Family | DX: R60.0 Localized edema (principal); R94.31 Abnormal electrocardiogram [ECG] [EKG]; I10 Essential (primary) hypertension | CPT/HCPCS: 99212 ==

== ENCOUNTER 2025-04-27 10:26 | Outpatient (REF) | payer OTHER, SELFPAY ==
--- OUTSIDE RECORDS SUMMARY | 2025-04-27 09:30 | XMS_ITS | Encounter Summary ---
Author Organization [facility] Address [address] [place] [address] Care Team Providers Care Spinner Hydraulic Name Role Phone Marleen Jovel MD Primary Care Provider [phone] Reason for Visit * Reason Comments skin lesions of the lower limbs Encounter Details Date Type Department Care Team ([facility] st Contact Info) Description 04/27/2025 9:30 AM EST Office Visit [facility] [address] [place] [address] Nhung Bearden MD [address] [place] [address] Venous stasis dermatitis (Primary Dx); Gross hematuria Social History Tobacco Use Types Packs/Day Years [...] Sign Reading Time Taken Comments Blood Pressure 114/78 04/27/2025 9:33 AM EST Pulse 70 04/27/2025 9:33 AM EST Temperature - - Respiratory Rate 20 04/27/2025 9:33 AM EST Oxygen Saturation 97% 04/27/2025 9:33 AM EST Inhaled Oxygen Concentration - - Weight 98 kg (216 lb) 04/27/2025 9:33 AM EST Height 169 cm (5' 6.54 ) 04/27/2025 9:33 AM EST Body Mass Index 34.3 04/27/2025 9:33 AM EST documented in this encounter Progress Notes * Nhung Bearden MD - 04/27/2025 9:30 AM EST SUBJECTIVE Howard Carson is a 59 y.o. male who presents for skin lesions of the lower limbs. Howard Carson, 59-year-old male - History of venous stasis dermatitis with persistent redness and itchiness on the legs - Bleeding episodes reported three times over the past two weeks, associated with burning sensation - No use of antibiotics for current skin condition - Previous visit to lapeler, not vascular surgeon Problem List[1] Allergies[2] Medications Ordered Prior to Encounter[3] Review of Systems Constitutional: Negative for appetite change, chills and diaphoresis. Respiratory: Negative for cough and choking. Cardiovascular: Negative for leg swelling. Gastrointestinal: Negative for blood in stool and constipation. Musculoskeletal: Negative for gait problem and joint swelling. Skin: Positive for rash. OBJECTIVE Vitals: 04/27/25 0933 BP: 114/78 BP Location: Left arm Patient Position: Sitting BP Cuff Size: Adult long Pulse: 70 Resp: 20 SpO2: 97% Weight: 216 lb (98 kg) Height: 5' 6.54 (1.69 m) Physical Exam Constitutional: General: He is not in acute distress. Appearance: Normal appearance. He is not ill-appearing or diaphoretic. Pulmonary: Effort: Pulmonary effort is normal. Skin: Comments: - SKIN: Presence of erythema and poorly demarcated areas consistent with venous stasis dermatitis on the legs. Neurological: Mental Status: He is alert. Assessment/Plan Assessment/Plan Diagnoses and all orders for this visit: Venous stasis dermatitis - triamcinolone (Kenalog) 0.1 % ointment; Apply topically 2 times daily. Gross hematuria - Urinalysis, Complete, with Reflex to Culture; Future Venous stasis dermatitis: - Venous stasis dermatitis confirmed as the cause of skin changes on the legs. - Prescribed topical ointment to be applied to affected area twice daily. Recommended leg elevation. Referral to vascular surgery reiterated; instructed to contact vascular surgeon???s office for appointment. Advised to monitor for improvement over the next two weeks and report if no improvement. Gross hematuria: - Gross hematuria noted, etiology undetermined. Differential includes urinary tract infection and other urological causes. - Ordered urinalysis to evaluate for urinary tract infection. Recommended patient contact urologist(Dr. Wilkins) for further evaluation. Will consider renal ultrasound pending urinalysis results. Results to be communicated to patient. This note was drafted using [employer]) technology. The patient/patient's guardian has been informed and has consented to the use of this technology: Yes [1] Patient Active Problem List Diagnosis Nocturia [...] Cellulitis of lower extremity Venous stasis dermatitis Lower extremity edema [2] No Known Allergies [3] Current Outpatient Medications on File Prior to Visit Medication Sig Dispense Refill albuterol 108 (90 Base) MCG/ACT inhaler Inhale 2 puffs every 4 (four) hours if needed for wheezing or shortness of breath. 18 g 5 amoxicillin (Amoxil) 875 MG tablet Take 1 tablet (875 mg) by mouth 2 times daily for 14 days. 28 tablet 0 betamethasone valerate (Valisone) 0.1 % ointment Apply topically if needed in the morning and at bedtime (dryness). 45 g 0 Blood Pressure kit 1 Units Once per day. 1 kit 0 cetirizine (ZyrTEC) 10 MG tablet Take 1 tablet (10 mg) by mouth Once per day. 30 tablet 11 doxycycline (Vibra-Tabs) 100 MG tablet Take 1 tablet (100 mg) by mouth 2 times daily for 14 days. Take with a full glass of water and do not lie down for at least 30 minutes after. 28 tablet 0 fluticasone furoate (Arnuity Ellipta) 100 MCG/ACT inhaler Inhale 1 puff Once per day. Rinse mouth with water after use to reduce aftertaste and incidence of candidiasis. Do not swallow. 1 each 5 furosemide (Lasix) 20 MG tablet Take 1 tablet (20 mg) by mouth Once per day. 3 tablet 0 hydroCHLOROthiazide (HYDRODiuril) 25 MG tablet Take 1 [...] needed for muscle spasms. 90 capsule 1 triamcinolone (Kenalog) 0.1 % ointment Apply topically 2 times daily. 30 g 0 No current facility-administered medications on file prior to visit. documented in this encounter Plan of Treatment Upcoming Encounters Date Type Department Care Team (Late st Contact Info) Description 05/10/2025 10:00 AM EST Office Visit [facility] [address] [place] [address] Marleen Jovel MD [address] [place] [address] Scheduled Orders Name Type Priority Associated Diagnoses Orde r Schedule Urinalysis, Complete, with Reflex to Culture Lab Routine Gross hematuria Expected: 04/27/2025 (Approximate), Expires: 04/27/2026 documented as of this encounter Visit Diagnoses Diagnosis Venous stasis dermatitis- Primary Gross hematuria documented in this encounter Additional Health Concerns Assessment Noted Time PHQ-9 Depression Total Score: 8 03/25/20 25 10:21 AM EDT documented as of this encounter Care Teams Spinner Hydraulic Relationship Specialty Start Date End Date Marleen Jovel MD [address] [place] [phone] PCP - General Family Medicine 10/28/23 documented as of this encounter
--- OUTSIDE RECORDS SUMMARY | 2025-04-27 12:15 | XMS_ITS | Encounter Summary ---
Author Organization [employer] Address [address] [place] [address] Care Team Providers Care Forensic Document Examiner Name Role Phone Marleen Jovel MD Primary Care Provider [phone] Encounter Details Date Type Department Care Team (Late st Contact Info) Description 10/05/2024 Orders Only [facility] [address] [place] [address] Provider, MD Wang Social History Tobacco Use [...] Description 05/10/2025 10:00 AM EST Office Visit [facility] [address] [place] [address] Marleen Jovel MD [address] [place] [address] documented as of this encounter Procedures Procedure Name Priority Date/Time Associated Diagnosis Comments ECG 12-LEAD Routine 10/02/2024 9:58 AM EDT ECG 12-LEAD Routine 10/02/2024 9:09 AM EDT documented in this encounter Results * ECG 12 lead (10/02/2024 9:58 AM EDT) us Historical Provider MD ECG ORDERABLES Final Res ult * ECG 12 lead (10/02/2024 9:09 AM EDT) us Historical Provider ECG ORDERABLES Final Res ult documented in this encounter Visit Diagnoses Not on filedocumented in this encounter Additional Health Concerns Assessment Noted Time PHQ-9 Depression Total Score: 0 10/28/19 9:20 AM EDT documented as of this encounter Care Teams Forensic Document Examiner Relationship Specialty Start Date End Date Marleen Jovel MD [address] [place] [address] PCP - General Family Medicine 10/28/23 documented as of this encounter
--- OUTSIDE RECORDS SUMMARY | 2025-04-27 12:15 | XMS_ITS | Encounter Summary ---
Author Organization [employer] Address [address] [facility] [address] [place] [address] Care Team Providers Care Entry Level Sales Representative Name Role Phone Marleen Jovel MD Primary Care Provider [phone] Reason for Visit * Reason Comments Med Refill Encounter Details Date Type Department Care Team ([facility] st Contact Info) Description 07/31/[address] [facility] [address] [place], [place] [phone] Marleen Jovel MD [address] [place] [address] Social History Tobacco Use Types Packs/Day Years [...] Description 05/10/2025 10:00 AM EST Office Visit [facility] [address] [place] [address] Marleen Jovel MD [address] [place] [address] documented as of this encounter Visit Diagnoses Not on filedocumented in this encounter Additional Health Concerns Assessment Noted Time PHQ-9 Depression Total Score: 0 10/28/19 9:20 AM EDT documented as of this encounter Care Teams Entry Level Sales Representative Relationship Specialty Start Date End Date Marleen Jovel MD [address] [place] [address] PCP - General Family Medicine 10/28/23 documented as of this encounter
--- OUTSIDE RECORDS SUMMARY | 2025-04-27 12:16 | XMS_ITS | Clinical Summary ---
Author Organization [facility] Address [address] [place] [address] Phone Care Team Providers Care Boatwright Name Role Phone Marleen Jovel MD Primary Care Provider [phone] Allergies No known active allergies Medications albuterol HFA (PROAIR HFA ; PROVENTIL HFA ; VENTOLIN HFA) 90 mcg/actuation inhaler Inhale 2 puffs by mouth Every 4 hours as needed. 5 02/17/20 26 Active amLODIPine (NORVASC) 5 mg tablet Take 1 tablet (5 mg total) by mouth 1 (one) time each day. Active cetirizine (ZyrTEC) 10 mg tablet Take 1 tablet (10 mg total) by mouth daily. 4 09/18/19 26 Active clobetasoL (TEMOVATE) 0.05 % ointment Apply 1 Application topically 2 (two) times a day. 5 Active fluticasone furoate (ARNUITY ELLIPTA) 100 mcg/actuation blister with device inhaler Inhale 1 puff by mouth daily. 5 02/17/20 26 Active ketotifen fumarate (ZADITOR) 0.035 % ophthalmic solution Administer 1 drop into affected eye(s) 2 times daily. 5 Active furosemide (LASIX) 20 mg tablet Take 1 tablet (20 mg total) by mouth 1 (one) time each day for 4 days. 4 each 5 Active Active Problems Problem Noted Date Diagnosed Date Cellulitis 02/25/2025 Encounters Date Type Department Care Team Description 03/21/2025 4:36 PM EDT - 03/21/2025 9:42 PM EDT Emergency [facility] Emergency [address] [place] [address] Verónica Gross MD Chest pain, unspecified type (Primary Dx); Leg swelling; Bronchitis Discharge Disposition: Home or Self Care 02/25/2025 8:02 PM EDT - 02/27/2025 12:29 PM EDT Hospital Encounter [facility] Medical Surgical Unit [address] [place] [phone] Alan Hu MD Ishtiaq, Rizwan, MD Alam, Aroosa, MD Bilateral leg edema (Primary Dx); [...] (1 of 2 - PCV) 1983 RSV Immunization Adult Patients (1 - Risk 50-74 years 1-dose series) 2014 Social Influencers of Health Screening 05/27/2022 Hepatitis B Vaccines (3 of 3 - [...] Results * ECG-Annotated (03/22/2025) us Provider Onbase MD ECG ORDERABLES Final Result * Troponin I High Sensitivity (03/21/2025 6:31 PM EDT) Only the most recent of2 resultswithin the time period is included. High Sensitivity Troponin I 9 <=79 ng/L LAB CHEMISTRY METHOD 03/21/2025 7:08 PM EDT [facility] Blood Venous blood specimen / Unknown Venipuncture / Unknown 03/21/2025 6:31 PM EDT 03/21/2025 6:41 PM EDT Narrative [facility] - 03/21/2025 7:08 PM EDT High levels of biotin in samples may falsely decrease hsTroponin values. Use caution when interpreting hsTroponin results in patients taking biotin who exhibit renal impairment (eGFR <60) or in patients taking more than 20 mg/day of biotin. Verónica Gross MD LAB BLOOD ORDERABLES Final Resul t [facility] ([facility]) [facility] [address] [place] [address], * CT Angio Chest wo and/or w [...] GEMUSE QTc 447 ms GEMUSE P Wave Vidal 32 degrees GEMUSE R Vidal -23 degrees GEMUSE T Vidal 0 degrees GEMUSE ECG Interpretation Normal sinus [...] Signed Date: 03/21/2025 21:08 ET Workstation ID: [id number] Transcribed By: Self Edit Transcribed Date: 03/21/2025 [...] Signed Date: 03/21/2025 21:08 ET Workstation ID: [id number] Transcribed By: Self Edit Transcribed Date: 03/21/2025 21:07 ET us Verónica Gross MD CV VASCULAR PROCEDURES Final Res ult * (ABNORMAL) CBC (03/21/2025 4:47 PM EDT) WBC 7.6 4.8 - 10.8 K/[facility] LAB HEMETOLOGY METHOD 03/21/2025 5:10 PM EDT [facility] RBC 4.40(L) 4.50 - 5.50 M/mcL LAB HEMETOLOGY METHOD 03/21/2025 5:10 PM EDT [facility] Hemoglobin 13.8 13.5 - 17.5 g/dL LAB HEMETOLOGY METHOD 03/21/2025 5:10 PM EDT [facility] Hematocrit 42.8 42.0 - 54.0 % LAB HEMETOLOGY METHOD 03/21/2025 5:10 PM EDT [facility] MCV 96.4 79.0 - 98.0 FL LAB HEMETOLOGY METHOD 03/21/2025 5:10 PM EDT [facility] MCH 31.1 27.0 - 32.0 pcg LAB HEMETOLOGY METHOD 03/21/2025 5:10 PM EDT [facility] MCHC 32.2 32.0 - 37.0 g/dL LAB HEMETOLOGY METHOD 03/21/2025 5:10 PM EDT [facility] RDW 12.8 11.0 - 15.0 % LAB HEMETOLOGY METHOD 03/21/2025 5:10 PM EDT [facility] Platelets 211 130 - 400 K/mcL LAB HEMETOLOGY METHOD 03/21/2025 5:10 PM EDT [facility] MPV 10.3 7.0 - 11.0 FL LAB HEMETOLOGY METHOD 03/21/2025 5:10 PM EDT [facility] NRBC 0.0 <1.0 % LAB HEMETOLOGY METHOD 03/21/2025 5:10 PM EDT [facility] NRBC Absolute 0.00 <0.10 K/mcL LAB HEMETOLOGY METHOD 03/21/2025 5:10 PM [facility] Blood Venous blood specimen / Unknown Venipuncture / Unknown 03/21/2025 4:47 PM EDT 03/21/2025 5:05 PM EDT us Verónica Gross MD LAB BLOOD ORDERABLES Final Resul t [facility] [address] [place] [address], * (ABNORMAL) Basic Metabolic Panel (BMP) (03/21/2025 4:47 PM EDT) Only the most recent of4 resultswithin the time period is included. Sodium 140 133 - 145 mmol/L LAB CHEMISTRY METHOD 03/21/2025 5:29 PM [facility] Potassium 3.7 3.5 - 5.5 mmol/L LAB CHEMISTRY METHOD 03/21/2025 5:29 PM [facility] Chloride 104 96 - 110 mmol/L LAB CHEMISTRY METHOD 03/21/2025 5:29 PM [facility] CO2 29 21 - 32 mmol/L LAB CHEMISTRY METHOD 03/21/2025 5:29 PM [facility] Anion Gap 7 3 - 11 LAB CHEMISTRY METHOD 03/21/2025 5:29 PM [facility] Glucose 100 70 - 100 mg/dL LAB CHEMISTRY METHOD 03/21/2025 5:29 PM [facility] BUN 26(H) 5 - 25 mg/dL LAB CHEMISTRY METHOD 03/21/2025 5:29 PM [facility] Creatinine 1.21 0.70 - 1.30 mg/dL LAB CHEMISTRY METHOD 03/21/2025 5:29 PM [facility] eGFR 69 >=60 mL/min/1. 73m2 LAB CHEMISTRY METHOD 03/21/2025 5:29 PM [facility] Comment:Calculation based on the Chronic Kidney Disease Epidemiology Collaboration (CKD-EPI) equation refit without adjustment for race. BUN/Creatinine Ratio 21.5 LAB CHEMISTRY METHOD 03/21/2025 5:29 PM [facility] Calcium 8.8 8.5 - 10.5 mg/dL LAB CHEMISTRY METHOD 03/21/2025 5:29 PM EDT [facility] Blood Venous blood specimen / Unknown Venipuncture / Unknown 03/21/2025 4:47 PM EDT 03/21/2025 5:05 PM EDT Verónica Gross MD LAB BLOOD ORDERABLES Final Resul t Performing Organization Address [facility] de Phone Number [facility] [address] [place] [address], [place] [phone] * (ABNORMAL) Vancomycin, trough (02/27/2025 11:03 AM EDT) Vancomycin Trough 2.6(L) 10.0 - 20.0 mcg/mL LAB CHEMISTRY METHOD 02/27/2025 11:45 AM EDT [facility] Blood Venous blood specimen / Unknown Venipuncture / Unknown 02/27/2025 11:03 AM EDT 02/27/2025 11:08 AM EDT Demarcus Cage MD LAB BLOOD ORDERABLES Final Res ult Performing Organization Address [facility] de Phone Number [facility] [address] [place] [address], [place] [phone] * XR Abdomen 1 View (02/27/2025 10:20 AM EDT) Anatomical Region Laterality Modality Body Radiographic Vernell ging 02/27/2025 10:5 2 AM EDT Impressions 02/27/2025 10:53 AM EDT No acute findings. -------- FINAL REPORT -------- Dictated By: Mayur Zavala Dictated Date: 02/27/2025 10:52 ET Assigned Physician: Mayur Zavala Reviewed and Electronically Signed By: Mayur Zavala Signed Date: 02/27/2025 10:53 ET Workstation ID: [id number] Transcribed By: Self Edit Transcribed Date: 02/27/2025 [...] Signed Date: 02/27/2025 10:53 ET Workstation ID: [id number] Transcribed By: Self Edit Transcribed Date: 02/27/2025 10:52 ET us Annie OQUENDO IMG XR PROCEDURES Final Res ult * CBC auto differential (02/27/2025 5:36 AM EDT) Only the most recent of3 resultswithin the time period is included. WBC 8.6 4.8 - 10.8 K/mcL LAB HEMETOLOGY METHOD 02/27/2025 6:00 AM EDT [facility] RBC 4.50 4.50 - 5.50 M/mcL LAB HEMETOLOGY METHOD 02/27/2025 6:00 AM EDT [facility] Hemoglobin 14.3 13.5 - 17.5 g/dL LAB HEMETOLOGY METHOD 02/27/2025 6:00 AM EDT [facility] Hematocrit 44.0 42.0 - 54.0 % LAB HEMETOLOGY METHOD 02/27/2025 6:00 AM [facility] MCV 96.9 79.0 - 98.0 FL LAB HEMETOLOGY METHOD 02/27/2025 6:00 AM [facility] MCH 31.5 27.0 - 32.0 pcg LAB HEMETOLOGY METHOD 02/27/2025 6:00 AM [facility] MCHC 32.5 32.0 - 37.0 g/dL LAB HEMETOLOGY METHOD 02/27/2025 6:00 AM [facility] RDW 13.0 11.0 - 15.0 % LAB HEMETOLOGY METHOD 02/27/2025 6:00 AM [facility] Platelets 156 130 - 400 K/mcL LAB HEMETOLOGY METHOD 02/27/2025 6:00 AM [facility] MPV 10.7 7.0 - 11.0 FL LAB HEMETOLOGY METHOD 02/27/2025 6:00 AM [facility] NRBC 0.0 <1.0 % LAB HEMETOLOGY METHOD 02/27/2025 6:00 AM [facility] NRBC Absolute 0.00 <0.10 K/mcL LAB HEMETOLOGY METHOD 02/27/2025 6:00 AM [facility] Neutrophils Relative 57.2 % LAB HEMETOLOGY METHOD 02/27/2025 6:00 AM [facility] Lymphocytes Relative 29.7 % LAB HEMETOLOGY METHOD 02/27/2025 6:00 AM [facility] Monocytes Relative 9.7 % LAB HEMETOLOGY METHOD 02/27/2025 6:00 AM [facility] Eosinophils Relative 2.8 % LAB HEMETOLOGY METHOD 02/27/2025 6:00 AM [facility] Basophils Relative 0.4 % LAB HEMETOLOGY METHOD 02/27/2025 6:00 AM EDT [facility] Immature Granulocytes Relative 0.2 % LAB HEMETOLOGY METHOD 02/27/2025 6:00 AM EDT [facility] Neutrophils Absolute 4.89 1.50 - 7.00 K/mcL LAB HEMETOLOGY METHOD 02/27/2025 6:00 AM EDT [facility] Lymphocytes Absolute 2.54 1.00 - 5.00 K/mcL LAB HEMETOLOGY METHOD 02/27/2025 6:00 AM EDT [facility] Monocytes Absolute 0.83 0.20 - 1.00 K/mcL LAB HEMETOLOGY METHOD 02/27/2025 6:00 AM EDT [facility] Eosinophils Absolute 0.24 0.00 - 0.50 K/mcL LAB HEMETOLOGY METHOD 02/27/2025 6:00 AM EDT [facility] Basophils Absolute 0.03 0.00 - 0.20 K/mcL LAB HEMETOLOGY METHOD 02/27/2025 6:00 AM EDT [facility] Immature Granulocytes Absolute 0.02 0.00 - 0.03 K/mcL LAB HEMETOLOGY [facility] 02/27[facility]25 [facility] Venous blood specimen / Unknown Venipuncture / Unknown 02/27/2025 5:36 AM EDT 02/27/2025 5:54 AM EDT us Annie OQUENDO LAB BLOOD ORDERABLES Final Result [facility] [address] [place] [address], * (ABNORMAL) C-reactive protein (02/27/2025 5:36 AM EDT) Only the most recent of2 resultswithin the time period is included. Pathologist [facility] C-Reactive Protein 3.54(H) <=0.50 mg/dL LAB CHEMISTRY METHOD 02/27/2025 6:16 AM EDT [facility] Blood Venous blood specimen / Unknown Venipuncture / Unknown 02/27/2025 5:36 AM EDT 02/27/2025 5:54 AM EDT us Annie OQUENDO LAB BLOOD ORDERABLES Final Result [facility] ([facility]) [facility] [address] [place] [address], [place] [phone] * (ABNORMAL) TRANSTHORACIC ECHOCARDIOGRAM (TTE) COMPLETE W/ CONTRAST (02/26/2025 2:48 PM EDT) BSA 2.17 m2 CV PACS Left Atrium Minor Vidal 6.7 cm CV PACS Left Atrium Major Vidal 6.8 cm CV PACS LA Area Sys [...] Area 4.2 cm2 CV PACS MV Deceleration Obion 3.7 m/s2 CV PACS E Wave Deceleration [...] was difficult due to: poor endocardial visualization. Annie OQUENDO CV ECHO PROCEDURES Final Re sult * Magnesium (02/26/2025 5:29 AM EDT) [facility] Magnesium 2.4 1.9 - 2.6 mg/dL LAB CHEMISTRY METHOD 02/26/2025 7:15 AM EDT [facility] Blood Venous blood specimen / Unknown Venipuncture / Unknown 02/26/2025 5:29 AM EDT 02/26/2025 6:12 AM EDT Demarcus Cage MD LAB BLOOD ORDERABLES Final Res ult [facility] [address] [place] [address], [place] [phone] * Hemoglobin A1c (02/26/2025 5:29 AM EDT) [facility] Hemoglobin A1C 6.1 <6.5 % LAB CHEMISTRY METHOD 02/26/2025 11:16 AM EDT [facility] Mean Bld Glu Estim. 128 mg/dL LAB CHEMISTRY METHOD 02/26/2025 11:16 AM EDT [facility] Blood Venous blood specimen / Unknown Venipuncture / Unknown 02/26/2025 5:29 AM EDT 02/26/2025 6:13 AM EDT Verónica Pathak NP LAB BLOOD ORDERABLES Fin al Result Performing Organization Address City/[facility]/ZIP Co de Phone Number [facility] [address] [place] [address], [place] [phone] * MRSA molecular study (02/25/2025 9:18 PM EDT) MRSA Screen PCR Not Detected Not Detected LAB MICROBIOLOGY METHOD 02/25/2025 10:42 PM EDT [facility] Swab Both anterior nares / Unknown Non-blood Collection / Unknown 02/25/2025 9:18 PM EDT 02/25/2025 9:26 PM EDT Verónica Pathak NP LAB MICROBIOLOGY - GENER AL ORDERABLES Final Result [facility] [address] [place] [address], [place] [phone] * Lactate, with Reflex (02/25/2025 6:57 PM EDT) Pathologist [facility] LACTIC ACID 0.9 0.4 - 2.0 mmol/L LAB CHEMISTRY METHOD 02/25/2025 7:37 PM EDT [facility] Blood Venous blood specimen / Unknown Venipuncture / Unknown 02/25/2025 6:57 PM EDT 02/25/2025 7:06 PM EDT Alan Hu MD LAB BLOOD ORDERABLES Final Resul t [facility] [address] [place] [address], [place] [phone] * Blood Culture, Peripheral #2 (02/25/2025 6:57 [...] MICROBIOLOGY - GENERAL ORDER BABITA Final Result [facility] ([facility]) H[facility] [address] [place] [address], [place] [phone] from Last 3 Months Insurance [facility] [employer] Advance Directives * Full Code [...] currently active code status orders. Care Teams Boatwright Relationship Specialty Start Date End Date Marleen Jovel MD [address] [place] [id number] PCP - General Family Medicine 10/02/24
--- OUTSIDE RECORDS SUMMARY | 2025-04-27 12:16 | XMS_ITS | Encounter Summary ---
Author Organization [employer] Address [address] [place] [address] Care Team Providers Care Wharf Tender Helper Name Role Phone Marleen Jovel MD Primary Care Provider [phone] Encounter Details Date Type Department Care Team (Latest Contact Info) Description 04/27/2025 Travel Social History Tobacco Use Types Packs/Day [...] Description 05/10/2025 10:00 AM EST Office Visit [facility] [address] [place] [address] Marleen Jovel MD [address] [place] [address] documented as of this encounter Visit Diagnoses Not on filedocumented in this encounter Additional Health Concerns Assessment Noted Time PHQ-9 Depression Total Score: 8 03/25/20 25 10:21 AM EDT documented as of this encounter Care Teams Wharf Tender Helper Relationship Specialty Start Date End Date Marleen Jovel MD [address] [place] [address] PCP - General Family Medicine 10/28/23 documented as of this encounter
--- OUTSIDE RECORDS SUMMARY | 2025-04-27 12:16 | XMS_ITS | Encounter Summary ---
Author Organization [employer] Address [address] [place] [address] Care Team Providers Care Sheet Metal Worker Apprentice Name Role Phone Marleen Jovel MD Primary Care Provider [phone] Encounter Details Date Type Department Care Team (Late st Contact Info) Description 04/27/2025 Telephone [facility] [address] [place], [place] [phone] Violeta Ta, RN [address] [place], [place] [phone] Social History Tobacco Use Types Packs/Day Years [...] encounter Miscellaneous Notes * Telephone Encounter - Violeta Ta RN - 04/27/2025 10:03 AM EST Pt presented to the service desk lead, requesting appointment with PCP stating he has not seen her for a while. Looking back in the chart, pt last saw PCP in January 2024. 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 Pt had biopsy done at that time and has scheduled appointment. Pt reports some blood in urine that started after the biopsy without any other symptoms or pain. Advised could be related to the biopsy and to call the office today for guidance. Given appointment with PCP to catch up on health concerns per last provider. Given appointment 05/10 at 10:00. Pt given printed copy of the appointment and underst ands. documented in this encounter Plan of Treatment Upcoming Encounters Date Type Department Care Team ([facility] st Contact Info) Description 05/10/2025 10:00 AM EST Office Visit [facility] [address] [place] [address] Marleen Jovel MD [address] [place] [address] documented as of this encounter Visit Diagnoses Not on filedocumented in this encounter Additional Health Concerns Assessment Noted Time PHQ-9 Depression Total Score: 8 03/25/20 25 10:21 AM EDT documented as of this encounter Care Teams Sheet Metal Worker Apprentice Relationship Specialty Start Date End Date Marleen Jovel MD [address] [place] [address] PCP - General Family Medicine 10/28/23 documented as of this encounter
--- OUTSIDE RECORDS SUMMARY | 2025-04-27 12:16 | XMS_ITS | Encounter Summary ---
Author Organization [employer] Address [address] [place] [address] Care Team Providers Care Cd Manufacturing Supervisor Name Role Phone Marleen Jovel MD Primary Care Provider [phone] Encounter Details Date Type Department Care Team (Late st Contact Info) Description 03/22/2025 Orders Only [facility] [address] [place] [address] Provider, MD Wang Social History Tobacco Use [...] Description 05/10/2025 10:00 AM EST Office Visit [facility] [address] [place] [address] Marleen Jovel MD [address] [place] [address] documented as of this encounter Procedures Procedure [...] documented as of this encounter Care Teams Cd Manufacturing Supervisor Relationship Specialty Start Date End Date Marleen Jovel MD [address] [place] [address] PCP - General Family Medicine 10/28/23 documented as of this encounter
--- OUTSIDE RECORDS SUMMARY | 2025-04-27 12:16 | XMS_ITS | Clinical Summary ---
Author Organization [employer] Address [address] [facility] [address] [place] [address] Care Team Providers Care Melter Assistant Name Role Phone Marleen Jovel MD Primary Care Provider Allergies No known active allergies Medications * This document contains information received from the source organization and may not represent a complete record from that organization. tiZANidine (Zanaflex) 2 MG capsule Take 1 capsule (2 mg) by mouth every 8 (eight) hours if needed for muscle spasms. 90 capsule 1 10/28/19 24 Active Blood Pressure kit 1 Units Once per day. 1 kit 10/28/19 24 Active betamethasone valerate (Valisone) 0.1 % ointment Apply topically if needed in the morning and at bedtime (dryness). 45 g 11/14/19 24 Active cetirizine (ZyrTEC) 10 MG tabletIndications: Rhinosinusitis,All ergic conjunctivitis of both eyes Take 1 tablet (10 mg) by mouth Once per day. 30 tablet 11 09/18/19 25 026 Active Ketotifen Fumarate 0.035 % solutionIndication s:Allergic conjunctivitis of both eyes Administer 1 drop into affected eye(s) 2 times daily. 10 mL 09/18/19 25 Active albuterol 108 (90 Base) MCG/ACT inhalerIndications :Rhinosinusitis Inhale 2 puffs every 4 (four) hours if needed for wheezing or shortness of breath. 18 g 02/17/20 25 026 Active fluticasone furoate (Arnuity Ellipta) 100 MCG/ACT inhalerIndications :Rhinosinusitis Inhale 1 puff Once per day. Rinse mouth with water after use to reduce aftertaste and incidence of candidiasis. Do not swallow. 1 each 02/17/20 25 026 Active Spacer/Aero-Holdin g Chambers (OptiChamber Torri) [facility] [place] each every 4 (four) hours if needed (asthma). 1 each 02/17/20 25 Active hydroCHLOROthiazid e (HYDRODiuril) 25 MG tabletIndications: Bilateral leg edema,Essential hypertension Take 1 tablet (25 mg) by mouth Once per day. PLEASE DISCONTINUE AMLODIPINE 30 tablet 2 03/11/20 25 025 Active triamcinolone (Kenalog) 0.1 % ointmentIndication s:Venous stasis dermatitis Apply topically 2 times daily. 30 g 03/25/20 25 Active doxycycline (Vibra-Tabs) 100 MG tabletIndications: Cellulitis of lower extremity, unspecified laterality Take 1 tablet (100 mg) by mouth 2 times daily for 14 days. Take with a full glass of water and do not lie down for at least 30 minutes after. 28 tablet 04/20/20 25 025 Active amoxicillin (Amoxil) 875 MG tabletIndications: Cellulitis of lower extremity, unspecified laterality Take 1 tablet (875 mg) by mouth 2 times daily for 14 days. 28 tablet 04/20/20 25 025 Active furosemide (Lasix) 20 MG tabletIndications: Lower extremity edema Take 1 tablet (20 mg) by mouth Once per day. 3 tablet 04/20/20 25 026 Active triamcinolone (Kenalog) 0.1 % ointmentIndication s:Venous stasis dermatitis Apply topically 2 times daily. 30 g 04/27/20 25 Active Active Problems Problem Noted Date Diagnosed Date Lower extremity edema 04/20/2025 SOB (shortness of breath) 10/27/2024 Assessment & [...] referral in the system. Will send to [facility] [place] [place]. Please attach media from ECG done in [...] and letter was sent to patient. Encounters * This document contains information received from the source organization and may not represent a complete record from that organization. Date Type Department Care Team Description 04/27/2025 9:30 AM EST Office Visit [facility] [address] [place] [address] Nhung Bearden MD Venous stasis dermatitis (Primary Dx); Gross hematuria 04/27/2025 Telephone [facility] [address] [place] [phone] Violeta Ta RN 04/27/2025 Travel 04/20/2025 1:00 PM EDT Office Visit [facility] WALK-IN [address] [address] Trena Billings MD Cellulitis of lower extremity, unspecified laterality; Lower extremity edema 04/20/2025 Travel 04/01/2025 Telephone [facility] MEDICINE [address] [place] [phone] Marleen Jovel MD 03/31/2025 Orders Only [facility] External Provider, [facility] 03/25/2025 10:00 AM EDT Office Visit [facility] [address] [place] [address] Nhung Bearden MD Venous stasis dermatitis (Primary Dx); Essential hypertension; SOB (shortness of breath); Diastolic dysfunction; Other depression 03/25/2025 Travel 03/24/2025 Telephone [facility] [address] [place] [address] Marleen Jovel MD Chart Prep 03/22/2025 Orders Only [facility] [address] [place] [address] Wang Rubin MD 03/11/2025 11:00 AM EDT Office Visit [facility] [address] [place] [phone] Tru Lomeli MD Bilateral leg edema (Primary Dx); Essential hypertension [I10] 03/11/2025 Telephone [facility] [address] [address] Tru Lomeli MD 03/11/2025 Travel 03/09/2025 Orders Only GENERIC EXTERNAL DATA DEPARTMENT Provider, Generic External Data 03/03/2025 3:40 PM EDT Office Visit [facility] [address] [place] [address] Nhung Bearden MD Bilateral leg edema (Primary Dx); Venous stasis dermatitis; Pedal edema; Mild diastolic dysfunction 03/03/2025 Travel 03/02/2025 Telephone [facility] [address] [place] [address] Marleen Jovel MD Appointment Request 03/01/2025 Telephone [facility] [address] [place] [address] Nhung Bearden MD No Show 02/16/2025 10:00 AM EDT Office Visit [facility] [address] [place] [phone] Noel Conn MD Cellulitis of right leg (Primary Dx); Cellulitis of left leg; Lower extremity edema; Dyspnea on exertion; Rhinosinusitis 02/16/2025 Orders Only GENERIC EXTERNAL DATA DEPARTMENT Provider, Generic External Data 02/16/2025 Telephone [facility] MED[facility]INE [address] [place] [address] [phone] Kimmy Ndiaye, [employer]ET[employer] Expect 02/16/2025 Telephone [facility] MED[facility] [address], [place] [phone] Kimmy Ndiaye, RN Nurse Triage 02/12/2025 8:40 AM EDT Office Visit [facility] [address] [place] [address] Tru Lomeli MD Pedal edema (Primary Dx) 02/12/2025 Results Follow-Up [facility] [address] [address] Tru Lomeli MD Comprehensive Metabolic Panel, B Type Natriuretic Peptide (BNP), CBC auto differential 02/12/2025 Orders Only GENERIC EXTERNAL DATA DEPARTMENT Provider, Generic External Data 02/12/2025 Travel from Last 3 Months Immunizations Immunization Administration [...] Pulse 70 04/27/2025 9:33 AM EST Temperature 35.7 C (96.2 F) 04/20/2025 12:55 PM EDT Respiratory Rate 20 04/27/2025 9:33 AM EST Oxygen Saturation 97% 04/27/2025 9:33 AM EST Inhaled Oxygen Concentration - - Weight 98 kg (216 lb) 04/27/2025 9:33 AM EST Height 169 cm (5' 6.54 ) 04/27/2025 9:33 AM EST Body Mass Index 34.3 04/27/2025 9:33 AM EST Plan of Treatment Upcoming Encounters Date Type Department Care Team (Late st Contact Info) Description 05/10/2025 10:00 AM EST Office Visit [facility] MED [facility] PEDS [address] [place] [address] Marleen Jovel MD [address] [place] [address] Health Maintenance Due Date Last Done Comments [...] 03/25/2026 03/25/2025 Depression Screening 03/25/2026 03/25/2025, 03/25/20 25 Disability Screening 03/25/2026 03/25/2025 SDOH Screening 03/25/2026 03/25/2025 Tobacco Screening 04/27/2026 04/27/2025 Lipid Panel 10/27/2028 10/28/2023 HIV Screening Completed [...] Procedure Name Priority Date/Time Associated Diagnosis Comments FL BARIUM SWALLOW MODIFIED Routine 03/31/2025 2:22 PM EDT ECG 12-LEAD Routine 03/21/2025 9:[address] CHEST ANGIO W AND WO IV CONTRAST Routine 03/21/2025 8:53 AM EDT PROSTATE BIOPSY 1-20 Routine 03/09/2025 8:25 AM EDT VAS US LOWER EXTREMITY VENOUS DUPLEX BILATERAL Routine [...] Routine 02/12/2025 8:28 AM EDT Pedal edema HEPATITIS C AB W/REFL TO HCV RNA, [...] Recently Relevant to Health Maintenance Results * FL BARIUM SWALLOW MODIFIED (03/31/2025 2:22 PM EDT) Anatomical Region Laterality Modality Head, Neck Radiographic Vernell ging 03/31/2025 2:2 2 PM EDT Narrative 03/31/2025 3:18 PM EDT [place] [address] Fluoroscopy Report Signed Patient: Howard Junior MR#: [id number] : 1965 Acct:[id number] Age/Sex: 59 / M ADM Date: 03/31/25 Loc: HO.XRAY Attending Dr: Zonia Gongora MD Ordering Physician: Zonia Gongora MD Date of Service: 03/31/25 Procedure(s): FL Modified Barium Swallow Accession Number(s): [id number] cc: Marleen Jovel MD; Zonia Gongora MD Reason for Exam: R13.10 - Dysphagia, unspecified EXAMINATION: XR MODIFIED BARIUM SWALLOW CLINICAL INFORMATION: Dysphagia, unspecified. Laryngeal penetration on barium swallow 12/28/2024. COMPARISON: 12/28/2024. TECHNIQUE: Modified barium swallow was performed under lateral fluoroscopy with patient in standing position. Barium mixed with solids and liquids of different consistencies was administered by the speech pathologist. Examination was recorded in the fluoroscopy suite. FINDINGS: The patient was given several consistencies. Trace, transient laryngeal penetration was noted on thin liquids. There was no evidence of aspiration. FLUOROSCOPY TIME: 1 minute, 38 seconds Number of Spot Images: N/A DOSE AREA PRODUCT: 1064 uGy-m2 (microgray-meter squared) FL/FL Modified Barium Swallow IMPRESSION: 1. Trace laryngeal penetration on thin liquids without evidence of subglottic aspiration. Please refer to the full speech therapy report to follow for further detail. Electronically signed by: Alexandro Blandon MD 03/31/2025 03:15 PM EDT RP Dictated By: Alexandro Blandon MD Signed By: <Electronically signed by Alexandro Blandon MD in OV> 03/31/25 1515 DD/ 1422 TD/TT: 03/31/25 1445 Welding Machine Operator Plasma Arc: Procedure Note Donotuseinterpreter, Image - 03/31/[address] [address] Fluoroscopy Report Signed Patient: Howard JuniorMR#: [id number] : 1965Acct:[id number] Age/Sex: 59 / MADM Date: 03/31/25 Loc: HO.XRAY Attending Dr: Zonia Gongora MD Ordering Physician: Zonia Gongora MD Date of Service: 03/31/25 Procedure(s): FL Modified Barium Swallow Accession Number(s): [id number] cc: Marleen Jovel MD; Zonia Gongora MD Reason for Exam: R13.10 - Dysphagia, unspecified EXAMINATION: XR MODIFIED BARIUM SWALLOW CLINICAL INFORMATION: Dysphagia, unspecified. Laryngeal penetration on barium swallow 12/28/2024. COMPARISON: 12/28/2024. TECHNIQUE: Modified barium swallow was performed under lateral fluoroscopy with patient in standing position. Barium mixed with solids and liquids of different consistencies was administered by the speech pathologist. Examination was recorded in the fluoroscopy suite. FINDINGS: The patient was given several consistencies. Trace, transient laryngeal penetration was noted on thin liquids. There was no evidence of aspiration. FLUOROSCOPY TIME: 1 minute, 38 seconds Number of Spot Images: N/A DOSE AREA PRODUCT: 1064 uGy-m2 (microgray-meter squared) FL/FL Modified Barium Swallow IMPRESSION: 1. Trace laryngeal penetration on thin liquids without evidence of subglottic aspiration. Please refer to the full speech therapy report to follow for further detail. Electronically signed by: Alexandro Blandon MD 03/31/2025 03:15 PM EDT RP Dictated By: Alexandro Blandon MD Signed By: <Electronically signed by Alexandro Blandon MD in OV> 03/31/25 1515 DD/ 1422 TD/TT: 03/31/25 1445 Welding Machine Operator Plasma Arc: [facility] External Provider IMG FLU OROSCOPY PROCEDURES Final Result * ECG 12 lead (03/21/2025 9:02 AM EDT) Historical Provider ECG ORDERABLES Final Res ult * CT CHEST ANGIO W AND WO IV CONTRAST (03/21/2025 8:53 AM EDT) Anatomical Region Laterality Modality Computed Tomogra phy Historical Provider IMG CT PROCEDURES Final R esult * Prostate biopsy 1-20 (03/09/2025 8:25 AM EDT) 03/09/2025 8:25 AM EDT 03/09/2025 10:30 AM EDT Narrative [facility] - 04/21/2025 9:11 AM EDT ----- ------- Name: Alli OrtizHoward Age/Sex: 59/M : 1965 Unit#: [id number] Attend Dr: Aravind Wilkins MD Re03/09/25 Status: DEP REF Location: [facility] Disch: ----- ------- SPEC : [id number] RECD: 03/09/25 STATUS: ADDY SUTTON NUM: [id number] KIET: 03/09/25 [facility] DR: Aravind Wilkins MD ENTERED: 03/09/25 SP TYPE: Surgical OTHR DR: Marleen Jovel MD ORDERED: Prostate biopsy COMMENTS: Block I sent to [facility] on 03/31/25. Addendum Addendum 1 Entered: 04/21/25 Please see Prolaris Biopsy Test report from [facility] with the following results (part G): - Prolaris molecular score: 4.9 (single-modal treatment) Testing performed at [facility], [place], [place]. See report in its entirety in the EMR - Reports/Pathology section as a scanned report (camera icon). If appropriate, a copy has also been sent to the ordering provider's office. Addendum Signed (signature on file) Annalee Mazariegos MD 04/21/25 0911 ----- ------- Diagnosis A. Prostate, left base lateral, core [...] right base lateral, core biopsy: Prostatic adenocarcinoma, Leslee score 3+3=6 (Grade group 1) involving 16% of the tissue core. H. Prostate, right base medial, core biopsy: Benign prostatic tissue. I. Prostate, right mid lateral, core biopsy: Prostatic adenocarcinoma, Perham score 3+3=6 (Grade group 1) involving 55% of the tissue core. J. Prostate, right mid medial, core biopsy: Prostatic adenocarcinoma, Leslee score 3+3=6 (Grade group 1) involving 10% of the tissue core. K. Prostate, right apex lateral, core biopsy: Prostatic adenocarcinoma, Leslee score 3+3=6 (Grade group 1) involving 12% of the tissue core. L. Prostate, right apex medial, core biopsy: Benign prostatic tissue. Data synopsis - Prostate needle biopsy Histologic type: Acinar adenocarcinoma Histologic grade: Perham score: 3+3=6 (G, I, J, K) % of pattern 4: N/A CONTINUED ON NEXT PAGE ----- ------- Name: Howard Junior Age/Sex: 59/M : 1965 Unit#: [id number] Attend Dr: Aravind Wilkins MD Re03/09/25 Status: DEP REF Location: [facility] Disch: ----- ------- SPEC : [id number] RECD: 03/09/25 STATUS: ADDY SUTTON NUM: [id number] KIET: 03/09/[address]: Aravind Wilkins MD ENTERED: 03/09/25-8408 SP TYPE: Surgical OTHR DR: Marleen Jovel MD ORDERED: Prostate biopsy COMMENTS: Block I sent to [facility] on 03/31/25. Diagnosis (Continued) % of pattern 5: N/A Grade group: 1 Tumor quantitation: Number cores positive: 4 Total number of cores: 12 % of tissue involved: See above for details Periprostatic fat inv.: Not identified Seminal vesicle inv.: Not identified Perineural inv.: Not identified LVI: Not identified Clinical History Elevated prostate specific antigen (PSA) Microscopic Description Microscopic sections reviewed. Material Received [...] medial are two thin and delicate [facility] CONTINUED ON NEXT PAGE ----- ------- Name: Howard Junior Age/Sex: 59/M : 1965 Unit#: [id number] Attend Dr: Aravind Wilkins MD Re03/09/25 Status: DEP REF Location: [facility] Disch: ----- ------- SPEC : [id number] RECD: 03/09/25-1029 STATUS: ADDY SUTTON NUM: [id number] KIET: 03/09/2525 [facility] DR: Aravind Wilkins MD ENTERED: 03/09/25-1107 SP TYPE: Surgical OTHR DR: Marleen Jovel MD ORDERED: Prostate biopsy COMMENTS: Block I sent to [facility] on 03/31/25. Gross Description (Continued) cylindrical threads of tissue measuring 0.6 and [...] in toto in a cassette labeled F. Part G: Received in formalin labeled right [...] L. CEDS This case was reviewed intradepartmentally. CONTINUED ON NEXT PAGE ----- ------- Name: Howard Junior Age/Sex: 59/M : 1965 Unit#: [id number] Attend Dr: Aravind Wilkins MD Re03/09/25 Status: DEP REF Location: [facility] Disch: ----- ------- SPEC : [id number] RECD: 03/09/25 STATUS: ADDY SUTTON NUM: [id number] KIET: 03/09/25 [facility] DR: Aravind Wilkins MD ENTERED: 03/09/25-1107 SP TYPE: Surgical OTHR DR: Marleen Jovel MD ORDERED: Prostate biopsy COMMENTS: Block I sent to [facility] on 03/31/25. IHC S/NG Disclaimer NOTE: Unless otherwise stated, all tissue is formalin-fixed and paraffin-embedded. Some or all of the immunohistochemical tests reported herein may have been developed and their performance characteristics determined by [facility]. They have not been cleared or approved by the U.S. Food and Drug Administration (FDA). However, the FDA has determined that such clearance or approval is not necessary. This laboratory is certified under the Clinical Laboratory Improvement Amendments of 1988 (CLIA) as qualified to perform high complexity clinical laboratory testing. Copies To: Aravind Wilkins MD [facility] [place] [place] [facility] [address] [place] [address] [address] [place] [address] Marleen Jovel MD [address] [address] ----- ------- Signed (signature on file) Annalee Mazariegos MD 03/11/25 1206 ----- ------- END OF REPORT us Generic External Data Provider LAB PATHOLOGY ORD ERABLES Final Result [facility] [address] [place] [address] [phone] * [facility] US Lower Extremity Venous Duplex Bilateral (02/16/2025 2:33 PM EDT) 02/16/2025 2:33 PM EDT Narrative [facility] - 02/16/2025 3:02 PM EDT [place] [address] Ultrasound Report Signed Patient: Howard Junior MR#: [id number] : 1965 Acct:[id number] Age/Sex: 59 / M ADM Date: 02/16/25 Loc: .ED Attending Dr: Ordering Physician: Fredy Villalobos Date of Service: 02/16/25 Procedure(s): US venous duplex LE BI Accession Number(s): [id number] cc: Fredy Villalobos; Marleen Jovel MD EXAMINATION: [...] 02/16/25 1500 DD/ 1433 TD/TT: 02/16/25 1447 Welding Machine Operator Plasma Arc: Procedure Note Donotuseinterpreter, Image - 02/16/2025 [place] [address] Ultrasound Report Signed Patient: Howard JuniorMR#: [id number] : 1965Acct:[id number] Age/Sex: 59 / MADM Date: 02/16/25 Loc: .ED Attending Dr: Ordering Physician: Fredy Villalobos Date of Service: 02/16/25 Procedure(s): US venous duplex LE BI Accession Number(s): [id number] cc: Fredy Villalobos; Marleen oJvel MD EXAMINATION: US TRIPLEX LOWER EXTREMITY, BILATERAL [...] 02/16/25 1500 DD/ 1433 TD/TT: 02/16/25 1447 Welding Machine Operator Plasma Arc: [facility] External Provider CV VASC ULAR PROCEDURES Final Result [facility] [address] [place] [phone] * (ABNORMAL) CBC auto differential (02/16/2025 1:14 PM EDT) Only the most recent of2 resultswithin the time period is included. White Blood Count 6.7 4.8 - 10.8 X10*3/uL [facility] Red Blood Count 4.53(L) 4.60 - 5.80 X10*6/uL [facility] Hemoglobin 14.6 14.0 - 18.0 g/dl [facility] Hematocrit 43.2 42.0 - 52.0 % [facility] Mean Corpuscular Volume 95.4 80.0 - 98.0 fL [facility] Mean Corpuscular Hemoglobin 32.2 27.0 - 33.0 pg [facility] Mean Corpuscular HGB Conc 33.8 31.0 - 36.0 g/dl [facility] Red Cell Distribution Width 12.9 11.0 - 16.0 % [facility] Platelet Count 188 160 - 400 X10*3/uL [facility] Mean Platelet Volume 10.1 9.4 - 12.4 fL [facility] Neutrophils Percent Auto 54.9 45 - 73 % [facility] Imm Gran Pct Auto 0.3 0.0 - 0.4 % [facility] Lymphocytes Percent Auto 30.5 20 - 40 % [facility] Monocytes Percent Auto 11.1(H) 2 - 11 % [facility] Eosinophils Percent Auto 2.8 0 - 4 % [facility] Basophils Percent Auto 0.4 0 - 2 % [facility] NRBC Pct Auto 0.0 0.0 - 0.2 /100WBC [facility] Neutrophils Absolute Auto 3.7 2.0 - 8.3 x10*3/uL [facility] Imm Gran Abs Auto 0.02 0.00 - 0.03 X10*3/uL [facility] Lymphocytes Absolute Auto 2.0 1.2 - 4.9 X10*3/uL [facility] Monocytes Absolute Auto 0.7 0.1 - 1.2 X10*3/uL [facility] Eosinophils Absolute Auto 0.2 0.0 - 0.4 X10*3/uL [facility] Basophils Absolute Auto 0.0 0.0 - 0.2 X10*3/uL [facility] NRBC Abs Auto 0.000 0.0 - 0.012 X10*3/uL [facility] 02/16/2025 1:14 PM EDT 02/16/2025 1:16 PM EDT us Generic External Data Provider LAB BLOOD ORDERAB LES Final Result [facility] [address] [place] [phone] * Sed Rate by Modified Aaron (02/16/2025 1:14 PM EDT) Erythrocyte Sedimentation Rate 13 0 - 15 MM/HR [facility] Comment:Patients with polycy themia and many hemoglobin abnormalitiesmay have depressed sed rates whereas patients with anemiamay have elevated sed rates. 02/16/2025 1:14 PM EDT 02/16/2025 1:16 PM EDT us Generic External Data Provider LAB BLOOD ORDERAB LES Final Result Performing Organization Address City/[facility]/ZIP Co de Phone Number [facility] [address] [place] [address] [phone] * (ABNORMAL) C-reactive Protein (02/16/2025 1:14 PM EDT) C Reactive Protein 1.09(H) < or = 0.50 mg/dL [facility] 02/16/2025 1:14 PM EDT 02/16/2025 1:16 PM EDT Generic External Data Provider LAB BLOOD ORDERAB LES Final Result Performing Organization Address [facility] Co de Phone Number [facility] [address] [place] [phone] * Comprehensive Metabolic Panel (02/16/2025 1:14 PM EDT) Only the most recent of2 resultswithin the time period is included. Sodium 141 135 - 145 mmol/L [facility] Potassium 3.7 3.3 - 5.1 mmol/L [facility] Chloride 106 96 - 108 mmol/L [facility] Carbon Dioxide 27 22 - 29 mmol/L [facility] Anion Gap 12 12 - 20 [facility] Urea Nitrogen (BUN) 14 9 - 16 mg/dL [facility] Creatinine, Serum 0.91 0.5 - 1.4 mg/dL [facility] Creatinine Clr Calc Pharmacy 96.0 [facility] Comment:eGFR (calculated fro m the MDRD study equation) and eCrCl(calculated from the Cockcroft-Gault equation) are based ondifferent parameters and may not yield comparable results.If eCrCl result is absurd, please check patient'sheight/weight. Estimated Glomerular Filt Rate >60 [facility] Comment:Chronic Kidney Disea se: Estimated GFR < 60 mL/min/1.23j3Ccrkrt Kidney Disease: Estimated GFR < 15 mL/min/1.73m2 Glucose 87 60 - 115 mg/dL [facility] Calcium 9.1 8.4 - 10.2 mg/dL [facility] Bilirubin, Total 0.4 0.0 - 1.0 mg/dL [facility] Aspartate Amino Transferase 23 5 - 37 U/L [facility] Alanine Aminotransferase 30 0 - 40 U/L [facility] Total Protein 7.1 6.5 - 8.0 g/dL [facility] Albumin Level 4.3 3.5 - 5.0 g/dL [facility] Alkaline Phosphatase 84 39 - 117 U/L [facility] 02/16/2025 1:14 PM EDT 02/16/2025 1:16 PM EDT us Generic External Data Provider LAB BLOOD ORDERAB LES Final Result Performing Organization Address City/State/[facility] Co de Phone Number [facility] [address] [place] [phone] * XR TIBIA FIBULA 2 VW BILATERAL (02/16/2025 12:35 PM EDT) Anatomical Region Laterality Modality Radiographic Vernell ging 02/16/2025 12:3 5 PM EDT Narrative 02/16/2025 1:46 PM EDT [address] [address] XRay Report Signed Patient: Howard Junior MR#: [id number] : 1965 Acct:[id number] Age/Sex: 59 / M ADM Date: 02/16/25 Loc: .ED Attending Dr: Ordering Physician: Fredy Villalobos Date of Service: 02/16/25 Procedure(s): XR Tibia Fibula Marty 2V Accession Number(s): [id number] cc: Fredy Villalobos; Marleen Jovel MD Exam: [...] 02/16/25 1344 DD/ 1235 TD/TT: 02/16/25 1335 Welding Machine Operator Plasma Arc: Procedure Note Donotuseinterpreter, Image - 02/16/2025 [place] [address] XRay Report Signed Patient: Howard JuniorMR#: [id number] : 1965Acct:[id number] Age/Sex: 59 / MADM Date: 02/16/25 Loc: .ED Attending Dr: Ordering Physician: Fredy Villalobos Date of Service: 02/16/25 Procedure(s): XR Tibia Fibula Marty 2V Accession Number(s): [id number] cc: Fredy Villalobos; Marleen Jovel MD Exam: [...] 02/16/25 1344 DD/ 1235 TD/TT: 02/16/25 1335 Welding Machine Operator Plasma Arc: [facility] External Provider IMG XR PROCEDURES Final Result * (ABNORMAL) PSA,Total (02/12/2025 10:08 AM EDT) Prostate Specific Antigen 5.41(H) <0.05 - 4.0 ng/mL [facility] Comment:PSA methodology: Stas Jackson i ChemiluminescentMicroparticle Immunoassay (CMIA) 02/12/2025 10:0 8 AM EDT 02/12/2025 11:51 AM EDT Generic External Data Provider LAB BLOOD ORDERAB LES Final Result Performing Organization Address [facility] Co de Phone Number [facility] [address] [place] [phone] * (ABNORMAL) B Type Natriuretic Peptide (BNP) (02/12/2025 10:08 AM EDT) B Type Natriuretic Peptide 133(H) <100 pg/mL [facility] Blood Venous blood specimen / Unknown 02/12/2025 10:08 AM EDT 02/12/2025 11:50 AM EDT Tru Lomeli MD LAB BLOOD ORDERABLES Final Resul t Performing Organization Address [facility] Co de Phone Number [facility] [address] [place] [phone] * XR Chest 2 Views (02/12/2025 8:28 AM EDT) Anatomical Region Laterality Modality Chest Radiographic Vernell ging 02/12/2025 8:28 AM EDT Narrative 02/12/2025 9:26 AM EDT [address] [address] XRay Report Signed Patient: Howard Junior MR#: [id number] : 1965 Acct:[id number] Age/Sex: 59 / M ADM Date: 02/12/25 Loc: [facility] Attending Dr: Tru Lomeli MD Ordering Physician: Tru Lomeli MD Date of Service: 02/12/25 Procedure(s): XR chest 2V Accession Number(s): [id number] cc: Tru Lomeli MD EXAMINATION: XR CHEST [...] in OV> 02/12/25922 DD/ 7 TD/TT: 02/12/25914 Welding Machine Operator Plasma Arc: Procedure Note Donotuseinterpreter, Image - 02/12/[address] [address] XRay Report Signed Patient: Howard JuniorMR#: [id number] : 1965Acct:[id number] Age/Sex: 59 / MADM Date: 02/12/25 Loc: [facility] Attending Dr: Tru Lomeli MD Ordering Physician: Tru Lomeli MD Date of Service: 02/12/25 Procedure(s): XR chest 2V Accession Number(s): [id number] cc: Tru Lomeli MD EXAMINATION: XR CHEST [...] in OV> 02/12/2523 DD/ 7 TD/TT: 02/12/25914 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 Blood Venous blood specimen / Unknown 10/28/2023 10:49 AM EDT 10/28/2023 2:07 PM EDT us Marleen Jovel MD LAB BLOOD ORDERABLES Final Re sult [facility] [address] [place] [phone] * HIV-1/2 Antigen and Antibodies, Fourth Generation, with Reflexes (10/28/2023 10:49 AM EDT) HIV AB/AG Nonreactive Nonreactive [facility] Comment:HIV-1 p24 Ag and/or HIV-1/HIV-2 Ab not detected.A test result that is nonreactive does not exclude thepossibility of exposure to or infection with HIV-1 and/orHIV-2. Nonreactive results in this assay for individualswith prior exposure to HIV-1 and/or HIV-2 may be due toantigen and antibody levels that are below the limit ofdetection of this assay.The Heart [employer]acor HIV Ag/Ab Combo assay result andsupplemental assay results should be interpreted inconjunction with the patient's clinical presentation,history and other laboratory results. If the results areinconsistent with clinical evidence, additional testing issuggested to confirm the result. Blood Venous blood specimen / Unknown 10/28/2023 10:49 AM EDT 10/28/2023 2:07 PM EDT us Marleen Jovel MD LAB BLOOD ORDERABLES Final Re sult [facility] [address] [place] [phone] * (ABNORMAL) Lipid Panel, Standard (10/28/2023 10:49 AM EDT) Triglycerides 62 <150 mg/dL [facility] Comment:Desirable Triglyceri de: less than 150 mg/dLBorderline High Triglyceride 150-199 mg/dLHigh Triglyceride: 200-499 mg/dLVery High Triglyceride: greater than or equal to 5OO mg/dL Cholesterol 174 <200 mg/dL [facility] Comment:Desirable Cholestero l: less than 200 mg/dLBorderline High Cholesterol: 200-239 mg/dLHigh Cholesterol: greater than 239 mg/dL LDL Cholesterol Calculated 107(H) <100 mg/dL [facility] Comment:Desirable LDL: less than 100 mg/dLNear Optimal/Above Optimal LDL: 110- 129 mg/dLBorderline High LDL: 130-159 mg/dLHigh LDL: 160-189 mg/dLVery High LDL: greater than or equal to 190 mg/dL HDL Cholesterol 55 >40 mg/dL [facility] Comment:Desirable HDL: great er than 40 mg/dL Note: This HDL assay may give artificially low results in patients with liver disease. Blood Venous blood specimen / Unknown 10/28/2023 10:49 AM EDT 10/28/2023 2:07 PM EDT us Marleen Jovel MD LAB BLOOD ORDERABLES Final Re sult [facility] [address] [place] [phone] [phone] from Last 3 Months or Most Recently Relevant to Health Maintenance Insurance [facility] Care Teams Melter Assistant Relationship Specialty Start Date End Date Marleen Jovel MD [address] [place] [phone] PCP - General Family Medicine 10/28/23
[2025-04-27 14:19] LABS: Appearance Urine Clear; Glucose Urine UA Negative (Negative); PH 6.5 (5.0-9.0); Specific Gravity - Urine 1.015 (1.005-1.025)
== END 2025-04-27 10:27 | disposition home or self-care (01) ==
LOC: HO.CHCLDS 10:26
PROVIDERS: PCP Internal Medicine; Visit Provider Internal Medicine
DX: R31.0 Gross hematuria (principal)
CPT/HCPCS: 81003

== ENCOUNTER → 2025-05-14 08:46 | Outpatient (BNV) | payer OTHER, SELFPAY | PROVIDERS: PCP Internal Medicine; Visit Provider Radiology Diagnostic Radiology | DX: R93.89 Abnormal findings on diagnostic imaging of other specified body structures (principal); Z80.42 Family history of malignant neoplasm of prostate | CPT/HCPCS: 72197; 76377 ==

== ENCOUNTER 2025-05-14 08:47 | Outpatient (REF) | payer OTHER, SELFPAY ==
--- OUTSIDE RECORDS SUMMARY | 2025-05-10 10:00 | XMS_ITS | Encounter Summary ---
Author Organization [employer] Address [address] [place] [address] [address] [place] [address] Care Team Providers Care Honest John Rocket Crew Member Name Role Phone Marleen Jovel MD Primary Care Provider [phone] Reason for Referral * Consultation (Routine) - Pending Review Specialty Diagnoses / Procedures Referred By Jaelyn smart Referred To Contact General Surgery Diagnoses Umbilical hernia without obstruction and without gangrene Marleen Jovel MD [address] [place] [address] Phone: tel: fax: Referral ID Status Reason Start Date Expiration Date Visits Requested Visits Authorized [id number] Pending Review Specialty Services Required 5 05/10/2026 1 1 * Consultation (Urgent) - Pending Review Specialty Diagnoses / Procedures Referred By Jaelyn smart Referred To Contact Gastroenterology Diagnoses Colon cancer screening Marleen Jovel MD [address] [place] [address] Phone: tel: fax: Referral ID Status Reason Start Date Expiration Date Visits Requested Visits Authorized [id number] Pending Review Specialty Services Required 5 05/10/2026 1 1 Reason for Visit * Reason Comments Follow-up Encounter Details Date Type Department Care Team ([facility] st Contact Info) Description 05/10/2025 10:00 AM EST Office Visit [facility] MED & PEDS [address] [place], [place] [phone] Marleen Jovel MD [address] [place] [address] Elevated serum creatinine (Primary Dx); Prostate cancer (CMS/HCC) (HCC); Essential hypertension; Venous stasis dermatitis; Encounter for immunization; Colon cancer screening; Umbilical hernia without obstruction and without gangrene; Grade III hemorrhoids Social History Tobacco Use Types Packs/Day Years [...] your housing situation today? I have machelle rosanna 03/25/[address] you li [...] Sign Reading Time Taken Comments Blood Pressure 120/70 05/10/2025 9:37 AM EST Pulse 82 05/10/2025 9:37 AM EST Temperature 36.4 C (97.5 F) 05/10/2025 9:37 AM EST Respiratory Rate 20 05/10/2025 9:37 AM EST Oxygen Saturation 97% 05/10/2025 9:37 AM EST Inhaled Oxygen Concentration - - Weight 99.6 kg (219 lb 9.6 oz) 05/10/2025 9:37 A M EST Height 170.2 cm (5' 7 ) 05/10/2025 9:37 AM EST Body Mass Index 34.39 05/10/2025 9:37 AM EST documented in this encounter Progress Notes * Marleen Jovel MD - 05/10/2025 10:00 AM EST Images from the original note were not included. Subjective Patient ID: Howard Carson is a 59 y.o. male who presents for Follow-up. Howard Carson is a 59-year-old male with a history of hypertension, prostate cancer, and umbilical hernia presenting for follow-up of multiple medical issues. He brought his home blood pressure machineshowing consistently elevated readings with systolic pressures ranging from 125-160 mmHg and diastolic pressures consistently high at 86-93 mmHg, with the bottom number being elevated almost all the time. He is currently taking hydrochlorothiazide 25 mg for blood pressure control. The patient reports being congested for 2 days. He has a history of prostate cancer with low-level findings on biopsy, currently being managed medically by Dr. Wilkins rather than surgically. He deniescurrent bleeding and reports no blood in his urine when checked. He continues to have issues with stasis dermatitis on his feet and has been seen by a vascular doctor who provided compression shoes, though he reports these hurt and cause his feet to swell. He mentions his body gets swollen and questions if he might be allergic to the material, though he denies being allergic to cotton. The patient reports rectal pain when having bowel movements, stating he has to push a lot when he poops. He typically has bowel movements twice a day, with pain occurring when the stool is coming out. He sometimes sees blood in the stool. He had umbilical hernia surgery in September 2020, with some confusion about follow- up appointments. 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 Medical History - Prostate cancer with low-level biopsy findings, currently followed by Dr. 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 Gastrointestinal: Positive for rectal pain with bowel movements, reports having to push hard duringdefecation, bowel movements twice daily, occasional blood in stool. Genitourinary: Positive for decreased urination lately, negative for blood in urine. Review of Systems Objective BP 120/70 Pulse 82 Temp 97.5 ??F (36.4 ??C) (Oral) Resp 20 Ht 5' 7 (1.702 m) Wt 219 lb 9.6 oz (99.6 kg) SpO2 97% BMI 34.39 kg/m?? Physical Exam Exam conducted with a sound controller present. Constitutional: General: He is not in acute distress. Appearance: He is obese. He is not ill-appearing. HENT: Head: Normocephalic and atraumatic. Nose: No congestion. Cardiovascular: Rate and Rhythm: Regular rhythm. Heart sounds: No murmur heard. Pulmonary: Effort: Pulmonary effort is normal. No respiratory distress. Breath sounds: Normal breath sounds. Abdominal: General: Abdomen is protuberant. Bowel sounds are normal. Tenderness: There is no abdominal tenderness. Hernia: A hernia is present. Hernia is present in the umbilical area. Genitourinary: Rectum: Internal hemorrhoid present. Musculoskeletal: Cervical back: Normal range of motion. Feet: Right foot: Skin integrity: Dry skin present. Left foot: Skin integrity: Erythema and dry skin present. Comments: Stasis dermatitis worse in left rene Edema on bilateral legs Neurological: General: No focal deficit present. Mental Status: He is alert. Psychiatric: Mood and Affect: Mood normal. Assessment/Plan Problem List Items Addressed This Visit Essential hypertension Relevant Medications olmesartan-hydroCHLOROthiazide (Benicar HCT) 20-12.5 MG tablet Umbilical hernia without obstruction and without gangrene Relevant Medications hydrocortisone (Anusol-HC) 2.5 % rectal cream docusate sodium (Colace) 100 MG capsule senna-docusate sodium (Senokot-S) 8.6-50 MG tablet polyethylene glycol, PEG, 3350 (MiraLax) 17 GM/SCOOP powder Other Relevant Orders Referral to General Surgery Venous stasis dermatitis Relevant Medications olmesartan-hydroCHLOROthiazide (Benicar HCT) 20-12.5 MG tablet Other Visit Diagnoses Elevated serum creatinine - Primary Relevant Medications olmesartan-hydroCHLOROthiazide (Benicar HCT) 20-12.5 MG tablet Other Relevant Orders Basic Metabolic Panel Prostate cancer (CMS/HCC) (HCC) Relevant Medications dutasteride (Avodart) 0.5 MG capsule Encounter for immunization Relevant Orders FLU VACCINE TRIVALENT [id number] (Fluarix) 19 yrs + (Completed) Hepatitis B Surface Antibody, Qualitative Colon cancer screening Relevant Medications hydrocortisone (Anusol-HC) 2.5 % rectal cream docusate sodium (Colace) 100 MG capsule senna-docusate sodium (Senokot-S) 8.6-50 MG tablet polyethylene glycol, PEG, 3350 (MiraLax) 17 GM/SCOOP powder Other Relevant Orders Referral to Gastroenterology Grade III hemorrhoids Relevant Medications hydrocortisone (Anusol-HC) 2.5 % rectal cream docusate sodium (Colace) 100 MG capsule senna-docusate sodium (Senokot-S) 8.6-50 MG tablet polyethylene glycol, PEG, 3350 (MiraLax) 17 GM/SCOOP powder Howard Carson is a 59-year-old male with hypertension, prostate cancer, and stasis dermatitis presenting for routine follow-up with concerns about elevated blood pressure readings and nasal congestion for 2 days. Hypertension Assessment: Patient's home blood pressure readings show consistently elevated diastolic pressures with readings including 152/92, 126/89, 131/93, 131/92, and 160/86. The systolic pressures are mostlyacceptable, but diastolic pressures remain consistently high despite current treatment with hydrochlorothiazide 25 mg. In-office blood pressure was 120/70. Current monotherapy appears inadequate for blood pressure control. Previous creatinine levels were elevated in the emergency department, thoughthey were normal in early February, requiring reassessment of kidney function before medication adjustments. Plan: - Discontinue hydrochlorothiazide - Start olmesartan combination therapy - Recheck kidney function with creatinine level - Check electrolytes - Follow-up appointment scheduled within one month to assess response to medication change - Patient to bring home blood pressure machine to next visit Upper respiratory congestion Assessment: Patient reports nasal congestion for 2 days duration. No additional respiratory symptoms or complications noted. Plan: - Symptomatic management discussed Prostate cancer Assessment: Patient has history of prostate cancer with low-level findings on biopsy. Currently managed medically rather than surgically by Dr. Wilkins. No active bleeding reported. Patient denies hematuria. Plan: - Continue current management under Dr. Wilkins's care Stasis dermatitis Assessment: Patient has stasis dermatitis of the feet. Has been prescribed topical cream treatment.Seen by vascular specialist who recommended compression stockings, but patient reports foot swelling and discomfort with use, possibly due to material sensitivity. Plan: - Continue topical cream application, especially to affected areas - Continue compression stockings - Consider cotton material options for compression stockings Hemorrhoids Assessment: Patient reports rectal pain with bowel movements, requiring straining, and occasional blood in stool. Has bowel movements twice daily. Physical findings consistent with hemorrhoids. Plan: - Prescribe topical hemorrhoid cream - Prescribe stool softener Preventive care deficiencies Assessment: 59-year-old male missing several age-appropriate preventive care measures including influenza vaccination, third dose of hepatitis B series, tetanus vaccination, and colon cancer screening. [facility] as patient was not contacted. Plan: - Administer influenza vaccine today - Schedule third dose of hepatitis B vaccine series - Schedule tetanus vaccination for next visit - Re-refer for colonoscopy for colon cancer screening Umbilical hernia surgical follow-up Assessment: Patient had umbilical hernia repair in September 2020. Unclear if surgical follow-up appointment was scheduled. Patient was placed on medical leave in January. Plan: - Provide surgeon contact information for follow-up appointment scheduling documented in this encounter Plan of Treatment Upcoming Encounters Date Type Department Care Team (Late st Contact Info) Description 06/11/2025 3:00 PM EST Office Visit [facility] PEDS [address] [place] [address] Marleen Jovel MD [address] [place] [address] Scheduled Orders Name Type Priority Associated Diagnoses Orde r Schedule Basic Metabolic Panel Lab Routine Elevated serum creatinine Expected: 05/10/2025 (Approximate), Expires: 05/10/2026 Hepatitis B Surface Antibody, Qualitative Lab Routine Encounter for immunization Expected: 05/10/2025 (Approximate), Expires: 05/10/2026 Scheduled Referrals Name Type Priority Associated Diagnoses Order Schedule Referral to Gastroenterology Outpatient Referral Urgent Colon cancer screening Expected: 05/10/2025 (Approximate), Expires: 05/10/2026 Referral to General Surgery Outpatient Referral Routine Umbilical hernia without obstruction and without gangrene Expected: 05/10/2025 (Approximate), Expires: 05/10/2026 documented as of this encounter Visit Diagnoses Diagnosis Elevated serum creatinine- Primary Other nonspecific findings on examination of blood Prostate cancer (CMS/HCC) (HCC) Malignant neoplasm of prostate Essential hypertension Unspecified essential hypertension Venous stasis dermatitis Encounter for immunization Colon cancer screening Special screening for malignant neoplasms, colon Umbilical hernia without obstruction and without gangrene Grade III hemorrhoids documented in this encounter Additional Health Concerns Assessment Noted Time PHQ-9 Depression Total Score: 8 03/25/20 25 10:21 AM EDT documented as of this encounter Care Teams Honest John Rocket Crew Member Relationship Specialty Start Date End Date Marleen Jovel MD [address] [place] [phone] PCP - General Family Medicine 10/28/23 documented as of this encounter
--- NOTE | ~2025-05-14 | MR_ITS ---
EXAMINATION: MR PROSTATE WITHOUT THEN WITH IV CONTRAST, MR EXAM UNLISTED HISTORY: C61 - Malignant neoplasm of prostate TECHNIQUE: 1.5T body coil survey of the pelvis was performed. Phase array coil imaging of the prostate was performed in multiplanar high resolution axial, coronal, sagittal fast spin echo T2 and axial T1 weighted imaging sequences. Axial diffusion imaging at intermediate and high field performed with ADC mapping. Next, 10 mL Gadavist was given by intravenous infusion, and dynamic axial imaging performed. 3-D reconstructions and post-processing were performed on an independent workstation by the radiologist for biopsy planning using image fusion. COMPARISON: There are no prior studies available for comparison. CLINICAL DATA: Most recent PSA: 5.41 ng/mL on 02/12/2025. PSA Density: 0.20 ng/mL squared Prostate Biopsy: Positive biopsy on 03/09/2025 with a Leslee score of 3+3 = 6. FINDINGS: Prostate size: 3.4 x 4.4 x 3.4 cm. Calculated prostate volume is 26.4 mL. Hemorrhage: None. Transitional Zone: There is mild heterogeneous nodular hypertrophy of the transitional zone. Peripheral Zone: There is an area of interest in the lateral aspect of the right peripheral zone in the mid gland and characteristics as follows: Area of interest #1: Location: Lateral right peripheral zone in the mid gland measuring approximately 11 mm (series 7, images 19-21). DWI PI-RADS v2.1 score: 4 T2 PI-RADS v2.1 score: 4 DCE PI-RADS v2.1 score: + Overall PI-RADS v2.1 score: 4 Capsular contact: yes Extracapsular extension: None Seminal vesicle invasion: None Neurovascular bundle involvement: None Seminal Vesicles/Ejaculatory Ducts: Symmetric and normal in signal and caliber. Pelvic Lymph Nodes: No obturator or internal iliac lymph nodes meeting size criteria for adenopathy. Marrow Signal: Normal marrow signal and enhancement without focal lesion identified. MR/MR Prostate wo/w con IMPRESSION: Focus of abnormal signal intensity in the lateral aspect of the right peripheral zone in the mid gland, suspicious for clinically significant prostate carcinoma. PI-RADS 4: High (clinically significant cancer is likely to be present) PI-RADS Assessment Categories PI-RADS 1: Very low (clinically significant cancer is highly unlikely to be present) PI-RADS 2: Low (clinically significant cancer is unlikely to be present) PI-RADS 3: Intermediate (the presence of clinically significant cancer is equivocal) PI-RADS 4: High (clinically significant cancer is likely to be present) PI-RADS 5: Very high (clinically significant cancer is highly likely to be present) [employer]. MR Prostate Imaging Reporting and Data System version 2.1. [email or web address]/[email or web address]-[email or web address]/ Electronically signed by: Hussain Aguiar MD 05/14/2025 10:39 AM WOO
--- OUTSIDE RECORDS SUMMARY | 2025-05-14 08:51 | XMS_ITS | Encounter Summary ---
Author Organization [employer] Address [address] [facility] [address] [place] [address] Care Team Providers Care Playground Attendant Name Role Phone Marleen Jovel MD Primary Care Provider [phone] Reason for Visit * Reason Comments Med Refill Encounter Details Date Type Department Care Team ([facility] Contact Info) Description 07/31/2024 Refill [facility] PEDS [address] [place], [place] [phone] Marleen Jovel MD [address] [place] [address] Social History Tobacco Use Types Packs/Day Years [...] Upcoming Encounters Date Type Department Care Team ([facility] st Contact Info) Description 06/11/2025 3:00 PM EST Office Visit [facility] MED & PEDS [address] [place] [address] Marleen Jovel MD [address] [place] [address] documented as of this encounter Visit Diagnoses Not on filedocumented in this encounter Additional Health Concerns Assessment Noted Time PHQ-9 Depression Total Score: 0 10/28/19 9:20 AM EDT documented as of this encounter Care Teams Playground Attendant Relationship Specialty Start Date End Date Marleen Jovel MD [address] [place] [address] PCP - General Family Medicine 10/28/23 documented as of this encounter
--- OUTSIDE RECORDS SUMMARY | 2025-05-14 08:51 | XMS_ITS | Encounter Summary ---
Author Organization [employer] Address [address] [facility] [address] [place] [address] Care Team Providers Care Amusement Machine Mechanic Name Role Phone Marleen Jovel MD Primary Care Provider [phone] Encounter Details Date Type Department Care Team (Late st Contact Info) Description 10/05/[address] [facility] [address] [place] [address] Provider, MD Wang Social History Tobacco Use [...] Description 06/11/2025 3:00 PM EST Office Visit [facility] [address] [place] [address] Marleen Jovel MD [address] [place] [address] documented as of this encounter Procedures Procedure [...] documented as of this encounter Care Teams Amusement Machine Mechanic Relationship Specialty Start Date End Date Marleen Jovel MD [address] [place] [address] PCP - General Family Medicine 10/28/23 documented as of this encounter
--- OUTSIDE RECORDS SUMMARY | 2025-05-14 08:51 | XMS_ITS | Encounter Summary ---
Author Organization [employer] Address [address] [facility] [address] [place] [address] Care Team Providers Care Education Reviewer Name Role Phone Marleen Jovel MD Primary Care Provider [phone] Encounter Details Date Type Department Care Team (Latest Contact Info) Description 05/10/2025 Travel Social History Tobacco Use Types Packs/Day [...] Description 06/11/2025 3:00 PM EST Office Visit [facility] & PEDS [address] [place] [address] Marleen Jovel MD [address] [place] [address] documented as of this encounter Visit Diagnoses Not on filedocumented in this encounter Additional Health Concerns Assessment Noted Time PHQ-9 Depression Total Score: 8 03/25/20 25 10:21 AM EDT documented as of this encounter Care Teams Education Reviewer Relationship Specialty Start Date End Date Marleen Jovel MD [address] [place] [phone] PCP - General Family Medicine 10/28/23 documented as of this encounter
--- OUTSIDE RECORDS SUMMARY | 2025-05-14 08:52 | XMS_ITS | Clinical Summary ---
Author Organization [facility] Address [address] [place] [address] Phone Care Team Providers Care Maintenance Machine Repairer Name Role Phone Marleen Jovel MD Primary Care Provider [phone] Allergies No known active allergies Medications albuterol [...] EDT - 03/21/2025 9:42 PM EDT Emergency [facility] Emergency [address] [place] [address] Verónica Gross MD Chest pain, unspecified type (Primary Dx); Leg swelling; Bronchitis Discharge Disposition: Home or Self Care 02/25/2025 8:02 PM EDT - 02/27/2025 12:29 PM EDT Hospital Encounter [facility] Medical Surgical Unit [address] [place] [id number] Alan Hu MD Ishtiaq, Rizwan, MD Alam, [...] LAB CHEMISTRY METHOD 03/21/2025 7:08 PM EDT [facility] Blood Venous blood specimen / Unknown Venipuncture / Unknown 03/21/2025 6:31 PM EDT 03/21/2025 6:41 PM EDT Narrative [facility] - 03/21/2025 7:08 PM EDT High levels of biotin in samples may falsely decrease hsTroponin values. Use caution when interpreting hsTroponin results in patients taking biotin who exhibit renal impairment (eGFR <60) or in patients taking more than 20 mg/day of biotin. Verónica Gross MD LAB BLOOD ORDERABLES Final Resul t [facility] ([facility]) [facility] [address] [place] [address], * CT Angio Chest wo and/or w [...] GEMUSE QTc 447 ms GEMUSE P Wave Shelby 32 degrees GEMUSE R Shelby -23 degrees GEMUSE T Shelby 0 degrees GEMUSE ECG Interpretation Normal sinus [...] Signed Date: 03/21/2025 21:08 ET Workstation ID: [id number] Transcribed By: Self Edit Transcribed Date: 03/21/2025 [...] Signed Date: 03/21/2025 21:08 ET Workstation ID: [id number] Transcribed By: Self Edit Transcribed Date: 03/21/2025 21:07 ET us Verónica Gross MD CV VASCULAR PROCEDURES Final Res ult * (ABNORMAL) CBC (03/21/2025 4:47 PM EDT) WBC 7.6 4.8 - 10.8 K/[facility] LAB HEMETOLOGY METHOD 03/21/2025 5:10 PM EDT [facility] RBC 4.40(L) 4.50 - 5.50 M/mcL LAB HEMETOLOGY METHOD 03/21/2025 5:10 PM EDT [facility] Hemoglobin 13.8 13.5 - 17.5 g/dL LAB HEMETOLOGY METHOD 03/21/2025 5:10 PM EDT [facility] Hematocrit 42.8 42.0 - 54.0 % LAB HEMETOLOGY METHOD 03/21/2025 5:10 PM EDT [facility] MCV 96.4 79.0 - 98.0 FL LAB HEMETOLOGY METHOD 03/21/2025 5:10 PM EDT [facility] MCH 31.1 27.0 - 32.0 pcg LAB HEMETOLOGY METHOD 03/21/2025 5:10 PM EDT [facility] MCHC 32.2 32.0 - 37.0 g/dL LAB HEMETOLOGY METHOD 03/21/2025 5:10 PM EDT [facility] RDW 12.8 11.0 - 15.0 % LAB HEMETOLOGY METHOD 03/21/2025 5:10 PM EDT [facility] Platelets 211 130 - 400 K/mcL LAB HEMETOLOGY METHOD 03/21/2025 5:10 PM EDT [facility] MPV 10.3 7.0 - 11.0 FL LAB HEMETOLOGY METHOD 03/21/2025 5:10 PM EDT [facility] NRBC 0.0 <1.0 % LAB HEMETOLOGY METHOD 03/21/2025 5:10 PM EDT [facility] NRBC Absolute 0.00 <0.10 K/mcL LAB HEMETOLOGY METHOD 03/21/2025 5:10 PM [facility] Blood Venous blood specimen / Unknown Venipuncture / Unknown 03/21/2025 4:47 PM EDT 03/21/2025 5:05 PM EDT us Verónica Gross MD LAB BLOOD ORDERABLES Final Resul t [facility] [address] [place] [address], * (ABNORMAL) Basic Metabolic Panel (BMP) (03/21/2025 4:47 PM EDT) Only the most recent of4 resultswithin the time period is included. Sodium 140 133 - 145 mmol/L LAB CHEMISTRY METHOD 03/21/2025 5:29 PM [facility] Potassium 3.7 3.5 - 5.5 mmol/L LAB CHEMISTRY METHOD 03/21/2025 5:29 PM [facility] Chloride 104 96 - 110 mmol/L LAB CHEMISTRY METHOD 03/21/2025 5:29 PM [facility] CO2 29 21 - 32 mmol/L LAB CHEMISTRY METHOD 03/21/2025 5:29 PM [facility] Anion Gap 7 3 - 11 LAB CHEMISTRY METHOD 03/21/2025 5:29 PM [facility] Glucose 100 70 - 100 mg/dL LAB CHEMISTRY METHOD 03/21/2025 5:29 PM [facility] BUN 26(H) 5 - 25 mg/dL LAB CHEMISTRY METHOD 03/21/2025 5:29 PM [facility] Creatinine 1.21 0.70 - 1.30 mg/dL LAB CHEMISTRY METHOD 03/21/2025 5:29 PM [facility] eGFR 69 >=60 mL/min/1. 73m2 LAB CHEMISTRY METHOD 03/21/2025 5:29 PM [facility] Comment:Calculation based on the Chronic Kidney Disease Epidemiology Collaboration (CKD-EPI) equation refit without adjustment for race. BUN/Creatinine Ratio 21.5 LAB CHEMISTRY METHOD 03/21/2025 5:29 PM [facility] Calcium 8.8 8.5 - 10.5 mg/dL LAB CHEMISTRY METHOD 03/21/2025 5:29 PM EDT [facility] Blood Venous blood specimen / Unknown Venipuncture / Unknown 03/21/2025 4:47 PM EDT 03/21/2025 5:05 PM EDT Verónica Gross MD LAB BLOOD ORDERABLES Final Resul t Performing Organization Address [facility] de Phone Number [facility] [address] [place] [address], [place] [phone] * (ABNORMAL) Vancomycin, trough (02/27/2025 11:03 AM EDT) Vancomycin Trough 2.6(L) 10.0 - 20.0 mcg/mL LAB CHEMISTRY METHOD 02/27/2025 11:45 AM EDT [facility] Blood Venous blood specimen / Unknown Venipuncture / Unknown 02/27/2025 11:03 AM EDT 02/27/2025 11:08 AM EDT Demarcus Cage MD LAB BLOOD ORDERABLES Final Res ult Performing Organization Address [facility] de Phone Number [facility] [address] [place] [address], [place] [phone] * XR Abdomen 1 View (02/27/2025 10:20 AM EDT) Anatomical Region Laterality Modality Body Radiographic Vernell ging 02/27/2025 10:5 2 AM EDT Impressions 02/27/2025 10:53 AM EDT No acute findings. -------- FINAL REPORT -------- Dictated By: Mayur Zavala Dictated Date: 02/27/2025 10:52 ET Assigned Physician: Mayur Zavala Reviewed and Electronically Signed By: Mayur Zavala Signed Date: 02/27/2025 10:53 ET Workstation ID: [id number] Transcribed By: Self Edit Transcribed Date: 02/27/2025 [...] Signed Date: 02/27/2025 10:53 ET Workstation ID: [id number] Transcribed By: Self Edit Transcribed Date: 02/27/2025 10:52 ET us Annie OQUENDO IMG XR PROCEDURES Final Res ult * CBC auto differential (02/27/2025 5:36 AM EDT) Only the most recent of3 resultswithin the time period is included. WBC 8.6 4.8 - 10.8 K/mcL LAB HEMETOLOGY METHOD 02/27/2025 6:00 AM EDT [facility] RBC 4.50 4.50 - 5.50 M/mcL LAB HEMETOLOGY METHOD 02/27/2025 6:00 AM EDT [facility] Hemoglobin 14.3 13.5 - 17.5 g/dL LAB HEMETOLOGY METHOD 02/27/2025 6:00 AM EDT [facility] Hematocrit 44.0 42.0 - 54.0 % LAB HEMETOLOGY METHOD 02/27/2025 6:00 AM [facility] MCV 96.9 79.0 - 98.0 FL LAB HEMETOLOGY METHOD 02/27/2025 6:00 AM [facility] MCH 31.5 27.0 - 32.0 pcg LAB HEMETOLOGY METHOD 02/27/2025 6:00 AM [facility] MCHC 32.5 32.0 - 37.0 g/dL LAB HEMETOLOGY METHOD 02/27/2025 6:00 AM [facility] RDW 13.0 11.0 - 15.0 % LAB HEMETOLOGY METHOD 02/27/2025 6:00 AM [facility] Platelets 156 130 - 400 K/mcL LAB HEMETOLOGY METHOD 02/27/2025 6:00 AM [facility] MPV 10.7 7.0 - 11.0 FL LAB HEMETOLOGY METHOD 02/27/2025 6:00 AM [facility] NRBC 0.0 <1.0 % LAB HEMETOLOGY METHOD 02/27/2025 6:00 AM [facility] NRBC Absolute 0.00 <0.10 K/mcL LAB HEMETOLOGY METHOD 02/27/2025 6:00 AM [facility] Neutrophils Relative 57.2 % LAB HEMETOLOGY METHOD 02/27/2025 6:00 AM [facility] Lymphocytes Relative 29.7 % LAB HEMETOLOGY METHOD 02/27/2025 6:00 AM [facility] Monocytes Relative 9.7 % LAB HEMETOLOGY METHOD 02/27/2025 6:00 AM [facility] Eosinophils Relative 2.8 % LAB HEMETOLOGY METHOD 02/27/2025 6:00 AM [facility] Basophils Relative 0.4 % LAB HEMETOLOGY METHOD 02/27/2025 6:00 AM EDT [facility] Immature Granulocytes Relative 0.2 % LAB HEMETOLOGY METHOD 02/27/2025 6:00 AM EDT [facility] Neutrophils Absolute 4.89 1.50 - 7.00 K/mcL LAB HEMETOLOGY METHOD 02/27/2025 6:00 AM EDT [facility] Lymphocytes Absolute 2.54 1.00 - 5.00 K/mcL LAB HEMETOLOGY METHOD 02/27/2025 6:00 AM EDT [facility] Monocytes Absolute 0.83 0.20 - 1.00 K/mcL LAB HEMETOLOGY METHOD 02/27/2025 6:00 AM EDT [facility] Eosinophils Absolute 0.24 0.00 - 0.50 K/mcL LAB HEMETOLOGY METHOD 02/27/2025 6:00 AM EDT [facility] Basophils Absolute 0.03 0.00 - 0.20 K/mcL LAB HEMETOLOGY METHOD 02/27/2025 6:00 AM EDT [facility] Immature Granulocytes Absolute 0.02 0.00 - 0.03 K/mcL LAB HEMETOLOGY [facility] Venous blood specimen / Unknown Venipuncture / Unknown 02/27/2025 5:36 AM EDT 02/27/2025 5:54 AM EDT us Annie OQUENDO LAB BLOOD ORDERABLES Final Result [facility] [address] [place] [address], * (ABNORMAL) C-reactive protein (02/27/2025 5:36 AM EDT) Only the most recent of2 resultswithin the time period is included. Pathologist [facility] C-Reactive Protein 3.54(H) <=0.50 mg/dL LAB CHEMISTRY METHOD 02/27/2025 6:16 AM EDT [facility] Blood Venous blood specimen / Unknown Venipuncture / Unknown 02/27/2025 5:36 AM EDT 02/27/2025 5:54 AM EDT us Annie OQUENDO LAB BLOOD ORDERABLES Final Result [facility] ([facility]) [facility] [address] [place] [address], [place] [phone] * (ABNORMAL) TRANSTHORACIC ECHOCARDIOGRAM (TTE) COMPLETE W/ CONTRAST (02/26/2025 2:48 PM EDT) BSA 2.17 m2 CV PACS Left Atrium Minor Shelby 6.7 cm CV PACS Left Atrium Major Shelby 6.8 cm CV PACS LA Area Sys [...] Area 4.2 cm2 CV PACS MV Deceleration Thurston 3.7 m/s2 CV PACS E Wave Deceleration [...] sult * Magnesium (02/26/2025 5:29 AM EDT) [facility] Magnesium 2.4 1.9 - 2.6 mg/dL LAB CHEMISTRY METHOD 02/26/2025 7:15 AM EDT [facility] Blood Venous blood specimen / Unknown Venipuncture / Unknown 02/26/2025 5:29 AM EDT 02/26/2025 6:12 AM EDT Demarcus Cage MD LAB BLOOD ORDERABLES Final Res ult [facility] [address] [place] [address], [place] [phone] * Hemoglobin A1c (02/26/2025 5:29 AM EDT) [facility] Hemoglobin A1C 6.1 <6.5 % LAB CHEMISTRY METHOD 02/26/2025 11:16 AM EDT [facility] Mean Bld Glu Estim. 128 mg/dL LAB CHEMISTRY METHOD 02/26/2025 11:16 AM EDT [facility] Blood Venous blood specimen / Unknown Venipuncture / Unknown 02/26/2025 5:29 AM EDT 02/26/2025 6:13 AM EDT Verónica Pathak NP LAB BLOOD ORDERABLES Fin al Result Performing Organization Address City/[facility]/ZIP Co de Phone Number [facility] [address] [place] [address], [place] [phone] * MRSA molecular study (02/25/2025 9:18 PM EDT) MRSA Screen PCR Not Detected Not Detected LAB MICROBIOLOGY METHOD 02/25/2025 10:42 PM EDT [facility] Swab Both anterior nares / Unknown Non-blood Collection / Unknown 02/25/2025 9:18 PM EDT 02/25/2025 9:26 PM EDT Verónica Pathak NP LAB MICROBIOLOGY - GENER AL ORDERABLES Final Result [facility] [address] [place] [address], [place] [phone] * Lactate, with Reflex (02/25/2025 6:57 PM EDT) Pathologist [facility] LACTIC ACID 0.9 0.4 - 2.0 mmol/L LAB CHEMISTRY METHOD 02/25/2025 7:37 PM EDT [facility] Blood Venous blood specimen / Unknown Venipuncture / Unknown 02/25/2025 6:57 PM EDT 02/25/2025 7:06 PM EDT Alan Hu MD LAB BLOOD ORDERABLES Final Resul t [facility] [address] [place] [address], [place] [phone] * Blood Culture, Peripheral #2 (02/25/2025 6:57 PM EDT) Only the most recent of2 resultswithin the time period is included. Culture, Blood No growth at 5 days 03/02/2025 8:01 PM EDT [facility] Blood Venous blood specimen / Unknown Venipuncture / Unknown 02/25/2025 6:57 PM EDT 02/25/2025 7:07 PM EDT us Alan Hu MD LAB MICROBIOLOGY - GENERAL ORDER BABITA Final Result [facility] ([facility] [address] [place] [address], [place] [phone] from Last 3 Months Insurance [facility] PUBLIC [facility]ANS Advance Directives * Full [...] currently active code status orders. Care Teams Maintenance Machine Repairer Relationship Specialty Start Date End Date Marleen Jovel MD [address] [place] [id number] PCP - General Family Medicine 10/02/24
--- OUTSIDE RECORDS SUMMARY | 2025-05-14 08:52 | XMS_ITS | Encounter Summary ---
Author Organization [employer] Address [address] [facility] [address] [place] [address] Care Team Providers Care Digital Marketing Lead Name Role Phone Marleen Jovel MD Primary Care Provider [phone] Encounter Details Date Type Department Care Team ([facility] st Contact Info) Description 04/28/2025 Results Follow-Up [facility] P[facility]S [address], [place] [phone] Nhung Bearden MD [address] [place] [address] Urinalysis w/reflex microscopic Social History Tobacco Use Types Packs/Day Years [...] Description 06/11/2025 3:00 PM EST Office Visit [facility] P[facility] [address] [place] [address] Marleen Jovel MD [address] [place] [address] documented as of this encounter Visit Diagnoses Not on filedocumented in this encounter Additional Health Concerns Assessment Noted Time PHQ-9 Depression Total Score: 8 03/25/20 25 10:21 AM EDT documented as of this encounter Care Teams Digital Marketing Lead Relationship Specialty Start Date End Date Marleen Jovel MD [address] [place] [phone] PCP - General Family Medicine 10/28/23 documented as of this encounter
--- OUTSIDE RECORDS SUMMARY | 2025-05-14 08:52 | XMS_ITS | Encounter Summary ---
Author Organization [employer] Address [address] [facility] [address] [place] [address] Care Team Providers Care Director Of Trauma Name Role Phone Marleen Jovel MD Primary Care Provider [phone] Encounter Details Date Type Department Care Team (Late st Contact Info) Description 03/22/2025 Orders Only [facility] MED [facility] PEDS [address] [place] [address] Provider, MD Wang Social History Tobacco Use [...] of Assessment Author 8 03/25/2025 10:21 AM ESTHERT Leatha Conklin MA * How difficult have these problems made it for you to do your work, take care of things at home, or get along with other people? Answer Date of Assessment Author Somewhat difficult 03/25/2025 10:21 AM ESTHERT Mya Conklin MA documented as of this encounter Plan of Treatment Upcoming Encounters Date Type Department Care Team (Late st Contact Info) Description 06/11/2025 3:00 PM EST Office Visit [facility] MED & PEDS [address] [place] [address] Marleen Jovel MD [address] [place] [address] documented as of this encounter Procedures Procedure [...] documented as of this encounter Care Teams Director Of Trauma Relationship Specialty Start Date End Date Marleen Jovel MD [address] [place] [address] PCP - General Family Medicine 10/28/23 documented as of this encounter
--- OUTSIDE RECORDS SUMMARY | 2025-05-14 08:52 | XMS_ITS | Clinical Summary ---
Author Organization [employer] Address [address] [facility] 7[address] [place] [address] Care Team Providers Care Supervisor Screen Printing Name Role Phone Marleen Jovel MD Primary Care Provider [phone] Allergies No known active allergies Medications * This document contains information received from the source organization and may not represent a complete record from that organization. tiZANidine (Zanaflex) 2 MG capsule Take 1 capsule (2 mg) by mouth every 8 (eight) hours if needed for muscle spasms. 90 capsule 1 024 Active Blood Pressure kit 1 Units Once [...] hours if needed (asthma). 1 each Active triamcinolone (Kenalog) 0.1 % ointmentIndicatio ns:Venous stasis dermatitis Apply topically 2 times daily. 30 g Active furosemide (Lasix) 20 MG tabletIndications :Lower extremity edema Take 1 tablet (20 mg) by mouth Once per day. 3 tablet 025 2025 Active triamcinolone (Kenalog) 0.1 % ointmentIndicatio ns:Venous stasis dermatitis Apply topically 2 times daily. 30 g Active dutasteride (Avodart) 0.5 MG capsule Take 1 capsule by mouth Once per day. Active hydrocortisone (Anusol-HC) 2.5 % rectal creamIndications: Grade III hemorrhoids Insert into the rectum 2 times daily. 90 g 1 Active docusate sodium (Colace) 100 MG capsuleIndication s:Grade III hemorrhoids Take 1 capsule (100 mg) by mouth 2 times daily for 10 days. 20 capsule 025 2024 Active senna-docusate sodium (Senokot-S) 8.6-50 MG tabletIndications :Grade III hemorrhoids Take 1 tablet by mouth Once per day. 30 tablet 11 025 2025 Active polyethylene glycol, PEG, 3350 (MiraLax) 17 GM/SCOOP powderIndications :Grade III hemorrhoids Take 17 g by mouth Once per day. 527 g 2 Active olmesartan-hydroC HLOROthiazide (Benicar HCT) 20-12.5 MG tablet Take 1 tablet by mouth Once per day. 90 tablet 1 Active hydroCHLOROthiazi de (HYDRODiuril) 25 MG tabletIndications :Bilateral leg edema,Essential hypertension Take 1 tablet (25 mg) by mouth Once per day. PLEASE DISCONTINUE AMLODIPINE 30 tablet 2 025 2024 Discontinued doxycycline (Vibra-Tabs) 100 MG tabletIndications :Cellulitis of lower extremity, unspecified laterality Take 1 tablet (100 mg) by mouth 2 times daily for 14 days. Take with a full glass of water and do not lie down for at least 30 minutes after. 28 tablet 025 2024 Discontinued amoxicillin (Amoxil) 875 MG tabletIndications :Cellulitis of lower extremity, unspecified laterality Take 1 tablet (875 mg) by mouth 2 times daily for 14 days. 28 tablet 025 2024 Discontinued Active Problems Problem Noted Date Diagnosed Date Snoring 05/10/2025 Elevated PSA 05/10/2025 Dysphagia 05/10/2025 Asthma 05/10/2025 Lower extremity edema 04/20/2025 SOB (shortness of [...] possible edema ordered, check d dimer Cellulitis 10/27/2024 Assessment & Plan (10/29/2024 11:24 AM [...] referral in the system. Will send to [facility]. Please attach media from ECG done in [...] (Zanaflex) 2 MG Capsule Epigastric pain 12/18/2022 Essential hypertension 09/10/2022 Assessment & Plan [...] visit and letter was sent to patient. Resolved Problems Problem Noted Date Diagnosed Date Resolved Date Venous stasis 05/10/2025 05/10/2025 Bacterial sinusitis 12/18/2022 05/10/20 25 Encounters * This document contains information received from the source organization and may not represent a complete record from that organization. Date Type Department Care Team Description 05/10/2025 10:00 AM EST Office Visit [facility] [address] [place] [address] Marleen Jovel MD Elevated serum creatinine (Primary Dx); Prostate cancer (CMS/HCC) (HCC); Essential hypertension; Venous stasis dermatitis; Encounter for immunization; Colon cancer screening; Umbilical hernia without obstruction and without gangrene; Grade III hemorrhoids 05/10/2025 Travel 05/03/2025 Patient Outreach [facility] [address] [place] [address] Marleen Jovel MD Pre-visit Planning ([facility] screening was completed on 03/25/2025) 04/28/2025 Results Follow-Up [facility] [address] [place] [address] Nhung Bearden MD Urinalysis w/reflex microscopic 04/27/2025 9:30 AM EST Office Visit [facility] [address] [place] [address] Nhung Conklin MD Venous stasis dermatitis (Primary Dx); Gross hematuria 04/27/2025 Orders Only [facility] [address] [place] [address] Nhung Bearden MD 04/27/2025 Telephone [facility] [address] [place] [address] Violeta Ta RN 04/27/2025 Travel 04/20/2025 1:00 PM EDT Office Visit [facility] [address] [address] Trena Billings MD Cellulitis of lower extremity, unspecified laterality; Lower extremity edema 04/20/2025 Travel 04/01/2025 Telephone [facility] [address] [place] [address] Marleen Jovel MD 03/31/2025 Orders Only [facility] External Provider, [facility] 03/25/2025 10:00 AM EDT Office Visit [facility] [address] [place] [address] Nhung Bearden MD Venous stasis dermatitis (Primary Dx); Essential hypertension; SOB (shortness of breath); Diastolic dysfunction; Other depression 03/25/2025 Travel 03/24/2025 Telephone [facility] [address] [place] [address] Marleen Jovel MD Chart Prep 03/22/2025 Orders Only [facility] [address] [place] [address] Wang Rubin MD 03/11/2025 11:00 AM EDT [facility] [address] [address] Tru Lomeli MD Bilateral leg edema (Primary Dx); Essential hypertension [I10] 03/11/2025 [facility] [address] [address] Tru Lomeli MD 03/11/2025 Travel 03/09/2025 Orders Only GENERIC EXTERNAL DATA DEPARTMENT Provider, Generic External Data 03/03/2025 3:40 PM EDT Office Visit [facility] [address] [place] [address] Nhung Bearden MD Bilateral leg edema (Primary Dx); Venous stasis dermatitis; Pedal edema; Mild diastolic dysfunction 03/03/2025 Travel 03/02/2025 Telephone [facility] [address] [place] [address] Marleen Jovel MD Appointment Request 03/01/2025 Telephone [facility] [address] [place] [address] Nhung Bearden MD No Show 02/16/2025 10:00 AM EDT Office Visit [facility] [address] [place] [address] Noel Conn MD Cellulitis of right leg (Primary Dx); Cellulitis of left leg; Lower extremity edema; Dyspnea on exertion; Rhinosinusitis 02/16/2025 Orders Only GENERIC EXTERNAL DATA DEPARTMENT Provider, Generic External Data 02/16/[address] [address] Kimmy Ndiaye, PANEL EDGE PAINTER Expect 02/16/2025 Telephone [facility] [address] [place] [phone] Kimmy Ndiaye, RN Nurse Triage 02/12/2025 8:40 AM EDT Office Visit [facility] [address] [address] Tru Lomeli MD Pedal edema (Primary Dx) 02/12/2025 Results Follow-Up [address] [address] Tru Lomeli MD Comprehensive Metabolic Panel, B Type Natriuretic Peptide (BNP), CBC auto differential 02/12/2025 Orders Only GENERIC EXTERNAL DATA DEPARTMENT Provider, Generic External Data 02/12/2025 Travel from Last 3 Months Immunizations Immunization Administration Dates Next Due Hep B, adult 12/18/2023,11/20/2023 Influenza Injectable Quadriv alant Preservative Free IIV4 MDCK 04/01/2018 Influenza, IIV3, injectable 05/01/2024,,04/05/2015 Influenza, seasonal, injecta ble, preservative free 05/10/2025 Zoster, Recombinant 11/26/2024,09/17/2024 Family History Medical History [...] Mass Index 34.39 05/10/2025 9:37 AM EST Plan of Treatment Upcoming Encounters Date Type Department Care Team ([facility] st Contact Info) Description 06/11/2025 3:00 PM EST Office Visit [facility] [address] [place] [address] Marleen Jovel MD [address] [place] [address] Health Maintenance Due Date Last Done Comments CT Colonography 1965 Colonoscopy 1965 Colorectal Cancer Screening 1965 FIT DNA/Cologuard 1965 FIT 1965 FOBT 1965 Sigmoidoscopy 1965 DTaP/Tdap/Td Vaccines (1 - Tdap) 1983 Pneumococcal Vaccine: 50+ Years (1 of 2 - PCV) 1983 RSV Patients and Patients Aged 60 years or older (1 - Risk 50-74 years 1-dose series) 2014 Hepatitis B Vaccines (3 of 3 - 19+ 3-dose series) 05/22/2024 12/18/2023, 11/20/2023 COVID-19 Vaccine ( - 2024- season) 2025 01/07/2021, 12/17/2020 Alcohol/Substance Use Screening 03/25/2026 03/25/2025 Depression Screening 03/25/2026 03/25/2025, 03/25/20 Disability Screening 03/25/2026 03/25/2025 SDOH Screening 03/25/2026 03/25/2025 Tobacco Screening 05/10/2026 05/10/2025 Lipid Panel 10/27/2028 10/28/2023 HIV Screening Completed 10/28/2023 Hepatitis C Screening Completed 10/28/2023 Zoster Vaccines Completed 11/26/2024, 09/17/2024 Influenza Vaccine Completed 05/10/2025, , 06/01/2022, Additional history exists HIB Vaccines [...] Procedure Name Priority Date/Time Associated Diagnosis Comments URINALYSIS WITH REFLEX MICROSCOPIC Routine 04/27/2025 10:27 AM EST FL BARIUM SWALLOW MODIFIED Routine 03/31/2025 2:22 [...] Recently Relevant to Health Maintenance Results * Urinalysis w/reflex microscopic (04/27/2025 10:27 AM EST) Color Urine Yellow [facility] Appearance Urine Clear [facility] PH 6.5 5.0 - 9.0 [facility] Glucose Urine UA Negative Negative mg/dL [facility] Urine Blood Negative Negative [facility] Specific [place] - Urine 1.015 1.005 - 1.025 [facility] Urine Protein Negative Neg-Trace mg/dL [facility] Urine Ketones Negative Negative mg/dL [facility] Nitrite Urine Negative Negative [facility] Leukocyte Esterase Urine Negative Negative [facility] 04/27/2025 10:2 7 AM EST 04/27/2025 2:08 PM EST Narrative [facility] - 04/27/2025 2:21 PM EST [id number], Clean Catch us Nhung Bearden MD LAB URINE ORDERABLES Final Result [facility] [address] [place] [phone] * FL BARIUM SWALLOW MODIFIED (03/31/2025 2:22 PM EDT) Anatomical Region Laterality Modality Head, Neck Radiographic Vernell ging 03/31/2025 2:22 PM EDT Narrative 03/31/2025 3:18 PM EDT [address] [address] Fluoroscopy Report Signed Patient: Howard Junior MR#: [id number] : 1965 Acct:[id number] Age/Sex: 59 / M ADM Date: 03/31/25 Loc: HO.XRAY Attending Dr: Zonia Gongora MD Ordering Physician: Zonia Gongora MD Date of Service: 03/31/25 Procedure(s): FL Modified Barium Swallow Accession Number(s): [id number] cc: Marleen Jovel MD; Zonia Gongora MD [...] Alexandro Blandon MD 03/31/2025 03:15 PM EDT Dictated By: Alexandro Blandon MD Signed By: <Electronically signed by Alexandro Blandon MD in OV> 03/31/25 1515 DD/ 21 TD/TT: 03/31/251444 Family Dinner Service Specialist: Procedure Note Donotletyinterpreter, Image - 03/31/[address] [address] Fluoroscopy Report Signed Patient: Howard JuniorMR#: [id number] : 1965Acct:[id number] Age/Sex: 59 / MADM Date: 03/31/25 Loc: HO.XRAY Attending Dr: Zonia Gongora MD Ordering Physician: Zonia Gongora MD Date of Service: 03/31/25 Procedure(s): FL Modified Barium Swallow Accession Number(s): [id number] cc: Marleen Jovel MD; Zonia Gongora MD [...] Alexandro Blandon MD 03/31/2025 03:15 PM EDT Dictated By: Alexandro Blandon MD Signed By: <Electronically signed by Alexandro Blandon MD in OV> 03/31/25 1515 DD/ 1422 TD/TT: 03/31/251444 Family Dinner Service Specialist: us [facility] External Provider IMG FLU OROSCOPY PROCEDURES Final Result * ECG 12 lead (03/21/2025 9:02 AM EDT) Historical Provider MD ECG ORDERABLES Final Res ult * CT CHEST ANGIO W AND WO IV CONTRAST (03/21/2025 8:53 AM EDT) Anatomical Region Laterality Modality Computed Tomogra phy Historical Provider MD IMG CT PROCEDURES Final R esult * Prostate biopsy 1-20 (03/09/2025 8:25 AM EDT) 03/09/2025 8:25 AM EDT 03/09/2025 10:30 AM EDT Narrative [facility] - 04/21/2025 9:11 AM EDT ----- ------- Name: Howard Junior Age/Sex: 59/M : 1965 Unit#: [id number] Attend Dr: Aravind Wilkins MD Re03/09/25 Status: DEP REF Location: [facility] Disch: ----- ------- SPEC : [id number] RECD: 03/09/25 STATUS: ADDY SUTTON NUM: [id number] KIET: 03/09/[address] [facility] [address]: Aravind Wilkins MD ENTERED: 03/09/25-1108 SP TYPE: Surgical OTHR DR: Marleen Jovel MD ORDERED: Prostate biopsy COMMENTS: Block I sent to [facility] on 03/31/25. Addendum Addendum 1 Entered: 04/21/25-3285 Please see Prolaris Biopsy Test report from [employer] with the following results (part G): - Prolaris molecular score: 4.9 (single-modal treatment) Testing performed at [facility], [place], [place]. See report in its entirety in [...] right base lateral, core biopsy: Prostatic adenocarcinoma, Fulton score 3+3=6 (Grade group 1) involving 16% of the tissue core. H. Prostate, right base medial, core biopsy: Benign prostatic tissue. I. Prostate, right mid lateral, core biopsy: Prostatic adenocarcinoma, Leslee score 3+3=6 (Grade group 1) involving 55% of the tissue core. J. Prostate, right mid medial, core biopsy: Prostatic adenocarcinoma, Fulton score 3+3=6 (Grade group 1) involving 10% of the tissue core. K. Prostate, right apex lateral, core biopsy: Prostatic adenocarcinoma, Fulton score 3+3=6 (Grade group 1) involving 12% of the tissue core. L. Prostate, right apex medial, core biopsy: Benign prostatic tissue. Data synopsis - Prostate needle biopsy Histologic type: Acinar adenocarcinoma Histologic grade: Leslee score: 3+3=6 (G, I, J, K) % of pattern 4: N/A CONTINUED ON NEXT PAGE ----- ------- Name: Howard Junior Age/Sex: 59/M : 1965 Unit#: [id number] Attend Dr: Aravind Wilkins MD Re03/09/25 Status: DEP REF Location: [facility] Disch: ----- ------- SPEC : [id number] RECD: 03/09/25-1029 STATUS: ADDY SUTTON NUM: [id number] KIET: 03/09/[address] [facility] [address]: Aravind Wilkins MD ENTERED: 03/09/25-1107 SP TYPE: Surgical OTHR DR: Marleen Jovel MD ORDERED: Prostate biopsy COMMENTS: Block I sent to [facility] on 03/31/25. Diagnosis (Continued) % of pattern [...] Howard Junior Age/Sex: 59/M : 1965 Unit#: [id number] Attend Dr: Aravind Wilkins MD Re03/09/25 Status: DEP REF Location: [facility] Disch: ----- ------- SPEC : [id number] RECD: 03/09/25 STATUS: ADDY SUTTON NUM: [id number] KIET: 03/09/[address] [facility] [address]: Aravind Wilkins MD ENTERED: 03/09/25-2470 SP TYPE: Surgical OTHR DR: Marleen Jovel MD ORDERED: Prostate biopsy COMMENTS: Block I sent to [facility] on 03/31/25. Gross Description (Continued) cylindrical threads [...] Howard Junior Age/Sex: 59/M : 1965 Unit#: [id number] Attend Dr: Aravind Wilkins MD Re03/09/25 Status: [facility] REF Location: [facility] Disch: ----- ------- SPEC : [id number] RECD: 03/09/25-1029 STATUS: CLARKJonh LESLEY NUM: [id number] KIET: 03/09/[address] [facility] [address]: Aravind Wilkins MD ENTERED: 03/09/25-8 SP TYPE: Surgical OTHR DR: Marleen Jovel MD ORDERED: Prostate biopsy COMMENTS: Block I sent to [facility] on 03/31/25. IHC S/NG Disclaimer NOTE: Unless otherwise stated, all tissue is formalin-fixed and paraffin-embedded. Some or all of the immunohistochemical tests reported herein may have been developed and their performance characteristics determined by [facility]. They have not been cleared or approved by the U.S. Food and Drug Administration (FDA). However, the FDA has determined that such clearance or approval is not necessary. This laboratory is certified under the Clinical Laboratory Improvement Amendments of 1988 (CLIA) as qualified to perform high complexity clinical laboratory testing. Copies To: Aravind Wilkins MD [facility] [address] [place], [place] [phone] Marleen Jovel MD [address] [phone] ----- ------- Signed (signature on file) Annalee Mazariegos MD 03/11/25 1206 ----- ------- END OF REPORT us Generic External Data Provider LAB PATHOLOGY ORD ERABLES Final Result Performing Organization Address City/State/[facility] Co de Phone Number [facility] [address] [place] [address] [phone] * [facility] US Lower Extremity Venous Duplex Bilateral (02/16/2025 2:33 PM EDT) 02/16/2025 2:33 PM EDT Narrative [facility] - 02/16/2025 3:02 PM EDT [place] [address] Ultrasound Report Signed Patient: Howard Junior MR#: [id number] : 1965 Acct:[id number] Age/Sex: 59 / M ADM Date: 02/16/25 Loc: .ED Attending Dr: Ordering Physician: Fredy Villalobos Date of Service: 02/16/25 Procedure(s): US venous duplex LE Accession Number(s): [id number] cc: Fredy Villalobos; Marleen Jovel MD EXAMINATION: [...] 02/16/25 1500 DD/ 1433 TD/TT: 02/16/25 1447 Family Dinner Service Specialist: Procedure Note Donotuseinterpreter, Image - 02/16/2025 [place] [address] Ultrasound Report Signed Patient: Howard Junior#: [id number] : 1965Acct:[id number] Age/Sex: 59 / MADM Date: 02/16/25 Loc: .ED Attending Dr: Ordering Physician: Fredy Villalobos Date of Service: 02/16/25 Procedure(s): US venous duplex LE BI Accession Number(s): [id number] cc: Fredy Villalobos; Marlene Jovel MD EXAMINATION: US TRIPLEX LOWER EXTREMITY, [...] 02/16/25 1500 DD/ 1433 TD/TT: 02/16/25 1447 Family Dinner Service Specialist: [facility] External Provider CV VASC ULAR PROCEDURES Final Result [facility] [address] [place] [phone] * (ABNORMAL) CBC auto differential (02/16/2025 1:14 PM EDT) Only the most recent of2 resultswithin the time period is included. White Blood Count 6.7 4.8 - 10.8 X10*3/uL [facility] Red Blood Count 4.53(L) 4.60 - 5.80 X10*6/uL [facility] Hemoglobin 14.6 14.0 - 18.0 g/dl [facility] Hematocrit 43.2 42.0 - 52.0 % [facility] Mean Corpuscular Volume 95.4 80.0 - 98.0 fL [facility] Mean Corpuscular Hemoglobin 32.2 27.0 - 33.0 pg [facility] Mean Corpuscular HGB Conc 33.8 31.0 - 36.0 g/dl [facility] Red Cell Distribution Width 12.9 11.0 - 16.0 % [facility] Platelet Count 188 160 - 400 X10*3/uL [facility] Mean Platelet Volume 10.1 9.4 - 12.4 fL [facility] Neutrophils Percent Auto 54.9 45 - 73 % [facility] Imm Gran Pct Auto 0.3 0.0 - 0.4 % [facility] Lymphocytes Percent Auto 30.5 20 - 40 % [facility] Monocytes Percent Auto 11.1(H) 2 - 11 % [facility] Eosinophils Percent Auto 2.8 0 - 4 % [facility] Basophils Percent Auto 0.4 0 - 2 % [facility] NRBC Pct Auto 0.0 0.0 - 0.2 /100WBC [facility] Neutrophils Absolute Auto 3.7 2.0 - 8.3 x10*3/uL [facility] Imm Gran Abs Auto 0.02 0.00 - 0.03 X10*3/uL [facility] Lymphocytes Absolute Auto 2.0 1.2 - 4.9 X10*3/uL [facility] Monocytes Absolute Auto 0.7 0.1 - 1.2 X10*3/uL [facility] Eosinophils Absolute Auto 0.2 0.0 - 0.4 X10*3/uL [facility] Basophils Absolute Auto 0.0 0.0 - 0.2 X10*3/uL [facility] NRBC Abs Auto 0.000 0.0 - 0.012 X10*3/uL [facility] 02/16/2025 1:14 PM EDT 02/16/2025 1:16 PM EDT us Generic External Data Provider LAB BLOOD ORDERAB LES Final Result Performing Organization Address City/[facility]/ZIP Co de Phone Number [facility] [address] [place] [phone] * Sed Rate by Modified Aaron (02/16/2025 1:14 PM EDT) Erythrocyte Sedimentation Rate 13 0 - 15 MM/HR [facility] Comment:Patients with polycy themia and many hemoglobin abnormalitiesmay have depressed sed rates whereas patients with anemiamay have elevated sed rates. 02/16/2025 1:14 PM EDT 02/16/2025 1:16 PM EDT us Generic External Data Provider LAB BLOOD ORDERAB LES Final Result Performing Organization Address [facility] Co de Phone Number [facility] [address] [place] [phone] * (ABNORMAL) C-reactive Protein (02/16/2025 1:14 PM EDT) C Reactive Protein 1.09(H) < or = 0.50 mg/dL [facility] 02/16/2025 1:14 PM EDT 02/16/2025 1:16 PM EDT us Generic External Data Provider LAB BLOOD ORDERAB LES Final Result [facility] [address] [place] [phone] * Comprehensive Metabolic Panel (02/16/2025 1:14 PM EDT) Only the most recent of2 resultswithin the time period is included. Sodium 141 135 - 145 mmol/L [facility] Potassium 3.7 3.3 - 5.1 mmol/L [facility] Chloride 106 96 - 108 mmol/L [facility] Carbon Dioxide 27 22 - 29 mmol/L [facility] Anion Gap 12 12 - 20 [facility] Urea Nitrogen (BUN) 14 9 - 16 mg/dL [facility] Creatinine, Serum 0.91 0.5 - 1.4 mg/dL [facility] Creatinine Clr Calc Pharmacy 96.0 [facility] Comment:eGFR (calculated fro m the MDRD study equation) and eCrCl(calculated from the Cockcroft-Gault equation) are based ondifferent parameters and may not yield comparable results.If eCrCl result is absurd, please check patient'sheight/weight. Estimated Glomerular Filt Rate >60 [facility] Comment:Chronic Kidney Disea se: Estimated GFR < 60 mL/min/1.94w9Avezfo Kidney Disease: Estimated GFR < 15 mL/min/1.73m2 Glucose 87 60 - 115 mg/dL [facility] Calcium 9.1 8.4 - 10.2 mg/dL [facility] Bilirubin, Total 0.4 0.0 - 1.0 mg/dL [facility] Aspartate Amino Transferase 23 5 - 37 U/L [facility] Alanine Aminotransferase 30 0 - 40 U/L [facility] Total Protein 7.1 6.5 - 8.0 g/dL [facility] Albumin Level 4.3 3.5 - 5.0 g/dL [facility] Alkaline Phosphatase 84 39 - 117 U/L [facility] 02/16/2025 1:14 PM EDT 02/16/2025 1:16 PM EDT us Generic External Data Provider LAB BLOOD ORDERAB LES Final Result Performing Organization Address City/State/[facility] Co de Phone Number [facility] [address] [place] [phone] * XR TIBIA FIBULA 2 VW BILATERAL (02/16/2025 12:35 PM EDT) Anatomical Region Laterality Modality Radiographic Vernell ging 02/16/2025 12:3 5 PM EDT Narrative 02/16/2025 1:46 PM EDT [address] [address] XRay Report Signed Patient: Howard Junior MR#: [id number] : 1965 Acct:[id number] Age/Sex: 59 / M ADM Date: 02/16/25 Loc: .ED Attending Dr: Ordering Physician: Fredy Villalobos Date of Service: 02/16/25 Procedure(s): XR Tibia Fibula Marty 2V Accession Number(s): [id number] cc: Fredy Villalobos; Marleen Jovel MD Exam: [...] in OV> 02/16/25 1344 DD/ 1235 TD/TT: 02/16/251334 Family Dinner Service Specialist: Procedure Note Donotuseinterpreter, Image - 02/16/[address] [address] XRay Report Signed Patient: Howard JuniorMR#: [id number] : 1965Acct:[id number] Age/Sex: 59 / MADM Date: 02/16/25 Loc: .ED Attending Dr: Ordering Physician: Fredy Villalobos Date of Service: 02/16/25 Procedure(s): XR Tibia Fibula Marty 2V Accession Number(s): [id number] cc: Fredy Villalobos; Marleen Jovel MD Exam: [...] in OV> 02/16/25 1344 DD/ 1235 TD/TT: 02/16/251334 Family Dinner Service Specialist: [facility] External Provider IMG XR PROCEDURES Final Result * (ABNORMAL) PSA,Total (02/12/2025 10:08 AM EDT) Prostate Specific Antigen 5.41(H) <0.05 - 4.0 ng/mL [facility] Comment:PSA methodology: Stas Jackson i ChemiluminescentMicroparticle Immunoassay (CMIA) 02/12/2025 10:0 8 AM EDT 02/12/2025 11:51 AM EDT us Generic External Data Provider LAB BLOOD ORDERAB LES Final Result Performing Organization Address [facility] Co de Phone Number [facility] [address] [place] [phone] * (ABNORMAL) B Type Natriuretic Peptide (BNP) (02/12/2025 10:08 AM EDT) Pathologist [facility] B Type Natriuretic Peptide 133(H) <100 pg/mL [facility] Blood Venous blood specimen / Unknown 02/12/2025 10:08 AM EDT 02/12/2025 11:50 AM EDT Tru Lomeli MD LAB BLOOD ORDERABLES Final Resul t Performing Organization Address [facility] Co de Phone Number [facility] [address] [place] [phone] * XR Chest 2 Views (02/12/2025 8:28 AM EDT) Anatomical Region Laterality Modality Chest Radiographic Vernell ging 02/12/2025 8:28 AM EDT Narrative 02/12/2025 9:26 AM EDT [address] [address] XRay Report Signed Patient: Howard Junior MR#: [id number] : 1965 Acct:[id number] Age/Sex: 59 / M ADM Date: 02/12/25 Loc: HO.HHCX Attending Dr: Tru Lomeli MD Ordering Physician: Tru Lomeli MD Date of Service: 02/12/25 Procedure(s): XR chest 2V Accession Number(s): [id number] cc: Tru Lomeli MD EXAMINATION: XR CHEST [...] in OV> 02/12/25922 DD/ 7 TD/TT: 02/12/25914 Family Dinner Service Specialist: Procedure Note Donotuseinterpreter, Image - 02/12/[address] [address] XRay Report Signed Patient: Howard JuniorMR#: [id number] : 1965Acct:[id number] Age/Sex: 59 / MADM Date: 02/12/25 Loc: HO.HHCX Attending Dr: Tru Lomeli MD Ordering Physician: Tru Lomeli MD Date of Service: 02/12/25 Procedure(s): XR chest 2V Accession Number(s): [id number] cc: Tru Lomeli MD EXAMINATION: XR CHEST [...] MD in OV> 02/12/25922 DD/ 7 TD/TT: 02/12/2515 Family Dinner Service Specialist: us Tru Lomeli MD IMG XR PROCEDURES Final Result * Hepatitis C Antibody with Reflex to HCV, RNA, Quantitative, Real-Time PCR (10/28/2023 10:49 AM EDT) Hepatitis C Antibody Nonreactive Nonreactive [facility] Comment:Antibodies to HCV no t detected; does not exclude early acuteHCV infection. Blood Venous blood specimen / Unknown 10/28/2023 10:49 AM EDT 10/28/2023 2:07 PM EDT us Marleen Jovel MD LAB BLOOD ORDERABLES Final Re sult [facility] [address] [place] [phone] * HIV-1/2 Antigen and Antibodies, Fourth Generation, with Reflexes (10/28/2023 10:49 AM EDT) HIV AB/AG Nonreactive Nonreactive [facility] Comment:HIV-1 p24 Ag and/or HIV-1/HIV-2 Ab not detected.A test result that is nonreactive does not exclude thepossibility of exposure to or infection with HIV-1 and/orHIV-2. Nonreactive results in this assay for individualswith prior exposure to HIV-1 and/or HIV-2 may be due toantigen and antibody levels that are below the limit ofdetection of this assay.The [email or web address] HIV Ag/Ab Combo assay result andsupplemental assay results should be interpreted inconjunction with the patient's clinical presentation,history and other laboratory results. If the results areinconsistent with clinical evidence, additional testing issuggested to confirm the result. Blood Venous blood specimen / Unknown 10/28/2023 10:49 AM EDT 10/28/2023 2:07 PM EDT us Marleen Jovel MD LAB BLOOD ORDERABLES Final Re sult Performing Organization Address [facility] Co de Phone Number [facility] [address] [place] [phone] * (ABNORMAL) Lipid Panel, Standard (10/28/2023 10:49 AM EDT) Triglycerides 62 <150 mg/dL [facility] Comment:Desirable Triglyceri de: less than 150 mg/dLBorderline High Triglyceride 150-199 mg/dLHigh Triglyceride: 200-499 mg/dLVery High Triglyceride: greater than or equal to 5OO mg/dL Cholesterol 174 <200 mg/dL [facility] Comment:Desirable Cholestero l: less than 200 mg/dLBorderline High Cholesterol: 200-239 mg/dLHigh Cholesterol: greater than 239 mg/dL LDL Cholesterol Calculated 107(H) <100 mg/dL [facility] Comment:Desirable LDL: less than 100 mg/dLNear Optimal/Above Optimal LDL: 110- 129 mg/dLBorderline High LDL: 130-159 mg/dLHigh LDL: 160-189 mg/dLVery High LDL: greater than or equal to 190 mg/dL HDL Cholesterol 55 >40 mg/dL [facility] Comment:Desirable HDL: great er than 40 mg/dL Note: This HDL assay may give artificially low results in patients with liver disease. Blood Venous blood specimen / Unknown 10/28/2023 10:49 AM EDT 10/28/2023 2:07 PM EDT Marleen Jovel MD LAB BLOOD ORDERABLES Final Re sult Performing Organization Address [facility]/ZIP Co de Phone Number [facility] [address] [place] [phone] from Last 3 Months or Most Recently Relevant to Health Maintenance Insurance [facility] Care Teams Supervisor Screen Printing Relationship Specialty Start Date End Date Marleen Jovel MD [address] [place] [address] PCP - General Family Medicine 10/28/23
== END 2025-05-14 08:48 | disposition home or self-care (01) ==
LOC: HO.MRI 08:47
PROVIDERS: PCP Internal Medicine; Visit Provider Urology
DX: C61 Malignant neoplasm of prostate (principal); Z19.1 Hormone sensitive malignancy status; Z80.42 Family history of malignant neoplasm of prostate
CPT/HCPCS: 72197; 76377; A9585

== ENCOUNTER 2025-05-19 14:09 | Outpatient (AMB) | payer OTHER, SELFPAY ==
--- NOTE | 2025-05-19 14:42 | MHC.OFFVIS ---
Intake Visit Reasons: 8W Prostate MRI/PVR(set) Intake Note: Reason for Visit: Prostate MRI/PVR Follow Up Urology Meds: Dutasteride Blood Thinners: None Labs: PSA- 5.41 (02/12/2025) Imaging: Prostate MRI- 05/14/2025 Last PVR: 0ML PVR: 196ml Hair Or Beauty Salon Assistant Required: No Grain Operations Manager: Grain Operations Manager Present Accompanied by: Spouse Allergies No Known Allergies Allergy (Verified 05/19/25 14:46) HPI Comments Details: Howard is a pleasant Luxembourger-speaking male. He is a patient of Dr. Jovel. He is seen for the following urologic conditions - prostate cancer Luxembourger translation provided by qualified medical technical writer Low volume prostate cancer Prostate MRI 05/18 - 11 mm PI-RADS 4 - Focus of abnormal signal intensity in the lateral aspect of the right peripheral zone in the mid gland Prolaris 05/18 - cell cycle score 4. Right side of grade group 1 curve. Borderline surveillance versus single modal therapy Discussed options including radiation versus cryotherapy Has significant cardiac risk factors so surgery significant higher risk Would like to proceed with cryotherapy Prostate cancer 03/18 - grade group 1, low volume TRUS volume 60 cc PT1c Leslee 3 + 3 4 cores out of 12 PSA 5.4 Histologic grade: Leslee score: 3+3=6 (right base lateral 16%, right mid lateral 55%, right mid medial 10%, right apex lateral 12%) Grade group: 1 Tumor quantitation: Number cores positive: 4 Total number of cores: 12 % of tissue involved: See above for details Periprostatic fat inv.: Not identified Seminal vesicle inv.: Not identified Perineural inv.: Not identified LVI: Not identified PFSH Medical History Abnormal EKG Arthritis Back pain Scoliosis Habitual snoring Bronchitis Asthma Nocturia GERD (gastroesophageal reflux disease) HTN (hypertension) Surgical History History of umbilical hernia repair (08/17/24) History of appendectomy H/O hand surgery Hx of hernia repair Hx of release of tendon Hx of bilateral inguinal hernia repair Social History Are you a primary healthcare administrator to a significant other at home: No Do you presently have visiting nurse or other home services: No Alcohol intake: current Alcohol intake frequency: a few times a week Patient Tobacco Use Status: Never used Tobacco Review of Systems Const Denies chills and Denies fever(s) Card Reports no additional complaints and Denies syncope Resp Denies cough GI Denies abdominal pain and Denies heartburn Reports as per HPI and Denies change in libido Neuro Denies syncope Psych Denies change in libido Endo Denies change in libido Physical Exam Const General: cooperative, healthy appearing, comfortable and no acute distress Orientation/consciousness: patient oriented x3 HEENT Face and sinus: Yes normal facial exam Mouth: moist mucous membranes Neck Neck: Yes normal visual inspection, Yes full ROM and Yes trachea midline Chest Chest palpation & inspection: normal inspection of the chest Resp Effort & Inspection: normal respiratory effort, able to speak in complete sentences and no respiratory distress GI Inspection: Yes normal to inspection Back/Spine/Pelvis Cervical Spine: normal cervical lordosis Thoracic/Lumbar Spine: thoracic and lumbar spine normal to inspection Skin General skin exam: no rashes or lesions noted Neuro General: patient oriented x3, gait normal, tone normal and moves all extremities Extrem General: Yes normal to inspection and Yes capillary refill normal Office Procedures Post Void Residual Post Residual Void Post Void Residual (PVR): [id number] Void Residual by ultrasound Assessment & Plan Assessment & Plan (1) Hormone sensitive prostate cancer: Comment: low volume grade group 1 Code(s): C61 - Malignant neoplasm of prostate; Z19.1 - Hormone sensitive malignancy status Category: Medical Plan Risks, benefits and alternatives to therapy were discussed. These include but are not limited to infection, bleeding, damage to local organs and tissues, need for further interventions. Anesthetic risks regarding cardiac arrhythmia, blood clots, and potential mortality were discussed. The patient understands the typical recovery time and the outpatient nature of the procedure. After consideration of these risks the patient gives full informed consent and they wish to move ahead with the procedure. - targeted prostate cryotherapy Orders: Orders AMB Post Void Residual by ultrasound 05/19/25 R35.1 - Nocturia Patient Instructions: This note is constructed using voice recognition software. While every effort has been made to ensure accuracy oracle forms developer errors may have been included. Imaging studies, laboratory and physical exam results were discussed and reviewed in detail. No major barriers to patient understanding were identified. An opportunity to ask questions regarding the treatment plan was provided. All questions were answered. The patient expressed understanding and agreement with the above treatment plan. The patient is aware they should contact our office by phone for worsening of their current condition or the appearance of new urologic symptoms. Compliance is encouraged with any medications and followup testing that is ordered. It is a privilege to participate in the urologic care of your patient. If you have any questions or concerns regarding treatment for the above conditions, or other urologic issues, please do not hesitate to contact me. The office telephone contact is [phone]. Sincerely, Dr Aravind Wilkins MD, [facility] - Urology Compassionate Specialist Care for the Genitourinary System Coding Level of Care Code Est Pt Level 4 (37310) Diagnoses Hormone sensitive prostate cancer C61; Z19.1 CPT Codes Post Residual Void - PVR CPT Code: 96502-Jyxw Void Residual by ultrasound ([id number])
--- OUTSIDE RECORDS SUMMARY | 2025-05-19 17:08 | XMS_ITS | Encounter Summary ---
Author Organization [employer] Address [address] [facility] [address] [place] [address] Care Team Providers Care Rn Testing Name Role Phone Marleen Jovel MD Primary Care Provider [phone] Encounter Details Date Type Department Care Team (Late st Contact Info) Description 10/05/2024 Orders Only [facility] [address] [place] [address] Provider, MD Wang Social History Tobacco Use [...] Description 06/11/2025 3:00 PM EST Office Visit [facility] [address] [place] [address] Marleen Jovel MD [address] [place] [address] documented as of this encounter Procedures Procedure [...] documented as of this encounter Care Teams Rn Testing Relationship Specialty Start Date End Date Marleen Jovel MD [address] [place] [address] PCP - General Family Medicine 10/28/23 documented as of this encounter
--- OUTSIDE RECORDS SUMMARY | 2025-05-19 17:08 | XMS_ITS | Encounter Summary ---
Author Organization [employer] Address [address] [place] [address] Care Team Providers Care Film Color Tester Name Role Phone Marleen Jovel MD Primary Care Provider [phone] Encounter Details Date Type Department Care Team (Late st Contact Info) Description 03/22/2025 Orders Only [facility] [address] [place] [address] Provider, MD Wang Social History Tobacco Use [...] Description 06/11/2025 3:00 PM EST Office Visit [facility] [address] [place] [address] Marleen Jovel MD [address] [place] [address] documented as of this encounter Procedures Procedure [...] as of this encounter Care Teams Film Color Tester Relationship Specialty Start Date End Date Marleen Jovel MD [address] [place] [address] PCP - General Family Medicine 10/28/23 documented as of this encounter
--- OUTSIDE RECORDS SUMMARY | 2025-05-19 17:08 | XMS_ITS | Clinical Summary ---
Author Organization [employer] Address [address] [place] [address] Care Team Providers Care Cage Unloader Name Role Phone Marleen Jovel MD Primary Care Provider [phone] Allergies No known active allergies Medications * [...] referral in the system. [place] [facility] Please attach media from ECG done in [...] Description 05/10/2025 10:00 AM EST Office Visit [facility] [address] [place] [address] Marleen Jovel MD Elevated serum creatinine (Primary Dx); Prostate cancer (CMS/HCC) (HCC); Essential hypertension; Venous stasis dermatitis; Encounter for immunization; Colon cancer screening; Umbilical hernia without obstruction and without gangrene; Grade III hemorrhoids 05/10/2025 Travel 05/03/2025 Patient Outreach [facility] [address] [place] [phone] Marleen Jovel MD Pre-visit Planning ([facility] screening was completed on 03/25/2025) 04/28/2025 Results Follow-Up [facility] [address] [place] [address] Nhung Bearden MD Urinalysis w/reflex microscopic, MR CAD, MR Prostate w and w/o Contrast 04/27/2025 9:30 AM EST Office Visit [facility] [address] [place] [address] Nhung Bearden MD Venous stasis dermatitis (Primary Dx); Gross hematuria 04/27/2025 Orders Only [facility] [address] [place] [address] Nhung Bearden MD 04/27/2025 Telephone [facility] [address] [place] [phone] Violeta Ta RN 04/27/2025 Travel 04/20/2025 1:00 PM EDT Office Visit [facility] [address] [place] [address] Trena Billings MD Cellulitis of lower extremity, unspecified laterality; Lower extremity edema 04/20/2025 Travel 04/01/2025 Telephone [facility] [address] [place] [address] Marleen Jovel MD 03/31/2025 Orders Only [facility] External Provider, [facility] 03/25/2025 10:00 AM EDT Office Visit [facility] [address] [place] [address] Nhung Bearden MD Venous stasis dermatitis (Primary Dx); Essential hypertension; SOB (shortness of breath); Diastolic dysfunction; Other depression 03/25/2025 Travel 03/24/2025 Telephone [facility] [address] [place] [address] Marleen Jovel MD Chart Prep 03/22/2025 Orders Only [facility] [address] [place] [address] ProviderWang MD 03/11/2025 11:00 AM EDT Office Visit [facility] [address] [place] [address] Tru Lomeli MD Bilateral leg edema (Primary Dx); Essential hypertension [I10] 03/11/2025 Telephone [facility] [address] [address] Tru Lomeli MD 03/11/2025 Travel 03/09/2025 Orders Only GENERIC EXTERNAL DATA DEPARTMENT Provider, Generic External Data 03/03/2025 3:40 PM EDT Office Visit [facility] [address] [place] [address] Nhung Bearden MD Bilateral leg edema (Primary Dx); Venous stasis dermatitis; Pedal edema; Mild diastolic dysfunction 03/03/2025 Travel 03/02/2025 Telephone [facility] [address] [place] [address] Marleen Jovel MD Appointment Request 03/01/2025 Telephone [facility] [address] [place] [address] Nhung Bearden MD No Show 02/16/2025 10:00 AM EDT Office Visit [facility] [address] [place] [address] Noel Conn MD Cellulitis of right leg (Primary Dx); Cellulitis of left leg; Lower extremity edema; Dyspnea on exertion; Rhinosinusitis 02/16/2025 Orders Only GENERIC EXTERNAL DATA DEPARTMENT Provider, Generic External Data 02/16/2025 Telephone [facility] [address] [place] [address] Kimmy Ndiaye, INTELLIGENCE MANAGER Expect 02/16/2025 Telephone [facility] [address] [place] [address] Kimmy Ndiaye, JONATHAN Nurse Triage from Last 3 Months Immunizations Immunization Administration [...] 3:00 PM EST Office Visit [facility] [address] [place] [address] Marleen Jovel MD [address] [place] [address] Health Maintenance Due Date Last Done Comments [...] (3 - 2024- season) 2025 01/07/2021, 12/17/2020 Alcohol/Substance [...] Procedure Name Priority Date/Time Associated Diagnosis Comments MR PROSTATE W AND WO CONTRAST Routine 05/14/2025 9:19 AM EST MR CAD Routine 05/14/2025 9:19 AM EST URINALYSIS WITH REFLEX MICROSCOPIC Routine 04/27/2025 10:27 [...] VW BILATERAL Routine 02/16/2025 12:35 PM EDT HEPATITIS C AB W/REFL TO HCV [...] Recently Relevant to Health Maintenance Results * MR CAD (05/14/2025 9:19 AM EST) Anatomical Region Laterality Modality Magnetic Resonan ce 05/14/2025 9:19 AM EST Narrative 05/14/2025 10:41 AM EST [place] [address] Magnetic Resonance Report Signed Patient: Howard Junior MR#: [id number] : 1965 Acct:[id number] Age/Sex: 59 / M ADM Date: 05/14/25 Loc: HO.MRI Attending Dr: Aravind Wilkins MD Ordering Physician: Zaki Harris MD Date of Service: 05/14/25 Procedure(s): MR CAD Accession Number(s): [id number] cc: Zaki Harris MD; Nhung Bearden MD Reason for Exam: Z80.42 - Family history of malignant neoplasm of prostate EXAMINATION: MR PROSTATE WITHOUT THEN WITH IV CONTRAST, MR EXAM UNLISTED HISTORY: C61 - Malignant neoplasm of prostate TECHNIQUE: 1.5T body coil survey of the pelvis was performed. Phase array coil imaging of the prostate was performed in multiplanar high resolution axial, coronal, sagittal fast spin echo T2 and axial T1 weighted imaging sequences. Axial diffusion imaging at intermediate and high field performed with ADC mapping. Next, 10 mL Gadavist was given by intravenous infusion, and dynamic axial imaging performed. 3-D reconstructions and post-processing were performed on an independent workstation by the radiologist for biopsy planning using image fusion. COMPARISON: There are no prior studies available for comparison. CLINICAL DATA: Most recent PSA: 5.41 ng/mL on 02/12/2025. PSA Density: 0.20 ng/mL squared Prostate Biopsy: Positive biopsy on 03/09/2025 with a Detroit score of 3+3 = 6. FINDINGS: Prostate size: 3.4 x 4.4 x 3.4 cm. Calculated prostate volume is 26.4 mL. Hemorrhage: None. Transitional Zone: There is mild heterogeneous nodular hypertrophy of the transitional zone. Peripheral Zone: There is an area of interest in the lateral aspect of the right peripheral zone in the mid gland and characteristics as follows: Area of interest #1: Location: Lateral right peripheral zone in the mid gland measuring approximately 11 mm (series 7, images 19-21). DWI PI-RADS v2.1 score: 4 T2 PI-RADS v2.1 score: 4 DCE PI-RADS v2.1 score: + Overall PI-RADS v2.1 score: 4 Capsular contact: yes Extracapsular extension: None Seminal vesicle invasion: None Neurovascular bundle involvement: None Seminal Vesicles/Ejaculatory Ducts: Symmetric and normal in signal and caliber. Pelvic Lymph Nodes: No obturator or internal iliac lymph nodes meeting size criteria for adenopathy. Marrow Signal: Normal marrow signal and enhancement without focal lesion identified. MR/MR CAD IMPRESSION: Focus of abnormal signal intensity in the lateral aspect of the right peripheral zone in the mid gland, suspicious for clinically significant prostate carcinoma. PI-RADS 4: High (clinically significant cancer is likely to be present) PI-RADS Assessment Categories PI-RADS 1: Very low (clinically significant cancer is highly unlikely to be present) PI-RADS 2: Low (clinically significant cancer is unlikely to be present) PI-RADS 3: Intermediate (the presence of clinically significant cancer is equivocal) PI-RADS 4: High (clinically significant cancer is likely to be present) PI-RADS 5: Very high (clinically significant cancer is highly likely to be present) [employer]. MR Prostate Imaging Reporting and Data System version 2.1. [email or web address]/Quality-Safety/Resources/PIRADS/ Electronically signed by: Hussain Aguiar MD 05/14/2025 10:39 AM EST Dictated By: Hussain Aguiar MD Signed By: <Electronically signed by Hussain Aguiar MD in OV> 05/14/25 1039 DD/ TD/TT: 05/14/2550 Software Development Project Manager: Procedure Note Donotuseinterpreter, Image - 05/14/[address] [address] Magnetic Resonance Report Signed Patient: Howard JuniorMR#: [id number] : 1965Acct:[id number] Age/Sex: 59 / MADM Date: 05/14/25 Loc: HO.MRI Attending Dr: Aravind Wilkins MD Ordering Physician: Zaki Harris MD Date of Service: 05/14/25 Procedure(s): MR CAD Accession Number(s): [id number] cc: Zaki Harris MD; Nhung Bearden MD Reason for Exam: Z80.42 - Family history of malignant neoplasm ofprostate EXAMINATION: MR PROSTATE WITHOUT THEN WITH IV CONTRAST, MR EXAM UNLISTED HISTORY: C61 - Malignant neoplasm of prostate TECHNIQUE: 1.5T body coil survey of the pelvis was performed. Phase array coil imaging of the prostate was performed in multiplanar high resolution axial, coronal, sagittal fast spin echo T2 and axial T1 weighted imaging sequences. Axial diffusion imaging at intermediate and high field performed with ADC mapping. Next, 10 mL Gadavist was given by intravenous infusion, and dynamic axial imaging performed. 3-D reconstructions and post-processing were performed on an independent workstation by the radiologist for biopsy planning using image fusion. COMPARISON: There are no prior studies available for comparison. CLINICAL DATA: Most recent PSA: 5.41 ng/mL on 02/12/2025. PSA Density: 0.20 ng/mL squared Prostate Biopsy: Positive biopsy on 03/09/2025 with a Leslee score of 3+3 = 6. FINDINGS: Prostate size: 3.4 x 4.4 x 3.4 cm. Calculated prostate volume is 26.4 mL. Hemorrhage: None. Transitional Zone: There is mild heterogeneous nodular hypertrophy of the transitional zone. Peripheral Zone: There is an area of interest in the lateral aspect of the right peripheral zone in the mid gland and characteristics as follows: Area of interest #1: Location: Lateral right peripheral zone in the mid gland measuring approximately 11 mm (series 7, images 19-21). DWI PI-RADS v2.1 score: 4 T2 PI-RADS v2.1 score: 4 DCE PI-RADS v2.1 score: + Overall PI-RADS v2.1 score: 4 Capsular contact: yes Extracapsular extension: None Seminal vesicle invasion: None Neurovascular bundle involvement: None Seminal Vesicles/Ejaculatory Ducts: Symmetric and normal in signal and caliber. Pelvic Lymph Nodes: No obturator or internal iliac lymph nodes meeting size criteria for adenopathy. Marrow Signal: Normal marrow signal and enhancement without focal lesion identified. MR/MR CAD IMPRESSION: Focus of abnormal signal intensity in the lateral aspect of the right peripheral zone in the mid gland, suspicious for clinically significant prostate carcinoma. PI-RADS 4: High (clinically significant cancer is likely to be present) PI-RADS Assessment Categories PI-RADS 1: Very low (clinically significant cancer is highly unlikely to be present) PI-RADS 2: Low (clinically significant cancer is unlikely to be present) PI-RADS 3: Intermediate (the presence of clinically significant cancer is equivocal) PI-RADS 4: High (clinically significant cancer is likely to be present) PI-RADS 5: Very high (clinically significant cancer is highly likely to be present) [employer]. MR Prostate Imaging Reporting and Data System version 2.1. [email or web address].acr.org/Quality-Safety/Resources/PIRADS/ Electronically signed by: Hussain Augiar MD 05/14/2025 10:39 AM EST Dictated By: Hussain Aguiar MD Signed By: <Electronically signed by Hussain Aguiar MD in OV> 05/14/25 1039 DD/ 8 TD/TT: 05/14/2550 Software Development Project Manager: [facility] External Provider IMG MRI PROCEDURES Final Result * MR Prostate w and w/o Contrast (05/14/2025 9:19 AM EST) Anatomical Region Laterality Modality Magnetic Resonan ce 05/14/2025 9:19 AM EST Narrative 05/14/2025 10:41 AM EST [address] [address] Magnetic Resonance Report Signed Patient: Howard Junior MR#: [id number] : 1965 Acct:[id number] Age/Sex: 59 / M ADM Date: 05/14/25 Loc: HO.MRI Attending Dr: Aravind Wilkins MD Ordering Physician: Aravind Wilkins MD Date of Service: 05/14/25 Procedure(s): MR Prostate wo/w con Accession Number(s): [id number] cc: Nhung Bearden MD; Aravind Wilkins MD Reason for Exam: C61 - Malignant neoplasm of prostate EXAMINATION: MR PROSTATE WITHOUT THEN WITH IV CONTRAST, MR EXAM UNLISTED HISTORY: C61 - Malignant neoplasm of prostate TECHNIQUE: 1.5T body coil survey of the pelvis was performed. Phase array coil imaging of the prostate was performed in multiplanar high resolution axial, coronal, sagittal fast spin echo T2 and axial T1 weighted imaging sequences. Axial diffusion imaging at intermediate and high field performed with ADC mapping. Next, 10 mL Gadavist was given by intravenous infusion, and dynamic axial imaging performed. 3-D reconstructions and post-processing were performed on an independent workstation by the radiologist for biopsy planning using image fusion. COMPARISON: There are no prior studies available for comparison. CLINICAL DATA: Most recent PSA: 5.41 ng/mL on 02/12/2025. PSA Density: 0.20 ng/mL squared Prostate Biopsy: Positive biopsy on 03/09/2025 with a Leslee score of 3+3 = 6. FINDINGS: Prostate size: 3.4 x 4.4 x 3.4 cm. Calculated prostate volume is 26.4 mL. Hemorrhage: None. Transitional Zone: There is mild heterogeneous nodular hypertrophy of the transitional zone. Peripheral Zone: There is an area of interest in the lateral aspect of the right peripheral zone in the mid gland and characteristics as follows: Area of interest #1: Location: Lateral right peripheral zone in the mid gland measuring approximately 11 mm (series 7, images 19-21). DWI PI-RADS v2.1 score: 4 T2 PI-RADS v2.1 score: 4 DCE PI-RADS v2.1 score: + Overall PI-RADS v2.1 score: 4 Capsular contact: yes Extracapsular extension: None Seminal vesicle invasion: None Neurovascular bundle involvement: None Seminal Vesicles/Ejaculatory Ducts: Symmetric and normal in signal and caliber. Pelvic Lymph Nodes: No obturator or internal iliac lymph nodes meeting size criteria for adenopathy. Marrow Signal: Normal marrow signal and enhancement without focal lesion identified. MR/MR Prostate wo/w con IMPRESSION: Focus of abnormal signal intensity in the lateral aspect of the right peripheral zone in the mid gland, suspicious for clinically significant prostate carcinoma. PI-RADS 4: High (clinically significant cancer is likely to be present) PI-RADS Assessment Categories PI-RADS 1: Very low (clinically significant cancer is highly unlikely to be present) PI-RADS 2: Low (clinically significant cancer is unlikely to be present) PI-RADS 3: Intermediate (the presence of clinically significant cancer is equivocal) PI-RADS 4: High (clinically significant cancer is likely to be present) PI-RADS 5: Very high (clinically significant cancer is highly likely to be present) [employer]. MR Prostate Imaging Reporting and Data System version 2.1. http://www.acr.org/Quality-Safety/Resources/PIRADS/ Electronically signed by: Hussain Aguiar MD 05/14/2025 10:39 AM EST Dictated By: Hussain Aguiar MD Signed By: <Electronically signed by Hussain Aguiar MD in OV> 05/14/25 1039 DD/ 0919 TD/TT: 05/14/25 0950 Software Development Project Manager: Procedure Note Donotuseinterpreter, Image - 05/14/2025 [place] [address] Magnetic Resonance Report Signed Patient: Howard Junior#: [id number] : 1965Acct:[id number] Age/Sex: 59 / MADM Date: 05/14/25 Loc: HO.MRI Attending Dr: Aravind Wilkins MD Ordering Physician: Aravind Wilkins MD Date of Service: 05/14/25 Procedure(s): MR Prostate wo/w con Accession Number(s): [id number] cc: Nhung Bearden MD; Aravind Wilkins MD Reason for Exam: C61 - Malignant neoplasm of prostate EXAMINATION: MR PROSTATE WITHOUT THEN WITH IV CONTRAST, MR EXAM UNLISTED HISTORY: C61 - Malignant neoplasm of prostate TECHNIQUE: 1.5T body coil survey of the pelvis was performed. Phase array coil imaging of the prostate was performed in multiplanar high resolution axial, coronal, sagittal fast spin echo T2 and axial T1 weighted imaging sequences. Axial diffusion imaging at intermediate and high field performed with ADC mapping. Next, 10 mL Gadavist was given by intravenous infusion, and dynamic axial imaging performed. 3-D reconstructions and post-processing were performed on an independent workstation by the radiologist for biopsy planning using image fusion. COMPARISON: There are no prior studies available for comparison. CLINICAL DATA: Most recent PSA: 5.41 ng/mL on 02/12/2025. PSA Density: 0.20 ng/mL squared Prostate Biopsy: Positive biopsy on 03/09/2025 with a Leslee score of 3+3 = 6. FINDINGS: Prostate size: 3.4 x 4.4 x 3.4 cm. Calculated prostate volume is 26.4 mL. Hemorrhage: None. Transitional Zone: There is mild heterogeneous nodular hypertrophy of the transitional zone. Peripheral Zone: There is an area of interest in the lateral aspect of the right peripheral zone in the mid gland and characteristics as follows: Area of interest #1: Location: Lateral right peripheral zone in the mid gland measuring approximately 11 mm (series 7, images 19-21). DWI PI-RADS v2.1 score: 4 T2 PI-RADS v2.1 score: 4 DCE PI-RADS v2.1 score: + Overall PI-RADS v2.1 score: 4 Capsular contact: yes Extracapsular extension: None Seminal vesicle invasion: None Neurovascular bundle involvement: None Seminal Vesicles/Ejaculatory Ducts: Symmetric and normal in signal and caliber. Pelvic Lymph Nodes: No obturator or internal iliac lymph nodes meeting size criteria for adenopathy. Marrow Signal: Normal marrow signal and enhancement without focal lesion identified. MR/MR Prostate wo/w con IMPRESSION: Focus of abnormal signal intensity in the lateral aspect of the right peripheral zone in the mid gland, suspicious for clinically significant prostate carcinoma. PI-RADS 4: High (clinically significant cancer is likely to be present) PI-RADS Assessment Categories PI-RADS 1: Very low (clinically significant cancer is highly unlikely to be present) PI-RADS 2: Low (clinically significant cancer is unlikely to be present) PI-RADS 3: Intermediate (the presence of clinically significant cancer is equivocal) PI-RADS 4: High (clinically significant cancer is likely to be present) PI-RADS 5: Very high (clinically significant cancer is highly likely to be present) [employer]. MR Prostate Imaging Reporting and Data System version 2.1. http://www.acr.org/Quality-Safety/Resources/PIRADS/ Electronically signed by: Hussain Aguiar MD 05/14/2025 10:39 AM EST Dictated By: Hussain Aguiar MD Signed By: <Electronically signed by Hussain Aguiar MD in OV> 05/14/25 1039 DD/ 0919 TD/TT: 05/14/25 0950 Software Development Project Manager: [facility] External Provider IMG MRI PROCEDURES Final Result * Urinalysis w/reflex microscopic (04/27/2025 10:27 AM EST) Color Urine Yellow [facility] Appearance Urine Clear [facility] PH 6.5 5.0 - 9.0 [facility] Glucose Urine UA Negative Negative mg/dL [facility] Urine Blood Negative Negative [facility] Specific [place] - Urine 1.015 1.005 - 1.025 [facility] Urine Protein Negative Neg-Trace mg/dL [facility] Urine Ketones Negative Negative mg/dL [facility] Nitrite Urine Negative Negative [facility] Leukocyte Esterase Urine Negative Negative [facility] 04/27/2025 10:2 7 AM EST 04/27/2025 2:08 PM EST Narrative [facility] - 04/27/2025 2:21 PM EST [id number], Clean Catch Nhung Bearden MD LAB URINE ORDERABLES Final Result [facility] [address] [place] [phone] * FL BARIUM SWALLOW MODIFIED (03/31/2025 2:22 PM EDT) Anatomical Region Laterality Modality Head, Neck Radiographic Vernell ging 03/31/2025 2:22 PM EDT Narrative 03/31/2025 3:18 PM EDT [address] [address] Fluoroscopy Report Signed Patient: Howard Junior MR#: [id number] : 1965 Acct:[id number] Age/Sex: 59 / M ADM Date: 03/31/25 Loc: HO.XRAY Attending Dr: Zonia Gongora MD Ordering Physician: Zonia Gongora MD Date of Service: 03/31/25 Procedure(s): FL Modified Barium Swallow Accession Number(s): [id number] cc: Marleen Jovel MD; Zonia Gongora MD [...] 03/31/25 1515 DD/ 1422 TD/TT: 03/31/25 1445 Software Development Project Manager: Procedure Note Donotuseinterpreter, Image - 03/31/[address] [address] Fluoroscopy Report Signed Patient: Howard JuniorMR#: [id number] : 1965Acct:[id number] Age/Sex: 59 / MADM Date: 03/31/25 Loc: HO.XRAY Attending Dr: Zonia Gongora MD Ordering Physician: Zonia Gongora MD Date of Service: 03/31/25 Procedure(s): FL Modified Barium Swallow Accession Number(s): [id number] cc: Marleen Jovel MD; Zonia Gongora MD [...] 03/31/25 1515 DD/ 1422 TD/TT: 03/31/25 1445 Software Development Project Manager: [facility] External Provider IMG FLU OROSCOPY PROCEDURES Final [...] 8:25 AM EDT 03/09/2025 10:30 AM EDT [facility] - 04/21/2025 9:11 AM EDT ----- ------- Name: Howard Junior Age/Sex: 59/M : 1965 Unit#: [id number] Attend Dr: Aravind Wilkins MD Re03/09/25 Status: DEP REF Location: [facility] Disch: ----- ------- SPEC : [id number] RECD: 03/09/250 STATUS: ADDY SUTTON NUM: [id number] KIET: 03/09/[address] [facility] [address]: Aravind Wilkins MD ENTERED: 03/09/25-8 SP TYPE: Surgical OTHR DR: Marleen Jovel MD ORDERED: Prostate biopsy COMMENTS: Block I sent to [facility] on 03/31/25. Addendum Addendum 1 Entered: 04/21/25 Please see Prolaris Biopsy Test report from [facility] with the following results (part G): - Prolaris molecular score: 4.9 (single-modal treatment) Testing performed at [facility], [place], [place]. See report in its entirety in [...] right base lateral, core biopsy: Prostatic adenocarcinoma, Detroit score 3+3=6 (Grade group 1) involving 16% [...] biopsy Histologic type: Acinar adenocarcinoma Histologic grade: Detroit score: 3+3=6 (G, I, J, K) % of pattern 4: N/A CONTINUED ON NEXT PAGE ----- ------- Name: Howard Junior Age/Sex: 59/M : 1965 Unit#: [id number] Attend Dr: Aravind Wilkins MD Re03/09/25 Status: [facility] REF Location: [facility] Disch: ----- ------- SPEC : [id number] RECD: 03/09/25-1029 STATUS: CLARKJonh LESLEY NUM: [id number] KIET: 03/09/[address] [facility] [address]: Aravind Wilkins MD ENTERED: 03/09/25-8 SP TYPE: Surgical OTHR DR: Marleen Jovel MD ORDERED: Prostate biopsy COMMENTS: Block I sent to [facility] on 03/31/25. Diagnosis (Continued) % of pattern [...] Howard Junior Age/Sex: 59/M : 1965 Unit#: [id number] Attend Dr: Aravind Wilkins MD Re03/09/25 Status: DEP REF Location: [facility] Disch: ----- ------- SPEC : [id number] RECD: 03/09/25-1029 STATUS: ADDY SUTTON NUM: [id number] KIET: 03/09/[address] [facility] [address]: Aravind Wilkins MD ENTERED: 03/09/25-1108 SP TYPE: Surgical OTHR DR: Marleen Jovel MD ORDERED: Prostate biopsy COMMENTS: Block I sent to [facility] on 03/31/25. Gross Description (Continued) cylindrical threads [...] Alli OrtizHoward Age/Sex: 59/M : 1965 Unit#: [id number] Attend Dr: Aravind Wilkins MD Re03/09/25 Status: DEP REF Location: [facility] Disch: ----- ------- SPEC : [id number] RECD: 03/09/25 STATUS: ADDY SUTTON NUM: [id number] KIET: 03/09/[address] [facility] [address]: Aravind Wilkins MD ENTERED: 03/09/25 SP TYPE: Surgical OTHR DR: Marleen Jovel MD ORDERED: Prostate biopsy COMMENTS: Block I sent to [facility] on 03/31/25. IHC S/NG Disclaimer NOTE: Unless otherwise stated, all tissue is formalin-fixed and paraffin-embedded. Some or all of the immunohistochemical tests reported herein may have been developed and their performance characteristics determined by [facility]. They have not been cleared or approved by the U.S. Food and Drug Administration (FDA). However, the FDA has determined that such clearance or approval is not necessary. This laboratory is certified under the Clinical Laboratory Improvement Amendments of 1988 (CLIA) as qualified to perform high complexity clinical laboratory testing. Copies To: Aravind Wilkins MD [facility] [address] [place], [place] [phone] Marleen Jovel MD [address] [address] ----- ------- Signed (signature on file) Annalee Mazariegos MD 03/11/25 1206 ----- ------- END OF REPORT us Generic External Data Provider LAB PATHOLOGY ORD ERABLES Final Result Performing Organization Address City/State/[facility] Co de Phone Number [facility] [address] [place] [phone] * [facility] US Lower Extremity Venous Duplex Bilateral (02/16/2025 2:33 PM EDT) 02/16/2025 2:33 PM EDT Narrative [facility] - 02/16/2025 3:02 PM EDT [address] [address] Ultrasound Report Signed Patient: Howard Junior MR#: [id number] : 1965 Acct:[id number] Age/Sex: 59 / M ADM Date: 02/16/25 Loc: .ED Attending Dr: Ordering Physician: Fredy Villalobos Date of Service: 02/16/25 Procedure(s): US venous duplex LE BI Accession Number(s): [id number] cc: Fredy Villalobos; Marleen Jovel MD EXAMINATION: [...] Blandon MD in OV> 02/16/25 1500 DD/ 32 TD/TT: 02/16/251446 Software Development Project Manager: Procedure Note Chapister, Image - 02/16/2025 [place] [address] Ultrasound Report Signed Patient: Howard JuniorMR#: [id number] : 1965Acct:[id number] Age/Sex: 59 / MADM Date: 02/16/25 Loc: .ED Attending Dr: Ordering Physician: Freyd Villalobos Date of Service: 02/16/25 Procedure(s): US venous duplex LE BI Accession Number(s): [id number] cc: Fredy Villalobos; Marleen Jovel MD EXAMINATION: [...] MD Signed By: <Electronically signed by Alexandro Blandno MD in OV> 02/16/25 1500 DD/ 32 TD/TT: 02/16/251446 Software Development Project Manager: [facility] External Provider CV VASC ULAR PROCEDURES Final Result [facility] [address] [place] [phone] * (ABNORMAL) CBC auto differential (02/16/2025 1:14 PM EDT) White Blood Count 6.7 4.8 - 10.8 X10*3/uL [facility] Red Blood Count 4.53(L) 4.60 - 5.80 X10*6/uL [facility] Hemoglobin 14.6 14.0 - 18.0 g/dl [facility] Hematocrit 43.2 42.0 - 52.0 % [facility] Mean Corpuscular Volume 95.4 80.0 - 98.0 fL [facility] Mean Corpuscular Hemoglobin 32.2 27.0 - 33.0 pg [facility] Mean Corpuscular HGB Conc 33.8 31.0 - 36.0 g/dl [facility] Red Cell Distribution Width 12.9 11.0 - 16.0 % [facility] Platelet Count 188 160 - 400 X10*3/uL [facility] Mean Platelet Volume 10.1 9.4 - 12.4 fL [facility] Neutrophils Percent Auto 54.9 45 - 73 % [facility] Imm Gran Pct Auto 0.3 0.0 - 0.4 % [facility] Lymphocytes Percent Auto 30.5 20 - 40 % [facility] Monocytes Percent Auto 11.1(H) 2 - 11 % [facility] Eosinophils Percent Auto 2.8 0 - 4 % [facility] Basophils Percent Auto 0.4 0 - 2 % [facility] NRBC Pct Auto 0.0 0.0 - 0.2 /100WBC [facility] Neutrophils Absolute Auto 3.7 2.0 - 8.3 x10*3/uL [facility] Imm Gran Abs Auto 0.02 0.00 - 0.03 X10*3/uL [facility] Lymphocytes Absolute Auto 2.0 1.2 - 4.9 X10*3/uL [facility] Monocytes Absolute Auto 0.7 0.1 - 1.2 X10*3/uL [facility] Eosinophils Absolute Auto 0.2 0.0 - 0.4 X10*3/uL [facility] Basophils Absolute Auto 0.0 0.0 - 0.2 X10*3/uL [facility] NRBC Abs Auto 0.000 0.0 - 0.012 X10*3/uL [facility] 02/16/2025 1:14 PM EDT 02/16/2025 1:16 PM EDT us Generic External Data Provider LAB BLOOD ORDERAB LES Final Result Performing Organization Address City/[facility]/ZIP Co de Phone Number [facility] [address] [place] [phone] * Sed Rate by Modified Aaron (02/16/2025 1:14 PM EDT) Erythrocyte Sedimentation Rate 13 0 - 15 MM/HR [facility] Comment:Patients with polycy themia and many hemoglobin abnormalitiesmay have depressed sed rates whereas patients with anemiamay have elevated sed rates. 02/16/2025 1:14 PM EDT 02/16/2025 1:16 PM EDT us Generic External Data Provider LAB BLOOD ORDERAB LES Final Result Performing Organization Address [facility] Co de Phone Number [facility] [address] [place] [phone] * (ABNORMAL) C-reactive Protein (02/16/2025 1:14 PM EDT) C Reactive Protein 1.09(H) < or = 0.50 mg/dL [facility] 02/16/2025 1:14 PM EDT 02/16/2025 1:16 PM EDT us Generic External Data Provider LAB BLOOD ORDERAB LES Final Result Performing Organization Address [facility]/ZIP Co de Phone Number [facility] [address] [place] [phone] * Comprehensive Metabolic Panel (02/16/2025 1:14 PM EDT) Sodium 141 135 - 145 mmol/L [facility] Potassium 3.7 3.3 - 5.1 mmol/L [facility] Chloride 106 96 - 108 mmol/L [facility] Carbon Dioxide 27 22 - 29 mmol/L [facility] Anion Gap 12 12 - 20 [facility] Urea Nitrogen (BUN) 14 9 - 16 mg/dL [facility] Creatinine, Serum 0.91 0.5 - 1.4 mg/dL [facility] Creatinine Clr Calc Pharmacy 96.0 [facility] Comment:eGFR (calculated fro m the MDRD study equation) and eCrCl(calculated from the Cockcroft-Gault equation) are based ondifferent parameters and may not yield comparable results.If eCrCl result is absurd, please check patient'sheight/weight. Estimated Glomerular Filt Rate >60 [facility] Comment:Chronic Kidney Disea se: Estimated GFR < 60 mL/min/1.92j1Ggrjtu Kidney Disease: Estimated GFR < 15 mL/min/1.73m2 Glucose 87 60 - 115 mg/dL [facility] Calcium 9.1 8.4 - 10.2 mg/dL [facility] Bilirubin, Total 0.4 0.0 - 1.0 mg/dL [facility] Aspartate Amino Transferase 23 5 - 37 U/L [facility] Alanine Aminotransferase 30 0 - 40 U/L [facility] Total Protein 7.1 6.5 - 8.0 g/dL [facility] Albumin Level 4.3 3.5 - 5.0 g/dL [facility] Alkaline Phosphatase 84 39 - 117 U/L [facility] 02/16/2025 1:14 PM EDT 02/16/2025 1:16 PM EDT us Generic External Data Provider LAB BLOOD ORDERAB LES Final Result [facility] [address] [place] [phone] * XR TIBIA FIBULA 2 VW BILATERAL (02/16/2025 12:35 PM EDT) Anatomical Region Laterality Modality Radiographic Vernell ging 02/16/2025 12:3 5 PM EDT Narrative 02/16/2025 1:46 PM EDT [address] [address] XRay Report Signed Patient: Howard Junior MR#: [id number] : 1965 Acct:[id number] Age/Sex: 59 / M ADM Date: 02/16/25 Loc: HO.ED Attending Dr: Ordering Physician: Fredy Villalobos Date of Service: 02/16/25 Procedure(s): XR Tibia Fibula Marty 2V Accession Number(s): [id number] cc: Fredy Villalobos; Marleen Jovel MD Exam: [...] 02/16/25 1344 DD/ 1235 TD/TT: 02/16/25 1335 Software Development Project Manager: Procedure Note Donotuseinterpreter, Image - 02/16/[address] [address] XRay Report Signed Patient: Howard JuniorMR#: [id number] : 1965Acct:[id number] Age/Sex: 59 / MADM Date: 02/16/25 Loc: HO.ED Attending Dr: Ordering Physician: Fredy Villalobos Date of Service: 02/16/25 Procedure(s): XR Tibia Fibula Marty 2V Accession Number(s): [id number] cc: Fredy Villalobos; Marleen Jovel MD Exam: [...] 02/16/25 1344 DD/ 1235 TD/TT: 02/16/25 1335 Software Development Project Manager: [facility] External Provider IMG XR PROCEDURES Final Result * Hepatitis C Antibody with Reflex to HCV, RNA, Quantitative, Real-Time PCR (10/28/2023 10:49 AM EDT) Hepatitis C Antibody Nonreactive Nonreactive [facility] Comment:Antibodies to HCV no t detected; does not exclude early acuteHCV infection. Blood Venous blood specimen / Unknown 10/28/2023 10:49 AM EDT 10/28/2023 2:07 PM EDT Marleen Jovel MD LAB BLOOD ORDERABLES Final Re sult [facility] [address] [place] [phone] * HIV-1/2 Antigen and Antibodies, Fourth Generation, with Reflexes (10/28/2023 10:49 AM EDT) HIV AB/AG Nonreactive Nonreactive [facility] Comment:HIV-1 p24 Ag and/or HIV-1/HIV-2 Ab not detected.A test result that is nonreactive does not exclude thepossibility of exposure to or infection with HIV-1 and/orHIV-2. Nonreactive results in this assay for individualswith prior exposure to HIV-1 and/or HIV-2 may be due toantigen and antibody levels that are below the limit ofdetection of this assay.The [employer] HIV Ag/Ab Combo assay result andsupplemental assay results should be interpreted inconjunction with the patient's clinical presentation,history and other laboratory results. If the results areinconsistent with clinical evidence, additional testing issuggested to confirm the result. Blood Venous blood specimen / Unknown 10/28/2023 10:49 AM EDT 10/28/2023 2:07 PM EDT us Marleen Jovel MD LAB BLOOD ORDERABLES Final Re sult [facility] [address] [place] [phone] * (ABNORMAL) Lipid Panel, Standard (10/28/2023 10:49 AM EDT) Triglycerides 62 <150 mg/dL [facility] Comment:Desirable Triglyceri de: less than 150 mg/dLBorderline High Triglyceride 150-199 mg/dLHigh Triglyceride: 200-499 mg/dLVery High Triglyceride: greater than or equal to 5OO mg/dL Cholesterol 174 <200 mg/dL [facility] Comment:Desirable Cholestero l: less than 200 mg/dLBorderline High Cholesterol: 200-239 mg/dLHigh Cholesterol: greater than 239 mg/dL LDL Cholesterol Calculated 107(H) <100 mg/dL [facility] Comment:Desirable LDL: less than 100 mg/dLNear Optimal/Above Optimal LDL: 110- 129 mg/dLBorderline High LDL: 130-159 mg/dLHigh LDL: 160-189 mg/dLVery High LDL: greater than or equal to 190 mg/dL HDL Cholesterol 55 >40 mg/dL [facility] Comment:Desirable HDL: great er than 40 mg/dL Note: This HDL assay may give artificially low results in patients with liver disease. Blood Venous blood specimen / Unknown 10/28/2023 10:49 AM EDT 10/28/2023 2:07 PM EDT us Marleen Jovel MD LAB BLOOD ORDERABLES Final Re sult [facility] [address] [place] [phone] from Last 3 Months or Most Recently Relevant to Health Maintenance Insurance [facility] [address] [address] [facility] Care Teams Cage Unloader Relationship Specialty Start Date End Date Marleen Jovel MD [address] [place] [phone] PCP - General Family Medicine 10/28/23
--- OUTSIDE RECORDS SUMMARY | 2025-05-19 17:08 | XMS_ITS | Encounter Summary ---
Author Organization [employer] Address [address] [facility] 7[address] [place] [address] Care Team Providers Care Shredding Machine Knife Changer Name Role Phone Marleen Jovel MD Primary Care Provider [phone] Reason for Visit * Reason Comments Med Refill Encounter Details Date Type Department Care Team ([facility] Contact Info) Description 07/31/2024 Refill [facility] [address] [place], [place] [phone] Marleen Jovel MD [address] [place] [address] Social History Tobacco Use Types Packs/Day Years [...] Upcoming Encounters Date Type Department Care Team ([facility] st Contact Info) Description 06/11/2025 3:00 PM EST Office Visit [facility] MED [facility] PED[facility] [address] [place] [address] Marleen Jovel MD [address] [place] [address] documented as of this encounter Visit Diagnoses Not on filedocumented in this encounter Additional Health Concerns Assessment Noted Time PHQ-9 Depression Total Score: 0 10/28/19 9:20 AM EDT documented as of this encounter Care Teams Shredding Machine Knife Changer Relationship Specialty Start Date End Date Marleen Jovel MD [address] [place] [address] PCP - General Family Medicine 10/28/23 documented as of this encounter
--- OUTSIDE RECORDS SUMMARY | 2025-05-19 17:08 | XMS_ITS | Encounter Summary ---
Author Organization [employer] Address [address] [place] [address] Care Team Providers Care Steel Engraver Name Role Phone Marleen Jovel MD Primary Care Provider [phone] Encounter Details Date Type Department Care Team ([facility] st Contact Info) Description 04/28/2025 Results Follow-Up [facility] MED & PEDS [address] [place], [place] [phone] Nhung Bearden MD [address] [place] [address] Urinalysis w/reflex microscopic, MR CAD, MR Prostate w and w/o Contrast Social History Tobacco Use Types Packs/Day Years [...] as of this encounter Miscellaneous Notes * Result Encounter Note - Nhung Bearden MD - 05/14/2025 1:58 PM EST FYI * Result Encounter Note - Nhung Bearden MD - 05/14/2025 1:58 PM EST FYI documented in this encounter Plan of Treatment Upcoming Encounters Date Type Department Care Team (Late st Contact Info) Description 06/11/2025 3:00 PM EST Office Visit [facility] MED & PEDS [address] [place] [address] Marleen Jovel MD [address] [place] [address] documented as of this encounter Visit Diagnoses Not on filedocumented in this encounter Additional Health Concerns Assessment Noted Time PHQ-9 Depression Total Score: 8 03/25/20 25 10:21 AM EDT documented as of this encounter Care Teams Steel Engraver Relationship Specialty Start Date End Date Marleen Jovel MD [address] [place] [address] PCP - General Family Medicine 10/28/23 documented as of this encounter
== END 2025-05-19 15:07 | disposition home or self-care (01) ==
LOC: HO.HUSH 14:09
PROVIDERS: PCP Family Medicine; Visit Provider Urology
DX: C61 Malignant neoplasm of prostate (principal); Z19.1 Hormone sensitive malignancy status
CPT/HCPCS: 99214

== ENCOUNTER → 2025-05-19 14:09 | Outpatient (BNVA) | payer OTHER, SELFPAY | PROVIDERS: PCP Family Medicine; Visit Provider Urology | DX: C61 Malignant neoplasm of prostate (principal); R35.1 Nocturia; Z19.1 Hormone sensitive malignancy status | CPT/HCPCS: 51798; 99212 ==

== ENCOUNTER 2025-06-11 15:52 | Outpatient (REF) | payer OTHER, SELFPAY ==
--- OUTSIDE RECORDS SUMMARY | 2025-06-11 15:00 | XMS_ITS | Encounter Summary ---
Author Organization [employer] Address [address] [facility] [address] [place] [address] Care Team Providers Care Can Marker Name Role Phone Marleen Jovel MD Primary Care Provider [phone] Encounter Details Date Type Department Care Team ([facility] st Contact Info) Description 06/11/2025 3:00 PM EST Office Visit [facility] & PEDS [address] [place], [place] [phone] Marleen Jovel MD [address] [place] [address] Upper respiratory tract infection, unspecified type (Primary Dx); Encounter for immunization; Lower extremity edema; Acute cough Social History Tobacco Use Types Packs/Day Years [...] Sign Reading Time Taken Comments Blood Pressure 126/82 06/11/2025 2:48 PM EST Pulse 78 06/11/2025 2:48 PM EST Temperature 37.3 C (99.1 F) 06/11/2025 2:48 PM EST Respiratory Rate 20 06/11/2025 2:48 PM EST Oxygen Saturation 98% 06/11/2025 2:48 PM EST Inhaled Oxygen Concentration - - Weight 101 kg (222 lb 3.2 oz) 06/11/2025 2:48 PM EST Height 170.2 cm (5' 7 ) 06/11/2025 2:48 PM EST Body Mass Index 34.8 06/11/2025 2:48 PM EST documented in this encounter Plan of Treatment Not on file documented as of this encounter Procedures Procedure Name Priority Date/Time Associated Diagnosis Comments POCT COVID-19 AG [place] ID NOW Routine 06/11/2025 3:28 PM EST Upper respiratory tract infection, unspecified type POCT INFLUENZA B Routine 06/11/2025 3:27 PM EST Upper respiratory tract infection, unspecified type POCT INFLUENZA A Routine 06/11/2025 3:27 PM EST Upper respiratory tract infection, unspecified type documented in this encounter Results * POCT Rapid Covid-19 [place] ID NOW (06/11/2025 3:28 PM EST) [facility] Coronavirus Antigen PCR Negative Negative, Indeterminate, None Detected, Trace, 3+, Specimen unsatisfactory for evaluation, Weakly Positive, 1+, 2+ QC Media Lot # [id number] Lot# Expiration Date [id number] Swab 06/11/2025 3:28 PM EST Result [facility] Marleen Jovel MD POINT OF CARE TEST ENTER/EDIT ORDERABLES Final Result * POCT Rapid Influenza B OSOM (06/11/2025 3:27 PM EST) [facility] Rapid Influenza B Ag Negative Negative, Indeterminate QC Media Lot # [id number] Lot# Expiration Date , Swab 06/11/2025 3:27 PM EST Result [facility] Marleen Jovel MD POINT OF CARE TEST ENTER/EDIT ORDERABLES Final Result * POCT Rapid Influenza A OSOM (06/11/2025 3:27 PM EST) [facility] Rapid Influenza A Ag Negative Negative, Indeterminate QC Media Lot # [id number] Lot# Expiration Date , Swab Nasopharyngeal structure / Unknown 06/11/2025 3:27 PM EST Result [facility] Marleen Jovel MD POINT OF CARE TEST ENTER/EDIT ORDERABLES Final Result documented in this encounter Visit Diagnoses Diagnosis Upper respiratory tract infection, unspecified type- Primary Encounter for immunization Lower extremity edema Edema Acute cough documented in this encounter Additional Health Concerns Assessment Noted Time PHQ-9 Depression Total Score: 8 03/25/20 25 10:21 AM EDT documented as of this encounter Care Teams Can Marker Relationship Specialty Start Date End Date Marleen Jovel MD [address] [place] [phone] PCP - General Family Medicine 5/6/24 documented as of this encounter
--- OUTSIDE RECORDS SUMMARY | 2025-06-11 16:43 | XMS_ITS | Encounter Summary ---
Author Organization [employer] Address [address] [facility] [address] [place] [address] Care Team Providers Care Social Media Project Manager Name Role Phone Marleen Jovel MD Primary Care Provider [phone] Encounter Details Date Type Department Care Team (Latest Contact Info) Description 06/11/2025 Travel Social History Tobacco Use Types Packs/Day [...] documented as of this encounter Care Teams Social Media Project Manager Relationship Specialty Start Date End Date Marleen Jovel MD [address] [place] [address] PCP - General Family Medicine 10/28/23 documented as of this encounter
--- OUTSIDE RECORDS SUMMARY | 2025-06-11 16:43 | XMS_ITS | Encounter Summary ---
Author Organization [employer] Address [address] [facility] [address] [place] [address] Care Team Providers Care Bdc Manager Name Role Phone Marleen Jovel MD Primary Care Provider [phone] Encounter Details Date Type Department Care Team (Late st Contact Info) Description 10/05/2024 Orders Only [facility] MED & PEDS [address] [place] [address] Provider, MD Wang Social History Tobacco Use [...] documented as of this encounter Care Teams Bdc Manager Relationship Specialty Start Date End Date Marleen Jovel MD [address] [place] [phone] PCP - General Family Medicine 10/28/23 documented as of this encounter
--- OUTSIDE RECORDS SUMMARY | 2025-06-11 16:43 | XMS_ITS | Clinical Summary ---
Author Organization [employer] Address [address] [facility] [address] [place] [address] Care Team Providers Care Battery Inspector Name Role Phone Marleen Jovel MD [...] or shortness of breath. 18 g 5 02/17/20 25 026 Active fluticasone furoate (Arnuity Ellipta) 100 MCG/ACT inhalerIndications :Rhinosinusitis Inhale 1 puff Once per day. Rinse mouth with water after use to reduce aftertaste and incidence of candidiasis. Do not swallow. 1 each 5 02/17/20 25 026 Active Spacer/Aero-Holdin g Chambers (OptiChamber Torri) misc 1 each every 4 (four) hours if needed (asthma). 1 each 02/17/20 25 Active triamcinolone (Kenalog) 0.1 % ointmentIndication s:Venous stasis dermatitis Apply topically 2 times daily. 30 g 03/25/20 25 Active furosemide (Lasix) 20 MG tabletIndications: Lower extremity edema Take 1 tablet (20 mg) by mouth Once per day. 3 tablet 04/20/20 25 026 Active triamcinolone (Kenalog) 0.1 % ointmentIndication s:Venous stasis dermatitis Apply topically 2 times daily. 30 g 04/27/20 25 Active dutasteride (Avodart) 0.5 MG capsule Take 1 capsule by mouth Once per day. 03/25/20 25 Active hydrocortisone (Anusol-HC) 2.5 % rectal creamIndications:G rade III hemorrhoids Insert into the rectum 2 times daily. 90 g 1 05/10/20 25 Active senna-docusate sodium (Senokot-S) 8.6-50 MG tabletIndications: Grade III hemorrhoids Take 1 tablet by mouth Once per day. 30 tablet 11 05/10/20 25 026 Active polyethylene glycol, PEG, 3350 (MiraLax) 17 GM/SCOOP powderIndications: Grade III hemorrhoids Take 17 g by mouth Once per day. 527 g 2 05/10/20 25 Active olmesartan-hydroCH LOROthiazide (Benicar HCT) 20-12.5 MG tablet Take 1 tablet by mouth Once per day. 90 tablet 1 05/10/20 25 Active furosemide (Lasix) 40 MG tabletIndications: Lower extremity edema Take 1 tablet (40 mg) by mouth Once per day. 7 tablet 06/11/20 25 Active guaiFENesin-dextro methorphan (Robitussin DM) 100-10 MG/5ML syrupIndications:A cute cough Take 10 mL by mouth every 6 (six) hours if needed for cough. 118 mL 06/11/20 25 Active docusate sodium (Colace) 100 MG capsuleIndications :Grade III hemorrhoids Take 1 capsule (100 mg) by mouth 2 times daily for 10 days. 20 capsule 05/10/20 025 Active Problems Problem Noted Date Diagnosed [...] referral in the system. Will send to [facility]. Please attach media from ECG done in [...] organization. Date Type Department Care Team Description 06/11/2025 3:00 PM EST Office Visit [facility] [address] [place] [address] Marleen Jovel MD Upper respiratory tract infection, unspecified type (Primary Dx); Encounter for immunization; Lower extremity edema; Acute cough 06/11/2025 Travel 05/10/2025 10:00 AM EST Office Visit [facility] [address] [place] [address] Marleen Jovel MD Elevated serum creatinine (Primary Dx); Prostate cancer (CMS/HCC) (HCC); Essential hypertension; Venous stasis dermatitis; Encounter for immunization; Colon cancer screening; Umbilical hernia without obstruction and without gangrene; Grade III hemorrhoids 05/10/2025 Travel 05/03/2025 Patient Outreach [address] [address] Marleen Jovel MD Pre-visit Planning (SDOH screening was completed on 03/25/2025) 04/28/2025 Results Follow-Up [facility] [address] [place] [address] Nhung Bearden MD Urinalysis w/reflex microscopic, MR CAD, MR Prostate w and w/o Contrast 04/27/2025 9:30 AM EST Office Visit [facility] [address] [place] [address] Nhung Bearden MD Venous stasis dermatitis (Primary Dx); Gross hematuria 04/27/2025 Orders Only [facility] [address] [place] [address] Nhung Bearden MD 04/27/2025 Telephone [facility] [address] [place] [address] Violeta Ta RN 04/27/2025 Travel 04/20/2025 1:00 PM EDT Office Visit [facility] [address] [address] Trena Billings MD Cellulitis of lower extremity, unspecified laterality; Lower extremity edema 04/20/2025 Travel 04/01/2025 Telephone [facility] [address] [place] [address] Marleen Jovel MD 03/31/2025 Orders Only [facility] External Provider, [facility] 03/25/2025 10:00 AM EDT Office Visit [facility] [address] [place] [address] Nhung Bearden MD Venous stasis dermatitis (Primary Dx); Essential hypertension; SOB (shortness of breath); Diastolic dysfunction; Other depression 03/25/2025 Travel 03/24/2025 Telephone [facility] [address] [place] [address] Marleen Jovel MD Chart Prep 03/22/2025 Orders Only [facility] [address] [place] [address] Provider, MD Wang from Last 3 Months Immunizations Immunization Administration Dates Next Due Hep B, adult 12/18/2023,11/20/2023 Influenza Injectable Quadriv alant Preservative Free IIV4 MDCK 04/01/2018 Influenza, IIV3, injectable 05/01/2024,,04/05/2015 Influenza, seasonal, injecta ble, preservative free 05/10/2025 Tdap 06/11/2025 Zoster, Recombinant 11/26/2024,09/17/2024 Family History Medical History [...] Mass Index 34.8 06/11/2025 2:48 PM EST Plan of Treatment Health Maintenance Due Date Last Done Comments CT Colonography 1965 Colonoscopy 1965 Colorectal Cancer Screening 1965 FIT DNA/Cologuard 1965 FIT 1965 FOBT 1965 Sigmoidoscopy 1965 Pneumococcal Vaccine: 50+ Years (1 of 2 - PCV) 1983 RSV Patients and Patients Aged 60 years or older (1 - Risk 50-74 years 1-dose series) 2014 Hepatitis B Vaccines (3 of 3 - 19+ 3-dose series) 05/22/2024 12/18/2023, 11/20/2023 COVID-19 Vaccine (3 - season) 2025 01/07/2021, 12/17/2020 Alcohol/Substance Use Screening 03/25/2026 03/25/2025 Depression Screening 03/25/2026 03/25/2025, 03/25/20 Disability Screening 03/25/2026 03/25/2025 SDOH Screening 03/25/2026 03/25/2025 Tobacco Screening 05/10/2026 05/10/2025 Lipid Panel 10/27/2028 10/28/2023 DTaP/Tdap/Td Vaccines (2 - Td or Tdap) 06/11/2035 06/11/2025 HIV Screening Completed 10/28/2023 Hepatitis C Screening [...] EST Upper respiratory tract infection, unspecified type MR PROSTATE W AND WO CONTRAST Routine 05/14/2025 9:19 AM EST MR CAD Routine 05/14/2025 9:19 AM EST URINALYSIS WITH REFLEX MICROSCOPIC Routine 04/27/2025 10:27 AM EST FL BARIUM SWALLOW MODIFIED Routine 03/31/2025 2:22 PM EDT ECG 12-LEAD Routine 03/21/2025 9:[address] CHEST ANGIO W AND WO IV CONTRAST Routine 03/21/2025 8:53 AM EDT HEPATITIS C AB W/REFL TO [...] Recently Relevant to Health Maintenance Results * POCT Rapid Covid-19 [place] ID NOW (06/11/2025 3:28 PM EST) Coronavirus Antigen PCR Negative Negative, Indeterminate, None Detected, Trace, 3+, Specimen unsatisfactory for evaluation, Weakly Positive, 1+, 2+ QC Media Lot # [id number] Lot# Expiration Date [id number] Swab 06/11/2025 3:28 PM EST Marleen Jovel MD POINT OF CARE TEST ENTER/EDIT ORDERABLES Final Result * POCT Rapid Influenza B OSOM (06/11/2025 3:27 PM EST) Rapid Influenza B Ag Negative Negative, Indeterminate QC Media Lot # [id number] Lot# Expiration Date Swab 06/11/2025 3:27 PM EST Marleen Jovel MD POINT OF CARE TEST ENTER/EDIT ORDERABLES Final Result * POCT Rapid Influenza A OSOM (06/11/2025 3:27 PM EST) Rapid Influenza A Ag Negative Negative, Indeterminate QC Media Lot # [id number] Lot# Expiration Date Swab Nasopharyngeal structure / Unknown 06/11/2025 3:27 PM EST Marleen Jovel MD POINT OF CARE TEST ENTER/EDIT ORDERABLES Final Result * MR AKINS (05/14/2025 9:19 AM EST) Anatomical Region Laterality Modality Magnetic Resonan ce 05/14/2025 9:19 AM EST Narrative 05/14/2025 10:41 AM EST [place] [address] Magnetic Resonance Report Signed Patient: Howard Junior MR#: [id number] : 1965 Acct:[id number] Age/Sex: 59 / M ADM Date: 05/14/25 Loc: HO.MRI Attending Dr: Aravind Wilkins MD Ordering Physician: Zaki Hraris MD Date of Service: 05/14/25 Procedure(s): MR AKINS Accession Number(s): [id number] cc: Zaki Harris MD; Nhung Bearden MD [...] Biopsy: Positive biopsy on 03/09/2025 with a Montrose score of 3+3 = 6. FINDINGS: Prostate [...] cancer is highly likely to be present) [employer]. MR Prostate Imaging Reporting and Data System version 2.1. http://www.acr.org/Quality-Safety/Resources/PIRADS/ Electronically signed by: Hussain Aguiar MD 05/14/2025 10:39 AM EST RP Dictated By: Hussain Aguiar MD Signed By: <Electronically signed by Hussain Aguiar MD in OV> 05/14/25 1039 DD/ 8 TD/TT: 05/14/2550 Fruit Shipper: Procedure Note Donotuseinterpreter, Image - 05/14/2025 [place] [address] Magnetic Resonance Report Signed Patient: Howard Junior#: [id number] : 1965Acct:[id number] Age/Sex: 59 / MADM Date: 05/14/25 Loc: .MRI Attending Dr: Aravind Wilkins MD Ordering Physician: Zaki Harris MD Date of Service: 05/14/25 Procedure(s): MR CAD Accession Number(s): [id number] cc: Zaki Harris MD; Nhung Bearden MD [...] Biopsy: Positive biopsy on 03/09/2025 with a Montrose score of 3+3 = 6. FINDINGS: Prostate [...] cancer is highly likely to be present) [employer]. MR Prostate Imaging Reporting and Data System version 2.1. http://www.acr.org/Quality-Safety/Resources/PIRADS/ Electronically signed by: Hussain Aguiar MD 05/14/2025 10:39 AM [facility] Dictated By: Hussain Aguiar MD Signed By: <Electronically signed by Hussain Aguiar MD in OV> 05/14/25 1039 DD/ 8 TD/TT: 05/14/25 0950 Fruit Shipper: [facility] External Provider IMG MRI PROCEDURES Final Result * MR Prostate w and w/o Contrast (05/14/2025 9:19 AM EST) Anatomical Region Laterality Modality Magnetic Resonan ce 05/14/2025 9:19 AM EST Narrative 05/14/2025 10:41 AM EST [address] [address] Magnetic Resonance Report Signed Patient: Howard Junior MR#: [id number] : 1965 Acct:[id number] Age/Sex: 59 / M ADM Date: 05/14/25 Loc: HO.MRI Attending Dr: Aravind Wilkins MD Ordering Physician: Aravind Wilkins MD Date of Service: 05/14/25 Procedure(s): MR Prostate wo/w con Accession Number(s): [id number] cc: Nhung Bearden MD; Aravind Wilkins MD [...] Biopsy: Positive biopsy on 03/09/2025 with a Montrose score of 3+3 = 6. FINDINGS: Prostate [...] cancer is highly likely to be present) [employer]. MR Prostate Imaging Reporting and Data System version 2.1. http://www.acr.org/Quality-Safety/Resources/PIRADS/ Electronically signed by: Hussain Aguiar MD 05/14/2025 10:39 AM EST Dictated By: Hussain Aguiar MD Signed By: <Electronically signed by Hussain Aguiar MD in OV> 05/14/25 1039 DD/ 0919 TD/TT: 05/14/25 0950 Fruit Shipper: Procedure Note Donotuseinterpreter, Image - 11/21/[address] [address] Magnetic Resonance Report Signed Patient: Howard Junior#: [id number] : 1965Acct:[id number] Age/Sex: 59 / MADM Date: 05/14/25 Loc: HO.MRI Attending Dr: Aravind Wilkins MD Ordering Physician: Aravind Wilkins MD Date of Service: 05/14/25 Procedure(s): MR Prostate wo/w con Accession Number(s): [id number] cc: Nhung Bearden MD; Aravind Wilkins MD [...] Biopsy: Positive biopsy on 03/09/2025 with a Montrose score of 3+3 = 6. FINDINGS: Prostate [...] cancer is highly likely to be present) [employer]. MR Prostate Imaging Reporting and Data System version 2.1. http://www.acr.org/Quality-Safety/Resources/PIRADS/ Electronically signed by: Hussain Aguiar MD 05/14/2025 10:39 AM EST Dictated By: Hussain Aguiar MD Signed By: <Electronically signed by Hussain Aguiar MD in OV> 05/14/25 1039 DD/ 0919 TD/TT: 05/14/25 0950 Fruit Shipper: [facility] External Provider IMG MRI PROCEDURES Final Result * Urinalysis w/reflex microscopic (04/27/2025 10:27 AM EST) Color Urine Yellow [facility] Appearance Urine Clear [facility] PH 6.5 5.0 - 9.0 [facility] Glucose Urine UA Negative Negative mg/dL [facility] Urine Blood Negative Negative [facility] Specific [place] - Urine 1.015 1.005 - 1.025 [facility] Urine Protein Negative Neg-Trace mg/dL [facility] Urine Ketones Negative Negative mg/dL [facility] Nitrite Urine Negative Negative [facility] Leukocyte Esterase Urine Negative Negative [facility] 04/27/2025 10:2 7 AM EST 04/27/2025 2:08 PM EST Narrative [facility] - 04/27/2025 2:21 PM EST [id number], Clean Catch Nhung Bearden MD LAB URINE ORDERABLES Final Result Performing Organization Address City/State/[facility] Co de Phone Number [facility] [address] [place] [phone] * FL BARIUM SWALLOW MODIFIED (03/31/2025 2:22 PM EDT) Anatomical Region Laterality Modality Head, Neck Radiographic Vernell ging 03/31/2025 2:22 PM EDT Narrative 03/31/2025 3:18 PM EDT [address] [address] Fluoroscopy Report Signed Patient: Howard Junior MR#: [id number] : 1965 Acct:[id number] Age/Sex: 59 / M ADM Date: 03/31/25 Loc: HO.JAKUBAY Attending Dr: Zonia Gongora MD Ordering Physician: Zonia Gongora MD Date of Service: 03/31/25 Procedure(s): FL Modified Barium Swallow Accession Number(s): [id number] cc: Marleen Jovel MD; Zonia Gongora MD [...] 03/31/25 1515 DD/ 1422 TD/TT: 03/31/25 1445 Fruit Shipper: Procedure Note Donotuseinterpreter, Image - 03/31/[address] [address] Fluoroscopy Report Signed Patient: Howard JuniorMR#: [id number] : 1965Acct:[id number] Age/Sex: 59 / MADM Date: 03/31/25 Loc: HO.XRAY Attending Dr: Zonia Gongora MD Ordering Physician: Zonia Gongora MD Date of Service: 03/31/25 Procedure(s): FL Modified Barium Swallow Accession Number(s): [id number] cc: Marleen Jovel MD; Zonia Gongora MD [...] 03/31/25 1515 DD/ 1422 TD/TT: 03/31/25 1445 Fruit Shipper: [facility] External Provider IMG FLU OROSCOPY PROCEDURES Final Result * ECG 12 lead (03/21/2025 9:02 AM EDT) Historical Provider ECG ORDERABLES Final Res ult * CT CHEST ANGIO W AND WO IV CONTRAST (03/21/2025 8:53 AM EDT) Anatomical Region Laterality Modality Computed Tomogra phy Historical Provider IMG CT PROCEDURES Final R esult * Hepatitis C Antibody with Reflex to HCV, RNA, Quantitative, Real-Time PCR (10/28/2023 10:49 AM EDT) Hepatitis C Antibody Nonreactive Nonreactive [facility] Comment:Antibodies to HCV no t detected; does not exclude early acuteHCV infection. Blood Venous blood specimen / Unknown 10/28/2023 10:49 AM EDT 10/28/2023 2:07 PM EDT Marleen Jovel MD LAB BLOOD ORDERABLES Final Re sult [facility] [address] [place] [address] [phone] * HIV-1/2 Antigen and Antibodies, Fourth Generation, with Reflexes (10/28/2023 10:49 AM EDT) HIV AB/AG Nonreactive Nonreactive [facility] Comment:HIV-1 p24 Ag and/or HIV-1/HIV-2 Ab not detected.A test result that is nonreactive does not exclude thepossibility of exposure to or infection with HIV-1 and/orHIV-2. Nonreactive results in this assay for individualswith prior exposure to HIV-1 and/or HIV-2 may be due toantigen and antibody levels that are below the limit ofdetection of this assay.The [employer] HIV Ag/Ab Combo assay result andsupplemental assay results should be interpreted inconjunction with the patient's clinical presentation,history and other laboratory results. If the results areinconsistent with clinical evidence, additional testing issuggested to confirm the result. Blood Venous blood specimen / Unknown 10/28/2023 10:49 AM EDT 10/28/2023 2:07 PM EDT us Marleen Jovel MD LAB BLOOD ORDERABLES Final Re sult [facility] [address] [place], [place] [phone] * (ABNORMAL) Lipid Panel, Standard (10/28/2023 10:49 AM EDT) Triglycerides 62 <150 mg/dL [facility] Comment:Desirable Triglyceri de: less than 150 mg/dLBorderline High Triglyceride 150-199 mg/dLHigh Triglyceride: 200-499 mg/dLVery High Triglyceride: greater than or equal to 5OO mg/dL Cholesterol 174 <200 mg/dL [facility] Comment:Desirable Cholestero l: less than 200 mg/dLBorderline High Cholesterol: 200-239 mg/dLHigh Cholesterol: greater than 239 mg/dL LDL Cholesterol Calculated 107(H) <100 mg/dL [facility] Comment:Desirable LDL: less than 100 [...] MD LAB BLOOD ORDERABLES Final Re sult [facility] [address] [place] [phone] [phone] from Last 3 Months or Most Recently Relevant to Health Maintenance Insurance [facility] Care Teams Battery Inspector Relationship Specialty Start Date End Date Marleen Jovel MD [address] [place] [phone] PCP - General Family Medicine 10/28/23
--- OUTSIDE RECORDS SUMMARY | 2025-06-11 16:43 | XMS_ITS | Clinical Summary ---
Author Organization [facility] Address [address] [place] [address] Phone Care Team Providers Care Pediatric Genetic Counselor Name Role Phone Marleen Jovel MD Primary Care Provider [phone] Allergies No known active allergies Medications albuterol [...] - 03/21/2025 9:42 PM EDT Emergency [facility] Emergency [address] [place] [address] Verónica Gross MD Chest pain, unspecified type (Primary Dx); Leg swelling; Bronchitis Discharge Disposition: Home or Self Care from [...] Orientation Straight 10/02/2024 7: 49 PM EDT Last Filed Vital Signs Vital Sign Reading [...] 12/18/2023, 11/20/2023 Depression Screening 06/24/2024 COVID-19 Vaccine ( season) 2025 01/07/2021, 12/17/2020 Influenza Vaccine (#1) [...] BLOOD COUNT STAT 03/21/2025 4:47 PM EDT from Last 3 Months Results * ECG-Annotated (03/22/2025) us Provider Onbase ECG ORDERABLES Final Result * Troponin I High Sensitivity (03/21/2025 6:31 PM EDT) Only the most recent of2 resultswithin the time period is included. High Sensitivity Troponin I 9 <=79 ng/L LAB CHEMISTRY METHOD 03/21/2025 7:08 PM EDT [facility] Blood Venous blood specimen / Unknown Venipuncture / Unknown 03/21/2025 6:31 PM EDT 03/21/2025 6:41 PM EDT Narrative [facility] - 03/21/2025 7:08 PM EDT High levels of biotin in samples may falsely decrease hsTroponin values. Use caution when interpreting hsTroponin results in patients taking biotin who exhibit renal impairment (eGFR <60) or in patients taking more than 20 mg/day of biotin. Verónica Gross MD LAB BLOOD ORDERABLES Final Resul t [facility] [address] [place] [address], * CT Angio Chest wo and/or w [...] Postprocessing. Comparison: DX/SR - XR CHEST 2 - 10/02/24 19:20 EDT Findings: Cardiomegaly. No [...] Postprocessing. Comparison: DX/SR - XR CHEST 2 - 10/02/24 19:20 EDT Findings: Cardiomegaly. No [...] MD on 03/21/2025 18:34:25 Verónica Gross MD IM CT PROCEDURES Final Result * 12-Lead ECG (03/21/2025 5:56 PM EDT) Ventricular Rate ECG 70 BPM GEMUSE Atrial Rate 70 BPM GEMUSE P-R Interval 140 ms GEMUSE QRS Duration 88 ms GEMUSE Q-T Interval 414 ms GEMUSE QTc 447 ms GEMUSE P Wave [place] 32 degrees GEMUSE R [place] -23 degrees GEMUSE T [place] 0 degrees GEMUSE ECG Interpretation Normal sinus [...] Signed Date: 03/21/2025 21:08 ET Workstation ID: [id number] Transcribed By: Self Edit Transcribed Date: 03/21/2025 [...] MILI SARAH Reviewed and Electronically Signed By: MIIL SARAH Signed Date: 03/21/2025 21:08 ET Workstation ID: [id number] Transcribed By: Self Edit Transcribed Date: 03/21/2025 21:07 ET us Verónica Gross MD CV VASCULAR PROCEDURES Final Res ult * (ABNORMAL) CBC (03/21/2025 4:47 PM EDT) WBC 7.6 4.8 - 10.8 K/mcL LAB HEMETOLOGY METHOD 03/21/2025 5:10 PM EDT [facility] RBC 4.40(L) 4.50 - 5.50 M/mcL LAB HEMETOLOGY METHOD 03/21/2025 5:10 PM EDT [facility] Hemoglobin 13.8 13.5 - 17.5 g/dL LAB HEMETOLOGY METHOD 03/21/2025 5:10 PM EDT [facility] Hematocrit 42.8 42.0 - 54.0 % LAB HEMETOLOGY METHOD 03/21/2025 5:10 PM EDT [facility] MCV 96.4 79.0 - 98.0 FL LAB HEMETOLOGY METHOD 03/21/2025 5:10 PM EDT [facility] MCH 31.1 27.0 - 32.0 pcg LAB HEMETOLOGY METHOD 03/21/2025 5:10 PM EDT [facility] MCHC 32.2 32.0 - 37.0 g/dL LAB HEMETOLOGY METHOD 03/21/2025 5:10 PM EDT [facility] RDW 12.8 11.0 - 15.0 % LAB HEMETOLOGY METHOD 03/21/2025 5:10 PM EDT [facility] Platelets 211 130 - 400 K/mcL LAB HEMETOLOGY METHOD 03/21/2025 5:10 PM EDT [facility] MPV 10.3 7.0 - 11.0 FL LAB HEMETOLOGY METHOD 03/21/2025 5:10 PM EDT [facility] NRBC 0.0 <1.0 % LAB HEMETOLOGY METHOD 03/21/2025 5:10 PM EDT [facility] NRBC Absolute 0.00 <0.10 K/mcL LAB HEMETOLOGY METHOD 03/21/2025 5:10 PM EDT [facility] Blood Venous blood specimen / Unknown Venipuncture / Unknown 03/21/2025 4:47 PM EDT 03/21/2025 5:05 PM EDT us Verónica Gross MD LAB BLOOD ORDERABLES Final Resul t [facility] [address] [place] [address], * (ABNORMAL) Basic Metabolic Panel (BMP) (03/21/2025 4:47 PM EDT) Sodium 140 133 - 145 mmol/L LAB CHEMISTRY METHOD 03/21/2025 5:29 PM EDT [facility] Potassium 3.7 3.5 - 5.5 mmol/L LAB CHEMISTRY METHOD 03/21/2025 5:29 PM EDT [facility] Chloride 104 96 - 110 mmol/L LAB CHEMISTRY METHOD 03/21/2025 5:29 PM EDT [facility] CO2 29 21 - 32 mmol/L LAB CHEMISTRY METHOD 03/21/2025 5:29 PM EDT [facility] Anion Gap 7 3 - 11 LAB CHEMISTRY METHOD 03/21/2025 5:29 PM EDT [facility] Glucose 100 70 - 100 mg/dL LAB CHEMISTRY METHOD 03/21/2025 5:29 PM EDT [facility] BUN 26(H) 5 - 25 mg/dL LAB CHEMISTRY METHOD 03/21/2025 5:29 PM EDT [facility] Creatinine 1.21 0.70 - 1.30 mg/dL LAB CHEMISTRY METHOD 03/21/2025 5:29 PM EDT [facility] eGFR 69 >=60 mL/min/1. 73m2 LAB CHEMISTRY METHOD 03/21/2025 5:29 PM EDT [facility] Comment:Calculation based on the Chronic Kidney Disease Epidemiology Collaboration (CKD-EPI) equation refit without adjustment for race. BUN/Creatinine Ratio 21.5 LAB CHEMISTRY METHOD 03/21/2025 5:29 PM EDT [facility] Calcium 8.8 8.5 - 10.5 mg/dL LAB CHEMISTRY METHOD 03/21/2025 5:29 PM EDT [facility] Blood Venous blood specimen / Unknown Venipuncture / Unknown 03/21/2025 4:47 PM EDT 03/21/2025 5:05 PM EDT us Verónica Gross MD LAB BLOOD ORDERABLES Final Resul t [facility] [address] [place] [address], [place] [phone] from Last 3 Months Insurance [employer] [facility] Advance Directives * Full Code - Confirmed [...] currently active code status orders. Care Teams Pediatric Genetic Counselor Relationship Specialty Start Date End Date Marleen Jovel MD [address] [place] [phone] PCP - General Family Medicine 10/02/24
--- OUTSIDE RECORDS SUMMARY | 2025-06-11 16:43 | XMS_ITS | Encounter Summary ---
Author Organization [email or web address] Address [address] [facility] [address] [place] [address] Care Team Providers Care Photographic Hand Developer Name Role Phone Marleen Jovel MD Primary Care Provider [phone] Encounter Details Date Type Department Care Team (Late st Contact Info) Description 03/22/2025 Orders Only [facility] [address] [place] [address] Provider, MD Wang Social History Tobacco Use [...] documented as of this encounter Care Teams Photographic Hand Developer Relationship Specialty Start Date End Date Marleen Jovel MD [address] [place] [address] PCP - General Family Medicine 10/28/23 documented as of this encounter
--- OUTSIDE RECORDS SUMMARY | 2025-06-11 16:43 | XMS_ITS | Encounter Summary ---
Author Organization [employer] Address [address] [facility] [address] [place] [address] Care Team Providers Care Private Client Advisor Name Role Phone Marleen Jovel MD Primary Care Provider [phone] Reason for Visit * Reason Comments Med Refill Encounter Details Date Type Department Care Team ([facility] Contact Info) Description 07/31/[address] [facility] MED [facility] PEDS [address] [place], [place] [id number] Marleen Jovel MD [address] [place] [address] Social History Tobacco Use Types Packs/Day Years [...] documented as of this encounter Care Teams Private Client Advisor Relationship Specialty Start Date End Date Marleen Jovel MD [address] [place] [id number] PCP - General Family Medicine 10/28/23 documented as of this encounter
--- OUTSIDE RECORDS SUMMARY | 2025-06-11 16:43 | XMS_ITS | Encounter Summary ---
Author Organization [employer] Address [address] [facility] [address] [place] [address] Care Team Providers Care Seam Taper Machine Name Role Phone Marleen Jovel MD Primary Care Provider [phone] Encounter Details Date Type Department Care Team ([facility] st Contact Info) Description 04/28/2025 Results Follow-Up [facility] MED & PEDS [address] [place], [place] [phone] Nhung Bearden MD [address] [place] [address] Urinalysis w/reflex microscopic, MR CAD, MR Prostate [...] documented as of this encounter Care Teams Seam Taper Machine Relationship Specialty Start Date End Date Marleen Jovel MD [address] [place] [id number] PCP - General Family Medicine 10/28/23 documented as of this encounter
[2025-06-11 19:20] LABS: Anion Gap 8 (12-20); Blood Urea Nitrogen 21 mg/dL (9-16); Calcium 8.5 mg/dL (8.4-10.2); Carbon Dioxide 28 mmol/L (22-29); Chloride 111 mmol/L (96-108); Estimated Glomerular Filt Rate > 60; Potassium 4.1 mmol/L (3.3-5.1); Sodium 143 mmol/L (135-145)
[2025-06-14 05:00] LABS: HBS Num1 0.41 mIU/mL (0-7.99); ~Hepatitis B Surface Antibody NONREACTIVE (Nonreactive)
== END 2025-06-11 15:53 | disposition home or self-care (01) ==
LOC: HO.CHCLDS 15:52
PROVIDERS: PCP Family Medicine; Visit Provider Family Medicine
DX: Z11.59 Encounter for screening for other viral diseases (principal); R79.89 Other specified abnormal findings of blood chemistry
CPT/HCPCS: 36415; 80048; 86706

== ENCOUNTER 2025-06-22 15:15 | Outpatient (AMB) | payer OTHER, SELFPAY ==
--- NOTE | 2025-06-22 15:30 | MHC.OFFVIS ---
Vital Signs 06/22/25 15:47 Height 5 ft 7 in Weight 220 lb BMI 34.5 BP 124/70 Blood Pressure Location Rt brachial Position Sitting Pulse 81 Intake Visit Reasons: ? recurrent umbilical hernia Intake Note: Patient presents for an assessment for possible recurrent umbilical hernia. Pt c/o; reports pain in the navel area, reports he had an episode of constipation for about 3 days. Choir Teacher Required: Yes Choir Teacher Language: Airconditioning Engineer Services: Choir Teacher Present (Chacha) Choir Teacher Name: [email or web address] Information Interpreted: non-clinical & clinical Accompanied by: Self / Same As Patient Allergies No Known Allergies Allergy (Verified 06/22/25 15:48) Medication List - Last Reconciled 06/22/25 by Brett Manzo MD albuterol sulfate 90 mcg/actuation 2 puffs inhalation Q4-6H PRN azithromycin 250 mg PO DIRECTED betamethasone valerate 0.1% 1 appl topical DAILY blood pressure test kit-large As directed cetirizine 10 mg PO DAILY cholecalciferol (vitamin D3) 50 mcg PO DAILY dutasteride 0.5 mg PO DAILY 90 days fluticasone furoate 100 mcg/actuation (Arnuity Ellipta) 1 inh inhalation DAILY furosemide 20 mg PO DAILY hydrochlorothiazide 25 mg PO DAILY levofloxacin 500 mg PO DAILY 3 days ondansetron HCl 4 mg PO Q8H PRN pantoprazole 20 mg PO DAILY polyethylene glycol 3350 (Miralax) 238 grams PO ONCE Saccharomyces boulardii (Probiotic (S.boulardii)) 250 mg PO BID tizanidine 2 mg PO BID PRN tramadol 50 mg PO TID PRN HPI Comments Details: 60-year-old male patient with a previous history of umbilical hernia repair x2 presenting today with a 4 day history of abdominal pain not only in the umbilicus but also in the bilateral flanks. He reports having persistent coughing on a daily basis which seems to be making the pain worse. He feels swelling in the umbilical region in his uncertain of recurrent hernias developed. He denies fever, chills, nausea, vomiting, or other associated symptoms. He most recently underwent repair of a recurrent umbilical hernia on 08/17/2024 her he was found to have a 2 cm umbilical defect repaired with a 6.4 cm round Ventralex mesh. [facility] Medical History Abnormal EKG Arthritis Back pain Scoliosis Habitual snoring Bronchitis Asthma Nocturia GERD (gastroesophageal reflux disease) HTN (hypertension) Surgical History History of umbilical hernia repair (08/17/24) History of appendectomy H/O hand surgery Hx of hernia repair Hx of release of tendon Hx of bilateral inguinal hernia repair Social History Are you a primary reproductive healthcare assistant to a significant other at home: No Do you presently have visiting nurse or other home services: No Alcohol intake: current Alcohol intake frequency: a few times a week Patient Tobacco Use Status: Never used Tobacco Review of Systems Const All systems reviewed & are unremarkable except as noted in HPI and below Physical Exam Vital Signs: Last Vital Signs Pulse 81 06/22/25 15:47 BP 124/70 06/22/25 15:47 BMI result Body Mass Index 34.5 Const General: no acute distress Nutritional Appearance: well nourished Orientation/consciousness: patient oriented x3 Resp Effort & Inspection: normal respiratory effort, no audible wheezes, Actively coughing and no respiratory distress GI Other: Well-healed incision in the umbilicus without redness or discharge. No hernia noted with Valsalva maneuvers. There is tenderness to palpation of the umbilicus as well as tenderness in the bilateral flanks. He has a large pannus but is generally soft and nondistended. Skin Other: Warm, dry, no rash Neuro General: patient oriented x3 Extrem General: Yes no clubbing, cyanosis or edema Assessment & Plan Assessment & Plan (1) Umbilical hernia: Code(s): K42.9 - Umbilical hernia without obstruction or gangrene Category: Medical (2) Bilateral flank pain: Code(s): R10.A3 - Flank pain, bilateral Category: Medical Plan 60-year-old male patient with a prior history of umbilical hernia repair x2 presenting with a persistent cough and resulting complaints of pain in the bilateral flanks and umbilicus. On examination he does have tenderness in the bilateral flanks as well as at the umbilicus but no definite hernia recurrence could be identified. I recommended further evaluation with CT abdomen and pelvis to not only evaluate the hernia repair but also the bilateral flanks. He will return following the CT of the review the results and discuss treatment options. Orders: Orders CT abdomen pelvis wo IV con Today K42.9 - Umbilical hernia without obstruction or gangrene, R10.A3 - Flank pain, bilateral Coding Level of Care Code Est Pt Level 3 (29305) Diagnoses Umbilical hernia K42.9 Bilateral flank pain R10.A3
[2025-06-22 15:47] VITALS: BP 124/70; PULSE 81; BMI 34.5
--- OUTSIDE RECORDS SUMMARY | 2025-06-22 18:40 | XMS_ITS | Encounter Summary ---
Author Organization [employer] Address [address] [facility] [address] [place] [address] Care Team Providers Care Outsole Cutter Machine Name Role Phone Marleen Jovel MD Primary Care Provider [phone] Encounter Details Date Type Department Care Team (Late st Contact Info) Description 10/05/2024 Orders Only [facility] MED & PEDS [address] [place] [address] Provider, MD Wang Social History Tobacco Use [...] documented as of this encounter Care Teams Outsole Cutter Machine Relationship Specialty Start Date End Date Marleen Jovel MD [address] [place] [id number] PCP - General Family Medicine 10/28/23 documented as of this encounter
--- OUTSIDE RECORDS SUMMARY | 2025-06-22 18:40 | XMS_ITS | Clinical Summary ---
Author Organization [employer] Address [address] [facility] 7[address] [place] [address] Care Team Providers Care Medical Coding Instructor Name Role Phone Marleen Jovel MD Primary Care Provider [phone] Allergies No known active allergies Medications * This document contains information received from the source organization and may not represent a complete record from that organization. tiZANidine (Zanaflex) 2 MG capsule Take 1 capsule (2 mg) by mouth every 8 (eight) hours if needed for muscle spasms. 90 capsule 1 4 Active Blood Pressure kit 1 Units Once per day. 1 kit 4 Active betamethasone valerate (Valisone) 0.1 % ointment Apply topically if needed in the morning and at bedtime (dryness). 45 g 4 Active cetirizine (ZyrTEC) 10 MG tabletIndications: Rhinosinusitis,All ergic conjunctivitis of both eyes Take 1 tablet (10 mg) by mouth Once per day. 30 tablet 11 5 026 Active Ketotifen Fumarate 0.035 % solutionIndication s:Allergic conjunctivitis of both eyes Administer 1 drop into affected eye(s) 2 times daily. 10 mL 5 Active albuterol 108 (90 Base) MCG/ACT inhalerIndications :Rhinosinusitis Inhale 2 puffs every 4 (four) hours if needed for wheezing or shortness of breath. 18 g 5 5 026 Active fluticasone furoate (Arnuity Ellipta) 100 MCG/ACT inhalerIndications :Rhinosinusitis Inhale 1 puff Once per day. Rinse mouth with water after use to reduce aftertaste and incidence of candidiasis. Do not swallow. 1 each 5 5 026 Active Spacer/Aero-Holdin g Chambers (OptiChamber Torri) misc 1 each every 4 (four) hours if needed (asthma). 1 each 5 Active triamcinolone (Kenalog) 0.1 % ointmentIndication s:Venous stasis dermatitis Apply topically 2 times daily. 30 g 5 Active furosemide (Lasix) 20 MG tabletIndications: Lower extremity edema Take 1 tablet (20 mg) by mouth Once per day. 3 tablet 5 026 Active triamcinolone (Kenalog) 0.1 % ointmentIndication s:Venous stasis dermatitis Apply topically 2 times daily. 30 g 5 Active dutasteride (Avodart) 0.5 MG capsule Take 1 capsule by mouth Once per day. 5 Active hydrocortisone (Anusol-HC) 2.5 % rectal creamIndications:G rade III hemorrhoids Insert into the rectum 2 times daily. 90 g 1 5 Active senna-docusate sodium (Senokot-S) 8.6-50 MG tabletIndications: Grade III hemorrhoids Take 1 tablet by mouth Once per day. 30 tablet 11 5 026 Active polyethylene glycol, PEG, 3350 (MiraLax) 17 GM/SCOOP powderIndications: Grade III hemorrhoids Take 17 g by mouth Once per day. 527 g 2 5 Active olmesartan-hydroCH LOROthiazide (Benicar HCT) 20-12.5 MG tablet Take 1 tablet by mouth Once per day. 90 tablet 1 5 Active furosemide (Lasix) 40 MG tabletIndications: Lower extremity edema Take 1 tablet (40 mg) by mouth Once per day. 7 tablet 5 Active guaiFENesin-dextro methorphan (Robitussin DM) 100-10 MG/5ML syrupIndications:A cute cough Take 10 mL by mouth every 6 (six) hours if needed for cough. 118 mL 5 Active Active Problems Problem Noted Date [...] referral in the system. Will send to [facility]. Please attach media from ECG done in [...] Description 06/11/2025 3:00 PM EST Office Visit [facility] [address] [place] [address] Marleen Jovel MD Upper respiratory tract infection, unspecified type (Primary Dx); Encounter for immunization; Lower extremity edema; Acute cough 06/11/2025 Travel 05/10/2025 10:00 AM EST Office Visit [facility] [address] [place] [address] Marleen Jovel MD Elevated serum creatinine (Primary Dx); Prostate cancer (CMS/HCC) (HCC); Essential hypertension; Venous stasis dermatitis; Encounter for immunization; Colon cancer screening; Umbilical hernia without obstruction and without gangrene; Grade III hemorrhoids 05/10/2025 Travel 05/03/2025 Patient Outreach [facility] [address] [place] [phone] Marleen Jovel MD Pre-visit Planning ([facility] screening was completed on 03/25/2025) 04/28/2025 Results Follow-Up [facility] [address] [place] [address] Nhung Bearden MD Urinalysis w/reflex microscopic, MR CAD, MR Prostate w and w/o Contrast 04/27/2025 9:30 AM EST Office Visit [facility] [address] [place] [address] Nhung Bearden MD Venous stasis dermatitis (Primary Dx); Gross hematuria 04/27/2025 Orders Only [facility] [address] [place] [phone] Nhung Bearden MD 04/27/2025 Telephone [facility] [address] [place] [address] Violeta Ta RN 04/27/2025 Travel 04/20/2025 1:00 PM EDT Office Visit [facility] [address] [address] Trena Billings MD Cellulitis of lower extremity, unspecified laterality; Lower extremity edema 04/20/2025 Travel 04/01/2025 Telephone [facility] [address] [place] [address] Marleen Jovel MD 03/31/2025 Orders Only [facility] External Provider, [facility] 03/25/2025 10:00 AM EDT Office Visit [facility] [address] [place] [address] Nhung Bearden MD Venous stasis dermatitis (Primary Dx); Essential hypertension; SOB (shortness of breath); Diastolic dysfunction; Other depression 03/25/2025 Travel 03/24/2025 Telephone [facility] [address] [place] [address] Marleen Jovel MD Chart Prep from Last 3 Months Immunizations Immunization Administration [...] series) 05/22/2024 12/18/2023, 11/20/2023 COVID-19 Vaccine ( season) 2025 01/07/2021, 12/17/2020 Alcohol/Substance Use Screening 03/25/2026 03/25/2025 Depression Screening 03/25/2026 03/25/2025, 03/25/20 Disability Screening 03/25/2026 03/25/2025 SDOH Screening 03/25/2026 03/25/2025 Tobacco Screening 06/14/2026 06/14/2025 Lipid Panel 10/27/2028 10/28/2023 DTaP/Tdap/Td Vaccines (2 [...] Procedure Name Priority Date/Time Associated Diagnosis Comments HEPATITIS B SURFACE ANTIBODY, QUALITATIVE Routine 06/11/2025 3:54 PM EST Encounter for immunization BASIC METABOLIC PANEL Routine 06/11/2025 3:54 PM EST Elevated serum creatinine POCT COVID-19 AG [place] ID NOW Routine [...] SWALLOW MODIFIED Routine 03/31/2025 2:22 PM EDT HEPATITIS C AB W/REFL TO [...] Recently Relevant to Health Maintenance Results * Hepatitis B Surface Antibody, Qualitative (06/11/2025 3:54 PM EST) ~Hepatitis B Surface Antibody NONREACTIVE Nonreactive [facility] Comment:Nonreactive: < 8.00 mIU/mL Blood Venous blood specimen / Unknown 06/11/2025 3:54 PM EST 06/11/2025 6:49 PM EST us Marleen Jovel MD LAB BLOOD ORDERABLES Final Re sult [facility] [address] [place] [phone] * (ABNORMAL) Basic Metabolic Panel (06/11/2025 3:54 PM EST) Pathologist [facility] Sodium 143 135 - 145 mmol/L [facility] Potassium 4.1 3.3 - 5.1 mmol/L [facility] Chloride 111(H) 96 - 108 mmol/L [facility] Carbon Dioxide 28 22 - 29 mmol/L [facility] Anion Gap 8(L) 12 - 20 [facility] Urea Nitrogen (BUN) 21(H) 9 - 16 mg/dL [facility] Creatinine, Serum 1.21 0.5 - 1.4 mg/dL [facility] Estimated Glomerular Filt Rate >60 [facility] Comment:Chronic Kidney Disea se: Estimated GFR < 60 mL/min/1.07d5Karunn Kidney Disease: Estimated GFR < 15 mL/min/1.73m2 Glucose 99 60 - 115 mg/dL [facility] Calcium 8.5 8.4 - 10.2 mg/dL [facility] Blood Venous blood specimen / Unknown 06/11/2025 3:54 PM EST 06/11/2025 6:49 PM EST Marleen Jovel MD LAB BLOOD ORDERABLES Final Re sult [facility] [address] [place] [address] [phone] * POCT Rapid Covid-19 [place] ID NOW (06/11/2025 3:28 PM EST) Pathologist [facility] Coronavirus Antigen PCR Negative Negative, Indeterminate, None Detected, Trace, 3+, Specimen unsatisfactory for evaluation, Weakly Positive, 1+, 2+ QC Media Lot # [id number] Lot# Expiration Date [id number] Swab 06/11/2025 3:28 PM EST Marleen Jovel [...] TEST ENTER/EDIT ORDERABLES Final Result * MR CAD (05/14/2025 9:19 AM EST) Anatomical Region Laterality Modality Magnetic Resonan ce 05/14/2025 9:19 AM EST Narrative 05/14/2025 10:41 AM EST [place] [address] Magnetic Resonance Report Signed Patient: Howard Junior MR#: [id number] : 1965 Acct:[id number] Age/Sex: 59 / M ADM Date: 05/14/25 Loc: HO.MRI Attending Dr: Aravind Wilkins MD Ordering Physician: Zaki Harris MD Date of Service: 05/14/25 Procedure(s): MR CAD Accession Number(s): [id number] cc: Zaki Harris MD; Nhung Bearden MD [...] Biopsy: Positive biopsy on 03/09/2025 with a [place] score of 3+3 = 6. FINDINGS: Prostate [...] cancer is highly likely to be present) [employer]. MR Prostate Imaging Reporting and Data System version 2.1. http://www.acr.org/Quality-Safety/Resources/PIRADS/ Electronically signed by: Hussain Aguiar MD 05/14/2025 10:39 AM EST RP Dictated By: Hussain Aguiar MD Signed By: <Electronically signed by Hussain Aguiar MD in OV> 05/14/25 1039 DD/ TD/TT: 05/14/25 0950 Ranch Supervisor: Procedure Note Donotuseinterpreter, Image - 05/14/2025 [place] [address] Magnetic Resonance Report Signed Patient: Howard JuniorMR#: [id number] : 1965Acct:[id number] Age/Sex: 59 / MADM Date: 05/14/25 Loc: HO.MRI Attending Dr: Aravind Wilkins MD Ordering Physician: Zaki Harris MD Date of Service: 05/14/25 Procedure(s): MR CAD Accession Number(s): [id number] cc: Zaki Harris MD; Nhung Bearden MD [...] Biopsy: Positive biopsy on 03/09/2025 with a [place] score of 3+3 = 6. FINDINGS: Prostate [...] cancer is highly likely to be present) [employer]. MR Prostate Imaging Reporting and Data System version 2.1. http://www.acr.org/Quality-Safety/Resources/PIRADS/ Electronically signed by: Hussain Aguiar MD 05/14/2025 10:39 AM EST RP Dictated By: Hussain Aguiar MD Signed By: <Electronically signed by Hussain Aguiar MD in OV> 05/14/25 1039 DD/ 0919 TD/TT: 05/14/25 0950 Ranch Supervisor: us [facility] External Provider IMG MRI PROCEDURES Final Result * MR Prostate w and w/o Contrast (05/14/2025 9:19 AM EST) Anatomical Region Laterality Modality Magnetic Resonan ce 05/14/2025 9:19 AM EST Narrative 05/14/2025 10:41 AM EST [address] [address] Magnetic Resonance Report Signed Patient: Howard Junior MR#: [id number] : 1965 Acct:[id number] Age/Sex: 59 / M ADM Date: 05/14/25 Loc: HO.MRI Attending Dr: Aravind Wilkins MD Ordering Physician: Aravind Wilkins MD Date of Service: 05/14/25 Procedure(s): MR Prostate wo/w con Accession Number(s): [id number] cc: Nhung Bearden MD; Aravind Wilkins MD [...] Biopsy: Positive biopsy on 03/09/2025 with a [place] score of 3+3 = 6. FINDINGS: Prostate [...] cancer is highly likely to be present) [employer]. MR Prostate Imaging Reporting and Data System version 2.1. http://www.acr.org/Quality-Safety/Resources/PIRADS/ Electronically signed by: Hussain Aguiar MD 05/14/2025 10:39 AM EST Dictated By: Hussain Aguiar MD Signed By: <Electronically signed by Hussain Aguiar MD in OV> 05/14/25 1039 DD/ TD/TT: 05/14/25 0950 Ranch Supervisor: Procedure Note Donotuseinterpreter, Image - 05/14/[address] [address] Magnetic Resonance Report Signed Patient: Howard Junior#: [id number] : 1965Acct:[id number] Age/Sex: 59 / MADM Date: 05/14/25 Loc: HO.MRI Attending Dr: Aravind Wilkins MD Ordering Physician: Aravind Wilkins MD Date of Service: 05/14/25 Procedure(s): MR Prostate wo/w con Accession Number(s): [id number] cc: Nhung Bearden MD; Aravind Wilkins MD [...] Biopsy: Positive biopsy on 03/09/2025 with a [place] score of 3+3 = 6. FINDINGS: Prostate [...] cancer is highly likely to be present) [employer]. MR Prostate Imaging Reporting and Data System version 2.1. http://www.acr.org/Quality-Safety/Resources/PIRADS/ Electronically signed by: Hussain Aguiar MD 05/14/2025 10:39 AM EST Dictated By: Hussain Aguiar MD Signed By: <Electronically signed by Hussain Aguiar MD in OV> 05/14/25 1039 DD/ 0919 TD/TT: 05/14/25 0950 Ranch Supervisor: [facility] External Provider IMG MRI PROCEDURES Final Result * Urinalysis w/reflex microscopic (04/27/2025 10:27 AM EST) Color Urine Yellow [facility] Appearance Urine Clear [facility] PH 6.5 5.0 - 9.0 [facility] Glucose Urine UA Negative Negative mg/dL [facility] Urine Blood Negative Negative [facility] Specific [place] - Urine 1.015 1.005 - 1.025 [facility] Urine Protein Negative Neg-Trace mg/dL [facility] Urine Ketones Negative Negative mg/dL [facility] Nitrite Urine Negative Negative [facility] Leukocyte Esterase Urine Negative Negative [facility] 04/27/2025 10:2 7 AM EST 04/27/2025 2:08 PM EST Narrative [facility] - 04/27/2025 2:21 PM EST [id number], Clean Catch us Nhung Bearden MD LAB URINE ORDERABLES Final Result [facility] [address] [place] [phone] * FL BARIUM SWALLOW MODIFIED (03/31/2025 2:22 PM EDT) Anatomical Region Laterality Modality Head, Neck Radiographic Vernell ging 03/31/2025 2:22 PM EDT Narrative 03/31/2025 3:18 PM EDT [address] [address] Fluoroscopy Report Signed Patient: Howard Junior MR#: [id number] : 1965 Acct:[id number] Age/Sex: 59 / M ADM Date: 03/31/25 Loc: KASH Attending Dr: Zonia Gongora MD Ordering Physician: Zonia Gongora MD Date of Service: 03/31/25 Procedure(s): FL Modified Barium Swallow Accession Number(s): [id number] cc: Marleen Jovel MD; Zonia Gongora MD [...] 03/31/25 1515 DD/ 1422 TD/TT: 03/31/25 1445 Ranch Supervisor: Procedure Note Donotuseinterpreter, Image - 03/31/[address] [address] Fluoroscopy Report Signed Patient: Howard JuniorMR#: [id number] : 1965Acct:[id number] Age/Sex: 59 / MADM Date: 03/31/25 Loc: HO.XRAY Attending Dr: Zonia Gongora MD Ordering Physician: Zonia Gongora MD Date of Service: 03/31/25 Procedure(s): FL Modified Barium Swallow Accession Number(s): [id number] cc: Marleen Jovel MD; Zonia Gongora MD [...] 03/31/25 1515 DD/ 1422 TD/TT: 03/31/25 1445 Ranch Supervisor: Result [facility] External Provider IMG FLU OROSCOPY PROCEDURES Final Result * Hepatitis C Antibody with Reflex to HCV, RNA, Quantitative, Real-Time PCR (10/28/2023 10:49 AM EDT) Hepatitis C Antibody Nonreactive Nonreactive [facility] Comment:Antibodies to HCV no t detected; does not exclude early acuteHCV infection. Blood Venous blood specimen / Unknown 10/28/2023 10:49 AM EDT 10/28/2023 2:07 PM EDT Result [facility] Marleen Jovel MD LAB BLOOD ORDERABLES Final Re sult [facility] [address] [place] [phone] * HIV-1/2 Antigen and Antibodies, Fourth Generation, with Reflexes (10/28/2023 10:49 AM EDT) HIV AB/AG Nonreactive Nonreactive [facility] Comment:HIV-1 p24 Ag and/or HIV-1/HIV-2 Ab not detected.A test result that is nonreactive does not exclude thepossibility of exposure to or infection with HIV-1 and/orHIV-2. Nonreactive results in this assay for individualswith prior exposure to HIV-1 and/or HIV-2 may be due toantigen and antibody levels that are below the limit ofdetection of this assay.The [employer] HIV Ag/Ab Combo assay result andsupplemental assay [...] Re sult Performing Organization Address [facility] Co de Phone Number [facility] [address] [place] [phone] [phone] * (ABNORMAL) Lipid Panel, Standard (10/28/2023 10:49 AM EDT) Triglycerides 62 <150 mg/dL [facility] Comment:Desirable Triglyceri de: less than 150 mg/dLBorderline High Triglyceride 150-199 mg/dLHigh Triglyceride: 200-499 mg/dLVery High Triglyceride: greater than or equal to 5OO mg/dL Cholesterol 174 <200 mg/dL [facility] Comment:Desirable Cholestero l: less than 200 mg/dLBorderline High Cholesterol: 200-239 mg/dLHigh Cholesterol: greater than 239 mg/dL LDL Cholesterol Calculated 107(H) <100 mg/dL [facility] Comment:Desirable LDL: less than 100 mg/dLNear Optimal/Above Optimal LDL: 110- 129 mg/dLBorderline High LDL: 130-159 mg/dLHigh LDL: 160-189 mg/dLVery High LDL: greater than or equal to 190 mg/dL HDL Cholesterol 55 >40 mg/dL [facility] Comment:Desirable HDL: grea ter than 40 mg/dL Note: This HDL assay may give artificially low results in patients with liver disease. Blood Venous blood specimen / Unknown 10/28/2023 10:49 AM EDT 10/28/2023 2:07 PM EDT us Marleen Jovel MD LAB BLOOD ORDERABLES Final Re sult Performing Organization Address [facility]/ZIP Co de Phone Number [facility] [address] [place] [address] [phone] from Last 3 Months or Most Recently Relevant to Health Maintenance Insurance [facility] Care Teams Medical Coding Instructor Relationship Specialty Start Date End Date Marleen Jovel MD [address] [place] [address] PCP - General Family Medicine 10/28/23
--- OUTSIDE RECORDS SUMMARY | 2025-06-22 18:40 | XMS_ITS | Encounter Summary ---
Author Organization [employer] Address [address] [facility] [address]t [place] [address] Care Team Providers Care Inventory Management Specialist Name Role Phone Marleen Jovel MD Primary Care Provider [phone] Reason for Visit * Reason Comments Med Refill Encounter Details Date Type Department Care Team ([facility] Contact Info) Description 07/31/2024 Refill [facility] [address] [place], [place] [phone] Marleen Jovel MD [address] [place] [address] Social History Tobacco Use Types Packs/Day Years [...] documented as of this encounter Care Teams Inventory Management Specialist Relationship Specialty Start Date End Date Marleen Jovel MD [address] [place] [phone] PCP - General Family Medicine 10/28/23 documented as of this encounter
--- OUTSIDE RECORDS SUMMARY | 2025-06-22 18:40 | XMS_ITS | Clinical Summary ---
Author Organization [facility] Address [address] [place] [address] Phone Care Team Providers Care Appraisal Manager Name Role Phone Marleen Jovel MD Primary Care Provider [phone] Allergies No known active allergies Medications albuterol [...] Problem Noted Date Diagnosed Date Cellulitis 02/25/2025 Medical History Medical History Date Comments Hypertension [...] Procedure Name Priority Date/Time Associated Diagnosis Comments BASIC METABOLIC PANEL STAT 03/21/2025 4:47 PM EDT from Last 3 Months or Most Recently Relevant to Health Maintenance Results * (ABNORMAL) Basic Metabolic Panel (BMP) (03/21/2025 4:47 PM EDT) Sodium 140 133 - 145 mmol/L LAB CHEMISTRY METHOD 03/21/2025 5:29 PM EDT [facility] Potassium 3.7 3.5 - 5.5 mmol/L LAB CHEMISTRY METHOD [facility] Chloride 104 96 - 110 mmol/L LAB CHEMISTRY METHOD 03/21/2025 5:29 PM T [facility] CO2 29 21 - 32 mmol/L LAB CHEMISTRY METHOD 03/21[facility]2025 5:[facility] Anion Gap 7 3 - 11 LAB CHEMISTRY METHOD 03/21/2025 5:29 PM EDT [facility] Glucose 100 70 - 100 mg/dL LAB CHEMISTRY METHOD 03/21/2025 5:29 PM EDT [facility] BUN 26(H) 5 - 25 mg/dL LAB CHEMISTRY METHOD 03/21/2025 5:29 PM EDT [facility] Creatinine 1.21 0.70 - 1.30 mg/dL LAB CHEMISTRY METHOD 03/21/2025 5:29 PM EDT [facility] eGFR 69 >=60 mL/min/1. 73m2 LAB CHEMISTRY METHOD 03/21/2025 5:29 PM EDT [facility] Comment:Calculation based on the Chronic Kidney Disease Epidemiology Collaboration (CKD-EPI) equation refit without adjustment for race. BUN/Creatinine Ratio 21.5 LAB CHEMISTRY METHOD 03/21/2025 5:29 PM EDT [facility] Calcium 8.8 8.5 - 10.5 mg/dL LAB CHEMISTRY METHOD 03/21/2025 5:29 PM EDT [facility] Blood Venous blood specimen / Unknown Venipuncture / Unknown 03/21/2025 4:47 PM EDT 03/21/2025 5:05 PM EDT us Verónica Gross MD LAB BLOOD ORDERABLES Final Resul t [facility] [address] [place] [address], from Last 3 Months or Most Recently Relevant to Health Maintenance Insurance [facility] PUBLIC PLANS [facility] PLAN Advance Directives * Full Code [...] currently active code status orders. Care Teams Appraisal Manager Relationship Specialty Start Date End Date Marleen Jovel MD [address] [place] [phone] PCP - General Family Medicine 10/02/24
--- OUTSIDE RECORDS SUMMARY | 2025-06-22 18:40 | XMS_ITS | Encounter Summary ---
Author Organization [employer] Address [address] [facility] [address] [place] [address] Care Team Providers Care Wrapper Counter Name Role Phone Marleen Jovel MD Primary Care Provider [phone] Encounter Details Date Type Department Care Team ([facility] st Contact Info) Description 04/28/2025 Results Follow-Up [facility] [address] [place], [place] [phone] Nhung Bearden MD [address] [place] [address] Urinalysis w/reflex microscopic, MR CAD, MR Prostate [...] documented as of this encounter Care Teams Wrapper Counter Relationship Specialty Start Date End Date Marleen Jovel MD [address] [place] [phone] PCP - General Family Medicine 10/28/23 documented as of this encounter
--- OUTSIDE RECORDS SUMMARY | 2025-06-22 18:40 | XMS_ITS | Encounter Summary ---
Author Organization [employer] Address [address] [facility] [address] [place] [address] Care Team Providers Care It Business Systems Analyst Name Role Phone Marleen Jovel MD Primary Care Provider [phone] Encounter Details Date Type Department Care Team (Late st Contact Info) Description 03/22/2025 Orders Only [facility] [address] [place] [address] Provider, MD Wang Social History Tobacco Use [...] documented as of this encounter Care Teams It Business Systems Analyst Relationship Specialty Start Date End Date Marleen Jovel MD [address] [place] [address] PCP - General Family Medicine 10/28/23 documented as of this encounter
== END 2025-06-22 16:07 | disposition home or self-care (01) ==
LOC: HO.HGS 15:16
PROVIDERS: PCP Family Medicine; Visit Provider Surgery
DX: K42.9 Umbilical hernia without obstruction or gangrene (principal); R10.A3 Flank pain, bilateral
CPT/HCPCS: 99213

== ENCOUNTER → 2025-06-22 15:15 | Outpatient (BNVA) | payer OTHER, SELFPAY | PROVIDERS: PCP Family Medicine; Visit Provider Surgery | DX: R10.A3 Flank pain, bilateral (principal); R05.9 Cough, unspecified; R10.33 Periumbilical pain; Z98.890 Other specified postprocedural states; Z87.19 Personal history of other diseases of the digestive system | CPT/HCPCS: 99212 ==